=== PATIENT | male | born 1960 | race Caucasian/White ===

== ENCOUNTER 2023-03-22 13:57 | Outpatient (OUT) | payer OTHER, SELFPAY ==
--- NOTE | 2023-03-22 14:00 | CT_ITS ---
[address] [address] Patient Name: ZENA METZGER MRN: [id number] date: 1960 Sex: M Assigned Patient Location: CT Current Patient Location: Accession/Order Number: [id number] Exam Date: 03/22/2023 14:08 Report Date: 03/23/2023 07:26 At the request of: TYSHAWN SALMON Procedure: CT chest wo con EXAMINATION: CT chest wo con HISTORY: Multiple Pulmonary Nodules R91.8 COMPARISON: 09/22/2022 TECHNIQUE: Multi-planar CT images were created with IV contrast. Axial, Coronal, and Sagittal images. Dose reduction techniques were achieved by using automated exposure control and/or adjustment of mA and/or kV according to patient size and/or use of iterative reconstruction technique. FINDINGS: LUNGS: Stable 1.3 x 0.5 cm irregularly shaped solid pulmonary nodule in the left upper lobe best seen on axial images 23 through 25. There is been interval development of subpleural opacity measuring 10.5 x 9.4 mm on axial image 37. New area of subtle groundglass attenuation identified in the right lower lobe measuring 5.1-3.3 cm PLEURA: No pneumothorax or pleural effusion VASCULATURE: No abnormality. KM: No mass or adenopathy. MEDIASTINUM: No mass or adenopathy. CARDIAC: No enlargement or pericardial effusion. Moderate coronary atherosclerosis AORTA: Right-sided aortic arch. Mild atherosclerosis CHEST WALL: No mass or axillary adenopathy. BONES: No bone lesion or fracture. LIMITED ABDOMEN: No suspicious findings. Limited images of the upper abdomen. OTHER: Negative. CT/CT chest wo con IMPRESSION: Stable 1.3 x 0.5 cm left upper lobe nodule New subpleural nodule superior segment right lower lobe New 5.1 cm area of groundglass attenuation the right lower lobe Continued surveillance recommended, consider follow-up CT exam in 3 months Electronically authenticated by: ARMANDO RESENDIZ Date: 03/23/2023 07:26
== END 2023-03-22 13:58 | disposition home or self-care (01) ==
LOC: CT 13:57
PROVIDERS: Visit Provider Internal Medicine
DX: R91.8 Other nonspecific abnormal finding of lung field (principal)
CPT/HCPCS: 71250

== ENCOUNTER 2023-04-21 15:31 | Outpatient (OUT) | payer OTHER, SELFPAY ==
[2023-04-21 15:57] LABS: Basophils Percent Auto 0.5 % (0.2-2.0); Hematocrit 43.1 % (42.0-54.0); Hemoglobin 14.8 g/dL (14.0-18.0); Immature Granulocytes Abs Auto 0.04 10^3/uL (0.00-0.03); Immature Granulocytes Pct Auto 0.5 % (0.0-0.5); Lymphocytes Absolute Auto 1.2 10^3/uL (1.2-3.8); Lymphocytes Percent Auto 16.4 % (20.5-60.0); Mean Corpuscular HGB Conc 34.3 g/dL (29.9-35.2); Mean Corpuscular Hemoglobin 31.8 pg (25.9-34.0); Mean Corpuscular Volume 92.7 fL (80.0-94.0); Mean Platelet Volume 10.1 fL (9.5-13.5); Monocytes Absolute Auto 0.7 10^3/uL (0.3-0.8); Monocytes Percent Auto 8.7 % (1.7-12.0); Neutrophils Absolute Auto 5.6 10^3/uL (1.4-6.5); Neutrophils Percent Auto 73.9 % (43.0-75.0); Platelet Count 213 10^3/uL (150-450); Red Blood Count 4.65 10^6/uL (4.70-6.10); Red Cell Distribution Width 12.9 % (11.0-15.0); White Blood Count 7.5 10^3/uL (4.0-11.0)
[2023-04-21 16:11] LABS: Alanine Aminotransferase 20 U/L (16-63); Albumin Globulin Ratio 1.3; Alkaline Phosphatase 89 U/L (46-116); Anion Gap 9.7; Aspartate Amino Transferase 12 U/L (15-37); BUN Creatinine Ratio 12.9; Bilirubin Total 0.7 mg/dL (0.2-1.0); Calcium 8.4 mg/dL (8.5-10.1); Carbon Dioxide 30.7 mmol/L (21.0-32.0); Chloride 104 mmol/L (98-107); Chol HDL Ratio 2.5; Cholesterol 112 mg/dL (<=200); Estimated GFR (African America >60 (>=60); Estimated GFR (Non-African Ame >60 (>=60); Globulin 3.2 g/dL; Glucose 74 mg/dL (74-106); HDL Cholesterol 45 mg/dL (40-60); LDL Cholesterol Calculated 58.2 mg/dL; Potassium 4.4 mmol/L (3.5-5.1); Sodium 140 mmol/L (136-145); Total Protein 7.2 g/dL (6.4-8.2); Triglycerides 44 mg/dL (<=150); VLDL CHOLESTEROL 8.8 mg/dL
== END 2023-04-21 15:32 | disposition home or self-care (01) ==
PROVIDERS: PCP Family Medicine; Visit Provider Nurse Practitioner Acute Care
DX: I25.10 Atherosclerotic heart disease of native coronary artery without angina pectoris (principal)
CPT/HCPCS: 36415; 80053; 80061; 85025

== ENCOUNTER 2023-06-21 14:36 | Outpatient (OUT) | payer OTHER, SELFPAY ==
--- NOTE | 2023-06-21 14:38 | CT_ITS ---
The [address] [address] Patient Name: ZENA METZGER MRN: [id number] date: 1960 Sex: M Assigned Patient Location: CT Current Patient Location: Accession/Order Number: [id number] Exam Date: 06/21/2023 14:46 Report Date: 06/22/2023 01:57 At the request of: TYSHAWN SALMON Procedure: CT chest wo con EXAMINATION: CT chest wo con HISTORY: Multiple Pulmonary Nodules ; follow-up nodules COMPARISON: CT chest 03/22/2023 TECHNIQUE: Multi-planar CT images were obtained without and/or with IV contrast as indicated by examination type. Axial, Coronal, and Sagittal images. Dose reduction techniques were achieved by using automated exposure control and/or adjustment of mA and/or kV according to patient size and/or use of iterative reconstruction technique. FINDINGS: LUNGS: No suspicious pulmonary nodules or acute infiltrates. Mild emphysematous changes. PLEURA: No mass, effusion, or pneumothorax. VASCULATURE: No abnormality. KM: No mass or adenopathy. MEDIASTINUM: No mass or adenopathy. CARDIAC: No enlargement, pericardial thickening, or significant calcification. AORTA: No aneurysm or dissection. CHEST WALL: No mass or axillary adenopathy. BONES: No bone lesion or fracture. LIMITED ABDOMEN: No suspicious findings Limited images of the upper abdomen. OTHER: Negative. CT/CT chest wo con IMPRESSION: 1. Lung-RADS 2- Benign Appearance or Behavior. Nodules with a very low likelihood of becoming a clinically active cancer due to size or lack of growth. Follow-up CT Chest in 1 year. Electronically authenticated by: ANDREW GIBBONS Date: 06/22/2023 01:57
== END 2023-06-21 14:37 | disposition home or self-care (01) ==
LOC: CT 14:36
PROVIDERS: PCP Family Medicine; Visit Provider Internal Medicine
DX: R91.8 Other nonspecific abnormal finding of lung field (principal)
CPT/HCPCS: 71250

== ENCOUNTER 2023-07-26 07:26 | Outpatient (OUT) | payer OTHER, SELFPAY ==
--- NOTE | 2023-08-01 15:47 | W.PM.PROCNOT ---
Date of procedure: 07/22/23 Procedure: 6-Minute Walk Test Indication: Chronic hypoxic respiratory failure Baseline data: Initial blood pressure: 110/71 Initial heart rate: 96 Initial oxygenation: SpO2 95% on room air. Initial Ancelmo score: 0 MMRC: 2 Procedure: A 6-Minute Walk Test was initiated according to standard protocol. The patient ambulated for a total of 6 minutes with the lowest documented SpO2 measured at 91% on room air with a maximum heart rate of 111. The maximum Ancelmo score was 4, which was at the end of the walk. Symptoms reported: lightheaded . During recovery, blood pressure was 116/69 with a heart rate of 98. SpO2 was 96% on room air, with Ancelmo score 3. Total number of stops: 0. Total distance walked was 308m, which was 67% of predicted walk distance. Impressions: No desaturations during ambulation. Mildly decreased walk distance. Unclear relationship with complaints of lightheaded compared to heart rate, SpO2, or Ancelmo score. Recommendations: No supplemental O2 required with rest and ambulation/activity. Clinical correlation required. Surgeon: Shade Nuñez
== END 2023-07-26 11:22 | disposition home or self-care (01) ==
LOC: CARD 07:26
PROVIDERS: PCP Internal Medicine; Visit Provider Internal Medicine
DX: J96.11 Chronic respiratory failure with hypoxia (principal)
CPT/HCPCS: 94618

== ENCOUNTER 2024-03-11 06:03 | Emergency (ER) | payer OTHER, SELFPAY ==
[2024-03-11 06:06] VITALS: BP 131/70; PULSE 85; TEMP 36.5; O2SAT 97; BMI 23.3
--- OUTSIDE RECORDS SUMMARY | 2024-03-11 06:10 | XMS_ITS | CCD ---
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 Celso Rico Attending Sandi vailable Sam, Dr. Tyshawn Dickson Referring Unavailab le Mel Bansal Primary Care Unavailable MD Dex Mas Attending Unavailable Mel Bansal Primary Care Unavailable Clover, Dr. Celso Rico Referring Sandi MD Dex Mayer Admitting Unavailable DIPESH, PK Attending Unavailable DIPESH, PK Admitting Unavailable BANSAL, DR MEL Calero Primary Care Unavailable DIPESH, PK Consulting Unavailable BANSAL, DR MEL Calero Primary Care Unavailable SAMSA, TYSHAWN Attending Unavailable SAMSA, TYSHAWN Admitting Unavailable WEST, DR ARMANDO Gooden Consulting Unavailable SAMSA, TYSHAWN Consulting Unavailable DIPESH, PK Attending Unavailable DIPESH, PK Admitting Unavailable BANSAL, DR MEL Calero Primary Care Unavailable DIPESH, PK Consulting Unavailable DIPESH, PK Attending Unavailable DPIESH, PK Admitting Unavailable BANSAL, DR MEL Calero Primary Care Unavailable DIPESH, PK Consulting Unavailable DIPESH, PK Admitting Unavailable BANSAL, DR MEL Calero Primary Care Unavailable DIPESH, PK Consulting Unavailable DIPESH, PK Attending Unavailable BANSAL, DR MEL Calero Primary Care Unavailable BANSAL, DR MEL Calero Attending Unavailable BANSAL, DR MEL Calero Admitting Unavailable BANSAL, DR MEL Calero Consulting Unavailable SAMSA, TYSHAWN Consulting Unavailable BANSAL, DR MEL Calero Primary Care Unavailable WEST, DR ARMANDO Gooden Consulting Unavailable SAMSA, TYSHAWN Attending Unavailable SAMSA, TYSHAWN Admitting Unavailable SAMSA, TYSHAWN Consulting Unavailable NIMISHA, DR MEL Calero Primary Care Unavailable ALESSIA DURHAM Attending Unavailable ALESSIA DURHAM Admitting Unavailable MARKER, DR WHITTINGTON Consulting Unavailable ALESSIA DURHAM Consulting Unavailable ARMANDO ZULETA Consulting Unavailable NIMISHA, DR MEL Calero Primary Care Unavailable NIMISHA, DR MEL Calero Consulting Unavailable NIMISHA, DR MEL Calero Attending Unavailable NIMISHA, DR MEL Calero Admitting Unavailable URIOSTEGUI, TAMIE Consulting Unavailable NIMISHA, DR MEL Calero Primary Care Unavailable SAMSA, TYSHAWN Attending Unavailable SAMSA, TYSHAWN Admitting Unavailable SAMSA, TYSHAWN Consulting Unavailable NIMISHA, DR MEL Calero Primary Care Unavailable SAMSA, TYSHAWN Attending Unavailable SAMSA, TYSHAWN Admitting Unavailable SAMSA, TYSHAWN Consulting Unavailable NIMISHA, DR MEL Calero Primary Care Unavailable SAMSA, TYSHAWN Attending Unavailable SAMSA, TYSHAWN Admitting Unavailable SAMSA, TYSHAWN Consulting Unavailable POLICARO, ANGELITO Consulting Unavailable NIMISHA, DR MEL Calero Consulting Unavailable NIMISHA, DR MEL Calero Primary Care Unavailable NIMISHA, DR MEL Calero Attending Unavailable NIMISHA, DR MEL Calero Admitting Unavailable Nimisha, Dr. Mel Fox Primary Care Unavailab jerry Bansal, Dr. Mel Fox Referring Unavailab jerry Marquez, Dr. Luiz Franz Attending Unavail able Mel Bansal MD Primary Care Provider CELSO IBARRA Attending Unavailable MEL BANSAL Primary Care Unavailable MACK HAAS Attending Unavailable CARLEEN HECTOR Attending Unavailable Medications Current Medications Medication Drug Class(es) Dates Sig (Normalized) Sig (Original) [id number] 200 actuat albuterol 0.09 mg/actuat metered dose inhaler (5 sources) beta2-Adrenergic Agonist take 2 puff(s) by inhalation every four hours albuterol (ProAir HFA) 90 mcg/actuation inhaler Inhale 2 puffs every 4 hours if needed. 0 Active take 2 puff(s) by in halation every four hours as needed ProAir HFA 108 (90 Base) MCG/ACT AERS INHALE 2 PUFFS EVERY 4 HOURS NEEDED Quantity: 0 Refills: 0 Ordered: 13-May-2022 DO Active albuterol 0.833 mg/ml / ipratropium bromide 0.167 mg/ml inhalation solution (5 sources) Anticholinergic, beta2-Adrenergic Agonist take 3 mL by inhalation every four hours as needed ipratropium-albuteroL (Duo-Neb) 0.5-2.5 mg/3 mL nebulizer solution Take 3 mL by nebulization every 4 hours if needed. 0 Active take 1 [IU] by inhal ation every four hours as needed Ipratropium-Albuterol 0.5-2.5 (3) MG/3ML Inhalation Solution USE 1 UNIT DOSE IN NEBULIZER EVERY 4 HOURS NEEDED. Quantity: 0 Refills: 0 Ordered: 13-May-2022 DO Active ascorbic acid 1000 mg oral tablet (5 sources) Vitamin C take 1 tablet by mouth once daily ascorbic acid (Vitamin C) 1,000 mg tablet Take 1 tablet (1,000 mg) by mouth once daily. 0 Active aspirin 81 mg delayed release oral tablet (5 sources) Platelet Aggregation Inhibitor, Nonsteroidal Anti-inflammatory Drug take 1 tablet by mouth once daily aspirin 81 mg EC tablet Take 1 tablet (81 mg) by mouth once daily. 0 Active atorvastatin 40 mg oral tablet (5 sources) HMG-CoA Reductase Inhibitor take 1 tablet by mouth once daily atorvastatin (Lipitor) 40 mg tablet Take 1 tablet (40 mg) by mouth once daily. 0 Active empagliflozin 10 mg oral tablet (5 sources) Sodium-Glucose Cotransporter 2 Inhibitor take 1 tablet by mouth once daily empagliflozin (Jardiance) 10 mg Take 1 tablet (10 mg) by mouth once daily. 0 Active 60 actuat formoterol fumarate 0.005 mg/actuat / mometasone furoate 0.2 mg/actuat metered dose inhaler (5 sources) Corticosteroid, beta2-Adrenergic Agonist take 2 puff(s) by inhalation twice daily mometasone-formoterol (Dulera) 200-5 mcg/actuation inhaler Inhale 2 puffs 2 times a day. 0 Active meclizine hydrochloride 25 mg oral tablet (5 sources) Antiemetic meclizine (Antiv ert) 25 mg tablet Take by mouth. TAKE DIRECTED. 0 Active Meclizine HCl - 25 MG Oral Tablet TAKE DIRECTED. Quantity: 0 Refills: 0 Ordered: 13-May-2022 DO Active 24 hr metoprolol succinate 25 mg extended release oral tablet (5 sources) beta-Adrenergic Maverick take 1 tablet by mouth once daily metoprolol succinate XL (Toprol-XL) 25 mg 24 hr tablet Take 1 tablet (25 mg) by mouth once daily. 0 Active sacubitril 24 mg / valsartan 26 mg oral tablet (5 sources) Angiotensin 2 Receptor Maverick take 1 tablet by mouth once daily sacubitriL-valsartan (Entresto) 24-26 mg tablet Take 1 tablet by mouth once daily. 0 Active 10 actuat tiotropium 0.0025 mg/actuat inhalation spray (5 sources) Anticholinergic take 2 puff(s) by inhalation once daily tiotropium (Spiriva Respimat) 2.5 mcg/actuation inhaler Inhale 2 puffs once daily. 0 Active Spiriva Respimat 2.5 MCG/ACT Inhalation Aerosol Solution TAKE 2 INHALATIONS DAILY. Quantity: 0 Refills: 0 Ordered: 13-May-2022 DO Active Problems Active Problems Problem Classification Problem Date Documented Date Episodic/Chronic Biliary tract disease (5 sources) Biliary calculus; Translations: [Calculus of gallbladder without mention of cholecystitis, without mention of obstruction] Onset: 07-10-2023 07-10-2023 Episodic Chronic obstructive pulmonary disease and bronchiectasis (15 sources) Centriacinar emphysema; Translations: [Other emphysema] Onset: 03-29-2022 Chronic Complications of surgical procedures or medical care (2 sources) Hypotension due to drugs; Translations: [Hypotension due to drugs] Onset: 11-21-2023 Episodic Congestive heart failure; nonhypertensive (11 sources) Chronic systolic heart failure; Translations: [Chronic systolic heart failure] Onset: 03-24-2022 Chronic Coronary atherosclerosis and other heart disease (7 sources) Coronary arteriosclerosis; Translations: [Coronary atherosclerosis of unspecified type of vessel, anvik or graft] Onset: 10-25-2022 07-10-2023 Chronic Headache; including migraine (4 sources) Headache; including migraine; Translations: [HEADACHE UNSPECIFIED] Onset: 06-09-2022 Heart valve disorders (1 source) Rheumatic disorders of both mitral and tricuspid valves; Translations: [RHEUMATIC D/O MITRAL TRICUSPID VALV] Onset: 12-02-2021 Chronic Other lower respiratory disease (4 sources) Multiple nodules of lung; Translations: [Other nonspecific abnormal finding of lung field] Episodic Other lower respiratory disease (11 sources) Other nonspecific abnormal finding of lung field; Translations: [Other nonspecific abnormal finding of lung field] Onset: 05-13-2022 Episodic Other lower respiratory disease (2 sources) Nodule of lung; Translations: [Solitary pulmonary nodule] Onset: 07-10-2023 07-12-2023 Episodic Other lower respiratory disease (2 sources) Solitary pulmonary nodule; Translations: [Solitary pulmonary nodule] Onset: 07-12-2023 Episodic Other upper respiratory disease (5 sources) Allergic rhinitis; Translations: [Allergic rhinitis, cause unspecified] Onset: 07-10-2023 07-10-2023 Chronic Respiratory failure; insufficiency; arrest (adult) (10 sources) Chronic hypoxemic respiratory failure; Translations: [Chronic respiratory failure] Onset: 07-10-2023 07-12-2023 Chronic Comment on above: Uses O2 with during heat and humidity; Substance-related disorders (12 sources) Tobacco dependence syndrome; Translations: [Unspecified drug-induced mental disorder] Onset: 10-29-2021 07-12-2023 Chronic Thyroid disorders (5 sources) Hypothyroidism; Translations: [Unspecified acquired hypothyroidism] Onset: 07-10-2023 07-10-2023 Chronic Unclassified (1 source) CONTACT W/AND (SUSP) EXPOS COVID-19; Translations: [CONTACT W/AND (SUSP) EXPOS COVID-19] Onset: 12-23-2021 Past or Other Problems Problem Classification Problem Date Documented Da te Episodic/Chronic Blindness and vision defects (1 source) Unspecified visual disturbance; Translations: [UNSPECIFIED VISUAL DISTURBANCE] Onset: 06-11-2022 Episodic Conditions associated with dizziness or vertigo (1 source) Dizziness and giddiness; Translations: [DIZZINESS AND GIDDINESS] Onset: 06-11-2022 Episodic Nonspecific chest pain (6 sources) Chest pain, unspecified; Translations: [Other chest pain] Onset: 10-14-2021 Episodic Other aftercare (1 source) Other usp (current) drug therapy; Translations: [OTH PRISON CURRENT DRUG THERAPY] Onset: 10-14-2021 Episodic Other connective tissue disease (1 source) Pain in arm, unspecified; Translations: [PAIN IN ARM UNSPECIFIED] Onset: 10-29-2021 Episodic Other ear and sense organ disorders (1 source) Tinnitus, unspecified ear; Translations: [TINNITUS UNSPECIFIED EAR] Onset: 06-11-2022 Episodic Other lower respiratory disease (4 sources) Other forms of dyspnea; Translations: [OTHER FORMS OF DYSPNEA] Onset: 11-27-2021 Episodic Other screening for suspected conditions (not mental disorders or infectious disease) (1 source) Encounter for screening for malignant neoplasm of respiratory organs; Translations: [ENC SCREEN MALIG NEOPLASM RESP ORGN] Onset: 03-29-2022 Episodic Results Test Name Value Interpretation Reference Range Facility Office Visiton 11-21-2023 Follow-up visit [id number] Zena Lopez 1960 M Date Provider Department Center 11/21/2023 [facility]LEEN TINSLEY [facility] Family History Problem Relation Age of Onset Cancer Mother Family Status - Relation Status Age at Mother Level of Service:70069 MD OFFICE/OUTPATIENT ESTABLISHED MOD MDM 30 MIN Normal [facility] Office Visiton 04-21-2023 Follow-up visit [id number] Zena Lopez 1960 M Date Provider Department Center 04/21/2023 [id number] Family History Problem Relation Age of Onset Cancer Mother Family Status - Relation Status Age at Mother Level of Service:51298 MD OFFICE/OUTPATIENT ESTABLISHED LOW MDM 20-29 MIN Reason for Visit and Comments: Follow-up [607298] - 6 month follow up Normal [facility] Office Visit (Thoracic and E sophageal Surgery)on 04-14-2023 Follow-up visit Diagnoses/Problems Assessed Centrilobular emphysema (492.8) (J43.2) Provider Impressions Mr. Lopez is a pleasant 61-year-old male with a significant history of COPD, moderate to severe, who presents with a lateral left upper lobe 1.3 cm nodule new from last March. CT guided bx was non-diagnostic in June. On recent CT from March this ANDRE lesion is stable. New large RLL GGO which is most likely infectious. He has f/up scan scheduled for June with Dr. Nuñez, we will f/up that scan as well and schedule a virtual visit to follow. Chief Complaint A telephone visit (audio only) between the patient (at the originating site) and the provider (at the distant site) was utilized to provide this telehealth service. Virtual visit History of Present IllnessMr. Lopez is a 61-year-old male with a left upper lobe lung nodule (non-diagnostic biopsy in Jun 2022) who presents with surveillance imaging (at OSH). Stable 1.3 x 0.5cm left upper lobe nodule. Patient denies any significant change in his COPD recently (followed by Dr. Nuñez), no worsening cough or worsening dyspnea.Denies recent hospitalizations. By way of review: patient was referred to me in fall; he has a h/o moderate to severe COPD followed by Dr. Nuñez, Pulmonology. Patient was noted on recent imaging to have bilateral upper lobe nodules. Left upper lobe nodule was 1.3 x 0.6 cm in size, right upper lobe nodule with 0.9 x 0.7 cm in size. These were reportedly new compared to March 2021. The left upper lobe nodule is PET avid with SUV of 2.8, right upper lobe nodule was not PET avid. This was discussed with him by Dr. Oliver's office and he was referred to me. Patient is on 3 inhalers for his COPD. He was hospitalized in 2019 with a severe respiratory infection requiring 2-week hospital stay. Patient had been worked up recently for a 'weak heart' with echo that showed EF of 53%, RVSP 22. And reported negative cardiac catheterization. There is some discussion of perhaps a cardiomyopathy. No h/o IL. Patient had a prior drinking history many years ago. Current smoker, several cigarettes per day down from 2 packs/day. Review of Systems Constitutional: not feeling tired. Eyes: no eyesight problems. ENT: no hearing loss and no nosebleeds. Cardiovascular: no intermittent leg claudication and as noted in HPI. Respiratory: no chronic cough and no shortness of breath. Gastrointestinal: no change in bowel habits and no blood in stools. Genitourinary: no urinary frequency and no hematuria. Skin: no skin rashes. Neurological: no seizures and no frequent falls. Psychiatric: no depression and not suicidal. All other systems have been reviewed and are negative for complaint. Active Problems Problems CAD (coronary artery disease) (414.00) (I25.10) Centrilobular emphysema (492.8) (J43.2) Cholelithiasis without cholecystitis (574.20) (K80.20) Chronic respiratory failure with hypoxia, on home O2 therapy (518.83,799.02,V46.2) (J96.11,Z99.81) Uses O2 with during heat and humidity Cigarette nicotine dependence with nicotine-induced disorder (292.9) (F17.219) Hypothyroid (244.9) (E03.9) Multiple pulmonary nodules (793.19) (R91.8) Overt chronic systolic congestive heart failure (428.22,428.0) (I50.22) Rhinitis, allergic (477.9) (J30.9) Surgical History Problems History of Cyst excision R knee History of Knee arthroscopy Right Family History Mother Family history of malignant neoplasm (V16.9) (Z80.9) Father Family history of cardiac disorder (V17.49) (Z82.49) Social History Problems Current smoker (305.1) (F17.200) 2 ppd X 44 yrs, currently 4 cig day(2021) Allergies NoKnown No Known Allergies Updated By: Anastasia Da Silva; 05/06/2022 10:41:13 AM Current Meds Medication NameInstruction Aspirin 81 MG Oral Tablet Delayed ReleaseTAKE 1 TABLET DAILY. Atorvastatin Calcium 40 MG Oral TabletTAKE 1 TABLET DAILY. Dulera 200-5 MCG/ACT Inhalation AerosolINHALE 2 PUFFS, BY MOUTH, TWICE DAILY. Entresto 24-26 MG Oral TabletTake 1 tablet daily Ipratropium-Albuterol 0.5-2.5 (3) MG/3ML Inhalation SolutionUSE 1 UNIT DOSE IN NEBULIZER EVERY 4 HOURS NEEDED. Jardiance 10 MG Oral TabletTAKE 1 TABLET BY MOUTH ONCE DAILY Meclizine HCl - 25 MG Oral TabletTAKE DIRECTED. Metoprolol Succinate ER 25 MG Oral Tablet Extended Release 24 HourTAKE 1 TABLET DAILY. ProAir HFA 108 (90 Base) MCG/ACT AERSINHALE 2 PUFFS EVERY 4 HOURS NEEDED Spiriva Respimat 2.5 MCG/ACT Inhalation Aerosol SolutionTAKE 2 INHALATIONS DAILY. Vitamin C 1000 MG Oral TabletTAKE 1 TABLET DAILY. Physical Exam Virtual visit only Results/Data CT chest personally reviewed Signatures Electronically signed by : Celso Ibarra DO; May 03 2023 10:38AM EST (Author) Normal [facility] Consultation Noteon 02-25- 23 Consultation Note [id number]#[id number] CD:127 Normal [facility] CT CHEST WO CONon 09-22-2022 CT CHEST WO CON EXAMINATION: CT CHES T WO CON HISTORY: Lung field abnormal COMPARISON: 03/12/2019, 03/24/2022, 04/10/2022 TECHNIQUE: Multi-planar CT images were created with IV contrast. Axial, Coronal, and Sagittal images. Dose reduction techniques were achieved by using automated exposure control and/or adjustment of mA and/or kV according to patient size and/or use of iterative reconstruction technique. FINDINGS: LUNGS: Slight decrease in size of an irregularly-shaped solid noncalcified soft tissue left upper lobe nodule, now measuring a maximum of 1.3 x 0.5 cm axial images 19 and 20. Interval resolution of 9 mm subpleural nodule previously identified in the right upper lobe. No new significant pulmonary nodule or mass. PLEURA: No mass, effusion, or pneumothorax. VASCULATURE: No abnormality. KM: No mass or adenopathy. MEDIASTINUM: No mass or adenopathy. CARDIAC: No enlargement or pericardial effusion. Moderate coronary atherosclerosis AORTA: Right-sided aortic arch. Mild atherosclerosis. CHEST WALL: No mass or axillary adenopathy. BONES: No bone lesion or fracture. LIMITED ABDOMEN: No suspicious findings. Limited images of the upper abdomen. OTHER: Negative. IMPRESSION: Slight decrease in size of a left upper lobe solid noncalcified pulmonary nodule, indeterminate. Electronically authenticated by: ARMANDO RESENDIZ Date: 2022-09-22 15:11 Normal [facility] CBCon 06-28-2022 Erythrocyte distribution width (RBC) [Ratio] 12.8 % Normal 11.5 - 14.5 [facility] Comment on above: Performed By: #### C BC #### [address] [address] Hematocrit (Bld) [Volume fraction] 48.1 % Normal 41.0 - 52.0 [facility] Comment on above: Performed By: #### C BC #### [address] [address] Hemoglobin (Bld) [Mass/Vol] 16.4 g/dL Normal 13.5 - 17.5 [facility] Comment on above: Performed By: #### C BC #### [address] [address] MCHC (RBC) [Mass/Vol] 34.1 g/dL Normal 32.0 - 36.0 [facility] Comment on above: Performed By: #### C BC #### [address] [address] MCV (RBC) [Entitic vol] 93 fL Normal 80 - 100 [facility] Comment on above: Performed By: #### C BC #### [address] [address] NUCLEATED RBC 0.0 /100 WBC Normal 0.0 - 0.0 [facility] Comment on above: Performed By: #### C BC #### [address] [address] Platelets (Bld) [#/Vol] 189 10*3/uL Normal 150 - 450 [facility] Comment on above: Performed By: #### C BC #### [address] [address] RBC 5.18 x10E12/L Normal 4.50 - 5.90 [facility] Comment on above: Performed By: #### C BC #### [address] [address] WBC (Bld) [#/Vol] 8.3 10*3/uL Normal 4.4 - 11.3 [facility] Comment on above: Performed By: #### C BC #### [address] [address] CHEST 1 VIEWon 06-28-2022 CHEST 1 VIEW Patient Name: ZENA LOPEZ STUDY: CHEST 1 VIEW; 06/28/2022 2:43 pm INDICATION: left lung biopsy . COMPARISON: 10/12/2021 ACCESSION NUMBER(S): [id number] ORDERING CLINICIAN: DEX MAS FINDINGS: CARDIOMEDIASTINAL SILHOUETTE: Cardiomediastinal silhouette is normal in size and configuration. LUNGS: Patchy opacity left upper lobe, likely combination of the previously noted upper lobe nodule and sequela of interval biopsy. No pneumothorax. No pleural effusion. ABDOMEN: No remarkable upper abdominal findings. BONES: No acute osseous changes. IMPRESSION: 1. Left upper lobe patchy airspace opacity, likely combination of previously noted pulmonary nodule and sequela of biopsy. No pneumothorax. Electronically signed by: RAMONA ONEAL MD [facility] CHEST 1 VIEW Patient Name: ZENA LOPEZ STUDY: CHEST 1 VIEW; 06/28/2022 1:41 pm INDICATION: Left lung biopsy . COMPARISON: 06/28/2022 ACCESSION NUMBER(S): [id number] ORDERING CLINICIAN: DEX MAS FINDINGS: DEVICES: None CARDIOMEDIASTINAL SILHOUETTE: Cardiomediastinal silhouette is normal in size and configuration.Right-si ded aortic arch. No significant atherosclerotic calcification LUNGS: Improved opacity in the left upper lobe since yesterday. No pneumothorax. No pleural effusion. BONES: No acute osseous changes. IMPRESSION: 1. Interval improvement left apical focal opacity since yesterday. No pneumothorax. Electronically signed by: RAMONA ONEAL MD [facility] IN BIOPSY LUNG PERCUTANEOUS NEEDLEon 06-28-2022 IN BIOPSY LUNG PERCUTANEOUS NEEDLE Patient Name: ZENA LOPEZ STUDY: IN BIOPSY LUNG; PERCUTANEOUS NEEDLE; 06/28/2022 12:15 pm INDICATION: CT needle biopsy ANDRE R91.8: Multiple pulmonary nodules. COMPARISON: None. ACCESSION NUMBER(S): [id number] ORDERING CLINICIAN: CELSO IBARRA TECHNIQUE: SEISMOGRAPHER: Dex Mas MD CONSENT: The patient was informed of the nature of the proposed procedure. The purposes, alternatives, risks, and benefits were explained and discussed. All questions were answered and consent was obtained. RADIATION EXPOSURE: Dose: Exam DLP 449 mGy cm SEDATION: Moderate conscious intravenous sedation services (supervision of administration, induction, and maintenance) were provided by the physician performing the procedure with intravenous fentanyl and versed. Total intra-service sedation time from 8644-1218 hours (25 minutes). The physician was assisted by an independent trained observer, an interventional radiology nurse, in the continuous monitoring of the patient level of consciousness and physiologic status. MEDICATION/CONTRAST: None additional TIME OUT: A time out was performed immediately prior to the procedure start with interventional team, correctly identifying the patient using multiple identifiers and ensuring the appropriate procedure and anatomy (including laterality, if applicable) were identified. The procedure consent form and all relevant laboratory and imaging tests were reviewed. The need for antibiotic administration or patient or procedure specific safety precautions or equipment was reviewed. COMPLICATIONS: None immediate FINDINGS: The patient was positioned supine on the CT scan table. A limited CT scan of the chest was obtained. The left upper lobe lung nodule was identified. Utilizing the CT laser, the overlying skin was marked. The skin overlying this site was prepped and draped in sterile fashion. Local anesthesia was achieved using 2% lidocaine. A small skin incision was made with a scalpel. A 19 gauge coaxial needle was then advanced utilizing intermittent CT guidance. When CT confirmed the tip of the needle within the target lesion, the inner stylet was removed and a biopsy sample was obtained with a 20 gauge biopsy needle. A total of 3 samples were obtained. Samples submitted in formalin for surgical pathology. The stylet was replaced and the needle withdrawn. A sterile, occlusive dressing was applied. The patient tolerated the procedure well with no immediate postprocedural complications. A small, expected amount of perilesional hemorrhage is identified. No pneumothorax. IMPRESSION: CT-guided left upper lobe pulmonary nodule biopsy as above. Electronically signed by: DEX MAS MD Normal [facility] PT/INRon 06-28-2022 PT Coag (PPP) [Time] 12.2 s Normal 9.8 - 13.4 [facility] Comment on above: Performed By: #### P TINR #### [place] [address] PT, INR 1.1 Normal 0.9 - 1.1 [facility] Comment on above: Performed By: #### P TINR #### [place] [id number] [facility] Surgical Pathology Depar tmenton 06-28-2022 [facility] [facility] Surgical Pathology Department Name ZENA LOPEZ Pathologist: Katelynn Cyr MD, Ph.D. Date of Procedure: 06/28/2022 Date Received: 06/28/2022 Date Reported 07/01/2022 Submitting Physician: CELSO IBARRA DO Location: [facility] Copy To/Referring/Attending : DEX MAS MD Other External # FINAL DIAGNOSIS LUNG, LEFT UPPER LOBULE NODULE, BIOPSY: --MINUTE FRAGMENT OF LUNG PARENCHYMA WITHOUT SIGNIFICANT PATHOLOGIC FINDINGS, INSUFFICIENT FOR DIAGNOSIS. SEE NOTE Note: Microscopic examination of H AND E sections demonstrates minute fragments of lung parenchyma without significant abnormalities. Findings might not be patient relations representative of the clinically identified lesion. Clinical correlation is recommended Electronically Signed Out By Katelynn Cyr MD, Ph.D./MAC By the signature on this report, the individual or group listed as making the Final Interpretation/Diagnos is certifies that they have reviewed this case. Diagnostic interpretation performed at [address] [place] [address] Clinical History: Physician Contact Number: [phone] Fixative (A): Formalin Clinical Diagnosis History LEFT LUNG NODULE Specimens Submitted As: A: LEFT UPPER LUNG NODULE Gross Description: Received in formalin, labeled with the patient?s name and hospital number and left lung nodule bx , are multiple minute pink-white, soft tissue fragments aggregating to 0.3 x 0.2 x 0.1 cm. The specimen is submitted in toto in one cassette. RCC rcc/06/28/2022 [facility] Department of Pathology [address] [place] [address] Normal [facility] Comment on above: Performed By: #### [facility] #### [facility] Surgical Pathology Department [address] [place] [address] MRI BRAIN WO CONon 2 MRI BRAIN WO CON MRI BRAIN WITHOUT CONTRAST. INDICATION: Persistent headache COMPARISON: None available. TECHNIQUE: MR imaging of the brain using the following unenhanced sequences: Axial diffusion, axial FLAIR, axial T2 weighted, coronal and sagittal T1, coronal gradient-echo T2. FINDINGS: EXTRA-AXIAL SPACE:Age appropriate ventricles. No extra-axial collection. CEREBRUM: There are T2/FLAIR hyperintense signal changes in the periventricular and deep white matter, which is nonspecific but likely reflective of chronic microvascular ischemic disease. No areas of restricted diffusion. No acute infarct, hemorrhage or mass. CEREBELLUM: No signal abnormality. No areas of restricted diffusion. No acute infarct, hemorrhage or mass. BRAINSTEM: No signal abnormality. No areas of restricted diffusion. No acute infarct, hemorrhage or mass. EXTRACRANIAL STRUCTURES:Paranasal sinuses are clear. Mastoid air cells are clear. Globes and orbits are normal. Normal pituitary gland. Normal calvarium. IMPRESSION: 1. No acute intracranial abnormality. No acute infarct, hemorrhage or discrete intraparenchymal mass. 2. Periventricular white matter signal changes likely reflective of mild microvascular ischemic changes Electronically authenticated by: ATMIE URIOSTEGUI Date: 2022-06-09 13:29 Normal [facility] HEMOGLOBINon 05-21-2022 Hemoglobin (Bld) [Mass/Vol] 15.7 g/dL Normal 14.0-18.0 [facility] Comment on above: Performed By: #### B MP #### [facility] [address] [place] [address] [address] Richard Linares Office Visit (Thoracic and E sophageal Surgery)on 05-13-2022 Follow-up visit Diagnoses/Problems Assessed Multiple pulmonary nodules (793.19) (R91.8) Orders Hypothyroid Stop: Multi-Vitamin Oral Tablet Continue: Aspirin 81 MG Oral Tablet Delayed Release; TAKE 1 TABLET DAILY Continue: Atorvastatin Calcium 40 MG Oral Tablet; TAKE 1 TABLET DAILY Continue: Dulera 200-5 MCG/ACT Inhalation Aerosol; INHALE 2 PUFFS, BY MOUTH, TWICE DAILY Continue: Entresto 24-26 MG Oral Tablet; Take 1 tablet daily Continue: Ipratropium-Albuterol 0.5-2.5 (3) MG/3ML Inhalation Solution; USE 1 UNIT DOSE IN NEBULIZER EVERY 4 HOURS NEEDED Continue: Jardiance 10 MG Oral Tablet; TAKE 1 TABLET BY MOUTH ONCE DAILY Continue: Meclizine HCl - 25 MG Oral Tablet; TAKE DIRECTED Continue: Metoprolol Succinate ER 25 MG Oral Tablet Extended Release 24 Hour; TAKE 1 TABLET DAILY Continue: ProAir HFA 108 (90 Base) MCG/ACT Inhalation Aerosol Solution (Albuterol Sulfate HFA); INHALE 2 PUFFS EVERY 4 HOURS NEEDED Continue: Spiriva Respimat 2.5 MCG/ACT Inhalation Aerosol Solution; TAKE 2 INHALATIONS DAILY Continue: Vitamin C 1000 MG Oral Tablet; TAKE 1 TABLET DAILY Multiple pulmonary nodules Diffusion Capacity DLCO; Status:Active - Retrospective Authorization; Requested for:[id number]; Pre/PostBronchodilator Spirometry; Status:Active - Retrospective Authorization; Requested for:[id number]; Provider Impressions Mr. Lopez is a pleasant 61-year-old male with a significant history of COPD, moderate to severe, who presents with a newly has lateral left upper lobe 1.3 cm nodule new from last March. We discussed the potential differential for this but candidly I did tell him about my concern for malignancy in the setting of his COPD and smoking history. We discussed the Options for biopsy?I would like to start with new pulmonary function tests as a think this will help our decision making process. If they are overall not worse than 2019 he could be a candidate for surgical biopsy/wide wedge resection for diagnosis and treatment with MLND at that time if + malignanct. Likely would not proceed with formal lobectomy given his baseline lung functions and the very peripheral location of the lesion. However, if his PFTs have declined he may be a better candidate for an IR guided biopsy and if malignancy is proven SBRT. We will work on obtaining new lung function testing call him with the results Chief Complaint Pt is here for a new pt office visit History of Present IllnessMrNancy Lopez is a 61-year-old male with moderate to severe COPD followed by Dr. Nuñez, Pulmonology. Patient was noted on recent imaging to have bilateral upper lobe nodules. Left upper lobe nodule was 1.3 x 0.6 cm in size, right upper lobe nodule with 0.9 x 0.7 cm in size. These were reportedly new compared to March 2021. The left upper lobe nodule is PET avid with SUV of 2.8, right upper lobe nodule was not PET avid. This was discussed with him by Dr. Oliver's office and he was referred to me. Patient is on 3 inhalers for his COPD. Most recent PFTs are from 2019. FEV1 at that time is 58%, FVC 79%, DLCO 64%. Patient denies any significant change in his COPD recently, no worsening cough or worsening dyspnea. He was hospitalized in 2019 with a severe respiratory infection requiring 2-week hospital stay. Denies recent hospitalizations. Patient has additionally been worked up recently for a 'weak heart' with echo that showed EF of 53%, RVSP 22. And reported negative cardiac catheterization. There is some discussion of perhaps a cardiomyopathy. No h/o [place]. Patient had a prior drinking history many years ago. Current smoker, several cigarettes per day down from 2 packs/day. Review of Systems Constitutional: not feeling tired. Eyes: no eyesight problems. ENT: no hearing loss and no nosebleeds. Cardiovascular: no intermittent leg claudication and as noted in HPI. Respiratory: shortness of breath, but no chronic cough. Gastrointestinal: no change in bowel habits and no blood in stools. Genitourinary: no urinary frequency and no hematuria. Skin: no skin rashes. Neurological: no seizures and no frequent falls. Psychiatric: no depression and not suicidal. All other systems have been reviewed and are negative for complaint. Active Problems Problems CAD (coronary artery disease) (414.00) (I25.10) Centrilobular emphysema (492.8) (J43.2) Cholelithiasis without cholecystitis (574.20) (K80.20) Chronic respiratory failure with hypoxia, on home O2 therapy (518.83,799.02,V46.2) (J96.11,Z99.81) Uses O2 with during heat and humidity Cigarette nicotine dependence with nicotine-induced disorder (292.9) (F17.219) Hypothyroid (244.9) (E03.9) Multiple pulmonary nodules (793.19) (R91.8) Overt chronic systolic congestive heart failure (428.22,428.0) (I50.22) Rhinitis, allergic (477.9) (J30.9) Surgical History Problems History of Cyst excision R knee History of Knee arthroscopy Right Family History Mother Family history of malignant neoplasm (V16.9) (Z80.9) Father (more content not included)... Normal [employer] Tobacco Screening.on 022 Fall risk assessment a) No falls within the last year -Cardiology- [facility] [address] Work Phone: Tobacco use status [facility] a) Yes -Cardiology- [facility] [address] Work Phone: FUNGAL AB QUANTITAIVE DOUBLE IMMUNODIFFUon 04-17-2022 Aspergillus flavus Negative Normal Neg:<1:1 [facility] Comment on above: Performed By: #### C VDTBH #### [facility] [address] [place] [address] Dr. Richard Linares Aspergillus fumigatus Negative Normal Neg:<1:1 [facility] Comment on above: Performed By: #### C VDTBH #### [facility] [address] [place] [address] Dr. Richard Linares Aspergillus niger Negative Normal Neg:<1:1 [facility] Comment on above: Performed By: #### C VDTBH #### [facility] [address] [place] [address] Dr. Richard Linares Blastomyces Negative Normal Neg:<1:1 [facility] Comment on above: Performed By: #### C VDTBH #### [facility] [address] [place] [address] Dr. Richard Linares HISTOPLASMA CAP AB QUANT DID on 04-16-2022 Histoplasma Mycelial CF Ab. Negative Normal Neg:<1:2 [facility] Comment on above: Performed By: #### B MP #### [facility] [address] [place] [address] Dr. Richard Linares Histoplasma Yeast CF Ab 1:2 Normal Neg:<1:2 [facility] Comment on above: Performed By: #### B MP #### [facility] [address] [place] [address] Dr. Richard Linares ANTI NEUTROPHIL CYTOPLASMIC AB (ANCA) PRon 04-15-2022 Anti-MPO Antibodies <0.2 Normal 0.0-0.9 [facility] Comment on above: Result Comment: Perf ormed at: BN Performed By: #### B MP #### [facility] [address] [place] [address] Dr. Richard Linares Anti-PR3 Antibodies <0.2 Normal 0.0-0.9 [facility] Comment on above: Result Comment: Perf ormed at: BN Performed By: #### B MP #### [facility] [address] [place] [address] Dr. Richard Linares Atypical pANCA <1:20 Normal Neg:<1:[address] [facility] Comment on above: Result Comment: The atypical pANCA pattern has been observed in a significant percentage of patients with ulcerative colitis, primary sclerosing cholangitis and autoimmune hepatitis. Performed at: CB Performed By: #### B MP #### [facility] [address] [place] [address] Dr. Richard Linares Cytoplasmic (C-ANCA) <1:20 Normal Neg:<1:20 [facility] Comment on above: Result Comment: Perf ormed at: CB Performed By: #### B MP #### [facility] [address] [place] [address] Dr. Richard Linares Perinuclear (P-ANCA) <1:20 Normal Neg:<1:20 [facility] Comment on above: Result Comment: The presence of positive fluorescence exhibiting P-ANCA or C-ANCA patterns alone is not specific for the diagnosis of Arnulfo's Granulomatosis (WG) or microscopic polyangiitis. Decisions about treatment should not be based solely on ANCA IFA results. The International ANCA Group Consensus recommends follow up testing of positive sera with both MD-3 and MPO-ANCA enzyme immunoassays. As many as 5% serum samples are positive only by EIA. Ref. AM J Clin Pathol 1999;111:507-513. Performed at: CB Performed By: #### B MP #### [facility] [address] [place] [address] Dr. Richard Linares CYCLIC CITRULLINATED PEPTIDE AB (CCP)on 04-15-2022 CCP Antibodies IgG/IgA 1 units Normal 0-19 [facility] Comment on above: Result Comment: Nega tive <20 Weak positive 20 - 39 Moderate positive 40 - 59 Strong positive >59 Performed By: #### C VDTBH #### [facility] [address] [place] [address] Dr. Richard Linares HISTOPLASMA GALACTOMANNAN AG URINEon 04-15-2022 Histoplasma Gal'madhuri Ag <0.5 Normal <0.5 ng/mL [facility] Comment on above: Performed By: #### H ISTGAL #### [facility] [address] [place] [address] Dr. Richard Linares OSCAR EIA W/REFLEX 5 BIOMARKER Son 04-14-2022 OSCAR Direct Negative Normal Negative [facility] Comment on above: Performed By: #### C VDTBH #### [facility] [address] [place] [address] Dr. Richard Linares ANGIOTENSION-CONVERTING ENZY ME (MATT)on 04-14-2022 MATT 15 U/L Normal 14-82 [facility] Comment on above: Performed By: #### A NGIOC #### [facility] [address] [place] [address] Dr. Richard Linares ANTISCLERODERMA ABon 022 Antiscleroderma-70 Antibodies <0.2 Normal 0.0-0.9 [facility] Comment on above: Performed By: #### A NSCLER #### [facility] [address] [place] [address] Dr. Richard Linares RHEUMATOID FACTORon 04-14-20 22 RA Latex Turbid. <10.0 Normal <14.0 [facility] Comment on above: Performed By: #### B MP #### [facility] [address] [place] [address] Dr. Richard Linares SED RATE WESTERGRENon 2021 SED RATE 1 mm/hr Normal <=20 [facility] Comment on above: Performed By: #### S EDR #### [facility] [address] [place] [address] Dr. Richard Linares PET CT SKULL BASE MID THIGHo n 04-12-[address] SKULL BASE MID THIGH NUCLEAR MEDICINE PET/CT HISTORY: Solitary pulmonary nodule. COMPARISON: CT chest 03/24/2022. METHOD: 13.05 mCi of F-18 FDG was administered intravenously. A low-dose, noncontrast CT scan was performed for attenuation correction and anatomical localization. A low dose, noncontrast and nondiagnostic CT scan was performed for attenuation correction and anatomic localization. Mediastinal blood pool SUV max 1.6 using the patient's body weight as the normalization method. FINDINGS: HEAD AND NECK: There are no metabolically active lymph nodes in the neck. CHEST: There are no metabolically active mediastinal, hilar, or axillary lymph nodes. The major airways are patent. There is no pericardial effusion. There is no evidence of abnormal metabolic uptake in the esophagus. There are coronary artery calcifications. There is a left apical metabolically active pulmonary nodule measuring 6 mm with a maximum SUV of 2.8. There are no pleural effusions. There is no pneumothorax. ABDOMEN AND PELVIS: There is no evidence of abnormal metabolic activity in the liver or adrenal glands. There is no evidence of abnormal metabolic active lymph nodes in the abdomen or pelvis. There is no free fluid. There is physiologic uptake in the urinary system and bowel. There are numerous gallstones. MUSCULOSKELETAL: There is no evidence of abnormal metabolically active bony lesions. IMPRESSION: Left apical metabolically active pulmonary nodule measuring 6 mm. Recommend tissue sampling. Numerous gallstones. Electronically authenticated by: ANGELITO MILAN Date: 2022-04-12 14:48 Normal [facility] CT LUNG CANCER SCREENINGon 0 03-25-2022 CT LUNG CANCER SCREENING EXAMINATION: CT LUNG CANCER SCREENING HISTORY: Nicotine dependence , smoker, cough COMPARISON: 03/17/2021 TECHNIQUE: Axial, Coronal, and Sagittal images were created without the administration of IV contrast material. Dose reduction techniques were achieved by using automated exposure control and/or adjustment of mA and/or kV according to patient size and/or use of iterative reconstruction technique. FINDINGS: LUNGS: 1.3 x 0.6 cm left upper lobe solid and semisolid nodule best visualized on axial image #34, new from the prior exam. 0.9 x 0.7 cm subpleural nodule posterior right upper lobe axial image 51, new from the prior exam. Mild centrilobular emphysema. PLEURA: No mass, effusion, or pneumothorax. VASCULATURE: No abnormality. KM: No mass or pathologic adenopathy. MEDIASTINUM: No mass or pathologic adenopathy. CARDIAC: No enlargement or significant pericardial effusion. Mild coronary atherosclerosis AORTA: Right-sided aortic arch. No aortic aneurysm. Mild atherosclerosis. CHEST WALL: No mass or axillary adenopathy BONES: No bone lesion or fracture. LIMITED ABDOMEN: No suspicious findings. Limited images of the upper abdomen. OTHER: Negative. IMPRESSION: 1.3 x 0.6 cm left upper lobe nodule. New 0.9 cm right upper lobe subpleural nodule. PET scan recommended for further evaluation LUNG SCREENING: Lung-RADS Category 4A- Suspicious. Findings for which additional diagnostic testing and/ or tissue sampling is recommended. 3 month LDCT; PET/CT may be used when there is a >= 8 mm solid component. Electronically authenticated by: ARMANDO RESENDIZ Date: 2022-03-25 08:22 Normal [facility] ECHOCARDIO M/2D COMPLETEon 0 03-24-2022 ECHOCARDIO M/2D COMPLETE Patient: ZENA LOPEZ Exam Date: 03/24/2022 : 1960 Gender:M Ordering : PK LANDON Admission #: [id number] Family : DR MEL Valera BANSAL . Order #: [id number] CLICK HERE TO VIEW EXAM ECHOCARDIOGRAM REPORT PROCEDURE: CARDIO PULMONARY ECHOCARDIO M/2D COMP INDICATIONS: Acute on chronic systolic heart failure, COPD COMPARISON: None. DESCRIPTION: COMPLETE ECHOCARDIOGRAM Real-time transthoracic echocardiography with 2D, M-mode, spectral and color flow Doppler performed. QUALITY: Technical quality was good. 72 168# 110/64 HR 89 LEFT VENTRICLE: Normal chamber size. Normal left ventricular wall thickness. LV EF: Global left ventricular systolic function is normal. Calculated left ventricular ejection fraction is 53%. The interventricular septum is abnormal in motion possibly due to bundle branch block DIASTOLIC: Normal diastolic function. ATRIAL SEPTUM: Inadequately seen. LEFT ATRIUM: Normal chamber size. RIGHT ATRIUM: The right atrium is at upper normal limits of normal. RIGHT VENTRICLE: Mild dilatation. Normal right ventricular systolic function. TRICUSPID VALVE: Normal mobility and thickness. No stenosis with trivial regurgitation. No evidence of pulmonary hypertension. RVSP 22 mmHg MITRAL VALVE: Normal mobility and thickness. No evidence of mitral valve stenosis. Trivial mitral regurgitation. AORTIC VALVE: Normal trileaflet appearance. No evidence of aortic valve stenosis. No aortic regurgitation. AORTIC ROOT: Normal diameter and appearance. Ascending aorta is normal in size. PULMONIC VALVE: Not well visualized. No stenosis. Trivial regurgitation. PERICARDIUM: No evidence of pericardial effusion. IVC: Within normal limits. IVC is normal in size. CONCLUSION: Global left ventricular systolic function is normal; visually estimated ejection fraction is 55%. Abnormal septal motion. Normal diastolic function. The right atrium is upper normal limits in size. The right ventricle is mildly dilated with normal systolic function. No significant valvular abnormalities. Adult Echocardiography Procedure Report Left Ventricle Left Atrium Mitral Valve Right Ventricle Aorta Aortic Valve Peak Velocity (Antegrade Flow): 1.25 m/s AoV Area (Peak Emir): 2.15 cm2, 2.15 cm2 Peak Velocity(Antegrade Flow): 1.25 m/s Peak Gradient(Antegrade Flow): 6.28 mm[Hg] Tricuspid Valve Peak Velocity (Regurgitant Flow): 2.17 m/s Peak Velocity: 0.41 m/s Pulmonic Valve PV Max Emir (0.6 - 0.9 m per sec): 0.91 m/s PV Max Gradient: 3.32 mm[Hg] Right Atrium Dictated by: Neel Lu M.D. on 03/24/2022 at 17:28 Approved by: Neel Lu M.D. on 03/24/2022 at 17:32 Normal [facility] PROF CHEM 8 (BAS METB)on Anion gap [Moles/Vol] 13.4 mmol/L Normal [facility] Comment on above: Performed By: #### C VDTBH #### [facility] [address] [place] [address] [address] Richard Linares Calcium [Mass/Vol] 9.0 mg/dL Normal 8.5-10.1 [facility] Comment on above: Performed By: #### C VDTBH #### [facility] [address] [place] [address] Dr. Richard Linares Chloride [Moles/Vol] 102 mmol/L Normal 98-107 [facility] Comment on above: Performed By: #### C VDTBH #### [facility] [address] [place] [address] Dr. Richard Linares CO2 [Moles/Vol] 32.1 mmol/L Critically high 21.0-32.0 [facility] Comment on above: Performed By: #### C VDTBH #### [facility] [address] [place] [address] Dr. Richard Linares Creatinine [Mass/Vol] 1.00 mg/dL Normal 0.70-1.30 [facility] Comment on above: Performed By: #### C VDTBH #### [facility] [address] [place] [address] [address] Richard Linares EGFR-AF VIETNAMESE >=60 Normal >=60 [facility] Comment on above: Performed By: #### C VDTBH #### [facility] [address] [place] [address] Dr. Richard Linares EGFR-NON AF VIETNAMESE >=60 Normal >=60 [facility] Comment on above: Performed By: #### C VDTBH #### [facility] [address] [place] [address] Dr. Richard Linares Glucose [Mass/Vol] 109 mg/dL Critically high 74-106 T [facility] Comment on above: Performed By: #### C VDTBH #### [facility] [address] [place] [address] [address] Richard Linares Potassium [Moles/Vol] 4.5 mmol/L Normal 3.5-5.1 [facility] Comment on above: Performed By: #### C VDTBH #### [facility] [address] [place] [address] [address] Richard Linares Sodium [Moles/Vol] 143 mmol/L Normal 136-145 [facility] Comment on above: Performed By: #### C VDTBH #### [facility] [address] [place] [address] Dr. Richard Linares Urea nitrogen [Mass/Vol] 11.0 mg/dL Normal 7.0-18.0 [facility] Comment on above: Performed By: #### C VDTBH #### [facility] [address] [place] [address] Dr. Richard Linares Urea nitrogen/Creatinine [Mass ratio] 11.0 mg/mg Normal [facility] Comment on above: Performed By: #### C VDTBH #### [facility] [address] [place] [address] Dr. Richard Linares Cardiovascular Lab Reporton 12-22-2021 Cardiovascular Lab Report [facility] Patient Name: Zena Lopez [facility] MR #: [id number] Physician: Carleen Zuniga of [facility] Service Date: 12/21/2021 Division of Birthdate: 1960 Cardiology Room #: [facility] Cardiovascular Services [place] [address] Cardiovascular Laboratory Report INDICATION: The patient is a 61-year-old man who was recently evaluated in Cardiology Clinic because of new onset acute systolic heart failure with an ejection fraction of 35 to 40%. He was referred for cardiac catheterization. PROCEDURES: 1. Right heart catheterization. 2. Access into right internal jugular vein under ultrasound guidance. 3. Bilateral selective coronary angiography from the right radial access. 4. Access into the right radial artery under ultrasound guidance. METHODS: Procedure was explained to the patient with risks and benefits. He signed informed consent. He was brought to lab[employer] wood [employer] in a fasting state. The right neck area was prepped and draped in usual fashion. Micropuncture technique and ultrasound guidance were used for access in the right internal jugular vein. A 6-Greenlandic x 11 cm sheath was placed. A 6-Greenlandic Barboza catheter was used for right catheterization with measurement of pressures and calculation of cardiac output using the estimated Bridget method. Barboza catheter was removed. Modified Tyrone's test was favorable on the right. Access in the right radial artery was obtained using micropuncture technique and ultrasound guidance. A 6-Greenlandic x 11 cm Hydrophilic sheath was advanced. Verapamil was given through the sheath, and heparin was administered intravenously. Bilateral selective coronary angiography was then performed using 6-Greenlandic JL3.5 and JR5 diagnostic catheters. Catheters were removed. Procedure was concluded. The TR band was used for hemostasis in the right radial artery. Manual compression was used for hemostasis in the right internal jugular vein. He will be observed for 3 hours, and then discharged to home. TOTAL SEDATION TIME: 0 minutes. TOTAL FLUORO TIME: 3.42 minutes. TOTAL AIR KERMA: 302 mGy. TOTAL CURRENT VOLUME: 20 mL. HEMODYNAMICS: 1. RA 6. 2. RV 33/-5, 4. 3. PA 35/10, mean 26. 4. Pulmonary capillary wedge pressure 9. 5. AO 119/70, mean 91. 6. Cardiac output 4.52. 7. Cardiac index 2.24. 8. PA sat 67%. 9. AO sat 95%. CORONARY ANGIOGRAPHY: This is a right dominant circulation. 1. Left main: This arises from the left coronary cusp. It bifurcates into left anterior descending and circumflex vessels. The left main has minimal disease. There is evidence of calcification in its distal segment. 2. Left anterior descending: This is a large vessel that has calcifications in its proximal to mid segment with mild diffuse disease in the proximal and mid segment, but no occlusive lesions. 3. Circumflex vessel: This is large and nondominant. It has mild disease in the proximal segment along with calcifications. The rest of the circumflex and branches are free of disease. 4. Right coronary artery: This arises from the right coronary cusp. It is a large and dominant vessel. It has mild luminal irregularities. SUMMARY OF THE FINDINGS: 1. Mild three-vessel coronary artery disease with calcifications noted in the distal left main, proximal and mid LAD, and proximal circumflex with mild atherosclerotic narrowing, but no occlusive lesions. 2. Normal filling pressures. 3. Mild pulmonary hypertension. 4. Mildly reduced cardiac output and cardiac index. RECOMMENDATIONS: 1. Medical therapy for systolic heart failure and nonischemic cardiomyopathy. 2. Medical therapy for mild coronary artery disease. 3. Follow up in Cardiology Clinic. Electronically Signed by: Carleen Hector M.D. 12/26/2021 09:05 A Carleen Hector M.D. Date Dict: 12/21/2021/02:24 P/Carleen Hector M.D. Date Trans: 12/22/2021 04:31 A/lois [id number] cc: Mel Bansal M.D. 1 [facility] [id number] Normal [facility] CBC AUTO DIFFon 12-18-2021 BASO # 0.1 103/ul Normal 0.0-0.1 [facility] Comment on above: Performed By: #### C BC #### [facility] [address] [address] [address] Richard Linares Basophils/100 WBC (Bld) 0.8 % Normal 0.2-2.0 [facility] Comment on above: Performed By: #### C BC #### [facility] [address] [address] [address] Richard Linares EO # 0.0 103/ul Normal 0.0-0.7 [facility] Comment on above: Performed By: #### C BC #### [facility] [address] [address] [address] Richard Linares Eosinophils/100 WBC (Bld) 0.0 % Critically low 0.9-7.0 [facility] Comment on above: Performed By: #### C BC #### [facility] [address] [place] [address] Dr. Richard Linares Erythrocyte distribution width (RBC) [Ratio] 12.9 % Normal 11.0-15.0 [facility] Comment on above: Performed By: #### C BC #### [facility] [address] [place] [address] Dr. Richard Linares Hematocrit (Bld) [Volume fraction] 46.1 % Normal 42.0-54.0 [facility] Comment on above: Performed By: #### C BC #### [facility] [address] [place] [address] Dr. Richard Linares Hemoglobin (Bld) [Mass/Vol] 15.6 g/dL Normal 14.0-18.0 [facility] Comment on above: Performed By: #### C BC #### [facility] [address] [place] [address] Dr. Richard Linares IG # 0.04 10e3/ul Critically high 0.00-0.03 [facility] Comment on above: Performed By: #### C BC #### [facility] [address] [place] [address] Dr. Richard Linares IG % 0.5 % Normal 0.0-0.5 [facility] Comment on above: Performed By: #### C BC #### [facility] [address] [place] [address] Dr. Richard Linares LYMPH # 1.5 103/ul Normal 1.2-3.8 [facility] Comment on above: Performed By: #### C BC #### [facility] [address] [place] [address] Dr. Richard Linares Lymphocytes/100 WBC (Bld) 17.7 % Critically low 20.5-60.0 [facility] Comment on above: Performed By: #### C BC #### [facility] [address] [place] [address] Dr. Richard Linares MANUAL DIFF REQ NO Normal [facility] Comment on above: Performed By: #### C BC #### [facility] [address] [address] [address] Richard Linares MCH (RBC) [Entitic mass] 31.1 pg Normal 25.9-34.0 [facility] Comment on above: Performed By: #### C BC #### [facility] [address] [place] [address] Dr. Richard Linares MCHC (RBC) [Mass/Vol] 33.8 g/dL Normal 29.9-35.2 [facility] Comment on above: Performed By: #### C BC #### [facility] [address] [place] [address] Dr. Richard Linares MCV (RBC) [Entitic vol] 92.0 fL Normal 80.0-94.0 [facility] Comment on above: Performed By: #### C BC #### [facility] [address] [place] [address] Dr. Richard Linares MONO # 0.7 103/ul Normal 0.3-0.8 [facility] Comment on above: Performed By: #### C BC #### [facility] [address] [place] [address] Dr. Richard Linares Monocytes/100 WBC (Bld) 8.7 % Normal 1.7-12.0 [facility] Comment on above: Performed By: #### C BC #### [facility] [address] [place] [address] Dr. Richard Linares NEUT # 6.2 103/ul Normal 1.4-6.5 [facility] Comment on above: Performed By: #### C BC #### [facility] [address] [place] [address] Dr. Richard Linares Neutrophils/100 WBC (Bld) 72.3 % Normal 43.0-75.0 [facility] Comment on above: Performed By: #### C BC #### [facility] [address] [place] [address] Dr. Richard Linares Platelet mean volume (Bld) [Entitic vol] 10.2 fL Normal 9.5-13.5 [facility] Comment on above: Performed By: #### C BC #### [facility] [address] [place] [address] Dr. Richard Linares PLT 197 103/ul Normal 150-450 [facility] Comment on above: Performed By: #### C BC #### [facility] [address] [place] [address] Dr. Richard Linares RBC 5.01 106/ul Normal 4.70-6.10 [facility] Comment on above: Performed By: #### C BC #### [facility] [address] [place] [address] Dr. Richard Linares WBC 8.5 103/ul Normal 4.0-11.0 [facility] Comment on above: Performed By: #### C BC #### [facility] [address] [place] [address] Dr. Richard Linares [facility]on 12-04 SARS-CoV-2 (COVID-19) RNA MOLLY+probe Ql (Unsp spec) Not detected Normal NOT DETECTED [facility] Comment on above: Result Comment: This test is not yet approved or cleared by the [place] FDA. When there are no FDA-approved or cleared tests available, and other criteria are met, FDA can make tests available under an emergency access mechanism called an Emergency Use Authorization (EUA). The EUA for this test is supported by the [place] of Health and Human Service's (HHS's) declaration that circumstances exist to justify the emergency use of in vitro diagnostics for the detection and/or diagnosis of the virus that causes COVID-19. This EUA will remain in effect (meaning this test can be used) for the duration of the COVID-19 declaration justifying emergency of IVDs, unless it is terminated or revoked by FDA (after which the test may no longer be used). When diagnostic testing is negative, the possibility of a false negative should be considered in the context of a patient's recent exposures and the presence of clinical signs and symptoms consistent with SARS-CoV-2. Performed By: #### B MP #### [facility] [address] [place] [address] Dr. Richard Linares PROF CHEM 8 (BAS METB)on Anion gap [Moles/Vol] 6.2 mmol/L Normal [facility] Comment on above: Performed By: #### B MP #### [facility] [address] [address] [address] Richard Linares Calcium [Mass/Vol] 8.2 mg/dL Critically low 8.5-10.1 [facility] Comment on above: Performed By: #### B MP #### [facility] [address] [address] [address] Richard Linares Chloride [Moles/Vol] 102 mmol/L Normal 98-107 [facility] Comment on above: Performed By: #### B MP #### [facility] [address] [place] [address] Dr. Richard Linares CO2 [Moles/Vol] 34.6 mmol/L Critically high 22.0-30.0 [facility] Comment on above: Performed By: #### B MP #### [facility] [address] [place] [address] Dr. Richard Linares Creatinine [Mass/Vol] 0.96 mg/dL Normal 0.66-1.25 [facility] Comment on above: Performed By: #### B MP #### [facility] [address] [place] [address] Dr. Richard Linares EGFR-AF VIETNAMESE >60 Normal >=60 [facility] Comment on above: Performed By: #### B MP #### [facility] [address] [address] [address] Richard Linares EGFR-NON AF VIETNAMESE >60 Normal >=60 [facility] Comment on above: Performed By: #### B MP #### [facility] [address] [address] [address] Richard Linares Glucose [Mass/Vol] 94 mg/dL Normal 74-106 [facility] Comment on above: Performed By: #### B MP #### [facility] [address] [address] [address] Richard Linares Potassium [Moles/Vol] 3.8 mmol/L Normal 3.4-5.0 [facility] Comment on above: Performed By: #### B MP #### [facility] [address] [address] [address] Richard Linares Sodium [Moles/Vol] 139 mmol/L Normal 137-145 [facility] Comment on above: Performed By: #### B MP #### [facility] [address] [address] [address] Richard Linares Urea nitrogen [Mass/Vol] 11.0 mg/dL Normal 7.0-18.0 [facility] Comment on above: Performed By: #### B MP #### [facility] [address] [address] [address] Richard Linares Urea nitrogen/Creatinine [Mass ratio] 11.5 mg/mg Normal [facility] Comment on above: Performed By: #### B MP #### [facility] [address] [address] [address] Richard Linares US carotid doppler BIon 11-05 US carotid doppler BI [facility] [place] [address] Ultrasound Report Signed Patient: Zena Lopez MR#: [id number] : 1960 Acct:[id number] Age/Sex: 61 / M ADM Date: 12/01/21 Loc: Room: Type: [facility] Attending Dr: Pk CASTILLO Ordering Provider: Pk CASTILLO Date of Service: 12/01/21 US/US carotid doppler BI: SYNCOPE AND COLLAPSE Copies to: Pk CASTILLO CAROTID DUPLEX INDICATION: Syncope PROCEDURE: Color-flow duplex scanning is used to interrogate the extracranial carotid arterial system, as well as both vertebral arteries. The proximal right internal carotid artery shows a highest peak systolic velocity of 59.5 cm/s with an end-diastolic velocity of 13.3 cm/s . The mid internal carotid artery measures 77.3 cm/s peak systolic with an end-diastolic velocity of 26.3 cm/s . The distal segment measures 69 cm/s peak systolic with an end diastolic velocity of 22.3 cm/s . The velocities of the right common carotid artery are 105 cm/s peak systolic and 23.6 cm/s end- diastolic proximally and 111 cm/s peak systolic and 30.2 cm/s end-diastolic distally. The peak systolic velocity ratio of the internal to the common carotid artery is 0.7 . The right external carotid artery measures 96.6 cm/s peak systolic. The right vertebral artery is patent at 93.2 cm/s peak systolic and with antegrade flow. The proximal left internal carotid artery shows a highest peak systolic velocity of 77.6 cm/s with an end-diastolic velocity of 22.6 cm/s . The mid internal carotid artery measures 82.6 cm/s peak systolic with an end-diastolic velocity of 31 cm/s . The distal segment measures 75.2 cm/s peak systolic with an end diastolic velocity of 28 cm/s . The velocities of the left common carotid artery are 89 cm/s peak systolic and 19.7 cm/s end-diastolic proximally and 84.5 cm/s peak systolic and 24.6 cm/s end-diastolic distally. The peak systolic velocity ratio of the internal to the common carotid artery is 0.93 . The left external carotid artery measures 92.9 cm/s peak systolic. The left vertebral artery is patent at 67.8 cm/s peak systolic with antegrade flow. US/US carotid doppler BI IMPRESSION: NO HEMODYNAMICALLY SIGNIFICANT STENOSIS OF EITHER EXTRACRANIAL INTERNAL CAROTID ARTERY. BOTH VERTEBRAL ARTERIES ARE PATENT WITH ANTEGRADE FLOW. Impression dictated by: Milton Wei M.D.12/02/2021 4:20 PM Dictation Location: [address] [place] [address] Tech: [facility] Transcribed By: DIANA 12/02/21 1620 Dictated By: Milton Wei MD 12/02/21 1619 Signed By: 12/02/21 1620 [facility] ECHOCARDIO M/2D COMPLETEon 0 11-27-2021 ECHOCARDIO M/2D COMPLETE Patient: ZENA LOPEZ Exam Date: 11/27/2021 : 1960 Gender:M Ordering : PK LANDON Admission #: [id number] Family : Order #: [id number] CLICK HERE TO VIEW EXAM ECHOCARDIOGRAM REPORT PROCEDURE: CARDIO PULMONARY ECHOCARDIO M/2D COMP INDICATIONS: Dyspnea on exertion COMPARISON: None. DESCRIPTION: COMPLETE ECHOCARDIOGRAM Real-time transthoracic echocardiography with 2D, M-mode, spectral and color flow Doppler performed. QUALITY: Technical quality was good. BSA 1.98 LEFT VENTRICLE: Normal chamber size. Thickened septal wall. Global left ventricular systolic function is moderately decreased. Calculated left ventricular ejection fraction is 39% LV EF: Moderately reduced left ventricular ejection fraction, (35-40%). DIASTOLIC: Diastolic function is indeterminate. ATRIAL SEPTUM: LEFT ATRIUM: Mild dilatation. RIGHT ATRIUM: Normal chamber size. RIGHT VENTRICLE: Normal chamber size. Normal right ventricular systolic function. TRICUSPID VALVE: Normal mobility and thickness. No stenosis with mild regurgitation. No evidence of pulmonary hypertension. RVSP 30 mmHg MITRAL VALVE: Normal mobility and thickness. No mitral valve prolapse. No evidence of mitral valve stenosis. There is no mitral annular calcification. Mild to moderate mitral regurgitation. AORTIC VALVE: Normal trileaflet appearance. No visible sclerosis. Normal leaflet mobility. No evidence of aortic valve stenosis. No aortic regurgitation. AORTIC ROOT: Mildly dilated. PULMONIC VALVE: Normal thickness and mobility. No stenosis. No regurgitation. PERICARDIUM: No evidence of pericardial effusion. IVC: Collapses with inspirations. Normal size PLEURA: CONCLUSION: 1. Left ventricular systolic function is moderately reduced. LV ejection fraction is 35 to 40%. 2. Normal right ventricular systolic function. 3. Mild to moderate mitral regurgitation. 4. Mild tricuspid regurgitation. 5. Normal right-sided pressures. 6. No pericardial effusion. Adult Echocardiography Procedure Report Left Ventricle LVEDD (3.7 - 5.6 cm): 5.69 cm LVESD (2.2 - 4.0 cm): 4.85 cm LVIVS thickness (0.6 - 1.2 cm): 1.52 cm LVPW thickness (0.5 - 1.0 cm): 1.25 cm e': 6.69 cm/s E - e': 10 LVOT Area (cm2): 4.15 cm2 LVOT Diameter 2.30 cm Left Ventricular Ejection Fraction: 35-40 % Left Atrium LA Volume Index (2D A2C): 31.80 ml/m2 Left Atrium Systolic Dimension: 3.70 cm Left Atrium Systolic Area(A2C): 19.80 cm2 Left Atrium Systolic Area(A4C): 15.10 cm2 Left Atrium Systolic Volume(A2C): 72120 mm3 Left Atrium Systolic Volume(A4C): 97796 mm3 Mitral Valve MV E to A Ratio: 0.80 Deceleration Borden: 4530 mm/s2 Mitral Valve A-Wave Peak Velocity: 88.80 cm/s Mitral Valve E-Wave Peak Velocity: 66.60 cm/s Right Ventricle RV Internal Diastolic Dimension: 3.12 cm Aorta AO Root Diam: 3.80 cm Aortic Valve AoV Area (Peak Emir): 2.19 cm2 Aortic Valve Cusp Separation: 2.00 cm Peak Velocity(Antegrade Flow): 118.00 cm/s Peak Gradient(Antegrade Flow): 6 mm[Hg] Tricuspid Valve Peak Velocity (Regurgitant Flow): 195.00 cm/s Pulmonic Valve Peak Velocity: 85.50 cm/s Peak Gradient: 3 mm[Hg] Right Atrium Dictated by: Carleen Hector M.D. on 11/30/2021 at 10:30 Approved by: Carleen Hector M.D. on 11/30/2021 at 10:[address] [facility] STRESS/REST MULTIon 10-26 [place] STRESS/REST MULTI Patient: ZENA LOPEZ Exam Date: 10/26/2021 : 1960 Gender:M Ordering : DR MEL BANSAL . Admission #: [id number] Family : Order #: [id number] CLICK HERE TO VIEW EXAM RADIOLOGY REPORT PROCEDURE: RADIONUCLIDE IMAGING STRESS/REST MULTI COMPARISON: None. INDICATIONS: Chest pain, dizziness TECHNIQUE: Exam Description: Stress/Rest two day protocol gated SPECT Rest Imagin.4 mCi Tc-99m Cardiolite IV on 10/26/2021 Stress Imaging 25.1 mCi Tc-99m Cardiolite IV on 11/09/2021 Exercise Protocol: 0.4 mg Lexiscan given IV Heart Rate (bpm): Rest: 82 Max: 109 PMHR: 69 Blood Pressure: Rest: 100/66 Max: 136/80 Symptoms: none Rest and peak stress ECG findings were normal and the exercise portion of the study was normal per attending physician Dr. Bansal . For more details please see separate cardiac stress test report. FINDINGS: QUALITY OF STUDY: Good. PERFUSION DEFECT: LOCATION: Basal inferior. Mid-inferior. Apical inferior. Adams. SIZE: Medium (3-4 segments). SEVERITY: Moderate. TYPE: Persistent. WALL MOTION: Mild hypokinesis: LV SIZE: Enlarged; EDV 159 mL. TID / TCD: None; 1.0 LVEF: Abnormal. Calculated EF 47%. SUMMARY: Myocardial perfusion imaging study has ABNORMAL findings. CONCLUSION: 1. Moderate-sized transmural defect in the inferior wall, RCA distribution. 2. No reversible ischemia 3. Dilated left ventricle, EDV 159 milliliters 4. Low left ventricular ejection fraction of 47% 5. Normal exercise test Dictated by: Armando Resendiz MD on 11/09/2021 at 11:34 Approved by: Armando Resendiz MD on 11/09/2021 at 11:40 Normal [facility] CBC AUTO DIFFon 10-12-2021 BASO # 0.0 103/ul Normal 0.0-0.1 [facility] Comment on above: Performed By: #### B MP #### [facility] [address] [place] [address] Dr. Richard Linares Basophils/100 WBC (Bld) 0.5 % Normal 0.2-2.0 [facility] Comment on above: Performed By: #### B MP #### [facility] [address] [place] [address] Dr. Richard Linares EO # 0.0 103/ul Normal 0.0-0.7 [facility] Comment on above: Performed By: #### B MP #### [facility] [address] [address] [address] Richard Linares Eosinophils/100 WBC (Bld) 0.0 % Critically low 0.9-7.0 [facility] Comment on above: Performed By: #### B MP #### [facility] [address] [address] [address] Richard Linares Erythrocyte distribution width (RBC) [Ratio] 12.8 % Normal 11.0-15.0 [facility] Comment on above: Performed By: #### B MP #### [facility] [address] [place] [address] Dr. Richard Linares Hematocrit (Bld) [Volume fraction] 41.8 % Critically low 42.0-54.0 [facility] Comment on above: Performed By: #### B MP #### [facility] [address] [address] [address] Richard Linares Hemoglobin (Bld) [Mass/Vol] 14.4 g/dL Normal 14.0-18.0 [facility] Comment on above: Performed By: #### B MP #### [facility] [address] [address] [address] Richard Linares IG # 0.01 10e3/ul Normal 0.00-0.03 [facility] Comment on above: Performed By: #### B MP #### [facility] [address] [address] [address] Richard Linares IG % 0.2 % Normal 0.0-0.5 [facility] Comment on above: Performed By: #### B MP #### [facility] [address] [address] [address] Richard Linares LYMPH # 0.9 103/ul Critically low 1.2-3.8 [facility] Comment on above: Performed By: #### B MP #### [facility] [address] [address] [address] Richard Linares Lymphocytes/100 WBC (Bld) 15.0 % Critically low 20.5-60.0 [facility] Comment on above: Performed By: #### B MP #### [facility] [address] [address] [address] Richard Linares MANUAL DIFF REQ NO Normal [facility] Comment on above: Performed By: #### B MP #### [facility] [address] [address] [address] Richard Linares MCH (RBC) [Entitic mass] 31.4 pg Normal 25.9-34.0 [facility] Comment on above: Performed By: #### B MP #### [facility] [address] [address] [address] Richard Linares MCHC (RBC) [Mass/Vol] 34.4 g/dL Normal 29.9-35.2 [facility] Comment on above: Performed By: #### B MP #### [facility] [address] [address] [address] Richard Linares MCV (RBC) [Entitic vol] 91.3 fL Normal 80.0-94.0 [facility] Comment on above: Performed By: #### B MP #### [facility] [address] [address] [address] Richard Linares MONO # 0.4 103/ul Normal 0.3-0.8 [facility] Comment on above: Performed By: #### B MP #### [facility] [address] [address] [address] Richard Linares Monocytes/100 WBC (Bld) 6.4 % Normal 1.7-12.0 [facility] Comment on above: Performed By: #### B MP #### [facility] [address] [address] [address] Richard Linares NEUT # 4.9 103/ul Normal 1.4-6.5 [facility] Comment on above: Performed By: #### B MP #### [facility] [address] [address] [address] Richard Linares Neutrophils/100 WBC (Bld) 77.9 % Critically high 43.0-75.0 [facility] Comment on above: Performed By: #### B MP #### [facility] [address] [address] [address] Richard Linares Platelet mean volume (Bld) [Entitic vol] 9.9 fL Normal 9.5-13.5 [facility] Comment on above: Performed By: #### B MP #### [facility] [address] [address] [address] Richard Linares PLT 208 103/ul Normal 150-450 [facility] Comment on above: Performed By: #### B MP #### [facility] [address] [address] [address] Richard Linares RBC 4.58 106/ul Critically low 4.70-6.10 [facility] Comment on above: Performed By: #### B MP #### [facility] [address] [place] [address] Dr. Richard Linares WBC 6.3 103/ul Normal 4.0-11.0 [facility] Comment on above: Performed By: #### B KORI #### [facility] [address] [place] [address] Dr. Richard Linares Covid-19 PCR ([facility])on SARS-CoV-2 (COVID-19) RNA MOLLY+probe Ql (Unsp spec) Not detected Normal NOT DETECTED [facility] [facility] Comment on above: Result Comment: This test is not yet approved or cleared by the [place] FDA. When there are no FDA-approved or cleared tests available, and other criteria are met, FDA can make tests available under an emergency access mechanism called an Emergency Use Authorization (EUA). The EUA for this test is supported by the Clinical Documentation Consultant of Health and Human Service's (HHS's) declaration that circumstances exist to justify the emergency use of in vitro diagnostics for the detection and/or diagnosis of the virus that causes COVID-19. This EUA will remain in effect (meaning this test can be used) for the duration of the COVID-19 declaration justifying emergency of IVDs, unless it is terminated or revoked by FDA (after which the test may no longer be used). When diagnostic testing is negative, the possibility of a false negative should be considered in the context of a patient's recent exposures and the presence of clinical signs and symptoms consistent with SARS-CoV-2. Performed By: #### C VDTBH #### [facility] [address] [place] [address] Dr. Richard Linares PROF 14(COMP METB)on 022 Albumin [Mass/Vol] 3.6 g/dL Normal 3.5-5.0 [facility] Comment on above: Performed By: #### C LAXMI SHEIKHTROPN #### [facility] [address] [place] [address] Dr. Richard Linares Albumin/Globulin [Mass ratio] 1.3 {ratio} Normal [facility] Comment on above: Performed By: #### C LAXMI SHEIKHTROPN #### [facility] [address] [address] [address] Richard Linares ALP [Catalytic activity/Vol] 65 U/L Normal 38-126 [facility] Comment on above: Performed By: #### C MP, HSTROPN #### [facility] [address] [address] [address] Richard Linares ALT [Catalytic activity/Vol] 12 U/L Critically low 21-72 [facility] Comment on above: Performed By: #### C MP, HSTROPN #### [facility] [address] [place] [address] Dr. Richard Linares Anion gap [Moles/Vol] 10.1 mmol/L Normal [facility] Comment on above: Performed By: #### C MP, HSTROPN #### [facility] [address] [place] [address] Dr. Richard Linares AST [Catalytic activity/Vol] 8 U/L Critically low 17-59 [facility] Comment on above: Performed By: #### C MP, HSTROPN #### [facility] [address] [address] [address] Richard Linares Bilirubin [Mass/Vol] 0.6 mg/dL Normal 0.2-1.3 [facility] Comment on above: Performed By: #### C MP, HSTROPN #### [facility] [address] [place] [address] Dr. Richard Linares Calcium [Mass/Vol] 8.3 mg/dL Critically low 8.4-10.2 [facility] Comment on above: Performed By: #### C MP, HSTROPN #### [facility] [address] [place] [address] Dr. Richard Linares Chloride [Moles/Vol] 106 mmol/L Normal 98-107 [facility] Comment on above: Performed By: #### C MP, HSTROPN #### [facility] [address] [place] [address] Dr. Richard Linares CO2 [Moles/Vol] 29.4 mmol/L Normal 22.0-30.0 [facility] Comment on above: Performed By: #### C MP, HSTROPN #### [facility] [address] [address] [address] Richard Linares Creatinine [Mass/Vol] 0.73 mg/dL Normal 0.66-1.25 [facility] Comment on above: Performed By: #### C MP, HSTROPN #### [facility] [address] [address] [address] Richard Linares EGFR-AF VIETNAMESE >60 Normal >=60 [facility] Comment on above: Performed By: #### C MP, HSTROPN #### [facility] [address] [address] [address] Richard Linares EGFR-NON AF VIETNAMESE >60 Normal >=60 [facility] Comment on above: Performed By: #### C MP, HSTROPN #### [facility] [address] [address] [address] Richard Linares Globulin (S) [Mass/Vol] 2.8 g/dL Normal [facility] Comment on above: Performed By: #### C MP, HSTROPN #### [facility] [address] [address] [address] Richard Linares Glucose [Mass/Vol] 133 mg/dL Critically high 74-106 T [facility] Comment on above: Performed By: #### C MP, HSTROPN #### [facility] [address] [address] [address] Richard Linares Potassium [Moles/Vol] 3.5 mmol/L Normal 3.4-5.0 [facility] Comment on above: Performed By: #### C MP, HSTROPN #### [facility] [address] [address] [address] Richard Linares Protein [Mass/Vol] 6.4 g/dL Normal 6.1-8.2 [facility] Comment on above: Performed By: #### C MP, HSTROPN #### [facility] [address] [address] [address] Richard Linares Sodium [Moles/Vol] 142 mmol/L Normal 137-145 [facility] Comment on above: Performed By: #### C MP, HSTROPN #### [facility] [address] [place] [address] Dr. Richard Linares Urea nitrogen [Mass/Vol] 9.0 mg/dL Normal 9.0-20.0 [facility] Comment on above: Performed By: #### C KORI, HSTROPN #### [facility] [address] [place] [address] Dr. Richard Linares Urea nitrogen/Creatinine [Mass ratio] 12.3 mg/mg Normal [facility] Comment on above: Performed By: #### C KORI, HSTROPN #### [facility] [address] [place] [address] Dr. Richard Linares TROPONIN, HIGH SENSITIVITYon 10-12-2021 HSTROP 6.9 pg/mL Normal 4.0-42.2 [facility] Comment on above: Result Comment: CUT- OFF POINTS HAVE BEEN ESTABLISHED BASED ON THE FOURTH UNIVERSAL DEFINITIONS OF MYOCARDIAL INFARCTION. THE UPPER REFERENCE LIMIT (URL) OF TROPONIN, DEFINED THE 99TH PERCENTILE OF cTnI DISTRIBUTION IN A REFERENCE POPULATION, HAS BEEN CONFIRMED THE DECISION THRESHOLD FOR [place] DIAGNOSIS. Performed By: #### H STROPN #### [facility] [address] [place] [address] Dr. Richard Linares HSTROP 6.0 pg/mL Normal 4.0-42.2 [facility] Comment on above: Result Comment: CUT- OFF POINTS HAVE BEEN ESTABLISHED BASED ON THE FOURTH UNIVERSAL DEFINITIONS OF MYOCARDIAL INFARCTION. THE UPPER REFERENCE LIMIT (URL) OF TROPONIN, DEFINED THE 99TH PERCENTILE OF cTnI DISTRIBUTION IN A REFERENCE POPULATION, HAS BEEN CONFIRMED THE DECISION THRESHOLD FOR [place] DIAGNOSIS. Performed By: #### C MP, HSTROPN #### [facility] [address] [place] [address] Dr. Richard Linares XR CHEST 1 Von 10-12-2021 XR CHEST 1 V EXAMINATION: XR CHES T 1 V HISTORY: Chest pressure and dizziness for 4 days COMPARISON: 08/10/2021 TECHNIQUE: Portable chest FINDINGS: The lung parenchyma is free of consolidation or infiltrate. No pneumothorax or pleural effusion. The cardiac, mediastinal and hilar contours are normal. The visualized osseous structures exhibit no gross acute abnormality. Degenerative changes of the right acromioclavicular joint IMPRESSION: No acute cardiopulmonary abnormality. Electronically authenticated by: ARMANDO ZULETA Date: 2021-10-12 19:22 Normal [facility] Vital Signs Date Time Vital Sign Value Performing Clinician Brennan hardwick 05-13-2022 10:53-0400 Body height 182.88 cm Mel Bansal Work Phone: YR-Nkkgdgigue-Thyq ia 101 Work Phone: 05-13-2022 10:53-0400 Body mass index (BMI) [Ratio] 22.92 kg/m2 Mel Bansal Work Phone: TP-Lisnueygkc-Bvzo ia 101 Work Phone: 05-13-2022 10:53-0400 Body surface area Derived from formula 1.98 m2 Mel Bansal Work Phone: TN-Rxmjarcffd-Onng ia 101 Work Phone: 05-13-2022 10:53-0400 Body temperature 97.1 [degF] Mel Banasl Work Phone: WJ-Jukrsfsvvy-Uhgy ia 101 Work Phone: 05-13-2022 10:53-0400 Body weight 76.66 kg Mel Bansal Work Phone: YP-Tlfytpcaaj-Pkeg ia 101 Work Phone: 05-13-2022 10:53-0400 Diastolic blood pressure 69 mm[Hg] Mel Bansal Work Phone: FQ-Zvvixxpulf-Idcn ia 101 Work Phone: 05-13-2022 10:53-0400 Heart rate 109 /min Mel Bansal Work Phone: XU-Phhgzoktpl-Xwxi ia 101 Work Phone: 05-13-2022 10:53-0400 Respiratory rate 16 /min Mel Bansal Work Phone: KP-Iowtrybsxu-Qfgj ia 101 Work Phone: 05-13-2022 10:53-0400 SaO2% (BldA) [Mass fraction] 94 % Mel Bansal Work Phone: YX-Xrlhzbyfbq-Qzfi ia 101 Work Phone: 05-13-2022 10:53-0400 Systolic blood pressure 107 mm[Hg] Mel Bansal Work Phone: BH-Ygtgiiqndy-Aarf ia 101 Work Phone: Encounters Encounter Date Encounter Type Care Provider Facility Start: 11-21-2023 End: 11-21-2023 ambulatory [facility] Start: 07-12-2023 End: 07-13-2023 ambulatory [facility] Start: 07-12-2023 End: 07-12-2023 Phys/qhp telephone evaluation 11-20 min [facility] Work Phone: [facility] Comment on above: Cigarette nicotine d ependence with nicotine-induced disorder (Primary Dx); Chronic respiratory failure with hypoxia, on home O2 therapy (CMS/HCC); Centrilobular emphysema (CMS/HCC); Lung nodule Start: 04-21-2023 End: 04-21-2023 ambulatory [facility] Start: 04-14-2023 Patient encounter procedure Mel Bansal Work Phone: [facility] Work Phone: Start: 04-14-2023 Phys/qhp telephone evaluation 11-20 min Mel Bansal Work Phone: [facility] [address] Work Phone: Start: 04-14-[address] Mel Grubbs acility:[facility] Start: 02-23-2023 ambulatory Facility: [facility] Start: 09-22-2022 End: 09-23-[address] MEL BANSAL Facility:[facility]1 Start: 06-28-2022 End: 06-28-2022 ambulatory MD Dex Mas Facility:[id number] Start: 06-09-2022 End: 06-10-[address] MEL BANSAL Facility:[facility]1 Start: 05-21-2022 End: 05-22-[address] MEL BANSAL Facility:[facility]1 Start: 05-13-[address] Celso Ibarra Facility:[id number] Start: 05-13-2022 Office outpatient ne w 45 minutes Mel Bansal Work Phone: [facility] Work Phone: Start: 05-13-2022 Patient encounter procedure Mel Bansal Work Phone: AF-Llanvbwkzq-Hxjjqd 101 Work Phone: Start: 04-13-2022 End: 04-14-[address] MEL BANSAL Facility:[facility]1 Start: 04-10-2022 End: 04-11-[address] MEL BANSAL Facility:H1 Start: 03-24-2022 End: 03-25-2022 ambulatory PK LANDON Facility:H1 Start: 02-19-2022 End: 02-20-2022 ambulatory PK LANDON Facility:H1 Start: 12-21-2021 End: 12-22-2021 ambulatory PK LANDON Facility:[facility] Start: 12-18-2021 End: 12-19-2021 ambulatory PK LANDON Facility:H1 Start: 11-27-2021 End: 11-28-2021 ambulatory PK LANDON Facility:H1 Start: 11-09-2021 End: 11-10-[address] MEL BANSAL Facility:H1 Start: 10-26-2021 End: 10-27-[address] MEL BANSAL Facility:H1 Start: 10-12-2021 End: 10-13-[address] MEL BANSAL Facility:H1 Procedures Date Procedure Procedure Detail Performing Clinician Arthroscopy of knee Mel wallace Work Phone: Comment on above: Right; Excision of cyst Mel restrepo Work Phone: Comment on above: R knee; Plan of Treatment Date Care Activity Detail Author Start: 07-03-2024 End: 07-03-2024 Telemedicine consultation with patient 07/03/2024 12:00 PM EDT Telemedicine [facility] [address] [place] [id number] [place] [address] [place] [address] [facility] Start: 05-06-2023 Influenza vaccination Influenza Vaccine (#1) [facility] Start: 2010 Zoster Vaccines (1 of 2) Zoster Vaccines (1 of 2) [facility] Start: 1982 DTaP/Tdap/Td Vaccines (1 - Tdap) DTaP/Tdap/Td Vaccines (1 - Tdap) [facility] Start: 11-08-1979 Hepatitis A Vaccines (1 of 2 - Risk 2-dose series) Hepatitis A Vaccines (1 of 2 - Risk 2-dose series) [facility] Start: 1978 Diabetes mellitus screening Diabetes Screening [facility] Start: 1978 Hepatitis C screening Hepatitis C Screening [facility] Start: 1966 Pneumococcal Vaccine: Pediatrics (0 to 5 Years) and At-Risk Patients (6 to 64 Years) (1 - PCV) Pneumococcal Vaccine: Pediatrics (0 to 5 Years) and At-Risk Patients (6 to 64 Years) (1 - PCV) [facility] Start: 1961 MMR Vaccines (1 of 1 - Standard series) MMR Vaccines (1 of 1 - Standard series) [facility] Start: 05-10-1961 COVID-19 Vaccine (#1) COVID-19 Vaccine (#1) [facility] Start: 1960 Creatinine measurement Creatinine Level [facility] Start: 1960 Echocardiography Echocardiogram [facility] Start: 1960 HIV screening HIV Screening [facility] Start: 1960 Lipid panel Lipid Panel [facility] Start: 1960 Potassium measurement Potassium Level [facility] Start: 1960 Screening for malignant neoplasm of colon [facility] Start: 1960 Thyroid stimulating hormone measurement TSH Level [facility] Start: 1960 Yearly Adult Physical Yearly Adult Physical [facility] Payers Date Payer Category Payer Unknown 2016 Unknown [id number] 1960 Unknown [id number] 2.16.8 [id number] 1960 Unknown [id number] 2.16.8 [id number] 1960 Unknown [id number] 2.16.8 [id number] 1960 Unknown [id number] 2.16.84 [id number] 1960 Unknown [id number] 2.16.84 [id number] 1960 Unknown [id number] 2.16.84 0.1.289663.3.579.2.593 1960 Unknown [id number] 2.16.84 0.1.403465.3.579.2.593 1960 Unknown [id number] 2.16.84 [id number] 1960 Unknown [id number] 2.16.84 0.1.369300.3.579.2.593 1960 Unknown [id number] 2.16.84 0.1.818494.3.579.2.593 1960 Unknown [id number] 2.16.84 0.1.411998.3.579.2.593 1960 Unknown [id number] 2.16.84 0.1.348901.3.579.2.593 1960 Unknown [id number] 2.16.84 0.1.039013.3.579.2.593 1960 Unknown [id number] 2.16.84 0.1.334357.3.579.2.593 1960 Unknown [id number] 2.16.84 0.1.688979.3.579.2.593 1960 Unknown [id number] 2.16.84 0.1.428539.3.579.2.593 1960 Unknown [id number] 2.16.84 0.1.890205.3.579.2.593 1960 Unknown [id number] 2.16. [id number] 1960 Unknown [id number] 2.16.8 [id number] 1959 Self-pay [id number] 1959 Unknown [id number] Social History Date Type Detail Facility Start: 07-07-2023 Current smoker Current smoker [facility] Work Phone: Comment on above: 2 ppd X 44 yrs, curr ently 4 cig day(2021); Start: 07-07-2023 [facility] daily [facility] Work Phone: History of tobacco use Cigarette Smoker [facility] Work Phone: Start: 07-07-2023 Tobacco use panel [facility] Work Phone: Start: 1960 Sex Assigned At Not on file [facility] Work Phone: Start: 07-02-2023 End: 07-12-2023 Exposure to SARS-CoV-2 (event) Not sure [facility] Progress note 11-21-2023 Note Date & Type Note Facility 11-21-2023 Note DC Cardiology - [facility] Subjective Zena Lopez is a 63 y.o. year old male patient being seen for 6 mo follow up chronic systolic heart failure and CAD. Had some tests for pulmonary in the fall. Denies chest pain. Says his WHITE remains unchanged. Still gets dizzy spells with near syncope. Patient Active Problem List Diagnosis Chronic systolic congestive heart failure (CMS/HCC) Coronary artery disease involving anvik coronary artery of anvik heart without angina pectoris Impotence Chronic obstructive lung disease (CMS/HCC) Hypothyroidism Induration penis plastica Right inguinal hernia Rhinitis, allergic Lung nodule Cigarette nicotine dependence with nicotine-induced disorder Chronic respiratory failure with hypoxia, on home O2 therapy (CMS/HCC) Cholelithiasis without cholecystitis Centrilobular emphysema (CMS/HCC) Family History Problem Relation Name Age of Onset Cancer Mother Social History Tobacco Use Smoking status: Every Day Packs/day: .25 Types: Cigarettes HPI Zena is seen in follow-up. He is a 63-year-old man with nonischemic cardiomyopathy and systolic heart failure diagnosed in December 2021, mild coronary artery disease by cardiac catheterization on 12/21/2021. He has COPD and follows with pulmonary. at visit of 10/25/2022 and due to low blood pressure I stopped Jardiance given improvement in ejection fraction. He has no angina. He has shortness of breath on exertion due to his COPD that has been stable. He still does have significant dizziness and lightheadedness. This happens when he stands up. His blood pressure has been borderline low. Review of Systems Cardiovascular: Positive for dyspnea on exertion, near-syncope and palpitations ( sometimes ). Neurological: Positive for dizziness and light-headedness. All other systems reviewed and are negative. Objective Visit Vitals BP 99/67 (BP Location: Left arm, Patient Position: Standing) Pulse 88 Ht 1.829 m (6') Wt 77.6 kg (171 lb) SpO2 95% BMI 23.19 kg/m??? Smoking Status Every Day BSA 1.99 m??? Physical Exam Constitutional: Appearance: He is well-developed. He is not ill-appearing. HENT: Head: Normocephalic and atraumatic. Nose: Nose normal. Eyes: General: No scleral icterus. Pupils: Pupils are equal, round, and reactive to light. Neck: Thyroid: No thyromegaly. Vascular: No JVD. Cardiovascular: Rate and Rhythm: Normal rate and regular rhythm. Pulses: Radial pulses are 2+ on the right side and 2+ on the left side. Heart sounds: Normal heart sounds. No murmur heard. No friction rub. No gallop. Pulmonary: Effort: Pulmonary effort is normal. No respiratory distress. Breath sounds: Normal breath sounds. No wheezing or rales. Chest: Chest wall: No tenderness. Abdominal: General: Bowel sounds are normal. There is no distension. Palpations: Abdomen is soft. Tenderness: There is no abdominal tenderness. Musculoskeletal: General: No swelling. Cervical back: Neck supple. Skin: General: Skin is warm and dry. Neurological: General: No focal deficit present. Mental Status: He is alert and oriented to person, place, and time. Psychiatric: Mood and Affect: Mood normal. Behavior: Behavior is cooperative. Judgment: Judgment normal. Allergies No Known Allergies Medications Current Outpatient Medications: albuterol 90 mcg/actuation inhaler, INHALE 2 PUFFS BY MOUTH EVERY 4 HOURS NEEDED FOR SHORTNESS OF BREATH, Disp: , Rfl: aspirin 81 mg EC tablet, Take 1 tablet every day by oral route., Disp: , Rfl: atorvastatin (Lipitor) 40 mg tablet, TAKE 1 TABLET BY MOUTH EVERY DAY, Disp: 90 tablet, Rfl: 3 meclizine (Antivert) 25 mg tablet, TAKE 1 TABLET BY MOUTH EVERY 6 HOURS NEEDED FOR DIZZINESS, Disp: , Rfl: metoprolol succinate XL (Toprol-XL) 25 mg 24 hr tablet, TAKE 1/2 TABLET BY MOUTH EVERY DAY, Disp: 45 tablet, Rfl: 3 mometasone-formoterol (Dulera 200) 200-5 mcg/actuation inhaler, INHALE 2 PUFFS BY MOUTH TWICE A DAY *RINSE MOUTH AFTER USE*, Disp: , Rfl: tiotropium (Spiriva) 18 mcg inhalation capsule, Place 1 capsule into inhaler and inhale in the morning., Disp: , Rfl: sacubitril-valsartan (Entresto) 24-26 mg tablet, Take 0.5 tablets by mouth in the morning and at bedtime., Disp: , Rfl: Recent Labs No visits with results within 6 Month(s) from this visit. Latest known visit with results is: [facility] Encounter on 12/21/2021 Component Date Value Ventricular Rate 12/21/2021 93 Atrial Rate 12/21/2021 93 MD Interval 12/21/2021 140 QRS DURATION 12/21/2021 90 QT Interval 12/21/2021 330 QTC CALCULATION(BAZETT) 12/21/2021 410 P [place] 12/21/2021 72 R-[place] 12/21/2021 76 T Wave [place] 12/21/2021 57 Diagnosis 12/21/2021 Value:Normal sinus rhythm Normal ECG No previous ECGs available Confirmed by Randolph Chandra ([id number]) on 12/22/2021 8:48:12 AM Blood testing 04/21/2023: Potassium 4.4, BUN 11, creatinine 0.85, LFTs norm (more content not included)... [facility] History of Present illness Narrative 07-12-2023 Celso Ibarra, - 07/12/2023 1:30 PM EST Note Date & Type Note Facility 07-12-2023 History of Present illness Narrative C/C: Follow up visit History Of Present Illness Zena Lopez is a 62 y.o. male presenting for follow up with surveillance imaging for lung nodule. He has a left upper lobe lung nodule (non-diagnostic biopsy in Jun 2022) who presents with surveillance imaging (at OSH). Stable 1.3 x 0.5cm left upper lobe nodule. Patient denies any significant change in his COPD recently (followed by Dr. Nuñez), still using home O2 intermittently. He reports no worsening cough or worsening dyspnea.Denies recent hospitalizations. By way of review: patient was referred to me in fall; he has a h/o moderate to severe COPD followed by Dr. Nuñez, Pulmonology. Patient was noted on recent imaging to have bilateral upper lobe nodules. Left upper lobe nodule was 1.3 x 0.6 cm in size, right upper lobe nodule with 0.9 x 0.7 cm in size. These were reportedly new compared to March 2021. The left upper lobe nodule is PET avid with SUV of 2.8, right upper lobe nodule was not PET avid. This was discussed with him by Dr. Oliver's office and he was referred to me. Patient is on 3 inhalers for his COPD. He was hospitalized in 2019 with a severe respiratory infection requiring 2-week hospital stay. Patient had been worked up for a 'weak heart' with echo that showed EF of 53%, RVSP 22. And reported negative cardiac catheterization. There is some discussion of perhaps a cardiomyopathy. No h/o [place]. Patient had a prior drinking history many years ago. Current smoker, several cigarettes per day down from 2 packs/day. Past Medical History He has a past medical history of CAD (coronary artery disease), Cholelithiasis, COPD (chronic obstructive pulmonary disease) (CMS/[facility]), Emphysema of lung (CMS/[facility]), Heart failure, chronic systolic (CMS/HCC), Lung nodule, and On home O2. Social History He reports that he has been smoking cigarettes. He has been smoking an average of .25 packs per day. He does not have any smokeless tobacco history on file. No history on file for alcohol use and drug use. Medications Current Outpatient Medications: albuterol (ProAir HFA) 90 mcg/actuation inhaler, Inhale 2 puffs every 4 hours if needed., Disp: , Rfl: ascorbic acid (Vitamin C) 1,000 mg tablet, Take 1 tablet (1,000 mg) by mouth once daily., Disp: , Rfl: aspirin 81 mg EC tablet, Take 1 tablet (81 mg) by mouth once daily., Disp: , Rfl: atorvastatin (Lipitor) 40 mg tablet, Take 1 tablet (40 mg) by mouth once daily., Disp: , Rfl: empagliflozin (Jardiance) 10 mg, Take 1 tablet (10 mg) by mouth once daily., Disp: , Rfl: ipratropium-albuteroL (Duo-Neb) 0.5-2.5 mg/3 mL nebulizer solution, Take 3 mL by nebulization every 4 hours if needed., Disp: , Rfl: meclizine (Antivert) 25 mg tablet, Take by mouth. TAKE DIRECTED., Disp: , Rfl: metoprolol succinate XL (Toprol-XL) 25 mg 24 hr tablet, Take 1 tablet (25 mg) by mouth once daily., Disp: , Rfl: mometasone-formoterol (Dulera) 200-5 mcg/actuation inhaler, Inhale 2 puffs 2 times a day., Disp: , Rfl: sacubitriL-valsartan (Entresto) 24-26 mg tablet, Take 1 tablet by mouth once daily., Disp: , Rfl: tiotropium (Spiriva Respimat) 2.5 mcg/actuation inhaler, Inhale 2 puffs once daily., Disp: , Rfl: Allergies Patient has no known allergies. Review of Systems: Review of Systems Constitutional: No fevers, chills, unexpected weight change HENT: No sore throat, congestion, or nasal drainage Eyes: No visual changes or eye itching Respiratory: see HPI. No cough, worsening dyspnea, wheezing Cardiac: No chest pain, palpitations, or lower extremity edema Gastrointestinal: No nausea, vomiting, diarrhea. No abdominal pain Genitourinary: No dysuria or hematuria Musculoskeletal: No back pain. No significant myalgias or arthralgias Neurologic: No headaches, dizziness, or seizures. Hematologic: No east bleeding or bruising. Psychiatric: No anxiety or depression. Physical Exam: Physical Exam There were no vitals taken for this visit. Virtual visit only Pulmonary: Effort: No conversational dyspnea Psychiatric: Mood and Affect: Mood normal. Relevant Results: Pathology: N/A Imagin06/22/2023 CT Chest from OS was personally reviewed Assessment/Plan Diagnoses and all orders for this visit: Cigarette nicotine dependence with nicotine-induced disorder Chronic respiratory failure with hypoxia, on home O2 therapy (CMS/HCC) Centrilobular emphysema (CMS/HCC) Lung nodule Zena Lopez is a 62 y.o. male with a significant history of COPD, moderate to severe, who presents with a lateral left upper lobe 1.[address] guided bx was non-diagnostic in June [address]. [address] from March and most recent from 06/22/23 this ANDRE lesion is stable. Stable RLL GGO as well D/w patient he can get CT chest in [address]. [address] Nuñez will order this and have it done at [place]. Celso Ibarra DO Thoracic & Esophageal Surgery documented in this encounter [facility] Work Phone: Progress note 04-21-2023 Note Date & Type Note Facility 04-21-2023 Note Cardiology Clinic No te Subjective Zena H John is a 62 y.o. year old male patient with non-obstructive coronary artery disease on angiography (12/21/21), NICM HFimpEF from 35-40% (12/01/2021) to 55% (03/24/2022), emphysema with chronic O2 requirements, and tobacco dependence seen in follow-up. Patient Active Problem List Diagnosis Chronic systolic congestive heart failure (CMS/HCC) Coronary artery disease involving anvik coronary artery of anvik heart without angina pectoris Impotence Chronic obstructive lung disease (CMS/HCC) Hypothyroidism Induration penis plastica Right inguinal hernia Family History Problem Relation Name Age of Onset Cancer Mother Social History Tobacco Use Smoking status: Every Day Packs/day: 0.25 Types: Cigarettes HPI He is a 61-year-old man with nonischemic cardiomyopathy and systolic heart failure diagnosed in December 2021, mild coronary artery disease by cardiac catheterization on 12/21/2021. He has COPD and follows with pulmonary. Update: 10/25/2022 He has no angina. He has shortness of breath on exertion due to his COPD that has been stable. He does have significant dizziness or lightheadedness to the extent that it scares him. This happens when he stands up. His blood pressure has been borderline low. Update: 04/21/2023 Jardiance was discontinued last OV due to hypotension with recovery of his LVEF Blood pressure willson improved Smoking about 6 cigarettes/day Uses 2L O2 PRN Denies chest pain, LE edema or worsening dyspneic symptoms Review of Systems Cardiovascular: Positive for dyspnea on exertion. Negative for chest pain, irregular heartbeat, leg swelling, near-syncope, orthopnea, palpitations, paroxysmal nocturnal dyspnea and syncope. Objective Visit Vitals BP 130/70 (BP Location: Left arm, Patient Position: Sitting, BP Cuff Size: Adult) Pulse 94 Resp 11 Ht 1.829 m (6') Wt 77.1 kg (170 lb) SpO2 93% BMI 23.06 kg/m??? Smoking Status Every Day BSA 1.98 m??? Physical Exam General: Awake, alert, NAD Neck: No elevated JVP. No carotid bruit Pulm: Breath sounds clear to ascultation bilaterally with no wheeze, crackles or rhonchi Cards: Regular rate and rhythm, S1, S2. No S3 or S4 gallop. Murmur: none Extr: Lower extremity edema: None. DP pulses:2+ Skin: warm, dry, well perfused Neuro: A&Ox3, No gross deficits Allergies No Known Allergies Medications Current Outpatient Medications: albuterol 90 mcg/actuation inhaler, INHALE 2 PUFFS BY MOUTH EVERY 4 HOURS NEEDED FOR SHORTNESS OF BREATH, Disp: , Rfl: aspirin 81 mg EC tablet, Take 1 tablet every day by oral route., Disp: , Rfl: atorvastatin (Lipitor) 40 mg tablet, TAKE 1 TABLET BY MOUTH EVERY DAY, Disp: 90 tablet, Rfl: 3 meclizine (Antivert) 25 mg tablet, TAKE 1 TABLET BY MOUTH EVERY 6 HOURS NEEDED FOR DIZZINESS, Disp: , Rfl: metoprolol succinate XL (Toprol-XL) 25 mg 24 hr tablet, TAKE 1/2 TABLET BY MOUTH EVERY DAY, Disp: 45 tablet, Rfl: 3 mometasone-formoterol (Dulera 200) 200-5 mcg/actuation inhaler, INHALE 2 PUFFS BY MOUTH TWICE A DAY *RINSE MOUTH AFTER USE*, Disp: , Rfl: sacubitriL-valsartan (Entresto) 24-26 mg tablet, Take 1 tablet by mouth in the morning and at bedtime., Disp: 60 tablet, Rfl: 11 tiotropium (Spiriva) 18 mcg inhalation capsule, Place 1 capsule into inhaler and inhale in the morning., Disp: , Rfl: Recent Labs labs- 02/19/22 BUN 11, CR 1.00- normal, K+ 4.5, BUN 11, CR 0.96, K+ 3.8, CBC normal labs from 10/12/2021 CBC normal, Renal function normal BUN 9 creatinine 0.73, Liver function normal, Potassium level 3.5, High sensitive troponins 6.0 and 6.9 normal Labs from 06/01/2021: Cholesterol 112, HDL 47, triglyceride 80, LDL 49 Blood testing 12/18/2021: CBC within normal limits, potassium 3.8, BUN 11, creatinine 0.96. Imaging and other tests Echocardiogram- 12/01/21 LVSF 35-40% Normal RV size and function Mild to mod MV regurg Mild TV regurg Normal rt sided pressures 12/21/21 CVL report HEMODYNAMICS: 1. RA 6. 2. RV 33/-5, 4. 3. PA 35/10, mean 26. 4. Pulmonary capillary wedge pressure 9. 5. AO 119/70, mean 91. 6. Cardiac output 4.52. 7. Cardiac index 2.24. 8. PA sat 67%. 9. AO sat 95%. SUMMARY OF THE FINDINGS: 1. Mild three-vessel coronary artery disease with calcifications noted in the distal left main, proximal and mid LAD, and proximal circumflex with mild atherosclerotic narrowing, but no occlusive lesions. 2. Normal filling pressures. 3. Mild pulmonary hypertension. 4. Mildly reduced cardiac output and cardiac index. RECOMMENDATIONS: 1. Medical therapy for systolic heart failure and nonischemic cardiomyopathy. 2. Medical therapy for mild coronary artery disease. Lexiscan stress test from 10/26/2021 EKG portion shows no ischemic EKG changes Abnormal myocardial perfusion noted Moderate-sized transmural defect in the inferior wall, RCA distribution No reversible ischemia Dilated LV (more content not included)... [facility] History of Present illness Narrative 06-05-2022 Note Date & Type Note Facility 06-05-2022 History of Present illness Narrative Mr. Lopez is a 61-year-old male with a left upper lobe lung nodule (non-diagnostic biopsy in Jun 2022) who presents with surveillance imaging (at OSH). Stable 1.3 x 0.5cm left upper lobe nodule.Patient denies any significant change in his COPD recently (followed by Dr. Nuñez), no worsening cough or worsening dyspnea.Denies recent hospitalizations.By way of review: patient was referred to me in fall of 2021; he has a h/o moderate to severe COPD followed by Dr. Nuñez, Pulmonology. Patient was noted on recent imaging to have bilateral upper lobe nodules. Left upper lobe nodule was 1.3 x 0.6 cm in size, right upper lobe nodule with 0.9 x 0.7 cm in size. These were reportedly new compared to March 2021. The left upper lobe nodule is PET avid with SUV of 2.8, right upper lobe nodule was not PET avid. This was discussed with him by Dr. Oliver's office and he was referred to me. Patient is on 3 inhalers for his COPD. He was hospitalized in 2019 with a severe respiratory infection requiring 2-week hospital stay.Patient had been worked up recently for a 'weak heart' with echo that showed EF of 53%, RVSP 22. And reported negative cardiac catheterization. There is some discussion of perhaps a cardiomyopathy. No h/o IL. Patient had a prior drinking history many years ago.Current smoker, several cigarettes per day down from 2 packs/day. [facility] [address] Work Phone: History of Present illness Narrative 03-05-2021 Note Date & Type Note Facility 03-05-2021 History of Present illness Narrative Mr. Lopez is a 61-year-old male with moderate to severe COPD followed by Dr. Nuñez, Pulmonology. Patient was noted on recent imaging to have bilateral upper lobe nodules. Left upper lobe nodule was 1.3 x 0.6 cm in size, right upper lobe nodule with 0.9 x 0.7 cm in size. These were reportedly new compared to March 2021. The left upper lobe nodule is PET avid with SUV of 2.8, right upper lobe nodule was not PET avid. This was discussed with him by Dr. Oliver's office and he was referred to me. Patient is on 3 inhalers for his COPD. Most recent PFTs are from 2019. FEV1 at that time is 58%, FVC 79%, DLCO 64%.Patient denies any significant change in his COPD recently, no worsening cough or worsening dyspnea. He was hospitalized in 2019 with a severe respiratory infection requiring 2-week hospital stay. Denies recent hospitalizations. Patient has additionally been worked up recently for a 'weak heart' with echo that showed EF of 53%, RVSP 22. And reported negative cardiac catheterization. There is some discussion of perhaps a cardiomyopathy. No h/o IL. Patient had a prior drinking history many years ago. Current smoker, several cigarettes per day down from 2 packs/day. [facility] Work Phone: Evaluation note Note Date & Type Note Facility Evaluation note Diagnosis Cigarette nicotine dependence with nicotine-induced disorder- Primary Chronic respiratory failure with hypoxia, on home O2 therapy (CMS/HCC) Centrilobular emphysema (CMS/HCC) Lung nodule Other diseases of lung, not elsewhere classified documented in this encounter [facility] Work Phone: Summary Purpose Family History No Family History Records FoundUnknown Family Member Name Dates Details Family history of malignant neoplasm: Mother(V16.9, Z80.9) Status:Active Family history of cardiac di sorder: Father(V17.49, Z82.49) Status:Active Unknown Family Member Name Dates Details Family history of malignant neoplasm: Mother(V16.9, Z80.9) Status:Active Family history of cardiac di sorder: Father(V17.49, Z82.49) Status:Active Unknown Family Member Name Dates Details Family history of malignant neoplasm: Mother(V16.9, Z80.9) Status:Active Family history of cardiac di sorder: Father(V17.49, Z82.49) Status:Active Unknown Family Member Name Dates Details Family history of cardiac di sorder: Father(V17.49, Z82.49) Status:Active Family history of malignant neoplasm: Mother(V16.9, Z80.9) Status:Active Advance Directives No Advanced Directives Records FoundNo Advanced Directives Records FoundNo Advanced Directives Records FoundNo Advanced Directives Records FoundNo Advanced Directives Records FoundNo Advanced Directives Records FoundNo Advanced Directives Records FoundNo Advanced Directives Records FoundNo Advanced Directives Records FoundNo Advanced Directives Records Found Chief Complaint Pt is here for a new pt office visitPt is here for a new pt office visitA telephone visit (audio only) between the patient (at the originating site) and the provider (at the distant site) was utilized to provide this telehealth service.* A telephone visit (audio only) between the patient (at the originating site) and the provider (at the distant site) was utilized to provide this telehealth service. * Virtual visit Additional Source Comments (unrecognized sect ion and content) No Status Records FoundNo Status Records FoundNo Status Records FoundNo Status Records FoundNo Status Records FoundNo Status Records FoundNo Status Records FoundNo Status Records FoundNo Status Records FoundNo Status Records Found INFORMATION SOURCE (unrecogn ized section and content) DATE CREATED AUTHOR 12/16/2021 [facility] DATE CREATED AUTHOR AUTHOR'S ORGANIZ ATION 12/28/2021 [facility] DATE CREATED AUTHOR AUTHOR'S ORGANIZ ATION 06/06/2022 [facility] DATE CREATED AUTHOR AUTHOR'S ORGANIZ ATION 07/02/2022 [facility] DATE CREATED AUTHOR AUTHOR'S ORGANIZ ATION 09/28/2022 [facility] DATE CREATED AUTHOR AUTHOR'S ORGANIZ ATION 02/26/2023 [facility] DATE CREATED AUTHOR AUTHOR'S ORGANIZ ATION 04/15/2023 [facility] DATE CREATED AUTHOR AUTHOR'S ORGANIZ ATION 05/04/2023 [employer] DATE CREATED AUTHOR AUTHOR'S ORGANIZ ATION 07/17/2023 [facility] DATE CREATED AUTHOR AUTHOR'S ORGANIZ ATION 11/22/2023 [facility] Care Teams (unrecognized sec tion and content) 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 This clinical summary was aggregated from multiple sources. Caution should be exercised in using it in the provision of clinical care. This summary normalizes information from multiple sources, and as a consequence, information in this document may materially change the coding, format and clinical context of patient data. In addition, data may be omitted in some cases. CLINICAL DECISIONS SHOULD BE BASED ON THE PRIMARY CLINICAL RECORDS. [facility] ARE [employer] [facility]. provides no warranty or guarantee of the accuracy or completeness of information in this document.
--- NOTE | 2024-03-11 06:21 | ED_ITS ---
HPI - Abdominal Pain General Chief Complaint: Abdominal Pain Stated Complaint: abd pain Time Seen by Provider: 03/11/24 06:16 Source: patient Mode of arrival: walk-in Limitations: no limitations History of Present Illness HPI narrative: 63-year-old male presents to the emergency department for abdominal pain. It is in the right upper quadrant. He has been having trouble for a few days but it got worse during the night, 3 to 4 hours ago. No trauma or fever. No nausea or vomiting. He was told years ago that he has something wrong with his gallbladder but he never had it looked at subsequently. Related Data Home Medications ?Medication ?Instructions ?Recorded ?Confirmed albuterol sulfate 90 mcg/actuation 2 inh inhalation Q4H PRN shortness 03/11/24 03/11/24 aerosol inhaler of breath or wheezing atorvastatin 40 mg tablet 40 mg PO DAILY 03/11/24 03/11/24 ipratropium 0.5 mg-albuterol 3 mg 3 ml inhalation Q6H 03/11/24 03/11/24 (2.5 mg base)/3 mL nebulization soln metoprolol succinate 25 mg 12.5 mg PO DAILY 03/11/24 03/11/24 tablet,extended release 24 hr mometasone-formoterol HFA 200 2 inh inhalation DAILY 03/11/24 03/11/24 mcg-5 mcg/actuation aerosol inhaler (Dulera) sacubitril 24 mg-valsartan 26 mg 0.5 tab PO BID 03/11/24 03/11/24 tablet (Entresto) tiotropium bromide 2.5 2 inh inhalation Q24H 03/11/24 03/11/24 mcg/actuation mist for inhalation (Spiriva Respimat) Allergies Allergy/AdvReac Type Severity Reaction Status Date / Time No Known Drug Allergies Allergy Verified 03/11/24 06:06 Review of Systems ROS Narrative A ten point review of systems is negative except as noted above. Exam Narrative Exam Narrative: Nurses note and vital signs reviewed and patient is not hypoxic. General: The patient appears well and in no apparent distress. Patient is resting comfortably on cart. Skin: Warm, dry, no pallor noted. There is no rash noted. Head: Normocephalic, atraumatic Eye: Normal conjunctiva, no drainage Ears, Nose, Mouth, and Throat: oral mucosa is moist. Nares patent. Cardiovascular: Regular Rate and Rhythm Respiratory: Patient is in no distress, no accessory muscle use, lungs are clear to auscultation, no wheezing, rales or rhonchi Back: non-tender GI: Tenderness present in the right upper quadrant. No mass or distention. No rebound or guarding or tenderness elsewhere. Musculoskeletal: The patient has no evidence of calf tenderness, no pitting edema, symmetrical pulses noted bilaterally Neurological: A&O, normal speech Psychiatric: Cooperative Constitutional Vital Signs, click to edit/add: Last Vital Signs Temp 97.7 F 03/11/24 06:06 Pulse 85 03/11/24 06:06 Resp 16 03/11/24 06:06 BP 131/70 03/11/24 06:06 Pulse Ox 97 03/11/24 06:06 O2 Del Method Room Air 03/11/24 06:06 Course Vital Signs Vital signs: Vital Signs Temperature 97.7 F 03/11/24 06:06 Pulse Rate 85 03/11/24 06:06 Respiratory Rate 16 03/11/24 06:06 Blood Pressure 131/70 03/11/24 06:06 Pulse Oximetry 97 03/11/24 06:06 Oxygen Delivery Method Room Air 03/11/24 06:06 Temperature 97.7 F 03/11/24 06:06 Pulse Rate 85 03/11/24 06:06 Respiratory Rate 16 03/11/24 06:06 Blood Pressure 131/70 03/11/24 06:06 Pulse Oximetry 97 03/11/24 06:06 Oxygen Delivery Method Room Air 03/11/24 06:06 MDM - Abdominal Pain [facility] Narrative Medical decision making narrative: Tests are ordered and the patient is signed out to Dr. Blood. Differential Diagnosis Differential diagnosis: Likely abdominal pain, calculus of kidney, constipation, gastroenteritis, pancreatitis and other (Biliary disease) Discharge Plan Discharge Chief Complaint: Abdominal Pain Clinical Impression: Abdominal pain Patient Disposition: Still a Patient Prescriptions / Home Meds: No Action albuterol sulfate 90 mcg/actuation HFA aerosol inhaler 2 inh INHALATION Q4H PRN (Reason: shortness of breath or wheezing) atorvastatin 40 mg tablet 40 mg PO DAILY ipratropium-albuterol 0.5 mg-3 mg(2.5 mg base)/3 mL solution for nebulization 3 ml INHALATION Q6H metoprolol succinate 25 mg tablet extended release 24 hr 12.5 mg PO DAILY Dulera 200-5 mcg/actuation HFA aerosol inhaler 2 inh INHALATION DAILY Entresto 24-26 mg tablet 0.5 tab PO BID Spiriva Respimat 2.5 mcg/actuation mist 2 inh INHALATION Q24H Print Language: Faroese Referrals: Physician,Non-Staff, MD [Primary Care Provider] - 1 week
--- NOTE | 2024-03-11 06:23 | CT_ITS ---
[address] [address] Patient Name: ZENA METZGER MRN: [id number] date: 1960 Sex: M Assigned Patient Location: ER Current Patient Location: Accession/Order Number: [id number] Exam Date: 03/11/2024 07:27 Report Date: 03/11/2024 08:48 At the request of: CLAUDIA YODER Procedure: CT abdomen pelvis w con EXAMINATION: CT abdomen pelvis w con INDICATION: Right upper quadrant pain. COMPARISON: PET/CT 04/10/2022. TECHNIQUE: Multiple contiguous axial CT images of the abdomen and pelvis were obtained after the administration of intravenous contrast. Sagittal and coronal reconstructions were performed. Dose reduction techniques were achieved by using: automated exposure control and/or adjustment of mA and /or kV according to patient size and/or use of iterative reconstruction technique. FINDINGS: LOWER CHEST: No significant abnormality. ABDOMEN AND PELVIS: LIVER: Tiny right hepatic lobe cysts. BILIARY SYSTEM: Urolithiasis. No biliary ductal dilatation. PANCREAS: Unremarkable. SPLEEN: Unremarkable. ADRENAL GLANDS: Normal. URINARY SYSTEM: Normal kidneys. No hydronephrosis or urolithiasis. Normal bladder. REPRODUCTIVE: Unremarkable. GASTROINTESTINAL TRACT: Normal caliber bowel. No bowel wall thickening or inflammation. Normal appendix. VESSELS: Nonaneurysmal abdominal aorta with moderate atherosclerotic calcifications. Patent abdominal vasculature. LYMPH NODES: No adenopathy. PERITONEUM: No ascites or pneumoperitoneum. MUSCULOSKELETAL: SOFT TISSUES: Tiny fat-containing umbilical hernia. BONES: No acute osseous abnormality or suspicious osseous lesion. PETERS: (series:image) CT/CT abdomen pelvis w con IMPRESSION: 1. No acute abdominal or pelvic process. 2. Cholelithiasis. Electronically authenticated by: BRAYAN RODRIGUEZ Date: 03/11/2024 08:48
[2024-03-11 06:30] VITALS: O2SAT 97
--- NOTE | 2024-03-11 06:30 | PC.NURSE ---
PT STATES HAS SEVERE COPD AND FEELS SOB AND WEARS 1.5-2L O2 AT HOME PRN AND REQUESTED 2 L O2. PT SPO2 97% RA BUT PLACED ON 2L FOR COMFORT
[2024-03-11 06:34] LABS: Basophils Absolute Auto 0.1 10^3/uL (0.0-0.1); Basophils Percent Auto 0.8 % (0.2-2.0); Hematocrit 41.5 % (42.0-54.0); Immature Granulocytes Abs Auto 0.02 10^3/uL (0.00-0.03); Immature Granulocytes Pct Auto 0.3 % (0.0-0.5); Lymphocytes Absolute Auto 1.6 10^3/uL (1.2-3.8); Lymphocytes Percent Auto 25.9 % (20.5-60.0); Mean Corpuscular HGB Conc 33.7 g/dL (29.9-35.2); Mean Corpuscular Hemoglobin 31.7 pg (25.9-34.0); Mean Corpuscular Volume 93.9 fL (80.0-94.0); Mean Platelet Volume 10.5 fL (9.5-13.5); Monocytes Absolute Auto 0.5 10^3/uL (0.3-0.8); Monocytes Percent Auto 8.6 % (1.7-12.0); Neutrophils Percent Auto 64.4 % (43.0-75.0); Platelet Count 182 10^3/uL (150-450); Red Blood Count 4.42 10^6/uL (4.70-6.10); Red Cell Distribution Width 12.6 % (11.0-15.0); White Blood Count 6.3 10^3/uL (4.0-11.0)
[2024-03-11] MEDS: MORPHINE SULFATE 4 MG/ML VIAL IV (06:40)
[2024-03-11 07:10] LABS: Alanine Aminotransferase 20 U/L (16-63); Albumin Globulin Ratio 1.4; Albumin Level 3.7 g/dL (3.4-5.0); Alkaline Phosphatase 75 U/L (46-116); Amylase 41 U/L (25-115); Anion Gap 7.7; Aspartate Amino Transferase 11 U/L (15-37); BUN Creatinine Ratio 17.5; Bilirubin Direct 0.2 mg/dL (0.0-0.2); Bilirubin Total 0.6 mg/dL (0.2-1.0); Calcium 8.4 mg/dL (8.5-10.1); Carbon Dioxide 33.8 mmol/L (21.0-32.0); Chloride 107 mmol/L (98-107); Estimated GFR (African America >60 (>=60); Estimated GFR (Non-African Ame >60 (>=60); Globulin 2.7 g/dL; Glucose 102 mg/dL (74-106); Potassium 3.5 mmol/L (3.5-5.1); Sodium 145 mmol/L (136-145); Total Protein 6.4 g/dL (6.4-8.2)
[2024-03-11] MEDS: KETOROLAC TROMETHAMINE 30 MG/ML VIAL 15 MG IVP (07:14)
[2024-03-11] MEDS: DICYCLOMINE HCL 20 MG/2 ML VIAL IM (07:15)
[2024-03-11 09:18] VITALS: PULSE 74; O2SAT 99
== END 2024-03-11 09:19 | disposition home or self-care (01) ==
PROVIDERS: Emergency Provider Emergency Medicine
DX: K29.70 Gastritis, unspecified, without bleeding (principal); R10.11 Right upper quadrant pain
CPT/HCPCS: 36415; 74177; 80048; 80076; 82150; 83690; 85025; 96372; 96374; 96375; 99284; J0500; J1885; J2270; Q9967

== ENCOUNTER 2024-04-25 13:59 | Outpatient (OUT) | payer OTHER, SELFPAY ==
--- NOTE | 2024-04-25 14:01 | US_ITS ---
The [address] [address] Patient Name: ZENA METZGER MRN: [id number] date: 1960 Sex: M Assigned Patient Location: US Current Patient Location: US Accession/Order Number: [id number] Exam Date: 04/25/2024 14:02 Report Date: 04/25/2024 16:27 At the request of: JAILYN CARNES Procedure: US right upper quadrant EXAMINATION: US right upper quadrant HISTORY: Right Upper Quadrant Pain COMPARISON: CT abdomen pelvis 03/11/2024 TECHNIQUE: Transabdominal evaluation of the right upper quadrant. FINDINGS: LIVER: Normal size and echotexture. Color Doppler demonstrates patent hepatic veins. PORTAL VEIN: Duplex Doppler demonstrates normal hepatopetal flow pattern with flow velocity averaging 29 cm/s. GALLBLADDER: Gallbladder is nearly completely filled with stones. No gallbladder wall thickening or free fluid. Negative sonographic Tena's sign. BILIARY: No abnormal dilation or stones. Common bile duct diameter is within normal limits. PANCREAS: No visible mass, abnormal atrophy, or duct dilation. KIDNEY: No hydronephrosis. No visible mass or stones. Size: 11.8 x 6.2 x 6.1 cm US/US right upper quadrant IMPRESSION: 1. Cholelithiasis without evidence of acute cholecystitis. Electronically authenticated by: ANDREW GIBBONS Date: 04/25/2024 16:27
== END 2024-04-25 14:00 | disposition home or self-care (01) ==
LOC: US 13:59
PROVIDERS: Visit Provider Nurse Practitioner
DX: R10.11 Right upper quadrant pain (principal); K80.20 Calculus of gallbladder without cholecystitis without obstruction
CPT/HCPCS: 76705

== ENCOUNTER 2024-05-23 12:58 | Outpatient (OUT) | payer OTHER, SELFPAY ==
[2024-05-23] MEDS: ALBUTEROL SULFATE 2.5 MG/3 ML VIAL NEB IH (13:59)
--- NOTE | 2024-05-23 13:59 | RT_ITS ---
[facility] Test Date: 2024-05-23 Pat Name: ZENA METZGER Department: Room: - Gender: Male Last Putter Away: Mando Delacruz RRT : 1960 Requested By: Shade Nuñez Order Number: [id number] Reading MD: Shade Nuñez Interpretive Statements Pulmonary function testing was completed according to ATS criteria. Findings were considered accurate and reproducible. Both pre- and post-bronchodilator values utilized for spirometry. Spirometry (based on pre-bronchodilator values): -FEV1/FVC: Reduced @ 49% -FEV1: Severely reduced @ 36% -FVC: Normal @ 55% -There is a positive bronchodilator response in FVC. Lung volumes by plethysmography (based on pre-bronchodilator values): -RV: Increased @ 218% -TLC: Normal @ 112% Diffusion capacity: -DLCO: Moderately-severe reduction @ 54% when corrected for Hb 15g/dL Flow-volume loop: -Severe obstructive pattern Impressions: Spirometry suggests severe obstruction with a positive bronchodilator response. An elevated RV suggests air trapping. There is a moderately-severe reduced diffusion capacity. Overall study would be consistent with asthma-COPD overlap or COPD with a bronchodilator response. Clinical correlation required. Electronically Signed On 05-29-2024 16:47:21 EDT by Shade Nuñez
== END 2024-05-23 12:59 | disposition home or self-care (01) ==
LOC: CARD 12:58
PROVIDERS: Visit Provider Internal Medicine
DX: J43.2 Centrilobular emphysema (principal)
CPT/HCPCS: 36415; 85018; 94060; 94726; 94729

== ENCOUNTER 2024-06-12 14:28 | Outpatient (OUT) | payer OTHER, SELFPAY ==
--- NOTE | 2024-06-12 14:44 | CT_ITS ---
[address] [address] Patient Name: ZENA METZGER MRN: [id number] date: 1960 Sex: M Assigned Patient Location: CT Current Patient Location: Accession/Order Number: [id number] Exam Date: 06/12/2024 14:39 Report Date: 06/13/2024 04:53 At the request of: TYSHAWN SALMON Procedure: CT lung screening low-dose EXAMINATION: CT lung screening low-dose HISTORY: Nicotine Dependence COMPARISON: CT chest 06/21/2023 TECHNIQUE: Axial, Coronal, and Sagittal images were created without the administration of IV contrast material. Dose reduction techniques were achieved by using automated exposure control and/or adjustment of mA and/or kV according to patient size and/or use of iterative reconstruction technique. FINDINGS: LUNGS: No suspicious pulmonary nodules. Mild emphysematous changes. No acute infiltrates. PLEURA: No mass, effusion, or pneumothorax. VASCULATURE: No abnormality. KM: No mass or pathologic adenopathy. MEDIASTINUM: No mass or pathologic adenopathy. CARDIAC: No enlargement, pericardial thickening, or pericardial effusion. Coronary Artery calcifications: Coronary calcifications are mild. AORTA: Developmental variant right side aortic arch. No aneurysm or dissection. CHEST WALL: No mass or axillary adenopathy BONES: No bone lesion or fracture. LIMITED ABDOMEN: No suspicious findings. Limited images of the upper abdomen. OTHER: Negative. CT/CT lung screening low-dose IMPRESSION: 1. Lung-RADS Category 1 Negative. No nodules and definitely benign nodules. Continue annual screening with LDCT in 12 months. Electronically authenticated by: ANDREW GIBBONS Date: 06/13/2024 04:53
--- OUTSIDE RECORDS SUMMARY | 2024-06-12 14:51 | XMS_ITS | CCD ---
Author Organization [facility] CliniSyny Care Team Providers Care Feeder Driver Name Role Phone DIPESHRODRÍGUEZSANIYA M Admitting Unavailable DIPESH, SANIYA M Attending Unavailable SELF, REFERRED Referring Unavailable ELOY BANSAL Primary Care Unavailable Eloy Bansal Unavailable Clover, Dr. Celso Rico Attending Sandi vailable Sam, Dr. Tyshawn Dickson Referring Unavailab le Eloy Bansal Primary Care Unavailable MD Eduardo Mas Attending Unavailable Eloy Bansal Primary Care Unavailable Clover, Dr. Celso Rico Referring Sandi MD Eduardo Mayer Admitting Unavailable DIPESH, SANIYA Attending Unavailable DIPESH, SANIYA Admitting Unavailable BANSAL, DR ELOY Calero Primary Care Unavailable DIPESH, SANIYA Consulting Unavailable BANSAL, DR ELOY Calero Primary Care Unavailable SAMSA, TYSHAWN Attending Unavailable SAMSA, TYSHAWN Admitting Unavailable WEST, DR ARMANDO Gooden Consulting Unavailable SAMSA, TYSHAWN Consulting Unavailable DIPESH, SANIYA Attending Unavailable DIPESH, SANIYA Admitting Unavailable BANSAL, DR ELOY Calero Primary Care Unavailable DIPESH, SANIYA Consulting Unavailable DIPESH, SANIAY Attending Unavailable DIPESH, SANIYA Admitting Unavailable BANSAL, DR ELOY Calero Primary Care Unavailable DIPESH, SANIYA Consulting Unavailable DIPESH, SANIYA Admitting Unavailable BANSAL, DR ELOY Calero Primary Care Unavailable DIPESH, SANIYA Consulting Unavailable DIPESH, SANIYA Attending Unavailable BANSAL, DR ELOY Calero Primary Care Unavailable BANSAL, DR ELOY Calero Attending Unavailable BANSAL, DR ELOY Calero Admitting Unavailable BANSAL, DR ELOY Calero Consulting Unavailable SAMSA, TYSHAWN Consulting Unavailable BANSAL, DR ELOY Calero Primary Care Unavailable WEST, DR ARMANDO Gooden Consulting Unavailable SAMSA, TYSHAWN Attending Unavailable SAMSA, TYSHAWN Admitting Unavailable SAMSA, TYSHAWN Consulting Unavailable NIMISHA, DR ELOY Calero Primary Care Unavailable ALESSIA DURHAM Attending Unavailable ALESSIA DURHAM Admitting Unavailable MARKER, DR WHITTINGTON Consulting Unavailable HERMINIO, ALESSIA Consulting Unavailable ARMANDO ZULETA Consulting Unavailable NIMISHA, DR ELOY Calero Primary Care Unavailable NIMISHA, DR ELOY Calero Consulting Unavailable NIMISHA, DR ELOY Calero Attending Unavailable NIMISHA, DR ELOY Calero Admitting Unavailable URIOSTEGUITAMIE Consulting Unavailable NIMISHA, DR ELOY Calero Primary Care Unavailable SAMSA, TYSHAWN Attending Unavailable SAMSA, TYSHAWN Admitting Unavailable SAMSA, TYSHAWN Consulting Unavailable NIMISHA, DR ELOY Calero Primary Care Unavailable SAMSA, TYSHAWN Attending Unavailable SAMSA, TYSHAWN Admitting Unavailable SAMSA, TYSHAWN Consulting Unavailable NIMISHA, DR ELOY Calero Primary Care Unavailable SAMSA, TYSHAWN Attending Unavailable SAMSA, TYSHAWN Admitting Unavailable SAMSA, TYSHAWN Consulting Unavailable POLICARO, ANGELITO Consulting Unavailable NIMISHA, DR ELOY Calero Consulting Unavailable NIMISHA, DR ELOY Calero Primary Care Unavailable NIMISHA, DR ELOY Calero Attending Unavailable NIMISHA, DR ELOY Calero Admitting Unavailable Nimisha, Dr. Eloy Fox Primary Care Unavailab jerry Bansal, Dr. Eloy Fox Referring Unavailab jerry Marquez, Dr. Luiz Franz Attending Unavail able Eloy Bansal MD Primary Care Provider [phone] CELSO IBARRA Attending Unavailable ELOY BANSAL Primary Care Unavailable Lexie Douglas Primary Care Physician [phone] Benji LINDQUIST Attending Unavailable Misael, DAVIDA Seymour Referring Unavailable Misael, DAVIDA Seymour Attending Unavailable Misael, DAVIDA Seymour Attending Unavailable MOUKACARLEEN OLIVAS Attending Unavailable BULL REZA Attending Unavailable Allergies Allergy Classification Reported Allergen(s) Allergy Type Date of Onset Reaction(s) Facility (1 source) No Known Medication Allergies; Translations: [No Known Medication Allergies] Propensity to adverse reactions (disorder) [facility] Repository Medications Current Medications Medication Drug Class(es) Dates Sig (Normalized) Sig (Original) [id number] 200 actuat albuterol 0.09 mg/actuat metered dose [...] 0 Refills: 0 Ordered: 13-May-2022 DO Active Albuterol (Eqv-Ventolin HFA) 90 mcg/inh inhalation aerosol (1 source) Start: 04-19-2024 take 2 puff(s) by mouth every four hours as needed Albuterol (Eqv-Ventolin HFA) 90 mcg/inh inhalation aerosol INHALE 2 PUFFS BY MOUTH EVERY 4 HOURS NEEDED FOR SHORTNESS OF BREATH Start Date: 04/19/24 Status: Ordered albuterol 0.833 mg/ml / ipratropium bromide 0.167 mg/ml inhalation solution (6 sources) Anticholinergi c, beta2-Adrenerg ic Agonist Start: 04-19-2024 take 1 dose by inhalation four times daily albuterol-ipratropi um Inh Judi 3 mL UD INHALE 1 VIAL VIA NEBULIZER 4 TIMES DAILY Start Date: 04/19/24 Status: Ordered take 3 mL by inhalat ion every four hours as needed ipratropium-albuteroL (Duo-Neb) [...] aspirin 81 mg delayed release oral tablet (6 sources) Platelet Aggregation Inhibitor, Nonsteroidal Anti-inflammatory Drug Start: 04-19-2024 take 1 mg by mouth once daily aspirin 81 mg Oral EC Tab mg tab(s), Oral, Daily, Refills(s) 0 Start Date: 04/19/24 Status: Ordered take 1 tablet by mouth once marisol y aspirin 81 mg EC tablet Take 1 tablet (81 mg) by mouth once daily. 0 Active atorvastatin 40 mg oral tablet (6 sources) HMG-CoA Reductase Inhibitor Start: 04-19-2024 take 1 tablet by mouth once daily atorvastatin 40 mg Tab TAKE 1 TABLET BY MOUTH EVERY DAY Start Date: 04/19/24 Status: Ordered take 1 tablet by mouth once marisol y atorvastatin (Lipitor) 40 mg tablet Take 1 tablet (40 mg) by mouth once daily. 0 Active Dulera 200 mcg-5 mcg/inh inhalation aerosol (1 source) Start: 04-19-2024 take 2 puff(s) by mouth twice daily Dulera 200 mcg-5 mcg/inh inhalation aerosol INHALE 2 PUFFS BY MOUTH TWICE DAILY. RINSE MOUTH AFTER USE 30 Start Date: 04/19/24 Status: Ordered empagliflozin 10 mg oral tablet (5 sources) Sodium-Glucose Cotransporter 2 Inhibitor take 1 tablet by mouth once daily empagliflozin (Jardiance) 10 mg Take 1 tablet (10 mg) by mouth once daily. 0 Active famotidine 20 mg oral tablet (1 source) Histamine-2 Receptor Antagonist Start: 04-19-2024 take 1 tablet by mouth twice daily famotidine 20 mg Tab TAKE 1 TABLET BY MOUTH TWICE A DAY Start Date: 04/19/24 Status: Ordered 60 actuat formoterol fumarate 0.005 mg/actuat / mometasone furoate 0.2 mg/actuat metered dose inhaler (5 sources) Corticosteroid, beta2-Adrenergic Agonist take 2 puff(s) by inhalation twice daily mometasone-formote rol (Dulera) 200-5 mcg/actuation inhaler Inhale 2 puffs 2 times a day. 0 Active meclizine hydrochloride 25 mg oral tablet (5 sources) Antiemetic meclizine (Antivert) 25 mg tablet Take by mouth. TAKE DIRECTED. 0 Active Meclizine HCl - 25 MG Oral Tablet TAKE DIRECTED. Quantity: 0 Refills: 0 Ordered: 13-May-2022 DO Active 24 hr metoprolol succinate 25 mg extended release oral tablet (6 sources) beta-Adrenergic Maverick Start: 04-19-2024 metopr olol succinate 25 mg ER Tab 12.5 mg = 0.5 tab(s), Oral, Daily, Refills(s) 0 Start Date: 04/19/24 Status: Ordered take 1 tablet by mouth once marisol y metoprolol succinate XL (Toprol-XL) 25 mg 24 hr tablet Take 1 tablet (25 mg) by mouth once daily. 0 Active pantoprazole 40 mg delayed release oral tablet (1 source) Proton Pump Inhibitor Start: 04-19-2024 take 1 tablet by mouth once daily Pantoprazole [address] Tab 40 mg = 1 tab(s), Oral, Daily, # 90 tab(s), Refills(s) 1, Pharmacy: [facility]/pharmacy #[id number], 176, cm, 04/19/24 13:00:00 EDT, Height/Length Dosing, 79, kg, 04/19/24 13:00:00 EDT, Weight Dosing Start Date: 04/19/24 Status: Ordered sacubitril 24 mg / valsartan 26 mg oral tablet (6 sources) Angiotensin 2 Receptor Maverick Start: 04-19-2024 take 0.5 tablet by mouth at bedtime Entresto 24 mg-26 mg oral tablet TAKE 1/2 TABLET BY MOUTH IN THE MORNING AND AT BEDTIME. Start Date: 04/19/24 Status: Ordered take 1 tablet by mouth once marisol y sacubitriL-valsartan (Entresto) 24-26 mg tablet Take 1 tablet by mouth once daily. 0 Active 60 actuat tiotropium 0.0025 mg/actuat inhalation spray (6 sources) Anticholinergic Start: 04-19-2024 take 2 puff(s) by inhalation once daily Spiriva Respimat 60 ACT 2.5 mcg/inh inhalation aerosol INHALE 2 PUFFS INTO THE LUNGS EVERY DAY FOR 30 DAYS Start Date: 04/19/24 Status: Ordered take 2 puff(s) by inhalation onc e daily tiotropium (Spiriva Respimat) 2.5 mcg/actuation inhaler Inhale 2 puffs once daily. 0 Active Spiriva Respimat 2.5 MCG/ACT Inhalation Aerosol Solution TAKE 2 INHALATIONS DAILY. Quantity: 0 Refills: 0 Ordered: 13-May-2022 DO Active Problems Active Problems Problem Classification Problem Date Documented Date Episodic/Chronic Abdominal pain (2 sources) Right upper quadrant pain; Translations: [Right upper quadrant pain] Onset: 05-14-2024 Episodic Biliary tract disease (7 sources) Biliary calculus; Translations: [Calculus of gallbladder without mention of cholecystitis, without mention of obstruction] Onset: 07-10-2023 07-10-2023 Episodic Chronic obstructive pulmonary disease and bronchiectasis (14 sources) Centriacinar emphysema; Translations: [Other emphysema] Onset: 03-29-2022 Chronic Conditions associated with dizziness or vertigo (3 sources) Dizziness and giddiness; Translations: [DIZZINESS AND GIDDINESS] Onset: 06-11-2022 Episodic Congestive heart failure; nonhypertensive (12 sources) Chronic systolic heart failure; Translations: [Chronic systolic heart failure] Onset: 03-24-2022 Chronic Coronary atherosclerosis and other heart disease (8 sources) Coronary arteriosclerosis; Translations: [Coronary atherosclerosis of unspecified type of vessel, lumbee or graft] Onset: 10-25-2022 07-10-2023 Chronic Disorders of lipid metabolism (1 source) Hyperlipidemia 04-19-2024 Chronic Esophageal disorders (1 source) Gastroesophageal reflux disease 04-19-2024 Chronic Essential hypertension (1 source) Hypertensive disorder 04-19-2024 Chronic Headache; including migraine (4 sources) Headache; [...] [Solitary pulmonary nodule] Onset: 07-12-2023 Episodic Other male genital disorders (1 source) Impotence Onset: 04-21-2023 05-09-2024 Chronic Other nutritional; endocrine; and metabolic disorders (1 source) Overweight 04-19-2024 Episodic Other nutritional; endocrine; and metabolic disorders (1 source) Overweight in adulthood with body mass index of 25 or more but less than 30 04-19-2024 Episodic Other upper respiratory disease (5 sources) Allergic rhinitis; Translations: [Allergic rhinitis, cause unspecified] Onset: 07-10-2023 07-10-2023 Chronic Respiratory failure; insufficiency; arrest (adult) (11 sources) Chronic hypoxemic respiratory failure; Translations: [Chronic respiratory failure] Onset: 07-10-2023 07-12-2023 Chronic Comment on above: Uses O2 with during heat and humidity; Substance-related disorders (11 sources) Tobacco dependence syndrome; Translations: [Unspecified drug-induced [...] Translations: [UNSPECIFIED VISUAL DISTURBANCE] Onset: 06-11-2022 Episodic Complications of surgical procedures or medical care (2 sources) Hypotension due to drugs; Translations: [Hypotension due to drugs] Onset: 11-21-2023 Episodic Nonspecific chest pain (6 sources) Chest pain, unspecified; Translations: [Other chest pain] Onset: 10-14-2021 Episodic Other aftercare (1 source) Other intermodal 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 (current) drug therapy; Translations: [OTH WOOL HAT HYDRAULICKER CURRENT DRUG THERAPY] Onset: 10-14-2021 Episodic Other [...] Value Interpretation Reference Range Facility Office Visiton 05-23-2024 Follow-up visit [id number] Mike Lopez 1960 M Date Provider Department Center 05/23/2024 BULL HARRSI Riki Koch Family History Problem Relation Age of Onset Cancer Mother Family Status - Relation Status Age at Mother Level of Service:73210 CO OFFICE/OUTPATIENT ESTABLISHED MOD MDM 30 MIN Reason for Visit and Comments: Congestive Heart Failure [127] Normal [facility] Ambulatory Visit Summaryon 0 05-17-2024 Ambulatory Visit Summary Ambulatory Visit Summary LILLIAM LOPEZDelgado Natarajan :1960 Visit Date:05/17/2024 Ambulatory Visit Instructions Your Diagnosis Cholelithiasis BMI 25.0-25.9,adult Overweight Smoker Your Care Team Attending Physician - Lexie Blanc Primary Care Physician - Lexie Blanc This Is Your Medications List albuterol (Albuterol (Eqv-Ventolin HFA) 90 mcg/inh inhalation aerosol) albuterol-ipratropium (albuterol-ipratropium Inh Judi 3 mL UD) aspirin (aspirin 81 mg Oral EC Tab) atorvastatin (atorvastatin 40 mg Tab) famotidine (famotidine 20 mg Tab) formoterol-mometasone (Dulera 200 mcg-5 mcg/inh inhalation aerosol) metoprolol (metoprolol succinate 25 mg ER Tab) pantoprazole (Pantoprazole [address] Tab) sacubitril-valsartan (Entresto 24 mg-26 mg oral tablet) tiotropium (Spiriva Respimat 60 ACT 2.5 mcg/inh inhalation aerosol) Procedures Performed Arthroscopy of knee, Biopsy of lung, Cardiac catheterization, Excision of Villalobos's cyst of knee, Meniscal repair. Discharge Vitals Temperature (Temporal Artery) 37.2 ?C Heart Rate (Peripheral) 75 Respiratory Rate 16 Blood Pressure 122/70 Height 176 cm Height 69 in Weight 78 kg Weight 171.6 lb BMI 25.18 Medications What How Much When Why Instructions Unchanged albuterol (Albuterol (Eqv-Ventolin HFA) 90 mcg/ inh inhalation aerosol) INHALE 2 PUFFS BY MOUTH EVERY 4 HOURS NEEDED FOR SHORTNESS OF BREATH Unchanged albuterol-ipratropium (albuterol-ipratropium Inh Judi 3 mL UD) INHALE 1 VIAL VIA NEBULIZER 4 TIMES DAILY Unchanged aspirin (aspirin 81 mg Oral EC Tab) By Mouth Every day Unchanged atorvastatin (atorvastatin 40 mg Tab) TAKE 1 TABLET BY MOUTH EVERY DAY Unchanged famotidine (famotidine 20 mg Tab) TAKE 1 TABLET BY MOUTH TWICE A DAY Unchanged formoterol-mometasone (Dulera 200 mcg-5 mcg/ inh inhalation aerosol) INHALE 2 PUFFS BY MOUTH TWICE DAILY. RINSE MOUTH AFTER USE 30 Unchanged metoprolol (metoprolol succinate 25 mg ER Tab) 0.5 Tablets By Mouth Every day Unchanged pantoprazole (Pantoprazole [address] Tab) 1 Tablets By Mouth Every day Gallstones Acid reflux BMI 25.0-25.9,adult Overweight Smoker Unchanged sacubitril-valsartan (Entresto 24 mg-26 mg oral tablet) TAKE 1/ 2 TABLET BY MOUTH IN THE MORNING AND AT BEDTIME. Unchanged tiotropium (Spiriva Respimat 60 ACT 2.5 mcg/ inh inhalation aerosol) INHALE 2 PUFFS INTO THE LUNGS EVERY DAY FOR 30 DAYS Allergies No Known Allergies No Known Medication Allergies Problems Ongoing - Any problem that you are currently receiving treatment for. Abdominal pain, right upper quadrant Acid reflux BMI 25.0-25.9,adult Cholelithiasis Chronic hypoxemic respiratory failure Chronic systolic heart failure COPD (chronic obstructive pulmonary disease) Coronary arteriosclerosis Erectile dysfunction Hyperlipidemia Hypertension Overweight Smoker Patient Survey You may receive a survey via text or e-mail asking about your office visit. Please share your experience with us by completing your survey. We appreciate your feedback and thank you for choosing us for your care. Normal Chan [facility] Family Medicine Office/Clini c Noteon 05-17-2024 Family Medicine Office/Clinic Note Family Medicine Office/Clinic Note Chief Complaint Follow up to gallstones [facility] Staff Mike is a 63 year old male presenting with 4 week f/u to gallstones US right upper quadrant @ TB on 04/25/24 was supposed to have gallbladder removed. Currently waiting for Cardiac & Pulmonary Clearance. History of Present Illness pt presents today for follow up on gallstones Review of Systems PHQ Score Initial Depression Screen Score: 0 SCORE Physical Exam Vitals & Measurements T: 37.2 ?C(Temporal Artery) HR: 75(Peripheral) RR: 16 BP: 122/70 SpO2: 95% HT: 69 in HT: 176 cm WT: 78 kg WT: 171.6 lb BMI: 25.18 General: alert, no acute distress ENMT: oral mucosa moist, no pharyngeal erythema or exudate Cardiovascular: regular rate and rhythm, normal peripheral perfusion Respiratory: Lungs CTA, respirations non labored Extremities: no deformity, no trauma Neurological: oriented x 4, LOC appropriate for age, CN II-XII intact, motor strength equal & normal bilaterally, speech normal Assessment/Plan 1. Cholelithiasis (K80.20: Calculus of gallbladder without cholecystitis without obstruction) pt will be scheduled to have gallbladder removed once he is cleared by carido and pulm. his gallbladder is nearly full of stones. pt has pain daily and doesn't eat a whole lot. does not need refills. all questions answered. RTC as needed 2. BMI 25.0-25.9,adult (Z68.25: Body mass index [BMI] 25.0-25.9, adult) BMI education given Ordered: Body Mass Index (BMI) documented 3008F Current tobacco smoker 1034F Depression Screening Negative 3352F Discharge medications reconciled with current medications in outpatient record 1111F Medication list documented in medical record 1159F Most recent diastolic blood pressure <80 mm Hg 3078F Patient screen for fall risk: no falls in last year or 1 fall with no injury in last year 1101F Review of all meds by a prescribing practitioner or clinical pharmacist documented in EHR 1160F Systolic BP <130 mm Hg (Most Recent) 3074F 3. Overweight (E66.3: Overweight) see above 4. Smoker (F17.200: Nicotine dependence, unspecified, uncomplicated) consider not smoking Follow-up No qualifying data available Problem List/Past Medical History Ongoing Abdominal pain, right upper quadrant Acid reflux BMI 25.0-25.9,adult Cholelithiasis Chronic hypoxemic respiratory failure Chronic systolic heart failure COPD (chronic obstructive pulmonary disease) Coronary arteriosclerosis Erectile dysfunction Hyperlipidemia Hypertension Overweight Smoker Historical No qualifying data Procedure/Surgical History Arthroscopy of knee, Biopsy of lung, Cardiac catheterization, Excision of Villalobos's cyst of knee, Meniscal repair. Medications Albuterol (Eqv-Ventolin HFA) 90 mcg/inh inhalation aerosol albuterol-ipratropium Inh Judi 3 mL UD aspirin 81 mg Oral EC Tab, Oral, Daily atorvastatin 40 mg Tab Dulera 200 mcg-5 mcg/inh inhalation aerosol Entresto 24 mg-26 mg oral tablet famotidine 20 mg Tab metoprolol succinate 25 mg ER Tab, 12.5 mg= 0.5 tab(s), Oral, Daily Pantoprazole [address] Tab, 40 mg= 1 tab(s), Oral, Daily, 1 refills Spiriva Respimat 60 ACT 2.5 mcg/inh inhalation aerosol Allergies No Known Allergies No Known Medication Allergies Social History Alcohol - Denies Alcohol Use, 05/14/2024 Substance Abuse Current, Marijuana, 3-5 times per week, 05/14/2024 Tobacco 5-9 cigarettes (between 1/4 to 1/2 pack)/day in last 30 days Tobacco Use:. Never Smokeless Tobacco Use:. Cigarettes, 0.25 per day. Started age 13.0 Years. Ready to change: No. Household tobacco concerns: No. Yes, 05/17/2024 Family History Family history is negative Normal [facility] Comment on above: Result Comment: Elec tronically Signed By: Lexie Blanc\.br\Date and Time Signed: 05/17/24 15:00 EDT Ambulatory Visit Summaryon 0 04-19-2024 Ambulatory Visit Summary Ambulatory Visit Summary DOMENICAMIKE MERCEDES :1960 Visit Date:04/19/2024 Ambulatory Visit Instructions Your Diagnosis Gallstones Acid reflux BMI 25.0-25.9,adult Overweight Smoker Your Care Team Attending Physician - Lexie Blanc Primary Care Physician - MARIELOS TRINIDAD, BINU Subramanian This Is Your Medications List albuterol (Albuterol (Eqv-Ventolin HFA) 90 mcg/inh inhalation aerosol) albuterol-ipratropium (albuterol-ipratropium Inh Judi 3 mL UD) aspirin (aspirin 81 mg Oral EC Tab) atorvastatin (atorvastatin 40 mg Tab) famotidine (famotidine 20 mg Tab) formoterol-mometasone (Dulera 200 mcg-5 mcg/inh inhalation aerosol) metoprolol (metoprolol succinate 25 mg ER Tab) pantoprazole (Pantoprazole [address] Tab) sacubitril-valsartan (Entresto 24 mg-26 mg oral tablet) tiotropium (Spiriva Respimat 60 ACT 2.5 mcg/inh inhalation aerosol) Procedures Performed Biopsy of lung, Knee. Discharge Vitals Temperature (Oral) 36.8 ?C Heart Rate (Peripheral) 98 Respiratory Rate 18 Blood Pressure 112/68 Height 176 cm Height 69 in Weight 79 kg Weight 173.8 lb BMI 25.5 What to do next Scheduled Follow-Up Appointments 2023 2:40 PM EDT With: Lexie Blanc Where: [address] [address]- Medications What How Much When Why Instructions New pantoprazole (Pantoprazole [address] Tab) 1 Tablets By Mouth Every day Gallstones Acid reflux BMI 25.0-25.9,adult Overweight Smoker Refills: 1 Pickup at [facility]/pharmacy #[id number] Unchanged albuterol (Albuterol (Eqv-Ventolin HFA) 90 mcg/ inh inhalation aerosol) INHALE 2 PUFFS BY MOUTH EVERY 4 HOURS NEEDED FOR SHORTNESS OF BREATH Unchanged albuterol-ipratropium (albuterol-ipratropium Inh Judi 3 mL UD) INHALE 1 VIAL VIA NEBULIZER 4 TIMES DAILY Unchanged aspirin (aspirin 81 mg Oral EC Tab) By Mouth Every day Unchanged atorvastatin (atorvastatin 40 mg Tab) TAKE 1 TABLET BY MOUTH EVERY DAY Unchanged famotidine (famotidine 20 mg Tab) TAKE 1 TABLET BY MOUTH TWICE A DAY Unchanged formoterol-mometasone (Dulera 200 mcg-5 mcg/ inh inhalation aerosol) INHALE 2 PUFFS BY MOUTH TWICE DAILY. RINSE MOUTH AFTER USE 30 Unchanged metoprolol (metoprolol succinate 25 mg ER Tab) 0.5 Tablets By Mouth Every day Unchanged sacubitril-valsartan (Entresto 24 mg-26 mg oral tablet) TAKE 1/ 2 TABLET BY MOUTH IN THE MORNING AND AT BEDTIME. Unchanged tiotropium (Spiriva Respimat 60 ACT 2.5 mcg/ inh inhalation aerosol) INHALE 2 PUFFS INTO THE LUNGS EVERY DAY FOR 30 DAYS Pharmacy Information [facility]/pharmacy #[id number]: [address], [place] [id number] [phone] Allergies No Known Medication Allergies Problems Ongoing - Any problem that you are currently receiving treatment for. Acid reflux BMI 25.0-25.9,adult COPD (chronic obstructive pulmonary disease) Gallstones Hyperlipidemia Hypertension Overweight Smoker Patient Survey You may receive a survey via text or e-mail asking about your office visit. Please share your experience with us by completing your survey. We appreciate your feedback and thank you for choosing us for your care. Virgil Chan [facility] Family Medicine Office/Clini c Noteon 04-19-2024 Family Medicine Office/Clinic Note Family Medicine Office/Clinic Note Chief Complaint Establish Care HPI Staff Pt is here today to establish care. Establish Care: History: Any previous diagnosis: COPD, HTN, elevated cholesterol History of seeing any specialist: [facility] [employer] [facility]ist When was your last doctors visit: [facility]- 02/2024 Cardio-10/2023 Last provider: Dr. Bansal Any recent labs: [facility] ER 03/11/24 Health Maintenance UTD: Colonoscopy: denies PSA: denies Acute: Current issues/complaints: abdominal problems: [facility] ER 03/11/24. CC: abdominal pain CT performed. DC'd home /dicyclomine famotidine & Protonix Still having upper abdominal pain Did stop eating red sauces. Now feels like everything he eats upsets his stomach. Stools have been light colored. History of Present Illness pt presents today for ER follow up for abdominal pain Review of Systems PHQ Score Initial Depression Screen Score: 0 SCORE Physical Exam Vitals & Measurements T: 36.8 ?C(Oral) HR: 98(Peripheral) RR: 18 BP: 112/68 SpO2: 95% HT: 69 in HT: 176 cm WT: 79 kg WT: 173.8 lb BMI: 25.5 General: alert, no acute distress ENMT: oral mucosa moist, no pharyngeal erythema or exudate Cardiovascular: regular rate and rhythm, normal peripheral perfusion Respiratory: Lungs CTA, respirations non labored Extremities: no deformity, no trauma Neurological: oriented x 4, LOC appropriate for age, CN II-XII intact, motor strength equal & normal bilaterally, speech normal Assessment/Plan 1. Gallstones (K80.20: Calculus of gallbladder without cholecystitis without obstruction) reviewed ER note and lab results. will order u/s of gallbladder. 4-5 years ago patient was supposed to have his gallbladder removed but surgery was canceled due to covid and he hasn't seen a doctor since. over the last several weeks his right upper quadrant pain has been worsening. he ended up in ER the other night because pain was so bad. CT showed cholelithiasis, pt was given 3 meds and discharged home. pt feels the protonix is helping the best. order for u/s of gallbladder to [facility] [facility] provided and faxed. RTC 1 months for follow up. may consider lipid panel Ordered: pantoprazole, 40 mg = 1 tab(s), Oral, Daily, # 90 tab(s), Refills(s) 1, [id number], 176, cm, 04/19/24 13:00:00 EDT, Height/Length Dosing, 79, kg, 04/19/24 13:00:00 EDT, Weight Dosing Body Mass Index (BMI) documented 3008F Current tobacco smoker 1034F Depression Screening Negative 3352F Discharge medications reconciled with current medications in outpatient record 1111F Falls plan of care documented 0518F Medication list documented in medical record 1159F Review of all meds by a prescribing practitioner or clinical pharmacist documented in EHR 1160F 2. Acid reflux (K21.9: Gastro-esophageal reflux disease without esophagitis) pt feels the Protonix has improved his abdominal pain. will order refills. will send referral to GI for possible scope for further evaluation. Ordered: pantoprazole, 40 mg = 1 tab(s), Oral, Daily, # 90 tab(s), Refills(s) 1, [id number], 176, cm, 04/19/24 13:00:00 EDT, Height/Length Dosing, 79, kg, 04/19/24 13:00:00 EDT, Weight Dosing 3. BMI 25.0-25.9,adult (Z68.25: Body mass index [BMI] 25.0-25.9, adult) BMI education given Ordered: pantoprazole, 40 mg = 1 tab(s), Oral, Daily, # 90 tab(s), Refills(s) 1, [id number], 176, cm, 04/19/24 13:00:00 EDT, Height/Length Dosing, 79, kg, 04/19/24 13:00:00 EDT, Weight Dosing 4. Overweight (E66.3: Overweight) see above Ordered: pantoprazole, 40 mg = 1 tab(s), Oral, Daily, # 90 tab(s), Refills(s) 1, [id number], 176, cm, 04/19/24 13:00:00 EDT, Height/Length Dosing, 79, kg, 04/19/24 13:00:00 EDT, Weight Dosing 5. Smoker (F17.200: Nicotine dependence, unspecified, uncomplicated) consider not smoking Ordered: pantoprazole, 40 mg = 1 tab(s), Oral, Daily, # 90 tab(s), Refills(s) 1, [id number], 176, cm, 04/19/24 13:00:00 EDT, Height/Length Dosing, 79, kg, 04/19/24 13:00:00 EDT, Weight Dosing Follow-up No qualifying data available Problem List/Past Medical History Ongoing Acid reflux BMI 25.0-25.9,adult COPD (chronic obstructive pulmonary disease) Gallstones Hyperlipidemia Hypertension Overweight Smoker Historical No qualifying data Procedure/Surgical History Biopsy of lung, Knee. Medications Albuterol (Eqv-Ventolin HFA) 90 mcg/inh inhalation aerosol albuterol-ipratropium Inh Judi 3 mL UD aspirin 81 mg Oral EC Tab, Oral, Daily atorvastatin 40 mg Tab Dulera 200 mcg-5 mcg/inh inhalation aerosol Entresto 24 mg-26 mg oral tablet famotidine 20 mg Tab metoprolol succinate 25 mg ER Tab, 12.5 mg= 0.5 tab(s), Oral, Daily Pantoprazole [address] Tab, 40 mg= 1 tab(s), Oral, Daily, 1 refills Spiriva Respimat 60 ACT 2.5 mcg/inh inhalation aerosol Allergies No Known Medication Allergies Social History Tobacco 5-9 cigarettes (between 1/4 to 1/2 pack (more content not included)... Normal [facility] Comment on above: Result Comment: Elec tronically Signed By: Lexie Blanc\.br\Date and Time Signed: 04/19/24 13:32 EDT Office Visiton 11-21-2023 Follow-up visit [id number] Mike Lopez 1960 M Date Provider Department Center 11/21/2023 CARLEEN TINSLEY BH GAYATRI [facility] Family History Problem Relation Age of Onset Cancer Mother Family Status - Relation Status Age at Mother Level of Service:82391 CO OFFICE/OUTPATIENT ESTABLISHED MOD MDM 30 MIN Normal [facility] Office Visit (Thoracic and E sophageal Surgery)on [...] for his COPD. He was hospitalized in 2018 with a severe respiratory infection requiring 2-week hospital stay. Patient had been worked up recently for a 'weak heart' with echo that showed EF of 53%, RVSP 22. And reported negative cardiac catheterization. There is some discussion of perhaps a cardiomyopathy. No h/o CT. Patient had a prior drinking history many [...] May 03 2023 10:38AM EST (Author) Normal [facility] CT CHEST WO CONon 09-22-2022 CT CHEST [...] by: ARMANDO RESENDIZ Date: 2022-09-22 15:11 Normal [facility] CBCon 06-28-2022 Erythrocyte distribution width (RBC) [Ratio] 12.8 % Normal 11.5 - 14.5 [facility] Comment on above: Performed By: #### C BC #### [address] [address] Hematocrit (Bld) [Volume fraction] 48.1 % Normal 41.0 - 52.0 [facility] Comment on above: Performed By: #### C BC #### [address] [address] Hemoglobin (Bld) [Mass/Vol] 16.4 g/dL Normal 13.5 - 17.5 [facility] Comment on above: Performed By: #### C BC #### [address] [address] MCHC (RBC) [Mass/Vol] 34.1 g/dL Normal 32.0 - 36.0 [facility] Comment on above: Performed By: #### C BC #### [address] [address] MCV (RBC) [Entitic vol] 93 fL Normal 80 - 100 [facility] Comment on above: Performed By: #### C BC #### [address] [address] NUCLEATED RBC 0.0 /100 WBC Normal 0.0 - 0.0 [facility] Comment on above: Performed By: #### C BC #### [address] [address] Platelets (Bld) [#/Vol] 189 10*3/uL Normal 150 - 450 [facility] Comment on above: Performed By: #### C BC #### [address] [address] RBC 5.18 x10E12/L Normal 4.50 - 5.90 [facility] Comment on above: Performed By: #### C BC #### [place] [address] [place] [address] WBC (Bld) [#/Vol] 8.3 10*3/uL Normal 4.4 - 11.3 [facility] Comment on above: Performed By: #### C BC #### [facility] [address] [place] [address] CHEST 1 VIEWon 06-28-2022 CHEST 1 VIEW Patient Name: MIKE LOPEZ STUDY: CHEST 1 VIEW; 06/28/2022 2:43 pm INDICATION: left lung biopsy . COMPARISON: 10/12/2021 ACCESSION NUMBER(S): [id number] ORDERING CLINICIAN: EDUARDO MAS FINDINGS: CARDIOMEDIASTINAL SILHOUETTE: Cardiomediastinal silhouette is [...] pneumothorax. Electronically signed by: RAMONA ONEAL MD [facility] [place], [place] CHEST 1 VIEW Patient Name: MIKE LOPEZ STUDY: CHEST 1 VIEW; 06/28/2022 1:41 pm INDICATION: Left lung biopsy . COMPARISON: 06/28/2022 ACCESSION NUMBER(S): [id number] ORDERING CLINICIAN: EDUARDO MAS FINDINGS: DEVICES: None CARDIOMEDIASTINAL SILHOUETTE: Cardiomediastinal silhouette is normal in size and configuration.Right-si ded aortic arch. No significant atherosclerotic calcification LUNGS: Improved opacity in the left upper lobe since yesterday. No pneumothorax. No pleural effusion. BONES: No acute osseous changes. IMPRESSION: 1. Interval improvement left apical focal opacity since yesterday. No pneumothorax. Electronically signed by: RAMONA ONEAL MD [facility] [place], [place] IN BIOPSY LUNG PERCUTANEOUS NEEDLEon 06-28-2022 IN BIOPSY LUNG PERCUTANEOUS NEEDLE Patient Name: MIKE LOPEZ STUDY: IN BIOPSY LUNG; PERCUTANEOUS NEEDLE; 06/28/2022 12:15 pm INDICATION: CT needle biopsy ANDRE R91.8: Multiple pulmonary nodules. COMPARISON: None. ACCESSION NUMBER(S): [id number] ORDERING CLINICIAN: CELSO IBARRA TECHNIQUE: SHELL MOLD BONDING MACHINE OPERATOR: Eduardo Mas MD CONSENT: The patient was informed [...] and versed. Total intra-service sedation time from 4483-1329 hours (25 minutes). The physician was assisted [...] nodule biopsy as above. Electronically signed by: EDUARDO MAS MD [facility] [place], [place] PT/INRon 06-28-2022 PT Coag (PPP) [Time] 12.2 s Normal 9.8 - 13.4 [facility] Comment on above: Performed By: #### P TINR #### [address] [place] [address] PT, INR 1.1 Normal 0.9 - 1.1 [facility] Comment on above: Performed By: #### P TINR #### [address] [place] [address] [facility] Surgical Pathology Depar tmenton 06-28-2022 [facility] Surgical Pathology Department Name MIKE LOPEZ Pathologist: Katelynn Cyr MD, Ph.D. Date of Procedure: 06/28/2022 Date Received: 06/28/2022 Date Reported 07/01/2022 Submitting Physician: CELSO IBARRA DO Location: [facility] Copy To/Referring/Attending : EDUARDO MAS MD Other External # FINAL DIAGNOSIS LUNG, LEFT UPPER LOBULE NODULE, BIOPSY: --MINUTE FRAGMENT OF LUNG PARENCHYMA WITHOUT SIGNIFICANT PATHOLOGIC FINDINGS, INSUFFICIENT FOR DIAGNOSIS. SEE NOTE Note: Microscopic examination of H AND E sections demonstrates minute fragments of lung parenchyma without significant abnormalities. Findings might not be underwriting service representative of the clinically identified lesion. Clinical correlation is recommended Electronically Signed Out By Katelynn Cyr MD, Ph.D./MAC By the signature on this report, the individual or group listed as making the Final Interpretation/Diagnos is certifies that they have reviewed this case. Diagnostic interpretation performed at [place] [address] Clinical History: Physician Contact Number: [phone] Fixative (A): Formalin Clinical Diagnosis History LEFT LUNG NODULE Specimens Submitted As: A: LEFT UPPER LUNG NODULE Gross Description: Received in formalin, labeled with the patient?s name and hospital number and left lung nodule bx , are multiple minute pink-white, soft tissue fragments aggregating to 0.3 x 0.2 x 0.1 cm. The specimen is submitted in toto in one cassette. RCC rcc/06/28/2022 [facility] Department of Pathology [address] [place] [address] Normal [facility] Comment on above: Performed By: #### U HCS #### [facility] Surgical Pathology Department [address] [address] [facility] [address] MRI BRAIN WO CONon 2 MRI BRAIN [...] mild microvascular ischemic changes Electronically authenticated by: TAMIE URIOSTEGUI Date: 2022-06-09 13:29 Normal [facility] HEMOGLOBINon 05-21-2022 Hemoglobin (Bld) [Mass/Vol] 15.7 g/dL Normal 14.0-18.0 [facility] Comment on above: Performed By: #### B #### [facility] [address] [place] [address] [address] Richard Linares Office Visit (Thoracic and [...] Capacity DLCO; Status:Active - Retrospective Authorization; Requested for:[id number]; Pre/PostBronchodilator Spirometry; Status:Active - Retrospective Authorization; Requested for:[id number]; Provider Impressions Mr. Lopez is a pleasant [...] new pt office visit History of Present IllnessMr. Lopez is a 61-year-old male with moderate [...] discussion of perhaps a cardiomyopathy. No h/o CT. Patient had a prior drinking history many [...] (Z80.9) Father (more content not included)... Normal [employer] Tobacco Screening.on 022 Fall risk assessment a) No falls within the last year [facility] [place] [address] Work Phone: Tobacco use status [facility] a) Yes [facility] [place] [address] Work Phone: FUNGAL AB QUANTITAIVE DOUBLE IMMUNODIFFUon 04-17-2022 Aspergillus flavus Negative Normal Neg:<1:1 [facility] Comment on above: Performed By: #### C VDTBH #### [facility] [address] [place] [address] Dr. Richard Linares Aspergillus fumigatus Negative Normal Neg:<1:1 [facility] Comment on above: Performed By: #### C VDTBH #### [facility] [address] [place] [address] Dr. Richard Linares Aspergillus niger Negative Normal Neg:<1:1 [facility] Comment on above: Performed By: #### C VDTBH #### [facility] [address] [place] [address] [address] Richard Linares Blastomyces Negative Normal Neg:<1:1 [facility] Comment on above: Performed By: #### C VDTBH #### [facility] [address] [place] [address] Dr. Richard Linares HISTOPLASMA CAP AB QUANT DID on 04-16-2022 Histoplasma Mycelial CF Ab. Negative Normal Neg:<1:2 [facility] Comment on above: Performed By: #### B MP #### [facility] [address] [place] [address] Dr. Richard Linares Histoplasma Yeast CF Ab 1:2 Normal Neg:<1:2 [facility] Comment on above: Performed By: #### B MP #### [facility] [address] [place] [address] Dr. Richard Linares ANTI NEUTROPHIL CYTOPLASMIC AB (ANCA) PRon 04-15-2022 Anti-MPO Antibodies <0.2 Normal 0.0-0.[address] [facility] Comment on above: Result Comment: Perf ormed at: BN Performed By: #### B MP #### [facility] [address] [place] [address] Dr. Richard Linares Anti-PR3 Antibodies <0.2 Normal 0.0-0.[address] [facility] Comment on above: Result Comment: Perf ormed at: BN Performed By: #### B MP #### [facility] [address] [place] [address] Dr. Richard Linares Atypical pANCA <1:20 Normal Neg:<1:20 [facility] Comment on above: Result Comment: The atypical pANCA pattern has been observed in a significant percentage of patients with ulcerative colitis, primary sclerosing cholangitis and autoimmune hepatitis. Performed at: CB Performed By: #### B MP #### [facility] [address] [place] [address] Dr. Richard Linares Cytoplasmic (C-ANCA) <1:20 Normal Neg:<1:20 [facility] Comment on above: Result Comment: Perf ormed at: CB Performed By: #### B MP #### [facility] [address] [place] [address] Dr. Richard Linares Perinuclear (P-ANCA) <1:20 Normal Neg:<1:20 [facility] Comment on above: Result Comment: The presence of positive fluorescence exhibiting P-ANCA or C-ANCA patterns alone is not specific for the diagnosis of Arnulfo's Granulomatosis (WG) or microscopic polyangiitis. Decisions about treatment should not be based solely on ANCA IFA results. The International ANCA Group Consensus recommends follow up testing of positive sera with both CO-3 and MPO-ANCA enzyme immunoassays. As many as 5% serum samples are positive only by EIA. Ref. AM J Clin Pathol 1999;111:507-513. Performed at: CB Performed By: #### B MP #### [facility] [address] [place] [address] Dr. Richard Linares CYCLIC CITRULLINATED PEPTIDE AB (CCP)on 04-15-2022 CCP Antibodies IgG/IgA 1 units Normal 0-19 [facility] Comment on above: Result Comment: Nega tive <20 Weak positive 20 - 39 Moderate positive 40 - 59 Strong positive >59 Performed By: #### C VDTBH #### [facility] [address] [place] [address] Dr. Richard Linares HISTOPLASMA GALACTOMANNAN AG URINEon 04-15-2022 Histoplasma Gal'madhuri Ag <0.5 Normal <0.5 ng/mL [facility] Comment on above: Performed By: #### H ISTGAL #### [facility] [address] [place] [address] Dr. Richard Linares OSCAR EIA W/REFLEX 5 BIOMARKER Son 04-14-2022 OSCAR Direct Negative Normal Negative [facility] Comment on above: Performed By: #### C VDTBH #### [facility] [address] [place] [address] Dr. Richard Linares ANGIOTENSION-CONVERTING ENZY ME (MATT)on 04-14-2022 MATT 15 U/L Normal 14-82 [facility] Comment on above: Performed By: #### A NGIOC #### [facility] [address] [place] [address] Dr. Richard Linares ANTISCLERODERMA ABon 022 Antiscleroderma-70 Antibodies <0.2 Normal 0.0-0.9 [facility] Comment on above: Performed By: #### A NSCLER #### [facility] [address] [place] [address] Dr. Richard Linares RHEUMATOID FACTORon 04-14-20 22 RA Latex Turbid. <10.0 Normal <14.0 [place] Comment on above: Performed By: #### B MP #### [facility] [address] [place] [address] Dr. Richard Linares SED RATE WESTERGRENon 2021 SED RATE 1 mm/hr Normal <=20 [facility] Comment on above: Performed By: #### S EDR #### [facility] [address] [place] [address] Dr. [address] PET CT SKULL BASE [...] by: ANGELITO MILAN Date: 2022-04-12 14:48 Normal [facility] CT LUNG CANCER SCREENINGon 0 [...] by: ARMANDO RESENDIZ Date: 2022-03-25 08:22 Normal [facility] ECHOCARDIO M/2D COMPLETEon 0 03-24-2022 ECHOCARDIO M/2D COMPLETE Patient: MIKE LOPEZ Exam Date: 03/24/2022 : 1960 Gender:M Ordering : SANIYA LANDON Admission #: [id number] Family : DR ELOY BANSAL . Order #: [id number] CLICK HERE TO VIEW EXAM ECHOCARDIOGRAM REPORT [...] Lu M.D. on 03/24/2022 at 17:32 Normal [facility] PROF CHEM 8 (BAS METB)on Anion gap [Moles/Vol] 13.4 mmol/L Normal [facility] Comment on above: Performed By: #### C VDTBH #### [facility] [address] [place] [address] Dr. Richard Linares Calcium [Mass/Vol] 9.0 mg/dL Normal 8.5-10.1 [facility] Comment on above: Performed By: #### C VDTBH #### [facility] [address] [place] [address] Dr. Richard Linares Chloride [Moles/Vol] 102 mmol/L Normal 98-107 [facility] Comment on above: Performed By: #### C VDTBH #### [facility] [address] [place] [address] Dr. Richard Linares CO2 [Moles/Vol] 32.1 mmol/L Critically high 21.0-32.0 [facility] Comment on above: Performed By: #### C VDTBH #### [facility] [address] [place] [address] Dr. Richard Linares Creatinine [Mass/Vol] 1.00 mg/dL Normal 0.70-1.30 [facility] Comment on above: Performed By: #### C VDTBH #### [facility] [address] [place] [address] Dr. Richard Linares EGFR-AF GUATEMALAN >=60 Normal >=60 [place] Comment on above: Performed By: #### C VDTBH #### [facility] [address] [place] [address] Dr. Richard Linares EGFR-NON AF GUATEMALAN >=60 Normal >=60 [facility] Comment on above: Performed By: #### C VDTBH #### [facility] [address] [place] [address] Dr. Richard Linares Glucose [Mass/Vol] 109 mg/dL Critically high 74-106 [facility] Comment on above: Performed By: #### C VDTBH #### [facility] [address] [place] [address] Dr. Richard Linares Potassium [Moles/Vol] 4.5 mmol/L Normal 3.5-5.1 [facility] Comment on above: Performed By: #### C VDTBH #### [facility] [address] [place] [address] Dr. Richard Linares Sodium [Moles/Vol] 143 mmol/L Normal 136-145 [facility] Comment on above: Performed By: #### C VDTBH #### [facility] [address] [place] [address] [address] Richard Linares Urea nitrogen [Mass/Vol] 11.0 mg/dL Normal 7.0-18.0 [facility] Comment on above: Performed By: #### C VDTBH #### [facility] [address] [place] [address] Dr. Richard Linares Urea nitrogen/Creatinine [Mass ratio] 11.0 mg/mg Normal [facility] Comment on above: Performed By: #### C [facility] #### [facility] [address] [place], [place] [address] Dr. Richard Linares Cardiovascular Lab Reporton 12-22-2021 Cardiovascular Lab Report [facility] Patient Name: Mike Lopez [facility] MR #: [id number] Physician: Carleen Zuniga of [facility] Service Date: 12/21/2021 Division of Birthdate: 1960 Cardiology Room #: CC Adult Cardiovascular Services [facility] [address] [place], [place] [address] Cardiovascular Laboratory Report INDICATION: The patient is [...] signed informed consent. He was brought to tailings dam laborer in a fasting state. The right neck area was prepped and draped in usual fashion. Micropuncture technique and ultrasound guidance were used for access in the right internal jugular vein. A 6-Tongan x 11 cm sheath was placed. A 6-Tongan Barboza catheter was used for right catheterization with measurement of pressures and calculation of cardiac output using the estimated Bridget method. Barboza catheter was removed. Modified Tyrone's test was favorable on the right. Access in the right radial artery was obtained using micropuncture technique and ultrasound guidance. A 6-Tongan x 11 cm Hydrophilic sheath was advanced. Verapamil was given through the sheath, and heparin was administered intravenously. Bilateral selective coronary angiography was then performed using 6-Tongan JL3.5 and JR5 diagnostic catheters. Catheters were [...] in Cardiology Clinic. Electronically Signed by: Carleen Valdez M.D. 12/26/2021 09:05 A Carleen Valdez M.D. Date Dict: 12/21/2021/02:24 P/Carleen Valdez M.D. Date Trans: 12/22/2021 04:31 A/lois [id number] cc: Eloy Bansal M.D. [address] [place], [place] [id number] Normal [facility] CBC AUTO DIFFon 12-18-2021 BASO # 0.1 103/ul Normal 0.0-0.1 [facility] Comment on above: Performed By: #### C BC #### [facility] [address] [place] [address] [address] Richard Linares Basophils/100 WBC (Bld) 0.8 % Normal 0.2-2.0 [facility] Comment on above: Performed By: #### C BC #### [facility] [address] [place] [address] [address] Richard Linares EO # 0.0 103/ul Normal 0.0-0.7 [facility] Comment on above: Performed By: #### C BC #### [facility] [address] [place] [address] Dr. Richard Linares Eosinophils/100 WBC (Bld) 0.0 % Critically low 0.9-7.0 [facility] Comment on above: Performed By: #### C BC #### [facility] [address] [place] [address] [address] Richard Linares Erythrocyte distribution width (RBC) [Ratio] 12.9 % Normal 11.0-15.0 [facility] Comment on above: Performed By: #### C BC #### [facility] [address] [place] [address] Dr. Richard Linares Hematocrit (Bld) [Volume fraction] 46.1 % Normal 42.0-54.0 [facility] Comment on above: Performed By: #### C BC #### [facility] [address] [place] [address] [address] Richard Linares Hemoglobin (Bld) [Mass/Vol] 15.6 g/dL Normal 14.0-18.0 [facility] Comment on above: Performed By: #### C BC #### [facility] [address] [place] [address] Dr. Richard Linares IG # 0.04 10e3/ul Critically high 0.00-0.03 [facility] Comment on above: Performed By: #### C BC #### [facility] [address] [place] [address] Dr. Richard Linares IG % 0.5 % Normal 0.0-0.5 [facility] Comment on above: Performed By: #### C BC #### [facility] [address] [place] [address] Dr. Richard Linares LYMPH # 1.5 103/ul Normal 1.2-3.8 [facility] Comment on above: Performed By: #### C BC #### [facility] [address] [place] [address] Dr. Richard Linares Lymphocytes/100 WBC (Bld) 17.7 % Critically low 20.5-60.0 [facility] Comment on above: Performed By: #### C BC #### [facility] [address] [place] [address] Dr. Richard Linares MANUAL DIFF REQ NO Normal [facility] Comment on above: Performed By: #### C BC #### [facility] [address] [place] [address] Dr. Rcihard Linares MCH (RBC) [Entitic mass] 31.1 pg Normal 25.9-34.0 [facility] Comment on above: Performed By: #### C BC #### [facility] [facility] [address] [place] [address] Dr. Richard Linares MCHC (RBC) [Mass/Vol] 33.8 g/dL Normal 29.9-35.2 [facility] Comment on above: Performed By: #### C BC #### [facility] [address] [place] [address] Dr. Richard Linares MCV (RBC) [Entitic vol] 92.0 fL Normal 80.0-94.0 [facility] Comment on above: Performed By: #### C BC #### [facility] [address] [place] [address] Dr. Richard Linares MONO # 0.7 103/ul Normal 0.3-0.8 [facility] Comment on above: Performed By: #### C BC #### [facility] [address] [place] [address] Dr. Richard Linares Monocytes/100 WBC (Bld) 8.7 % Normal 1.7-12.0 [facility] Comment on above: Performed By: #### C BC #### [facility] [address] [place] [address] Dr. Richard Linares NEUT # 6.2 103/ul Normal 1.4-6.5 [facility] Comment on above: Performed By: #### C BC #### [facility] [address] [place] [address] Dr. Richard Linares Neutrophils/100 WBC (Bld) 72.3 % Normal 43.0-75.0 [facility] Comment on above: Performed By: #### C BC #### [facility] [address] [place] [address] Dr. Richard Linares Platelet mean volume (Bld) [Entitic vol] 10.2 fL Normal 9.5-13.5 [facility] Comment on above: Performed By: #### C BC #### [facility] [address] [place] [address] Dr. Richard Linares PLT 197 103/ul Normal 150-450 [facility] Comment on above: Performed By: #### C BC #### [facility] [address] [place] [address] Dr. Richard Linares RBC 5.01 106/ul Normal 4.70-6.10 [facility] Comment on above: Performed By: #### C BC #### [facility] [address] [place] [address] Dr. Richard Linares WBC 8.5 103/ul Normal 4.0-11.0 [facility] Comment on above: Performed By: #### C BC #### [facility] [address] [place] [address] Dr. Richard Linares [facility]on 12-04 SARS-CoV-2 (COVID-19) RNA MOLLY+probe Ql (Unsp spec) Not detected Normal NOT DETECTED [facility] Comment on above: Result Comment: This test is not yet approved or cleared by the [place] FDA. When there are no FDA-approved or cleared tests available, and other criteria are met, FDA can make tests available under an emergency access mechanism called an Emergency Use Authorization (EUA). The EUA for this test is supported by the [place] of Health and Human Service's (HHS's) declaration [...] SARS-CoV-2. Performed By: #### B MP #### [facility] [address] [place] [address] Dr. Richard Linares PROF CHEM 8 (BAS METB)on Anion gap [Moles/Vol] 6.2 mmol/L Normal [facility] Comment on above: Performed By: #### B MP #### [facility] [address] [place] [address] Dr. Richard Linares Calcium [Mass/Vol] 8.2 mg/dL Critically low 8.5-10.1 Th [facility] Comment on above: Performed By: #### B MP #### [facility] [address] [place] [address] Dr. Richard Linares Chloride [Moles/Vol] 102 mmol/L Normal 98-107 [facility] Comment on above: Performed By: #### B MP #### [facility] [address] [place] [address] Dr. Richard Linares CO2 [Moles/Vol] 34.6 mmol/L Critically high 22.0-30.0 [facility] Comment on above: Performed By: #### B MP #### [facility] [address] [place] [address] Dr. Richard Linares Creatinine [Mass/Vol] 0.96 mg/dL Normal 0.66-1.25 [facility] Comment on above: Performed By: #### B MP #### [facility] [address] [address] [address] Richard Linares EGFR-AF GUATEMALAN >60 Normal >=60 [place] Comment on above: Performed By: #### B MP #### [facility] [address] [address] [address] Richard Linares EGFR-NON AF GUATEMALAN >60 Normal >=60 [facility] Comment on above: Performed By: #### B MP #### [facility] [address] [address] [address] Richard Linares Glucose [Mass/Vol] 94 mg/dL Normal 74-106 [facility] Comment on above: Performed By: #### B MP #### [facility] [address] [address] [address] Richard Linares Potassium [Moles/Vol] 3.8 mmol/L Normal 3.4-5.0 [facility] Comment on above: Performed By: #### B MP #### [facility] [address] [address] [address] Richard Linares Sodium [Moles/Vol] 139 mmol/L Normal 137-145 [facility] Comment on above: Performed By: #### B MP #### [facility] [address] [address] [address] Richard Linares Urea nitrogen [Mass/Vol] 11.0 mg/dL Normal 7.0-18.0 [facility] Comment on above: Performed By: #### B MP #### [facility] [address] [address] [address] Richard Linares Urea nitrogen/Creatinine [Mass ratio] 11.5 mg/mg Normal [facility] Comment on above: Performed By: #### B MP #### [facility] [address] [address] [address] Richard Linares US carotid doppler BIon 03-3 US carotid doppler [facility] [place] [address] [place] [address] Ultrasound Report Signed Patient: Mike Lopez MR#: [id number] : 1960 Acct:[id number] Age/Sex: 61 / M ADM Date: 12/01/21 Loc: Room: Type: [facility] Attending Dr: Saniya CASTILLO Ordering Provider: Saniya CASTILLO Date of Service: 12/01/21 US/US carotid doppler BI: SYNCOPE AND COLLAPSE Copies to: Saniya CASTILLO CAROTID DUPLEX INDICATION: Syncope PROCEDURE: Color-flow [...] Milton Wei M.D.12/02/2021 4:20 PM Dictation Location: [place] [address] Tech: [facility] Transcribed By: DIANA 12/02/21 162 Dictated By: Milton Wei MD 12/02/21 161 Signed By: 12/02/21 1620 Normal [facility] ECHOCARDIO M/2D COMPLETEon 0 11-27-2021 ECHOCARDIO M/2D COMPLETE Patient: MIKE LOPEZ Exam Date: 11/27/2021 : 1960 Gender:M Ordering : SANIYA LANDON Admission #: [id number] Family : Order #: [id number] CLICK HERE TO VIEW EXAM ECHOCARDIOGRAM REPORT [...] Area(A4C): 15.10 cm2 Left Atrium Systolic Volume(A2C): 91993 mm3 Left Atrium Systolic Volume(A4C): 16926 mm3 Mitral Valve MV E to A Ratio: 0.80 Deceleration [place]: 4530 mm/s2 Mitral Valve A-Wave Peak Velocity: [...] 3 mm[Hg] Right Atrium Dictated by: Carleen Valdez M.D. on 11/30/2021 at 10:30 Approved by: Carleen Valdez M.D. on 11/30/2021 at 10:35 Normal [facility] NM STRESS/REST MULTIon 10-26 NM STRESS/REST MULTI Patient: DOMENICA MIKE H. Exam Date: 10/26/2021 : 1960 Gender:M Ordering : DR ELOY BANSAL . Admission #: [id number] Family : Order #: [id number] CLICK HERE TO VIEW EXAM RADIOLOGY REPORT [...] DEFECT: LOCATION: Basal inferior. Mid-inferior. Apical inferior. [place]. SIZE: Medium (3-4 segments). SEVERITY: Moderate. TYPE: [...] MD on 11/09/2021 at 11:40 Normal [facility] CBC AUTO DIFFon 10-12-2021 BASO # 0.0 103/ul Normal 0.0-0.1 [facility] Comment on above: Performed By: #### B MP #### [facility] [address] [place] [address] Dr. Richard Linares Basophils/100 WBC (Bld) 0.5 % Normal 0.2-2.0 [facility] Comment on above: Performed By: #### B MP #### [facility] [address] [place] [address] Dr. Richard Linares EO # 0.0 103/ul Normal 0.0-0.7 [facility] Comment on above: Performed By: #### B MP #### [facility] [address] [place] [address] Dr. Richard Linares Eosinophils/100 WBC (Bld) 0.0 % Critically low 0.9-7.0 [facility] Comment on above: Performed By: #### B MP #### [facility] [address] [place] [address] Dr. Richard Linares Erythrocyte distribution width (RBC) [Ratio] 12.8 % Normal 11.0-15.0 [facility] Comment on above: Performed By: #### B MP #### [facility] [address] [place] [address] Dr. Richard Linares Hematocrit (Bld) [Volume fraction] 41.8 % Critically low 42.0-54.0 [facility] Comment on above: Performed By: #### B MP #### [facility] [address] [place] [address] Dr. Richard Linares Hemoglobin (Bld) [Mass/Vol] 14.4 g/dL Normal 14.0-18.0 [facility] Comment on above: Performed By: #### B MP #### [facility] [address] [place] [address] Dr. Richard Linares IG # 0.01 10e3/ul Normal 0.00-0.03 [facility] Comment on above: Performed By: #### B MP #### [facility] [address] [place] [address] Dr. Richard Linares IG % 0.2 % Normal 0.0-0.5 [facility] Comment on above: Performed By: #### B MP #### [facility] [address] [place] [address] Dr. Richard Linares LYMPH # 0.9 103/ul Critically low 1.2-3.8 The [facility] Comment on above: Performed By: #### B MP #### [facility] [address] [place] [address] Dr. Richard Linares Lymphocytes/100 WBC (Bld) 15.0 % Critically low 20.5-60.0 [facility] Comment on above: Performed By: #### B MP #### [facility] [address] [place] [address] Dr. Richard Linares MANUAL DIFF REQ NO Normal [facility] Comment on above: Performed By: #### B MP #### [facility] [address] [place] [address] Dr. Richard Linares MCH (RBC) [Entitic mass] 31.4 pg Normal 25.9-34.0 [facility] Comment on above: Performed By: #### B MP #### [facility] [address] [place] [address] Dr. Richard Linares MCHC (RBC) [Mass/Vol] 34.4 g/dL Normal 29.9-35.2 [facility] Comment on above: Performed By: #### B MP #### [facility] [address] [place] [address] Dr. Richard Linares MCV (RBC) [Entitic vol] 91.3 fL Normal 80.0-94.0 [facility] Comment on above: Performed By: #### B MP #### [facility] [address] [place] [address] Dr. Richard Linares MONO # 0.4 103/ul Normal 0.3-0.8 [facility] Comment on above: Performed By: #### B MP #### [facility] [address] [place] [address] Dr. Richard Linares Monocytes/100 WBC (Bld) 6.4 % Normal 1.7-12.0 [facility] Comment on above: Performed By: #### B MP #### [facility] [address] [place] [address] Dr. Richard Linares NEUT # 4.9 103/ul Normal 1.4-6.5 [facility] Comment on above: Performed By: #### B MP #### [facility] [address] [place] [address] Dr. Richard Linares Neutrophils/100 WBC (Bld) 77.9 % Critically high 43.0-75.0 [facility] Comment on above: Performed By: #### B MP #### [facility] [address] [place] [address] Dr. Richard Linares Platelet mean volume (Bld) [Entitic vol] 9.9 fL Normal 9.5-13.5 [facility] Comment on above: Performed By: #### B MP #### [facility] [address] [place] [address] Dr. Richard Linares PLT 208 103/ul Normal 150-450 [facility] Comment on above: Performed By: #### B MP #### [facility] [address] [place] [address] Dr. Richard Linares RBC 4.58 106/ul Critically low 4.70-6.10 [facility] Comment on above: Performed By: #### B MP #### [facility] [address] [place] [address] Dr. Richard Linares WBC 6.3 103/ul Normal 4.0-11.0 [facility] Comment on above: Performed By: #### B MP #### [facility] [address] [place] [address] Dr. Richard Linares Covid-19 PCR ([facility])on SARS-CoV-2 (COVID-19) RNA MOLLY+probe Ql (Unsp spec) Not detected Normal NOT DETECTED [facility] Comment on above: Result Comment: This test is not yet approved or cleared by the [place] FDA. When there are no FDA-approved or cleared tests available, and other criteria are met, FDA can make tests available under an emergency access mechanism called an Emergency Use Authorization (EUA). The EUA for this test is supported by the [place] of Health and Human Service's (HHS's) declaration [...] SARS-CoV-2. Performed By: #### C VDTBH #### [facility] [address] [place] [address] Dr. Richard Linares PROF 14(COMP METB)on 022 Albumin [Mass/Vol] 3.6 g/dL Normal 3.5-5.0 [facility] Comment on above: Performed By: #### C KORI, HSTROPN #### [facility] [address] [place] [address] Dr. Richard Linares Albumin/Globulin [Mass ratio] 1.3 {ratio} Normal [facility] Comment on above: Performed By: #### C KORI, HSTROPN #### [facility] [address] [place] [address] Dr. Richard Linares ALP [Catalytic activity/Vol] 65 U/L Normal 38-126 [facility] Comment on above: Performed By: #### C KORI, HSTROPN #### [facility] [address] [place] [address] Dr. Richard Linares ALT [Catalytic activity/Vol] 12 U/L Critically low 21-72 [facility] Comment on above: Performed By: #### C KORI, HSTROPN #### [facility] [address] [place] [address] Dr. Richard Linares Anion gap [Moles/Vol] 10.1 mmol/L Normal [facility] Comment on above: Performed By: #### C MP, HSTROPN #### [facility] [address] [place] [address] Dr. Richard Linares AST [Catalytic activity/Vol] 8 U/L Critically low 17-59 [facility] Comment on above: Performed By: #### C MP, HSTROPN #### [facility] [address] [place] [address] Dr. Richard Linares Bilirubin [Mass/Vol] 0.6 mg/dL Normal 0.2-1.3 [facility] Comment on above: Performed By: #### C MP, HSTROPN #### [facility] [address] [address] [address] Richard Linares Calcium [Mass/Vol] 8.3 mg/dL Critically low 8.4-10.2 [facility] Comment on above: Performed By: #### C MP, HSTROPN #### [facility] [address] [address] [address] Richard Linares Chloride [Moles/Vol] 106 mmol/L Normal 98-107 [facility] Comment on above: Performed By: #### C KORI, HSTROPN #### [facility] [address] [place] [address] Dr. Richard Linares CO2 [Moles/Vol] 29.4 mmol/L Normal 22.0-30.[address] [facility] Comment on above: Performed By: #### C KORI, HSTROPN #### [facility] [address] [place] [address] Dr. Richard Linares Creatinine [Mass/Vol] 0.73 mg/dL Normal 0.66-1.25 [facility] Comment on above: Performed By: #### C KORI, HSTROPN #### [facility] [address] [place] [address] Dr. Richard Linares EGFR-AF GUATEMALAN >60 Normal >=[address] [facility] Comment on above: Performed By: #### C MP, HSTROPN #### [facility] [address] [place] [address] Dr. Richard Linares EGFR-NON AF GUATEMALAN >60 Normal >=60 [facility] Comment on above: Performed By: #### C MP, HSTROPN #### [facility] [address] [place] [address] Dr. Richard Linares Globulin (S) [Mass/Vol] 2.8 g/dL Normal [facility] Comment on above: Performed By: #### C KORI, HSTROPN #### [facility] [address] [address] [address] Richard Linares Glucose [Mass/Vol] 133 mg/dL Critically high 74-106 [facility] Comment on above: Performed By: #### C MP, HSTROPN #### [facility] [address] [address] [address] Richard Linares Potassium [Moles/Vol] 3.5 mmol/L Normal 3.4-5.0 [facility] Comment on above: Performed By: #### C MP, HSTROPN #### [facility] [address] [address] [address] Richard Linares Protein [Mass/Vol] 6.4 g/dL Normal 6.1-8.2 [facility] Comment on above: Performed By: #### C MP, HSTROPN #### [facility] [address] [place] [address] Dr. Richard Linares Sodium [Moles/Vol] 142 mmol/L Normal 137-145 [facility] Comment on above: Performed By: #### C MP, HSTROPN #### [facility] [address] [address] [address] Richard Linares Urea nitrogen [Mass/Vol] 9.0 mg/dL Normal 9.0-20.0 [facility] Comment on above: Performed By: #### C MP, HSTROPN #### [facility] [address] [address] [address] Richard Linares Urea nitrogen/Creatinine [Mass ratio] 12.3 mg/mg Normal [facility] Comment on above: Performed By: #### C MP, HSTROPN #### [facility] [address] [address] [address] Richard Linares TROPONIN, HIGH SENSITIVITYon 10-12-2021 HSTROP 6.9 pg/mL Normal 4.0-42.2 [facility] Comment on above: Result Comment: CUT- OFF POINTS HAVE BEEN ESTABLISHED BASED ON THE FOURTH UNIVERSAL DEFINITIONS OF MYOCARDIAL INFARCTION. THE UPPER REFERENCE LIMIT (URL) OF TROPONIN, DEFINED THE 99TH PERCENTILE OF cTnI DISTRIBUTION IN A REFERENCE POPULATION, HAS BEEN CONFIRMED THE DECISION THRESHOLD FOR CT DIAGNOSIS. Performed By: #### H STROPN #### [facility] [address] [place], [place] [address] Dr. Richard Linares HSTROP 6.0 pg/mL Normal 4.0-42.2 [facility] Comment on above: Result Comment: CUT- OFF POINTS HAVE BEEN ESTABLISHED BASED ON THE FOURTH UNIVERSAL DEFINITIONS OF MYOCARDIAL INFARCTION. THE UPPER REFERENCE LIMIT (URL) OF TROPONIN, DEFINED THE 99TH PERCENTILE OF cTnI DISTRIBUTION IN A REFERENCE POPULATION, HAS BEEN CONFIRMED THE DECISION THRESHOLD FOR CT DIAGNOSIS. Performed By: #### C MP, HSTROPN #### [facility] [address] [place], [place] [address] Dr. Richard Linares XR CHEST 1 Von [...] by: ARMANDO ZULETA Date: 2021-10-12 19:22 Normal [facility] Vital Signs Date Time Vital Sign Value Performing Clinician Brennan hardwick 05-14-2024 14:14-0400 Blood Pressure Location Artify It [facility] [place] 05-14-2024 14:14-0400 Diastolic blood pressure 66 mm[Hg] Artify It [facility] [place] 05-14-2024 14:14-0400 Heart rate 72 /min Art[facility] It [facility] [place] 05-14-2024 14:14-0400 Respiratory rate 16 /min Benji Vesta Medical [facility] [place] 05-14-2024 14:14-0400 Systolic blood pressure 102 mm[Hg] Benji NILL [facility] [place] 05-13-2022 10:53-0400 Body height 182.88 cm Eloy Bansal Work Phone: UV-Rirsjvwtig-Pbxh ia 101 Work Phone: 05-13-2022 10:53-0400 Body mass index (BMI) [Ratio] 22.92 kg/m2 Eloy Bansal Work Phone: OR-Kqwbehyqka-Ejqc ia 101 Work Phone: 05-13-2022 10:53-0400 Body surface area Derived from formula 1.98 m2 Eloy Bansal Work Phone: XW-Vnyrbzwswt-Tefn ia 101 Work Phone: 05-13-2022 10:53-0400 Body temperature 97.1 [degF] Eloy Bansal Work Phone: MO-Kuhhlhhodf-Thwb ia [address] Work Phone: 05-13-2022 10:53-0400 Body weight 76.66 kg Eloy Bansal Work Phone: US-Desjpmfwqa-Xobn ia 101 Work Phone: 05-13-2022 10:53-0400 Diastolic blood pressure 69 mm[Hg] Eloy Bansal Work Phone: QQ-Llpuglcvgk-Xuff ia 101 Work Phone: 05-13-2022 10:53-0400 Heart rate 109 /min Eloy Bansal Work Phone: OF-Gtrsdpzwwb-Eeaa ia 101 Work Phone: 05-13-2022 10:53-0400 Respiratory rate 16 /min Eloy Bansal Work Phone: KD-Ptlmiiknam-Tnhn ia 101 Work Phone: 05-13-2022 10:53-0400 SaO2% (BldA) [Mass fraction] 94 % Eloy Bansal Work Phone: UZ-Fxyzutktlb-Dyfn ia 101 Work Phone: 05-13-2022 10:53-0400 Systolic blood pressure 107 mm[Hg] Eloy Bansal Work Phone: UP-Jsrxgshbmx-Gjdb ia 101 Work Phone: Encounters Encounter Date Encounter Type Care Provider Facility Start: 05-23-2024 End: 05-23-2024 ambulatory [facility] Start: 05-23-2024 End: 05-23-2024 Encounter for other preprocedural examination [facility] Start: 05-17-2024 End: 05-17-2024 ambulatory MEDIA COORDINATOR Lexie L Misael Facility:[facility] Start: 05-14-2024 End: 05-14-2024 ambulatory Benji R NILL Facility:[facility] Start: 05-14-2024 End: 05-14-2024 Patient encounter procedure Benji R NILL [facility] [place] Start: 05-04-2024 ambulatory Benji NILL Facility:[facility] [place] Start: 05-04-2024 ambulatory Benji NILL Facility:[facility] Start: 04-19-2024 End: 04-19-2024 ambulatory MEDIA COORDINATOR Lexie L Misael Facility: [facility] [place] Start: 11-21-2023 End: 11-21-2023 ambulatory [facility] Start: 07-12-2023 End: 07-13-2023 ambulatory CELSO Alvarez [facility] Start: 07-12-2023 End: 07-12-2023 Phys/qhp telephone evaluation 11-20 min Celso Ibarra DO Work Phone: [facility] Comment on above: Cigarette nicotine d ependence with nicotine-induced disorder (Primary Dx); Chronic respiratory failure with hypoxia, on home O2 therapy (CMS/HCC); Centrilobular emphysema (CMS/HCC); Lung nodule Start: 04-14-2023 Patient encounter procedure Eloy Bansal Work Phone: [facility] Work Phone: Start: 04-14-2023 Phys/qhp telephone evaluation 11-20 min Eloy Bansal Work Phone: [facility] Work Phone: Start: 04-14-[address] Eloy Bansal F acility:[facility] Start: 09-22-2022 End: 09-23-[address] ELOY BANSAL Facility:[facility] Start: 06-28-2022 End: 06-28-2022 ambulatory MD Eduardo Mas Facility:[id number] Start: 06-09-2022 End: 06-10-[address] ELOY BANSAL Facility:[facility] Start: 05-21-2022 End: 05-22-[address] ELOY BANSAL Facility:[facility] Start: 05-13-[address] Celso santamaria [facility] Facility:[id number] Start: 05-13-2022 Office outpatient ne w 45 minutes Eloy Bansal Work Phone: [facility] Work Phone: Start: 05-13-2022 Patient encounter procedure Eloy Bansal Work Phone: ZH-Mijgwlhxfu-Uxlkrr 101 Work Phone: Start: 04-13-2022 End: 04-14-[address] ELOY BANSAL Facility:[facility] Start: 04-10-2022 End: 04-11-[address] ELOY BANSAL Facility:[facility] Start: 03-24-2022 End: 03-25-2022 ambulatory SANIYA LANDON Facility:[facility] Start: 02-19-2022 End: 02-20-2022 ambulatory SANIYA LANDON Facility:[facility] Start: 12-21-2021 End: 12-22-2021 ambulatory SANIYA LANDON Facility:[facility] Start: 12-18-2021 End: 12-19-2021 ambulatory SANIYA LANDON Facility:[facility] Start: 11-27-2021 End: 11-28-2021 ambulatory SANIYA LANDON Facility:[facility] Start: 11-09-2021 End: 11-10-[address] ELOY BANSAL Facility:[facility] Start: 10-26-2021 End: 10-27-[address] ELOY BANSAL Facility:[facility] Start: 10-12-2021 End: 10-13-[address] ELOY BANSAL Facility:[facility] Procedures Date Procedure Procedure Detail Performing Clinician Arthroscopy of knee Eloy wallace Work Phone: Comment on above: Right; Arthroscopy of knee Benji NILL Biopsy of lung Benji NILL Cardiac catheterization Joe aeabdirizak NILL Excision of Villalobos's cyst of knee Benji NILL Excision of cyst Eloy [employer] Work Phone: Comment on above: R knee; Repair of meniscus Benji Alvarez BELIA Plan of Treatment Date Care Activity Detail Author Start: 07-03-2024 End: 07-03-2024 Telemedicine consultation with patient 07/03/2024 12:00 PM EDT Telemedicine [facility] [address] [place] [address] [phone] [place] [address] [place] [address] [facility] Start: 05-06-2023 Influenza vaccination Influenza Vaccine (#1) [facility] Start: 2010 Zoster Vaccines (1 of 2) Zoster Vaccines (1 of 2) [facility] Start: 1982 DTaP/Tdap/Td Vaccines (1 - Tdap) DTaP/Tdap/Td Vaccines (1 - Tdap) [facility] Start: 11-08-1979 Hepatitis A Vaccines (1 of 2 - Risk 2-dose series) Hepatitis A Vaccines (1 of 2 - Risk 2-dose series) [facility] Start: 1978 Diabetes mellitus screening Diabetes Screening [facility] Start: 1978 Hepatitis C screening Hepatitis C Screening [facility] Start: 1966 Pneumococcal Vaccine: Pediatrics (0 to 5 Years) and At-Risk Patients (6 to 64 Years) (1 - PCV) Pneumococcal Vaccine: Pediatrics (0 to 5 Years) and At-Risk Patients (6 to 64 Years) (1 - PCV) [facility] Start: 1961 MMR Vaccines (1 of 1 - Standard series) MMR Vaccines (1 of 1 - Standard series) [facility] Start: 05-10-1961 COVID-19 Vaccine (#1) COVID-19 Vaccine (#1) [facility] Start: 1960 Creatinine measurement Creatinine Level [facility] Start: 1960 Echocardiography Echocardiogram [facility] Start: 1960 HIV screening HIV Screening [facility] Start: 1960 Lipid panel Lipid Panel [facility] Start: 1960 Potassium measurement Potassium Level [facility] Start: 1960 Screening for malignant neoplasm of colon [facility] Start: 1960 Thyroid stimulating hormone measurement TSH Level [facility] Start: 1960 Yearly Adult Physical Yearly Adult Physical [facility] Payers Date Payer Category Payer Unknown 2016 Unknown [id number] 1960 Unknown [id number] 2.16.8 [id number] 1960 Unknown [id number] 2.16.8 40.1.567142.3.579.2.1068 1960 Unknown [id number] 2.16.8 40.1.963149.3.579.2.1069 1960 Unknown [id number] 2.16.84 0.1.872406.3.579.2.593 1960 Unknown [id number] 2.16.84 0.1.206995.3.579.2.593 1960 Unknown [id number] 2.16.84 0.1.176644.3.579.2.593 1960 Unknown [id number] 2.16.84 0.1.722425.3.579.2.593 1960 Unknown [id number] 2.16.84 0.1.130281.3.579.2.593 1960 Unknown [id number] 2.16.84 0.1.918401.3.579.2.593 1960 Unknown [id number] 2.16.84 0.1.390210.3.579.2.593 1960 Unknown [id number] 2.16.84 0.1.088136.3.579.2.593 1960 Unknown [id number] 2.16.84 0.1.433121.3.579.2.593 1960 Unknown [id number] 2.16.84 0.1.151519.3.579.2.593 1960 Unknown [id number] 2.16.84 0.1.068325.3.579.2.593 1960 Unknown [id number] 2.16.84 0.1.723393.3.579.2.593 1960 Unknown [id number] 2.16.84 0.1.184432.3.579.2.593 1960 Unknown [id number] 2.16.84 0.1.033941.3.579.2.593 1960 Unknown [id number] 2.16. 840.1.335288.3.579.2.356 1960 Unknown [id number] 2.16.8 40.1.867063.3.579.2.1245 1960 Unknown [id number] 2.16.8 40.1.748326.3.579.2.727 1960 Unknown [id number] 2.16.8 40.1.405948.3.579.2.727 1960 Unknown [id number] 2.16.8 40.1.779793.3.579.2.727 1959 Self-pay [id number] 1959 Unknown [id number] Social History Date Type Detail Facility Start: 07-07-2023 Current smoker Current smoker [facility] Work Phone: Comment on above: 2 ppd X 44 yrs, curr ently 4 cig day(2021); Start: 07-07-2023 Tobacco smoking stat [facility] Smokes tobacco daily [facility] Work Phone: History of tobacco use Cigarette Smoker [facility] Work Phone: Start: 07-07-2023 Tobacco use panel [facility] Start: 1960 Sex Assigned At Not on file [facility] Work Phone: Start: 07-02-2023 End: 07-12-2023 Exposure to SARS-CoV-2 (event) Not sure [facility] Start: 05-14-2024 Tobacco smoking status Light t obacco smoker (finding) [facility] Tobacco smoking status Never [facility] Functional Status Date Assessment Result Facility 05-14-2024 Functional Status N/A [facility] Clinical Notes 03-05-2021 to 05-23-2024 Celso Ibarra, DO - 07/12/2023 1:30 PM EST Note Date & Type Note Facility 05-23-2024 Note Pt here for follow u p on chronic systolic heart failure, CAD, COPD. Denies chest pain, SOB palpitations or edema Review of Systems Neurological: Positive for dizziness. [facility] 05-23-2024 Note Cardiovascular Medic ine [facility] SUBJECTIVE Chief Complaint Patient presents with Congestive Heart Failure Mike Lopez is a 63 y.o. male here for follow-up. His Lynette accompanied him today. HPI PMHx: HFrEF, NICM, CAD (mild dz per 12/2021 cath), COPD He is pending surgery for his gallbladder with Dr. Lindquist. He has lots of stones. He has intermittent abdominal pain. BP at home has been running 110-130/70-80s. He has dizziness that is ongoing. He has WHITE - this is unchanged. Denies CP, orthopnea, PND, LE edema, palpitations. Patient Active Problem List Diagnosis Chronic systolic congestive heart failure (CMS/HCC) Coronary artery disease involving lumbee coronary artery of lumbee heart without angina pectoris Impotence Chronic obstructive lung disease (CMS/HCC) Hypothyroidism Induration penis plastica Right inguinal hernia Rhinitis, allergic Lung nodule Cigarette nicotine dependence with nicotine-induced disorder Chronic respiratory failure with hypoxia, on home O2 therapy (CMS/HCC) Cholelithiasis without cholecystitis Centrilobular emphysema (CMS/HCC) Past Medical History: Diagnosis Date CAD (coronary artery disease) COPD (chronic obstructive pulmonary disease) (CMS/HCC) Hypothyroidism Near syncope Systolic heart failure, chronic (CMS/HCC) Family History Problem Relation Name Age of Onset Cancer Mother Social History Tobacco Use Smoking status: Every Day Packs/day: .25 Types: Cigarettes No Known Allergies ROS Neurological: Positive for dizziness. OBJECTIVE Visit Vitals BP 98/65 (BP Location: Right arm, Patient Position: Sitting) Pulse 98 Wt 77.1 kg (170 lb) SpO2 93% BMI 23.06 kg/m??? Smoking Status Every Day BSA 1.98 m??? Medications: Current Outpatient Medications: albuterol 90 mcg/actuation inhaler, INHALE 2 PUFFS BY MOUTH EVERY 4 HOURS NEEDED FOR SHORTNESS OF BREATH, Disp: , Rfl: ascorbic acid (Vitamin C) 1,000 mg tablet, Take 1,000 mg by mouth in the morning., Disp: , Rfl: aspirin 81 mg EC tablet, Take 1 tablet every day by oral route., Disp: , Rfl: atorvastatin (Lipitor) 40 mg tablet, TAKE 1 TABLET BY MOUTH EVERY DAY, Disp: 90 tablet, Rfl: 3 famotidine (Pepcid) 20 mg tablet, Take 20 mg by mouth two times daily., Disp: , Rfl: meclizine (Antivert) 25 mg tablet, TAKE 1 TABLET BY MOUTH EVERY 6 HOURS NEEDED FOR DIZZINESS, Disp: , Rfl: metoprolol succinate XL (Toprol-XL) 25 mg 24 hr tablet, TAKE 1/2 TABLET BY MOUTH ONCE EVERYDAY, Disp: 45 tablet, Rfl: 3 mometasone-formoterol (Dulera 200) 200-5 mcg/actuation inhaler, INHALE 2 PUFFS BY MOUTH TWICE A DAY *RINSE MOUTH AFTER USE*, Disp: , Rfl: pantoprazole (ProtoNix) 40 mg EC tablet, Take 40 mg by mouth before breakfast. Do not crush, chew, or split., Disp: , Rfl: sacubitril-valsartan (Entresto) 24-26 mg tablet, Take 0.5 tablets by mouth in the morning and at bedtime., Disp: 90 tablet, Rfl: 3 tiotropium (Spiriva) 18 mcg inhalation capsule, Place 1 capsule into inhaler and inhale in the morning., Disp: , Rfl: Physical Exam Constitutional: Appearance: Normal appearance. He is normal weight. HENT: Head: Normocephalic and atraumatic. Right Ear: External ear normal. Left Ear: External ear normal. Eyes: Extraocular Movements: Extraocular movements intact. Pupils: Pupils are equal, round, and reactive to light. Neck: Vascular: No carotid bruit. Cardiovascular: Rate and Rhythm: Normal rate and regular rhythm. Pulses: Normal pulses. Heart sounds: Normal heart sounds. Pulmonary: Effort: Pulmonary effort is normal. Breath sounds: Normal breath sounds. Abdominal: General: Bowel sounds are normal. Palpations: Abdomen is soft. Musculoskeletal: General: Normal range of motion. Cervical back: Neck supple. Right lower leg: No edema. Left lower leg: No edema. Skin: General: Skin is warm and dry. Neurological: General: No focal deficit present. Mental Status: He is alert and oriented to person, place, and time. Psychiatric: Mood and Affect: Mood normal. Behavior: Behavior normal. Thought Content: Thought content normal. Judgment: Judgment normal. Labs: Legacy Encounter on 12/21/2021 Component Date Value Ref Range Status Ventricular Rate 12/21/2021 93 BPM Final Atrial Rate 12/21/2021 93 BPM Final CO Interval 12/21/2021 140 ms Final QRS DURATION 12/21/2021 90 ms Final QT Interval 12/21/2021 330 ms Final QTC CALCULATION(BAZETT) 12/21/2021 410 ms Final P [place] 12/21/2021 72 degrees Final R-[place] 12/21/2021 76 degrees Final T Wave [place] 12/21/2021 57 degrees Final Diagnosis 12/21/2021 Final Value:Normal sinus rhythm Normal ECG No previous ECGs available Confirmed by Randolph Chandra ([id number]) on 12/22/2021 8:48:12 AM Blood testing 04/21/2023: Potassium 4.4, BUN 11, creatinine 0.85, LFTs normal, cholesterol 112, HDL 45, triglycerides 44, LDL 58, hemoglobin 14.8, platelets 213. labs- 02/19/22 BUN 11, CR 1.00- nor (more content not included)... [facility] 05-14-2024 Note General Surgery Offi ce/Clinic Note Chief Complaint consultation for cholelithiasis HPI Staff 63 year old male presents on consultation from Lexie Douglas for cholelithiasis. Patient presented to [facility] ED 03/11 with complaint of worsening RUQ pain over several days, denied nausea or vomiting. CT with cholelithiasis. Abdominal US completed 04/25 with cholelithiasis. Reports experiencing RUQ pain for many years. Verbalized pain used to be intermittent. Over the past several months, he's been experiencing daily RUQ pain that waxes and wanes in intensity. Describes pain as being kicked . Denies experiencing nausea, vomiting or diarrhea. History of Present Illness 63 yo male with h/o CAD, htn, hyperlipidemia, COPD, chronic hypoxemic respiratory failure, referred for abd pain and cholelithiasis; patient seen at [facility] ED 2 months ago for several day h/o upper abd pain, no N/V or bowel changes; normal labs; abd/pelvic ct scan with cholelithiasis, no gallbladder inflammation; GB US 3 weeks ago as outpatient with numerous stones, no ductal dilation, no GB wall thickening; patient reports 4 year h/o intermittent abd pain; worse with spicy and acidic foods, carbonated beverages; no h/o jaundice or pancreatitis; currently on Protonix and Pepcid; no abd operations; on baby asa daily, no NSAID use; smokes daily. patient sees [facility] [place] yearly, [facility] at [facility], reported for heart failure; and Physical Medicine Specialist, Dr Nuñez; he reports recent appointment; smokes daily; uses oxygen at night and prn during the day. Review of Systems PHQ Score Initial Depression Screen Score: 0 SCORE ROS - Provider Constitutional: no fever, no sweats, no weight loss. Eyes: no glasses, no blurred vision, no visual loss. ENMT: no dentures, no hoarseness, no swallowing difficulties, no hearing loss, no ear infection(s), no nose bleeds. Cardiovascular: normal blood pressure, no chest pain, regular heartbeat, no heart murmur. Respiratory: no shortness of breath, no cough, no asthma, no wheezing. Gastrointestinal: no nausea, no vomiting, no diarrhea, no constipation, no blood in stool, no change in bowel habits, no abdominal pain, no hepatitis. Genitourinary: no kidney stones, no urine infection, no dysuria. Musculoskeletal: no pain, no weakness. Skin: no changing moles, no rash, no skin lumps. Neurologic: no seizures, no epilepsy, no headache. Psychiatric: no emotional or psychiatric problem. Heme/Lymph: no bleeding problems, no anemia, no blood clots, no transfusions. Allergy/Immunologic: no swollen lymph nodes/glands, no IV drug abuse. Other: Additional ROS info: Except as noted in the above Review of Systems and in the History of Present Illness, all other systems have been reviewed and are negative or noncontributory. Physical Exam Vitals & Measurements HR: 72(Peripheral) RR: 16 BP: 102/66 HT: 69 in HT: 176 cm WT: 77.9 kg WT: 171.38 lb BMI: 25.15 HEENT: normal conjunctiva, sclera clear, no scleral icterus, EOM intact, PERRLA, oral mucosa moist without lesions. Neck: trachea midline, no mass, symmetric, no thyromegaly or nodules, no adenopathy Respiratory: lungs CTA, respirations non labored. Cardiovascular: regular rate and rhythm, no murmur, no pedal edema or varicosities. Gastrointestinal: soft, non distended, mild tenderness, epigastrium and RUQ, no peritoneal signs no masses, no palpable hernias, diastasis recti no, no hepatosplenomegaly; normal bs Lymphatic: no cervical adenopathy, no supraclavicular adenopathy. Musculoskeletal: normal gait, digits and nails without infection, nodes, cyanosis, clubbing. Skin: no rashes, no lesions, no ulcers, no subcutaneous nodules, induration. Psychiatric/Neuro: oriented to time, place, person, judgement normal, affect appropriate for age, insight intact, no focal deficits. Tests: labs reviewed, x-rays reviewed, review of old records completed , Discussed surgical options, risks, and possible complications with patient. Assessment/Plan 1. Abdominal pain, right upper quadrant (R10.11: Right upper quadrant pain) multiple gallstones, no ductal dilation or wall thickening, normal labs; some symptoms more consistent with reflux or gastritis; patient on Protonix and Pepcid; discussed LS cholecystectomy in detail, possible open procedure; patient high risk due to pulmonary and cardiac disease; will obtain cardiac and pulmonary clearance; recommend low fat diet; if worsening pain, fever, nausea/vomiting; return to ED. call with problems/questions. 2. Cholelithiasis (K80.20: Calculus of gallbladder without cholecystitis without obstruction) see # 1 Follow-up No qualifying data available Problem List/Past Medical History Ongoing Abdominal pain, right upper quadrant Acid reflux BMI 25.0-25.9,adult Cholelithiasis Chronic hypoxemic respiratory failure Chronic systolic heart failure COPD (chronic obstructive pulmonary disease) Coronary arteriosclerosis Erectile dysfunction Hyperlipidemia Hypertension Overweight (more content not included)... [facility] Comment on above: Result Comment: Elec tronically Signed By: JAMEL TRINIDAD, Benji Pepper.munir\Date and Time Signed: 05/14/24 16:10 EDT 11-21-2023 Note [place] [facility] Subjective Mike Lopez is a 63 y.o. year old male patient being seen for 6 mo follow up chronic systolic heart failure and CAD. Had some tests for pulmonary in the fall. Denies chest pain. Says his WHITE remains unchanged. Still gets dizzy spells with near syncope. Patient Active Problem List Diagnosis Chronic systolic congestive heart failure (CMS/HCC) Coronary artery disease involving lumbee coronary artery of lumbee heart without angina pectoris Impotence Chronic obstructive [...] Every Day Packs/day: .25 Types: Cigarettes HPI Mike is seen in follow-up. He is a [...] Rate 12/21/2021 93 Atrial Rate 12/21/2021 93 CO Interval 12/21/2021 140 QRS DURATION 12/21/2021 90 QT Interval 12/21/2021 330 QTC CALCULATION(BAZETT) 12/21/2021 410 P [place] 12/21/2021 72 R-[place] 12/21/2021 76 T Wave [place] 12/21/2021 57 Diagnosis 12/21/2021 Value:Normal sinus rhythm Normal ECG No previous ECGs available Confirmed by Randolph Chandra (80) on 12/22/2021 8:48:12 AM Blood testing 04/21/2023: Potassium 4.4, BUN 11, creatinine 0.85, LFTs norm (more content not included)... [facility] 07-12-2023 History of Present illness Narrative C/C: Follow up visit History Of Present Illness Mike Lopez is a 62 y.o. male presenting [...] discussion of perhaps a cardiomyopathy. No h/o CT. Patient had a prior drinking history many years ago. Current smoker, several cigarettes per day down from 2 packs/day. Past Medical History He has a past medical history of CAD (coronary artery disease), Cholelithiasis, COPD (chronic obstructive pulmonary disease) (CMS/HCC), Emphysema of lung (CMS/HCC), Heart failure, chronic systolic (CMS/HCC), Lung nodule, [...] Results: Pathology: N/A Imagin06/22/2023 CT Chest from OSH was personally reviewed Assessment/Plan Diagnoses and all orders for this visit: Cigarette nicotine dependence with nicotine-induced disorder Chronic respiratory failure with hypoxia, on home O2 therapy (CMS/HCC) Centrilobular emphysema (CMS/HCC) Lung nodule Mike Lopez is a 62 y.o. male with [...] order this and have it done at [place]. Celso Ibarra DO Thoracic & Esophageal Surgery documented in this encounter [facility] Work Phone: 06-05-2022 History of Present illness Narrative Mr. [...] discussion of perhaps a cardiomyopathy. No h/o CT. Patient had a prior drinking history many years ago.Current smoker, several cigarettes per day down from 2 packs/day. [facility] Work Phone: 03-05-2021 History of Present illness Narrative Mr. [...] discussion of perhaps a cardiomyopathy. No h/o CT. Patient had a prior drinking history many years ago. Current smoker, several cigarettes per day down from 2 packs/day. [facility] Work Phone: Evaluation + Plan note Future Appointments Appointment Date:05/17/2024 02:40:00 PM Scheduled Provider:Lexie Blanc Location:[facility] Appointment Type:[facility] General Surgery [place] Evaluation note Diagnosis Cigarette nicotine dependence with nicotine-induced disorder- Primary Chronic respiratory failure with hypoxia, on home O2 therapy (CMS/HCC) Centrilobular emphysema (CMS/HCC) Lung nodule Other diseases of lung, not elsewhere classified documented in this encounter [facility] Work Phone: Hospital course Narrative No data available for this section [facility] General Surgery [place] [facility] Discharge instructions No data available for this section [facility] Surgery [place] Progress note No data available for this section [facility] [place] Summary Purpose Family History No Family History [...] section and content) DATE CREATED AUTHOR 12/16/2021 [facility] DATE CREATED AUTHOR AUTHOR'S ORGANIZ ATION 12/28/2021 [facility] DATE CREATED AUTHOR AUTHOR'S ORGANIZ ATION 06/06/2022 [facility] DATE CREATED AUTHOR AUTHOR'S ORGANIZ ATION 07/02/2022 [facility] DATE CREATED AUTHOR AUTHOR'S ORGANIZ ATION 09/28/2022 [facility] DATE CREATED AUTHOR AUTHOR'S ORGANIZ ATION 04/15/2023 [facility] DATE CREATED AUTHOR AUTHOR'S ORGANIZ ATION 05/04/2023 [facility] DATE CREATED AUTHOR AUTHOR'S ORGANIZ ATION 07/17/2023 [facility] DATE CREATED AUTHOR AUTHOR'S ORGANIZ ATION 05/18/2024 [facility] DATE CREATED AUTHOR AUTHOR'S ORGANIZ ATION 05/26/2024 [facility] Care Teams (unrecognized sec tion and content) Feeder Driver Relationship Specialty Start Date End Date Eloy Bansal MD [address] Ritchie MD [facility] [place] [address] PCP - General 05/13/22 FOR RECORDS PERTAINING [...] BE BASED ON THE PRIMARY CLINICAL RECORDS. [facility] provides no warranty or guarantee of the accuracy or completeness of information in this document.
== END 2024-06-12 14:29 | disposition home or self-care (01) ==
LOC: CT 14:28
PROVIDERS: Visit Provider Internal Medicine
DX: F17.219 Nicotine dependence, cigarettes, with unspecified nicotine-induced disorders (principal)
CPT/HCPCS: 71271

== ENCOUNTER 2024-08-08 14:01 | Outpatient (OUT) | payer OTHER, SELFPAY ==
[2024-08-08 14:26] LABS: Basophils Absolute Auto 0.1 10^3/uL (0.0-0.1); Basophils Percent Auto 0.7 % (0.2-2.0); Hematocrit 45.4 % (42.0-54.0); Hemoglobin 15.3 g/dL (14.0-18.0); Immature Granulocytes Abs Auto 0.01 10^3/uL (0.00-0.03); Immature Granulocytes Pct Auto 0.1 % (0.0-0.5); Lymphocytes Absolute Auto 1.2 10^3/uL (1.2-3.8); Lymphocytes Percent Auto 17.8 % (20.5-60.0); Mean Corpuscular HGB Conc 33.7 g/dL (29.9-35.2); Mean Corpuscular Hemoglobin 31.4 pg (25.9-34.0); Mean Platelet Volume 10.3 fL (9.5-13.5); Monocytes Absolute Auto 0.5 10^3/uL (0.3-0.8); Monocytes Percent Auto 7.9 % (1.7-12.0); Neutrophils Percent Auto 73.5 % (43.0-75.0); Platelet Count 216 10^3/uL (150-450); Red Blood Count 4.88 10^6/uL (4.70-6.10); Red Cell Distribution Width 12.9 % (11.0-15.0); White Blood Count 6.9 10^3/uL (4.0-11.0)
[2024-08-08 14:36] LABS: Anion Gap 7.2; Calcium 8.8 mg/dL (8.5-10.1); Carbon Dioxide 32.5 mmol/L (21.0-32.0); Chloride 105 mmol/L (98-107); Estimated GFR (African America >60 (>=60 mL/min/1.73m^2); Estimated GFR (Non-African Ame >60 (>=60 mL/min/1.73m^2); Glucose 108 mg/dL (74-106); Potassium 3.7 mmol/L (3.5-5.1); Sodium 141 mmol/L (136-145)
[2024-08-08 14:39] LABS: INR 1.01; Prothrombin Time 10.7 sec (9.0-11.6)
== END 2024-08-08 14:02 | disposition home or self-care (01) ==
LOC: LAB 14:03
DX: K80.20 Calculus of gallbladder without cholecystitis without obstruction (principal); R23.3 Spontaneous ecchymoses
CPT/HCPCS: 36415; 80048; 85025; 85610

== ENCOUNTER 2025-01-15 14:07 | Outpatient (OUT) | payer OTHER, SELFPAY ==
--- NOTE | 2025-01-15 14:00 | CA_ITS ---
Patient Name: ZENA METZGER MR#: [id number] : 1960 Exam Date: 01/15/2025 Ordering Doctor: DR CARLEEN HECTOR M.D. ECHOCARDIOGRAM REPORT PROCEDURE: CA ECHO DOPPLER COMPLETE INDICATIONS: Heart failure with reduced ejection fraction, hypertension, smoker, COPD COMPARISON: None. DESCRIPTION: COMPLETE ECHOCARDIOGRAM Real-time transthoracic echocardiography with 2D, M-mode, spectral and color flow Doppler performed. QUALITY: Technical quality was good. LEFT VENTRICLE: Normal chamber size. Normal left ventricular wall thickness. LV EF: Global left ventricular systolic function appears mildly reduced; visually estimated ejection fraction is 45-50%. No significant wall motion abnormalities. DIASTOLIC: Unable to assess diastolic function. ATRIAL SEPTUM: Visually appears intact. LEFT ATRIUM: Normal chamber size. RIGHT ATRIUM: Normal chamber size. RIGHT VENTRICLE: Normal chamber size. Normal right ventricular systolic function. TRICUSPID VALVE: Normal mobility and thickness. No stenosis with no regurgitation. Unable to assess right-sided pressures due to lack of measurable tricuspid regurgitation. MITRAL VALVE: Normal mobility and thickness. No evidence of mitral valve stenosis. There is no mitral annular calcification. Mild mitral regurgitation. AORTIC VALVE: Normal trileaflet appearance. No visible sclerosis. Normal leaflet mobility. No evidence of aortic valve stenosis. No aortic regurgitation. AORTIC ROOT: Normal diameter and appearance. Ascending aorta is normal in size. PULMONIC VALVE: Normal thickness and mobility. No stenosis. No regurgitation. PERICARDIUM: Anterior free space; trivial effusion versus fat pad. IVC: Collapses with inspirations. IVC is normal in size. CONCLUSION: 1. Global left ventricular systolic function appears mildly reduced; visually estimated ejection fraction is 45-50% 2. Normal right ventricular size and systolic function 3. Unable to assess diastolic function 4. The left atrium is normal in size 5. Mild mitral regurgitation 6. Anterior free space; trivial effusion versus fat pad Adult Echocardiography Procedure Report Left Ventricle LVEDD (3.7 - 5.6 cm): 5.35 cm LVESD (2.2 - 4.0 cm): 4.41 cm LVIVS thickness (0.6 - 1.2 cm): 0.86 cm LVPW thickness (0.5 - 1.0 cm): 0.79 cm e': 0.06 m/s E - e': 7.37 LVOT Max Gradient: 1.98 mm[Hg] LVOT Area (cm2): 0.70 m/s Peak Velocity (LVOT): 0.70 m/s Mean Velocity (LVOT): 0.50 m/s LVOT Diameter 2.43 cm Left Atrium LA Volume Index (2D A2C): 19.96 ml/m2 Left Atrium Systolic Dimension: 3.80 cm Mitral Valve MV E to A Ratio: 0.60 Mitral Valve A-Wave Peak Velocity: 0.77 m/s Mitral Valve E-Wave Peak Velocity: 0.46 m/s Right Ventricle Aorta AO Root Diam: 3.31 cm Ascending Ao Diam: 3.24 cm Aortic Valve AoV Area (Peak Emir): 2.94 cm2, 2.94 cm2 AoV Area (VTI): 3.39 cm2, 3.39 cm2 Peak Velocity(Antegrade Flow): 1.11 m/s Peak Gradient(Antegrade Flow): 4.91 mm[Hg] Mean Velocity(Antegrade Flow): 0.73 m/s Mean Gradient(Antegrade Flow): 2.48 mm[Hg] Velocity Time Integral: 18.11 cm Tricuspid Valve Pulmonic Valve Mean Gradient: 1.65 mm[Hg] Mean Velocity: 0.61 m/s Peak Velocity: 0.87 m/s, 0.86 m/s Peak Gradient: 2.96 mm[Hg], 3.06 mm[Hg] Right Atrium Right Atrium Systolic Pressure: 41.52 ml, 41.52 ml Dictated by: Neel Lu M.D. on 01/16/2025 at 15:42 Approved by: Neel Lu M.D. on 01/16/2025 at 15:47
== END 2025-01-15 14:08 | disposition home or self-care (01) ==
LOC: CARD 14:07
PROVIDERS: Visit Provider Internal Medicine Interventional Cardiology
DX: I50.32 Chronic diastolic (congestive) heart failure (principal)
CPT/HCPCS: 93306

== ENCOUNTER 2025-02-15 23:11 | Emergency (ER) | payer OTHER, SELFPAY ==
--- OUTSIDE RECORDS SUMMARY | 2024-09-24 12:10 | XMS_ITS ---
Author Organization The [facility] Ma in [place] Address [address] [place] [address] Care Team Providers Care Paper Reclaiming Machine Operator Name Role Phone Luiz Sue MD Primary Care Provider Shade De Anda [phone] REASON FOR VISIT Appointment Reschedule Encounters Encounter Location Date Provider Diagnosis Pulmonary Medicine [place] [address] [place] [address] 09/24/2024 Shade Nuñez Plan Of Treatment Next Appt Details Provider Name:Shade Nuñez, 06/25/2025 01:00:00 PM, [address] [place], [address], Progress Notes * Mike METZGER HDOB:1960 (63 yo M)Acc No.[id number]:09/24/2024 Patient: Meliton Mike CALI :1960 A ge:63 Y S ex:Male Address:[address] [place] [address], [address] * true * Date: Generated for Maximei krista/Lizz/eTransmitting on: 0 02/15/2025 11:16 PM EDT
--- OUTSIDE RECORDS SUMMARY | 2024-10-10 06:30 | XMS_ITS ---
Author Organization The [facility] in [place] Address [address] [place] [address] Care Team Providers Care Supervisor Fish Bait Processing Name Role Phone Luiz Sue MD Primary Care Provider Shade De Anda Unavailable [phone] REASON FOR VISIT 6m COPD Encounters Encounter Location Date Provider Diagnosis Pulmonary Medicine [place] [address] [place] [address] 10/10/2024 Shade Nuñez Plan Of Treatment Next Appt Details Provider Name:Shade Nuñez, 06/25/2025 01:00:00 PM, [address] [place], [address], Progress Notes * Mike METZGER HDOB:1960 (64 yo M)Acc No.[id number]:10/10/2024 UNLOCKED PROGRESS NOTE Follow Up Patient: Meliton MODIMAGO Mike Natarajan Provider: Antonio Nuñez DO :1960 A ge:63 Y S ex:Male Date:10/10/2024 Address:[address] [place], [place] [address] Pcp:Luiz Sue MD Subjective: * Chief Complaints: * 1 . 6m COPD. * Medical History: Objective: * Vitals: Assessment: Plan: * Treatment: * * Electronic signature of Vandana Nuñez DO on 02/15/2025 at 11:16 PM EDT Sign off status: Pending Visit Status: R /S By O/P (Rescheduled by Office/Provider) * Provider: Antonio Nuñez, Date: 0 10/10/2024 Generated for Prabhakar velasco/Lizz/Merrill on: 0 02/15/2025 11:16 PM EDT
--- OUTSIDE RECORDS SUMMARY | 2024-10-17 10:00 | XMS_ITS ---
Author Organization [facility] [place] Address [address] [place] [address] Care Team Providers Care Java Programmer Name Role Phone Luiz Sue MD Primary Care Provider Shade De Anda [phone] Allergies No Known Allergies REASON FOR VISIT [...] Encounter Location Date Provider Diagnosis Pulmonary [facility] [place] [address] [place] [address] 10/17/2024 Shade Nuñez Multiple pulmonary nodules R91.8 ; Centrilobular emphysema J43.2 ; Chronic respiratory failure with hypoxia J96.11 ; Cigarette nicotine dependence with nicotine-induced disorder F17.219 ; Encounter for screening for malignant neoplasm of respiratory organs Z12.2 and MCC (current) use of inhaled steroids Z79.51 Assessments [...] respiratory failure with hypoxia (ICD-10 - J96.11) Msmu-hf-vxyl encounter performed with the patient to document [...] cessation/continued tobacco abstinence. LDCT due 06/2025. 10/17/2024 MCC (current) use of inhaled steroids (ICD-10 - [...] current treatment. Chronic respiratory failure with hypoxia Knal-te-wymj encounter performed with the patient to document [...] smoking cessation/continued tobacco abstinence. LDCT due 06/2025. MCC (current) use of i nhaled steroids Patient was counseled to rinse & gargle with water after inhaled corticosteroid use. Future Test Test Name Order Date CT Chest Low Dose for Screening* 025 Next Appt Details Follow Up: 8 Months, Reason: COPD, LDCT review Provider Name:Shade Nuñez, 06/25/2025 01:00:00 PM, [address] [place], [address], Procedure Notes * Category Sub-Category Detail Notes PFT Data: 05/23/2024-FEV1/F VC: 49%:-FEV1: 36%-FVC: 55%-XBO18-86%: 18%-Bronchodilator response: Positive-RV: 218%-T%-DLCO: 54%-Flow-volume loop: Severe obustruction05/21/2022-FEV1/FVC: 42%:-FEV1: 32%-FVC: 58%-HTC06-39%: 14%-Bronchodilator response: Positive-RV: 215%-T%-DLCO: 51%-Flow-volume loop: Severe obustruction09/14/2018-FEV1/FVC: 48%-FEV1: 40%-FVC: 63%-RMH19-21%: 17%-Bronchodilator response: Positive-RV: 187%-T%-DLCO: 64%-Flow-volume loop: Severe obustruction Progress Notes * Mike METZGER HDOB:1960 (63 yo M)Acc No.[id number]:10/17/2024 Follow Up Patient: Leopoldo HIDALGOneth H Provider: Antonio Nuñez DO :1960 A ge:63 Y S ex:Male Date:10/17/2024 Address:[address] [place], [place] [id number] Pcp:Luiz Sue MD Check In:01:50 PM ESTCheck [...] had his LDCT performed on 06/12/2024 at [facility]. Patient wears 1.5L O2 at home. DME: [facility]. Patient admits to smoking 6 cigarettes per day. Patient states his breathing is unchanged since his last visit. Patient had a Cholecystomy on 08/10/2024 at [facility]. Patient is using Dulera & Spiriva daily with b enefit. Patient reports using Albuterol five times per day. Patient is under the care of [facility] Cardiology. 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 Modified On:02/21/2023U Status:confirmed I25.10 Coronary artery dise ase Modified On:08/22/2023U Status:confirmed J30.9 Allergic rhinitis Modified On:08/22/2023 Status:confirmed [...] tablet Orally Once a day Spiriva Respimat(Tiotropium Saxe Monohydrate) 2.5 MCG/ACT Aerosol Solution 2 puffs [...] Orally Once a day Taking Spiriva Respimat(Tiotropium Saxe Monohydrate) 2.5 MCG/ACT Aerosol Solution 2 puffs Inhalation QD DiscontinuedNystatin 248012 UNIT/ML Suspension 4 mL Mouth/Throat Four times a day Pantoprazole Sodium 40 MG Tablet Delayed Release Oral PriLOSEC OTC(Omeprazole Magnesium) 20 MG Tablet Delayed Release 1 tablet 30 minutes before morning meal Orally Once a day Discontinued Nystatin 444215 UNIT/ML Suspension 4 mL Mouth/Throat Four times [...] C hronic respiratory failure with hypoxia Notes: Cmrx-ul-psqi encounter performed with the patient to document [...] 05/23/2024 -FEV1/FVC: 49%: -FEV1: 36% -FVC: 55% -QYG90-97%: 18% -Bronchodilator response: Positive -RV: 218% -T% -DLCO: 54% -Flow-volume loop: Severe obustruction 05/21/2022 -FEV1/FVC: 42%: -FEV1: 32% -FVC: 58% -NBV75-74%: 14% -Bronchodilator response: Positive -RV: 215% -T% -DLCO: 51% -Flow-volume loop: Severe obustruction 09/14/2018 -FEV1/FVC: 48% -FEV1: 40% -FVC: 63% -IPO34-11%: 17% -Bronchodilator response: Positive -RV: 187% -T% [...] 10/17/2024 Generated for Prabhakar Oswald/Raeitting on: 0 02/15/2025 11:17 PM EDT History and Physical Notes * HPI (History of Present Illness) Category Sub-Category Detail Notes Category Not es General Patient present s for a follow-up for COPD. Patient had his LDCT performed on 06/12/2024 at [facility]. Patient wears 1.5L O2 at home. DME: [facility]. Patient admits to smoking 6 cigarettes per day. Patient states his breathing is unchanged since his last visit. Patient had a Cholecystomy on 08/10/2024 at [facility]. Patient is using Dulera & Spiriva daily with benefit. Patient reports using Albuterol five times per day. Patient is under the care of [facility] Cardiology. Examination Category Sub-Category Detail Notes Category Not es Exam GENERAL APPEARANCE: Appears stated age Skin Normal Mouth [place] and moist. No c andidiasis Trachea Midline [...]
[2025-02-15] VITALS (8 sets, daily range): BP systolic 82–110; BP diastolic 54–61; PULSE 81–103; TEMP 37.1; O2SAT 94–98; BMI 23.4
--- NOTE | 2025-02-15 23:17 | ECG_ITS ---
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 Measurements Intervals [place] Rate: 99 P: 74 MO: 142 QRS: 89 QRSD: 92 T: 76 QT: 324 QTc: 380 Interpretive Statements 1100 Sinus rhythm 1574 with frequent ventricular premature complexes 9140 abnormal rhythm ECG Compared to ECG 10/12/2021 18:30:07 Ventricular premature complex(es) now present Electronically Signed On 02-17-2025 8:41:22 EDT by CARLEEN HECTOR M.D.
--- OUTSIDE RECORDS SUMMARY | 2025-02-15 23:17 | XMS_ITS | Clinical Summary ---
Author Organization [facility] Address [id number] [address] [place] [address] Care Team Providers Care Machine Stripper Cutter Name Role Phone Mel Bansal MD Primary Care Provider [phone] Allergies No known active allergies Medications albuterol (PROVENTIL HFA;VENTOLIN HFA) 90 mcg/actuation inhaler Inhale 2 puffs every 4 (four) hours as needed. 05/14/2021 Active DULERA 200-5 mcg/actuation inhaler Inhale 2 puffs 2 (two) times a day. 05/11/2021 Active SPIRIVA RESPIMAT 2.5 mcg/actuation mist Inhale 2 puffs daily. 05/10/2021 Active ascorbic acid, vitamin C, (vitamin C) 1000 mg tablet Take 1,000 mg by mouth daily. Active oxygen Inhale continuousl y. Active multivit-min/farida haroldo fumarate (MULTI VITAMIN ORAL) Take by mouth. Active Active Problems No known active problems Family History Medical History Relation Name Comments Heart disease Father Cancer Mother Ovarian cancer Mother Relation Name Status Comments Father Mother Social History Tobacco Use Types Packs/Day Years Used Date Smoking Tobacco: Every Day Cigarettes Smokeless Tobacco: Never Comments:6-8 cigarettes a da y Alcohol Use Standard Drinks/Week Comments Not Currently 0 (1 standard drink = 0.6 oz pur e alcohol) Childcare Answer Date Recorded Childcare Unknown 02/14/2019 Employment Answer Date Recorded Employment Unknown 02/14/2019 Sex and Gender Information Value Date Recorded Sex Assigned at Not on file Legal Sex Male 12:06 PM EDT Gender Identity Not on file Sexual Orientation Not on file Last Filed Vital Signs Vital Sign Reading Time Taken Comments Blood Pressure 100/60 07/20/2021 3:08 PM EST Pulse - - Temperature 36.3 C (97.3 F) 07/20/2021 3:08 PM EST Respiratory Rate - - Oxygen Saturation - - Inhaled Oxygen Concentration - - Weight 76.9 kg (169 lb 9.6 oz) 07/20/2021 3:08 P M EST Height 182.9 cm (6') 07/20/2021 3:08 PM EST Body Mass Index 23 07/20/2021 3:08 PM EST Plan of Treatment Health Maintenance Due Date Last Done Comments Depression Screening 1972 Tobacco Screening 1972 Adult BMI Screening 1978 DTaP,Tdap and Td Vaccines (1 - Tdap) 11/08/1979 Zoster (Shingles) Vaccine (1 of 2) 2010 Influenza Vaccine 05/06/2025 Medical Devices Not on file Insurance [employer] Care Teams Machine Stripper Cutter Relationship Specialty Start Date End Date Mel Bansal MD PCP - General Family Medicine 05/08/21
--- OUTSIDE RECORDS SUMMARY | 2025-02-15 23:17 | XMS_ITS | Clinical Summary ---
Author Organization [facility] Address [address] [place] [address] Phone Care Team Providers Care Tenter Frame Operator Name Role Phone Mel Bansal MD Primary Care Provider Allergies No known active allergies Medications tiotropium (Spiriva Respimat) 2.5 mcg/actuation inhaler Inhale 2 puffs once daily. Active sacubitriL-vals loretta (Entresto) 24-26 mg tablet Take 1 tablet by mouth once daily. Active mometasone-form oterol (Dulera) 200-5 mcg/actuation inhaler Inhale 2 puffs 2 times a day. Active metoprolol succinate XL (Toprol-XL) 25 mg 24 hr tablet Take 1 tablet (25 mg) by mouth once daily. Active meclizine (Antivert) 25 mg tablet Take by mouth. TAKE DIRECTED. Active ipratropium-alb uteroL (Duo-Neb) 0.5-2.5 mg/3 mL nebulizer solution Take 3 mL by nebulization every 4 hours if needed. Active empagliflozin (Jardiance) 10 mg Take 1 tablet (10 mg) by mouth once daily. Active atorvastatin (Lipitor) 40 mg tablet Take 1 tablet (40 mg) by mouth once daily. Active aspirin 81 mg EC tablet Take 1 tablet (81 mg) by mouth once daily. Active ascorbic acid (Vitamin C) 1,000 mg tablet Take 1 tablet (1,000 mg) by mouth once daily. Active albuterol (ProAir HFA) 90 mcg/actuation inhaler Inhale 2 puffs every 4 hours if needed. Active Active Problems Problem Noted Date Diagnosed Date CAD (coronary artery disease) 07/10/2023 Centrilobular emphysema (Multi) 07/10/2023 Cholelithiasis without cholecystitis 07/10/2023 Chronic respiratory failure with hypoxia, on home O2 therapy 07/10/2023 Cigarette nicotine dependenc e with nicotine-induced disorder 07/10/2023 Hypothyroid 07/10/2023 Lung nodule 07/10/2023 Overt chronic systolic congestive heart failure 07/10/2023 Rhinitis, allergic 07/10/2023 Family History Medical History Relation Name Comments cardiac disorder Father malignant neoplasm Mother Relation Name Status Comments Father Alive Mother Social History Tobacco Use Types Packs/Day Years Used Date Smoking Tobacco: Every Day Cigarettes Tobacco Cessation:Ready to Q uit: Not Asked; Counseling Given: Not Answered Sex and Gender Information Value Date Recorded Sex Assigned at Not on file Legal Sex Male 2:48 PM EST Gender Identity Not on file Sexual Orientation Not on file Last Filed Vital Signs Vital Sign Reading Time Taken Comments Blood Pressure 107/69 05/13/2022 10:53 AM EDT Pulse 109 05/13/2022 10:53 AM EDT Temperature 36.2 C (97.1 F) 05/13/2022 10:53 AM EDT Respiratory Rate 16 05/13/2022 10:53 AM EDT Oxygen Saturation 94% 05/13/2022 10:53 AM EDT Inhaled Oxygen Concentration - - Weight 77 kg (169 lb 12.1 oz) 06/28/2022 9:45 AM EDT Height 182.8 cm (5' 11.97 ) 06/28/2022 9:45 AM E DT Body Mass Index 23.04 06/28/2022 9:45 AM EDT Plan of Treatment Health Maintenance Due Date Last Done Comments CT Colonography 1960 Colonoscopy 1960 Colorectal Cancer Screening 1960 Creatinine Level 1960 Echocardiogram 1960 FIT-DNA (Cologuard) 1960 FIT 1960 HIV Screening 1960 Lipid Panel 1960 Potassium Level 1960 Sigmoidoscopy 1960 TSH Level 1960 Yearly Adult Physical 1960 MMR Vaccines (1 of 1 - Stand cassidy series) 1961 Hepatitis C Screening 1978 Pneumococcal Vaccine (1 of 2 - PCV) 11/08/1979 DTaP/Tdap/Td Vaccines (1 - Tdap) 1982 Zoster Vaccines (1 of 2) 2010 RSV High Risk: (Elderly (60+ ) or Population) (1 - Risk 60-74 years 1-dose series) 2020 COVID-19 Vaccine (1 - 2023-2 5 season) 2024 Influenza Vaccine (Season Ended) 2025 Diabetes Screening 08/10/2025 08/10/2024 HIB Vaccines Aged Out No longer eligi ble based on patient's age to complete this topic HPV Vaccines Aged Out No longer eligi ble based on patient's age to complete this topic Hepatitis A Vaccines Aged Out No long er eligible based on patient's age to complete this topic Hepatitis B Vaccines Aged Out No long er eligible based on patient's age to complete this topic IPV Vaccines Aged Out No longer eligi ble based on patient's age to complete this topic Meningococcal Vaccine Aged Out No carmen ino eligible based on patient's age to complete this topic Rotavirus Vaccines Aged Out No longer eligible based on patient's age to complete this topic Insurance [employer] Care Teams Tenter Frame Operator Relationship Specialty Start Date End Date Mel Bansal MD [address] [place] [address] PCP - General 05/13/22
--- OUTSIDE RECORDS SUMMARY | 2025-02-15 23:17 | XMS_ITS | Referral Summary ---
Author Organization [facility] Address [address] [place] [address] Care Team Providers Care Slip Cover Maker Name Role Phone Lexie Douglas BROACH TROUBLE SHOOTER-C Primary Care Provider [phone] Encounters Date Type Department Care Team Description 01/21/[address] [address] Bhavna Watkins MA 11/30/2024 2:15 PM EDT Office Visit [facility] [address] [place] [address] Reji Valdez MD Heart failure with improved ejection fraction (HFimpEF) (CMS/FORMERLY [facility]) (Primary Dx); Coronary artery disease involving hoopa coronary artery of hoopa heart without angina pectoris; Shortness of breath from Last 3 Months Allergies No known active allergies Medications albuterol 90 mcg/actuation inhaler INHALE 2 PUFFS BY MOUTH EVERY 4 HOURS NEEDED FOR SHORTNESS OF BREATH 1 Active aspirin 81 mg EC tablet Take 1 tablet every day by oral route. Active meclizine (Antivert) 25 mg tablet TAKE 1 TABLET BY MOUTH EVERY 6 HOURS NEEDED FOR DIZZINESS 2 Active mometasone-form oterol (Dulera 200) 200-5 mcg/actuation inhaler INHALE 2 PUFFS BY MOUTH TWICE A DAY *RINSE MOUTH AFTER USE* 1 Active ascorbic acid (Vitamin C) 1,000 mg tablet Take 1,000 mg by mouth in the morning. Active pantoprazole (ProtoNix) 40 mg EC tablet Take 40 mg by mouth before breakfast. Do not crush, chew, or split. Active famotidine (Pepcid) 20 mg tablet Take 20 mg by mouth two times daily. Active oxygen (O2) gas Inhale 1.5 L/min at bedtime. via nasal canula Active sacubitril-vals loretta (Entresto) 24-26 mg tabletIndicatio ns:Heart failure with improved ejection fraction (HFimpEF) (CMS/HCC) Take 0.5 tablets by mouth two times daily. 90 tablet 3 5 12/01/19 26 Active metoprolol succinate XL (Toprol-XL) 25 mg 24 hr tabletIndicatio ns:Heart failure with improved ejection fraction (HFimpEF) (CMS/HCC) Take 0.5 tablets (12.5 mg) by mouth in the morning. Do not crush or chew. 45 tablet 3 5 12/01/19 26 Active atorvastatin (Lipitor) 40 mg tabletIndicatio ns:Coronary artery disease involving hoopa coronary artery of hoopa heart without angina pectoris Take 1 tablet (40 mg) by mouth in the morning. 90 tablet 3 5 12/01/19 26 Active Active Problems Problem Noted Date Diagnosed Date Abdominal pain, right upper quadrant 11/30/2024 Acid reflux 11/30/2024 BMI 25.0-25.9,adult 11/30/2024 Hyperlipidemia 11/30/2024 Hypertension 11/30/2024 Overweight 11/30/2024 Smoker 11/30/2024 Calculus of gallbladder with out cholecystitis without obstruction 08/07/2024 Assessment & Plan (08/10/2024 1:19 PM EST): Relevant Hx: CAD, CHF Course: stable, controlled Daily Update: none Today's Plan: Laparoscopic cholecystectomy, possible cholangiogram Orders from past 72 hours: Full Code; Standing ceFAZolin in dextrose (iso-os) (Ancef) IVPB 2 g Full Code Rhinitis, allergic 07/10/2023 11/21/2023 Lung nodule 07/10/2023 11/21/2023 Cigarette nicotine dependenc e with nicotine-induced disorder 07/10/2023 11/21/2023 Chronic respiratory failure with hypoxia, on home O2 therapy 07/10/2023 11/21/2023 Cholelithiasis without cholecystitis 07/10/2023 11/21/2023 Centrilobular emphysema 07/10/2023 11/21/19 24 Impotence 04/21/2023 04/21/2023 Chronic obstructive lung disease 04/21/2023 04/21/2023 Hypothyroidism 04/21/2023 04/21/2023 Induration penis plastica 04/21/20232022 Right inguinal hernia 04/21/2023 04/21/2023 Chronic systolic congestive heart failure 2022 Overview (10/25/2022): recovered EF Coronary artery disease invo lving hoopa coronary artery of hoopa heart without angina pectoris 10/25/2022 Social History Tobacco Use Types Packs/Day Years Used Date Smoking Tobacco: Every Day Cigarettes Tobacco Cessation:Ready to Q uit: Not Asked; Counseling Given: Not Answered Alcohol Use Standard Drinks/Week Comments Not Currently 0 (1 standard drink = 0.6 oz pur e alcohol) 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 No 06/26/2024 Emotionally Abused Not on file 06/26/2024 Physically Abused Not on file 06/26/2024 Sexually Abused Not on file 06/26/2024 PHQ-2 Answer Date Recorded Patient Health Questionnaire-2 Score 0 06/26/2024 Sex and Gender Information Value Date Recorded Sex Assigned at Not on file Legal Sex Male 10:28 PM EDT Gender Identity Not on file Sexual Orientation Not on file Last Filed Vital Signs Vital Sign Reading Time Taken Comments Blood Pressure 107/66 11/30/2024 2:22 PM EDT Pulse 87 11/30/2024 2:22 PM EDT Temperature 36.6 C (97.8 F) 08/22/2024 2:09 PM EST Respiratory Rate 10 08/10/2024 5:30 PM EST Oxygen Saturation 92% 11/30/2024 2:22 PM EDT Inhaled Oxygen Concentration - - Weight 74.8 kg (165 lb) 11/30/2024 2:22 PM EDT Height 182.9 cm (6') 11/30/2024 2:22 PM EDT Body Mass Index 22.38 11/30/2024 2:22 PM EDT Plan of Treatment Not on file Insurance [employer] [place] [employer] Advance Directives * Full Code (Latest Code Status on File) Date Activated Date Inactivated Comments 08/10/2024 1:09 PM 08/10/2024 8:08 PM Care Teams Slip Cover Maker Relationship Specialty Start Date End Date Lexie Douglas FNP-C [address] [place] [address] PCP - General Nurse Practitioner 06/26/24
--- OUTSIDE RECORDS SUMMARY | 2025-02-15 23:17 | XMS_ITS | Clinical Summary ---
Author Organization [facility] Address [address] [place] [address] Care Team Providers Care Hvac Design Mechanical Engineer Name Role Phone Lexie Douglas SENIOR JAVA DEVELOPER-C Primary Care Provider [phone] Allergies No known active allergies Medications albuterol [...] 40 mg tabletIndicatio ns:Coronary artery disease involving kotzebue coronary artery of k[place]zebue heart without angina pectoris Take 1 tablet [...] recovered EF Coronary artery disease invo lving kotzebue coronary artery of k[place] heart without angina pectoris 10/25/2022 Encounters Date Type Department Care Team Description 01/21/2025 Refill [facility] [address] [place] [address] Bhavna Watkins MA 11/30/2024 2:15 PM EDT Office Visit [facility] [address] [place] [address] Reji Valdez MD Heart failure with improved ejection fraction (HFimpEF) ([facility]) (Primary Dx); Coronary artery disease involving kotzebue coronary artery of kotzebue heart without angina pectoris; Shortness of breath from Last 3 Months Family History Medical History Relation Name Comments Cancer Mother Relation Name Status Comments Mother Social History Tobacco Use Types Packs/Day [...] 11/30/2024 2:22 PM EDT Plan of Treatment Health Maintenance Due Date Last Done Comments CT Colonography 1960 Colonoscopy 1960 Colorectal Cancer Screening 1960 FIT-DNA 1960 FIT 1960 FOBT 1960 Sigmoidoscopy 1960 Pneumococcal Vaccine: Pediat rics (0 to 5 Years) and At-Risk Patients (6 to 64 Years) (1 of 2 - PCV) 11/08/1979 Adult Tetanus 1982 Zoster Vaccines (1 of 2) 2010 COVID-19 Vaccine ( - 2023-2 5 season) 2024 Influenza Vaccine (Season Ended) 2025 Depression Screening 06/26/2025 06/26/2024 HIB Vaccines Aged Out No longer eligi ble based on patient's age to complete this topic HPV Vaccines Aged Out No longer eligi ble based on patient's age to complete this topic IPV Vaccines Aged Out No longer eligi ble based on patient's age to complete this topic Meningococcal B Vaccine Aged Out No l onger eligible based on patient's age to complete this topic Meningococcal Vaccine Aged Out No carmen ino eligible based on patient's age to complete this topic Rotavirus Vaccines Aged Out No longer eligible based on patient's age to complete this topic Insurance [employer] [place] [employer] Advance Directives * Full Code (Latest Code Status on File) Date Activated Date Inactivated Comments 08/10/2024 1:09 PM 08/10/2024 8:08 PM Care Teams Hvac Design Mechanical Engineer Relationship Specialty Start Date End Date Lexie Douglas FNP-C [address] [place] [address] PCP - General Nurse Practitioner 06/26/24
--- OUTSIDE RECORDS SUMMARY | 2025-02-15 23:17 | XMS_ITS | Encounter Summary ---
Author Organization [facility] Address [address] [facility] [place] [address] Care Team Providers Care Anatomic Pathology Assistant Name Role Phone Misael Lexie KITCHEN AIDE-C Primary Care Provider [phone] Reason for Visit * Reason Comments Med Refill Encounter Details Date Type Department Care Team (Late st Contact Info) Description 03/06/2023 Refill [facility] Cardiology [address] [place] [phone] Saniya Askew, MANAGER CHANNEL [address] [place] [address] Acute on chronic systolic (congestive) heart failure (CMS/HCC) Social History Tobacco Use Types Packs/Day Years Used Date Smoking Tobacco: Every Day Cigarettes Sex and Gender Information Value Date Recorded Sex Assigned at Not on file Legal Sex Male 10:28 PM EDT Gender Identity Not on file Sexual Orientation Not on file documented as of this encounter Plan of Treatment Not on file documented as of this encounter Visit Diagnoses Diagnosis Acute on chronic systolic (congestive) heart failure (CMS/HCC) documented in this encounter Care Teams Anatomic Pathology Assistant Relationship Specialty Start Date End Date Lexie Douglas FNP-C [address] [place] [address] PCP - General Nurse Practitioner 06/26/24 documented as of this encounter
--- OUTSIDE RECORDS SUMMARY | 2025-02-15 23:17 | XMS_ITS | Patient Health Record ---
Author Organization [facility] [place] Address [address] [place] [address] Care Team Providers Care Print Cutter Name Role Phone Luiz Sue MD Primary Care Provider Tyshawn De Anda [phone] Allergies No Known Allergies Results Component Value Reference Range Notes HEMOGLOBIN Reviewed date:05/29/2024 07:58:05 AM Interpretation: Performing Lab: Notes/Report: [facility] , Hemoglobin 15.0 14.0-18.0 g/dL Performing Lab: see note ML - [facility] LB RT pulmonary function test Reviewed date:05/30/2024 07:00:28 AM Interpretation: Performing Lab: Notes/Report: Source Facility: [facility]-[address] [place] [address] [place] [address] Respiratory Report Signed Patient: ZENA METZGER MR#: [id number] : 1960 Acct:[id number] Age/Sex: 63 / M ADM Date: 05/23/24 Loc: CARD Attending Dr: Tyshawn Salmon D.O. Ordering Physician: Tyshawn Salmon D.O. Date of Service: 05/23/24 Procedure(s): RT pulmonary function test Accession Number(s): [id number] cc: [facility] Test Date: 2024-05-23 Pat Name: ZENA METZGER Department: Room: - Gender: Male Soot Blower: Mando Delacruz RRT : 1960 Requested By: Tyshawn Salmon Order Number: [id number] Reading MD: Tyshawn Salmon Interpretive Statements Pulmonary function testing was completed according to ATS criteria. Findings were considered accurate and reproducible. Both pre- and post-bronchodilator values utilized for spirometry. Spirometry (based on pre-bronchodilator values): -FEV1/FVC: Reduced @ 49% -FEV1: Severely reduced @ 36% -FVC: Normal @ 55% -There is a positive bronchodilator response in FVC. Lung volumes by plethysmography (based on pre-bronchodilator values): -RV: Increased @ 218% -TLC: Normal @ 112% Diffusion capacity: -DLCO: Moderately-severe reduction @ 54% when corrected for Hb 15g/dL Flow-volume loop: -Severe obstructive pattern Impressions: Spirometry suggests severe obstruction with a positive bronchodilator response. An elevated RV suggests air trapping. There is a moderately-severe reduced diffusion capacity. Overall study would be consistent with asthma-COPD overlap or COPD with a bronchodilator response. Clinical correlation required. Electronically Signed On 05-29-2024 16:47:21 EDT by Tyshawn Salmon Dictated By: Tyshawn Salmon D.O. Signed By: 05/29/24 1647 DD/ 1317 TD/TT: Mechanical Sound Technician: [place] [address] Respiratory Report Signed Patient: GORDY METZGER MR#: [id number] : 1960 Acct:[id number] Age/Sex: 63 / M ADM Date: 05/23/24 Loc: CARD Attending Dr: Tyshawn Salmon D.O. Ordering Physician: Tyshawn Salmon D.O. Date of Service: 05/23/24 Procedure(s): RT pulmonary function test Accession Number(s): [id number] cc: [facility] Test Date: 2024-05-23 Pat Name: ZENA SUAREZ Department: 12 Room: - Gender: Male Technic kit: Mando Delacruz RRT : 1960 Requ ested By: Tyshawn Salmon Order Number: [id number] Reading MD: Tyshawn Salmon Interpretive Statements Pulmonary function testing was completed according to ATS criteria. Findings were considered accu rate and reproducible. Both pre- and post-bronchodilator values utilized for spirometry. Spirometry (based on pre-bronchodilator values): -FEV1/FVC: Reduced @ 49% -FEV1: Severely redu lo @ 36% -FVC: Normal @ 55% -There is a positive bronchodilator response in FVC. Lung volumes by plethysmography (based on pre-bronchodilator values): -RV: Increased @ 218% -TLC: Normal @ 112% Diffusion capacity: -DLCO: Moderately-se lindsey reduction @ 54% when corrected for Hb 15g/dL Flow-volume loop: -Severe obstructive pattern Impressions: Spirometry suggests severe obstruction with a positive bronchodilator response. An elevate d RV suggests air trapping. There is a moderately-severe reduced diffusion capacity. Overall study would be consistent with asthma-COPD overlap or COPD with a bronchodilator response. Clinical correlation required. Electronically Chiara d On 05-29-2024 16:47:21 EDT by Tyshawn Salmon Dictated By: Antonio Salmon D.O. Signed By: 05/29/24 1647 DD/ 1317 TD/TT: Mechanical Sound Technician: CT lung screening low-dose Reviewed date:06/13/2024 10:05:09 AM Interpretation: Performing Lab: Notes/Report: Source Facility: [place] [address] CT Scan Report Signed Patient: ZENA METZGER MR#: [id number] : 1960 Acct:[id number] Age/Sex: 63 / M ADM Date: 06/12/24 Loc: CT Attending Dr: Tyshawn Salmon D.O. Ordering Physician: Tyshawn Salmon D.O. Date of Service: 06/12/24 Procedure(s): CT lung screening low-dose Accession Number(s): [id number] cc: Physician,Non-Staff [place] [address] Patient Name: ZENA METZGER MRN: [id number] date: 1960 Sex: M Assigned Patient Location: CT Current Patient Location: Accession/Order Number: [id number] Exam Date: 06/12/2024 14:39 Report Date: 06/13/2024 04:53 At the request of: TYSHAWN SALMON Procedure: CT lung screening low-dose EXAMINATION: CT lung screening low-dose HISTORY: Nicotine Dependence COMPARISON: CT chest 06/21/2023 TECHNIQUE: Axial, Coronal, and Sagittal images were created without the administration of IV contrast material. Dose reduction techniques were achieved by using automated exposure control and/or adjustment of mA and/or kV according to patient size and/or use of iterative reconstruction technique. FINDINGS: LUNGS: No suspicious pulmonary nodules. Mild emphysematous changes. No acute infiltrates. PLEURA: No mass, effusion, or pneumothorax. VASCULATURE: No abnormality. KM: No mass or pathologic adenopathy. MEDIASTINUM: No mass or pathologic adenopathy. CARDIAC: No enlargement, pericardial thickening, or pericardial effusion. Coronary Artery calcifications: Coronary calcifications are mild. AORTA: Developmental variant right side aortic arch. No aneurysm or dissection. CHEST WALL: No mass or axillary adenopathy BONES: No bone lesion or fracture. LIMITED ABDOMEN: No suspicious findings. Limited images of the upper abdomen. OTHER: Negative. CT/CT lung screening low-dose IMPRESSION: 1. Lung-RADS Category 1 Negative. No nodules and definitely benign nodules. Continue annual screening with LDCT in 12 months. Electronically authenticated by: AUSTYN DUQUE Date: 06/13/2024 04:53 Dictated By: Austyn Duque M.D. Signed By: 06/13/246 DD/ 2 TD/TT: Mechanical Sound Technician: [place] [address] CT Scan Report Signed Patient: GORDY METZGER MR#: [id number] : 1960 Acct:[id number] Age/Sex: 63 / M ADM Date: 06/12/24 Loc: CT Attending Dr: Tyshawn Salmon D.O. Ordering Physician: Tyshawn Salmon D.O. Date of Service: 06/12/24 Procedure(s): CT yolanda g screening low-dose Accession Number(s): [id number] cc: PhysicianJohnny M.D. [address] [address] Patient Name: ZENA METZGER MRN: [id number] date: 1960 Sex: M Assigned Patient Location: CT Current Patient Location: Accession/Order Numb er: [id number] Exam Date: 14:39 Report Date: 06/13/2024 04:53 At the request of: TYSHAWN SALMON Procedure: CT lung screening low-dose EXAMINATION: CT lung screening low-dose HISTORY: Nicotine Dependence COMPARISON: CT chest 06/21/2023 TECHNIQUE: Axial, Coronal, and Sagittal images were created without the administration of IV contrast material. Dose reduction techniques were achieved by using automated exposure control and/or adjustment of mA and/or kV according to patient size and/ or use of iterative reconstruction technique. FINDINGS: LUNGS: No suspicious pulmonary nodules. Mild emphysematous changes. No acute infiltrates. PLEURA: No mass, effusion, or pneumothorax. VASCULATURE: No abnormality. KM: No mass or pathologic adenopathy. MEDIASTINUM: No mass or pathologic adenopathy. CARDIAC: No enlargem ent, pericardial thickening, or pericardial effusion. Coronary Artery calcifications: Coronary calcifications are mild. AORTA: Developmental variant right side aortic arch. No aneurysm or dissection. CHEST WALL: No mass or axillary adenopathy BONES: No bone lesio n or fracture. LIMITED ABDOMEN: No suspicious findings. Limited images of the upper abdomen. OTHER: Negative. C T/CT lung screening low-dose IMPRESSION: 1. Lung-RADS Categor y 1 Negative. No nodules and definitely benign nodules. Continue annual scre ening with LDCT in 12 months. Electronically authenticated by: AUSTYN DUQUE Date: 06/13/2024 04:53 Dictated By: Austyn Duque M.D. Signed By: 06/13/24 0456 DD/ 2 TD/TT: Mechanical Sound Technician: CT Chest Low Dose for Screen ing* Reviewed date:06/13/2024 06:44:36 AM Interpretation: Performing Lab: Notes/Report: Reason For Referral No Information Medications Medication SIG (Take, Route, Frequency, Duration) Notes Start Date End Date Status Dulera 200-5 MCG/ACT 2 puffs Inhalation BID for 90 days Rinse after use Active Ipratropium-Albuterol 0.5-2.5 (3) MG/3ML 3mL Inhalation QID for 30 days Dispense 120 ampules Active Aspirin 81 MG 1 tablet Orally Once a day Active Albuterol Sulfate HFA 108 (90 Base) MCG/ACT 2 puffs as needed for SOB Inhalation Q4H for 90 days Active Entresto 24-26 MG 1 tablet Orally Twic e a day Active Atorvastatin Calcium 40 MG 1 tablet Oral ly Once a day Active Spiriva Respimat 2.5 MCG/ACT 2 puffs Inhalation QD for 90 days Active Meclizine HCl 25 MG 1 tablet as needed f or dizziness Orally every 6 hours for 30 days Active Metoprolol Succinate ER 25 MG 1 tablet Orally Once a day Active Social History Tobacco Use: Social History Observation Description Date Details (start date - stop date) Current Smoker NA - NA Tobacco Control (Standard) Question Answer Notes Tobacco use: Current every day smoker Additional Findings: Tobacco user Light cigarett e smoker (1-9 cigs/day) Problems Problem Type SNOMED Code ICD Code Onset Dates Problem Status W/U Status Risk Notes Problem Centrilobular emphysema (84566545) Centrilobular emphysema (J43.2) Active confirmed Dulera + Spiriva > Symbicort + Spiriva > Trelegy Problem Chronic respiratory failure (91240102) Chronic respiratory failure with hypoxia (J96.11) Active confirmed Problem Long-term current use of inhaled steroid (650519130) prison (current) use of inhaled steroids (Z79.51) Active confirmed Problem Coronary artery disease (87415637) Coronary artery disease (I25.10) Active confirmed Problem Allergic rhinitis (24833801) Allergic rhinitis (J30.9) Active confirmed Problem Chronic systolic heart failure (721804140) Chronic systolic congestive heart failure (I50.22) Active confirmed 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) Cigarette nicotine dependence with nicotine-induced disorder (F17.219) Active confirmed 2ppd x 44 years minimum Problem Multiple pulmonary nodules (595790820) Multiple pulmonary nodules (R91.8) Active confirmed Vital Signs Heart Rate 101 /min 10/17/2024 Temperature 96.9 degrees Fahrenheit 10/17/2024 Respiratory Rate 18 /min 10/17/2024 Oximetry 93 % 10/17/2024 Blood pressure diastolic 56 mm Hg 10/17/2024 Height 70 in 10/17/2024 Blood pressure systolic 113 mm Hg 10/17/2024 Weight 167.0 lbs 10/17/2024 BMI 23.96 kg/m2 10/17/2024 Procedures Procedure Date Ordered Date Performed Result Body Sit e PFT (61473, 59696, 10799) 05/14/2024 05/23/2024 N/A Encounters Encounter Location Date Provider Diagnosis Pulmonary Medicine [address] [address] 08/20/2024 [facility] Pulmonary [facility] [address] [place] [address] 09/24/2024 [facility] [address] [place] [address] 05/14/2024 [facility] Cholelithiasis K80.2 0 and Centrilobular emphysema J43.[address] [address] 05/30/2024 [facility] Pulmonary [facility] [address] [place] [address] 06/13/2024 [facility] Pulmonary [facility] [address] [place] [address] 06/05/2024 [facility] Encounter for preprocedural respiratory examination Z01.811 ; Centrilobular emphysema J43.2 ; Chronic respiratory failure with hypoxia J96.11 ; Multiple pulmonary nodules R91.8 and Cigarette nicotine dependence with nicotine-induced disorder F17.219 [facility] [address] [place] [address] 02/21/2024 [facility] Multiple pulmonary nodules R91.8 ; Centrilobular emphysema J43.2 ; Chronic respiratory failure with hypoxia J96.11 and Cigarette nicotine dependence with nicotine-induced disorder F17.219 Pulmonary [facility] [address] [place] [address] 10/17/2024 [facility] Multiple pulmonary nodules R91.8 ; Centrilobular emphysema J43.2 ; Chronic respiratory failure with hypoxia J96.11 ; Cigarette nicotine dependence with nicotine-induced disorder F17.219 ; Encounter for screening for malignant neoplasm of respiratory organs Z12.2 and intermission coordinator (current) use of inhaled steroids Z79.51 Assessments Encounter Date Diagnosis (ICD Code) Assessment Notes Treatment Notes Treatment Clinical Notes Section Notes 02/21/2024 Multiple pulmonary nodules (ICD-10 - R91.8) Nodules unchanged on chest CT 06/21/2023 - RADS-2. Next LDCT due is 06/2024. 02/21/2024 Centrilobular emphysema (ICD-10 - J43.2) Dulera + Spiriva > Symbicort + Spiriva > Trelegy Patient continues to have benefit with Dulera + Spiriva. As before, continues to require albuterol multiple times throughout the day, and I expect that to be his norm for as long as she smokes. Refilled inhalers. F/U 6 months or sooner PRN. 06/05/2024 Encounter for preprocedural respiratory examination (ICD-10 - Z01.811) Patient is to be scheduled to have a cholecystectomy for cholelithiasis that is worsening, but there is no set date as of this time. The patient has severe obstruction secondary to COPD and continues to smoke, though his PFT shows actual marginal improvement compared to 2 years ago. Explained that there is risk of perioperative respiratory failure, and he will be intubated for the procedure. Currently, I feel that he is optimized to proceed with surgery. He is doubling over in pain in the office grasping his right upper quadrant. He is still questioning proceeding with the surgery despite having pain; he states his apprehension is regarding respiratory failure. I feel proceeding with surgery now would have less pulmonary risk than waiting until he develops an acute abdomen such as choledocholithiasis requiring emergent surgery. Perioperatively, I recommend that he continue with his Dulera and Spiriva. He may require bronchodilators intraoperatively or postextubation. He does require O2 therapy at night. He develops acute hypoxic respiratory failure, he may be bridged with BiPAP. He was counseled to stop smoking to reduce his risk of both pulmonary failure and impaired wound healing. With these recommendations, I feel he is at an acceptable risk from a pulmonary standpoint to proceed with surgery. If surgery is delayed beyond 30 days of the time of this office visit, he may require reevaluation from a pulmonary standpoint. 06/05/2024 Centrilobular emphysema (ICD-10 - J43.2) Dulera + Spiriva > Symbicort + Spiriva > Trelegy Patient remains on Dulera and Spiriva with voice benefit. His DuoNeb use has decreased over the past several months to only 1-2 times a week. He continues to require albuterol HFA several times throughout the day. He was once again counseled on the importance of smoking cessation. No change in therapy 10/17/2024 Multiple pulmonary nodules (ICD-10 - R91.8) Nodules unchanged on chest CT 06/21/2023 - RADS-2. None identified on 06/12/2024. 05/14/2024 Cholelithiasis (ICD-10 - K80.20) Referred to Dr. Genao in 2020, last seen 07/20/2021; Originally Dr. Arguello recommended lap toni 05/20/2021, but patient did not remember the conversation. Dr. Genao recommended it again this date, pateint wanted to wait until 2021, but nothing ever came of it. 05/14/2024 Centrilobular emphysema (ICD-10 - J43.2) Dulera + Spiriva > Symbicort + Spiriva > Trelegy 10/17/2024 Centrilobular emphysema (ICD-10 - J43.2) Dulera + Spiriva > Symbicort + Spiriva > Trelegy Doing okay on Dulera + Spiriva. Continues to use albuterol up to 5 times a day. Paul discussion that his breathing will unlikely improve until he stops smoking, which he acknowledged. Continue current treatment. 10/17/2024 Chronic respiratory failure with hypoxia (ICD-10 - J96.11) Wqjp-nb-gsns encounter performed with the patient to document [...] requiring O2.-Recommendations: Continue using O2 @ HS. 06/05/2024 Chronic respiratory failure with hypoxia (ICD-10 - J96.11) Vmxv-bt-sxxr encounter performed with the patient to document continued need for supplemental oxygen (O2). -Qualifying study: Nocturnal pulse ox 08/01/2023 -Study findings: SpO2 <89% was 24.2% of sleep time (1:49:52) -Flow & directions: 2L/min @ HS-Patient voices adherence to recommended usage: He states he uses it every night.-Symptom control on O2: He does not have his fragmented sleep with using O2.-Counseled patient not begin, restart, or continue smoking, [...] to the point of requiring O2.-Recommendations: Continue O2 @ HS. 02/21/2024 Chronic respiratory failure with hypoxia (ICD-10 - J96.11) Dljw-wq-ulbk encounter performed with the patient to document continued need for supplemental oxygen (O2). -Qualifying study: Nocturnal pulse ox 08/01/2023 -Study findings: SpO2 <89% was 24.2% of sleep time (1:49:52) -Flow & directions: 2L/min @ HS-Patient voices adherence to recommended usage: Nightly use-Symptom control on O2: Continues to state he feels better sleeping with O2 on.-Counseled patient not begin, restart, or continue smoking, [...] to the point of requiring O2.-Recommendations: Continue O2 @ HS. 02/21/2024 Cigarette nicotine dependence with nicotine-induced disorder (ICD-10 - F17.219) 2ppd x 44 years minimum Discussed smoking cessation yet again. Currently smoking 1/4ppd. He voiced he is not ready to quit today. 06/05/2024 Multiple pulmonary nodules (ICD-10 - R91.8) Nodules unchanged on chest CT 06/21/2023 - RADS-2. Next LDCT due is 06/2024. 10/17/2024 Cigarette nicotine dependence with nicotine-induced disorder [...] smoking cessation/continued tobacco abstinence. LDCT due 06/2025. 06/05/2024 Cigarette nicotine dependence with nicotine-induced disorder (ICD-10 - F17.219) 2ppd x 44 years minimum Once again, I encouraged the patient to stop smoking. He continues to smoke at 1/4 pack a day. 10/17/2024 intermission coordinator (current) use of inhaled steroids (ICD-10 - Z79.51) Patient was counseled to rinse & gargle with water after inhaled corticosteroid use. Plan Of Treatment Next Appt Details Provider Name:Tyshawn Salmon, 06/25/2025 01:00:00 PM, [address] [place], [address], Insurance Providers Payer Name Payer Address Payer Phone Subscriber Number Group Number Insured Name Patient Relationship to Insured Coverage Start Date Coverage End Date [employer] [place] [employer] [address] [place] [phone] [id number] Zena Metzger Self - patient is the insured 3 Medical (General) History Medical History History ICD Code Centrilobular emphysema J43.2 Multiple pulmonary nodules R91.8 Chronic respiratory failure with hypoxia J96.11 Allergic rhinitis J30.9 Coronary artery disease I25.10 Chronic systolic congestive heart failur e I50.22 Hypothyroidism E03.9 Cigarette nicotine dependence with nicot ine-induced disorder F17.219 intermission coordinator (current) use of inhaled stero ids Z79.51 Surgical History Surgery Date(Month/Year) cyst removal right knee arthroscopy Lung Biopsy 06/29/2022 Cardiac Catheterization 12/21/2021 cholecystectomy 08/10/2024
--- OUTSIDE RECORDS SUMMARY | 2025-02-15 23:17 | XMS_ITS | CCD ---
Author Organization [facility] Care Team Providers Care Pasteurizer Helper Name Role Phone DIPESH, SANIYA M Admitting Unavailable DIPESH, SANIYA M Attending Unavailable SELF, REFERRED Referring Unavailable ELOY BANSAL Primary Care Unavailable Eloy Bansal Unavailable Clover, Dr. Celso Rico Attending Sandi vailaviola Nuñez, Dr. Tyshawn Dickson Referring Unavailab le Eloy [...] SANIYA Consulting Unavailable DIPESH, SANIYA Attending Unavailable DIPESH, [...] Consulting Unavailable HERMINIO, ALESSIA Consulting Unavailable ARMANDO ZUELTA Consulting Unavailable NIMISHA, DR ELOY Calero Primary Care Unavailable NIMISHA, DR ELOY Calero Consulting Unavailable NIMISHA, DR ELOY Calero Attending Unavailable NIMISHA, DR ELOY Calero Admitting Unavailable URIOSTEGUI, TAMIE Consulting Unavailable NIMISHA, DR ELOY Calero Primary [...] NIMISHA, DR ELOY Calero Primary Care Unavailable BANSAL, DR ELOY Calero Attending Unavailable NIMISHA, DR ELOY Calero Admitting Unavailable Nimisha, Dr. Eloy Fox Primary Care Unavailab jerry Bansal, Dr. Eloy Fox Referring Unavailab jerry Marquez, Dr. Luiz Franz Attending Unavail able Eloy Bansal MD Primary Care Provider Lexie Douglas Primary Care Physician CELSO IBARRA Attending Unavailable ELOY BANSAL Primary Care Unavailable CELSO IBARRA Attending Unavailable ELOY BANSAL Primary Care Unavailable DENICE MORENO Admitting Unavailable DENICE MORENO Attending Unavailable DENICE MORENO Attending Unavailable DENICE MORENO Attending Unavailable CARLEEN VALDEZ Attending Unavailable BULL LEARY Attending Unavailable DENICE MORENO Referring Unavailable Misael, DAVIDA Seymour Attending Unavailable Misael, DAVIDA Owen L Attending Unavailable Imsael, DAVIDA Owen L Attending Unavailable Misael, BEVEL MILL OPERATOR Lexie L Referring Unavailable Benji MCCULLOUGH Attending Unavailable Allergies Allergy Classification Reported Allergen(s) Allergy Type Date of Onset Reaction(s) Facility (1 source) No Known Medication Allergies; Translations: [No Known Medication Allergies] Propensity to adverse reactions (disorder) [facility] Repository Medications Current Medications Medication Drug Class(es) Dates Sig (Normalized) Sig (Original) [id number] 200 actuat albuterol 0.09 mg/actuat metered dose inhaler (6 sources) beta2-Adrenergic Agonist take 2 puff(s) by inhalation every four hours albuterol (ProAir HFA) 90 mcg/actuation inhaler Inhale 2 puffs every 4 hours if needed. Active take 2 puff(s) by in halation [...] / ipratropium bromide 0.167 mg/ml inhalation solution (7 sources) Anticholinergi c, beta2-Adrenerg ic Agonist Start: [...] nebulization every 4 hours if needed. Active take 1 [IU] by inhal ation every four hours as needed Ipratropium-Albuterol 0.5-2.5 (3) MG/3ML Inhalation Solution USE 1 UNIT DOSE IN NEBULIZER EVERY 4 HOURS NEEDED. Quantity: 0 Refills: 0 Ordered: 13-May-2022 DO Active ascorbic acid 1000 mg oral tablet (6 sources) Vitamin C take 1 tablet by mouth once daily ascorbic acid (Vitamin C) 1,000 mg tablet Take 1 tablet (1,000 mg) by mouth once daily. Active aspirin 81 mg delayed release oral tablet (7 sources) Platelet Aggregation Inhibitor, Nonsteroidal Anti-inflammatory Drug Start: take 1 mg by mouth once daily aspirin 81 mg Oral EC Tab mg tab(s), Oral, Daily, Refills(s) 0 Start Date: 04/19/24 Status: Ordered atorvastatin 40 mg oral tablet (7 sources) HMG-CoA Reductase Inhibitor Start: take 1 tablet by mouth once daily atorvastatin 40 mg Tab TAKE 1 TABLET BY MOUTH EVERY DAY Start Date: 04/19/24 Status: Ordered Dulera 200 mcg-5 mcg/inh inhalation aerosol (1 source) Start: take 2 puff(s) by mouth twice daily Dulera 200 mcg-5 mcg/inh inhalation aerosol INHALE 2 PUFFS BY MOUTH TWICE DAILY. RINSE MOUTH AFTER USE 30 Start Date: 04/19/24 Status: Ordered empagliflozin 10 mg oral tablet (6 sources) Sodium-Glucose Cotransporter 2 Inhibitor take 1 tablet by mouth once daily empagliflozin (Jardiance) 10 mg Take 1 tablet (10 mg) by mouth once daily. Active famotidine 20 mg oral tablet (1 source) Histamine-2 Receptor Antagonist Start: take 1 tablet by mouth twice daily famotidine 20 mg Tab TAKE 1 TABLET BY MOUTH TWICE A DAY Start Date: 04/19/24 Status: Ordered 60 actuat formoterol fumarate 0.005 mg/actuat / mometasone furoate 0.2 mg/actuat metered dose inhaler (6 sources) Corticosteroid, beta2-Adrenergic Agonist take 2 puff(s) by inhalation twice daily mometasone-formotero l (Dulera) 200-5 mcg/actuation inhaler Inhale 2 puffs 2 times a day. Active meclizine hydrochloride 25 mg oral tablet (6 sources) Antiemetic meclizine (Antiv ert) 25 mg tablet Take by mouth. TAKE DIRECTED. Active Meclizine HCl - 25 MG Oral Tablet TAKE DIRECTED. Quantity: 0 Refills: 0 Ordered: 13-May-2022 DO Active 24 hr metoprolol succinate 25 mg extended release oral tablet (7 sources) beta-Adrenergic Maverick Start: 04-19-2024 metopr olol succinate 25 mg ER Tab 12.5 mg = 0.5 tab(s), Oral, Daily, Refills(s) 0 Start Date: 04/19/24 Status: Ordered take 1 tablet by mouth once marisol y metoprolol succinate XL (Toprol-XL) 25 mg 24 hr tablet Take 1 tablet (25 mg) by mouth once daily. Active pantoprazole 40 mg delayed release oral tablet (1 source) Proton Pump Inhibitor Start: 04-19-2024 take 1 tablet by mouth once daily Pantoprazole [address] Tab 40 mg = 1 tab(s), Oral, Daily, # 90 tab(s), Refills(s) 1, Pharmacy: [facility]/pharmacy #[id number], 176, cm, 04/19/24 13:00:00 EDT, Height/Length Dosing, 79, kg, 04/19/24 13:00:00 EDT, Weight Dosing Start Date: 04/19/24 Status: Ordered sacubitril 24 mg / valsartan 26 mg oral tablet (7 sources) Angiotensin 2 Receptor Maverick Start: 04-19-2024 take 0.5 tablet by mouth at bedtime Entresto 24 mg-26 mg oral tablet TAKE 1/2 TABLET BY MOUTH IN THE MORNING AND AT BEDTIME. Start Date: 04/19/24 Status: Ordered take 1 tablet by mouth once marisol y sacubitriL-valsartan (Entresto) 24-26 mg tablet Take 1 tablet by mouth once daily. Active 60 actuat tiotropium 0.0025 mg/actuat inhalation spray (7 sources) Anticholinergic Start: 04-19-2024 take 2 puff(s) by inhalation once daily Spiriva Respimat 60 ACT 2.5 mcg/inh inhalation aerosol INHALE 2 PUFFS INTO THE LUNGS EVERY DAY FOR 30 DAYS Start Date: 04/19/24 Status: Ordered take 2 puff(s) by inhalation onc e daily tiotropium (Spiriva Respimat) 2.5 mcg/actuation inhaler Inhale 2 puffs once daily. Active Spiriva Respimat 2.5 MCG/ACT Inhalation Aerosol Solution TAKE 2 INHALATIONS DAILY. Quantity: 0 Refills: 0 Ordered: 13-May-2022 DO Active Problems Active Problems Problem Classification Problem Date Documented Date Episodic/Chronic Abdominal pain (2 sources) Right upper quadrant pain; Translations: [Right upper quadrant pain] Onset: 05-14-2024 Episodic Chronic obstructive pulmonary disease and bronchiectasis (18 sources) Centriacinar emphysema; Translations: [Other emphysema] Onset: 03-29-2022 Chronic Congestive heart failure; nonhypertensive (15 sources) Chronic systolic heart failure; Translations: [Chronic systolic heart failure] Onset: 03-24-2022 Chronic Coronary atherosclerosis and other heart disease (9 sources) Coronary arteriosclerosis; Translations: [Coronary atherosclerosis of unspecified type of vessel, [place] or graft] Onset: 10-25-2022 07-10-2023 Chronic Disorders [...] Onset: 05-13-2022 Episodic Other lower respiratory disease (4 sources) Nodule of lung; Translations: [Solitary pulmonary nodule] Onset: 07-10-2023 07-12-2023 Episodic Other lower respiratory disease (2 sources) Solitary pulmonary nodule; Translations: [Solitary pulmonary nodule] Onset: 07-12-2023 Episodic Other lower respiratory disease (2 sources) Shortness of breath; Translations: [Shortness of breath] Onset: 11-30-2024 Episodic Other male genital disorders (1 source) Impotence Onset: 04-21-2023 05-09-2024 Chronic Other nutritional; endocrine; and metabolic disorders (1 source) Overweight 04-19-2024 Episodic Other nutritional; endocrine; and metabolic disorders (1 source) Overweight in adulthood with body mass index of 25 or more but less than 30 04-19-2024 Episodic Other upper respiratory disease (6 sources) Allergic rhinitis; Translations: [Allergic rhinitis, cause unspecified] Onset: 07-10-2023 07-10-2023 Chronic Respiratory failure; insufficiency; arrest (adult) (12 sources) Chronic hypoxemic respiratory failure; Translations: [Chronic respiratory failure] Onset: 07-10-2023 07-12-2023 Chronic Comment on above: Uses O2 with during heat and humidity; Substance-related disorders (12 sources) Tobacco dependence syndrome; Translations: [Unspecified drug-induced mental disorder] Onset: 10-29-2021 07-12-2023 Chronic Thyroid disorders (6 sources) Hypothyroidism; Translations: [Unspecified acquired hypothyroidism] Onset: 07-10-2023 07-10-2023 Chronic Unclassified (1 source) CONTACT W/AND (SUSP) EXPOS COVID-19; Translations: [CONTACT W/AND (SUSP) EXPOS COVID-19] Onset: 12-23-2021 Unclassified (2 sources) Post-op; Translations: [Post-op] Onset: 08-22-2024 Past or Other Problems Problem Classification Problem Date Documented Da te Episodic/Chronic Biliary tract disease (10 sources) Biliary calculus; Translations: [Calculus of gallbladder without mention of cholecystitis, without mention of obstruction] Onset: 07-10-2023 07-10-2023 Episodic Blindness and vision defects (1 source) Unspecified visual disturbance; Translations: [UNSPECIFIED VISUAL DISTURBANCE] Onset: 06-11-2022 Episodic Coagulation and hemorrhagic disorders (2 sources) Spontaneous ecchymoses; Translations: [Spontaneous ecchymoses] Onset: 06-26-2024 Episodic Conditions associated with dizziness or vertigo (3 sources) Dizziness and giddiness; Translations: [DIZZINESS AND GIDDINESS] Onset: 06-11-2022 Episodic Nonspecific chest pain (6 sources) Chest pain, unspecified; Translations: [Other chest pain] Onset: 10-14-2021 Episodic Other aftercare (1 source) Other fci (current) drug therapy; Translations: [OTH HALF-WAY CURRENT DRUG THERAPY] Onset: 10-14-2021 Episodic Other [...] Test Name Value Interpretation Reference Range Facility Family Medicine Office/Clini c Noteon 01-30-2025 Family Medicine Office/Clinic Note Family Medicine Office/Clinic Note HPI Staff Mike is a 64 year old male presenting for acute visit Respiratory C/O: Onset: 1 week ago Body aches: no Chest congestion: yes Chills: no Cough: yes Sputum production: yes Sore throat: little bit started with it but is getting better Ear complaints: yes full Eye itching/watering: no Fever: no Headache: yes Nasal congestion: yes Nasal discharge: no Poor appetite: yes Reduced activity: yes Sinus pain/pressure: no Sneezing: yes Wheezing: yes Ill contacts: yes Remedies tried: Mucinex Questions/Concerns: pt hasn't used in nebulizer History of Present Illness pt presents with worsening cough and SOB Review of Systems PHQ Score Initial Depression Screen Score: 0 SCORE Physical Exam Vitals & Measurements T: 37.1 ???C(Tympanic) HR: 100(Peripheral) RR: 20 BP: 110/66 SpO2: 90% HT: 69 in HT: 176.0 cm WT: 164.906 lb WT: 74.80 kg BMI: 24.15 General: alert, no acute distress ENMT: oral mucosa moist, no pharyngeal erythema or exudate Cardiovascular: regular rate and rhythm, normal peripheral perfusion Respiratory: Lungs expiratory wheezes, respirations non labored Extremities: no deformity, no trauma Neurological: oriented x 4, LOC appropriate for age, CN II-XII intact, motor strength equal & normal bilaterally, speech normal Assessment/Plan 1. Wheezing (R06.2: Wheezing) pt has severe wheezing in office today. SOB and pulse ox is low 90's. pt has been using inhalers but has not been using albuterol nebulizer. encouraged him to use that every 4 hours. will give 60mg Kenalog in office and will send in Levaquin. if he is feeling worse do not hesitate to go to ER. RTC 2 weeks Ordered: levofloxacin, 750 mg = 1 tab(s), Oral, Daily, X 7 day(s), # 7 tab(s), Refills(s) 0, Pharmacy: [facility]/pharmacy #[id number], 176, cm, 01/30/25 14:03:00 EDT, Height/Length Dosing, 74.8, kg, 01/30/25 14:03:00 EDT, Weight Dosing 2. COPD (chronic obstructive pulmonary disease) (J44.9: Chronic obstructive pulmonary disease, unspecified) kenalog given in office Ordered: levofloxacin, 750 mg = 1 tab(s), Oral, Daily, X 7 day(s), # 7 tab(s), Refills(s) 0, [id number], 176, cm, 01/30/25 14:03:00 EDT, Height/Length Dosing, 74.8, kg, 01/30/25 14:03:00 EDT, Weight Dosing 3. BMI 24.0-24.9, adult (Z68.24: Body mass index [BMI] 24.0-24.9, adult) BMI education Ordered: levofloxacin, 750 mg = 1 tab(s), Oral, Daily, X 7 day(s), # 7 tab(s), Refills(s) 0, Pharmacy: [id number], 176, cm, 01/30/25 14:03:00 EDT, Height/Length Dosing, 74.8, kg, 01/30/25 14:03:00 EDT, Weight Dosing 4. Non-smoker (Z78.9: Other specified health status) continue not smoking Ordered: levofloxacin, 750 mg = 1 tab(s), Oral, Daily, X 7 day(s), # 7 tab(s), Refills(s) 0, Pharmacy: [facility] #[id number], 176, cm, 01/30/25 14:03:00 EDT, Height/Length Dosing, 74.8, kg, 01/30/25 14:03:00 EDT, Weight Dosing Orders: pantoprazole, See Instructions, TAKE 1 TABLET BY MOUTH EVERY DAY, # 90 tab(s), Refills(s) 1, Pharmacy: [facility] STORE [id number], 176, cm, 05/17/24 14:44:00 EDT, Height/Length Dosing, 78, kg, 05/17/24 14:44:00 EDT, Weight Dosing Follow-up No qualifying data available Problem List/Past Medical History Ongoing Abdominal pain, right upper quadrant Acid reflux BMI 25.0-25.9,adult Cholelithiasis Chronic hypoxemic respiratory failure Chronic systolic heart failure COPD (chronic obstructive pulmonary disease) Coronary arteriosclerosis Erectile dysfunction Hyperlipidemia Hypertension Overweight Smoker Wheezing Historical No qualifying data Procedure/Surgical History Arthroscopy of knee, Biopsy of lung, Cardiac catheterization, Excision of Villalobos's cyst of knee, Meniscal repair. Medications Albuterol (Eqv-Ventolin HFA) 90 mcg/inh inhalation aerosol albuterol-ipratropium Inh Judi 3 mL UD aspirin 81 mg Oral EC Tab, Oral, Daily atorvastatin 40 mg Tab Dulera 200 mcg-5 mcg/inh inhalation aerosol Entresto 24 mg-26 mg oral tablet Levaquin 750 mg Tab, 750 mg= 1 tab(s), Oral, Daily metoprolol succinate 25 mg ER Tab, 12.5 mg= 0.5 tab(s), Oral, Daily Spiriva Respimat 60 ACT 2.5 mcg/inh inhalation aerosol Allergies No Known Allergies No Known Medication Allergies Social History Alcohol - Denies Alcohol Use, 05/14/2024 Past. Beer, Liquor. Several times per day., 01/30/2025 Substance Abuse Current. Marijuana. 3-5 times per week. Previous treatment: None., 01/30/2025 Tobacco 5-9 cigarettes (between 1/4 to 1/2 pack)/day in last 30 days Tobacco Use:., 01/30/2025 Family History Family history is negative [facility] Comment on above: Result Comment: Elec tronically Signed By: Lexie Blanc\.br\Date and Time Signed: 01/30/25 14:21 EDT 36on 01-21-2025 36 Regarding echo resul t from 01/15/2025: MD Bhavna Marinelli MA Please tell him that the cardiac function is relatively stable. I will not make changes at this time and I will see him in follow-up in 1 year. Patient informed. Normal [facility] Office Visiton 11-30-2024 Follow-up visit [id number] JohnMike castrejon 1960 M Date Provider Department Center 11/30/2024 [facility]-CARLEEN VALDEZ CARD [facility] Family History Problem Relation Age of Onset Cancer Mother Family Status - Relation Status Age at Mother Level of Service:04677 RI OFFICE/OUTPATIENT ESTABLISHED MOD MDM 30 MIN Normal [facility] Office Visiton 08-22-2024 Follow-up visit [id number] Mike Lopez H 1960 M Date Provider Department Center 08/22/2024 DENICE DIAZ [facility] SURG [place] Family History Problem Relation Age of Onset Cancer Mother Family Status - Relation Status Age at Mother Level of Service:17375 RI POSTOP FOLLOW UP VISIT RELATED TO ORIGINAL PX Reason for Visit and Comments: Post-op [483] - Mike is here today for post op visit: alculus of gallbladder, s/p 08/10/24 LAP MIGUELINA Normal [facility] Anesthesiaon 08-10-2024 Anesthesia [id number] Mike Lopez H 1960 M Date Provider Department Center 08/10/2024 [id number] [facility] OR [facility] Family History Problem Relation Age of Onset Cancer Mother Family Status - Relation Status Age at Mother Normal [facility] HISTOLOGY - TISSUE EXAMon LAB AP CASE REPORT Normal [facility] Comment on above: Order Comment: Pre-o p diagnosis:Calculus of gallbladder without cholecystitis without obstruction [K80.20] Result Comment: Surg ical Pathology Case: [id number] Authorizing Provider: Denice Moreno MD Collected: 08/10/2024 1443 Ordering Location: [facility] Main Operating Room Received: 08/10/2024 1503 Pathologist: Ese Maher MD Specimen: Gallbladder, GALLBLADDER Performed By: #### L [id number] ####[facility] (BEAKER)[address] [place] [address] LAB AP CLINICAL INFORMATION Normal [facility] Comment on above: Order Comment: Pre-o p diagnosis:Calculus of gallbladder without cholecystitis without obstruction [K80.20] Result Comment: Post -Op Diagnoses K80.20 - Calculus of gallbladder without cholecystitis without obstruction [ICD-10-CM] Performed By: #### L [id number] ####[facility] (BEAKER)[address] [place] [address] LAB AP GROSS DESCRIPTION A. Gallbladder. [facility] Comment on above: Order Comment: Pre-o p diagnosis:Calculus of gallbladder without cholecystitis without obstruction [K80.20] Result Comment: Rece ived in formalin labeled with the patient's name Mike Lopez and gallbladder is a 8.3 x 3.3 x 3.1 cm intact gallbladder. The serosa is pink-purple to yellow, smooth and fatty. The hepatic bed is pink-green and slightly roughened. The attached cystic duct is 0.6 cm in length by 0.2 cm diameter, patent, and received closed with a white plastic clip. No periductal lymph node is identified. The lumen contains a moderate amount of green-yellow, viscous bile admixed with a 5.8 x 3.5 x 0.6 cm aggregate of green-brown, smooth to multifaceted calculi. The mucosa is pink-green and velvety to finely trabeculated with focal denuded areas at the fundus. The wall has an average thickness of 0.1 cm. Executive Account Manager sections are submitted as follows: Cassette summary: A1: Cystic duct margin, en face and neck A2: Body and fundus Yadira Carcamo, Pathologists' Director Career Services Student Performed By: #### L [id number] ####[facility] ([facility])[address] [place] [address] LAB AP MICROSCOPIC DESCRIPTION Microscopic examination performed. [facility] Comment on above: Order Comment: Pre-o p diagnosis:Calculus of gallbladder without cholecystitis without obstruction [K80.20] Performed By: #### L [id number] ####[facility] ([facility])[address] [place] [address] LAB AP REPORT FINAL DIAGNOSIS NARRATIVE [facility] Comment on above: Order Comment: Pre-o p diagnosis:Calculus of gallbladder without cholecystitis without obstruction [K80.20] Result Comment: A. G allbladder, cholecystectomy: - Chronic cholecystitis with cholelithiasis. Performed By: #### L [id number] ####[facility] ([facility])[address] [place] [address] HPon 08-10-2024 HP History Of Present Illness Mike Lopez is a 63 y.o. male presenting with cholelithiasis and chronic cholecystitis. He has been advised to have cholecystectomy. His abdominal pain remains under control at this time, occasionally will have some discomfort. His drafting layout worker has seen him and cleared him for surgery. Past Medical History He has a past medical history of CAD (coronary artery disease), Chronic cholecystitis due to cholelithiasis with choledocholithiasis, Chronic systolic (congestive) heart failure (CMS/HCC), COPD (chronic obstructive pulmonary disease) (CMS/HCC), Hypothyroidism, Near syncope, and Systolic heart failure, chronic (CMS/HCC). Surgical History He has a past surgical history that includes Cardiac catheterization; Knee surgery; and CT guided percutaneous lung (06/28/2022). Social History He reports that he has been smoking cigarettes. He does not have any smokeless tobacco history on file. He reports that he does not currently use alcohol. He reports current drug use. Drug: Marijuana. Family History Family History Problem Relation Name Age of Onset Cancer Mother Allergies Patient has no known allergies. Medications Medications Prior to Admission Medication Sig Dispense Refill Last Dose albuterol 90 mcg/actuation inhaler INHALE 2 PUFFS BY MOUTH EVERY 4 HOURS NEEDED FOR SHORTNESS OF BREATH 08/08/2024 ascorbic acid (Vitamin C) 1,000 mg tablet Take 1,000 mg by mouth in the morning. 08/08/2024 aspirin 81 mg EC tablet Take 1 tablet every day by oral route. 08/08/2024 atorvastatin (Lipitor) 40 mg tablet TAKE 1 TABLET BY MOUTH EVERY DAY 90 tablet 3 08/08/2024 famotidine (Pepcid) 20 mg tablet Take 20 mg by mouth two times daily. 08/08/2024 meclizine (Antivert) 25 mg tablet TAKE 1 TABLET BY MOUTH EVERY 6 HOURS NEEDED FOR DIZZINESS 08/08/2024 metoprolol succinate XL (Toprol-XL) 25 mg 24 hr tablet TAKE 1/2 TABLET BY MOUTH ONCE EVERYDAY 45 tablet 3 08/08/2024 mometasone-formoterol (Dulera 200) 200-5 mcg/actuation inhaler INHALE 2 PUFFS BY MOUTH TWICE A DAY *RINSE MOUTH AFTER USE* 08/08/2024 pantoprazole (ProtoNix) 40 mg EC tablet Take 40 mg by mouth before breakfast. Do not crush, chew, or split. 08/08/2024 sacubitril-valsartan (Entresto) 24-26 mg tablet Take 0.5 tablets by mouth in the morning and at bedtime. 90 tablet 3 08/08/2024 tiotropium (Spiriva) [address] 1 capsule into inhaler and inhale with lunch. 08/08/2024 Review of Systems Constitutional: Negative for appetite change, chills and fever. HENT: Negative. Eyes: Negative. Respiratory: Negative for chest tightness and shortness of breath. Gastrointestinal: Positive for abdominal pain. Negative for abdominal distention, nausea and vomiting. Musculoskeletal: Negative. Skin: Negative for color change and pallor. Neurological: Negative for dizziness and headaches. Psychiatric/Behavioral : Negative for agitation and confusion. Last Recorded Vitals Visit Vitals Temp 36.3 ???C (97.3 ???F) (Temporal) Resp 20 Ht 1.829 m (6') Wt 77 kg (169 lb 12.1 oz) BMI 23.02 kg/m??? Smoking Status Every Day BSA 1.98 m??? Physical Exam Constitutional: General: He is not in acute distress. HENT: Head: Normocephalic and atraumatic. Eyes: Extraocular Movements: Extraocular movements intact. Pupils: Pupils are equal, round, and reactive to light. Cardiovascular: Rate and Rhythm: Normal rate and regular rhythm. Pulses: Normal pulses. Pulmonary: Effort: Pulmonary effort is normal. No respiratory distress. Abdominal: General: Abdomen is flat. There is no distension. Palpations: Abdomen is soft. Tenderness: There is no abdominal tenderness. There is no guarding. Musculoskeletal: General: No swelling or tenderness. Cervical back: Neck supple. No tenderness. Skin: General: Skin is warm and dry. Capillary Refill: Capillary refill takes less than 2 seconds. Neurological: General: No focal deficit present. Mental Status: He is alert and oriented to person, place, and time. Psychiatric: Mood and Affect: Mood normal. Behavior: Behavior normal. Relevant Lab Results No results found for: NA , K , CL , CO2 , BUN , CREATININE , GLUCOSE , CALCIUM , ANIONGAP , EGFR , BCR Relevant Imaging Results CT transfer of outside films This order has been auto-finalized and does not contain a result. Assessment/Plan Assessment & Plan Calculus of gallbladder without cholecystitis without obstruction Relevant Hx: CAD, CHF Course: stable, controlled Daily Update: none Today's Plan: Laparoscopic cholecystectomy, possible cholangiogram Orders from past 72 hours: Full Code; Standing ceFAZolin in dextrose (iso-os) (Ancef) IVPB 2 g Full Code Principal Problem: Calculus of gallbladder without cholecystitis without obstruction Debbie Burgess MD General Surgery Resident [facility] NURSNOTEon 08-10-2024 NURSNOTE Discharge instructio ns discussed with pt and pt's . Stated understanding. Prescription given and sent home with pt. [facility] OPNOTEon 08-10-2024 OPNOTE LAPAROSCOPIC CHOLECYSTECTOMY Operative Note Date: 08/10/2024 Location: [facility] OR Name: Mike Lopez, : 1960, Diagnosis Pre-op Diagnosis * Calculus of gallbladder without cholecystitis without obstruction [K80.20] Post-op Diagnosis * Calculus of gallbladder without cholecystitis without obstruction [K80.20] Procedures LAPAROSCOPIC CHOLECYSTECTOMY 33317 - RI LAPS SURG CHOLECYSTECTOMY W/CHOLANGIOGRAPHY Surgeons Primary: Denice Moreno MD Resident - Assisting: Panfilo Burgess MD Procedure Summary Anesthesia: General ASA: IV Estimated Blood Loss: Minimal Total IV Fluids: 500 mL Drains: * None in log * Specimens ID Source Type Tests Collected By Collected At Frozen? Priority Lab ID A Gallbladder Tissue HISTOLOGY - TISSUE EXAM Denice Moreno MD 08/10/24 1443 No [id number] Description: GALLBLADDER Staff: Asic Engineer: Clark Bonner RN; Osman Jacobs RN Relief Scrub: Vianca Faria CST Scrub Person: Ruba Petty CST Indications: Mike Lopez is an 63 y.o. male who is having surgery for Calculus of gallbladder without cholecystitis without obstruction [K80.20]. Laparoscopic cholecystectomy was offered to the patient, informed consent was obtained. Procedure Details: The patient was seen in the preoperative area. The risks, benefits, complications, treatment options, non-operative alternatives, expected recovery and outcomes were discussed with the patient. The possibilities of reaction to medication, pulmonary aspiration, injury to surrounding structures, bleeding, recurrent infection, the need for additional procedures, failure to diagnose a condition, and creating a complication requiring transfusion or operation were discussed with the patient. The patient concurred with the proposed plan, giving informed consent. The site of surgery was properly noted/marked if necessary per policy. The patient has been actively warmed in preoperative area. Preoperative antibiotics have been ordered and given within 1 hours of incision. Venous thrombosis prophylaxis have been ordered including bilateral sequential compression devices The patient was brought to the operating room, laid on the operating table in supine position. General anesthesia was initiated. Abdomen was prepped and draped in usual sterile fashion. Time-out was completed. A transumbilical 5 mm Optiview trocar was inserted under direct vision. CO2 insufflation was started. Under direct vision, a subxiphoid 12 mm trocar and 2 right subcostal 5 mm trocar were inserted. The gallbladder was visualized as non-distended. Gallbladder wall thickening is not present. Fundus of gallbladder was retracted superiorly. Infundibulum of the gallbladder was retracted laterally. Infundibular blunt and electrocautery dissection to achieve the critical view of Safety. The cystic duct and cystic artery were clearly recognized. Both duct and artery were double clipped proximally, single clipped distally with Hem-O-Carlos and then divided with the scissors. Then the gallbladder was removed from liver bed with electrocautery and put into an EndoCatch bag. The gallbladder was removed from subxiphoid incision inside the EndoCatch bag and sent to pathology in formalin. All the trocars were removed. CO2 was desufflated. The fascia of subxiphoid incision was closed by 0-Vicryl Interrupted suture, which was placed by Missael Macdonald needle. Skin was closed by the 4-0 Vicryl subcuticular suture. Dermabond was applied. The operation was completed without complication. I was present during the entire operation. At end of surgery the instrument count and sponge count were correct. Findings: Cholelithiasis Complications: None; patient tolerated the procedure well. Disposition: PACU - hemodynamically stable. Condition: stable Denice Moreno Normal [facility] POCT GLUCOSE METER UNSOLICIT ED RESULTSon 08-10-2024 Glucose [Mass/Vol] 99 mg/dL Normal 70-105 [facility] Comment on above: Order Comment: Waive d Testing in the ED is performed under the ED CLIA certificate #[id number]. Result Comment: rfit ch2 Performed By: #### L [id number] ####[facility] (SHARI)[address] [address] 36on 07-12-2024 36 ----- Message ----- From: Bull Leary NP Sent: 06/27/2024 2:48 PM EDT To: Julieta Boyd MA Subject: RE: Import I called. They said the time frame for peer to peer is out of the time window. Unfortunately, let the patient know his insurance denied the ECHO and we can try again in a few months. Thanks LM on VM. Normal [facility] Consulton 06-26-2024 Consult [id number] Mike Lopez 1960 M Date Provider Department Center 06/26/2024 Kiera-DENICE MORENO [facility] SURG [place] Family History Problem Relation Age of Onset Cancer Mother Family Status - Relation Status Age at Mother Level of Service:08843 [place] OFFICE/OUTPATIENT NEW LOW MDM 30 MINUTES Reason for Visit and Comments: Consult [484] - Mike is here today for consult: Calculus of gallbladder, S/P CT abdomin and pelvis Normal [facility] Office Visiton 05-23-2024 Follow-up visit [id number] Mike Lopez 1960 M Date Provider Department Center 05/23/2024 Shelby-BULL LEARY GAYATRI [facility] Family History Problem Relation Age of Onset Cancer Mother Family Status - Relation Status Age at Mother Level of Service:76252 [place] OFFICE/OUTPATIENT ESTABLISHED MOD MDM 30 MIN Reason for Visit and Comments: Congestive Heart Failure [127] Normal [facility] Ambulatory Visit Summaryon 0 05-17-2024 Ambulatory Visit Summary Ambulatory Visit Summary MIKE LOPEZ :1960 Visit Date:05/17/2024 Ambulatory Visit Instructions Your [...] choosing us for your care. Normal [facility] Family Medicine Office/Clini c Noteon 05-17-2024 Family Medicine Office/Clinic Note Family Medicine Office/Clinic Note Chief Complaint Follow up to gallstones HPI Staff Mike is a 63 year old male presenting with 4 week f/u to gallstones US right upper quadrant @ [facility] on 04/25/24 was supposed to have gallbladder [...] Family History Family history is negative Normal [facility] Comment on above: Result Comment: Elec tronically Signed By: Lexie Blanc\.br\Date and Time Signed: 05/17/24 15:00 EDT Ambulatory Visit Summaryon 0 04-19-2024 Ambulatory Visit Summary Ambulatory Visit Summary MIKE LOPEZ :1960 Visit Date:04/19/2024 Ambulatory Visit Instructions Your [...] 2:40 PM EDT With: Lexie Blanc Where: [facility] Medicine [address] [address]- Medications What How Much When Why Instructions New pantoprazole (Pantoprazole [address] Tab) 1 Tablets By Mouth Every day Gallstones Acid reflux BMI 25.0-25.9,adult Overweight Smoker Refills: 1 Pickup at [facility]/pharmacy #[id number] Unchanged albuterol (Albuterol [...] EVERY DAY FOR 30 DAYS Pharmacy Information [facility]/pharmacy #[id number]: [address], [place] [id number] [phone] Allergies No Known Medication Allergies Problems Ongoing [...] for choosing us for your care. [facility] Family Medicine Office/Clini c Noteon 04-19-2024 Family Medicine Office/Clinic Note Family Medicine Office/Clinic Note Chief Complaint Establish Care HPI Staff Pt is here today to establish care. 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 Bansal Any recent labs: [facility] ER 03/11/24 Health Maintenance UTD: Colonoscopy: denies PSA: denies Acute: Current issues/complaints: abdominal problems: [facility] ER 03/11/24. CC: abdominal pain CT [...] best. order for u/s of gallbladder to [facility] provided and faxed. RTC 1 months for follow up. may consider lipid panel Ordered: pantoprazole, 40 mg = 1 tab(s), Oral, Daily, # 90 tab(s), Refills(s) 1, Pharmacy: [facility]/pharmacy #[id number], 176, cm, 04/19/24 [...] Daily, # 90 tab(s), Refills(s) 1, [id number] 176, cm, 04/19/24 13:00:00 EDT, Height/Length Dosing, 79, kg, 04/19/24 13:00:00 EDT, Weight Dosing 3. BMI 25.0-25.9,adult (Z68.25: Body mass index [BMI] 25.0-25.9, adult) BMI education given Ordered: pantoprazole, 40 mg = 1 tab(s), Oral, Daily, # 90 tab(s), Refills(s) 1, [id number], 176, cm, 04/19/24 13:00:00 EDT, Height/Length Dosing, 79, kg, 04/19/24 13:00:00 EDT, Weight Dosing 4. Overweight (E66.3: Overweight) see above Ordered: pantoprazole, 40 mg = 1 tab(s), Oral, Daily, # 90 tab(s), Refills(s) 1, Pharmacy: [facility]/pharmacy #[id number], 176, cm, 04/19/24 13:00:00 EDT, Height/Length Dosing, 79, kg, 04/19/24 13:00:00 EDT, Weight Dosing 5. Smoker (F17.200: Nicotine dependence, unspecified, uncomplicated) consider not smoking Ordered: pantoprazole, 40 mg = 1 tab(s), Oral, Daily, # 90 tab(s), Refills(s) 1, Pharmacy: [facility]/pharmacy #[id number], 176, cm, 04/19/24 [...] 1/2 pack (more content not included)... Normal [facility] Comment on above: Result Comment: Elec tronically Signed By: Lexie Blanc\.br\Date and Time Signed: 04/19/24 13:32 EDT Office Visit (Thoracic and E sophageal Surgery)on [...] discussion of perhaps a cardiomyopathy. No h/o OR. Patient had a prior drinking history many [...] May 03 2023 10:38AM EST (Author) Normal [facility] CT CHEST WO CONon 09-22-2022 CT CHEST [...] pulmonary nodule, indeterminate. Electronically authenticated by: ARMANDO GALARZA Date: 2022-09-22 15:11 Normal [facility] CBCon 06-28-2022 Erythrocyte distribution width (RBC) [Ratio] 12.8 % Normal 11.5 - 14.5 [facility] Comment on above: Performed By: #### C BC #### [address] [address] Hematocrit (Bld) [Volume fraction] 48.1 % Normal 41.0 - 52.0 [facility] Comment on above: Performed By: #### C BC #### [address] [address] Hemoglobin (Bld) [Mass/Vol] 16.4 g/dL Normal 13.5 - 17.5 [facility] Comment on above: Performed By: #### C BC #### [address] [address] MCHC (RBC) [Mass/Vol] 34.1 g/dL Normal 32.0 - 36.0 [facility] Comment on above: Performed By: #### C BC #### [address] [address] MCV (RBC) [Entitic vol] 93 fL Normal 80 - 100 [facility] Comment on above: Performed By: #### C BC #### [address] [address] NUCLEATED RBC 0.0 /100 WBC Normal 0.0 - 0.0 [facility] Comment on above: Performed By: #### C BC #### [address] [address] Platelets (Bld) [#/Vol] 189 10*3/uL Normal 150 - 450 [facility] Comment on above: Performed By: #### C BC #### [address] [address] RBC 5.18 x10E12/L Normal 4.50 - 5.90 [facility] Comment on above: Performed By: #### C BC #### [address] [address] WBC (Bld) [#/Vol] 8.3 10*3/uL Normal 4.4 - 11.3 [facility] Comment on above: Performed By: #### C BC #### [address] [address] CHEST 1 VIEWon 06-28-2022 CHEST 1 VIEW Patient Name: MIKE LOPEZ STUDY: CHEST 1 VIEW; 06/28/2022 2:43 pm INDICATION: left lung biopsy . COMPARISON: 10/12/2021 ACCESSION NUMBER(S): [id number] ORDERING CLINICIAN: EDUARDO MAS FINDINGS: CARDIOMEDIASTINAL SILHOUETTE: [...] pneumothorax. Electronically signed by: RAMONA ONEAL MD [facility] CHEST 1 VIEW Patient Name: MIKE LOPEZ STUDY: CHEST 1 VIEW; 06/28/2022 1:41 pm INDICATION: Left lung biopsy . COMPARISON: 06/28/2022 ACCESSION NUMBER(S): [id number] ORDERING CLINICIAN: EDUARDO MAS FINDINGS: DEVICES: None CARDIOMEDIASTINAL SILHOUETTE: Cardiomediastinal silhouette is normal in size and configuration.Right-si ded aortic arch. No significant atherosclerotic calcification LUNGS: Improved opacity in the left upper lobe since yesterday. No pneumothorax. No pleural effusion. BONES: No acute osseous changes. IMPRESSION: 1. Interval improvement left apical focal opacity since yesterday. No pneumothorax. Electronically signed by: RAMONA ONEAL MD [facility] IN BIOPSY LUNG PERCUTANEOUS NEEDLEon 06-28-2022 IN BIOPSY LUNG PERCUTANEOUS NEEDLE Patient Name: MIKE LOPEZ STUDY: IN BIOPSY LUNG; PERCUTANEOUS NEEDLE; 06/28/2022 12:15 pm INDICATION: CT needle biopsy ANDRE R91.8: Multiple pulmonary nodules. COMPARISON: None. ACCESSION NUMBER(S): [id number] ORDERING CLINICIAN: CELSO IBARRA TECHNIQUE: PRODUCT HANDLER: Eduardo Mas MD CONSENT: The patient was [...] and versed. Total intra-service sedation time from 9310-9015 hours (25 minutes). The physician was assisted [...] above. Electronically signed by: EDUARDO MAS MD Normal [facility] PT/INRon 06-28-2022 PT Coag (PPP) [Time] 12.2 s Normal 9.8 - 13.4 [facility] Comment on above: Performed By: #### P TINR #### [place] [address] PT, INR 1.1 Normal 0.9 - 1.1 [facility] Comment on above: Performed By: #### P TINR #### [address] [address] [facility] Surgical Pathology Depar tmenton 06-28-2022 [facility] Surgical Pathology Department Name MIKE LOPEZ Pathologist: Katelynn Cyr MD, Ph.D. Date of Procedure: 06/28/2022 Date Received: 06/28/2022 Date Reported 07/01/2022 Submitting Physician: CELSO IBARRA DO Location: [facility] Copy To/Referring/Attending : EDUARDO MAS MD Other External # FINAL DIAGNOSIS LUNG, LEFT UPPER LOBULE NODULE, BIOPSY: --MINUTE FRAGMENT OF LUNG PARENCHYMA WITHOUT SIGNIFICANT PATHOLOGIC FINDINGS, INSUFFICIENT FOR DIAGNOSIS. SEE NOTE Note: Microscopic examination of H AND E sections demonstrates minute fragments of lung parenchyma without significant abnormalities. Findings might not be advertising representative of the clinically identified lesion. Clinical correlation is recommended Electronically Signed Out By Katelynn Cyr MD, Ph.D./MAC By the signature on this report, the individual or group listed as making the Final Interpretation/Diagnos is certifies that they have reviewed this case. Diagnostic interpretation performed at [address] [place] [address] Clinical History: Physician Contact Number: [phone] Fixative (A): Formalin Clinical Diagnosis History LEFT LUNG NODULE Specimens Submitted As: A: LEFT UPPER LUNG NODULE Gross Description: Received in formalin, labeled with the patient?s name and hospital number and left lung nodule bx , are multiple minute pink-white, soft tissue fragments aggregating to 0.3 x 0.2 x 0.1 cm. The specimen is submitted in toto in one cassette. RCC rcc/06/28/2022 [facility] Department of Pathology [address] [place] [address] Normal [facility] Comment on above: Performed By: #### U [place] #### [facility] Surgical Pathology Department [address] [place] [address] MRI BRAIN WO CONon 2 MRI BRAIN [...] TAMIE URIOSTEGUI Date: 2022-06-09 13:[address] [facility] HEMOGLOBINon 05-21-2022 Hemoglobin (Bld) [Mass/Vol] 15.7 g/dL Normal 14.0-18.0 [facility] Comment on above: Performed By: #### B MP #### [facility] [address] [place] [address] [address] Richard Linares Office Visit (Thoracic and [...] Capacity DLCO; Status:Active - Retrospective Authorization; Requested for:[id number]; Pre/PostBronchodilator Spirometry; Status:Active - Retrospective Authorization; Requested for:[id number]; Provider Impressions Mr. Lopez is a pleasant [...] discussion of perhaps a cardiomyopathy. No h/o OR. Patient had a prior drinking history many [...] (Z80.9) Father (more content not included)... Normal [employer] Tobacco Screening.on 022 Fall risk assessment a) No falls within the last year [facility] Work Phone: Tobacco use status CPHS a) Yes [facility] Work Phone: FUNGAL AB QUANTITAIVE DOUBLE IMMUNODIFFUon 04-17-2022 Aspergillus flavus Negative Normal Neg:<1:1 [facility] Comment on above: Performed By: #### C VDTBH #### [facility] [address] [place] [address] [address] Richard Linares Aspergillus fumigatus Negative Normal Neg:<1:1 [facility] Comment on above: Performed By: #### C VDTBH #### [facility] [address] [place], [place] [address] Dr. Richard Linares Aspergillus niger Negative Normal Neg:<1:1 [facility] Comment on above: Performed By: #### C VDTBH #### [facility] [address] [place] [address] Dr. Richard Linares Blastomyces Negative Normal Neg:<1:1 [facility] Comment on above: Performed By: #### C VDTB #### [facility] [address] [place] [address] Dr. Richard Linares HISTOPLASMA CAP AB QUANT DID on 04-16-2022 Histoplasma Mycelial CF Ab. Negative Normal Neg:<1:2 [facility] Comment on above: Performed By: #### B MP #### [facility] [address] [place] [address] Dr. Richard Linares Histoplasma Yeast CF Ab 1:2 Normal Neg:<1:2 [facility] Comment on above: Performed By: #### B MP #### [facility] [address] [place] [address] Dr. Richard Linares ANTI NEUTROPHIL CYTOPLASMIC AB (ANCA) PRon 04-15-2022 Anti-MPO Antibodies <0.2 Normal 0.0-0.9 [facility] Comment on above: Result Comment: Perf ormed at: BN Performed By: #### B MP #### [facility] [address] [place] [address] Dr. Richard Linares Anti-PR3 Antibodies <0.2 Normal 0.0-0.9 [facility] Comment on above: Result Comment: Perf ormed at: BN Performed By: #### B MP #### [facility] [address] [place] [address] Dr. Richard Linares Atypical pANCA <1:20 Normal Neg:<1:20 [facility] Comment on above: Result Comment: The atypical pANCA pattern has been observed in a significant percentage of patients with ulcerative colitis, primary sclerosing cholangitis and autoimmune hepatitis. Performed at: CB Performed By: #### B MP #### [facility] [address] [place] [address] Dr. Richard Linares Cytoplasmic (C-ANCA) <1:20 Normal Neg:<1:20 [facility] Comment on above: Result Comment: Perf ormed at: CB Performed By: #### B MP #### [facility] [address] [place] [address] [address] Richard Linares Perinuclear (P-ANCA) <1:20 Normal Neg:<1:[address] [facility] Comment on above: Result Comment: The presence of positive fluorescence exhibiting P-ANCA or C-ANCA patterns alone is not specific for the diagnosis of Arnulfo's Granulomatosis (WG) or microscopic polyangiitis. Decisions about treatment should not be based solely on ANCA IFA results. The International ANCA Group Consensus recommends follow up testing of positive sera with both RI-3 and MPO-ANCA enzyme immunoassays. As many as 5% serum samples are positive only by EIA. Ref. AM J Clin Pathol 1999;111:507-513. Performed at: CB Performed By: #### B MP #### [facility] [address] [place] [address] Dr. Richard Linares CYCLIC CITRULLINATED PEPTIDE AB (CCP)on 04-15-2022 CCP Antibodies IgG/IgA 1 units Normal 0-19 [facility] Comment on above: Result Comment: Nega tive <20 Weak positive 20 - 39 Moderate positive 40 - 59 Strong positive >59 Performed By: #### C VDTBH #### [facility] [address] [place] [address] Dr. Richard Linares HISTOPLASMA GALACTOMANNAN AG URINEon 04-15-2022 Histoplasma Gal'madhuri Ag <0.5 Normal <0.5 ng/mL [facility] Comment on above: Performed By: #### H ISTGAL #### [facility] [address] [place] [address] Dr. Richard Linares OSCAR EIA W/REFLEX 5 BIOMARKER Son 04-14-2022 OSCAR Direct Negative Normal Negative [facility] Comment on above: Performed By: #### C VDTBH #### [facility] [address] [place] [address] Dr. Richard Linares ANGIOTENSION-CONVERTING ENZY ME (MATT)on 04-14-2022 MATT 15 U/L Normal 14-82 [facility] Comment on above: Performed By: #### A NGIOC #### [facility] [address] [place] [address] Dr. Richard Linares ANTISCLERODERMA ABon 022 Antiscleroderma-70 Antibodies <0.2 Normal 0.0-0.9 [facility] Comment on above: Performed By: #### A NSCLER #### [facility] [address] [place] [address] Dr. Richard Linares RHEUMATOID FACTORon 04-14-20 22 RA Latex Turbid. <10.0 Normal <14.0 [facility] Comment on above: Performed By: #### B MP #### [facility] [address] [place] [address] [address] Richard Linares SED RATE WESTERGRENon 2021 SED RATE 1 mm/hr Normal <=20 [facility] Comment on above: Performed By: #### S EDR #### [facility] [address] [place] [address] Dr[address] CT SKULL BASE [...] by: ANGELITO MILAN Date: 2022-04-12 14:48 Normal [facility] CT LUNG CANCER SCREENINGon 0 [...] mm solid component. Electronically authenticated by: ARMANDO GALARZA Date: 2022-03-25 08:[address] [facility] ECHOCARDIO M/2D COMPLETEon 0 03-24-2022 ECHOCARDIO M/2D COMPLETE Patient: MIKE LOPEZ Exam Date: 03/24/2022 : 1960 Gender:M Ordering : SANIYA LANDON Admission #: [id number] Family : DR ELOY BANSAL . Order #: [id number] CLICK HERE TO VIEW EXAM ECHOCARDIOGRAM REPORT [...] Lu M.D. on 03/24/2022 at 17:32 Normal [facility] PROF CHEM 8 (BAS METB)on Anion gap [Moles/Vol] 13.4 mmol/L Normal [facility] Comment on above: Performed By: #### C VDTBH #### [facility] [address] [place] [address] [address] Richard Linares Calcium [Mass/Vol] 9.0 mg/dL Normal 8.5-10.1 [facility] Comment on above: Performed By: #### C VDTBH #### [facility] [address] [place] [address] [address] Richard Linares Chloride [Moles/Vol] 102 mmol/L Normal 98-107 [facility] Comment on above: Performed By: #### C VDTBH #### [facility] [address] [place] [address] Dr. Richard Linares CO2 [Moles/Vol] 32.1 mmol/L Critically high 21.0-32.0 [facility] Comment on above: Performed By: #### C VDTBH #### [facility] [address] [place] [address] [address] Richard Linares Creatinine [Mass/Vol] 1.00 mg/dL Normal 0.70-1.30 [facility] Comment on above: Performed By: #### C VDTBH #### [facility] [address] [place] [address] [address] Richard Linares EGFR-AF PITCAIRN ISLANDER >=60 Normal >=60 [facility] Comment on above: Performed By: #### C VDTBH #### [facility] [address] [place] [address] [address] Richard Linares EGFR-NON AF P[place]CA[place]N ISLANDER >=60 Normal >=60 [facility] Comment on above: Performed By: #### C VDTBH #### [facility] [address] [place] [address] [address] Richard Linares Glucose [Mass/Vol] 109 mg/dL Critically high 74-106 [facility] Comment on above: Performed By: #### C VDTBH #### [facility] [address] [place] [address] [address] Richard Linares Potassium [Moles/Vol] 4.5 mmol/L Normal 3.5-5.1 [facility] Comment on above: Performed By: #### C VDTBH #### [facility] [address] [address] [address] Richard Linares Sodium [Moles/Vol] 143 mmol/L Normal 136-145 [facility] Comment on above: Performed By: #### C VDTBH #### [facility] [address] [address] [address] Richard Linares Urea nitrogen [Mass/Vol] 11.0 mg/dL Normal 7.0-18.0 [facility] Comment on above: Performed By: #### C VDTBH #### [facility] [address] [address] [address] Richard Linares Urea nitrogen/Creatinine [Mass ratio] 11.0 mg/mg Normal [facility] Comment on above: Performed By: #### C VDTBH #### [facility] [address] [address] [address] Richard Linares Cardiovascular Lab Reporton 12-22-2021 Cardiovascular Lab Report [facility] Patient Name: Mike Lopez [facility] MR #: [id number] Physician: Carleen Zuniga of [facility] Service Date: 12/21/2021 Division of Birthdate: 1960 Cardiology Room #: [facility] Cardiovascular Services [place] [address] Cardiovascular Laboratory Report INDICATION: The patient is [...] signed informed consent. He was brought to quality assurance qa lab technician in a fasting state. The right neck area was prepped and draped in usual fashion. Micropuncture technique and ultrasound guidance were used for access in the right internal jugular vein. A 6-Azerbaijani x 11 cm sheath was placed. A 6-Azerbaijani Barboza catheter was used for right catheterization with measurement of pressures and calculation of cardiac output using the estimated Bridget method. Barboza catheter was removed. Modified Tyrone's test was favorable on the right. Access in the right radial artery was obtained using micropuncture technique and ultrasound guidance. A 6-Azerbaijani x 11 cm Hydrophilic sheath was advanced. Verapamil was given through the sheath, and heparin was administered intravenously. Bilateral selective coronary angiography was then performed using 6-Azerbaijani JL3.5 and JR5 diagnostic catheters. Catheters were [...] Valdez M.D. Date Trans: 12/22/2021 04:31 A/lois [id number] cc: Eloy Bansal M.D. [address] [place], [place] [id number] Normal [facility] CBC AUTO DIFFon 12-18-2021 BASO # 0.1 103/ul Normal 0.0-0.1 [facility] Comment on above: Performed By: #### C BC #### [facility] [address] [place] [address] Dr. Richard Linares Basophils/100 WBC (Bld) 0.8 % Normal 0.2-2.0 [facility] Comment on above: Performed By: #### C BC #### [facility] [address] [place] [address] Dr. Richard Linares EO # 0.0 103/ul Normal 0.0-0.7 [facility] Comment on above: Performed By: #### C BC #### [facility] [address] [place] [address] Dr. Richard Linares Eosinophils/100 WBC (Bld) 0.0 % Critically low 0.9-7.0 [facility] Comment on above: Performed By: #### C BC #### [facility] [address] [place] [address] Dr. Richard Linares Erythrocyte distribution width (RBC) [Ratio] 12.9 % Normal 11.0-15.0 [facility] Comment on above: Performed By: #### C BC #### [facility] [address] [place] [address] Dr. Richard Linares Hematocrit (Bld) [Volume fraction] 46.1 % Normal 42.0-54.0 [facility] Comment on above: Performed By: #### C BC #### [facility] [address] [place] [address] Dr. Richard Linares Hemoglobin (Bld) [Mass/Vol] 15.6 g/dL Normal 14.0-18.0 [facility] Comment on above: Performed By: #### C BC #### [facility] [address] [place] [address] Dr. Richard Linares IG # 0.04 10e3/ul Critically high 0.00-0.03 [facility] Comment on above: Performed By: #### C BC #### [facility] [address] [place] [address] Dr. Richard Linares IG % 0.5 % Normal 0.0-0.5 [facility] Comment on above: Performed By: #### C BC #### [facility] [address] [place] [address] Dr. Richard Linares LYMPH # 1.5 103/ul Normal 1.2-3.8 [facility] Comment on above: Performed By: #### C BC #### [facility] [address] [place] [address] Dr. Richard Linares Lymphocytes/100 WBC (Bld) 17.7 % Critically low 20.5-60.0 [facility] Comment on above: Performed By: #### C BC #### [facility] [address] [place] [address] Dr. Richard Linares MANUAL DIFF REQ NO Normal [facility] Comment on above: Performed By: #### C BC #### [facility] [address] [place] [address] Dr. Richard Linares MCH (RBC) [Entitic mass] 31.1 pg Normal 25.9-34.0 [facility] Comment on above: Performed By: #### C BC #### [facility] [address] [place] [address] Dr. Richard Linares MCHC (RBC) [Mass/Vol] 33.8 g/dL Normal 29.9-35.2 [facility] Comment on above: Performed By: #### C BC #### [facility] [address] [place] [address] Dr. Richard Linares MCV (RBC) [Entitic vol] 92.0 fL Normal 80.0-94.0 [facility] Comment on above: Performed By: #### C BC #### [facility] [address] [place] [address] Dr. Richard Linares MONO # 0.7 103/ul Normal 0.3-0.8 [facility] Comment on above: Performed By: #### C BC #### [facility] [address] [place] [address] Dr. Richard Linares Monocytes/100 WBC (Bld) 8.7 % Normal 1.7-12.0 [facility] Comment on above: Performed By: #### C BC #### [facility] [address] [place] [address] Dr. Richard Linares NEUT # 6.2 103/ul Normal 1.4-6.5 [facility] Comment on above: Performed By: #### C BC #### [facility] [address] [place] [address] Dr. Richard Linares Neutrophils/100 WBC (Bld) 72.3 % Normal 43.0-75.[address] [facility] Comment on above: Performed By: #### C BC #### [facility] [address] [place] [address] Dr. Richard Linares Platelet mean volume (Bld) [Entitic vol] 10.2 fL Normal 9.5-13.5 [facility] Comment on above: Performed By: #### C BC #### [facility] [address] [place] [address] Dr. Richard Linares PLT 197 103/ul Normal 150-[address] [facility] Comment on above: Performed By: #### C BC #### [facility] [address] [address] [address] Richard Linares RBC 5.01 106/ul Normal 4.70-6.10 [facility] Comment on above: Performed By: #### C BC #### [facility] [address] [id number] Richard Linares WBC 8.5 103/ul Normal 4.0-11.0 [facility] Comment on above: Performed By: #### C BC #### [facility] [address] [address] [address] Richard Linares Covid-19 PCR ([facility])on 12-04 SARS-CoV-2 (COVID-19) RNA MOLLY+probe Ql (Unsp spec) Not detected Normal NOT DETECTED [facility] Comment on above: Result Comment: This test is not yet approved or cleared by the [place] FDA. When there are no FDA-approved or cleared tests available, and other criteria are met, FDA can make tests available under an emergency access mechanism called an Emergency Use Authorization (EUA). The EUA for this test is supported by the Accountant Manager of Health and Human Service's (HHS's) declaration [...] SARS-CoV-2. Performed By: #### B MP #### [facility] [address] [place] [address] Dr. Richard Linares PROF CHEM 8 (BAS METB)on Anion gap [Moles/Vol] 6.2 mmol/L Normal [facility] Comment on above: Performed By: #### B MP #### [facility] [address] [address] [address] Richard Linares Calcium [Mass/Vol] 8.2 mg/dL Critically low 8.5-10.1 [facility] Comment on above: Performed By: #### B MP #### [facility] [address] [address] [address] Richard Linares Chloride [Moles/Vol] 102 mmol/L Normal 98-107 [facility] Comment on above: Performed By: #### B MP #### [facility] [address] [address] [address] Richard Linares CO2 [Moles/Vol] 34.6 mmol/L Critically high 22.0-30.0 [facility] Comment on above: Performed By: #### B MP #### [facility] [address] [place] [address] Dr. Richard Linares Creatinine [Mass/Vol] 0.96 mg/dL Normal 0.66-1.25 [facility] Comment on above: Performed By: #### B MP #### [facility] [address] [address] [address] Richard Linares EGFR-AF PITCAIRN ISLANDER >60 Normal >=60 [facility] Comment on above: Performed By: #### B MP #### [facility] [address] [address] [address] Richard Linares EGFR-NON AF [place] ISLANDER >60 Normal >=60 [facility] Comment on above: Performed By: #### B MP #### [facility] [address] [address] [address] Richard Linares Glucose [Mass/Vol] 94 mg/dL Normal 74-106 [facility] Comment on above: Performed By: #### B MP #### [facility] [address] [address] [address] Richard Linares Potassium [Moles/Vol] 3.8 mmol/L Normal 3.4-5.0 [facility] Comment on above: Performed By: #### B MP #### [facility] [address] [address] [address] Richard Linares Sodium [Moles/Vol] 139 mmol/L Normal 137-145 [facility] Comment on above: Performed By: #### B MP #### [facility] [address] [address] [address] Richard Linares Urea nitrogen [Mass/Vol] 11.0 mg/dL Normal 7.0-18.0 [facility] Comment on above: Performed By: #### B MP #### [facility] [address] [address] [address] Richard Linares Urea nitrogen/Creatinine [Mass ratio] 11.5 mg/mg Normal [facility] Comment on above: Performed By: #### B MP #### [facility] [address] [address] [address] Richard Linares US carotid doppler BIon 11-05 US carotid doppler BI [facility] [address] Ultrasound Report Signed Patient: Mike Lopez MR#: [id number] : 1960 Acct:[id number] Age/Sex: 61 / M ADM Date: 12/01/21 Loc: Room: Type: [facility] Attending Dr: Saniya CASTILLO Ordering Provider: Saniya [...] Milton Wei M.D.12/02/2021 4:20 PM Dictation Location: [address] [address] Tech: [facility] Transcribed By: DIANA 12/02/21 1620 Dictated By: Milton Wei MD 12/02/21 1619 Signed By: 12/02/21 1620 [facility] ECHOCARDIO M/2D COMPLETEon 0 11-27-2021 ECHOCARDIO M/2D COMPLETE Patient: MIKE LOPEZ Exam Date: 11/27/2021 : 1960 Gender:M Ordering : SANIYA LANDON Admission #: [id number] Family : Order #: [id number] CLICK HERE TO VIEW EXAM ECHOCARDIOGRAM REPORT [...] Area(A4C): 15.10 cm2 Left Atrium Systolic Volume(A2C): 76670 mm3 Left Atrium Systolic Volume(A4C): 31402 mm3 Mitral Valve MV E to A Ratio: 0.80 Deceleration [place]: 4530 mm/s2 Mitral Valve A-Wave Peak Velocity: [...] Valdez M.D. on 11/30/2021 at 10:35 Normal [facility] NM STRESS/REST MULTIon 10-26 NM STRESS/REST MULTI Patient: MIKE LOPEZ Exam Date: 10/26/2021 : 1960 Gender:M Ordering : DR ELOY BANSAL . Admission #: [id number] Family : Order #: [id number] CLICK HERE TO VIEW EXAM RADIOLOGY REPORT [...] DEFECT: LOCATION: Basal inferior. Mid-inferior. Apical inferior. [place]. SIZE: Medium (3-4 segments). SEVERITY: Moderate. TYPE: [...] 5. Normal exercise test Dictated by: Armando Galarza MD on 11/09/2021 at 11:34 Approved by: Armando Galarza MD on 11/09/2021 at 11:[address] [facility] CBC AUTO DIFFon 10-12-2021 BASO # 0.0 103/ul Normal 0.0-0.[address] [facility] Comment on above: Performed By: #### B MP #### [facility] [address] [place] [address] Dr. Richard Linares Basophils/100 WBC (Bld) 0.5 % Normal 0.2-2.0 [facility] Comment on above: Performed By: #### B MP #### [facility] [address] [place] [address] Dr. Richard Linares EO # 0.0 103/ul Normal 0.0-0.[address] [facility] Comment on above: Performed By: #### B MP #### [facility] [address] [place] [address] Dr. Richard Linares Eosinophils/100 WBC (Bld) 0.0 % Critically low 0.9-7.0 [facility] Comment on above: Performed By: #### B MP #### [facility] [address] [place] [address] Dr. Richard Linares Erythrocyte distribution width (RBC) [Ratio] 12.8 % Normal 11.0-15.0 [facility] Comment on above: Performed By: #### B MP #### [facility] [address] [place] [address] Dr. Richard Linares Hematocrit (Bld) [Volume fraction] 41.8 % Critically low 42.0-54.0 [facility] Comment on above: Performed By: #### B MP #### [facility] [address] [place] [address] Dr. Richard Linares Hemoglobin (Bld) [Mass/Vol] 14.4 g/dL Normal 14.0-18.0 [facility] Comment on above: Performed By: #### B MP #### [facility] [address] [place] [address] Dr. Richard Linares IG # 0.01 10e3/ul Normal 0.00-0.03 [facility] Comment on above: Performed By: #### B MP #### [facility] [address] [place] [address] Dr. Richard Linares IG % 0.2 % Normal 0.0-0.5 [facility] Comment on above: Performed By: #### B MP #### [facility] [address] [place] [address] Dr. Richard Linares LYMPH # 0.9 103/ul Critically low 1.2-3.8 [facility] Comment on above: Performed By: #### B MP #### [facility] [address] [place] [address] Dr. Richard Linares Lymphocytes/100 WBC (Bld) 15.0 % Critically low 20.5-60.0 [facility] Comment on above: Performed By: #### B MP #### [facility] [address] [place] [address] Dr. Richard Linares MANUAL DIFF REQ NO Normal [facility] Comment on above: Performed By: #### B MP #### [facility] [address] [place] [address] Dr. Richard Linares MCH (RBC) [Entitic mass] 31.4 pg Normal 25.9-34.0 [facility] Comment on above: Performed By: #### B MP #### [facility] [address] [place] [address] Dr. Richard Linares MCHC (RBC) [Mass/Vol] 34.4 g/dL Normal 29.9-35.2 [facility] Comment on above: Performed By: #### B MP #### [facility] [address] [place] [address] Dr. Richard Linares MCV (RBC) [Entitic vol] 91.3 fL Normal 80.0-94.0 [facility] Comment on above: Performed By: #### B MP #### [facility] [address] [place] [address] Dr. Richard Linares MONO # 0.4 103/ul Normal 0.3-0.8 [facility] Comment on above: Performed By: #### B MP #### [facility] [address] [place] [address] Dr. Richard Linares Monocytes/100 WBC (Bld) 6.4 % Normal 1.7-12.0 [facility] Comment on above: Performed By: #### B MP #### [facility] [address] [place] [address] Dr. Richard Linares NEUT # 4.9 103/ul Normal 1.4-6.5 [facility] Comment on above: Performed By: #### B MP #### [facility] [address] [place] [address] Dr. Richard Linares Neutrophils/100 WBC (Bld) 77.9 % Critically high 43.0-75.0 [facility] Comment on above: Performed By: #### B MP #### [facility] [address] [place] [address] Dr. Richard Linares Platelet mean volume (Bld) [Entitic vol] 9.9 fL Normal 9.5-13.5 [facility] Comment on above: Performed By: #### B MP #### [facility] [address] [place] [address] Dr. Richard Linares PLT 208 103/ul Normal 150-[address] [facility] Comment on above: Performed By: #### B MP #### [facility] [address] [place] [address] Dr. Richard Linares RBC 4.58 106/ul Critically low 4.70-6.10 [facility] Comment on above: Performed By: #### B MP #### [facility] [address] [place] [address] Dr. Richard Linares WBC 6.3 103/ul Normal 4.0-11.0 [facility] Comment on above: Performed By: #### B MP #### [facility] [address] [place] [address] Dr. Richard Linares Covid-19 PCR ([facility])on SARS-CoV-2 (COVID-19) RNA MOLLY+probe Ql (Unsp spec) Not detected Normal NOT DETECTED [facility] Comment on above: Result Comment: This test is not yet approved or cleared by the [place] FDA. When there are no FDA-approved or cleared tests available, and other criteria are met, FDA can make tests available under an emergency access mechanism called an Emergency Use Authorization (EUA). The EUA for this test is supported by the [place] of Health and Human Service's (HHS's) declaration [...] consistent with SARS-CoV-2. Performed By: #### C VDTB #### [facility] [address] [place] [address] Dr. Richard Linares PROF 14(COMP METB)on 022 Albumin [Mass/Vol] 3.6 g/dL Normal 3.5-5.0 [facility] Comment on above: Performed By: #### C KORI, HSTROPN #### [facility] [address] [place] [address] Dr. Richard Linares Albumin/Globulin [Mass ratio] 1.3 {ratio} Normal [facility] Comment on above: Performed By: #### C KORI, HSTROPN #### [facility] [address] [place] [address] Dr. Richard Linares ALP [Catalytic activity/Vol] 65 U/L Normal 38-126 [facility] Comment on above: Performed By: #### C MP, HSTROPN #### [facility] [address] [address] [address] Richard Linares ALT [Catalytic activity/Vol] 12 U/L Critically low 21-72 [facility] Comment on above: Performed By: #### C MP, HSTROPN #### [facility] [address] [place] [address] Dr. Richard Linares Anion gap [Moles/Vol] 10.1 mmol/L Normal [facility] Comment on above: Performed By: #### C MP, HSTROPN #### [facility] [address] [place] [address] Dr. Richard Linares AST [Catalytic activity/Vol] 8 U/L Critically low 17-59 [facility] Comment on above: Performed By: #### C MP, HSTROPN #### [facility] [address] [place] [address] Dr. Richard Linares Bilirubin [Mass/Vol] 0.6 mg/dL Normal 0.2-1.3 [facility] Comment on above: Performed By: #### C MP, HSTROPN #### [facility] [address] [place] [address] Dr. Richard Linares Calcium [Mass/Vol] 8.3 mg/dL Critically low 8.4-10.2 [facility] Comment on above: Performed By: #### C MP, HSTROPN #### [facility] [address] [place] [address] Dr. Richard Linares Chloride [Moles/Vol] 106 mmol/L Normal 98-107 [facility] Comment on above: Performed By: #### C MP, HSTROPN #### [facility] [address] [place] [address] Dr. Richard Linares CO2 [Moles/Vol] 29.4 mmol/L Normal 22.0-30.0 [facility] Comment on above: Performed By: #### C MP, HSTROPN #### [facility] [address] [place] [address] Dr. Richard Linares Creatinine [Mass/Vol] 0.73 mg/dL Normal 0.66-1.25 [facility] Comment on above: Performed By: #### C KORI, HSTROPN #### [facility] [address] [address] [address] Richard Linares EGFR-AF [place] ISLANDER >60 Normal >=60 [facility] Comment on above: Performed By: #### C KORI, HSTROPN #### [facility] [address] [address] [address] Richard Linares EGFR-NON AF [place] ISLANDER >60 Normal >=60 [facility] Comment on above: Performed By: #### C KORI, HSTROPN #### [facility] [address] [place] [address] Dr. Richard Linares Globulin (S) [Mass/Vol] 2.8 g/dL Normal [facility] Comment on above: Performed By: #### C KORI, HSTROPN #### [facility] [address] [address] [address] Richard Linares Glucose [Mass/Vol] 133 mg/dL Critically high 74-106 [facility] Comment on above: Performed By: #### C KORI, HSTROPN #### [facility] [address] [address] [address] Richard Linares Potassium [Moles/Vol] 3.5 mmol/L Normal 3.4-5.0 [facility] Comment on above: Performed By: #### C KORI, HSTROPN #### [facility] [address] [address] [address] Richard Linares Protein [Mass/Vol] 6.4 g/dL Normal 6.1-8.2 [facility] Comment on above: Performed By: #### C MP, HSTROPN #### [facility] [address] [place] [address] Dr. Richard Linares Sodium [Moles/Vol] 142 mmol/L Normal 137-145 [facility] Comment on above: Performed By: #### C MP, HSTROPN #### [facility] [address] [address] [address] Richard Linares Urea nitrogen [Mass/Vol] 9.0 mg/dL Normal 9.0-20.[address] [facility] Comment on above: Performed By: #### C MP, HSTROPN #### [facility] [address] [address] [address] Richard Linares Urea nitrogen/Creatinine [Mass ratio] 12.3 mg/mg Normal [facility] Comment on above: Performed By: #### C MP, HSTROPN #### [facility] [address] [address] [address] Richard Linares TROPONIN, HIGH SENSITIVITYon 10-12-2021 HSTROP 6.9 pg/mL Normal 4.0-42.2 [facility] Comment on above: Result Comment: CUT- OFF POINTS HAVE BEEN ESTABLISHED BASED ON THE FOURTH UNIVERSAL DEFINITIONS OF MYOCARDIAL INFARCTION. THE UPPER REFERENCE LIMIT (URL) OF TROPONIN, DEFINED THE 99TH PERCENTILE OF cTnI DISTRIBUTION IN A REFERENCE POPULATION, HAS BEEN CONFIRMED THE DECISION THRESHOLD FOR OR DIAGNOSIS. Performed By: #### H STROPN #### [facility] [address] [address] [address] Richard Linares HSTROP 6.0 pg/mL Normal 4.0-42.[address] [facility] Comment on above: Result Comment: CUT- OFF POINTS HAVE BEEN ESTABLISHED BASED ON THE FOURTH UNIVERSAL DEFINITIONS OF MYOCARDIAL INFARCTION. THE UPPER REFERENCE LIMIT (URL) OF TROPONIN, DEFINED THE 99TH PERCENTILE OF cTnI DISTRIBUTION IN A REFERENCE POPULATION, HAS BEEN CONFIRMED THE DECISION THRESHOLD FOR OR DIAGNOSIS. Performed By: #### C MP, HSTROPN #### [facility] [address] [address] [address] Richard Linares XR CHEST 1 Von [...] by: ARMANDO ZULETA Date: 2021-10-12 19:22 Normal [facility] Vital Signs Date Time Vital Sign Value Performing Clinician Brennan hardwick 05-14-2024 14:14-0400 Blood Pressure Location Benji MCCULLOUGH [facility] [place] 05-14-2024 14:14-0400 Diastolic blood pressure 66 mm[Hg] Benji MARIAL [facility] 05-14-2024 14:14-0400 Heart rate 72 /min Benji MARIAL [facility] 05-14-2024 14:14-0400 Respiratory rate 16 /min Benji MCCULLOUGH [facility] 05-14-2024 14:14-0400 Systolic blood pressure 102 mm[Hg] Benji MCCULLOUGH [facility] 05-13-2022 10:53-0400 Body height 182.88 cm Eloy Bansal Work Phone: HD-Bxbehkssci-Gpqo ia 101 Work Phone: 05-13-2022 10:53-0400 Body mass index (BMI) [Ratio] 22.92 kg/m2 Eloy Bansal Work Phone: IO-Igbyzohlhb-Boaw ia 101 Work Phone: 05-13-2022 10:53-0400 Body surface area Derived from formula 1.98 m2 Eloy Bansal Work Phone: MY-Iwyjaxihxo-Mnkv ia 101 Work Phone: 05-13-2022 10:53-0400 Body temperature 97.1 [degF] Eloy Bansal Work Phone: BS-Lctqzhizis-Tfgf ia 101 Work Phone: 05-13-2022 10:53-0400 Body weight 76.66 kg Eloy Bansal Work Phone: OQ-Qtpnpfffgy-Fqwl ia 101 Work Phone: 05-13-2022 10:53-0400 Diastolic blood pressure 69 mm[Hg] Eloy Bansal Work Phone: PI-Nzatnnasgt-Fefr ia 101 Work Phone: 05-13-2022 10:53-0400 Heart rate 109 /min Eloy Bansal Work Phone: KL-Rfijlbbibf-Cbiy ia 101 Work Phone: 05-13-2022 10:53-0400 Respiratory rate 16 /min Eloy Bansal Work Phone: GN-Imthqjaihs-Qmdj ia 101 Work Phone: 05-13-2022 10:53-0400 SaO2% (BldA) [Mass fraction] 94 % Eloy Bansal Work Phone: XK-Tmfcyhtxcv-Zjzj ia 101 Work Phone: 05-13-2022 10:53-0400 Systolic blood pressure 107 mm[Hg] Eloy Bansal Work Phone: YD-Fdxrlawqsn-Tlja ia 101 Work Phone: Encounters Encounter Date Encounter Type Care Provider Facility Start: 01-30-2025 End: 01-30-2025 ambulatory DAVIDA Douglas Facility:[facility] Start: 11-30-2024 End: 11-30-2024 ambulatory [facility] Start: 08-22-2024 End: 08-22-2024 ambulatory [facility] Start: 08-10-2024 End: 08-10-2024 ambulatory [facility] Start: 07-03-2024 End: 07-03-2024 Phys/qhp telephone evaluation 11-20 min Celso Ibarra DO Work Phone: [facility] Comment on above: Centrilobular emphys veronica (Multi) (Primary Dx); Lung nodule Start: 07-03-2024 ambulatory CELSO Alvarez [facility] Start: 06-26-2024 End: 06-26-2024 ambulatory [facility] Start: 06-25-2024 End: 06-25-2024 ambulatory [facility] Start: 05-23-2024 End: 05-23-2024 ambulatory [facility] Start: 05-23-2024 End: 05-23-2024 Encounter for other preprocedural examination [facility] Start: 05-17-2024 End: 05-17-2024 ambulatory BEVEL MILL OPERATOR Lexie L Misael Facility:[facility] Start: 05-14-2024 End: 05-14-2024 ambulatory BEVEL MILL OPERATOR Lexie L Misael Facility: [place] Start: 05-14-2024 End: 05-14-2024 Patient encounter procedure Benji MCCULLOUGH [facility] [place] Start: 05-04-2024 ambulatory BEVEL MILL OPERATOR Lexie Misael Facilit y:[facility] [place] Start: 05-04-2024 ambulatory BEVEL MILL OPERATOR Lexie Misael Facilit y:[facility] Start: 04-19-2024 End: 04-19-2024 ambulatory BEVEL MILL OPERATOR Lexie L Misael Facility:[facility] Start: 07-12-2023 End: 07-12-2023 Phys/qhp telephone evaluation 11- min Celso Ibarra DO Work Phone: [facility] Comment on above: Cigarette nicotine d ependence with nicotine-induced disorder (Primary Dx); Chronic respiratory failure with hypoxia, on home O2 therapy (CMS/HCC); Centrilobular emphysema (CMS/HCC); Lung nodule Start: 07-12-2023 End: 07-12-2023 ambulatory [facility] Start: 04-14-2023 Patient encounter procedure Eloy Bansal Work Phone: [facility] Work Phone: Start: 04-14-2023 Phys/qhp telephone evaluation 11-20 min Eloy Bansal Work Phone: [facility] [address] Work Phone: Start: 04-14-[address] Eloy Bansal F acility:[facility] Start: 09-22-2022 End: 09-23-[address] ELOY BANSAL Facility:[facility] Start: 06-28-2022 End: 06-28-2022 ambulatory MD Eduardo Mas Facility:[id number] Start: 06-09-2022 End: 06-10-[address] ELOY BANSAL Facility:[facility] Start: 05-21-2022 End: 05-22-[address] ELOY BANSAL Facility:[facility] Start: 05-13-[address] [id number] Start: 05-13-2022 Office outpatient ne w 45 minutes Eloy Bansal Work Phone: [facility] Work Phone: Start: 05-13-2022 Patient encounter procedure Eloy Bansal Work Phone: ML-Uvbxlibzdu-Npkrwb 101 Work Phone: Start: 04-13-2022 End: 04-14-[address] ELOY BANSAL Facility:[facility] Start: 04-10-2022 End: 04-11-[address] ELOY BANSAL Facility:[facility] Start: 03-24-2022 End: 03-25-2022 ambulatory SANIYA LANDON Facility:[facility] Start: 02-19-2022 End: 02-20-2022 ambulatory SANIYA LANDON Facility:[facility] Start: 12-21-2021 End: 12-22-2021 ambulatory SANIYA LANDON Facility:[facility] Start: 12-18-2021 End: 12-19-2021 ambulatory SANIYA LANDON Facility:[facility] Start: 11-27-2021 End: 11-28-2021 ambulatory SANIYA LANDON Facility:[facility] Start: 11-09-2021 End: 11-10-[address] ELOY BANSAL Facility:[facility] Start: 10-26-2021 End: 10-27-[address] ELOY BANSAL Facility:[facility] Start: 10-12-2021 End: 10-13-[address] ELOY BANSAL Facility:[facility] Procedures Date Procedure Procedure Detail Performing Clinician Arthroscopy of knee Eloy Galilea Maria G ight Work Phone: Comment on above: Right; Arthroscopy of knee Benji NILL Biopsy of lung Benji NILL Cardiac catheterization Joe MCCULLOUGH Excision of Villalobos's cyst of knee Benji NILL Excision of cyst Eloy restrepo Work Phone: Comment on above: R knee; Repair of meniscus Benji CELAYA Plan of Treatment Date Care Activity Detail Author Start: 07-03-2024 End: 07-03-2024 Telemedicine consultation with patient 07/03/2024 12:00 PM EDT Telemedicine [facility] [address] [place] [address] [place] [address] [place] [address] [facility] Start: 05-06-2024 COVID-19 Vaccine ( season) COVID-19 Vaccine ( season) [facility] Start: 05-06-2024 Influenza vaccination Influenza Vaccine (#1) [facility] Start: 05-06-2023 Influenza vaccination Influenza Vaccine (#1) [facility] Start: 2020 RSV High Risk: (Elderly (60+) or Population) (1 - Risk 60-74 years 1-dose series) RSV High Risk: (Elderly (60+) or Population) (1 - Risk 60-74 years 1-dose series) [facility] Start: 2010 Zoster Vaccines (1 of 2) Zoster Vaccines (1 of 2) [facility] Start: 1982 DTaP/Tdap/Td Vaccines (1 - Tdap) DTaP/Tdap/Td Vaccines (1 - Tdap) [facility] Start: 11-08-1979 Hepatitis A Vaccines (1 of 2 - Risk 2-dose series) Hepatitis A Vaccines (1 of 2 - Risk 2-dose series) [facility] Start: 1978 Diabetes mellitus screening Diabetes Screening [facility] Start: 1978 Hepatitis C screening Hepatitis C Screening [facility] Start: 1966 Pneumococcal Vaccine: Pediatrics (0 to 5 Years) and At-Risk Patients (6 to 64 Years) (1 - PCV) Pneumococcal Vaccine: Pediatrics (0 to 5 Years) and At-Risk Patients (6 to 64 Years) (1 - PCV) [facility] Start: 1966 Pneumococcal Vaccine: Pediatrics (0 to 5 Years) and At-Risk Patients (6 to 64 Years) (1 of 2 - PCV) Pneumococcal Vaccine: Pediatrics (0 to 5 Years) and At-Risk Patients (6 to 64 Years) (1 of 2 - PCV) [facility] Start: 1961 MMR Vaccines (1 of 1 - Standard series) MMR Vaccines (1 of 1 - Standard series) [facility] Start: 05-10-1961 COVID-19 Vaccine (#1) COVID-19 Vaccine (#1) [facility] Start: 1960 Creatinine measurement Creatinine Level [facility] Start: 1960 Echocardiography Echocardiogram [facility] Start: 1960 HIV screening HIV Screening [facility] Start: 1960 Lipid panel Lipid Panel [facility] Start: 1960 Potassium measurement Potassium Level [facility] Start: 1960 Screening for malignant neoplasm of colon [facility] Start: 1960 Thyroid stimulating hormone measurement TSH Level [facility] Start: 1960 Yearly Adult Physical Yearly Adult Physical [facility] Payers Date Payer Category Payer Medicaid (Managed Care) [employer] [id number] 2016 Unknown 2016 Unknown [id number] 1960 Unknown [id number] 2.16.840.1.100005.3.579.2. 647 1960 Unknown [id number] 2.16.840.1.593819.3.579.2. 1068 1960 Unknown [id number] 2.16.840.1.030693.3.579.2. 1069 1960 Unknown [id number] 2.16.840.1.663390.3.579.2. 593 1960 Unknown [id number] 2.16.840.1.845089.3.579.2. 593 1960 Unknown [id number] 2.16.840.1.071402.3.579.2. 593 1960 Unknown [id number] 2.16.840.1.752755.3.579.2. 593 1960 Unknown [id number] 2.16.840.1.479775.3.579.2. 593 1960 Unknown [id number] 2.16.840.1.587315.3.579.2. 593 1960 Unknown [id number] 2.16.840.1.275712.3.579.2. 593 1960 Unknown [id number] 2.16.840.1.136640.3.579.2. 593 1960 Unknown [id number] 2.16.840.1.244623.3.579.2. 593 1960 Unknown [id number] 2.16.840.1.036063.3.579.2. 593 1960 Unknown [id number] 2.16.840.1.382352.3.579.2. 593 1960 Unknown [id number] 2.16.840.1.849658.3.579.2. 593 1960 Unknown [id number] 2.16.840.1.613649.3.579.2. 593 1960 Unknown [id number] 2.16.840.1.269029.3.579.2. 593 1960 Unknown [id number] 2.16.840.1.196258.3.579.2. 356 1960 Unknown [id number] 2.16.840.1.937468.3.579.2. 1245 1960 Unknown [id number] 2.16.840.1.271418.3.579.2. 1245 1960 Unknown [id number] 2.16.840.1.555629.3.579.2. 727 1960 Unknown [id number] 2.16.840.1.040245.3.579.2. 727 1960 Unknown [id number] 2.16.840.1.141650.3.579.2. 727 1960 Unknown [id number] 2.16.840.1.036060.3.579.2. 727 1959 Self-pay [id number] 1959 Unknown [id number] Social History Date Type Detail Facility Start: 07-07-2023 Current smoker Current smoker [facility] [facility] Work Phone: Comment on above: 2 ppd X 44 yrs, curr ently 4 cig day(2021); Start: 07-07-2023 Tobacco smoking stat us MEIS Smokes tobacco daily [facility] Work Phone: History of tobacco use Cigarette Smoker [facility] Work Phone: Start: 07-07-2023 Tobacco use panel [facility] Start: 1960 Sex Assigned At Not on file [facility] Work Phone: Start: 07-02-2023 End: 07-12-2023 Exposure to SARS-CoV-2 (event) Not sure [facility] Start: 05-14-2024 Tobacco smoking status Light t obacco smoker (finding) [facility] Tobacco smoking status Never [facility] Start: 06-23-2024 End: 07-03-2024 Exposure to SARS-CoV-2 (event) Unable to assess [facility] Work Phone: Functional Status Date Assessment Result Facility 05-14-2024 Functional Status N/A [facility] Clinical Notes 03-05-2021 to 11-30-2024 Celso Ibarra, DO - 07/03/2024 12:45 PM EDTCelso Ibarra, DO - 07/12/2023 1:30 PM EST Note Date & Type Note Facility 11-30-2024 Note PR Cardiology - [facility] Subjective Mike Lopez is a 64 y.o. year old male patient being seen for 6 mo follow. Patient states he is doing fine, with no cardiac complaints at this time. Patient state he does have SOB due to COPD. Patient continues to see Dr. Nuñez every 6 months. Patient Active Problem List Diagnosis Chronic systolic congestive heart failure (CMS/HCC) Coronary artery disease involving [place] coronary artery of [place] heart without angina pectoris Impotence Chronic obstructive lung disease (CMS/HCC) Hypothyroidism Induration penis plastica Right inguinal hernia Rhinitis, allergic Lung nodule Cigarette nicotine dependence with nicotine-induced disorder Chronic respiratory failure with hypoxia, on home O2 therapy (CMS/HCC) Cholelithiasis without cholecystitis Centrilobular emphysema (CMS/HCC) Calculus of gallbladder without cholecystitis without obstruction Abdominal pain, right upper quadrant Acid reflux BMI 25.0-25.9,adult Hyperlipidemia Hypertension Overweight Smoker Family History Problem Relation Name Age of Onset Cancer Mother Social History Tobacco Use Smoking status: Every Day Current packs/day: 0.25 Types: Cigarettes Vaping Use Vaping status: Never Used Substance Use Topics 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 He has COPD and follows with pulmonary. at visit of 10/25/2022 and due to low blood pressure I stopped Jardiance given improvement in ejection fraction. He has no angina. He has shortness of breath on exertion that he thinks is due to his COPD. He does have occasional dizziness and lightheadedness. This happens when he stands up. His blood pressure has been borderline low. Review of Systems Cardiovascular: Positive for dyspnea on exertion (due to COPD) and palpitations ( sometimes ). Negative for near-syncope (at times due to dizzy spells). Musculoskeletal: Negative for joint pain. Neurological: Positive for dizziness and light-headedness. Objective Visit Vitals BP 107/66 (BP Location: Right arm, Patient Position: Sitting) Pulse 87 Ht 1.829 m (6') Wt 74.8 kg (165 lb) SpO2 92% BMI 22.38 kg/m??? Smoking Status Every Day BSA 1.95 m??? Physical Exam Constitutional: Appearance: He is [...] day by oral route., Disp: , Rfl: meclizine (Antivert) 25 mg tablet, TAKE 1 TABLET BY MOUTH EVERY 6 HOURS NEEDED FOR DIZZINESS, Disp: , Rfl: mometasone-formoterol (Dulera 200) 200-5 mcg/actuation inhaler, INHALE 2 PUFFS BY MOUTH TWICE A DAY *RINSE MOUTH AFTER USE*, Disp: , Rfl: oxygen (O2) gas, Inhale 1.5 L/min at bedtime. via nasal canula, Disp: , Rfl: atorvastatin (Lipitor) 40 mg tablet, Take 1 tablet (40 mg) by mouth in the morning., Disp: 90 tablet, Rfl: 3 famotidine (Pepcid) 20 mg tablet, Take 20 mg by mouth two times daily., Disp: , Rfl: metoprolol succinate XL (Toprol-XL) 25 mg 24 hr tablet, Take 0.5 tablets (12.5 mg) by mouth in the morning. Do not crush or chew., Disp: 45 tablet, Rfl: 3 pantoprazole (ProtoNix) 40 mg EC tablet, Take 40 mg by mouth before breakfast. Do not crush, chew, or split., Disp: , Rfl: sacubitril-valsartan (E (more content not included)... [facility] 08-22-2024 Note Subjective Patient ID: Mike Lopez is a 63 y.o. male who presents for Post-op (Mike is here today for post op visit: alculus of gallbladder, s/p 08/10/24 LAP MIGUELINA). HPI He is tolerating to low-fat diet, normal bowel meant, denies of diarrhea. Review of Systems Constitutional: Negative. HENT: Negative. Respiratory: Negative. Cardiovascular: Negative. Gastrointestinal: Negative. Genitourinary: Negative. Musculoskeletal: Negative. Neurological: Negative. Hematological: Negative. Objective Visit Vitals BP 103/61 (BP Location: Right arm, Patient Position: Sitting) Pulse 87 Temp 36.6 ???C (97.8 ???F) (Oral) Physical Exam HENT: Head: Atraumatic. Cardiovascular: Rate and Rhythm: Normal rate. Pulmonary: Effort: Pulmonary effort is normal. Abdominal: General: Abdomen is flat. Palpations: Abdomen is soft. Comments: Incisions are dry, clean, intact. Musculoskeletal: Cervical back: Neck supple. Neurological: Mental Status: He is alert. Final Diagnosis A. Gallbladder, cholecystectomy: - Chronic cholecystitis with cholelithiasis. at 1236 Assessment/Plan Postoperative visit Chronic cholecystitis, cholelithiasis Low-fat diet Follow-up as needed. No diagnosis found. No orders of the defined types were placed in this encounter. No results found for this or any previous visit (from the past 36 hour(s)). No follow-ups on file. [facility] 08-10-2024 Note VM with call back number given. [facility] 08-10-2024 Note Patient: Mike adam Procedure Summary Date: 08/10/24 Room / Location: [facility] OPERATING ROOM 01 / [facility] Operating Room Anesthesia Start: 1351 Anesthesia Stop: 1518 Procedure: LAPAROSCOPIC CHOLECYSTECTOMY (Abdomen) Diagnosis: Calculus of gallbladder without cholecystitis without obstruction (Calculus of gallbladder without cholecystitis without obstruction [K80.20]) Surgeons: Denice Moreno MD Responsible Provider: Freeman Ramirez MD Anesthesia Type: general ASA Status: 4 Anesthesia Type: general Vitals Value Taken Time BP 129/76 08/10/24 1515 Temp 36.6 ???C (97.9 ???F) 08/10/24 1515 Pulse 102 08/10/24 1515 Resp 21 08/10/24 1515 SpO2 100 % 08/10/24 1515 Anesthesia Post Evaluation Patient location during evaluation: PACU Patient participation: complete - patient participated Level of consciousness: awake and alert Pain score: 2 Pain management: adequate Multimodal analgesia pain management approach Airway patency: patent Two or more strategies used to mitigate risk of obstructive sleep apnea Cardiovascular status: hemodynamically stable Respiratory status: room air and nonlabored ventilation Hydration status: euvolemic Patient is hemodynamically stable and is able to be discharged from PACU per anesthesia protocol. There were no known notable events for this encounter. [facility] 08-10-2024 Note Airway Date/Time: 08/10/2024 1:59 PM Urgency: elective Airway not difficult General Information and Staff Patient location during procedure: OR Anesthesiologist: Freeman Ramirez MD Resident/ROAD OILING TRUCK DRIVER/CAA: JONN Mclaughlin Performed: resident/ROAD OILING TRUCK DRIVER/CAA Indications and Patient Condition Indications for airway management: anesthesia Spontaneous Ventilation: absent Sedation level: deep Preoxygenated: yes Patient position: sniffing Mask difficulty assessment: 2 - vent by mask + OA or adjuvant +/- NMBA Planned trial extubation Final Airway Details Final airway type: endotracheal airway Successful airway: ETT Cuffed: yes Successful intubation technique: direct laryngoscopy Endotracheal tube insertion site: oral Blade: Ludwig Blade size: #3 ETT size (mm): 7.5 Cormack-Lehane Classification: grade I - full view of glottis Placement verified by: chest auscultation and capnometry Measured from: lips ETT to lips (cm): 23 Number of attempts at approach: 1 Number of other approaches attempted: 0 [facility] 08-10-2024 Note Patient: Mike adam Procedure Information Date/Time: 08/10/24 1430 Procedure: LAPAROSCOPIC CHOLECYSTECTOMY WITH INTRAOPERATIVE CHOLANGIOGRAM Location: [facility] OPERATING ROOM 01 / [facility] Operating Room Surgeons: Denice Moreno MD Relevant Problems Cardio (+) Chronic systolic congestive heart failure (CMS/HCC) (+) Coronary artery disease involving [place] coronary artery of [place] heart without angina pectoris Endo (+) Hypothyroidism Pulmonary (+) Centrilobular emphysema (CMS/HCC) (+) Chronic obstructive lung disease (CMS/HCC) Expand All Collapse All PR Cardiology - [facility] Subjective Mike Lopez is a 63 y.o. year old male patient being seen for 6 mo follow up chronic systolic heart failure and CAD. Had some tests for pulmonary in the fall. Denies chest pain. Says his WHITE remains unchanged. Still gets dizzy spells with near syncope. Problem List Patient Active Problem List Diagnosis Chronic systolic congestive heart failure (CMS/HCC) Coronary artery disease involving [place] coronary artery of [place] heart without angina pectoris Impotence Chronic obstructive lung disease (CMS/HCC) Hypothyroidism Induration penis plastica Right inguinal hernia Rhinitis, allergic Lung nodule Cigarette nicotine dependence with nicotine-induced disorder Chronic respiratory failure with hypoxia, on home O2 therapy (CMS/HCC) Cholelithiasis without cholecystitis Centrilobular emphysema (CMS/HCC) Family History Family History Problem Relation Name Age of Onset Cancer Mother Social History Social History Tobacco Use Smoking status: Every [...] All other systems reviewed and are negative. Clinical information reviewed: Tobacco Allergies Meds Problems Med Hx Surg Hx Fam Hx Soc Hx Physical Exam Airway Mallampati: I TM distance: >3 FB Neck ROM: full Cardiovascular Rhythm: regular Rate: normal Dental (+) edentulous Pulmonary Abdominal - normal exam Other findings: Longtime smoker, reduced to 6 cigarettes daily; systolic CHF. 05/23/2024 EKG shows sinus tachycardia. 11/21/[address] Norma Valdez says pt. Has mild CAD, nonischemic chronic systolic heart failure. Anesthesia Plan ASA 4 general The patient is a current smoker. Patient was previously instructed to abstain from smoking on day of procedure. Patient did not smoke on day of procedure. intravenous induction Postoperative administration of opioids is intended. Anesthetic plan and risks discussed with patient. Use of blood products discussed with patient who consented to blood products. Plan discussed with CAA. Additional Equipment Requests [facility] 08-10-2024 Note Relevant Hx: CAD, CH F Course: stable, controlled Daily Update: none Today's Plan: Laparoscopic cholecystectomy, possible cholangiogram Orders from past 72 hours: Full Code; Standing ceFAZolin in dextrose (iso-os) (Ancef) IVPB 2 g Full Code [facility] 07-03-2024 History of Present illness Narrative C/C: Follow up visit Telephone visit-- patient agreeable to virtual visit to discuss imaging results and plan of care History Of Present Illness Mike Lopez is a 63 y.o. male presenting for follow up with surveillance imaging for lung nodule. He has a left upper lobe lung nodule (non-diagnostic biopsy in Jun 2022) who presents with surveillance imaging (at [facility]). Followed by Dr. Nuñez, Pulmonology, at [place]. Patient denies any significant change in his COPD recently, still using home O2 intermittently. He reports no worsening cough or worsening dyspnea. Denies recent hospitalizations. Low energy levels, though this is overall unchanged. By way of review: patient was referred [...] discussion of perhaps a cardiomyopathy. No h/o OR. Patient had a prior drinking history many years ago. Current smoker, several cigarettes per day down from 2 packs/day. Past Medical History He has a past medical history of CAD (coronary artery disease), Cholelithiasis, COPD (chronic obstructive pulmonary disease) (Multi), Emphysema of lung (Multi), Heart failure, chronic systolic (Multi), Lung nodule, and On home O2. Social History He reports that he has been smoking cigarettes. He does not have any smokeless tobacco [...] Affect: Mood normal. Relevant Results: Pathology: N/A Imagin06/12/24 CT Chest from [facility] was personally reviewed Assessment/Plan Diagnoses and all orders for this visit: Centrilobular emphysema (Multi) Lung nodule Mike Lopez is a 63 y.o. male with a significant history of COPD, moderate to severe, who presents with a lateral left upper lobe 1.[address] guided bx was non-diagnostic in June 2022. On recent CT from [place] lesions are stable. Plan for repeat CT chest in [address] Nuñez will order this and have it done at [place]. Celso Ibarra DO Thoracic & Esophageal Surgery documented in this encounter [facility] Work Phone: 06-26-2024 Note Subjective Patient ID: Mike Lopez is a 63 y.o. male who presents for Consult (Mike is here today for consult: Calculus of gallbladder, S/P CT abdomin and pelvis ). HPI 63 years old white male is complaining of right upper quadrant pain since 2000. Patient has COPD, chronic systolic congestive heart failure, coronary artery disease. He was referred to [facility] for symptomatic cholelithiasis. Review of Systems Constitutional: Negative. HENT: Negative. Eyes: Negative. Respiratory: Negative. Cardiovascular: Negative. Gastrointestinal: Positive for abdominal pain. Genitourinary: Negative. Musculoskeletal: Negative. Neurological: Positive for dizziness. Hematological: Bruises/bleeds easily. Objective Visit Vitals BP 134/80 (BP Location: Left arm, Patient Position: Sitting) Pulse (!) 117 Temp 36.6 ???C (97.9 ???F) (Oral) Physical Exam HENT: Head: Atraumatic. Cardiovascular: Rate and Rhythm: Normal rate. Pulmonary: Effort: Pulmonary effort is normal. Abdominal: General: Abdomen is flat. Palpations: Abdomen is soft. Musculoskeletal: Cervical back: Neck supple. Neurological: Mental Status: He is alert and oriented to person, place, and time. CT scan from March 2023 showed cholelithiasis. Assessment/Plan Chronic cholecystitis, cholelithiasis Robotic cholecystectomy is indicated, informed consent was obtained. He need cardiac clearance. No diagnosis found. No orders of the defined types were placed in this encounter. No results found for this or any previous visit (from the past 36 hour(s)). No follow-ups on file. [facility] 05-23-2024 Note Cardiovascular Medic [facility] SUBJECTIVE Chief Complaint Patient presents with Congestive Heart Failure Mike Lopez is a 63 y.o. male here for follow-up. His Lynette accompanied him today. HPI PMHx: HFrEF, NICM, CAD (mild dz per 12/2021 cath), COPD He is pending surgery for his gallbladder with Dr. Mccullough. He has lots of stones. He has intermittent abdominal pain. BP at home has been running 110-130/70-80s. He has dizziness that is ongoing. He has WHITE - this is unchanged. Denies CP, orthopnea, PND, LE edema, palpitations. Patient Active Problem List Diagnosis Chronic systolic congestive heart failure (CMS/HCC) Coronary artery disease involving [place] coronary artery of [place] heart without angina pectoris Impotence Chronic obstructive lung disease (CMS/HCC) Hypothyroidism Induration penis plastica Right inguinal hernia Rhinitis, allergic Lung nodule Cigarette nicotine dependence with nicotine-induced disorder Chronic respiratory failure with hypoxia, on home O2 therapy (CMS/HCC) Cholelithiasis without cholecystitis Centrilobular emphysema (CMS/[facility]) Past Medical History: Diagnosis Date CAD (coronary artery disease) COPD (chronic obstructive pulmonary disease) ([facility]) Hypothyroidism Near syncope Systolic heart failure, chronic [...] Final Atrial Rate 12/21/2021 93 BPM Final RI Interval 12/21/2021 140 ms Final QRS DURATION 12/21/2021 90 ms Final QT Interval 12/21/2021 330 ms Final QTC CALCULATION(BAZET[place]) 12/21/2021 410 ms Final P [place] 12/21/2021 72 degrees Final R-[place] 12/21/2021 76 degrees Final T Wave [place] 12/21/2021 57 degrees Final Diagnosis 12/21/2021 Final Value:Normal sinus rhythm Normal ECG No previous ECGs available Confirmed by Randolph Chandra ([id number]) on 12/22/2021 8:48:12 AM Blood testing 04/21/2023: Potassium 4.4, BUN 11, creatinine 0.85, LFTs normal, cholesterol 112, HDL 45, triglycerides 44, LDL 58, hemoglobin 14.8, platelets 213. labs- 02/19/22 BUN 11, CR 1.00- nor (more content not included)... [facility] 05-23-2024 Note Pt here for follow u p on chronic systolic heart failure, CAD, COPD. Denies chest pain, SOB palpitations or edema Review of Systems Neurological: Positive for dizziness. [facility] 05-14-2024 Note General Surgery Offi ce/Clinic Note Chief Complaint consultation for cholelithiasis HPI Staff 63 year old male presents on consultation from Lexie Douglas for cholelithiasis. Patient presented to [facility] ED 03/11 with complaint of worsening [...] abd pain and cholelithiasis; patient seen at [facility] ED 2 months ago for several [...] no NSAID use; smokes daily. patient sees Systems Analysis Manager yearly, [facility], reported for heart failure; and Creping Machine Operator, Dr Nuñez; he reports recent appointment; smokes [...] Hyperlipidemia Hypertension Overweight (more content not included)... [facility] Comment on above: Result Comment: Elec tronically Signed By: JAMEL TRINIDAD, Benji Patricia\Date and Time Signed: 05/14/24 16:10 EDT 07-12-2023 History of Present illness Narrative C/C: [...] discussion of perhaps a cardiomyopathy. No h/o OR. Patient had a prior drinking history many [...] Results: Pathology: N/A Imagin06/22/2023 CT Chest from [facility] was personally reviewed Assessment/Plan Diagnoses and all [...] order this and have it done at [place]. Celso Ibarra DO Thoracic & Esophageal Surgery documented in this encounter [facility] Work Phone: 06-05-2022 History of Present illness [...] discussion of perhaps a cardiomyopathy. No h/o OR. Patient had a prior drinking history many years ago.Current smoker, several cigarettes per day down from 2 packs/day. [facility] Surgery[facility] [address] Work Phone: 03-05-2021 History of Present illness [...] discussion of perhaps a cardiomyopathy. No h/o OR. Patient had a prior drinking history many years ago. Current smoker, several cigarettes per day down from 2 packs/day. [facility]-CT Surgery-[place] Work Phone: Evaluation + Plan note Future Appointments Appointment Date:05/17/2024 02:40:00 PM Scheduled Provider:Lexie Blanc Location:[facility] Appointment Type: [facility] [place] Evaluation note Diagnosis Cigarette nicotine dependence with nicotine-induced disorder- Primary Chronic respiratory failure with hypoxia, on home O2 therapy (CMS/HCC) Centrilobular emphysema (CMS/HCC) Lung nodule Other diseases of lung, not elsewhere classified documented in this encounter [facility] Work Phone: Evaluation note* Diagnosis Centrilobular emphysema (Multi)- Primary Lung nodule Other diseases of lung, not elsewhere classified documented in this encounter [facility] Work Phone: Hospital course Narrative No data available for this section [facility] Hospital Discharge instructions No data available for this section [facility] Progress note No data available for this section [facility] Summary Purpose Family History No Family History [...] section and content) DATE CREATED AUTHOR 12/16/2021 [facility] DATE CREATED AUTHOR AUTHOR'S ORGANIZ ATION 12/28/2021 [facility] DATE CREATED AUTHOR AUTHOR'S ORGANIZ ATION 06/06/2022 [facility] DATE CREATED AUTHOR AUTHOR'S ORGANIZ ATION 07/02/2022 [facility] DATE CREATED AUTHOR AUTHOR'S ORGANIZ ATION 09/28/2022 [facility] DATE CREATED AUTHOR AUTHOR'S ORGANIZ ATION 04/15/2023 [facility] [place] DATE CREATED AUTHOR AUTHOR'S ORGANIZ ATION 05/04/2023 [facility] DATE CREATED AUTHOR AUTHOR'S ORGANIZ ATION 07/09/2024 [facility] DATE CREATED AUTHOR AUTHOR'S ORGANIZ ATION 01/22/2025 [facility] DATE CREATED AUTHOR AUTHOR'S ORGANIZ ATION 02/01/2025 Dustin Lazo [facility] Care Teams (unrecognized sec tion and content) Pasteurizer Helper Relationship Specialty Start Date End Date Eloy Bansal MD [address] [place] [address] PCP - General 05/13/22 Pasteurizer Helper Relationship Specialty Start Date End Date Eloy Bansal MD [address] [place] [address] PCP - General 05/13/22 FOR RECORDS PERTAINING [...] BE BASED ON THE PRIMARY CLINICAL RECORDS. [facility] Resident Research [facility]. provides no warranty or guarantee of the accuracy or completeness of information in this document.
--- OUTSIDE RECORDS SUMMARY | 2025-02-15 23:17 | XMS_ITS | Clinical Summary ---
Author Organization [facility] Address [address] [place] [address] Care Team Providers Care Specification Writer Name Role Phone Unavailable Primary Care Provider Unavailabl e Social History Tobacco Use Types Packs/Day Years Used Date Smoking Tobacco: Never Assessed Sex and Gender Information Value Date Recorded Sex Assigned at Not on file Legal Sex Male 9:51 AM EST Gender Identity Not on file Sexual Orientation Not on file Plan of Treatment Health Maintenance Due Date Last Done Comments Anxiety Screening 1978 Depression Screening 1978 HIV Screening 1978 Hepatitis C Screening 1978 DTaP,Tdap,Td Vaccine (1 - Tdap) 11/08/1979 Lipid Screening 11/08/1995 CT Colonography 2005 Cologuard (FIT-DNA) 2005 Colonoscopy 2005 Colorectal Cancer Screening 2005 Diabetes Screening 2005 Fecal Occult Blood 2005 Prostate Cancer Screening Discussion 2005 Sigmoidoscopy 2005 Pneumococcal Vaccine: 50+ (1 of 1 - PCV) 2010 Shingrix Vaccine (1 of 2) 2010 Covid-19 Vaccine ( - 2023-25 season) 2024 Influenza Vaccine (Season Ended) 2025 RSV Vaccine (1 - 1-dose 75+ series) 11/08/2035 Insurance O [employer] PPO
--- OUTSIDE RECORDS SUMMARY | 2025-02-15 23:17 | XMS_ITS | Encounter Summary ---
Author Organization [facility] Address [address] [place] [address] Care Team Providers Care Videotape Operator Name Role Phone Ruddy Peres MD Primary Care Provider PcpKerry COLOR SPRAYER Primary Care Provider Unavailabl e Source Comments In the event this information is protected by the Federal Confidentiality of Alcohol and Drug AbusePatient Records regulations: The Federal rules restrict any use of the information to criminally investigate or prosecute any alcohol or drug abuse patient.[facility] Encounter Details Date Type Department Care Team (Latest Contact Info) Description 01/09/2003 Prob Sum Review Provider, Cc Social History Tobacco Use Types Packs/Day Years Used Date Smoking Tobacco: Never Assessed Sex and Gender Information Value Date Recorded Sex Assigned at Not on file Legal Sex Male 9:51 AM EST Gender Identity Not on file Sexual Orientation Not on file documented as of this encounter Plan of Treatment Not on file documented as of this encounter Visit Diagnoses Not on filedocumented in this encounter Care Teams Videotape Operator Relationship Specialty Start Date End Date Ruddy Peres MD [address] [address] PCP - General 10/25/02 03/19/22 PcpKerry APRN PCP - General 03/20/22 10/05/22 documented as of this encounter
--- NOTE | 2025-02-15 23:18 | ED.CHESTPAI1 ---
HPI - Chest Pain General Chief Complaint: Chest Pain Stated Complaint: CHEST PAINS Time Seen by Provider: 02/15/25 23:12 History of Present Illness HPI narrative: cc - chest pain 3 days ago began not feeling well . Then developed mid sternal chest pain one day ago. Pain waxed and waned until tonight when it became constant. EMS called - they gave the pt 3 asa and 1 SL nitro in route. Pt also complains of tingling down left arm. No other symptoms. He said that the pain decreased to 6/10 after EMS treatment. No recent injury or illness and no recent activity to account for the pain. No prior cardiac history. PMHx = COPD and HTN Related Data Home Medications ?Medication ?Instructions ?Recorded ?Confirmed albuterol sulfate 90 mcg/actuation 2 inh inhalation Q4H PRN shortness 03/11/24 02/15/25 aerosol inhaler of breath or wheezing atorvastatin 40 mg tablet 40 mg PO DAILY 03/11/24 02/15/25 ipratropium 0.5 mg-albuterol 3 mg 3 ml inhalation Q6H 03/11/24 03/11/24 (2.5 mg base)/3 mL nebulization soln metoprolol succinate 25 mg 12.5 mg PO Q12H 03/11/24 02/15/25 tablet,extended release 24 hr mometasone-formoterol HFA 200 2 inh inhalation DAILY 03/11/24 02/15/25 mcg-5 mcg/actuation aerosol inhaler (Dulera) sacubitril 24 mg-valsartan 26 mg 0.5 tab PO BID 03/11/24 02/15/25 tablet (Entresto) tiotropium bromide 2.5 2 inh inhalation Q24H 03/11/24 03/11/24 mcg/actuation mist for inhalation (Spiriva Respimat) Spiriva Respimat 02/15/25 aspirin 81 mg chewable tablet 81 mg PO DAILY 02/15/25 02/15/25 (Children's Aspirin) Previous Rx's ?Medication ?Instructions ?Recorded dicyclomine 20 mg tablet 20 mg PO QID PRN abdominal pain 03/11/24 #20 tabs famotidine 20 mg tablet (Pepcid) 20 mg PO BID #20 tabs 03/11/24 pantoprazole 40 mg tablet,delayed 40 mg PO DAILY #30 tabs 03/11/24 release (Protonix) nabumetone 750 mg tablet 750 mg PO BID PRN pain #14 tabs 02/16/25 Allergies Allergy/AdvReac Type Severity Reaction Status Date / Time No Known Drug Allergies Allergy Verified 02/15/25 23:20 [facility] Medical History (Updated 02/16/25 @ 01:40 by Alfonzo Stone) FH: cholecystectomy ?Z83.79 - Family history of other diseases of the digestive system (ICD-10) COPD (chronic obstructive pulmonary disease) ?J44.9 - Chronic obstructive pulmonary disease, unspecified (ICD-10) Surgical History (Updated 02/15/25 @ 23:22 by Brandie Livingston) H/O knee surgery ?Z98.890 - Other specified postprocedural states (ICD-10) Social History Little interest or pleasure in doing things: not at all Feeling down, depressed, or hopeless: not at all Exam Narrative Exam Narrative: Nurses notes and vital signs reviewed and patient is not hypoxic. afebrile General: Well-appearing and in no apparent distress. Skin: Warm, dry, no pallor noted. Head: Normocephalic, atraumatic. Eye: Pupils are equal, round and EOMI. No scleral icterus. Ears, Nose, Mouth, and Throat: Oral mucosa is moist Cardiovascular: Regular Rate and Rhythm without murmur, gallop or rub. Respiratory: No accessory muscle use or respiratory distress. Lungs are clear to auscultation, no wheezing, rales or rhonchi Chest Wall: no tenderness, crepitus or subcutaneous emphysema Musculoskeletal: normal ROM, no calf or popliteal tenderness, no lower extremity edema/swelling GI: Abdomen is soft, non-distended. Normal bowel sounds. o tenderness to palpation. No rebound, guarding, or rigidity noted. Neurological: A&O x4. No cranial nerve dysfunction observed. No truncal ataxia. Moves all extremities. Sensation intact. Psychiatric: Cooperative and interactive. Normal mood and affect. Constitutional Vital Signs, click to edit/add: Last Vital Signs Temp 98.7 F 02/15/25 23:14 Pulse 90 02/16/25 01:47 Resp 28 H 02/16/25 01:47 BP 96/82 02/16/25 01:47 Pulse Ox 96 02/16/25 01:47 O2 Del Method Nasal Cannula 02/16/25 01:47 O2 Flow Rate 1.5 02/16/25 01:47 Course Vital Signs Vital signs: Vital Signs Temperature 98.7 F 02/15/25 23:14 Pulse Rate 91 H 02/15/25 23:14 Respiratory Rate 24 H 02/15/25 23:14 Blood Pressure 82/54 L 02/15/25 23:14 Pulse Oximetry 98 02/15/25 23:14 Oxygen Delivery Method Room Air 02/15/25 23:14 Temperature 98.7 F 02/15/25 23:14 Pulse Rate 90 02/16/25 01:47 Respiratory Rate 28 H 02/16/25 01:47 Blood Pressure 96/82 02/16/25 01:47 Pulse Oximetry 96 02/16/25 01:47 Oxygen Delivery Method Nasal Cannula 02/16/25 01:47 Oxygen Delivery Flow Rate 1.5 02/16/25 01:47 MDM - Chest Pain MDM Narrative Medical decision making narrative: 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 Blood drawn and sent for evaluation. Portable chest x-ray obtained. BP was low so he was given 1L NS IVF. EKG was notable for some PVCs but no ST elevation or deep ischemic changes were noted. Chest x-ray unremarkable. Blood tests including troponin and BNP were negative. Repeat troponin obtained and was also negative. Patient was given IV Toradol for pain, which he said did not help. He was given IV Norflex and IV Protonix as well. He was informed of negative results and given reassurance. For some reason, pt is not eating and not drinking appropriately. Recheck of BP was improved but still not normal. He was ordered to receive a 2nd liter of NS IVF. Once that was given, the pt was discharged home with instructions to eat and take in increased fluids. He can follow up with his PCP. Prescribed relafen for pain. Differential Diagnosis Differential diagnosis: Likely pneumothorax, stable angina, unstable angina pectoris, atypical chest pain, st elevation myocardial infarction, costochondritis, chest pain and biliary colic Medical Records Data Attestation: I reviewed the patient's medical records. Lab Data Attestation: I reviewed the patient's lab results. Labs: Lab Results 02/15/25 02/16/25 Range/Units 23:25 00:28 WBC 10.4 (4.0-11.0) 10^3/uL RBC 4.87 (4.70-6.10) 10^6/uL Hgb 15.3 (14.0-18.0) g/dL Hct 44.2 (42.0-54.0) % MCV 90.8 (80.0-94.0) fL MCH 31.4 (25.9-34.0) pg MCHC 34.6 (29.9-35.2) g/dL RDW 12.9 (11.0-15.0) % Plt Count 259 (150-450) 10^3/uL MPV 10.2 (9.5-13.5) fL Neut % (Auto) 76.6 H (43.0-75.0) % Lymph % (Auto) 14.1 L (20.5-60.0) % [place] % (Auto) 8.4 (1.7-12.0) % Eos % (Auto) 0.0 L (0.9-7.0) % Baso % (Auto) 0.5 (0.2-2.0) % Neut # (Auto) 8.0 H (1.4-6.5) 10^3/uL Lymph # (Auto) 1.5 (1.2-3.8) 10^3/uL [place] # (Auto) 0.9 H (0.3-0.8) 10^3/uL Eos # (Auto) 0.0 (0.0-0.7) 10^3/uL Baso # (Auto) 0.1 (0.0-0.1) 10^3/uL Abs Immat Gran (auto) 0.04 H (0.00-0.03) 10^3/uL Imm/Tot Granulo (auto) 0.4 (0.0-0.5) % Sodium 139 (136-145) mmol/L Potassium 3.9 (3.5-5.1) mmol/L Chloride 101 (98-107) mmol/L Carbon Dioxide 30.3 (21.0-32.0) mmol/L Anion Gap 11.6 BUN 12.0 (7.0-18.0) mg/dL Creatinine 0.68 L (0.70-1.30) mg/dL Est GFR ( Amer) >60 (>=60 mL/min/1.73m^2) Est GFR (Non-Af Amer) >60 (>=60 mL/min/1.73m^2) BUN/Creatinine Ratio 17.6 Glucose 104 (74-106) mg/dL Calcium 9.0 (8.5-10.1) mg/dL Troponin I High Sens 5.6 6.4 (4.0-76.1) pg/mL NT-Pro-B Natriuret Pep 162.0 (<=900.0) pg/mL Imaging Data Chest x-ray: Radiologist's impression: Normal heart size, no lobar consolidation or edema, no pleural effusion or pneumothorax, right-sided aortic arch ECG Data Attestation: I personally reviewed and interpreted this ECG as follows: Interpretation: EKG interpretation: Emergency Department physician interpretation. Normal sinus rhythm at 70bpm. Normal axis, normal intervals and no ST segment elevation or depression. PVCs noted Heart Score History: Moderately Suspicious ECG: Normal Age: >45-<65 years Risk Factors: 1 or 2 Risk Factors Troponin: <Normal Limit Total Heart Score Recommendations & Risks:: 3 Discharge Plan Discharge Chief Complaint: Chest Pain Clinical Impression: Chest pain, Malnutrition, Acute hypotension Patient Disposition: Home, Self-Care Time of Disposition Decision: 01:34 Prescriptions / Home Meds: New nabumetone 750 mg tablet 750 mg PO BID PRN (Reason: pain) Qty: 14 0RF No Action albuterol sulfate 90 mcg/actuation HFA aerosol inhaler 2 inh INHALATION Q4H PRN (Reason: shortness of breath or wheezing) atorvastatin 40 mg tablet 40 mg PO DAILY ipratropium-albuterol 0.5 mg-3 mg(2.5 mg base)/3 mL solution for nebulization 3 ml INHALATION Q6H metoprolol succinate 25 mg tablet extended release 24 hr 12.5 mg PO Q12H Dulera 200-5 mcg/actuation HFA aerosol inhaler 2 inh INHALATION DAILY Entresto 24-26 mg tablet 0.5 tab PO BID Spiriva Respimat 2.5 mcg/actuation mist 2 inh INHALATION Q24H famotidine [Pepcid] 20 mg tablet 20 mg PO BID Qty: 20 0RF pantoprazole [Protonix] 40 mg tablet,delayed release (DR/EC) 40 mg PO DAILY Qty: 30 0RF dicyclomine 20 mg tablet 20 mg PO QID PRN (Reason: abdominal pain) Qty: 20 0RF aspirin [Children's Aspirin] 81 mg tablet,chewable 81 mg PO DAILY Spiriva Respimat Print Language: Croatian Instructions: Chest Pain (ED), Malnutrition (DC), Hypotension (ED) Referrals: Physician,Non-Staff, MD [Physician] - 1 week
[2025-02-15] MEDS: 0.9 % SODIUM CHLORIDE 1,000 ML 1000 ML IV (23:33)
[2025-02-15 23:36] LABS: Basophils Absolute Auto 0.1 10^3/uL (0.0-0.1); Basophils Percent Auto 0.5 % (0.2-2.0); Hematocrit 44.2 % (42.0-54.0); Hemoglobin 15.3 g/dL (14.0-18.0); Immature Granulocytes Abs Auto 0.04 10^3/uL (0.00-0.03); Immature Granulocytes Pct Auto 0.4 % (0.0-0.5); Lymphocytes Absolute Auto 1.5 10^3/uL (1.2-3.8); Lymphocytes Percent Auto 14.1 % (20.5-60.0); Mean Corpuscular HGB Conc 34.6 g/dL (29.9-35.2); Mean Corpuscular Hemoglobin 31.4 pg (25.9-34.0); Mean Corpuscular Volume 90.8 fL (80.0-94.0); Mean Platelet Volume 10.2 fL (9.5-13.5); Monocytes Absolute Auto 0.9 10^3/uL (0.3-0.8); Monocytes Percent Auto 8.4 % (1.7-12.0); Neutrophils Percent Auto 76.6 % (43.0-75.0); Platelet Count 259 10^3/uL (150-450); Red Blood Count 4.87 10^6/uL (4.70-6.10); Red Cell Distribution Width 12.9 % (11.0-15.0); White Blood Count 10.4 10^3/uL (4.0-11.0)
[2025-02-16] VITALS (11 sets, daily range): BP systolic 90–105; BP diastolic 57–82; PULSE 69–90; O2SAT 96–97
[2025-02-16] LABS: Anion Gap 11.6; BUN Creatinine Ratio 17.6; Carbon Dioxide 30.3 mmol/L (21.0-32.0); Chloride 101 mmol/L (98-107); Estimated GFR (African America >60 (>=60 mL/min/1.73m^2); Estimated GFR (Non-African Ame >60 (>=60 mL/min/1.73m^2); Glucose 104 mg/dL (74-106); Potassium 3.9 mmol/L (3.5-5.1); Sodium 139 mmol/L (136-145); Troponin I High Sensitivity 5.6 pg/mL (4.0-76.1)
[2025-02-16] MEDS: KETOROLAC TROMETHAMINE 30 MG/ML VIAL IVP (00:36)
[2025-02-16 00:58] LABS: Troponin I High Sensitivity 6.4 pg/mL (4.0-76.1)
[2025-02-16] MEDS: 0.9 % SODIUM CHLORIDE 1,000 ML 1000 ML IV (01:45)
[2025-02-16] MEDS: ORPHENADRINE 60 MG/2 ML VIAL IV (02:02)
[2025-02-16] MEDS: PANTOPRAZOLE SODIUM 40 MG VIAL IV (02:02)
== END 2025-02-16 02:40 | disposition home or self-care (01) ==
PROVIDERS: Emergency Provider Emergency Medicine; PCP Nurse Practitioner
DX: R07.89 Other chest pain (principal); E46 Unspecified protein-calorie malnutrition; I95.9 Hypotension, unspecified; R20.2 Paresthesia of skin
CPT/HCPCS: 36415; 71045; 80048; 83880; 84484; 85025; 93005; 96374; 96375; 99285; J1885; J2360

== ENCOUNTER 2025-04-20 11:20 | Emergency (ER) | payer OTHER, SELFPAY ==
[2025-04-20] VITALS (22 sets, daily range): BP systolic 98–121; BP diastolic 67–73; PULSE 103–116; TEMP 36.9; O2SAT 89–96; BMI 23.4
--- OUTSIDE RECORDS SUMMARY | 2025-04-20 11:31 | XMS_ITS | CCD ---
Author Organization [facility] Care Team Providers Care Preschool Paraprofessional Name Role Phone DIPESH, SANIYA M Admitting [...] SANIYA Attending Unavailable DIPESH, SANIYA Admitting Unavailable BANSLA, DR ELOY Calero Primary Care Unavailable DIPESH, [...] Calero Consulting Unavailable SAMSA, TYSHAWN Consulting Unavailable NIMISHA, DR ELOY Calero Primary Care Unavailable WEST, DR ARMANDO Gooden Consulting Unavailable SAMSA, TYSHAWN Attending Unavailable SAMSA, TYSHAWN Admitting Unavailable SAMSA, TYSHAWN Consulting Unavailable NIMISHA, DR ELOY Calero Primary Care Unavailable ALESSIA DURHAM Attending Unavailable HERMINIO, ALESSIA Admitting Unavailable MARKER, DR WHITTINGTON Consulting Unavailable HERMINIO, ALESSIA Consulting Unavailable ARMANDO ZULETA Consulting Unavailable NIMISHA, DR ELOY Calero Primary Care Unavailable NIMISHA, DR EOLY Calero Consulting Unavailable NIMISHA, DR ELOY Calero Attending Unavailable BANSAL, DR ELOY Calero Admitting Unavailable URIOSTEGUI, TAMIE Consulting Unavailable NIMISHA, DR ELOY Calero Primary Care Unavailable SAMSA, TYSHAWN Attending Unavailable SAMSA, TYSHAWN Admitting Unavailable SAMSA, TYSHAWN Consulting Unavailable NIMISHA, DR ELOY Calero Primary Care Unavailable SAMSA, TYSHAWN Attending Unavailable SAMSA, TYSHAWN Admitting Unavailable SAMSA, TYSHAWN Consulting Unavailable BANSAL, DR [...] able Eloy Bansal MD Primary Care Provider [phone] Jailyn Douglas Primary Care Physician CELSO IBARRA Attending Unavailable ELOY BANSAL Primary Care Unavailable CELSO IBARRA Attending Unavailable ELOY BANSAL Primary Care Unavailable Deyvi, HIGH SCHOOL SPECIAL EDUCATION TEACHER Jailyn L Referring Unavailable NILLBenji Attending Unavailable Deyvi, HIGH SCHOOL SPECIAL EDUCATION TEACHER Jailyn L Attending Unavailable Deyvi, HIGH SCHOOL SPECIAL EDUCATION TEACHER Jailyn Seymour Attending Unavailable Deyvi, HIGH SCHOOL SPECIAL EDUCATION TEACHER Jailyn Seymour Attending Unavailable Deyvi, HIGH SCHOOL SPECIAL EDUCATION TEACHER Jailyn Seymour Attending Unavailable Eloy Bansal MD Primary Care Provider [phone] CARRI MCKEON Attending Unavailable DEYVIFARTUNDI Referring Unavailable CARRI MCKEON Attending Unavailable DENICE MORENO Attending Unavailable DENICE MORENO Admitting Unavailable DENICE MORENO Attending Unavailable DENICE MORENO Referring Unavailable BULL LEARY Attending Unavailable CARLEEN VALDEZ Attending Unavailable DENICE MORENO Attending Unavailable Allergies Allergy Classification Reported Allergen(s) Allergy Type Date of Onset Reaction(s) Facility (1 source) No Known Medication Allergies; Translations: [No Known Medication Allergies] Propensity to adverse reactions (disorder) [facility] Repository Medications Current Medications Medication Drug Class(es) Dates Sig (Normalized) Sig (Original) [id number] 200 actuat albuterol 0.09 mg/actuat metered dose inhaler (9 sources) beta2-Adrenergic Agonist take 2 puff(s) by mouth every four hours as needed albuterol HFA 90 mcg/act inhaler INHALE 2 PUFFS BY MOUTH EVERY 4 HOURS NEEDED FOR SHORTNESS OF BREATH Active take 2 puff(s) by in halation every four hours albuterol (ProAir HFA) 90 [...] aspirin 81 mg delayed release oral tablet (10 sources) Platelet Aggregation Inhibitor, Nonsteroidal Anti-inflammatory Drug Start: 04-19-20 take 1 mg by mouth once daily aspirin 81 mg Oral EC Tab mg tab(s), Oral, Daily, Refills(s) 0 Start Date: 04/19/24 Status: Ordered atorvastatin 40 mg oral tablet (10 sources) HMG-CoA Reductase Inhibitor Start: 04-19-20 End: 12-01-19 take 1 tablet by mouth in the morning atorvastatin (Lipitor) 40 MG tablet Take 40 mg by mouth in the morning. 04/19/2024 11/30/2025 Active Dulera 200 mcg-5 mcg/inh inhalation aerosol (1 source) Start: 04-19-20 take 2 puff(s) by mouth twice daily [...] tablet (1 source) Histamine-2 Receptor Antagonist Start: 04-19-20 take 1 tablet by mouth twice daily famotidine 20 mg Tab TAKE 1 TABLET BY MOUTH TWICE A DAY Start Date: 04/19/24 Status: Ordered 60 actuat formoterol fumarate 0.005 mg/actuat / mometasone furoate 0.2 mg/actuat metered dose inhaler (9 sources) Corticosteroid, beta2-Adrenergic Agonist take 2 puff(s) by mouth twice daily Dulera 200-5 MCG/ACT inhaler INHALE 2 PUFFS BY MOUTH TWICE DAILY. RINSE AFTER USE Active take 2 puff(s) by in halation twice daily mometasone-formoterol (Dulera) 200-5 mcg/actuation inhaler Inhale 2 puffs 2 times a day. Active meclizine hydrochloride 25 m g oral tablet (6 sources) Antiemetic meclizine (Antiv ert) 25 mg tablet Take by mouth. TAKE DIRECTED. Active Meclizine HCl - 25 MG Oral Tablet TAKE DIRECTED. Quantity: 0 Refills: 0 Ordered: 13-May-2022 DO Active 24 hr metoprolol succinate 25 mg extended release oral tablet (10 sources) beta-Adrenergic Maverick Start: 04-19-2024 metopr olol succinate 25 mg ER Tab 12.5 mg = 0.5 tab(s), Oral, Daily, Refills(s) 0 Start Date: 04/19/24 Status: Ordered take 1 tablet by mouth once marisol y metoprolol succinate XL (Toprol-XL) 25 mg 24 hr tablet Take 1 tablet (25 mg) by mouth once daily. Active Oxygen (3 sources) oxygen (O2) gas Inhale 1.5 L/min at bedtime Active pantoprazole 40 mg delayed release oral tablet (1 source) Proton Pump Inhibitor Start: 4 take 1 tablet by mouth once daily Pantoprazole [address] Tab 40 mg = 1 tab(s), Oral, Daily, # 90 tab(s), Refills(s) 1, Pharmacy: [facility]/pharmacy #[id number], 176, cm, 04/19/24 13:00:00 EDT, Height/Length Dosing, 79, kg, 04/19/24 13:00:00 EDT, Weight Dosing Start Date: 04/19/24 Status: Ordered sacubitril 24 mg / valsartan 26 mg oral tablet (10 sources) Angiotensin 2 Receptor Maverick Start: 5 End: 6 take 0.5 tablet by mouth in the morning sacubitril-valsartan (Entresto) 24-26 MG tablet Take 0.5 tablets by mouth in the morning and 0.5 tablets in the evening. 11/30/2024 11/30/2025 Active Start: 04-19-2024 take 0.5 tablet by m outh at bedtime Entresto 24 mg-26 mg oral tablet TAKE 1/2 TABLET BY MOUTH IN THE MORNING AND AT BEDTIME. Start Date: 04/19/24 Status: Ordered take 1 tablet by mouth once marisol y sacubitriL-valsartan (Entresto) 24-26 mg tablet Take 1 tablet by mouth once daily. Active 60 actuat tiotropium 0.0025 mg/actuat inhalation spray (10 sources) Anticholinergic Start: 04-19-2024 take 2 puff(s) by inhalation once daily Spiriva Respimat 60 ACT 2.5 mcg/inh inhalation aerosol INHALE 2 PUFFS INTO THE LUNGS EVERY DAY FOR 30 DAYS Start Date: 04/19/24 Status: Ordered take 2 puff(s) by inhalation onc e daily Spiriva Respimat 2.5 MCG/ACT inhaler 2 puffs Daily Active take 2 puff(s) by inhalation onc e [...] [Coronary atherosclerosis of unspecified type of vessel, [place] or graft] Onset: 10-25-2022 07-10-2023 Chronic Disorders [...] D/O MITRAL TRICUSPID VALV] Onset: 12-02-2021 Chronic Hemorrhoids (6 sources) Thrombosed external hemorrhoids; Translations: [Perianal venous thrombosis] Onset: 03-04-2025 03-04-2025 Episodic Other lower respiratory disease (4 sources) Multiple [...] 10-14-2021 Episodic Other aftercare (1 source) Other residential (current) drug therapy; Translations: [OTH HOSPICE SOCIAL WORKER CURRENT DRUG THERAPY] Onset: 10-14-2021 Episodic Other connective tissue disease (1 source) Pain in arm, unspecified; Translations: [PAIN IN ARM UNSPECIFIED] Onset: 10-29-2021 Episodic Other ear and sense organ disorders (1 source) Tinnitus, unspecified ear; Translations: [TINNITUS UNSPECIFIED EAR] Onset: 06-11-2022 Episodic Other lower respiratory disease (4 sources) Other forms of dyspnea; Translations: [OTHER FORMS OF DYSPNEA] Onset: 11-27-2021 Episodic Other lower respiratory disease (2 sources) Shortness of breath; Translations: [Shortness of breath] Onset: 11-30-2024 Episodic Other screening for suspected conditions (not mental disorders or infectious disease) (1 source) Encounter for screening for malignant neoplasm of respiratory organs; Translations: [ENC SCREEN MALIG NEOPLASM RESP ORGN] Onset: 03-29-2022 Episodic Results Test Name Value Interpretation Reference Range Facility 36on 03-13-2025 36 Pt informed Normal [facility] Ambulatory Visit Summaryon 0 02-26-2025 Ambulatory Visit Summary Ambulatory Visit Summary MIKE LOPEZ :1960 Visit Date:02/26/2025 Ambulatory Visit Instructions Your Diagnosis Thrombosed external hemorrhoid Your Care Team Attending Physician - Jailyn Blanc Primary Care Physician - Jailyn Blanc This Is Your Medications List albuterol (Albuterol (Eqv-Ventolin HFA) 90 mcg/inh inhalation aerosol) albuterol-ipratropium (albuterol-ipratropium Inh Judi 3 mL UD) aspirin (aspirin 81 mg Oral EC Tab) atorvastatin (atorvastatin 40 mg Tab) formoterol-mometasone (Dulera 200 mcg-5 mcg/inh inhalation aerosol) metoprolol (metoprolol succinate 25 mg ER Tab) sacubitril-valsartan (Entresto 24 mg-26 mg oral tablet) tiotropium (Spiriva Respimat 60 ACT 2.5 mcg/inh inhalation aerosol) Procedures Performed Arthroscopy of knee, Biopsy of lung, Cardiac catheterization, Excision of Villalobos's cyst of knee, Meniscal repair. Discharge Vitals Temperature (Oral) 36.6 ???C Heart Rate (Peripheral) 104 Respiratory Rate 18 Blood Pressure 126/70 Height 176.0 cm Height 69 in Weight 72.0 kg Weight 158.733 lb BMI 23.24 What to do next Someone Will Contact You Regarding These Appointments [facility] Ambulatory Referral, Patient choice/referral by family/friend, Surgery, [facility] Surgery-thrombosed hemorrhoid, 02/26/25 13:35:00 EDT, Thrombosed external hemorrhoid Medications What How Much When Instructions Unchanged albuterol (Albuterol (Eqv-Ventolin HFA) 90 [...] 1 TABLET BY MOUTH EVERY DAY Unchanged formoterol-mometasone (Dulera 200 mcg-5 mcg/ [...] arteriosclerosis Erectile dysfunction Hyperlipidemia Hypertension Overweight Smoker Thrombosed external hemorrhoid Wheezing Patient Survey You may receive a survey via text or e-mail asking about your office visit. Please share your experience with us by completing your survey. We appreciate your feedback and thank you for choosing us for your care. Patient Portal You may access all of your results and other medical record information on our secure patient portal. If you are not signed up for this yet, please contact [employer] at [phone] to get signed up today. Language Information Language assistance services are available as needed. Virgil Chan [facility] Family Medicine Office/Clini c Noteon 02-26-2025 Family Medicine Office/Clinic Note Family Medicine Office/Clinic Note HPI Staff Patient is presenting for possible hemorrhoids Onset: late Tuesday into Tuesday Tried nothing History of Present Illness pt presents today with c/o very painful hemorrhoid Review of Systems PHQ Score Initial Depression Screen Score: 0 SCORE Physical Exam Vitals & Measurements T: 36.6 ???C(Oral) HR: 104(Peripheral) RR: 18 BP: 126/70 SpO2: 94% HT: 176.0 cm HT: 69 in WT: 72.0 kg WT: 158.733 lb BMI: 23.24 General: alert, no acute distress ENMT: oral mucosa moist, no pharyngeal erythema or exudate Cardiovascular: regular rate and rhythm, normal peripheral perfusion Respiratory: Lungs CTA, respirations non labored Extremities: no deformity, no trauma Neurological: oriented x 4, LOC appropriate for age, CN II-XII intact, motor strength equal & normal bilaterally, speech normal Assessment/Plan 1. Thrombosed external hemorrhoid (K64.5: Perianal venous thrombosis) pt presents today with severe rectal pain. he thinks it a hemorrhoid but isn't sure. is not having any bleeding or constipation but when he wipes it is very very painful. hemorrhoid the size of a small grape was noted which is purple in color. will send referral to general surgery [facility] for further evaluation. will send in cream to shrink hemorrhoid and to help with pain. all questions answered. RTC as needed Ordered: mineral oil/petrolatum/phenyle phrine topical, 1 chloé, Rectal, BID, 28 gm, Refill(s) 0, clean affected area before application[id number], cm, 02/26/25 13:26:00 EDT, Height/Length Dosing, 72, kg, 02/26/25 13:26:00 EDT, Weight Dosing nitroglycerin, 1 chloé, Rectal, q12hr, 30 gm, Refill(s) 0, wash hands immediately after application, [id number], [facility], cm, 02/26/25 13:26:00 EDT, Height/Length Dosing, 72, kg, 02/26/25 13:26:00 EDT, Weight Dosing [facility] External Ambulatory Referral 2. BMI 23.0-23.9, adult (Z68.23: Body mass index [BMI] 23.0-23.9, adult) BMI education Follow-up No qualifying data available Problem List/Past Medical History Ongoing Abdominal pain, right upper quadrant Acid reflux BMI 23.0-23.9, adult BMI 25.0-25.9,adult Cholelithiasis Chronic hypoxemic respiratory failure Chronic systolic heart failure COPD (chronic obstructive pulmonary disease) Coronary arteriosclerosis Erectile dysfunction Hyperlipidemia Hypertension Overweight Smoker Thrombosed external hemorrhoid Wheezing Historical No qualifying data Procedure/Surgical History Arthroscopy of knee, Biopsy of lung, Cardiac catheterization, Excision of Villalobos's cyst of knee, Meniscal repair. Medications Albuterol (Eqv-Ventolin HFA) 90 mcg/inh inhalation aerosol albuterol-ipratropium Inh Judi 3 mL UD aspirin 81 mg Oral EC Tab, Oral, Daily atorvastatin 40 mg Tab Dulera 200 mcg-5 mcg/inh inhalation aerosol Entresto 24 mg-26 mg oral tablet Hemorrhoidal 14%-74.9%-0.25% rectal ointment, 1 chloé, Rectal, BID metoprolol succinate 25 mg ER Tab, 12.5 mg= 0.5 tab(s), Oral, Daily Rectiv 0.4% rectal ointment, 1 chloé, Rectal, q12hr Spiriva Respimat 60 ACT 2.5 mcg/inh inhalation aerosol Allergies No Known Allergies No Known Medication Allergies Social History Alcohol - Denies Alcohol Use, 05/14/2024 Past. Beer, Liquor. Several times per day., 01/30/2025 Substance Abuse Current. Marijuana. 3-5 times per week. Previous treatment: None., 01/30/2025 Tobacco 5-9 cigarettes (between 1/4 to 1/2 pack)/day in last 30 days Tobacco Use:., 02/26/2025 Family History Family history is negative Normal [facility] Comment on above: Result Comment: Elec tronically Signed By: Jailyn Blanc\.br\Date and Time Signed: 02/26/25 14:53 EDT Family Medicine Office/Clini c Noteon 01-30-2025 Family [...] day(s), # 7 tab(s), Refills(s) 0, Pharmacy: [facility]/pharmacy #[id number], 176, cm, 01/30/25 14:03:00 EDT, Height/Length Dosing, 74.8, kg, 01/30/25 14:03:00 EDT, Weight Dosing 2. COPD (chronic obstructive pulmonary disease) (J44.9: Chronic obstructive pulmonary disease, unspecified) kenalog given in office Ordered: levofloxacin, 750 mg = 1 tab(s), Oral, Daily, X 7 day(s), # 7 tab(s), Refills(s) 0, Pharmacy: [facility]/pharmacy #[id number], 176, cm, 01/30/25 14:03:00 EDT, Height/Length Dosing, 74.8, kg, 01/30/25 14:03:00 EDT, Weight Dosing 3. BMI 24.0-24.9, adult (Z68.24: Body mass index [BMI] 24.0-24.9, adult) BMI education Ordered: levofloxacin, 750 mg = 1 tab(s), Oral, Daily, X 7 day(s), # 7 tab(s), Refills(s) 0, Pharmacy: [facility]/pharmacy #[id number], 176, cm, 01/30/25 14:03:00 EDT, Height/Length Dosing, 74.8, kg, 01/30/25 14:03:00 EDT, Weight Dosing 4. Non-smoker (Z78.9: Other specified health status) continue not smoking Ordered: levofloxacin, 750 mg = 1 tab(s), Oral, Daily, X 7 day(s), # 7 tab(s), Refills(s) 0, Pharmacy: [facility]/pharmacy #[id number], 176, cm, 01/30/25 14:03:00 EDT, Height/Length Dosing, 74.8, kg, 01/30/25 14:03:00 EDT, Weight Dosing Orders: pantoprazole, See Instructions, TAKE 1 TABLET BY MOUTH EVERY DAY, # 90 tab(s), Refills(s) 1, Pharmacy: [id number], 176, cm, 05/17/24 14:44:00 EDT, Height/Length Dosing, [...] 01/30/2025 Family History Family history is negative Normal [facility] Comment on above: Result Comment: Elec tronically Signed By: Jailyn Blanc\.br\Date and Time Signed: 01/30/25 14:21 EDT 36on 01-21-2025 36 Regarding echo resul t from 01/15/2025: MD Bhavna Marinelli MA Please tell him that the cardiac function is relatively stable. I will not make changes at this time and I will see him in follow-up in 1 year. Patient informed. Normal [facility] Office Visiton 11-30-2024 Follow-up visit [id number] Mike Lopez 1960 M Date Provider Department Center 11/30/2024 CARLEEN TINSLEY [facility] Family History Problem Relation Age of Onset Cancer Mother Family Status - Relation Status Age at Mother Level of Service:39491 ND OFFICE/OUTPATIENT ESTABLISHED MOD MDM 30 MIN Normal [facility] Office Visiton 08-22-2024 Follow-up visit [id number] Mike Lopez 1960 M Date Provider Department Center 08/22/2024 454-DENICE MORENO [facility] SURG [place] Family History Problem Relation Age of Onset Cancer Mother Family Status - Relation Status Age at Mother Level of Service:27669 ND POSTOP FOLLOW UP VISIT RELATED TO ORIGINAL PX Reason for Visit and Comments: Post-op [483] - Mike is here today for post op visit: alculus of gallbladder, s/p 08/10/24 LAP MIGUELINA Normal [facility] Anesthesiaon 08-10-2024 Anesthesia [id number] Mike Lopez 1960 Provider Department Center 08/10/2024 TANMAY TIRADO [facility] OR [facility] Family History Problem Relation Age of Onset Cancer Mother Family Status - Relation Status Age at Mother [facility] HISTOLOGY - TISSUE EXAMon LAB AP [facility] Comment on above: Order Comment: Pre-o p diagnosis:Calculus of gallbladder without cholecystitis without obstruction [K80.20] Result Comment: Surg ical Pathology Case: [id number] Authorizing Provider: Denice Moreno MD Collected: 08/10/2024 1443 Ordering Location: [facility] Main Operating Room Received: 08/10/2024 1503 Pathologist: Ese Maher MD Specimen: Gallbladder, GALLBLADDER Performed By: #### L [id number] ####[facility] (BEAKER)[address] [place] [address] LAB AP CLINICAL INFORMATION Normal [facility] Comment on above: Order Comment: Pre-o p diagnosis:Calculus of gallbladder without cholecystitis without obstruction [K80.20] Result Comment: Post -Op Diagnoses K80.20 - Calculus of gallbladder without cholecystitis without obstruction [ICD-10-CM] Performed By: #### L [id number] ####[facility] ([facility])[address] [place] [place] [address] LAB AP GROSS DESCRIPTION A. Gallbladder. [facility] Comment on above: Order Comment: [...] has an average thickness of 0.1 cm. [employer] sections are submitted as follows: Cassette summary: A1: Cystic duct margin, en face and neck A2: Body and fundus Yadira Carcamo, Pathologists' Accredited Legal Secretary Student Performed By: #### L [id number] ####[facility] ([facility])[address] [place] [address] LAB AP MICROSCOPIC DESCRIPTION Microscopic examination performed. [facility] Comment on above: Order Comment: Pre-o p diagnosis:Calculus of gallbladder without cholecystitis without obstruction [K80.20] Performed By: #### L [id number] ####[facility] ([facility])[address] [place] [address] LAB AP REPORT FINAL DIAGNOSIS NARRATIVE [place] Comment on above: Order Comment: Pre-o p diagnosis:Calculus of gallbladder without cholecystitis without obstruction [K80.20] Result Comment: A. G allbladder, cholecystectomy: - Chronic cholecystitis with cholelithiasis. Performed By: #### L [id number] ####[facility] (SHARI)[address] [facility] [place] [address] HPon 08-10-2024 HP History Of Present Illness Mike Lopez is a 63 y.o. male presenting with cholelithiasis and chronic cholecystitis. He has been advised to have cholecystectomy. His abdominal pain remains under control at this time, occasionally will have some discomfort. His special events assistant has seen him and cleared him for [...] obstruction Debbie Burgess MD General Surgery Resident [facility] NURSNOTEon 08-10-2024 NURSNOTE Discharge instructio ns discussed with pt and pt's . Stated understanding. Prescription given and sent home with pt. [facility] OPNOTEon 08-10-2024 OPNOTE LAPAROSCOPIC CHOLECYSTECTOMY Operative Note Date: 08/10/2024 Location: [facility] OR Name: Mike Lopez, : 1960, Diagnosis Pre-op Diagnosis * Calculus of gallbladder without cholecystitis without obstruction [K80.20] Post-op Diagnosis * Calculus of gallbladder without cholecystitis without obstruction [K80.20] Procedures LAPAROSCOPIC CHOLECYSTECTOMY 20819 - ND LAPS SURG CHOLECYSTECTOMY W/CHOLANGIOGRAPHY Surgeons Primary: Denice Moreno MD Resident - Assisting: Panfilo Burgess MD Procedure Summary Anesthesia: General ASA: IV Estimated Blood Loss: Minimal Total IV Fluids: 500 mL Drains: * None in log * Specimens ID Source Type Tests Collected By Collected At Frozen? Priority Lab ID A Gallbladder Tissue HISTOLOGY - TISSUE EXAM Denice Moreno MD 08/10/24 1443 No [id number] Description: GALLBLADDER Staff: Traffic Or System Dispatcher: Clark Bonner RN; Osman Jacobs RN Relief Scrub: Vianca Faria, POPPY Scrub Person: Ruba Petty, POPPY Indications: Mike Lopez is an 63 y.o. [...] - hemodynamically stable. Condition: stable Denice Moreno [facility] POCT GLUCOSE METER UNSOLICIT ED RESULTSon 08-10-2024 Glucose [Mass/Vol] 99 mg/dL Normal 70-105 [facility] Comment on above: Order Comment: Waive d Testing in the ED is performed under the ED CLIA certificate #[id number]. Result Comment: rfit ch2 Performed By: #### L [id number] ####[facility] ([facility]AKER)[address] [place] [address] 36on 07-12-2024 36 ----- Message ----- From: Bull Leary NP Sent: 06/27/2024 2:48 PM EDT To: Julieta Boyd MA Subject: RE: Import I called. They said the time frame for peer to peer is out of the time window. Unfortunately, let the patient know his insurance denied the ECHO and we can try again in a few months. Thanks LM on VM. [facility] Consulton 06-26-2024 Consult [id number] Mike Lopez 1960 M Date Provider Department Center 06/26/2024 DENICE DIAZ [facility] SURG [place] Family History Problem Relation Age of Onset Cancer Mother Family Status - Relation Status Age at Mother Level of Service:85968 ND OFFICE/OUTPATIENT NEW LOW MDM 30 MINUTES Reason for Visit and Comments: Consult [484] - Mike is here today for consult: Calculus of gallbladder, S/P CT abdomin and pelvis [facility] Office Visiton 05-23-2024 Follow-up visit [id number] Mike Lopez 1960 M Date Provider Department Center 05/23/2024 [facility] Family History Problem Relation Age of Onset Cancer Mother Family Status - Relation Status Age at Mother Level of Service:26862 ND OFFICE/OUTPATIENT ESTABLISHED MOD MDM 30 MIN Reason for Visit and Comments: Congestive Heart Failure [127] [facility] Ambulatory Visit Summaryon 0 05-17-2024 Ambulatory Visit Summary Ambulatory Visit Summary MIKE LOPEZ :1960 Visit Date:05/17/2024 Ambulatory Visit Instructions Your Diagnosis Cholelithiasis BMI 25.0-25.9,adult Overweight Smoker Your Care Team Attending Physician - Jailyn Blanc Primary Care Physician - Jailyn Blanc This Is Your Medications List albuterol [...] for choosing us for your care. Normal [facility] Family Medicine Office/Clini c Noteon 05-17-2024 Family [...] gallbladder removed once he is cleared by carnick and pulm. his gallbladder is nearly full [...] Family History Family history is negative Normal [facility] Comment on above: Result Comment: Elec tronically Signed By: Jailyn Blanc\.br\Date and Time Signed: 05/17/24 15:00 EDT Ambulatory Visit Summaryon 0 04-19-2024 Ambulatory Visit Summary Ambulatory Visit Summary MIKE LOPEZ :1960 Visit Date:04/19/2024 Ambulatory Visit Instructions Your Diagnosis Gallstones Acid reflux BMI 25.0-25.9,adult Overweight Smoker Your Care Team Attending Physician - Jailyn Blanc Primary Care Physician - MARIELOS TRINIDAD, [...] Follow-Up Appointments 2023 2:40 PM EDT With: Jailyn Blanc Where: [address] [address]- Medications What How Much When Why Instructions New pantoprazole (Pantoprazole [address] Tab) 1 Tablets By Mouth Every day Gallstones Acid reflux BMI 25.0-25.9,adult Overweight Smoker Refills: 1 Pickup at [facility]/pharmacy #[id number] Unchanged albuterol (Albuterol (Eqv-Ventolin HFA) 90 [...] EVERY DAY FOR 30 DAYS Pharmacy Information [facility]/pharmacy #[id number]: [address], [place] [id number] [phone] Allergies No Known Medication Allergies Problems Ongoing [...] for choosing us for your care. Normal [facility] Family Medicine Office/Clini c Noteon 04-19-2024 Family Medicine Office/Clinic Note Family Medicine Office/Clinic Note Chief Complaint Establish Care HPI Staff Pt is here today to establish care. 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 Bansal Any recent labs: [facility] ER 03/11/24 Health Maintenance UTD: Colonoscopy: denies PSA: denies Acute: Current issues/complaints: abdominal problems: [facility] ER 03/11/24. CC: abdominal pain CT performed. [...] best. order for u/s of gallbladder to [facility] provided and faxed. RTC 1 months for follow up. may consider lipid panel Ordered: pantoprazole, 40 mg = 1 tab(s), Oral, Daily, # 90 tab(s), Refills(s) 1, [id number], 176, cm, 04/19/24 13:00:00 EDT, [...] Daily, # 90 tab(s), Refills(s) 1, [id number], 176, cm, 04/19/24 13:00:00 EDT, Height/Length Dosing, 79, kg, 04/19/24 13:00:00 EDT, Weight Dosing 3. BMI 25.0-25.9,adult (Z68.25: Body mass index [BMI] 25.0-25.9, adult) BMI education given Ordered: pantoprazole, 40 mg = 1 tab(s), Oral, Daily, # 90 tab(s), Refills(s) 1, [id number], 176, cm, 04/19/24 13:00:00 EDT, Height/Length Dosing, 79, kg, 04/19/24 13:00:00 EDT, Weight Dosing 4. Overweight (E66.3: Overweight) see above Ordered: pantoprazole, 40 mg = 1 tab(s), Oral, Daily, # 90 tab(s), Refills(s) 1, [id number], 176, cm, 04/19/24 13:00:00 EDT, Height/Length Dosing, 79, kg, 04/19/24 13:00:00 EDT, Weight Dosing 5. Smoker (F17.200: Nicotine dependence, unspecified, uncomplicated) consider not smoking Ordered: pantoprazole, 40 mg = 1 tab(s), Oral, Daily, # 90 tab(s), Refills(s) 1, Pharmacy: [facility]/pharmacy #[id number], 176, cm, 04/19/24 13:00:00 EDT, Height/Length [...] 1/2 pack (more content not included)... Normal [facility] Comment on above: Result Comment: Elec tronically Signed By: Jailyn Blanc\.munir\Date and Time Signed: 04/19/24 13:32 EDT Office [...] discussion of perhaps a cardiomyopathy. No h/o LA. Patient had a prior drinking history many [...] by: ARMANDO GALARZA Date: 2022-09-22 15:11 Normal [facility] CBCon 06-28-2022 Erythrocyte distribution width (RBC) [Ratio] 12.8 % Normal 11.5 - 14.5 [facility] Comment on above: Performed By: #### C BC #### [address] [address] Hematocrit (Bld) [Volume fraction] 48.1 % Normal 41.0 - 52.0 [facility] Comment on above: Performed By: #### C BC #### [address] [address] Hemoglobin (Bld) [Mass/Vol] 16.4 g/dL Normal 13.5 - 17.5 [facility] Comment on above: Performed By: #### C BC #### [address] [address] MCHC (RBC) [Mass/Vol] 34.1 g/dL Normal 32.0 - 36.0 [facility] Comment on above: Performed By: #### C BC #### [address] [address] MCV (RBC) [Entitic vol] 93 fL Normal 80 - 100 [facility] Comment on above: Performed By: #### C BC #### [address] [address] NUCLEATED RBC 0.0 /100 WBC Normal 0.0 - 0.0 [facility] Comment on above: Performed By: #### C BC #### [address] [address] Platelets (Bld) [#/Vol] 189 10*3/uL Normal 150 - 450 [facility] Comment on above: Performed By: #### C BC #### [address] [address] RBC 5.18 x10E12/L Normal 4.50 - 5.90 [facility] Comment on above: Performed By: #### C BC #### [address] [address] WBC (Bld) [#/Vol] 8.3 10*3/uL Normal 4.4 - 11.3 [facility] Comment on above: Performed By: #### C BC #### [address] [address] CHEST 1 VIEWon 06-28-2022 CHEST 1 VIEW Patient Name: MIKE LOPEZ STUDY: CHEST 1 VIEW; 06/28/2022 2:43 pm INDICATION: left lung biopsy . COMPARISON: 10/12/2021 ACCESSION NUMBER(S): [id number] ORDERING CLINICIAN: EDUARDO MAS FINDINGS: CARDIOMEDIASTINAL SILHOUETTE: [...] pneumothorax. Electronically signed by: RAMONA ONEAL MD [facility] CHEST 1 VIEW Patient Name: MIKE LOPEZ STUDY: CHEST 1 VIEW; 06/28/2022 1:41 pm INDICATION: Left lung biopsy . COMPARISON: 06/28/2022 ACCESSION NUMBER(S): [id number] ORDERING CLINICIAN: EDUARDO MAS FINDINGS: DEVICES: None CARDIOMEDIASTINAL SILHOUETTE: Cardiomediastinal silhouette is normal in size and configuration.Right-si ded aortic arch. No significant atherosclerotic calcification LUNGS: Improved opacity in the left upper lobe since yesterday. No pneumothorax. No pleural effusion. BONES: No acute osseous changes. IMPRESSION: 1. Interval improvement left apical focal opacity since yesterday. No pneumothorax. Electronically signed by: RAMONA ONEAL MD [facility] IN BIOPSY LUNG PERCUTANEOUS NEEDLEon 06-28-2022 IN BIOPSY LUNG PERCUTANEOUS NEEDLE Patient Name: MIKE LOPEZ STUDY: IN BIOPSY LUNG; PERCUTANEOUS NEEDLE; 06/28/2022 12:15 pm INDICATION: CT needle biopsy ANDRE R91.8: Multiple pulmonary nodules. COMPARISON: None. ACCESSION NUMBER(S): [id number] ORDERING CLINICIAN: CELSO IBARRA TECHNIQUE: DINING CAR STEWARD: Eduardo Mas MD CONSENT: The patient was [...] and versed. Total intra-service sedation time from 3899-2635 hours (25 minutes). The physician was assisted [...] Electronically signed by: EDUARDO MAS MD Normal [facility] PT/INRon 06-28-2022 PT Coag (PPP) [Time] 12.2 s Normal 9.8 - 13.4 [facility] Comment on above: Performed By: #### P TINR #### [address] [address] PT, INR 1.1 Normal 0.9 - 1.1 [facility] Comment on above: Performed By: #### P TINR #### [address] [address] [facility] Surgical Pathology Depar tmenton 06-28-2022 [facility] Surgical Pathology Department Name MIKE LOPEZ Pathologist: Katelynn Cyr MD, Ph.D. Date of Procedure: 06/28/2022 Date Received: 06/28/2022 Date Reported 07/01/2022 Submitting Physician: CELSO IBARRA DO Location: [facility] Copy To/Referring/Attending : EDUARDO MAS MD Other External # FINAL DIAGNOSIS LUNG, LEFT UPPER LOBULE NODULE, BIOPSY: --MINUTE FRAGMENT OF LUNG PARENCHYMA WITHOUT SIGNIFICANT PATHOLOGIC FINDINGS, INSUFFICIENT FOR DIAGNOSIS. SEE NOTE Note: Microscopic examination of H AND E sections demonstrates minute fragments of lung parenchyma without significant abnormalities. Findings might not be sales representative electric service of the clinically identified lesion. Clinical correlation is recommended Electronically Signed Out By Katelynn Cyr MD, Ph.D./MAC By the signature on this report, the individual or group listed as making the Final Interpretation/Diagnos is certifies that they have reviewed this case. Diagnostic interpretation performed at [address] [place] [address] Clinical History: Physician Contact Number: [phone] Fixative (A): Formalin Clinical Diagnosis History LEFT LUNG NODULE Specimens Submitted As: A: LEFT UPPER LUNG NODULE Gross Description: Received in formalin, labeled with the patient?s name and hospital number and left lung nodule bx , are multiple minute pink-white, soft tissue fragments aggregating to 0.3 x 0.2 x 0.1 cm. The specimen is submitted in toto in one cassette. RCC rcc/06/28/2022 [facility] Department of Pathology [address] [place] [address] Normal [facility] Comment on above: Performed By: #### U [facility] #### [facility] Surgical Pathology Department [address] [place] [address] MRI BRAIN WO CONon 2 MRI BRAIN [...] by: TAMIE URIOSTEGUI Date: 2022-06-09 13:29 Normal [facility] HEMOGLOBINon 05-21-2022 Hemoglobin (Bld) [Mass/Vol] 15.7 g/dL Normal 14.0-18.0 [facility] Comment on above: Performed By: #### B #### [facility] [address] [place] [address] Dr. Richard Linares Office Visit (Thoracic and [...] Capacity DLCO; Status:Active - Retrospective Authorization; Requested for:13May2022; Pre/PostBronchodilator Spirometry; Status:Active - Retrospective Authorization; Requested for:[id number]; Provider Impressions Mr. Lopez is a pleasant [...] discussion of perhaps a cardiomyopathy. No h/o [place]. Patient had a prior drinking history many [...] (Z80.9) Father (more content not included)... Normal [employer] Tobacco Screening.on 022 Fall risk assessment a) No falls within the last year -Cardiology- [place] [address] Work Phone: Tobacco use status [facility] a) Yes -Cardiology- [place] [address] Work Phone: FUNGAL AB QUANTITAIVE DOUBLE IMMUNODIFFUon 04-17-2022 Aspergillus flavus Negative Normal Neg:<1:[address] [facility] Comment on above: Performed By: #### C [facility] #### [facility] [address] [place] [address] Dr. Richard Linares Aspergillus fumigatus Negative Normal Neg:<1:1 [facility] Comment on above: Performed By: #### C VDTBH #### [facility] [address] [place] [address] Dr. Richard Linares Aspergillus niger Negative Normal Neg:<1:1 [facility] Comment on above: Performed By: #### C VDTBH #### [facility] [address] [place] [address] Dr. Richard Linares Blastomyces Negative Normal Neg:<1:1 [facility] Comment on above: Performed By: #### C VDTBH #### [facility] [address] [place] [address] Dr. Richard Linares HISTOPLASMA CAP AB QUANT DID on 04-16-2022 Histoplasma Mycelial CF Ab. Negative Normal Neg:<1:2 [facility] Comment on above: Performed By: #### B MP #### [facility] [address] [place] [address] Dr. Richard Linares Histoplasma Yeast CF Ab 1:2 Normal Neg:<1:2 [facility] Comment on above: Performed By: #### B MP #### [facility] [address] [place] [address] Dr. Richard Linares ANTI NEUTROPHIL CYTOPLASMIC AB (ANCA) PRon 04-15-2022 Anti-MPO Antibodies <0.2 Normal 0.0-0.9 [facility] Comment on above: Result Comment: Perf ormed at: BN Performed By: #### B MP #### [facility] [address] [place] [address] Dr. Richard Linares Anti-PR3 Antibodies <0.2 Normal 0.0-0.9 [facility] Comment on above: Result Comment: Perf ormed at: BN Performed By: #### B MP #### [facility] [address] [place] [address] Dr. Richard Linares Atypical pANCA <1:20 Normal Neg:<1:20 [facility] Comment on above: Result Comment: The atypical pANCA pattern has been observed in a significant percentage of patients with ulcerative colitis, primary sclerosing cholangitis and autoimmune hepatitis. Performed at: CB Performed By: #### B MP #### [facility] [address] [place] [address] [address] Richard Linares Cytoplasmic (C-ANCA) <1:20 Normal Neg:<1:20 [facility] Comment on above: Result Comment: Perf ormed at: CB Performed By: #### B MP #### [facility] [address] [place] [address] [address] Richard Linares Perinuclear (P-ANCA) <1:20 Normal Neg:<1:20 [facility] Comment on above: Result Comment: The presence of positive fluorescence exhibiting P-ANCA or C-ANCA patterns alone is not specific for the diagnosis of Arnulfo's Granulomatosis (WG) or microscopic polyangiitis. Decisions about treatment should not be based solely on ANCA IFA results. The International ANCA Group Consensus recommends follow up testing of positive sera with both ND-3 and MPO-ANCA enzyme immunoassays. As many as 5% serum samples are positive only by EIA. Ref. AM J Clin Pathol 1999;111:507-513. Performed at: CB Performed By: #### B MP #### [facility] [address] [place] [address] Dr. Richard Linares CYCLIC CITRULLINATED PEPTIDE AB (CCP)on 04-15-2022 CCP Antibodies IgG/IgA 1 units Normal 0-19 [facility] Comment on above: Result Comment: Nega tive <20 Weak positive 20 - 39 Moderate positive 40 - 59 Strong positive >59 Performed By: #### C VDTBH #### [facility] [address] [place] [address] Dr. Richard Linares HISTOPLASMA GALACTOMANNAN AG URINEon 04-15-2022 Histoplasma Gal'madhuri Ag <0.5 Normal <0.5 ng/mL [facility] Comment on above: Performed By: #### H ISTGAL #### [facility] [address] [place] [address] Dr. Richard Linares OSCAR EIA W/REFLEX 5 BIOMARKER Son 04-14-2022 OSCAR Direct Negative Normal Negative [facility] Comment on above: Performed By: #### C VDTBH #### [facility] [address] [place] [address] Dr. Richard Linares ANGIOTENSION-CONVERTING ENZY ME (MATT)on 04-14-2022 MATT 15 U/L Normal 14-82 [facility] Comment on above: Performed By: #### A NGIOC #### [facility] [address] [place] [address] Dr. Richard Linares ANTISCLERODERMA ABon 022 Antiscleroderma-70 Antibodies <0.2 Normal 0.0-0.9 [facility] Comment on above: Performed By: #### A NSCLER #### [facility] [address] [place] [address] Dr. Richard Linares RHEUMATOID FACTORon 04-14-20 22 RA Latex Turbid. <10.0 Normal <14.0 [facility] Comment on above: Performed By: #### B MP #### [facility] [address] [place] [address] Dr. Richard Linares SED RATE WESTERGRENon 2021 SED RATE 1 mm/hr Normal <=20 [facility] Comment on above: Performed By: #### S EDR #### [facility] [address] [place] [address] Dr. Richard Linares PET CT SKULL BASE [...] by: ANGELITO MILAN Date: 2022-04-12 14:48 Normal [facility] CT LUNG CANCER SCREENINGon 0 03-25-2022 CT [...] by: ARMANDO GALARZA Date: 2022-03-25 08:22 Normal [facility] ECHOCARDIO M/2D COMPLETEon 0 03-24-2022 ECHOCARDIO M/2D COMPLETE Patient: MIKE LOPEZ Exam Date: 03/24/2022 : 1960 Gender:M Ordering : SANIYA LANDON Admission #: [id number] Family : DR ELOY BANSAL . Order #: [id number] CLICK HERE TO VIEW EXAM ECHOCARDIOGRAM REPORT [...] Lu M.D. on 03/24/2022 at 17:32 Normal [facility] PROF CHEM 8 (BAS METB)on Anion gap [Moles/Vol] 13.4 mmol/L Normal [facility] Comment on above: Performed By: #### C VDTBH #### [facility] [address] [place] [address] Dr. Richard Linares Calcium [Mass/Vol] 9.0 mg/dL Normal 8.5-10.1 [facility] Comment on above: Performed By: #### C VDTBH #### [facility] [address] [place] [address] Dr. Richard Linares Chloride [Moles/Vol] 102 mmol/L Normal 98-107 [facility] Comment on above: Performed By: #### C VDTBH #### [facility] [address] [place] [address] Dr. Richard Linares CO2 [Moles/Vol] 32.1 mmol/L Critically high 21.0-32.0 [facility] Comment on above: Performed By: #### C VDTBH #### [facility] [address] [place] [address] Dr. Richard Linares Creatinine [Mass/Vol] 1.00 mg/dL Normal 0.70-1.30 [facility] Comment on above: Performed By: #### C VDTBH #### [facility] [address] [place] [address] Dr. Richard Linares EGFR-AF KOSOVAN >=60 Normal >=60 [facility] Comment on above: Performed By: #### C VDTBH #### [facility] [address] [place] [address] Dr. Richard Linares EGFR-NON AF KOSOVAN >=60 Normal >=60 [facility] Comment on above: Performed By: #### C VDTBH #### [facility] [address] [place] [address] [address] Richard Linares Glucose [Mass/Vol] 109 mg/dL Critically high 74-106 T [facility] Comment on above: Performed By: #### C VDTBH #### [facility] [address] [place] [address] [address] Richard Linares Potassium [Moles/Vol] 4.5 mmol/L Normal 3.5-5.1 [facility] Comment on above: Performed By: #### C VDTBH #### [facility] [address] [place] [address] [address] Richard Linares Sodium [Moles/Vol] 143 mmol/L Normal 136-145 [facility] Comment on above: Performed By: #### C VDTBH #### [facility] [address] [place] [address] [address] Richard Linares Urea nitrogen [Mass/Vol] 11.0 mg/dL Normal 7.0-18.0 [facility] Comment on above: Performed By: #### C VDTBH #### [facility] [address] [place] [address] [address] Richard Linares Urea nitrogen/Creatinine [Mass ratio] 11.0 mg/mg Normal [facility] Comment on above: Performed By: #### C VDTBH #### [facility] [address] [place] [address] [address] Richard Linares Cardiovascular Lab Reporton 12-22-2021 Cardiovascular Lab Report [facility] [id number] Physician: Carleen Zuniga of [facility] Medicine Service Date: 12/21/2021 Division of Birthdate: 1960 Cardiology Room #: Adult Cardiovascular Services [place] [address] Cardiovascular Laboratory Report INDICATION: The patient is [...] signed informed consent. He was brought to mine laborer in a fasting state. The right neck area was prepped and draped in usual fashion. Micropuncture technique and ultrasound guidance were used for access in the right internal jugular vein. A 6-Polish x 11 cm sheath was placed. A 6-Polish Barboza catheter was used for right catheterization with measurement of pressures and calculation of cardiac output using the estimated Bridget method. Barboza catheter was removed. Modified Tyrone's test was favorable on the right. Access in the right radial artery was obtained using micropuncture technique and ultrasound guidance. A 6-Polish x 11 cm Hydrophilic sheath was advanced. Verapamil was given through the sheath, and heparin was administered intravenously. Bilateral selective coronary angiography was then performed using 6-Polish JL3.5 and JR5 diagnostic catheters. Catheters were [...] Valdez M.D. Date Trans: 12/22/2021 04:31 A/lois [id number] cc: Eloy Bansal M.D. [address] [place] [id number] Normal [facility] CBC AUTO DIFFon 12-18-2021 BASO # 0.1 103/ul Normal 0.0-0.1 [facility] Comment on above: Performed By: #### C BC #### [facility] [address] [place] [address] Dr. Richard Linares Basophils/100 WBC (Bld) 0.8 % Normal 0.2-2.0 [facility] Comment on above: Performed By: #### C BC #### [facility] [address] [place] [address] [address] Richard Linares EO # 0.0 103/ul Normal 0.0-0.7 [facility] Comment on above: Performed By: #### C BC #### [facility] [address] [place] [address] Dr. Richard Linares Eosinophils/100 WBC (Bld) 0.0 % Critically low 0.9-7.0 [facility] Comment on above: Performed By: #### C BC #### [facility] [address] [place] [address] Dr. Richard Linares Erythrocyte distribution width (RBC) [Ratio] 12.9 % Normal 11.0-15.0 [facility] Comment on above: Performed By: #### C BC #### [facility] [address] [place] [address] Dr. Richard Linares Hematocrit (Bld) [Volume fraction] 46.1 % Normal 42.0-54.0 [facility] Comment on above: Performed By: #### C BC #### [facility] [address] [place] [address] Dr. Richard Linares Hemoglobin (Bld) [Mass/Vol] 15.6 g/dL Normal 14.0-18.0 [facility] Comment on above: Performed By: #### C BC #### [facility] [address] [place] [address] Dr. Richard Linares IG # 0.04 10e3/ul Critically high 0.00-0.03 [facility] Comment on above: Performed By: #### C BC #### [facility] [address] [place] [address] Dr. Richard Linares IG % 0.5 % Normal 0.0-0.5 [facility] Comment on above: Performed By: #### C BC #### [facility] [address] [place] [address] Dr. Richard Linares LYMPH # 1.5 103/ul Normal 1.2-3.8 [facility] Comment on above: Performed By: #### C BC #### [facility] [address] [place] [address] Dr. Richard Linares Lymphocytes/100 WBC (Bld) 17.7 % Critically low 20.5-60.0 [facility] Comment on above: Performed By: #### C BC #### [facility] [address] [place] [address] Dr. Richard Linares MANUAL DIFF REQ NO Normal [facility] Comment on above: Performed By: #### C BC #### [facility] [address] [place] [address] Dr. Richard Linares MCH (RBC) [Entitic mass] 31.1 pg Normal 25.9-34.0 [facility] Comment on above: Performed By: #### C BC #### [facility] [address] [place] [address] Dr. Richard Linares MCHC (RBC) [Mass/Vol] 33.8 g/dL Normal 29.9-35.2 [facility] Comment on above: Performed By: #### C BC #### [facility] [address] [place] [address] Dr. Richard Linares MCV (RBC) [Entitic vol] 92.0 fL Normal 80.0-94.0 [facility] Comment on above: Performed By: #### C BC #### [facility] [address] [place] [address] Dr. Richard Linares MONO # 0.7 103/ul Normal 0.3-0.8 [facility] Comment on above: Performed By: #### C BC #### [facility] [address] [place] [address] Dr. Richard Linares Monocytes/100 WBC (Bld) 8.7 % Normal 1.7-12.0 [facility] Comment on above: Performed By: #### C BC #### [facility] [address] [place] [address] Dr. Richard Linares NEUT # 6.2 103/ul Normal 1.4-6.5 [facility] Comment on above: Performed By: #### C BC #### [facility] [address] [place] [address] Dr. Richard Linares Neutrophils/100 WBC (Bld) 72.3 % Normal 43.0-75.0 [facility] Comment on above: Performed By: #### C BC #### [facility] [address] [address] [address] Richard Linares Platelet mean volume (Bld) [Entitic vol] 10.2 fL Normal 9.5-13.5 [facility] Comment on above: Performed By: #### C BC #### [facility] [address] [address] [address] Richard Linares PLT 197 103/ul Normal 150-450 [facility] Comment on above: Performed By: #### C BC #### [facility] [address] [address] [address] Richard Linares RBC 5.01 106/ul Normal 4.70-6.10 [facility] Comment on above: Performed By: #### C BC #### [facility] [address] [place] [address] Dr. Richard Linares WBC 8.5 103/ul Normal 4.0-11.0 [facility] Comment on above: Performed By: #### C BC #### [facility] [address] [address] [address] Richard [facility]inares [facility]04 SARS-CoV-2 (COVID-19) RNA MOLLY+probe Ql (Unsp spec) Not detected Normal NOT DETECTED [facility] Comment on above: Result Comment: This test is not yet approved or cleared by the [place] FDA. When there are no FDA-approved or cleared tests available, and other criteria are met, FDA can make tests available under an emergency access mechanism called an Emergency Use Authorization (EUA). The EUA for this test is supported by the [place] of Health and Human Service's (HHS's) declaration [...] SARS-CoV-2. Performed By: #### B MP #### [facility] [address] [place] [address] Dr. Richard Linares PROF CHEM 8 (BAS METB)on Anion gap [Moles/Vol] 6.2 mmol/L Normal [facility] Comment on above: Performed By: #### B MP #### [facility] [address] [place] [address] Dr. Richard Linares Calcium [Mass/Vol] 8.2 mg/dL Critically low 8.5-10.1 [facility] Comment on above: Performed By: #### B MP #### [facility] [address] [place] [address] Dr. Richard Linares Chloride [Moles/Vol] 102 mmol/L Normal 98-107 [facility] Comment on above: Performed By: #### B MP #### [facility] [address] [place] [address] Dr. Richard Linares CO2 [Moles/Vol] 34.6 mmol/L Critically high 22.0-30.0 [facility] Comment on above: Performed By: #### B MP #### [facility] [address] [place] [address] Dr. Richard Linares Creatinine [Mass/Vol] 0.96 mg/dL Normal 0.66-1.25 [facility] Comment on above: Performed By: #### B MP #### [facility] [address] [place] [address] Dr. Richard Linares EGFR-AF KOSOVAN >60 Normal >=60 [facility] Comment on above: Performed By: #### B MP #### [facility] [address] [place] [address] Dr. Richard Linares EGFR-NON AF KOSOVAN >60 Normal >=60 [facility] Comment on above: Performed By: #### B MP #### [facility] [address] [place] [address] Dr. Richard Linares Glucose [Mass/Vol] 94 mg/dL Normal 74-106 [facility] Comment on above: Performed By: #### B MP #### [facility] [address] [address] [address] Richard Linares Potassium [Moles/Vol] 3.8 mmol/L Normal 3.4-5.0 [facility] Comment on above: Performed By: #### B MP #### [facility] [address] [address] [address] Richard Linares Sodium [Moles/Vol] 139 mmol/L Normal 137-145 [facility] Comment on above: Performed By: #### B MP #### [facility] [address] [address] [address] Richard Linares Urea nitrogen [Mass/Vol] 11.0 mg/dL Normal 7.0-18.0 [facility] Comment on above: Performed By: #### B MP #### [facility] [address] [address] [address] Richard Linares Urea nitrogen/Creatinine [Mass ratio] 11.5 mg/mg Normal [facility] Comment on above: Performed By: #### B MP #### [facility] [address] [address] [address] Richard Linares US carotid doppler BIon 11-05 US carotid doppler [facility] [address] Ultrasound Report Signed Patient: Mike Lopez MR#: [id number] : 1960 Acct:[id number] Age/Sex: 61 / M ADM Date: 12/01/21 Loc: Room: Type: [facility] Attending Dr: Saniya CASTILLO Ordering Provider: [...] Milton Wei M.D.12/02/2021 4:20 PM Dictation Location: [facility]04 Tech: [facility] Transcribed By: DIANA 12/02/211619 Dictated By: Milton Wei MD 12/02/21 161 Signed By: 12/02/21 1620 [facility] ECHOCARDIO M/2D COMPLETEon 0 11-27-2021 ECHOCARDIO M/2D COMPLETE Patient: MIKE LOPEZ Exam Date: 11/27/2021 : 1960 Gender:M Ordering : SANIYA LANDON Admission #: [id number] Family : Order #: [id number] CLICK HERE TO VIEW EXAM ECHOCARDIOGRAM REPORT [...] Area(A4C): 15.10 cm2 Left Atrium Systolic Volume(A2C): 80275 mm3 Left Atrium Systolic Volume(A4C): 69542 mm3 Mitral Valve MV E to A Ratio: 0.80 Deceleration [place]: 4530 mm/s2 Mitral Valve A-Wave Peak Velocity: [...] Valdez M.D. on 11/30/2021 at 10:35 Normal [facility] NM STRESS/REST MULTIon 10-26 NM STRESS/REST MULTI Patient: MIKE LOPEZ Exam Date: 10/26/2021 : 1960 Gender:M Ordering : DR ELOY BANSAL . Admission #: [id number] Family : Order #: [id number] CLICK HERE TO VIEW EXAM RADIOLOGY REPORT [...] DEFECT: LOCATION: Basal inferior. Mid-inferior. Apical inferior. [place]. SIZE: Medium (3-4 segments). SEVERITY: Moderate. TYPE: [...] MD on 11/09/2021 at 11:40 Normal [facility] CBC AUTO DIFFon 10-12-2021 BASO # 0.0 103/ul Normal 0.0-0.1 [facility] Comment on above: Performed By: #### B MP #### [facility] [address] [place] [address] Dr. Richard Linares Basophils/100 WBC (Bld) 0.5 % Normal 0.2-2.0 [facility] Comment on above: Performed By: #### B MP #### [facility] [address] [place] [address] Dr. Richard Linares EO # 0.0 103/ul Normal 0.0-0.7 [facility] Comment on above: Performed By: #### B MP #### [facility] [address] [place] [address] Dr. Richard Linares Eosinophils/100 WBC (Bld) 0.0 % Critically low 0.9-7.0 [facility] Comment on above: Performed By: #### B MP #### [facility] [address] [place] [address] Dr. Richard Linares Erythrocyte distribution width (RBC) [Ratio] 12.8 % Normal 11.0-15.0 [facility] Comment on above: Performed By: #### B MP #### [facility] [address] [address] [address] Richard Linares Hematocrit (Bld) [Volume fraction] 41.8 % Critically low 42.0-54.0 [facility] Comment on above: Performed By: #### B MP #### [facility] [address] [address] [address] Richard Linares Hemoglobin (Bld) [Mass/Vol] 14.4 g/dL Normal 14.0-18.0 [facility] Comment on above: Performed By: #### B MP #### [facility] [address] [address] [address] Richard Linares IG # 0.01 10e3/ul Normal 0.00-0.03 [facility] Comment on above: Performed By: #### B MP #### [facility] [address] [place] [address] Dr. Richard Linares IG % 0.2 % Normal 0.0-0.5 [facility] Comment on above: Performed By: #### B MP #### [facility] [address] [place] [address] Dr. Richard Linares LYMPH # 0.9 103/ul Critically low 1.2-3.8 [facility] Comment on above: Performed By: #### B MP #### [facility] [address] [place] [address] Dr. Richard Linares Lymphocytes/100 WBC (Bld) 15.0 % Critically low 20.5-60.0 [facility] Comment on above: Performed By: #### B MP #### [facility] [address] [place] [address] Dr. Richard Linares MANUAL DIFF REQ NO Normal [facility] Comment on above: Performed By: #### B MP #### [facility] [address] [place] [address] Dr. Richard Linares MCH (RBC) [Entitic mass] 31.4 pg Normal 25.9-34.0 [facility] Comment on above: Performed By: #### B MP #### [facility] [address] [address] [address] Richard Linares MCHC (RBC) [Mass/Vol] 34.4 g/dL Normal 29.9-35.2 [facility] Comment on above: Performed By: #### B MP #### [facility] [address] [place] [address] Dr. Richard Linares MCV (RBC) [Entitic vol] 91.3 fL Normal 80.0-94.0 [facility] Comment on above: Performed By: #### B MP #### [facility] [address] [place] [address] Dr. Richard Linares MONO # 0.4 103/ul Normal 0.3-0.8 [facility] Comment on above: Performed By: #### B MP #### [facility] [address] [place] [address] Dr. Richard Linares Monocytes/100 WBC (Bld) 6.4 % Normal 1.7-12.0 [facility] Comment on above: Performed By: #### B MP #### [facility] [address] [place] [address] Dr. Richard Linares NEUT # 4.9 103/ul Normal 1.4-6.5 [facility] Comment on above: Performed By: #### B MP #### [facility] [address] [place] [address] Dr. Richard Linares Neutrophils/100 WBC (Bld) 77.9 % Critically high 43.0-75.0 [facility] Comment on above: Performed By: #### B MP #### [facility] [address] [place] [address] Dr. Richard Linares Platelet mean volume (Bld) [Entitic vol] 9.9 fL Normal 9.5-13.5 [facility] Comment on above: Performed By: #### B MP #### [facility] [address] [place] [address] Dr. Richard Linares PLT 208 103/ul Normal 150-450 [facility] Comment on above: Performed By: #### B MP #### [facility] [address] [place] [address] Dr. Richard Linares RBC 4.58 106/ul Critically low 4.70-6.10 [facility] Comment on above: Performed By: #### B MP #### [facility] [address] [place] [address] Dr. Richard Linares WBC 6.3 103/ul Normal 4.0-11.0 [facility] Comment on above: Performed By: #### B MP #### [facility] [address] [place] [address] Dr. Richard Linares Covid-19 PCR ([facility])on SARS-CoV-2 (COVID-19) RNA MOLLY+probe Ql (Unsp spec) Not detected Normal NOT DETECTED [facility] Comment on above: Result Comment: This test is not yet approved or cleared by the [place] FDA. When there are no FDA-approved or cleared tests available, and other criteria are met, FDA can make tests available under an emergency access mechanism called an Emergency Use Authorization (EUA). The EUA for this test is supported by the [place] of Health and Human Service's (HHS's) declaration [...] SARS-CoV-2. Performed By: #### C VDTBH #### [facility] [address] [place] [address] Dr. Richard Linares PROF 14(COMP METB)on 022 Albumin [Mass/Vol] 3.6 g/dL Normal 3.5-5.0 [facility] Comment on above: Performed By: #### C MP, HSTROPN #### [facility] [address] [place] [address] Dr. Richard Linares Albumin/Globulin [Mass ratio] 1.3 {ratio} Normal [facility] Comment on above: Performed By: #### C KORI, HSTROPN #### [facility] [address] [address] [address] Richard Linares ALP [Catalytic activity/Vol] 65 U/L Normal 38-126 [facility] Comment on above: Performed By: #### C MP, HSTROPN #### [facility] [address] [address] [address] Richard Linares ALT [Catalytic activity/Vol] 12 U/L Critically low 21-72 [facility] Comment on above: Performed By: #### C KORI, HSTROPN #### [facility] [address] [place] [address] Dr. Richard Linares Anion gap [Moles/Vol] 10.1 mmol/L Normal [facility] Comment on above: Performed By: #### C KORI, HSTROPN #### [facility] [address] [place] [address] Dr. Richard Linares AST [Catalytic activity/Vol] 8 U/L Critically low 17-59 [facility] Comment on above: Performed By: #### C KORI, HSTROPN #### [facility] [address] [place] [address] Dr. Richard Linares Bilirubin [Mass/Vol] 0.6 mg/dL Normal 0.2-1.3 [facility] Comment on above: Performed By: #### C KORI, HSTROPN #### [facility] [address] [place] [address] Dr. Richard Linares Calcium [Mass/Vol] 8.3 mg/dL Critically low 8.4-10.2 [facility] Comment on above: Performed By: #### C MP, HSTROPN #### [facility] [address] [place] [address] Dr. Richard Linares Chloride [Moles/Vol] 106 mmol/L Normal 98-107 [facility] Comment on above: Performed By: #### C MP, HSTROPN #### [facility] [address] [address] [address] Richard Linares CO2 [Moles/Vol] 29.4 mmol/L Normal 22.0-30.0 [facility] Comment on above: Performed By: #### C MP, HSTROPN #### [facility] [address] [address] [address] Richard Linares Creatinine [Mass/Vol] 0.73 mg/dL Normal 0.66-1.25 [facility] Comment on above: Performed By: #### C MP, HSTROPN #### [facility] [address] [address] [address] Richard Linares EGFR-AF KOSOVAN >60 Normal >=60 [facility] Comment on above: Performed By: #### C MP, HSTROPN #### [facility] [address] [address] [address] Richard Linares EGFR-NON AF KOSOVAN >60 Normal >=60 [facility] Comment on above: Performed By: #### C MP, HSTROPN #### [facility] [address] [address] [address] Richard Linares Globulin (S) [Mass/Vol] 2.8 g/dL Normal [facility] Comment on above: Performed By: #### C MP, HSTROPN #### [facility] [address] [address] [address] Richard Linares Glucose [Mass/Vol] 133 mg/dL Critically high 74-106 T [facility] Comment on above: Performed By: #### C MP, HSTROPN #### [facility] [address] [address] [address] Richard Linares Potassium [Moles/Vol] 3.5 mmol/L Normal 3.4-5.0 [facility] Comment on above: Performed By: #### C MP, HSTROPN #### [facility] [address] [address] [address] Richard Linares Protein [Mass/Vol] 6.4 g/dL Normal 6.1-8.2 [facility] Comment on above: Performed By: #### C MP, HSTROPN #### [facility] [address] [address] [address] Richard Linares Sodium [Moles/Vol] 142 mmol/L Normal 137-145 [facility] Comment on above: Performed By: #### C MP, HSTROPN #### [facility] [address] [place] [address] Dr. Richard Linares Urea nitrogen [Mass/Vol] 9.0 mg/dL Normal 9.0-20.0 [facility] Comment on above: Performed By: #### C MP, HSTROPN #### [facility] [address] [place] [address] Dr. Richard Linares Urea nitrogen/Creatinine [Mass ratio] 12.3 mg/mg Normal [facility] Comment on above: Performed By: #### C MP, HSTROPN #### [facility] [address] [place] [address] Dr. Richard Linares TROPONIN, HIGH SENSITIVITYon 10-12-2021 HSTROP 6.9 pg/mL Normal 4.0-42.2 [facility] Comment on above: Result Comment: CUT- OFF POINTS HAVE BEEN ESTABLISHED BASED ON THE FOURTH UNIVERSAL DEFINITIONS OF MYOCARDIAL INFARCTION. THE UPPER REFERENCE LIMIT (URL) OF TROPONIN, DEFINED THE 99TH PERCENTILE OF cTnI DISTRIBUTION IN A REFERENCE POPULATION, HAS BEEN CONFIRMED THE DECISION THRESHOLD FOR LA DIAGNOSIS. Performed By: #### H STROPN #### [facility] [address] [place] [address] Dr. Richard Linares HSTROP 6.0 pg/mL Normal 4.0-42.2 [facility] Comment on above: Result Comment: CUT- OFF POINTS HAVE BEEN ESTABLISHED BASED ON THE FOURTH UNIVERSAL DEFINITIONS OF MYOCARDIAL INFARCTION. THE UPPER REFERENCE LIMIT (URL) OF TROPONIN, DEFINED THE 99TH PERCENTILE OF cTnI DISTRIBUTION IN A REFERENCE POPULATION, HAS BEEN CONFIRMED THE DECISION THRESHOLD FOR LA DIAGNOSIS. Performed By: #### C MP, HSTROPN #### [facility] [address] [place] [address] Dr. Richard Linares XR CHEST 1 Von [...] by: ARMANDO ZULETA Date: 2021-10-12 19:22 Normal [facility] Vital Signs Date Time Vital Sign Value Performing Clinician Facility 03-11-2025 14:26-0400 Body height 180.3 cm Carri Itzkowitz DO Work Phone: [facility] 03-11-2025 14:26-0400 Body mass index (BMI) [Ratio] 22.18 kg/m2 Carri Itzkowitz DO Work Phone: [facility] 03-11-2025 14:26-0400 Body weight 72.12 kg Carri Itzkowitz DO Work Phone: [facility] 03-04-2025 15:44-0400 Body height 180.3 cm Carri Itzkowitz DO Work Phone: [facility] 03-04-2025 15:44-0400 Body mass index (BMI) [Ratio] 22.18 kg/m2 Carri Itzkowitz DO Work Phone: [facility] 03-04-2025 15:44-0400 Body weight 72.12 kg Carri Itzkowitz DO Work Phone: [facility] 03-04-2025 15:44-0400 Diastolic blood pressure 64 mm[Hg] Carri Itzkowitz DO Work Phone: [facility] 03-04-2025 15:44-0400 Systolic blood pressure 88 mm[Hg] Carri Itzkowitz DO Work Phone: [facility] 05-14-2024 14:14-0400 Blood Pressure Location Benji MCCULLOUGH [facility] [place] 05-14-2024 14:14-0400 Diastolic blood pressure 66 mm[Hg] Benji MARIAL [facility] [place] 05-14-2024 14:14-0400 Heart rate 72 /min Benji NILL [facility] [place] 05-14-2024 14:14-0400 Respiratory rate 16 /min Benji NILL [facility] [place] 05-14-2024 14:14-0400 Systolic blood pressure 102 mm[Hg] Benji NILL [facility] 05-13-2022 10:53-0400 Body height 182.88 cm Eloy Bansal Work Phone: PK-Mcenkrsbwp-Ymgdg a 101 Work Phone: 05-13-2022 10:53-0400 Body mass index (BMI) [Ratio] 22.92 kg/m2 Eloy Bansal Work Phone: BG-Yphjoggdnv-Lxscy a 101 Work Phone: 05-13-2022 10:53-0400 Body surface area Derived from formula 1.98 m2 Eloy Bansal Work Phone: VI-Zjqvztksya-Vnxfn a 101 Work Phone: 05-13-2022 10:53-0400 Body temperature 97.1 [degF] Eloy Bansal Work Phone: LD-Pxcbzgfxqw-Bquor a 101 Work Phone: 05-13-2022 10:53-0400 Body weight 76.66 kg Eloy Bansal Work Phone: AJ-Emodvhvlot-Syifs a 101 Work Phone: 05-13-2022 10:53-0400 Diastolic blood pressure 69 mm[Hg] Eloy Bansal Work Phone: FO-Jqffvkjffp-Rffdv a 361 Work Phone: 05-13-2022 10:53-0400 Heart rate 109 /min Eloy Calero Nimisha Work Phone: NK-Iqvbujugah-Pctrk a 582 Work Phone: 05-13-2022 10:53-0400 Respiratory rate 16 /min Eloy Calero Nimisha Work Phone: GV-Alqctvebxl-Yktcw a 514 Work Phone: 05-13-2022 10:53-0400 SaO2% (BldA) [Mass fraction] 94 % Eloy Calero Nimisha Work Phone: GF-Fgkgdtsary-Hofgt a 730 Work Phone: 05-13-2022 10:53-0400 Systolic blood pressure 107 mm[Hg] Eloy Calero Nimisha Work Phone: OO-Tonpadvuus-Kyzjl a 541 Work Phone: Encounters Encounter Date Encounter Type Care Provider Facility Start: 03-11-2025 End: 03-11-2025 ambulatory CARRI H ITZKOWITZ Not Available Start: 03-11-2025 End: 03-11-2025 Office outpatient visit 15 minutes Carir H Itzkowitz DO Work Phone: [facility] Comment on above: Thrombosed external hemorrhoid (Primary Dx) Start: 03-04-2025 End: 03-04-2025 ambulatory CARRI H ITZKOWITZ Not Available Start: 03-04-2025 End: 03-04-2025 Office outpatient new 45 minutes Carri H Itzkowitz DO Work Phone: [facility] Comment on above: Thrombosed external hemorrhoid Start: 02-26-2025 End: 02-26-2025 ambulatory [employer] Jailyn L Deyvi Facility:[facility] Start: 01-30-2025 End: 01-30-2025 ambulatory [employer] Jailyn L Deyvi Facility:[facility] Start: 11-30-2024 End: 11-30-2024 [facility] Start: 08-22-2024 End: 08-22-2024 ambulatory [facility] Start: 08-10-2024 End: 08-10-2024 ambulatory [facility] Start: 07-03-2024 End: 07-03-2024 Phys/qhp telephone evaluation 11-20 min Celso Ibarra DO Work Phone: [facility] Comment on above: Centrilobular emphys veronica (Multi) (Primary Dx); Lung nodule Start: 07-03-2024 [facility] Start: 06-26-2024 End: 06-26-2024 ambulatory [facility] Start: 06-25-2024 End: 06-25-2024 ambulatory [facility] Start: 05-23-2024 End: 05-23-[address] [facility] Start: 05-23-2024 End: 05-23-2024 Encounter for other preprocedural examination [facility] Start: 05-17-2024 End: 05-17-2024 ambulatory [employer] Jailyn L Deyvi Facility:[facility] Start: 05-14-2024 End: 05-14-2024 ambulatory [employer] Jailyn L Deyvi Facility:[facility] Start: 05-14-2024 End: 05-14-2024 Patient encounter procedure Benji MCCULLOUGH [facility] Start: 05-04-2024 ambulatory [employer] Jailyn Deyvi Facilit y:[facility] Start: 05-04-2024 ambulatory [employer] Jailyn Deyvi Facilit y:[facility] Start: 04-19-2024 End: 04-19-2024 ambulatory [employer] Jailyn L Deyvi Facility:[facility] Start: 07-12-2023 End: 07-12-2023 Phys/qhp telephone evaluation 11-20 min Celso Ibarra DO Work Phone: [facility] Comment on above: Cigarette nicotine d ependence with nicotine-induced disorder (Primary Dx); Chronic respiratory failure with hypoxia, on home O2 therapy (CMS/HCC); Centrilobular emphysema (CMS/HCC); Lung nodule Start: 07-12-2023 End: 07-12-2023 ambulatory CELSO IBARRA [facility] [facility] Start: 04-14-2023 Patient encounter procedure Eloy Bansal Work Phone: [facility] Work Phone: Start: 04-14-2023 Phys/qhp telephone evaluation 11-20 min Eloy Bansal Work Phone: [facility]CT Surgery-[facility] 3[address] Work Phone: Start: 04-14-[address] Eloy Bansal F acility:[facility] Start: 09-22-2022 End: 09-23-[address] ELOY BANSAL Facility:H1 Start: 06-28-2022 End: 06-28-2022 ambulatory MD Eduardo Mas Facility:[id number] Start: 06-09-2022 End: 06-10-[address] ELOY BANSAL Facility:H1 Start: 05-21-2022 End: 05-22-[address] ELOY BANSAL Facility:H1 Start: 05-13-[address] [facility] Facility[id number] Start: 05-13-2022 Office outpatient ne w 45 minutes Eloy Bansal Work Phone: [facility] Work Phone: Start: 05-13-2022 Patient encounter procedure Eloy Bansal Work Phone: [facility] Work Phone: Start: 04-13-2022 End: 04-14-[address] ELOY BANSAL Facility:H1 Start: 04-10-2022 End: 04-11-[address] ELOY BANSAL Facility:H1 Start: 03-24-2022 End: 03-25-2022 ambulatory SANIYA RICCIS Facility:H1 Start: 02-19-2022 End: 02-20-2022 ambulatory SANIYA LANDON Facility:H1 Start: 12-21-2021 End: 12-22-2021 ambulatory SANIYA LANDON Facility:[facility] Start: 12-18-2021 End: 12-19-2021 ambulatory SANIYA LANDON Facility:H1 Start: 11-27-2021 End: 11-28-2021 ambulatory SANIYA RICCIS Facility:H1 Start: 11-09-2021 End: 11-10-[address] [...] above: R knee; Repair of meniscus Benji Antonio CELAYA Plan of Treatment Date Care Activity Detail Author Start: 03-11-2025 End: 03-11-2025 Patient encounter procedure 03/11/2025 2:15 PM EDT Office Visit [facility] [address] [facility] [address] [place] [address] Carri Mckeon DO [address] [facility] [address] [place] [address] [facility] Start: 07-03-2024 End: 07-03-2024 Telemedicine consultation with patient 07/03/2024 12:00 PM EDT Telemedicine [facility] [address] [place] [address] [place] [address] [place] [address] [place] [address] [facility] Start: 05-06-2024 COVID-19 Vaccine ( season) COVID-19 Vaccine ( season) [facility] Start: 05-06-2024 Influenza vaccination Influenza Vaccine (#1) [facility] Start: 05-06-2023 Influenza vaccination Influenza Vaccine (#1) [facility] Start: 2020 RSV High Risk: (Elderly (60+) or Population) (1 - Risk 60-74 years 1-dose series) RSV High Risk: (Elderly (60+) or Population) (1 - Risk 60-74 years 1-dose series) [facility] Start: 2010 Zoster Vaccines (1 of 2) Zoster Vaccines (1 of 2) [facility] Start: 1982 DTaP/Tdap/Td Vaccines (1 - Tdap) DTaP/Tdap/Td Vaccines (1 - Tdap) [facility] Start: 11-08-1979 Hepatitis A Vaccines (1 of 2 - Risk 2-dose series) Hepatitis A Vaccines (1 of 2 - Risk 2-dose series) [facility] Start: 1978 Diabetes mellitus screening Diabetes Screening [facility] Start: 1978 Hepatitis C screening Hepatitis C Screening [facility] Start: 1966 Pneumococcal Vaccine: Pediatrics (0 to 5 Years) and At-Risk Patients (6 to 64 Years) (1 - PCV) Pneumococcal Vaccine: Pediatrics (0 to 5 Years) and At-Risk Patients (6 to 64 Years) (1 - PCV) [facility] Start: 1966 Pneumococcal Vaccine: Pediatrics (0 to 5 Years) and At-Risk Patients (6 to 64 Years) (1 of 2 - PCV) Pneumococcal Vaccine: Pediatrics (0 to 5 Years) and At-Risk Patients (6 to 64 Years) (1 of 2 - PCV) [facility] Start: 1961 MMR Vaccines (1 of 1 - Standard series) MMR Vaccines (1 of 1 - Standard series) [facility] Start: 05-10-1961 COVID-19 Vaccine (#1) COVID-19 Vaccine (#1) [facility] Start: 1960 Creatinine measurement Creatinine Level [facility] Start: 1960 Echocardiography Echocardiogram [facility] Start: 1960 HIV screening HIV Screening [facility] Start: 1960 Lipid panel Lipid Panel [facility] Start: 1960 Potassium measurement Potassium Level [facility] Start: 1960 Screening for malignant neoplasm of colon [facility] Start: 1960 Thyroid stimulating hormone measurement TSH Level [facility] Start: 1960 Yearly Adult Physical Yearly Adult Physical [facility] Payers Date Payer Category Payer Private Health Insurance [facility] MEDICA[facility] [id number] 2016 Medicaid (Managed Care) [facility] [id number] 2016 Unknown 2016 Unknown [id number] 1960 Unknown [id number] 2.16.840.1.619020.3.579.2. 647 1960 Unknown [id number] 2.16.840.1.767107.3.579.2. 1068 1960 Unknown [id number] 2.16.840.1.009916.3.579.2. 1069 1960 Unknown [id number] 2.16.840.1.229446.3.579.2. 593 1960 Unknown [id number] 2.16.840.1.607422.3.579.2. 593 1960 Unknown [id number] 2.16.840.1.609721.3.579.2. 593 1960 Unknown [id number] 2.16.840.1.224591.3.579.2. 593 1960 Unknown [id number] 2.16.840.1.635229.3.579.2. 593 1960 Unknown [id number] 2.16.840.1.098399.3.579.2. 593 1960 Unknown [id number] 2.16.840.1.907342.3.579.2. 593 1960 Unknown [id number] 2.16.840.1.554341.3.579.2. 593 1960 Unknown [id number] 2.16.840.1.901701.3.579.2. 593 1960 Unknown [id number] 2.16.840.1.796736.3.579.2. 593 1960 Unknown [id number] 2.16.840.1.412296.3.579.2. 593 1960 Unknown [id number] 2.16.840.1.176029.3.579.2. 593 1960 Unknown [id number] 2.16.840.1.420980.3.579.2. 593 1960 Unknown [id number] 2.16.840.1.705485.3.579.2. 593 1960 Unknown [id number] 2.16.840.1.403641.3.579.2. 356 1960 Unknown [id number] 2.16.840.1.535571.3.579.2. 1245 1960 Unknown [id number] 2.16.840.1.110301.3.579.2. 1245 1960 Unknown [id number] 2.16.840.1.100575.3.579.2. 727 1960 Unknown [id number] 2.16.840.1.696346.3.579.2. 727 1960 Unknown [id number] 2.16.840.1.357725.3.579.2. 727 1960 Unknown [id number] 2.16.840.1.977703.3.579.2. 727 1960 Unknown [id number] 2.16.840.1.290923.3.579.2. 727 1960 Unknown [id number] 2.16.840.1.574885.3.579.2. 1259 1960 Unknown [id number] 2.16.840.1.315144.3.579.2. 1259 1959 Self-pay [id number] 1959 Unknown [id number] Social History Date Type Detail Facility Start: 07-07-2023 End: 03-11-2025 Current smoker Current smoker [id number] Work Phone: Comment on above: 2 ppd X 44 yrs, curr ently 4 cig day(2021); Start: 07-07-2023 End: 03-04-2025 Tobacco smoking status NHIS Smokes tobacco daily [facility] Work Phone: History of tobacco use Cigarette Smoker U [facility] Work Phone: Start: 07-07-2023 End: 03-11-2025 Tobacco use panel [facility] Start: 1960 Sex Assigned At Not on file [facility] Work Phone: Start: 07-02-2023 End: 07-12-2023 Exposure to SARS-CoV-2 (event) Not sure [facility] Start: 05-14-2024 Tobacco smoking status Light t obacco smoker (finding) [facility] Tobacco smoking status Never [facility] Start: 06-23-2024 End: 07-03-2024 Exposure to SARS-CoV-2 (event) Unable to assess [facility] Work Phone: Start: 03-04-2025 Tobacco use and exposure Smokeless tobacco non-user [facility] Start: 03-04-2025 End: 03-11-2025 Alcoholic beverage intake Ex-drinker (finding) [facility] Functional Status Date Assessment Result Facility 05-14-2024 Functional Status N/A [facility] Clinical Notes 03-05-2021 to 03-11-2025 Carri Mckeon, DO - 03/11/2025 2:15 PM Hadley Mckeon, DO - 03/04/2025 3:30 PM Carl Ibarra, DO - 07/03/2024 12:45 PM Carl Ibarra, DO - 07/12/2023 1:30 PM EST Note Date & Type Note Facility 03-11-2025 History of Present illness Narrative Images from the original note were not included. Mike Lopez is a 64 y.o. male presents for follow up Exc. of thrombosed hemorrhoid in office HPI: GINA Mina presents for follow up from I&D of thrombosed hemorrhoid done in the office last week. OBJECTIVE: Physical Exam Genitourinary: Comments: Thrombectomy incision is healing with resolution of the thrombosed hemorrhoid ASSESSMENT AND PLAN: Assessment/Plan Diagnoses and all orders for this visit: Thrombosed external hemorrhoid He is doing well, I told him that the area will continue to heal but he may be left with a skin tag. If it is an issue in several months he can return and we can discuss resection of th residual skin tag. I'll discharge him and see him PRN. documented in this encounter [facility] 03-04-2025 History of Present illness Narrative Images from the original note were not included. Mike Lopez 1960 Mike Lopez is a 64 y.o. male presents with chief complaint of Possible thrombosed hemorrhoid HPI: HPI Mike states he has rectal pain that started about 1 1/2 weeks ago. It got big and painful, but has not bleed yet. He has no issues going to the bathroom but it is painful to wipe or sit. The pain is a 7/10. He never had a colonoscopy SUBJECTIVE: MEDICATIONS: ALLERGIES No current outpatient medications No Known Allergies PAST MEDICAL HISTORY: SOCIAL HISTORY SURGICAL HISTORY: Past Medical History: Diagnosis Date Acid reflux Centrilobular emphysema (HCC) Cholelithiasis Chronic obstructive lung disease (HCC) Chronic respiratory failure with hypoxia (HCC) Chronic systolic (congestive) heart failure (HCC) Hypertension Hypothyroidism Lung nodule Rhinitis Right inguinal hernia Past Surgical History: Procedure Laterality Date CT GUIDED PERCUTANEOUS BIOPSY LUNG 06/28/2022 CT GUIDED PERCUTANEOUS BIOPSY LUNG 06/28/2022 FAMILY HISTORY No family history on file. REVIEW OF SYMPTOMS: Review of Systems Constitutional: Negative for activity change. HENT: Negative for hearing loss and voice change. Respiratory: Positive for shortness of breath. Cardiovascular: Negative for chest pain. Gastrointestinal: Positive for rectal pain. Negative for abdominal distention, diarrhea, nausea and vomiting. Musculoskeletal: Right knee pain Neurological: Positive for dizziness. Negative for seizures and headaches. Psychiatric/Behavioral: Negative. All other systems reviewed and are negative. OBJECTIVE: There were no vitals taken for this visit. Physical Exam Vitals reviewed. HENT: Head: Normocephalic. Eyes: Pupils: Pupils are equal, round, and reactive to light. Cardiovascular: Rate and Rhythm: Normal rate and regular rhythm. Pulmonary: Effort: Pulmonary effort is normal. Abdominal: General: Bowel sounds are normal. Palpations: Abdomen is soft. Genitourinary: Comments: Thrombosed external hemorrhoid at 3:00 position Musculoskeletal: General: Normal range of motion. Skin: General: Skin is warm. Neurological: General: No focal deficit present. Mental Status: He is alert. ASSESSMENT AND PLAN: Assessment/Plan Diagnoses and all orders for this visit: Thrombosed external hemorrhoid - Ambulatory referral to General Surgery Consent was obtained from the patient. In the left lateral position the external anal canal was prepped with Betadine. The thrombosed hemorrhoid was injected with Xylocaine. A scalpal was used to make an incision in the hemorrhoid and the thrombosed clot was excised. Direct pressure was applied for hemastasis. Wound care instructions were reviewed. The patient tolerated the procedure well. 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 [facility] 12-18-2024 Note Subjective Patient ID: Mike Lopez is [...] past 36 hour(s)). No follow-ups on file. [facility] 08-10-2024 Note with call back number given. [facility] 08-10-2024 Note Patient: Mike adam Procedure Summary Date: 08/10/24 Room / Location: [facility] OPERATING ROOM 01 / [facility] Operating Room Anesthesia Start: 1351 Anesthesia [...] no known notable events for this encounter. [facility] 08-10-2024 Note Airway Date/Time: 08/10/2024 1:59 PM Urgency: elective Airway not difficult General Information and Staff Patient location during procedure: OR Anesthesiologist: Freeman Ramirez MD Resident/BILLING ASSOCIATE/CAA: JONN Mclaughlin Performed: resident/BILLING ASSOCIATE/CAA Indications and Patient Condition Indications for airway [...] 1 Number of other approaches attempted: 0 [facility] 08-10-2024 Note Patient: Mike adam Procedure Information Date/Time: 08/10/24 1430 Procedure: LAPAROSCOPIC CHOLECYSTECTOMY WITH INTRAOPERATIVE CHOLANGIOGRAM Location: [facility] OPERATING ROOM 01 / [facility] Operating Room Surgeons: Denice Moreno MD Relevant Problems Cardio (+) Chronic systolic congestive heart failure (CMS/HCC) (+) Coronary artery disease involving y[place]utat coronary artery of y[place]utat heart without angina pectoris Endo (+) Hypothyroidism Pulmonary (+) Centrilobular emphysema (CMS/HCC) (+) Chronic obstructive lung disease (CMS/HCC) Expand All Collapse All [place] Cardiology - [facility] Subjective Mike Lopez is a 63 [...] heart failure (CMS/HCC) Coronary artery disease involving yakutat coronary artery of yakutat heart without angina pectoris Impotence Chronic obstructive [...] status: Every Day Packs/day: .25 Types: Cigarettes GINA Mckeon is seen in follow-up. He is a [...] Plan discussed with CAA. Additional Equipment Requests [facility] 08-10-2024 Note Relevant Hx: CAD, CH F Course: stable, controlled Daily Update: none Today's Plan: Laparoscopic cholecystectomy, possible cholangiogram Orders from past 72 hours: Full Code; Standing ceFAZolin in dextrose (iso-os) (Ancef) IVPB 2 g Full Code [facility] 07-03-2024 History of Present illness Narrative [...] OSH). Followed by Dr. Nuñez, Pulmonology, at [facility]. Patient denies any significant change in his [...] discussion of perhaps a cardiomyopathy. No h/o LA. Patient had a prior drinking history many [...] Results: Pathology: N/A Imagin06/12/24 CT Chest from [facility] was personally reviewed Assessment/Plan Diagnoses and all orders for this visit: Centrilobular emphysema (Multi) Lung nodule Mike Lopez is a 63 y.o. male with a significant history of COPD, moderate to severe, who presents with a lateral left upper lobe 1.[address] guided bx was non-diagnostic in June 2022. On recent CT from [facility] lesions are stable. Plan for repeat CT chest in [address] Nuñez will order this and have it done at [facility]. Celso Ibarra DO Thoracic & Esophageal Surgery documented in this encounter [facility] Work Phone: 06-26-2024 Note Subjective [...] coronary artery disease. He was referred to [facility] for symptomatic cholelithiasis. Review of Systems Constitutional: [...] past 36 hour(s)). No follow-ups on file. [facility] 05-23-2024 Note Cardiovascular Medic [facility] SUBJECTIVE Chief Complaint Patient presents with [...] heart failure (CMS/HCC) Coronary artery disease involving yakutat coronary artery of yakutat heart without angina pectoris Impotence Chronic obstructive lung disease (CMS/HCC) Hypothyroidism Induration penis plastica Right inguinal hernia Rhinitis, allergic Lung nodule Cigarette nicotine dependence with nicotine-induced disorder Chronic respiratory failure with hypoxia, on home O2 therapy (CMS/HCC) Cholelithiasis without cholecystitis Centrilobular emphysema (CMS/HCC) Past Medical History: Diagnosis Date CAD (coronary artery disease) COPD (chronic obstructive pulmonary disease) (CMS/[facility]) Hypothyroidism Near syncope Systolic heart failure, chronic [...] Final Atrial Rate 12/21/2021 93 BPM Final ND Interval 12/21/2021 140 ms Final QRS DURATION 12/21/2021 90 ms Final QT Interval 12/21/2021 330 ms Final QTC CALCULATION(BAZETT) 12/21/2021 410 ms Final P [place] 12/21/2021 72 degrees Final R-[place] 12/21/2021 76 degrees Final T Wave [place] 12/21/2021 57 degrees Final Diagnosis 12/21/2021 Final Value:Normal sinus rhythm Normal ECG No previous ECGs available Confirmed by Randolph Chandra ([id number]) on 12/22/2021 8:48:12 AM Blood testing 04/21/2023: Potassium 4.4, BUN 11, creatinine 0.85, LFTs normal, cholesterol 112, HDL 45, triglycerides 44, LDL 58, hemoglobin 14.8, platelets 213. labs- 02/19/22 BUN 11, CR 1.00- nor (more content not included)... [facility] 05-23-2024 Note Pt here for follow u p on chronic systolic heart failure, CAD, COPD. Denies chest pain, SOB palpitations or edema Review of Systems Neurological: Positive for dizziness. [facility] 05-14-2024 Note General Surgery Offi ce/Clinic Note Chief Complaint consultation for cholelithiasis HPI Staff 63 year old male presents on consultation from Jailyn Douglas for cholelithiasis. Patient presented to [facility] ED 03/11 with complaint of worsening RUQ [...] abd pain and cholelithiasis; patient seen at [facility] ED 2 months ago for several day [...] no NSAID use; smokes daily. patient sees Workers Compensation Analyst yearly, [facility] at [facility], reported for heart failure; and Open Source Developer, Dr Nuñez; he reports recent appointment; smokes [...] Hyperlipidemia Hypertension Overweight (more content not included)... [facility] Comment on above: Result Comment: Elec [...] discussion of perhaps a cardiomyopathy. No h/o LA. Patient had a prior drinking history many [...] chest in [address] uNñez will order this and have it done at [facility]. Celso Ibarra DO Thoracic & Esophageal Surgery documented in this encounter [facility] Work Phone: 06-05-2022 History of [...] discussion of perhaps a cardiomyopathy. No h/o LA. Patient had a prior drinking history many years ago.Current smoker, several cigarettes per day down from 2 packs/day. [facility] [address] Work Phone: 03-05-2021 History [...] discussion of perhaps a cardiomyopathy. No h/o LA. Patient had a prior drinking history many years ago. Current smoker, several cigarettes per day down from 2 packs/day. [facility] Work Phone: Evaluation + Plan note Future Appointments Appointment Date:05/17/2024 02:40:00 PM Scheduled Provider:Jailyn Blanc Location:[facility] Appointment Type: [facility] General Surgery [place] Evaluation note Diagnosis Cigarette nicotine dependence with nicotine-induced disorder- Primary Chronic respiratory failure with hypoxia, on home O2 therapy (CMS/HCC) Centrilobular emphysema (CMS/HCC) Lung nodule Other diseases of lung, not elsewhere classified documented in this encounter [facility] Work Phone: Evaluation note* Diagnosis Centrilobular emphysema (Multi)- Primary Lung nodule Other diseases of lung, not elsewhere classified documented in this encounter [facility] Work Phone: Evaluation note* Diagnosis Thrombosed external hemorrhoid External thrombosed hemorrhoids documented in this encounter [facility] HealthcareEvaluation note* Diagnosis Thrombosed external hemorrhoid- Primary External thrombosed hemorrhoids documented in this encounter [facility] HealthcareHospital course Narrative No data available for this section [facility] [place] [facility] Discharge instructions No data available for this section [facility] Progress note No data available for this section [facility] [place] Summary Purpose Family History No Family History [...] section and content) DATE CREATED AUTHOR 12/16/2021 [facility] DATE CREATED AUTHOR AUTHOR'S ORGANIZ ATION 12/28/2021 [facility] DATE CREATED AUTHOR AUTHOR'S ORGANIZ ATION 06/06/2022 [facility] DATE CREATED AUTHOR AUTHOR'S ORGANIZ ATION 07/02/2022 [facility] DATE CREATED AUTHOR AUTHOR'S ORGANIZ ATION 09/28/2022 [facility] DATE CREATED AUTHOR AUTHOR'S ORGANIZ ATION 04/15/2023 [facility] DATE CREATED AUTHOR AUTHOR'S ORGANIZ ATION 05/04/2023 [facility] DATE CREATED AUTHOR AUTHOR'S ORGANIZ ATION 07/09/2024 [facility] DATE CREATED AUTHOR AUTHOR'S ORGANIZ ATION 02/27/2025 [place] [facility] DATE CREATED AUTHOR AUTHOR'S ORGANIZ ATION 03/15/2025 [facility] DATE CREATED AUTHOR AUTHOR'S ORGANIZ ATION 03/17/2025 [facility] Care Teams (unrecognized sec tion and content) Preschool Paraprofessional Relationship Specialty Start Date End Date Eloy Bansal MD [address] [place], [place] [id number] PCP - General 05/13/22 Preschool Paraprofessional Relationship Specialty Start Date End Date Eloy Bansal MD [address] [place] [address] PCP - General 05/13/22 Preschool Paraprofessional Relationship Specialty Start Date End Date Eloy Bansal MD [address] [place] [id number] PCP - General Family Medicine 03/04/25 Preschool Paraprofessional Relationship Specialty Start Date End Date Eloy Bansal MD [address] [place] [address] PCP - General Family Medicine 03/04/25 Reason for Visit (unrecogniz ed section and content) Reason Comments Possible thrombosed hemorrhoid Specialty Diagnoses / Procedures Referred By Jocelyne t Referred To Contact General Surgery Diagnoses Thrombosed external hemorrhoid Procedures ND OFFICE/OUTPATIENT [facility] 60 MINUTES Jailyn Douglas NP [address] [place] [address] Phone: tel: fax: [facility] [address] [place] [address] Phone: tel: fax: Referral ID Status Reason Start Date Expiration Date V isits Requested Visits Authorized [id number] Closed Specialty Services Required 02/28/2025 08/27/2025 1 1 Reason Comments follow up Exc. of thrombosed hemorrhoid in office FOR RECORDS PERTAINING TO PATIENTS WHO ARE [...] BE BASED ON THE PRIMARY CLINICAL RECORDS. [employer] provides no warranty or guarantee of the accuracy or completeness of information in this document.
--- NOTE | 2025-04-20 11:42 | ECG_ITS ---
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 Measurements Intervals [place] Rate: 113 P: 41 NM: 232 QRS: 95 QRSD: 92 T: 66 QT: 318 QTc: 385 Interpretive Statements 1120 Sinus tachycardia 1574 with frequent ventricular premature complexes 2231 First degree AV block 4068 Nonspecific Twave abnormality 6230 Left atrial enlargement 7102 Moderate right axis deviation 9150 abnormal ECG Compared to ECG 02/15/2025 23:15:08 First degree AV block now present Atrial abnormality now present Right-axis deviation now present Electronically Signed On 04-20-2025 15:19:47 EDT by CARLEEN HECTOR M.D.
--- NOTE | 2025-04-20 11:47 | XR_ITS ---
The [address] [address] Patient Name: ZENA METZGER MRN: [id number] date: 1960 Sex: M Assigned Patient Location: ER Current Patient Location: ER Accession/Order Number: [id number] Exam Date: 04/20/2025 12:24 Report Date: 04/20/2025 12:25 At the request of: CLAUDIA YODER MD Procedure: XR chest 1V Single view chest: CLINICAL HISTORY: Cough, shortness of breath COMPARISON: Chest 02/15/2025 FINDINGS: Heart normal in size. Mild interstitial changes. No consolidation pneumothorax pleural effusion or free air. XR/XR chest 1V IMPRESSION: MILD INTERSTITIAL CHANGES. NO CONSOLIDATION TO SUGGEST PNEUMONIA. Impression dictated by: Ab Sandhu Jr., D.ONancy 04/20/2025 12:25 PM Dictation Location: [place] [address] Electronically authenticated by: [id number] Y Date: 04/20/2025 12:25
--- NOTE | 2025-04-20 11:48 | ED.GENADUL1 ---
HPI HPI - General Adult General Chief complaint: Upper Respiratory Infection Stated complaint: URTI COMPLAINTS, WEAKNESS Time Seen by Provider: 04/20/25 11:45 Source: patient Mode of arrival: Wheelchair History of Present Illness HPI narrative: 64-year-old male presents to the emergency department for cough and shortness of breath. For 4 days he has been coughing up thick green phlegm. He used his inhaler at home. No known fever no hemoptysis. He is a smoker and has a history of COPD. Related Data Home Medications ?Medication ?Instructions ?Recorded ?Confirmed albuterol sulfate 90 mcg/actuation 2 inh inhalation Q4H PRN shortness 03/11/24 04/20/25 aerosol inhaler of breath or wheezing atorvastatin 40 mg tablet 40 mg PO DAILY 03/11/24 04/20/25 ipratropium 0.5 mg-albuterol 3 mg 3 ml inhalation Q6H 03/11/24 03/11/24 (2.5 mg base)/3 mL nebulization soln metoprolol succinate 25 mg 12.5 mg PO Q12H 03/11/24 04/20/25 tablet,extended release 24 hr mometasone-formoterol HFA 200 2 inh inhalation DAILY 03/11/24 04/20/25 mcg-5 mcg/actuation aerosol inhaler (Dulera) sacubitril 24 mg-valsartan 26 mg 0.5 tab PO BID 03/11/24 04/20/25 tablet (Entresto) tiotropium bromide 2.5 2 inh inhalation Q24H 03/11/24 04/20/25 mcg/actuation mist for inhalation (Spiriva Respimat) aspirin 81 mg chewable tablet 81 mg PO DAILY 02/15/25 04/20/25 (Children's Aspirin) Previous Rx's ?Medication ?Instructions ?Recorded dicyclomine 20 mg tablet 20 mg PO QID PRN abdominal pain 03/11/24 #20 tabs famotidine 20 mg tablet (Pepcid) 20 mg PO BID #20 tabs 03/11/24 azithromycin 250 mg tablet See Rx Instructions PO .COMPLEX #6 04/20/25 (Zithromax Z-Freder[place]) tabs benzonatate 100 mg capsule 100 mg PO TID PRN cough #20 caps 04/20/25 prednisone 10 mg tablet See Rx Instructions .Route 04/20/25 .COMPLEX #30 tabs Allergies Allergy/AdvReac Type Severity Reaction Status Date / Time No Known Drug Allergies Allergy Verified 02/15/25 23:20 Opioid HPI Opioid Management Most Recent Opioid Data: Last Pain Scale 8 02/16/25, 00:36 Review of Systems ROS Narrative A ten point review of systems is negative except as noted above. PFSH PFSH Medical History (Updated 04/20/25 @ 13:39 by Otis Lopez MD) FH: cholecystectomy ?Z83.79 - Family history of other diseases of the digestive system (ICD-10) COPD (chronic obstructive pulmonary disease) ?J44.9 - Chronic obstructive pulmonary disease, unspecified (ICD-10) Surgical History (Updated 02/15/25 @ 23:22 by Brandie Livingston) H/O knee surgery ?Z98.890 - Other specified postprocedural states (ICD-10) Social History Little interest or pleasure in doing things: not at all Feeling down, depressed, or hopeless: not at all Exam Narrative Exam Narrative: Nurses note and vital signs reviewed and patient is not hypoxic. General: The patient appears dyspneic but in no acute distress. Skin: Warm, dry, no pallor noted. There is no rash noted. Head: Normocephalic, atraumatic Eye: Normal conjunctiva, no drainage Ears, Nose, Mouth, and Throat: oral mucosa is moist. Nares patent. Cardiovascular: Regular Rate and Rhythm and mildly tachycardic Respiratory: Breath sounds are equal but quite diminished. Some rhonchi present. Back: non-tender GI: Soft and nontender Musculoskeletal: The patient has no evidence of calf tenderness, no pitting edema, symmetrical pulses noted bilaterally Neurological: A&O, normal speech Psychiatric: Cooperative Constitutional Vital Signs, click to edit/add: Last Vital Signs Temp 98.5 F 04/20/25 11:24 Pulse 107 H 04/20/25 12:18 Resp 22 H 04/20/25 11:24 BP 121/67 04/20/25 13:26 Pulse Ox 96 04/20/25 12:18 O2 Del Method Nasal Cannula 04/20/25 12:18 O2 Flow Rate 2 04/20/25 12:18 Course Vital Signs Vital signs: Vital Signs Temperature 98.5 F 04/20/25 11:24 Pulse Rate 111 H 04/20/25 11:24 Respiratory Rate 22 H 04/20/25 11:24 Blood Pressure 98/69 04/20/25 11:24 Pulse Oximetry 89 L 04/20/25 11:24 Oxygen Delivery Method Room Air 04/20/25 11:24 Temperature 98.5 F 04/20/25 11:24 Pulse Rate 107 H 04/20/25 12:18 Respiratory Rate 22 H 04/20/25 11:24 Blood Pressure 121/67 04/20/25 13:26 Pulse Oximetry 96 04/20/25 12:18 Oxygen Delivery Method Nasal Cannula 04/20/25 12:18 Oxygen Delivery Flow Rate 2 04/20/25 12:18 Medical Decision Making MDM Narrative Medical decision making narrative: Chest x-ray is negative, and his COVID is negative. At this point he does not require admission to the hospital. He was given IV steroid here and aerosol treatment and will be discharged home on prednisone, Zithromax, and Tessalon. Treatment diagnosis and follow-up were discussed with the patient. Differential Diagnosis Differential Diagnosis: Pneumonia, URI, COVID Lab Data Lab results reviewed: Yes I reviewed the patient's lab results Labs: Lab Results 04/20/25 04/20/25 Range/Units 11:31 11:54 WBC 13.3 H (4.0-11.0) 10^3/uL RBC 4.36 L (4.70-6.10) 10^6/uL Hgb 13.9 L (14.0-18.0) g/dL Hct 39.0 L (42.0-54.0) % MCV 89.4 (80.0-94.0) fL MCH 31.9 (25.9-34.0) pg MCHC 35.6 H (29.9-35.2) g/dL RDW 12.7 (11.0-15.0) % Plt Count 235 (150-450) 10^3/uL MPV 10.0 (9.5-13.5) fL Seg Neuts % (Manual) 79.0 H (43.0-75.0) Band Neutrophils % 4.0 (0-5) % Lymphocytes % (Manual) 3.0 L (20.5-60.0) % Monocytes % (Manual) 14.0 H (1.7-12.0) % Eosinophils % (Manual) 0.0 L (0.9-7.0) % Basophils % (Manual) 0.0 L (0.2-2.0) % Neutrophils # (Manual) 10.50 H (1.4-6.5) 10^3/uL Band Neutrophils # 0.5 H (0.0-0.3) 10^3/uL Lymphocytes # (Manual) 0.39 L (1.20-3.80) 10^3/uL Monocytes # (Manual) 1.86 H (0.30-0.80) 10^3/uL Eosinophils # (Manual) 0.00 (0.00-0.70) 10^3/uL Basophils # (Manual) 0.00 (0.00-0.10) 10^3/uL Sodium 131 L (136-145) mmol/L Potassium 3.3 L (3.5-5.1) mmol/L Chloride 92 L (98-107) mmol/L Carbon Dioxide 32.5 H (21.0-32.0) mmol/L Anion Gap 9.8 BUN 6.0 L (7.0-18.0) mg/dL Creatinine 0.80 (0.70-1.30) mg/dL Est GFR ( Amer) >60 (>=60 mL/min/1.73m^2) Est GFR (Non-Af Amer) >60 (>=60 mL/min/1.73m^2) BUN/Creatinine Ratio 7.5 Glucose 164 H (74-106) mg/dL Calcium 8.6 (8.5-10.1) mg/dL Total Bilirubin 1.6 H (0.2-1.0) mg/dL AST 18 (15-37) U/L ALT 23 (16-63) U/L Alkaline Phosphatase 88 (46-116) U/L Total Protein 7.2 (6.4-8.2) g/dL Albumin 3.2 L (3.4-5.0) g/dL Globulin 4.0 g/dL Albumin/Globulin Ratio 0.8 SARS-CoV-2 Ag (CV2AG) Negative (NEGATIVE) Imaging Data Chest x-ray: Radiologist's impression: ITS Impressions Chest X-Ray 04/20/25 11:47 IMPRESSION: MILD INTERSTITIAL CHANGES. NO CONSOLIDATION TO SUGGEST PNEUMONIA. Impression dictated by: Ab Sandhu Jr., D.O. 04/20/2025 12:25 PM Dictation Location: [place] [address] Electronically authenticated by: [id number] Y Date: 04/20/2025 12:25 ECG Data Attestation: I personally reviewed and interpreted this ECG as follows: (EKG on my interpretation shows sinus rhythm with PVCs.) Critical Care Time Critical Care Time Critical Care Time: Yes Total Critical Care Time: 35 Attestation: Due to the high probability of sudden and clinically significant deterioration in the patient's condition he/she required the highest level of my preparedness to intervene urgently I provided critical care time including documentation time, medication orders and management, reevaluation, vital sign assessment, ordering and reviewing of lab tests, ordering and reviewing of x-ray studies, and admission orders. Aggregate critical care time is 35 minutes including only time during which I was engaged in work directly related to his/her care and did not include time spent treating other patients simultaneously. Discharge Plan Discharge Chief Complaint: Upper Respiratory Infection Clinical Impression: Upper respiratory infection Patient Disposition: Home, Self-Care Time of Disposition Decision: 13:39 Condition: Good Mode of Transportation: Private Vehicle Prescriptions / Home Meds: New prednisone 10 mg tablet See Rx Instructions .ROUTE .COMPLEX Qty: 30 0RF Rx Instructions: 4 by mouth daily for three days then 3 by mouth daily for three days then 2 by mouth daily for three days then 1 by mouth daily for three days azithromycin [Zithromax Z-[place]er[place]] 250 mg tablet See Rx Instructions .ROUTE .COMPLEX Qty: 6 0RF Rx Instructions: For 250 mg dose pack: take 500 mg today (day 1), then 250 mg for 4 days (days 2-5) benzonatate 100 mg capsule 100 mg PO TID PRN (Reason: cough) Qty: 20 0RF No Action albuterol sulfate 90 mcg/actuation HFA aerosol inhaler 2 inh INHALATION Q4H PRN (Reason: shortness of breath or wheezing) atorvastatin 40 mg tablet 40 mg PO DAILY ipratropium-albuterol 0.5 mg-3 mg(2.5 mg base)/3 mL solution for nebulization 3 ml INHALATION Q6H metoprolol succinate 25 mg tablet extended release 24 hr 12.5 mg PO Q12H Dulera 200-5 mcg/actuation HFA aerosol inhaler 2 inh INHALATION DAILY sacubitril-valsartan [Entresto] 24-26 mg tablet 0.5 tab PO BID Spiriva Respimat 2.5 mcg/actuation mist 2 inh INHALATION Q24H famotidine [Pepcid] 20 mg tablet 20 mg PO BID Qty: 20 0RF dicyclomine 20 mg tablet 20 mg PO QID PRN (Reason: abdominal pain) Qty: 20 0RF aspirin [Children's Aspirin] 81 mg tablet,chewable 81 mg PO DAILY Print Language: Greek Instructions: Upper Respiratory Infection (ED) Referrals: JAILYN CARNES [Primary Care Provider, CREATIVE DEVELOPER] - 1 week
[2025-04-20 11:53] LABS: SARS-CoV-2 Ag NEGATIVE (NEGATIVE)
[2025-04-20 12:04] LABS: Hematocrit 39.0 % (42.0-54.0); Hemoglobin 13.9 g/dL (14.0-18.0); Mean Corpuscular HGB Conc 35.6 g/dL (29.9-35.2); Mean Corpuscular Hemoglobin 31.9 pg (25.9-34.0); Mean Corpuscular Volume 89.4 fL (80.0-94.0); Platelet Count 235 10^3/uL (150-450); Red Blood Count 4.36 10^6/uL (4.70-6.10); White Blood Count 13.3 10^3/uL (4.0-11.0)
[2025-04-20] MEDS: METHYLPREDNISOLONE SOD SUCC PF 125 MG/2 ML VIAL IVP (12:06)
[2025-04-20 12:14] LABS: Alanine Aminotransferase 23 U/L (16-63); Albumin Globulin Ratio 0.8; Albumin Level 3.2 g/dL (3.4-5.0); Alkaline Phosphatase 88 U/L (46-116); Anion Gap 9.8; Aspartate Amino Transferase 18 U/L (15-37); Blood Urea Nitrogen 6.0 mg/dL (7.0-18.0); Calcium 8.6 mg/dL (8.5-10.1); Carbon Dioxide 32.5 mmol/L (21.0-32.0); Chloride 92 mmol/L (98-107); Estimated GFR (African America >60 (>=60 mL/min/1.73m^2); Estimated GFR (Non-African Ame >60 (>=60 mL/min/1.73m^2); Globulin 4.0 g/dL; Glucose 164 mg/dL (74-106); Potassium 3.3 mmol/L (3.5-5.1); Sodium 131 mmol/L (136-145); Total Protein 7.2 g/dL (6.4-8.2)
[2025-04-20] MEDS: ALBUTEROL SULFATE 2.5 MG/3 ML VIAL NEB IH (12:17)
[2025-04-20 12:19] LABS: Band Neutrophils Absolute 0.5 10^3/uL (0.0-0.3); Basophils Abs Manual 0.00 10^3/uL (0.00-0.10); Basophils Percent Manual 0.0 % (0.2-2.0); Eosinophils Absolute Manual 0.00 10^3/uL (0.00-0.70); Eosinophils Percent Manual 0.0 % (0.9-7.0); Lymphocytes Absolute Manual 0.39 10^3/uL (1.20-3.80); Lymphocytes Percent Manual 3.0 % (20.5-60.0); Monocytes Absolute Manual 1.86 10^3/uL (0.30-0.80); Monocytes Percent Manual 14.0 % (1.7-12.0); Segmented Neut Absolute Manual 10.50 10^3/uL (1.4-6.5); Segmented Neutrophils % Manual 79.0 (43.0-75.0)
--- NOTE | 2025-04-20 14:40 | ECG_ITS ---
The [facility] Test Date: 2025-04-20 Pat Name: ZENA METZGER Department: Room: - Gender: Male Health Information Provider: : 1960 Requested By: 1030 Order Number: [id number] Reading MD: CARLEEN HECTOR M.D. Measurements Intervals [place] Rate: 103 P: 66 NE: 150 QRS: 87 QRSD: 96 T: 54 QT: 352 QTc: 412 Interpretive Statements 1120 Sinus tachycardia 1574 with frequent ventricular premature complexes 9140 abnormal rhythm ECG Compared to ECG 04/20/2025 11:49:49 First degree AV block no longer present Atrial abnormality no longer present Right-axis deviation no longer present Electronically Signed On 04-20-2025 15:20:31 EDT by CARLEEN HECTOR M.D.
== END 2025-04-20 14:09 | disposition home or self-care (01) ==
PROVIDERS: Emergency Provider Emergency Medicine; PCP Nurse Practitioner
DX: J06.9 Acute upper respiratory infection, unspecified (principal); R05.9 Cough, unspecified; R06.02 Shortness of breath; J44.9 Chronic obstructive pulmonary disease, unspecified
CPT/HCPCS: 36415; 71045; 80053; 85007; 85027; 87811; 93005; 94640; 96374; 99285; J2919

== ENCOUNTER 2025-04-22 15:06 | Emergency (ER) | payer OTHER, SELFPAY ==
--- OUTSIDE RECORDS SUMMARY | 2024-10-10 06:30 | XMS_ITS ---
Author Organization The [facility] in [place] Address [address] [place] [address] Care Team Providers Care Clinical Provider Trainer Name Role Phone Luiz Sue MD Primary Care Provider Shade De Anda [phone] REASON FOR VISIT 6m COPD Encounters Encounter Location Date Provider Diagnosis Pulmonary Medicine [place] [address] [place] [address] 10/10/2024 Shade Nuñez Plan Of Treatment Next Appt Details Provider Name:Radiology Prov ider, 06/05/2025 12:00:00 AM, [address], [address] [facility], [place], [address], Progress Notes * Mike METZGER HDOB:1960 (64 yo M)Acc No.[id number]:10/10/2024 UNLOCKED PROGRESS NOTE Follow Up Patient: Meliton MODIMike MERCEDES Provider: Antonio Nuñez DO :1960 A ge:63 Y S ex:Male Date:10/10/2024 Address:[address] [place], [place] [address] Pcp:Luiz Sue MD Subjective: * Chief Complaints: * 1 . 6m COPD. * Medical History: Objective: * Vitals: Assessment: Plan: * Treatment: * * Electronic signature of Vandana Nuñez DO on 04/22/2025 at 03:29 PM EDT Sign off status: Pending Visit Status: R /S By O/P (Rescheduled by Office/Provider) * Provider: Antonio Nuñez, Date: 0 10/10/2024 Generated for Prabhakar velasco/Lizz/Merrill on: 0 04/22/2025 03:29 PM EDT
--- OUTSIDE RECORDS SUMMARY | 2024-10-17 10:00 | XMS_ITS ---
Author Organization [facility] in [place] Address [address] [place] [address] Care Team Providers Care Manager Ui Name Role Phone Luiz Sue MD Primary Care Provider Shade De Anda [phone] Allergies No Known Allergies REASON FOR VISIT 6m COPD Medications Medication SIG (Take, Route, Frequency, Duration) Notes Start Date End Date Status Albuterol Sulfate HFA 108 (90 Base) MCG/ACT 2 puffs as needed for SOB Inhalation Q4H for 90 days Active Meclizine HCl 25 MG 1 tablet as needed f or dizziness Orally every 6 hours for 30 days Active Metoprolol Succinate ER 25 MG 1 tablet Orally Once a day Active Albuterol Sulfate HFA 108 (90 Base) MCG/ACT 2 puffs as needed for SOB Inhalation Q4H for 90 days Active Aspirin 81 MG 1 tablet Orally Once a day Active Entresto 24-26 MG 1 tablet Orally Twic e a day Active Atorvastatin Calcium 40 MG 1 tablet Oral ly Once a day Active Spiriva Respimat 2.5 MCG/ACT 2 puffs Inhalation QD for 90 days Active Dulera 200-5 MCG/ACT 2 puffs Inhalation BID for 90 days Rinse after use Active Ipratropium-Albuterol 0.5-2.5 (3) MG/3ML 3mL Inhalation QID for 30 days Dispense 120 ampules Active Social History Tobacco Use: Social History Observation Description Date Details (start date - stop date) Current Smoker NA - NA Tobacco Control (Standard) Question Answer Notes Tobacco use: Current every day smoker Additional Findings: Tobacco user Light cigarett e smoker (1-9 cigs/day) Vital Signs Temperature 96.9 degrees Fahrenheit 10/17/19 25 Blood pressure systolic 113 mm Hg 10/17/19 25 Blood pressure diastolic 56 mm Hg 025 Heart Rate 101 /min 10/17/2024 Respiratory Rate 18 /min 10/17/2024 Height 70 in 10/17/2024 Weight 167.0 lbs 10/17/2024 BMI 23.96 kg/m2 10/17/2024 Oximetry 93 % 10/17/2024 Encounters Encounter Location Date Provider Diagnosis [facility] [place] [address] [place] [address] 10/17/2024 Shade Nuñez Multiple pulmonary nodules R91.8 ; Centrilobular emphysema J43.2 ; Chronic respiratory failure with hypoxia J96.11 ; Cigarette nicotine dependence with nicotine-induced disorder F17.219 ; Encounter for screening for malignant neoplasm of respiratory organs Z12.2 and prison (current) use of inhaled steroids Z79.51 Assessments Encounter Date Diagnosis (ICD Code) Assessment Notes Treatment Notes Treatment Clinical Notes Section Notes 10/17/2024 Multiple pulmonary nodules (ICD-10 - R91.8) Nodules unchanged on chest CT 06/21/2023 - RADS-2. None identified on 06/12/2024. 10/17/2024 Centrilobular emphysema (ICD-10 - J43.2) Dulera + Spiriva > Symbicort + Spiriva > Trelegy Doing okay on Dulera + Spiriva. Continues to use albuterol up to 5 times a day. Paul discussion that his breathing will unlikely improve until he stops smoking, which he acknowledged. Continue current treatment. 10/17/2024 Chronic respiratory failure with hypoxia (ICD-10 - J96.11) Xmby-tm-ygin encounter performed with the patient to document continued need for supplemental oxygen (O2). -Qualifying study: Nocturnal pulse ox 08/01/2023 -Study findings: SpO2 <89% was 24.2% of sleep time (1:49:52) -Flow & directions: 2L/min @ HS-Patient voices adherence to recommended usage: Yes, @ night-Symptom control on O2: Better restful sleep-Counseled patient not begin, restart, or continue smoking, around the O2 due to risk of fire which could result in damage to the O2 tanks & lines, smoke inhalation and flame damage to the airway, significant gill, potential , property damage, and potential harm & to bystanders. Additionally, counseled it is not arias to begin, restart, or continue smoking given the underlying pulmonary disease that led to the point of requiring O2.-Recommendations : Continue using O2 @ HS. 10/17/2024 Cigarette nicotine dependence with nicotine-induced disorder (ICD-10 - F17.219) 2ppd x 44 years minimum No significant change in his smoking habits. Continues to smoke ~6 cigarettes a day. He voiced he knows he should stop. He will try to work on it. LDCT will be due 06/2025. 10/17/2024 Encounter for screening for malignant neoplasm of respiratory organs (ICD-10 - Z12.2) Low-dose CT (LDCT) was recommended for lung cancer screening. The patient meets criteria including age 50-77, a smoking history of at least 20 pack-years, is currently smoking or has ceased smoking within the past 15 years, and has no signs or symptoms of lung cancer. Shared decision making performed with the patient. After LDCT has been completed, will review report and/or imaging and provide appropriate recommendations for the patient, including additional follow up if needed. Patient was counseled on smoking cessation/continued tobacco abstinence. LDCT due 06/2025. 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 Plan Of Treatment Medication Medication Name Sig Start Date Stop Date Notes Albuterol Sulfate HFA 108 (9 0 Base) MCG/ACT 2 puffs as needed for SOB Inhalation Q4H for 90 days Spiriva Respimat 2.5 MCG/ACT 2 puffs Inh alation QD for 90 days Dulera 200-5 MCG/ACT 2 puffs Inhalation BID for 90 days Ipratropium-Albuterol 0.5-2. 5 (3) MG/3ML 3mL Inhalation QID for 30 days Treatment Notes Assessment Notes Multiple pulmonary nodules Nodules unchanged on chest CT 06/21/2023 - RADS-2. None identified on 06/12/2024. Centrilobular emphysema Doing okay on Dulera + Spiriva. Continues to use albuterol up to 5 times a day. Paul discussion that his breathing will unlikely improve until he stops smoking, which he acknowledged. Continue current treatment. Chronic respiratory failure with hypoxia Pmbb-gu-yufp encounter performed with the patient to document continued need for supplemental oxygen (O2). -Qualifying study: Nocturnal pulse ox 08/01/2023 -Study findings: SpO2 <89% was 24.2% of sleep time (1:49:52) -Flow & directions: 2L/min @ HS-Patient voices adherence to recommended usage: Yes, @ night-Symptom control on O2: Better restful sleep-Counseled patient not begin, restart, or continue smoking, around the O2 due to risk of fire which could result in damage to the O2 tanks & lines, smoke inhalation and flame damage to the airway, significant gill, potential , property damage, and potential harm & to bystanders. Additionally, counseled it is not arias to begin, restart, or continue smoking given the underlying pulmonary disease that led to the point of requiring O2.-Recommendations: Continue using O2 @ HS. Cigarette nicotine dependenc e with nicotine-induced disorder No significant change in his smoking habits. Continues to smoke ~6 cigarettes a day. He voiced he knows he should stop. He will try to work on it. LDCT will be due 06/2025. Encounter for screening for malignant neoplasm of respiratory organs Low-dose CT (LDCT) was recommended for lung cancer screening. The patient meets criteria including age 50-77, a smoking history of at least 20 pack-years, is currently smoking or has ceased smoking within the past 15 years, and has no signs or symptoms of lung cancer. Shared decision making performed with the patient. After LDCT has been completed, will review report and/or imaging and provide appropriate recommendations for the patient, including additional follow up if needed. Patient was counseled on smoking cessation/continued tobacco abstinence. LDCT due 06/2025. prison (current) use of i nhaled steroids Patient was counseled to rinse & gargle with water after inhaled corticosteroid use. Future Test Test Name Order Date CT Chest Low Dose for Screening* 025 Next Appt Details Follow Up: 8 Months, Reason: COPD, LDCT review Provider Name:Radiology [facility] cookie, 06/05/2025 12:00:00 AM, [address], [address] [facility], [place], [address], Procedure Notes * Category Sub-Category Detail Notes PFT Data: 05/23/2024-FEV1/F VC: 49%:-FEV1: 36%-FVC: 55%-RWS56-89%: 18%-Bronchodilator response: Positive-RV: 218%-T%-DLCO: 54%-Flow-volume loop: Severe obustruction05/21/2022-FEV1/FVC: 42%:-FEV1: 32%-FVC: 58%-FIP21-59%: 14%-Bronchodilator response: Positive-RV: 215%-T%-DLCO: 51%-Flow-volume loop: Severe obustruction09/14/2018-FEV1/FVC: 48%-FEV1: 40%-FVC: 63%-FNK86-65%: 17%-Bronchodilator response: Positive-RV: 187%-T%-DLCO: 64%-Flow-volume loop: Severe obustruction Progress Notes * Mike METZGER HDOB:1960 (63 yo M)Acc No.[id number]:10/17/2024 Follow Up Patient: Meliton Mike CALI H Provider: Antonio Nuñez DO :1960 A ge:63 Y S ex:Male Date:10/17/2024 Address:[address] [place], [place] [id number] Pcp:Luiz Sue MD Check In:01:50 PM ESTCheck O ut:02:19 PM EST Subjective: * Chief Complaints: * 6 m COPD * HPI: G eneral: Patient f inallyhad the cholecystectomy performed on 08/10/2024. It was without pulmonary complications. He states he feels much better now that it is out - the abdominal pain has resolved. Reviwed LDCT from 06/12/2024 - reported as no change from 06/21/2023, noted just mild emphysema, RADS-1. There were previously reported pulmonary nodules, but I did not identify any clearly visible nodules on the 06/12/2024 study. His breathing is doing so-so. He is compliant with his Dulera and Spiriva. He has had no exacerbations of his breathing over the past 6 months. He reports no adverse drug effects. He admits to using albuterol up to 5 times a day. He continues to smoke approximately 6 cigarettes a day he does not smoke cigarette. He knows he needs to quit, but states he just does not have a great desire to completely stop. MA Intake Comments:. Patient presents for a follow-up for COPD. Patient had his LDCT performed on 06/12/2024 at [facility]. Patient wears 1.5L O2 at home. DME: [facility]. Patient admits to smoking 6 cigarettes per day. Patient states his breathing is unchanged since his last visit. Patient had a Cholecystomy on 08/10/2024 at [facility]. Patient is using Dulera & Spiriva daily with b enefit. Patient reports using Albuterol five times per day. Patient is under the care of [facility] Cardiology. * ROS: G eneral/Constitutional: Fever or sweats d enies. C hange of appetite d enies. C hills d enies. W eight Change d enies. H EENT: Dry mouth d enies. S ore throat d enies. N osebleed d enies. O ral Ulcers d enies. P ost Nasal Drip D enies. H oarseness?Denies. C ardiovascular: Tachycardia d enies. C hest pain d enies. P alpitations d enies. R espiratory: Chest tightness d enies. P leurisy D enies. D yspnea w ith activity. C ough o ccasionally. H emoptysis d enies. W heezing d enies. G astrointestinal: Acid Reflux/GERD/Heartburn d enies. D ysphagia d enies. A bdominal pain r esolved since cholecystectomy. M usculoskeletal: Arthralgias/joint pain D enies. S kin: Easy bruising d enies. N eurologic: Dizziness/Lightheadedness o ngoing. H eadache a dmits. S eizures d enies. T remor d enies. H ematology: Abnormal Bleeding d enies. P sychiatric: Anxiety d enies. 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 Modified On:02/21/2023U Status:confirmed I25.10 Coronary artery dise ase Modified On:08/22/2023 Status:confirmed J30.9 Allergic rhinitis Modified On:08/22/2023 Status:confirmed I50.22 Chronic systolic con gestive heart failure Modified On:08/22/2023 Status:confirmed F17.219 Cigarette nicotine d ependence with nicotine-induced disorder Modified On:08/22/2023 Status:confirmed R91.8 Multiple pulmonary n odules Modified On:08/22/2023 Status:confirmed * Medical History: * Surgical History: r ight knee arthroscopy cyst removal Lung Biopsy 2Cardiac Catheterization 2cholecystectomy 08/10/2024 * Hospitalization/Major Diagno stic Procedure: D enies Past Hospitalization * Family History: F ather: diagnosed with Unspecified heart disease. M other: diagnosed with Other malignant neoplasm of unspecified site. * Social History: T obacco Use: T obacco Control (Standard) T obacco use: C urrent every day smoker A dditional Findings: Tobacco user L ight cigarette smoker (1-9 cigs/day) Electronic Cigarette use C urrent user N o LM: Additional Tobacco Questions N umber of Years Pt Smoked: 4 4 N umber of Packs per Day: 2 M iscellaneous: O ccupation O ccupation: U nemployed [employer] Pets: cats. D rugs/Alcohol: D rugs H ave you used drugs other than those for medical reasons in the past 12 months? N o D oes the Patient have a History of Drug Abuse in the Past? N o Caffeine I ntake: 1 -2 cups per day Do you drink alcohol?: No. Do you smoke marijuana?: Denies. * Medications: T akingAlbuterol Sulfate HFA 108 (90 Base) MCG/ACT Aerosol Solution 2 puffs as needed for SOB Inhalation Q4H Aspirin 81 MG Tablet Delayed Release 1 tablet Orally Once a day Atorvastatin Calcium 40 MG Tablet 1 tablet Orally Once a day Dulera(Mometasone Furo-Formoterol Fum) 200-5 MCG/ACT Aerosol 2 puffs Inhalation BID Rinse after useEntresto(Sacubitril-Valsartan) 24-26 MG Tablet 1 tablet Orally Twice a day Ipratropium-Albuterol 0.5-2.5 (3) MG/3ML Solution 3mL Inhalation QID Dispense 120 ampulesMeclizine HCl 25 MG Tablet Chewable 1 tablet as needed for dizziness Orally every 6 hours Metoprolol Succinate ER 25 MG Tablet Extended Release 24 Hour 1 tablet Orally Once a day Spiriva Respimat(Tiotropium [place] Monohydrate) 2.5 MCG/ACT Aerosol Solution 2 puffs Inhalation QD Taking Albuterol Sulfate HFA 108 (90 Base) MCG/ACT Aerosol Solution 2 puffs as needed for SOB Inhalation Q4H Taking Aspirin 81 MG Tablet Delayed Release 1 tablet Orally Once a day Taking Atorvastatin Calcium 40 MG Tablet 1 tablet Orally Once a day Taking Dulera(Mometasone Furo-Formoterol Fum) 200-5 MCG/ACT Aerosol 2 puffs Inhalation BID Rinse after useTaking Entresto(Sacubitril-Valsartan) 24-26 MG Tablet 1 tablet Orally Twice a day Taking Ipratropium-Albuterol 0.5-2.5 (3) MG/3ML Solution 3mL Inhalation QID Dispense 120 ampulesTaking Meclizine HCl 25 MG Tablet Chewable 1 tablet as needed for dizziness Orally every 6 hours Taking Metoprolol Succinate ER 25 MG Tablet Extended Release 24 Hour 1 tablet Orally Once a day Taking Spiriva Respimat(Tiotropium [place] Monohydrate) 2.5 MCG/ACT Aerosol Solution 2 puffs Inhalation QD DiscontinuedNystatin 714692 UNIT/ML Suspension 4 mL Mouth/Throat Four times a day Pantoprazole Sodium 40 MG Tablet Delayed Release Oral PriLOSEC OTC(Omeprazole Magnesium) 20 MG Tablet Delayed Release 1 tablet 30 minutes before morning meal Orally Once a day Discontinued Nystatin 601147 UNIT/ML Suspension 4 mL Mouth/Throat Four times a day Discontinued Pantoprazole Sodium 40 MG Tablet Delayed Release Oral Discontinued PriLOSEC OTC(Omeprazole Magnesium) 20 MG Tablet Delayed Release 1 tablet 30 minutes before morning meal Orally Once a day * Allergies: N .K.D.A.no[Allergies Verified] Objective: * Vitals: W t:167.0lbs, Ht: 70 in, BP: sittin/55 mm Hg,repeat:113/56mm Hg, Temp:Forehead:96.9F, HR:101/min, RR:18/min, BMI:23.96Index, Oxygen sat %:Room Air:93%, Ht-cm: 177.8 cm, Wt-k.75 kg. * Examination: E xam: GENERAL APPEARANCE: A ppears stated age. Skin N ormal. Mouth P ink and moist. No candidiasis. Oropharynx/Tongue M allampati Class II. Trachea M idline. Chest N ormal. Respiratory Normal M ovements, E ffort N ormal. Auscultation B reath sounds are diminished but clear to auscultation without wheezes, crackles, or rhonchi. Cardiac R egular rate and rhythm. Gastrointestinal N ormal. Vascular N o edema. Musculoskeletal N ormal posture. Neurological F ocal, intact. Psychiatric A lert and oriented x3. Mentation/Cognition N ormal. Assessment: * Assessment: 1. C entrilobular emphysema - J43.2 (Primary) N otes :Dulera + Spiriva > Symbicort + Spiriva > Trelegy 2 . M ultiple pulmonary nodules - R91.8 3 . C hronic respiratory failure with hypoxia - J96.11 4 . C igarette nicotine dependence with nicotine-induced disorder - F17.219 N otes :2ppd x 44 years minimum 5 . E ncounter for screening for malignant neoplasm of respiratory organs - Z12.2 6 . L fariba term (current) use of inhaled steroids - Z79.51 Plan: * Treatment: 2. M ultiple pulmonary nodules Notes: Nodules unchanged on chest CT 06/21/2023 - RADS-2. None identified on 06/12/2024. 3. C hronic respiratory failure with hypoxia Notes: Yumx-uk-made encounter performed with the patient to document continued need for supplemental oxygen (O2). -Qualifying study: Nocturnal pulse ox 08/01/2023 -Study findings: SpO2 <89% was 24.2% of sleep time (1:49:52) -Flow & directions: 2L/min @ HS-Patient voices adherence to recommended usage: Yes, @ night-Symptom control on O2: Better restful sleep-Counseled patient not begin, restart, or continue smoking, around the O2 due to risk of fire which could result in damage to the O2 tanks & lines, smoke inhalation and flame damage to the airway, significant gill, potential , property damage, and potential harm & to bystanders. Additionally, counseled it is not arias to begin, restart, or continue smoking given the underlying pulmonary disease that led to the point of requiring O2.-Recommendations: Continue using O2 @ HS. 4. C igarette nicotine dependence with nicotine-induced disorder I maging: CT Chest Low Dose for Screening* (Ordered for 06/05/2025) Notes: No significant change in his smoking habits. Continues to smoke ~6 cigarettes a day. He voiced he knows he should stop. He will try to work on it. LDCT will be due 06/2025. 5. E ncounter for screening for malignant neoplasm of respiratory organs I maging: CT Chest Low Dose for Screening* (Ordered for 06/05/2025) Notes: Low-dose CT (LDCT) was recommended for lung cancer screening. The patient meets criteria including age 50-77, a smoking history of at least 20 pack-years, is currently smoking or has ceased smoking within the past 15 years, and has no signs or symptoms of lung cancer. Shared decision making performed with the patient. After LDCT has been completed, will review report and/or imaging and provide appropriate recommendations for the patient, including additional follow up if needed. Patient was counseled on smoking cessation/continued tobacco abstinence. LDCT due 06/2025. 6. L fariba term (current) use of inhaled steroids Notes: Patient was counseled to rinse & gargle with water after inhaled corticosteroid use. * Procedures: P FT: Data: 05/23/2024 -FEV1/FVC: 49%: -FEV1: 36% -FVC: 55% -DPB62-62%: 18% -Bronchodilator response: Positive -RV: 218% -T% -DLCO: 54% -Flow-volume loop: Severe obustruction 05/21/2022 -FEV1/FVC: 42%: -FEV1: 32% -FVC: 58% -JJO30-57%: 14% -Bronchodilator response: Positive -RV: 215% -T% -DLCO: 51% -Flow-volume loop: Severe obustruction 09/14/2018 -FEV1/FVC: 48% -FEV1: 40% -FVC: 63% -VYF27-24%: 17% -Bronchodilator response: Positive -RV: 187% -T% -DLCO: 64% -Flow-volume loop: Severe obustruction. ? * Procedure Codes: * Preventive Medicine: COVID Vaccination: H as patient had COVID Vaccination? COVID Vaccination N o Patient Refused Immunization Status: P neumovacc P t Refused. I nfluenza P t Refused. Screenings/Counseling: F ALL RISK SCREENING Fall Risk Assessment: N o falls in the past year Are you afraid of falling? N o T OBACCO ACTION PLAN Patient counselled on the dangers of tobacco use and urged to quit. 0 10/17/2024 Cessation counseling provided 0 10/17/2024 F KYUNG EXCLUSION Reason: P atient Reason refused/declined Type of Patient Reason: D rug declined by patient * Follow Up: 8 Months (Reason: COPD, LDCT review) * * Sign off status: Completed Visit Status: C HK (Check Out) true * Provider: Antonio Nuñez DO Date: 0 10/17/2024 Generated for Prabhakar Oswald/Raeitting on: 0 04/22/2025 03:28 PM EDT History and Physical Notes * HPI (History of Present Illness) Category Sub-Category Detail Notes Category Not es General Patient present s for a follow-up for COPD. Patient had his LDCT performed on 06/12/2024 at [facility]. Patient wears 1.5L O2 at home. DME: [facility]. Patient admits to smoking 6 cigarettes per day. Patient states his breathing is unchanged since his last visit. Patient had a Cholecystomy on 08/10/2024 at [facility]. Patient is using Dulera & Spiriva daily with benefit. Patient reports using Albuterol five times per day. Patient is under the care of [facility] Cardiology. Examination Category Sub-Category Detail Notes Category Not es Exam GENERAL APPEARANCE: Appears stated age Skin Normal Mouth [place] and moist. No c andidiasis Trachea Midline Chest Normal Respiratory Normal Movements, Ef fort Normal Auscultation Breath sounds are di minished but clear to auscultation without wheezes, crackles, or rhonchi Percussion Egophony Bronchophony Fremitus Whispered pectoriloquy Cardiac Regular rate and rhy thm Gastrointestinal Normal Vascular No edema Musculoskeletal Normal posture Neurological Focal, intact Psychiatric Alert and oriented x 3 Mentation/Cognition Normal Oropharynx/Tongue Mallampati Class II
--- OUTSIDE RECORDS SUMMARY | 2025-03-13 12:10 | XMS_ITS ---
Author Organization [facility] [place] Address [address] [place] [address] Care Team Providers Care Tube Bender Hand Name Role Phone Luiz Sue MD Primary Care Provider Cheri Nuñez, Shade Bautista [phone] REASON FOR VISIT Appointment Encounters Encounter Location Date Provider Diagnosis Pulmonary Medicine [place] [address] [place] [address] 03/13/2025 Shade Nuñez Plan Of Treatment Next Appt Details Provider Name:Radiology Prov ider, 06/05/2025 12:00:00 AM, [address], [address] [facility], [place], [address], Progress Notes * Mike METZGER HDOB:1960 (64 yo M)Acc No.[id number]:03/13/2025 Patient: Meliton Mike CALI :1960 A ge:64 Y S ex:Male Address:[address] [place] [address], [id number] * true * Date: Generated for Maximei krista/Famacg/eTransmitting on: 04/22/2025 03:28 PM EDT
[2025-04-22] VITALS (42 sets, daily range): BP systolic 107–133; BP diastolic 65–80; PULSE 84–114; O2SAT 85–98; BMI 23.4
--- NOTE | 2025-04-22 15:09 | ED_ITS ---
HPI HPI - General Adult General Chief complaint: Shortness of Breath/Dyspnea Stated complaint: SWOLLEN FEET AND ANKLES/ LUNGS BRINGING UP GREEN Time Seen by Provider: 04/22/25 15:09 History of Present Illness HPI narrative: The patient is a 64-year-old male with a history of COPD exacerbation, hypoxia, gastritis, duodenitis who presents to the emergency department for worsening shortness of breath, productive cough, and swelling in his bilateral lower extremities. The patient was just seen in our emergency department on April 20 for the same. He was diagnosed with acute bronchitis and discharged with azithromycin, prednisone, and Tessalon Perles. He already has an albuterol inhaler as well as a long-acting steroid inhaler. He is on as needed oxygen at home. They do not have a portable condenser. The significant other states that she does not think that it is working properly. Patient does still smoke but states he is only smoking 1 cigarette a day. Patient denies any history of intubation. No fever or chills. No sick contacts or recent travel. The patient's significant other states that he has some type of cardiac problem but does not know exactly what problem he has. He is unaware if he has congestive heart failure. He does not know his ejection fraction. He does know his ib[employer] websphere commerce consultant and recommends that I just call the office to get any information about him. The patient denies any sick contacts or recent travel. No fever or chills. He does state however he is getting profoundly weak as of today's past not better. He was taking the prednisone, azithromycin, and Tessalon Perles as directed. Related Data Home Medications ?Medication ?Instructions ?Recorded ?Confirmed albuterol sulfate 90 mcg/actuation 2 inh inhalation Q4 H PRN shortness 03/11/24 04/22/25 aerosol inhaler of breath or wheezing atorvastatin 40 mg tablet 40 mg PO DAILY 03/11/2404/05 metoprolol succinate 25 mg 12.5 mg PO DAILY 03/11/24 0 04/22/25 tablet,extended release 24 hr mometasone-formoterol HFA 200 2 inh inhalation Q12H 04/22/25 mcg-5 mcg/actuation aerosol inhaler (Dulera) sacubitril 24 mg-valsartan 26 mg 0.5 tab PO BID 04/22/25 tablet (Entresto) tiotropium bromide 2.5 2 inh inhalation Q24H 04/22/25 mcg/actuation mist for inhalation (Spiriva Respimat) aspirin 81 mg chewable tablet 81 mg PO DAILY 02/15/25 04/22/25 (Children's Aspirin) Previous Rx's ?Medication ?Instructions ?Recorded dextromethorphan-guaifenesin 10 10 ml PO Q6H cough #23 7 mL 04/22/25 mg-200 mg/5 mL oral liquid levofloxacin 750 mg tablet 750 mg PO DAILY 7 days #7 t abs 04/22/25 Allergies Allergy/AdvReac Type Severity Reaction Status Date / Time No Known Drug Allergies Allergy Verified 04/22/25 15:16 Opioid HPI Opioid Management Most Recent Opioid Data: Last Pain Scale 8 02/16/25, 00:36 Review of Systems ROS Narrative 10 Systems were reviewed, and unless not ed in the HPI, all other systems are reviewed, unremarkable, or noncontributory. [facility] PFS Medical History FH: cholecystectomy ?Z83.79 - Family history of other diseases of the digestive system (ICD-10) COPD (chronic obstructive pulmonary disease) ?J44.9 - Chronic obstructive pulmonary disease, unspecified (ICD-10) Surgical History H/O knee surgery ?Z98.890 - Other specified postprocedural states (ICD-10) Social History Little interest or pleasure in doing things: not at all Feeling down, depressed, or hopeless: not at all Exam Narrative Exam Narrative: Prior to examining the patient, I have washed with hospital approved and provided Antiseptic Hand Fence Repairman and have also applied gloves.? Prior to touching the patient, I asked for consent to examine the patient.? General: Alert and oriented, well nourished, mild distress. Eye: PERRL, EOMI, normal conjunctiva. HENT: Normocephalic, normal hearing, moist oral mucosa, no scleral icterus, no sinus tenderness. Neck: Supple, non-tender, no carotid bruits, no JVD, no lymphadenopathy. Lungs: Clear to auscultation and percussion, non-labored respiration. The patient has coarse breath sounds auscultated bilaterally with an expiratory wheezing in the apices Heart: Normal rate, regular rhythm, no murmur, gallop or edema. Abdomen: Soft, non-tender, non-distended, normal bowel sounds, no masses. Musculoskeletal: Normal range of motion and strength, no tenderness or swelling. Skin: Skin is warm, dry and pink, no rashes or lesions. +1 edema to the bilateral lower extremities to the ankle. Neurologic: Awake, alert, and oriented X3, CN II-XII intact. Psychiatric: Cooperative, appropriate mood and affect.? Following the conclusion of the examination, I have washed my hands thoroughly after removing examination gloves. Constitutional Vital Signs, click to edit/add: Last Vital Signs Pulse 87 04/22/25 19:00 Resp 31 H 04/22/25 19:00 BP 119/65 04/22/25 18:45 Pulse Ox 94 L 04/22/25 19:00 O2 Del Method Nasal Cannula 04/22/25 18:21 O2 Flow Rate 3 04/22/25 18:21 Course Course Hospital Course: The patient is a 64-year-old smoker who presents to the emergency department with shortness of breath and cough. He is in intolerable discomfort and is unable to sleep secondary to the intractable cough. Patient had a chest x-ray that was unremarkable for any acute cardiopulmonary process. CT of the chest was performed. No evidence of pulmonary embolism. No cardiomegaly, no peripheral vascularization, no pneumonia. However, the patient does have evidence of groundglass spots in the lungs which are considered inflammatory granulomatous tissue which was there previously. Therefore nothing new needs to be done upon this visit. Patient was made aware of these by me. Reevaluation(s) Reevaluation #1: Patient received a DuoNeb treatment, methylprednisolone and magnesium. Patient declared that he had some improvement. Patient was also on oxygen the entire time. Patient feels like he wants to go home after the administration of these medications. He was offered hospital admission. Vital Signs Vital signs: Vital Signs Pulse Rate 98 H 04/22/25 15:16 Respiratory Rate 32 H 04/22/25 15:16 Blood Pressure 123/65 04/22/25 15:16 Pulse Oximetry 85 L 04/22/25 15:16 Oxygen Delivery Method Room Air 04/22/25 15:16 Pulse Rate 87 04/22/25 19:00 Respiratory Rate 31 H 04/22/25 19:00 Blood Pressure 119/65 04/22/25 18:45 Pulse Oximetry 94 L 04/22/25 19:00 Oxygen Delivery Method Nasal Cannula 04/22/25 18:21 Oxygen Delivery Flow Rate 3 04/22/25 18:21 Medical Decision Making MDM Narrative Medical decision making narrative: In summary the patient is a 64-year-old smoker who presents with shortness of breath. Patient has been coughing with a productive phlegm. Denies any fever or chills. No known sick contacts or recent travel. Differential Diagnosis Differential Diagnosis: Congestive heart failure, peripheral edema, pulmonary embolism, pneumonia, Medical Records Medical records reviewed: Yes I reviewed the patient's medical records Medical records narrative: I specifically looked at the patient's last visit. His white blood cell count has elevated from his previous visit however the patient is on steroids so this is an expected side effect Lab Data Lab results reviewed: Yes I reviewed the patient's lab results Labs: Lab Results 04/22/25 04/22/25 Range/Units 15:46 18:45 WBC 14.8 H (4.0-11.0) 10^3/uL RBC 4.15 L (4.70-6.10) 10^6/uL Hgb 13.2 L (14.0-18.0) g/dL Hct 37.2 L (42.0-54.0) % MCV 89.6 (80.0-94.0) fL MCH 31.8 (25.9-34.0) pg MCHC 35.5 H (29.9-35.2) g/dL RDW 12.7 (11.0-15.0) % Plt Count 297 (150-450) 10^3/uL MPV 9.4 L (9.5-13.5) fL Seg Neuts % (Manual) 86.0 H (43.0-75.0) Lymphocytes % (Manual) 5.0 L (20.5-60.0) % Monocytes % (Manual) 9.0 (1.7-12.0) % Eosinophils % (Manual) 0.0 L (0.9-7.0) % Basophils % (Manual) 0.0 L (0.2-2.0) % Neutrophils # (Manual) 12.72 H (1.4-6.5) 10^3/uL Lymphocytes # (Manual) 0.74 L (1.20-3.80) 10^3/uL Monocytes # (Manual) 1.33 H (0.30-0.80) 10^3/uL Eosinophils # (Manual) 0.00 (0.00-0.70) 10^3/uL Basophils # (Manual) 0.00 (0.00-0.10) 10^3/uL Sodium 133 L (136-145) mmol/L Potassium 3.4 L (3.5-5.1) mmol/L Chloride 93 L (98-107) mmol/L Carbon Dioxide 38.8 H (21.0-32.0) mmol/L Anion Gap 4.6 BUN 8.0 (7.0-18.0) mg/dL Creatinine 0.78 (0.70-1.30) mg/dL Est GFR ( Amer) >60 (>=60 mL/min/1.73m^2) Est GFR (Non-Af Amer) >60 (>=60 mL/min/1.73m^2) BUN/Creatinine Ratio 10.3 Glucose 130 H (74-106) mg/dL Calcium 8.6 (8.5-10.1) mg/dL Total Bilirubin 0.8 (0.2-1.0) mg/dL AST 24 (15-37) U/L ALT 33 (16-63) U/L Alkaline Phosphatase 94 (46-116) U/L Troponin I High Sens 9.2 8.2 (4.0-76.1) pg/mL NT-Pro-B Natriuret Pep 414.0 (<=900.0) pg/mL Total Protein 6.7 (6.4-8.2) g/dL Albumin 3.0 L (3.4-5.0) g/dL Globulin 3.7 g/dL Albumin/Globulin Ratio 0.8 Imaging Data Chest x-ray: Radiologist's impression: ITS Impressions Chest CTA 04/22/25 15:19 IMPRESSION: No acute pulmonary embolus. Redemonstration of small distribution of small groundglass nodules. May represent infectious or inflammatory etiology, possibly chronic. No developing consolidation. No pulmonary edema. Impression dictated by: Milton Díaz M.D. 04/22/2025 4:37 PM Dictation [facility] Electronically authenticated by: [id number] Y Date: 04/22/2025 16:37 Chest X-Ray 04/22/25 15:19 IMPRESSION: No acute process. Impression dictated by: Milton Díaz M.D. 04/22/2025 4:39 PM Dictation Location: [facility] Electronically authenticated by: [id number] Y Date: 04/22/2025 16:39 ECG Data Attestation: I personally reviewed and interpreted this ECG as follows: Interpretation: Twelve-lead EKG reveals a sinus rhythm with a ventricular of 94 bpm. The [place] interval is normal. QRS duration is normal. QTc is not prolonged. The patient has poor R wave progression in the septal leads. There is baseline wandering. The patient has evidence of a premature atrial complex. Patient also has evidence of 3 premature ventricular complexes. No evidence of ST segment elevation. There is ST segment depression in V6 only. Summary: Abnormal EKG. Smoking Cessation Patient Acknowledges Need for Cessation: No Additional Comments: Patient states he is only smoked 1 yesterday and 1 today. Discharge Plan Discharge Chief Complaint: Shortness of Breath/Dyspnea Clinical Impression: Hypoxia, Asthma exacerbation in COPD Patient Disposition: Home, Self-Care Time of Disposition Decision: 18:41 Condition: Good Mode of Transportation: Private Vehicle Prescriptions / Home Meds: New levofloxacin 750 mg tablet 750 mg PO DAILY 7 Days Qty: 7 0RF dextromethorphan-guaifenesin 10-200 mg/5 mL liquid 10 ml PO Q6H Qty: 237 0RF No Action albuterol sulfate 90 mcg/actuation HFA aerosol inhaler 2 inh INHALATION Q4H PRN (Reason: shortness of breath or wheezing) atorvastatin 40 mg tablet 40 mg PO DAILY metoprolol succinate 25 mg tablet extended release 24 hr 12.5 mg PO DAILY Dulera 200-5 mcg/actuation HFA aerosol inhaler 2 inh INHALATION Q12H sacubitril-valsartan [Entresto] 24-26 mg tablet 0.5 tab PO BID Spiriva Respimat 2.5 mcg/actuation mist 2 inh INHALATION Q24H aspirin [Children's Aspirin] 81 mg tablet,chewable 81 mg PO DAILY Print Language: Filipino Instructions: COPD (Chronic Obstructive Pulmonary Disease) (ED), Hypoxia (ED) Additional Instructions: Thank you for trusting me with your care today. Please stop your benzonate/Tessalon Perles for your cough and please also stop your azithromycin. I really want you to continue to use your prednisone. This is extremely important. I also want you to use 2 sprays of your blue albuterol inhaler every 4 hours. Referrals: JAILYN CARNES [Primary Care Provider, REMELT PAN TANK OPERATOR] - 1 week
--- NOTE | 2025-04-22 15:19 | CT_ITS ---
[address] [address] Patient Name: ZENA METZGER MRN: [id number] date: 1960 Sex: M Assigned Patient Location: ER Current Patient Location: ED.MAIN Accession/Order Number: [id number] Exam Date: 04/22/2025 16:29 Report Date: 04/22/2025 16:37 At the request of: HUBER JAQUEZ DO Procedure: CT angio chest CTA Chest with PE protocol TECHNIQUE: Axial imaging with 2-D and 3-D reconstruction. 100 cc of Omni 350. Administered The CT exam was performed using one or more the following dose reduction techniques: Automated exposure control, adjustment of the MA and/or Kv according to patient size, or use of the iterative reconstruction technique. History: Cough and shortness of breath. Swollen ankles. Worsening. COMPARISON: 06/21/2023 THYROID: Unremarkable TRACHEA AND BRONCHI: Patent ESOPHAGUS: Unremarkable. HEART: Within normal limits PERICARDIAL EFFUSION: Small CORONARY ARTERY CALCIFICATION: Present MEDIASTINUM: No adenopathy. No pneumoperitoneum. No mediastinal hematoma. PULMONARY KM: No hilar mass or adenopathy is seen. THORACIC AORTA Unremarkable PULMONARY EMBOLUS: None LUNG NODULE regions of groundglass nodularity redemonstrated. LUNGS: Lungs are clear PLEURAL EFFUSION: None PNEUMOTHORAX: No pneumothorax seen. CHEST WALL: No abnormality AXILLA: Unremarkable BONY STRUCTURES Intact UPPER ABDOMEN: Images of the upper abdomen are noncontributory. CT/CT angio chest IMPRESSION: No acute pulmonary embolus. Redemonstration of small distribution of small groundglass nodules. May represent infectious or inflammatory etiology, possibly chronic. No developing consolidation. No pulmonary edema. Impression dictated by: Milton Díaz M.D. 04/22/2025 4:37 PM Dictation Location[facility] Electron[facility] authenticated by: [id number] Y Date: 04/22/2025 16:37
--- NOTE | 2025-04-22 15:19 | XR_ITS ---
[address] [address] Patient Name: ZENA METZGER MRN: [id number] date: 1960 Sex: M Assigned Patient Location: ER Current Patient Location: ED.MAIN Accession/Order Number: [id number] Exam Date: 04/22/2025 16:38 Report Date: 04/22/2025 16:39 At the request of: HUBER JAQUEZ DO Procedure: XR chest 1V Plain film chest Single view HISTORY: Cough and shortness of breath for one week. Worsening. COMPARISON: 04/20/2025 FINDINGS: SUPPORT DEVICES: None POSTSURGICAL CHANGES: None HEART: Within normal limits PULMONARY KM: Within normal limits MEDIASTINUM: Unremarkable LUNGS AND PLEURA: No acute lung process, pleural effusion or pneumothorax identified. BONY STRUCTURES: Intact ADDITIONAL FINDINGS None XR/XR chest 1V IMPRESSION: No acute process. Impression dictated by: Milton Díaz M.D. 04/22/2025 4:39 PM Dictation Location: Written Electronically authenticated by: [id number] Y Date: 04/22/2025 16:39
--- NOTE | 2025-04-22 15:19 | ECG_ITS ---
The [facility] Test Date: 2025-04-22 Pat Name: ZENA METZGER Department: Room: - Gender: Male Change Management Analyst: : 1960 Requested By: [id number] Order Number: [id number] Reading MD: CARLEEN HECTOR M.D. Measurements Intervals [place] Rate: 94 P: 72 RI: 166 QRS: 92 QRSD: 102 T: 73 QT: 332 QTc: 383 Interpretive Statements 1100 Sinus rhythm 1574 with frequent ventricular premature complexes 7102 Moderate right axis deviation 9140 abnormal rhythm ECG Compared to ECG 04/20/2025 13:28:10 Right-axis deviation now present Sinus tachycardia no longer present Electronically Signed On 04-22-2025 17:50:28 EDT by CARLEEN HECTOR M.D.
--- OUTSIDE RECORDS SUMMARY | 2025-04-22 15:29 | XMS_ITS | Clinical Summary ---
Author Organization [facility] Address [address] [place] [address] Care Team Providers Care Living Skills Advisor Name Role Phone Unavailable Primary Care Provider [...] 2010 Shingrix Vaccine (1 of 2) 2010 Influenza Vaccine (#1) 2025 RSV Vaccine (1 - 1-dose 75+ series) 11/08/2035 Insurance MMO [employer] PPO
--- OUTSIDE RECORDS SUMMARY | 2025-04-22 15:29 | XMS_ITS | Clinical Summary ---
Author Organization [facility] Address [address] [place] [address] Care Team Providers Care Tv Production Assistant Name Role Phone Lexie Douglas HARVEST CONTRACTOR-C Primary Care Provider [phone] Allergies No known active allergies Medications albuterol [...] 40 mg tabletIndicatio ns:Coronary artery disease involving pala coronary artery of pala heart without angina pectoris Take 1 tablet [...] recovered EF Coronary artery disease invo lving pala coronary artery of pala heart without angina pectoris 10/25/2022 Encounters Date Type Department Care Team Description 03/05/2025 Telephone [facility] [address] [place] [address] Julieta Boyd MA 01/21/2025 Refill [facility] [address] [place] [address] Bhavna Watkins MA from Last 3 Months Family History Medical [...] Vaccines (1 of 2) 2010 COVID-19 Vaccine (1 - 2023-2 5 season) 2024 Influenza Vaccine (#1) 2025 Depression Screening 06/26/2025 06/26/2024 HIB Vaccines [...] 1:09 PM 08/10/2024 8:08 PM Care Teams Tv Production Assistant Relationship Specialty Start Date End Date Lexie Douglas FNP-C [address] [place] [address] PCP - General Nurse Practitioner 06/26/24
--- OUTSIDE RECORDS SUMMARY | 2025-04-22 15:29 | XMS_ITS | Clinical Summary ---
Author Organization [facility] Address [address] [place] [address] Care Team Providers Care Filer Helper Name Role Phone Mel Bansal MD Primary Care Provider [phone] Allergies No known active allergies Medications aspirin 81 MG EC tablet Take 81 mg by mouth in the morning. Active sacubitril-vals loretta (Entresto) 24-26 MG tablet Take 0.5 tablets by mouth in the morning and 0.5 tablets in the evening. 5 12/01/19 26 Active metoprolol succinate XL (Toprol-XL) 25 MG 24 hr tablet TAKE 1/2 TABLET BY MOUTH ONCE EVERYDAY Active atorvastatin (Lipitor) 40 MG tablet Take 40 mg by mouth in the morning. 4 12/01/19 26 Active Dulera 200-5 MCG/ACT inhaler INHALE 2 PUFFS BY MOUTH TWICE DAILY. RINSE AFTER USE Active Spiriva Respimat 2.5 MCG/ACT inhaler 2 puffs Daily Active albuterol HFA 90 mcg/act inhaler INHALE 2 PUFFS BY MOUTH EVERY 4 HOURS NEEDED FOR SHORTNESS OF BREATH Active oxygen (O2) gas Inhale 1.5 L/min at bedtime Active Active Problems Problem Noted Date Diagnosed Date Thrombosed external hemorrhoid 03/04/2025 Encounters Date Type Department Care Team Description 03/11/2025 2:15 PM EDT Office Visit [facility] [address] [facility] [address] [place] [id number] Travis Castillo DO Thrombosed external hemorrhoid (Primary Dx) 03/11/2025 Travel 03/06/2025 Travel 03/04/2025 3:30 PM EDT Consult [facility] [address] [address] Travis Castillo DO Thrombosed external hemorrhoid 03/04/2025 Travel from Last 3 Months Family History Medical History Relation Name Comments Cancer Mother COPD Sister 1 Lung cancer Sister 1 Breast cancer Neg Hx Colon cancer Neg Hx Ovarian cancer Neg Hx Pancreatic cancer Neg Hx Relation Name Status Comments Brother Alive 3 brothers Father Mother Sister 1 2- sisters Sister 2 Alive Social History Tobacco Use Types Packs/Day Years Used Date Smoking Tobacco: Every Day Cigarettes Smokeless Tobacco: Never Tobacco Cessation:Ready to Q uit: No; Counseling Given: Not Answered Alcohol Use Standard Drinks/Week Comments Not Currently 0 (1 standard drink = 0.6 oz pur e alcohol) Sex and Gender Information Value Date Recorded Sex Assigned at Not on file Legal Sex Male 7:11 PM EDT Gender Identity Not on file Sexual Orientation Not on file Last Filed Vital Signs Vital Sign Reading Time Taken Comments Blood Pressure 88/64 03/04/2025 3:44 PM EDT Pulse - - Temperature - - Respiratory Rate - - Oxygen Saturation - - Inhaled Oxygen Concentration - - Weight 72.1 kg (159 lb) 03/11/2025 2:26 PM EDT Height 180.3 cm (5' 11 ) 03/11/2025 2:26 PM EDT Body Mass Index 22.18 03/11/2025 2:26 PM EDT Plan of Treatment Not on file Insurance [employer] Care Teams Filer Helper Relationship Specialty Start Date End Date Mel Bansal MD [address] [place] [address] PCP - General Family Medicine 03/04/25
--- OUTSIDE RECORDS SUMMARY | 2025-04-22 15:29 | XMS_ITS | Encounter Summary ---
Author Organization [facility] Address [address] [place] [address] Care Team Providers Care Hospital Nursing Assistant Name Role Phone Misael Lexie CYLINDER INSPECTOR AND TESTER-C Primary Care Provider [phone] Reason for Visit * Reason Comments Med Refill Encounter Details Date Type Department Care Team (Late st Contact Info) Description 03/06/2023 Refill [facility] Cardiology [address] [place] [id number] Saniya Askew, MEDICAL OR SURGICAL INSTRUMENT MAKER [address] [place] [address] Acute on chronic systolic (congestive) [...] (CMS/HCC) documented in this encounter Care Teams Hospital Nursing Assistant Relationship Specialty Start Date End Date Lexie Douglas FNP-C [address] [place] [address] PCP - General Nurse Practitioner 06/26/24 documented as of this encounter
--- OUTSIDE RECORDS SUMMARY | 2025-04-22 15:29 | XMS_ITS | Encounter Summary ---
Author Organization [facility] Address [address] [place] [address] Phone Care Team Providers Care Manufacturing Quality Manager Name Role Phone Mel Bansal MD Primary Care Provider [phone] Encounter Details Date Type Department Care Team (Late st Contact Info) Description 04/27/2022 Orders Only [facility] [address] [place] [address] Conversion, Onbase Social History Tobacco Use Types Packs/Day Years Used Date Smoking Tobacco: Never Assessed Sex and Gender Information Value Date Recorded Sex Assigned at Not on file Legal Sex Male 2:48 PM EST Gender Identity Not on file Sexual Orientation Not on file documented as of this encounter Plan of Treatment Scheduled Orders Name Type Priority Associated Diagnoses Orde r Schedule OUTSIDE LAB SCAN Lab Ordered: 04/27/2022 documented as of this encounter Visit Diagnoses Not on filedocumented in this encounter Care Teams Manufacturing Quality Manager Relationship Specialty Start Date End Date Mel Bansal MD [address] [place] [address] PCP - General 05/13/22 documented as of this encounter
--- OUTSIDE RECORDS SUMMARY | 2025-04-22 15:29 | XMS_ITS | Patient Health Record ---
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 Role Phone Luiz Sue MD Primary Care Provider Tyshawn De Anda Unavailable [phone] Allergies No Known Allergies Results Component Value Reference Range Notes HEMOGLOBIN Reviewed date:05/29/2024 07:58:05 AM Interpretation: Performing Lab: Notes/Report: [facility] , Hemoglobin 15.0 14.0-18.0 g/dL Performing Lab: see note ML - The [facility] LB CT lung screening low-dose Reviewed date:06/13/2024 10:05:09 AM Interpretation: Performing Lab: Notes/Report: Source Facility: [facility]-[address] [place] [address] [place] [address] CT Scan Report Signed Patient: ZENA METZGER MR#: [id number] : 1960 Acct:[id number] Age/Sex: 63 / M ADM Date: 06/12/24 Loc: CT Attending Dr: Tyshawn Salmon D.O. Ordering Physician: Tyshawn Salmon D.O. Date of Service: 06/12/24 Procedure(s): CT lung screening low-dose Accession Number(s): [id number] cc: Physician,Non-Staff [place] [address] Patient Name: ZENA METZGER MRN: [id number] date: 1960 Sex: M Assigned Patient Location: CT Current Patient Location: Accession/Order Number: [id number] Exam Date: 06/12/2024 14:39 Report Date: 06/13/2024 [...] Duque M.D. Signed By: 06/13/24 0456 DD/ 045 TD/TT: Director Advanced: [place] [address] CT Scan Report Signed Patient: GORDY METZGER MR#: [id number] : 1960 Acct:[id number] Age/Sex: 63 / M ADM Date: 06/12/24 Loc: CT Attending Dr: Tyshawn Salmon D.O. Ordering Physician: Tyshawn Salmon D.O. Date of Service: 06/12/24 Procedure(s): CT yolanda g screening low-dose Accession Number(s): [id number] cc: Johnny Seaman M.D. [place] [id number] Patient Name: ZENA METZGER MRN: [id number] date: 1960 Sex: M Assigned Patient Location: CT Current Patient Location: Accession/Order Numb er: [id number] Exam Date: 14:39 Report Date: 06/13/2024 04:53 [...] Dictated By: Austyn Duque M.D. Signed By: 06/13/24455 DD/ 2 TD/TT: Director Advanced: CT Chest Low Dose for Screen ing* Reviewed date:06/13/2024 06:44:36 AM Interpretation: Performing Lab: Notes/Report: RT pulmonary function test Reviewed date:05/30/2024 07:00:28 AM Interpretation: Performing Lab: Notes/Report: Source Facility: [place] [address] [place] [address] Respiratory Report Signed Patient: ZENA METZGER MR#: [id number] : 1960 Acct:[id number] Age/Sex: 63 / M ADM Date: 05/23/24 Loc: CARD Attending Dr: Tyshawn Salmon D.O. Ordering Physician: Tyshawn Salmon D.O. 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 Ordering Physician: Tyshawn Salmon D.O. Date of Service: 05/23/24 Procedure(s): RT pulmonary function test Accession Number(s): [id number] cc: [facility] Test Date: 2024-05-23 Pat Name: ZENA SUAREZ Department: 12 Room: - Gender: Male Technic kit: Mando Delacruz RRT : 1960 Requ ested By: Tyshawn Salmon Order Number: [id number] Reading MD: Tyshawn Salmon Interpretive Statements Pulmonary [...] By: Antonio Salmon D.O. Signed By: 05/29/24 1267 DD/ 1317 TD/TT: Director Advanced: Reason For Referral No Information Medications Medication [...] W/U Status Risk Notes Problem Centrilobular emphysema (05024553) Centrilobular emphysema (J43.2) Active confirmed Dulera + Spiriva > Symbicort + Spiriva > Trelegy Problem Chronic respiratory failure (00434523) Chronic respiratory failure with hypoxia (J96.11) Active confirmed Problem Long-term current use of inhaled steroid (395890127) retirement (current) use of inhaled steroids (Z79.51) Active confirmed Problem Coronary artery disease (51212512) Coronary artery disease (I25.10) Active confirmed Problem Allergic rhinitis (87048196) Allergic rhinitis (J30.9) Active confirmed Problem Chronic systolic heart failure (458065729) Chronic systolic congestive heart failure (I50.22) Active confirmed Problem 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) Cigarette nicotine dependence with nicotine-induced disorder (F17.219) Active confirmed 2ppd x 44 years minimum Problem Multiple pulmonary nodules (271343593) Multiple pulmonary nodules (R91.8) Active confirmed Vital Signs Heart Rate 101 /min 10/17/2024 Temperature 96.9 degrees Fahrenheit 10/17/2024 Respiratory Rate 18 /min 10/17/2024 Blood pressure diastolic 56 mm Hg 10/17/2024 Oximetry 93 % 10/17/2024 Height 70 in 10/17/2024 Blood pressure systolic 113 mm Hg 10/17/2024 Weight 167.0 lbs 10/17/2024 BMI 23.96 kg/m2 10/17/2024 Procedures Procedure Date Ordered Date Performed Result Body Sit e PFT (03481, 18763, 72091) 05/14/2024 05/23/2024 N/A Encounters Encounter Location Date Provider Diagnosis Pulmonary Medicine [address] [address] 06/05/2024 [facility] Encounter for preprocedural respiratory examination Z01.811 ; Centrilobular emphysema J43.2 ; Chronic respiratory failure with hypoxia J96.11 ; Multiple pulmonary nodules R91.8 and Cigarette nicotine dependence with nicotine-induced disorder F17.219 [facility] Medicine [address] [address] 10/17/2024 [facility] Multiple pulmonary nodules R91.8 ; Centrilobular emphysema J43.2 ; Chronic respiratory failure with hypoxia J96.11 ; Cigarette nicotine dependence with nicotine-induced disorder F17.219 ; Encounter for screening for malignant neoplasm of respiratory organs Z12.2 and 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 Z79.51 Pulmonary Medicine [address] [address] 05/14/2024 [facility] Cholelithiasis K80.2 0 and Centrilobular emphysema J43.[address] [address] 05/30/2024 [facility] Pulmonary [facility] [address] [place] [address] 06/13/2024 [facility] Pulmonary [facility] [address] [place] [address] 08/20/2024 [facility] Pulmonary [address] [address] 09/24/2024 [facility] Pulmonary [facility] [address] [place] [address] 03/13/2025 [facility] Assessments Encounter Date Diagnosis (ICD Code) Assessment Notes Treatment Notes Treatment Clinical Notes Section Notes 06/05/2024 Encounter for preprocedural respiratory examination (ICD-10 [...] respiratory failure with hypoxia (ICD-10 - J96.11) Aysp-sb-ayml encounter performed with the patient to document [...] respiratory failure with hypoxia (ICD-10 - J96.11) Jyct-zt-kjgj encounter performed with the patient to document [...] of requiring O2.-Recommendations: Continue O2 @ HS. 06/05/2024 Multiple pulmonary nodules (ICD-10 - R91.8) [...] smoke at 1/4 pack a day. 10/17/2024 retirement (current) use of inhaled steroids (ICD-10 - Z79.51) Patient was counseled to rinse & gargle with water after inhaled corticosteroid use. Plan Of Treatment Next Appt Details Provider Name:Radiology Leo gary, 06/05/2025 12:00:00 AM, [address], [place], [address], Insurance Providers Payer Name Payer Address Payer Phone Subscriber Number Group Number Insured Name Patient Relationship to Insured Coverage Start Date Coverage End Date [employer] [place] [employer] [address] [place] [address] [id number] Zena Metzger Self - patient is the insured 3 Medical (General) History Medical History History ICD Code Centrilobular emphysema J43.2 Multiple pulmonary nodules R91.8 Chronic respiratory failure with hypoxia J96.11 Allergic rhinitis J30.9 Coronary artery disease I25.10 Chronic systolic congestive heart failur e I50.22 Hypothyroidism E03.9 Cigarette nicotine dependence with nicot ine-induced disorder F17.219 retirement (current) use of inhaled stero ids Z79.51 Surgical History Surgery Date(Month/Year) cyst removal right knee arthroscopy Lung Biopsy 06/29/2022 Cardiac Catheterization 12/21/2021 cholecystectomy 08/10/2024
--- OUTSIDE RECORDS SUMMARY | 2025-04-22 15:29 | XMS_ITS | Encounter Summary ---
Author Organization [facility] Address [address] [place] [address] Care Team Providers Care Manager Office Services Name Role Phone Ruddy Peres MD Primary Care Provider Pcp, No Primary Care Provider Unavailabl e Source Comments In the event this information is protected by the Federal Confidentiality of Alcohol and Drug AbusePatient Records regulations: The Federal rules restrict any use of the information to criminally investigate or prosecute any alcohol or drug abuse patient.[facility] Encounter Details Date Type Department Care Team [...] on filedocumented in this encounter Care Teams Manager Office Services Relationship Specialty Start Date End Date Ruddy Peres MD [address] [place] [address] PCP - General 10/25/02 03/19/22 Pcp, Kerry PCP - General 03/20/22 10/05/22 documented as of this encounter
--- OUTSIDE RECORDS SUMMARY | 2025-04-22 15:29 | XMS_ITS | Clinical Summary ---
Author Organization [facility] Address [address] 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 Name Role Phone Mel Bansal MD Primary Care Provider [phone] Allergies No known active allergies Medications tiotropium [...] 11/08/1979 DTaP/Tdap/Td Vaccines (1 - Tdap) 1982 PSA Prostate Cancer Screening 2010 Zoster Vaccines (1 of 2) 2010 RSV High Risk: (Elderly (60+ ) or Population) (1 - Risk 60-74 years 1-dose series) 2020 COVID-19 Vaccine (1 - 2023-2 5 season) 2024 Influenza Vaccine (#1) 2025 Diabetes Screening 08/10/2025 08/10/2024 HIB Vaccines [...] patient's age to complete this topic [facility] Care Teams Roving Or Yarn Color Checker Relationship Specialty Start Date End Date Mel Bansal MD [address] [facility] [place] [address] PCP - General 05/13/22
[2025-04-22 15:52] LABS: Hematocrit 37.2 % (42.0-54.0); Hemoglobin 13.2 g/dL (14.0-18.0); Mean Corpuscular HGB Conc 35.5 g/dL (29.9-35.2); Mean Corpuscular Hemoglobin 31.8 pg (25.9-34.0); Mean Corpuscular Volume 89.6 fL (80.0-94.0); Platelet Count 297 10^3/uL (150-450); Red Blood Count 4.15 10^6/uL (4.70-6.10); White Blood Count 14.8 10^3/uL (4.0-11.0)
[2025-04-22 16:15] LABS: Alanine Aminotransferase 33 U/L (16-63); Albumin Globulin Ratio 0.8; Albumin Level 3.0 g/dL (3.4-5.0); Alkaline Phosphatase 94 U/L (46-116); Anion Gap 4.6; Aspartate Amino Transferase 24 U/L (15-37); Blood Urea Nitrogen 8.0 mg/dL (7.0-18.0); Calcium 8.6 mg/dL (8.5-10.1); Carbon Dioxide 38.8 mmol/L (21.0-32.0); Chloride 93 mmol/L (98-107); Estimated GFR (African America >60 (>=60 mL/min/1.73m^2); Estimated GFR (Non-African Ame >60 (>=60 mL/min/1.73m^2); Globulin 3.7 g/dL; Glucose 130 mg/dL (74-106); NT Pro B Type Natriuretic Pept 414.0 pg/mL (<=900.0); Potassium 3.4 mmol/L (3.5-5.1); Sodium 133 mmol/L (136-145); Total Protein 6.7 g/dL (6.4-8.2)
[2025-04-22 16:29] LABS: Basophils Abs Manual 0.00 10^3/uL (0.00-0.10); Basophils Percent Manual 0.0 % (0.2-2.0); Eosinophils Absolute Manual 0.00 10^3/uL (0.00-0.70); Eosinophils Percent Manual 0.0 % (0.9-7.0); Lymphocytes Absolute Manual 0.74 10^3/uL (1.20-3.80); Lymphocytes Percent Manual 5.0 % (20.5-60.0); Monocytes Absolute Manual 1.33 10^3/uL (0.30-0.80); Monocytes Percent Manual 9.0 % (1.7-12.0); Segmented Neut Absolute Manual 12.72 10^3/uL (1.4-6.5); Segmented Neutrophils % Manual 86.0 (43.0-75.0)
--- OUTSIDE RECORDS SUMMARY | 2025-04-22 17:12 | XMS_ITS | CCD ---
Author Organization [facility] Care Team Providers Care Trim Die Maker Name Role Phone DIPESH, SANIYA M Admitting [...] Calero Admitting Unavailable URIOSTEGUI, TAMIE Consulting Unavailable NIMSIHA, DR ELOY Calero Primary Care Unavailable SAMSA, [...] able Eloy Bansal MD Primary Care Provider Jailyn Douglas Primary Care Physician [phone] CELSO IBARRA Attending Unavailable ELOY BANSAL Primary Care Unavailable CELSO IBARRA Attending Unavailable ELOY BANSAL Primary Care Unavailable Deyvi, SENIOR TECHNICAL SUPPORT ENGINEER Jailyn L Referring Unavailable NILLBenji Attending Unavailable Deyvi, SENIOR TECHNICAL SUPPORT ENGINEER Jailyn L Attending Unavailable Deyvi, SENIOR TECHNICAL SUPPORT ENGINEER Jailyn Seymour Attending Unavailable Deyvi, SENIOR TECHNICAL SUPPORT ENGINEER Jailyn Seymour Attending Unavailable Deyvi, SENIOR TECHNICAL SUPPORT ENGINEER Jailyn Seymour Attending Unavailable Eloy Bansal MD Primary Care Provider CARRI MCKEON Attending Unavailable DEYVIFARTUNDI Referring Unavailable [...] Medication Allergies] Propensity to adverse reactions (disorder) [facility] Repository Medications Current Medications Medication Drug Class(es) Dates Sig (Normalized) Sig (Original) [id number] 200 actuat albuterol 0.09 mg/actuat metered dose [...] Refills(s) 1, Pharmacy: [facility]/pharmacy #[id number], 176, cm, 04/19/24 13:00:00 EDT, Height/Length [...] [Coronary atherosclerosis of unspecified type of vessel, [place] or graft] Onset: 10-25-2022 07-10-2023 Chronic Disorders [...] Other fci (current) drug therapy; Translations: [[employer] CURRENT DRUG THERAPY] Onset: 10-14-2021 Episodic Other [...] 03-13-2025 36 Pt informed Normal [facility] Ambulatory Visit Summaryon 0 02-26-2025 Ambulatory Visit [...] Someone Will Contact You Regarding These Appointments [facility] External Ambulatory Referral, Patient choice/referral by family/friend, Surgery, [facility] Surgery-thrombosed hemorrhoid, 02/26/25 13:35:00 EDT, Thrombosed external [...] signed up for this yet, please contact [employer] at [phone] to get signed up today. Language Information Language assistance services are available as needed. Virgil Chan [facility] Family Medicine Office/Clini c Noteon 02-26-2025 Family [...] will send referral to general surgery at [facility] for further evaluation. will send in cream to shrink hemorrhoid and to help with pain. all questions answered. RTC as needed Ordered: mineral oil/petrolatum/phenyle phrine topical, 1 chloé, Rectal, BID, 28 gm, Refill(s) 0, clean affected area before application[id number], cm, 02/26/25 13:26:00 EDT, Height/Length Dosing, 72, kg, 02/26/25 13:26:00 EDT, Weight Dosing nitroglycerin, 1 chloé, Rectal, q12hr, 30 gm, Refill(s) 0, wash hands immediately after application, [id number], cm, 02/26/25 13:26:00 EDT, Height/Length Dosing, 72, kg, 02/26/25 13:26:00 EDT, Weight Dosing [facility] External Ambulatory Referral 2. BMI 23.0-23.9, adult [...] Family History Family history is negative Normal [facility] Comment on above: Result Comment: Elec [...] day(s), # 7 tab(s), Refills(s) 0, Pharmacy: [facility]/pharmacy #[id number], 176, cm, 01/30/25 14:03:00 EDT, Height/Length Dosing, 74.8, kg, 01/30/25 14:03:00 EDT, Weight Dosing 2. COPD (chronic obstructive pulmonary disease) (J44.9: Chronic obstructive pulmonary disease, unspecified) kenalog given in office Ordered: levofloxacin, 750 mg = 1 tab(s), Oral, Daily, X 7 day(s), # 7 tab(s), Refills(s) 0, Pharmacy: [facility]/pharmacy #[id number], 176, cm, 01/30/25 14:03:00 EDT, Height/Length Dosing, 74.8, kg, 01/30/25 14:03:00 EDT, Weight Dosing 3. BMI 24.0-24.9, adult (Z68.24: Body mass index [BMI] 24.0-24.9, adult) BMI education Ordered: levofloxacin, 750 mg = 1 tab(s), Oral, Daily, X 7 day(s), # 7 tab(s), Refills(s) 0, Pharmacy: [facility]/pharmacy #[id number], 176, cm, 01/30/25 14:03:00 EDT, Height/Length Dosing, 74.8, kg, 01/30/25 14:03:00 EDT, Weight Dosing 4. Non-smoker (Z78.9: Other specified health status) continue not smoking Ordered: levofloxacin, 750 mg = 1 tab(s), Oral, Daily, X 7 day(s), # 7 tab(s), Refills(s) 0, Pharmacy: [facility]/pharmacy #[id number], 176, cm, 01/30/25 14:03:00 EDT, Height/Length Dosing, 74.8, kg, 01/30/25 14:03:00 EDT, Weight Dosing Orders: pantoprazole, See Instructions, TAKE 1 TABLET BY MOUTH EVERY DAY, # 90 tab(s), Refills(s) 1, Pharmacy: [id number], 176, cm, 05/17/24 14:44:00 EDT, Height/Length Dosing, [...] Family History Family history is negative Normal [facility] Comment on above: Result Comment: Elec [...] 1 year. Patient informed. Normal [facility] Office Visiton 11-30-2024 Follow-up visit [id number] Mike Lopez 1960 M Date Provider Department Center 11/30/2024 CARLEEN TINSLEY [facility] Family History Problem Relation Age of Onset Cancer Mother Family Status - Relation Status Age at Mother Level of Service:59095 [place] OFFICE/OUTPATIENT ESTABLISHED MOD MDM 30 MIN Normal [facility] Office Visiton 08-22-2024 Follow-up visit [id number] Mike Lopez 1960 M Date Provider Department Center 08/22/2024 454-DENICE MORENO [facility] SURG [place] Family History Problem Relation Age of Onset Cancer Mother Family Status - Relation Status Age at Mother Level of Service:78218 [place] POSTOP FOLLOW UP VISIT RELATED TO ORIGINAL PX Reason for Visit and Comments: Post-op [483] - Mike is here today for post op visit: alculus of gallbladder, s/p 08/10/24 LAP MIGUELINA Normal [facility] Anesthesiaon 08-10-2024 Anesthesia [id number] Mike Lopez 1960 Provider Department Center 08/10/2024 TANMAY TIRADO [facility] OR [facility] Family History Problem Relation Age of Onset Cancer Mother Family Status - Relation Status Age at Mother [facility] HISTOLOGY - TISSUE EXAMon LAB AP CASE REPORT Normal [facility] Comment on above: Order Comment: Pre-o p diagnosis:Calculus of gallbladder without cholecystitis without obstruction [K80.20] Result Comment: Surg ical Pathology Case: [id number] Authorizing Provider: Denice Moreno MD Collected: 08/10/2024 1443 Ordering Location: [facility] Main Operating Room Received: 08/10/2024 1503 Pathologist: Ese Maher MD Specimen: Gallbladder, GALLBLADDER Performed By: #### L [id number] ####[facility] LAB (BEAKER)[address] [place] [address] LAB AP CLINICAL INFORMATION Normal [facility] Comment on above: Order Comment: Pre-o p diagnosis:Calculus of gallbladder without cholecystitis without obstruction [K80.20] Result Comment: Post -Op Diagnoses K80.20 - Calculus of gallbladder without cholecystitis without obstruction [ICD-10-CM] Performed By: #### L [id number] ####[facility] ([facility])[address] [place] [address] LAB AP GROSS DESCRIPTION A. Gallbladder. [facility] Comment on above: Order Comment: [...] has an average thickness of 0.1 cm. Senior Logistics Manager sections are submitted as follows: Cassette summary: A1: Cystic duct margin, en face and neck A2: Body and fundus Yadira Carcamo, Pathologists' Key Account Executive Student Performed By: #### L [id number] ####[facility] ([facility])[address] [place] [address] LAB AP MICROSCOPIC DESCRIPTION Microscopic examination performed. [facility] Comment on above: Order Comment: Pre-o p diagnosis:Calculus of gallbladder without cholecystitis without obstruction [K80.20] Performed By: #### L [id number] ####[facility] ([facility])[address] [place] [address] LAB AP REPORT FINAL DIAGNOSIS NARRATIVE [facility] Comment on above: Order Comment: Pre-o p diagnosis:Calculus of gallbladder without cholecystitis without obstruction [K80.20] Result Comment: A. G allbladder, cholecystectomy: - Chronic cholecystitis with cholelithiasis. Performed By: #### L [id number] ####[facility] (SHARI)[address] [address] HPon 08-10-2024 HP History Of Present Illness Mike Lopez is a 63 y.o. male presenting with cholelithiasis and chronic cholecystitis. He has been advised to have cholecystectomy. His abdominal pain remains under control at this time, occasionally will have some discomfort. His used car make ready worker has seen him and cleared him [...] obstruction Debbie Burgess MD General Surgery Resident [facility] NURSNOTEon 08-10-2024 NURSNOTE Discharge instructio ns discussed with pt and pt's . Stated understanding. Prescription given and sent home with pt. [facility] OPNOTEon 08-10-2024 OPNOTE LAPAROSCOPIC CHOLECYSTECTOMY Operative Note Date: 08/10/2024 Location: [facility] OR Name: Mike Lopez, : 1960, Diagnosis Pre-op Diagnosis * Calculus of gallbladder without cholecystitis without obstruction [K80.20] Post-op Diagnosis * Calculus of gallbladder without cholecystitis without obstruction [K80.20] Procedures LAPAROSCOPIC CHOLECYSTECTOMY 52761 - [place] LAPS SURG CHOLECYSTECTOMY W/CHOLANGIOGRAPHY Surgeons Primary: Denice Moreno MD Resident - Assisting: Panfilo Burgess MD Procedure Summary Anesthesia: General ASA: IV Estimated Blood Loss: Minimal Total IV Fluids: 500 mL Drains: * None in log * Specimens ID Source Type Tests Collected By Collected At Frozen? Priority Lab ID A Gallbladder Tissue HISTOLOGY - TISSUE EXAM Denice Moreno MD 08/10/24 1443 No [id number] Description: GALLBLADDER Staff: Step Finisher: Clark Bonner RN; Osman Jacobs RN Relief Scrub: Vianca Faria, POPPY Scrub Person: Ruab Petty, POPPY Indications: Mike Lopez is an [...] - hemodynamically stable. Condition: stable Denice Moreno [facility] POCT GLUCOSE METER UNSOLICIT ED RESULTSon 08-10-2024 Glucose [Mass/Vol] 99 mg/dL Normal 70-105 [facility] Comment on above: Order Comment: Waive d Testing in the ED is performed under the ED CLIA certificate #[id number]. Result Comment: rfit ch2 Performed By: #### L [id number] ####[facility] (BEAKER)[address] [place] [address] 36on 07-12-2024 36 ----- Message ----- From: Bull Leary NP Sent: 06/27/2024 2:48 PM EDT To: Julieta Boyd MA Subject: RE: Import I called. They said the time frame for peer to peer is out of the time window. Unfortunately, let the patient know his insurance denied the ECHO and we can try again in a few months. Thanks LM on VM. [facility] Consulton 06-26-2024 Consult [id number] Mike Lopez 1960 M Date Provider Department Center 06/26/2024 DENICE DIAZ [facility] SURG Second Fl Family History Problem Relation Age of Onset Cancer Mother Family Status - Relation Status Age at Mother Level of Service:[address]25 [place] OFFICE/OUTPATIENT NEW LOW MDM 30 MINUTES Reason for Visit and Comments: Consult [484] - Mike is here today for consult: Calculus of gallbladder, S/P CT abdomin and pelvis [facility] Office Visiton 05-23-2024 Follow-up visit [id number] Mike Lopez 1960 M Date Provider Department Center 05/23/2024 [facility] Family History Problem Relation Age of Onset Cancer Mother Family Status - Relation Status Age at Mother Level of Service:[address]3937 [place] OFFICE/OUTPATIENT ESTABLISHED MOD MDM 30 MIN Reason for Visit and Comments: Congestive Heart Failure [127] [facility] Ambulatory Visit Summaryon 0 05-17-2024 [...] for choosing us for your care. Normal [facility] Family Medicine Office/Clini c Noteon 05-17-2024 [...] Family History Family history is negative Normal [facility] Comment on above: Result Comment: Elec [...] 2:40 PM EDT With: Jailyn Blanc Where: [address] [address]- Medications What How Much When Why Instructions New pantoprazole (Pantoprazole [address] Tab) 1 Tablets By Mouth Every day Gallstones Acid reflux BMI 25.0-25.9,adult Overweight Smoker Refills: 1 Pickup at [facility]/pharmacy #[id number] Unchanged albuterol (Albuterol (Eqv-Ventolin HFA) 90 [...] EVERY DAY FOR 30 DAYS Pharmacy Information [facility]/pharmacy #[id number]: [address], [place] [id number] [phone] Allergies No Known Medication Allergies Problems Ongoing [...] for choosing us for your care. Normal [facility] Family Medicine Office/Clini c Noteon 04-19-2024 Family Medicine Office/Clinic Note Family Medicine Office/Clinic Note Chief Complaint Establish Care HPI Staff Pt is here today to establish care. Establish Care: History: Any previous diagnosis: COPD, HTN, elevated cholesterol History of seeing any specialist: Clinical Support Tech & Community Recreation Coordinator When was your last doctors visit: [facility]- 02/2024 Cardio-10/2023 Last provider: Dr. Bansal Any recent labs: [facility] ER 03/11/24 Health Maintenance UTD: Colonoscopy: denies PSA: denies Acute: Current issues/complaints: abdominal problems: [facility] ER 03/11/24. CC: abdominal pain CT performed. [...] best. order for u/s of gallbladder to [facility] provided and faxed. RTC 1 months for follow up. may consider lipid panel Ordered: pantoprazole, 40 mg = 1 tab(s), Oral, Daily, # 90 tab(s), Refills(s) 1, [id number] 176, cm, 04/19/24 13:00:00 EDT, Height/Length [...] Daily, # 90 tab(s), Refills(s) 1, [facility], 176, cm, 04/19/24 13:00:00 EDT, Height/Length Dosing, 79, kg, 04/19/24 13:00:00 EDT, Weight Dosing 3. BMI 25.0-25.9,adult (Z68.25: Body mass index [BMI] 25.0-25.9, adult) BMI education given Ordered: pantoprazole, 40 mg = 1 tab(s), Oral, Daily, # 90 tab(s), Refills(s) 1, [facility], 176, cm, 04/19/24 13:00:00 EDT, Height/Length Dosing, 79, kg, 04/19/24 13:00:00 EDT, Weight Dosing 4. Overweight (E66.3: Overweight) see above Ordered: pantoprazole, 40 mg = 1 tab(s), Oral, Daily, # 90 tab(s), Refills(s) 1, [id number], 176, cm, 04/19/24 13:00:00 EDT, Height/Length Dosing, 79, kg, 04/19/24 13:00:00 EDT, Weight Dosing 5. Smoker (F17.200: Nicotine dependence, unspecified, uncomplicated) consider not smoking Ordered: pantoprazole, 40 mg = 1 tab(s), Oral, Daily, # 90 tab(s), Refills(s) 1, Pharmacy: [facility]/pharmacy #[id number], 176, cm, 04/19/24 13:00:00 EDT, Height/Length [...] 1/2 pack (more content not included)... Normal [facility] Comment on above: Result Comment: Elec [...] discussion of perhaps a cardiomyopathy. No h/o SC. Patient had a prior drinking history many [...] by: ARMANDO GALARZA Date: 2022-09-22 15:11 Normal [facility] CBCon 06-28-2022 Erythrocyte distribution width (RBC) [Ratio] 12.8 % Normal 11.5 - 14.5 [facility] Comment on above: Performed By: #### C BC #### [address] [address] Hematocrit (Bld) [Volume fraction] 48.1 % Normal 41.0 - 52.0 [facility] Comment on above: Performed By: #### C BC #### [address] [address] Hemoglobin (Bld) [Mass/Vol] 16.4 g/dL Normal 13.5 - 17.5 [facility] Comment on above: Performed By: #### C BC #### [address] [address] MCHC (RBC) [Mass/Vol] 34.1 g/dL Normal 32.0 - 36.0 [facility] Comment on above: Performed By: #### C BC #### [address] [address] MCV (RBC) [Entitic vol] 93 fL Normal 80 - 100 [facility] Comment on above: Performed By: #### C BC #### [address] [address] NUCLEATED RBC 0.0 /100 WBC Normal 0.0 - 0.0 [facility] Comment on above: Performed By: #### C BC #### [address] [address] Platelets (Bld) [#/Vol] 189 10*3/uL Normal 150 - 450 [facility] Comment on above: Performed By: #### C BC #### [address] [address] RBC 5.18 x10E12/L Normal 4.50 - 5.90 [facility] Comment on above: Performed By: #### C BC #### [address] [address] WBC (Bld) [#/Vol] 8.3 10*3/uL Normal 4.4 - 11.3 [facility] Comment on above: Performed By: #### C BC #### [address] [address] CHEST 1 VIEWon 06-28-2022 CHEST 1 VIEW Patient Name: MIKE LOPEZ STUDY: CHEST 1 VIEW; 06/28/2022 2:43 pm INDICATION: left lung biopsy . COMPARISON: 10/12/2021 ACCESSION NUMBER(S): [id number] ORDERING CLINICIAN: EDUARDO MAS FINDINGS: CARDIOMEDIASTINAL SILHOUETTE: [...] pneumothorax. Electronically signed by: RAMONA ONEAL MD [facility] CHEST 1 VIEW Patient Name: MIKE LOPEZ STUDY: CHEST 1 VIEW; 06/28/2022 1:41 pm INDICATION: Left lung biopsy . COMPARISON: 06/28/2022 ACCESSION NUMBER(S): [id number] ORDERING CLINICIAN: EDUARDO MAS FINDINGS: DEVICES: None CARDIOMEDIASTINAL SILHOUETTE: Cardiomediastinal silhouette is normal in size and configuration.Right-si ded aortic arch. No significant atherosclerotic calcification LUNGS: Improved opacity in the left upper lobe since yesterday. No pneumothorax. No pleural effusion. BONES: No acute osseous changes. IMPRESSION: 1. Interval improvement left apical focal opacity since yesterday. No pneumothorax. Electronically signed by: RAMONA ONEAL MD [facility] IN BIOPSY LUNG PERCUTANEOUS NEEDLEon 06-28-2022 IN BIOPSY LUNG PERCUTANEOUS NEEDLE Patient Name: MIKE LOPEZ STUDY: IN BIOPSY LUNG; PERCUTANEOUS NEEDLE; 06/28/2022 12:15 pm INDICATION: CT needle biopsy ANDRE R91.8: Multiple pulmonary nodules. COMPARISON: None. ACCESSION NUMBER(S): [id number] ORDERING CLINICIAN: CELSO IBARRA TECHNIQUE: TEACHING YOUNG: Eduardo Mas MD CONSENT: The patient was [...] and versed. Total intra-service sedation time from 6185-0770 hours (25 minutes). The physician was assisted [...] above: Performed By: #### P TINR #### [address] [address] PT, INR 1.1 Normal 0.9 - 1.1 [facility] Comment on above: Performed By: #### P TINR #### [address] [address] [facility] Surgical Pathology Depar tmenton 06-28-2022 [facility] Surgical Pathology Department Name MIKE LOPEZ Pathologist: Katelynn Cyr MD, Ph.D. Date of Procedure: 06/28/2022 Date Received: 06/28/2022 Date Reported 07/01/2022 Submitting Physician: CELSO IBARRA DO Location: [facility] Copy To/Referring/Attending : EDUARDO MAS MD Other External # FINAL DIAGNOSIS LUNG, LEFT UPPER LOBULE NODULE, BIOPSY: --MINUTE FRAGMENT OF LUNG PARENCHYMA WITHOUT SIGNIFICANT PATHOLOGIC FINDINGS, INSUFFICIENT FOR DIAGNOSIS. SEE NOTE Note: Microscopic examination of H AND E sections demonstrates minute fragments of lung parenchyma without significant abnormalities. Findings might not be corporate sales representative of the clinically identified lesion. Clinical correlation is recommended Electronically Signed Out By Katelynn Cyr MD, Ph.D./MAC By the signature on this report, the individual or group listed as making the Final Interpretation/Diagnos is certifies that they have reviewed this case. Diagnostic interpretation performed at [address] [place] [address] Clinical History: Physician Contact Number: [phone] Fixative (A): Formalin Clinical Diagnosis History LEFT LUNG NODULE Specimens Submitted As: A: LEFT UPPER LUNG NODULE Gross Description: Received in formalin, labeled with the patient?s name and hospital number and left lung nodule bx , are multiple minute pink-white, soft tissue fragments aggregating to 0.3 x 0.2 x 0.1 cm. The specimen is submitted in toto in one cassette. RCC rcc/06/28/2022 [facility] Department of Pathology [address] [place] [address] Normal [facility] Comment on above: Performed By: #### U [facility] #### [facility] Surgical Pathology Department [address] [place] [address] MRI BRAIN WO CONon 2 MRI BRAIN [...] by: TAMIE URIOSTEGUI Date: 2022-06-09 13:29 Normal [facility] HEMOGLOBINon 05-21-2022 Hemoglobin (Bld) [Mass/Vol] 15.7 g/dL Normal 14.0-18.0 [facility] Comment on above: Performed By: #### B #### [facility] [address] [place] [address] Dr. Richard Linares Office Visit (Thoracic and [...] Pre/PostBronchodilator Spirometry; Status:Active - Retrospective Authorization; Requested for:[id number]; Provider Impressions Mr. Lopez is a pleasant [...] discussion of perhaps a cardiomyopathy. No h/o SC. Patient had a prior drinking history many [...] (Z80.9) Father (more content not included)... Normal [facility] Screening.on 022 Fall risk assessment a) No falls within the last year -Cardiology- [place] [address] Work Phone: Tobacco use status [facility] a) Yes -Cardiology- [place] [address] Work Phone: FUNGAL AB QUANTITAIVE DOUBLE IMMUNODIFFUon 04-17-2022 Aspergillus flavus Negative Normal Neg:<1:1 [facility] Comment on above: Performed By: #### C [facility] #### [facility] [address] [place] [address] Dr. Richard Linares Aspergillus fumigatus Negative Normal Neg:<1:1 [facility] Comment on above: Performed By: #### C VDTBH #### [facility] [address] [place] [address] Dr. Richard Linares Aspergillus niger Negative Normal Neg:<1:1 [facility] Comment on above: Performed By: #### C VDTBH #### [facility] [address] [place] [address] Dr. Richard Linares Blastomyces Negative Normal Neg:<1:1 [facility] Comment on above: Performed By: #### C VDTBH #### [facility] [address] [place] [address] Dr. Richard Linares HISTOPLASMA CAP AB QUANT DID on 04-16-2022 Histoplasma Mycelial CF Ab. Negative Normal Neg:<1:2 [facility] Comment on above: Performed By: #### B MP #### [facility] [address] [place] [address] Dr. Richard Linares Histoplasma Yeast CF Ab 1:2 Normal Neg:<1:2 [facility] Comment on above: Performed By: #### B MP #### [facility] [address] [place] [address] Dr. Richard Linares ANTI NEUTROPHIL CYTOPLASMIC AB (ANCA) PRon 04-15-2022 Anti-MPO Antibodies <0.2 Normal 0.0-0.9 [facility] Comment on above: Result Comment: Perf ormed at: BN Performed By: #### B MP #### [facility] [address] [place] [address] Dr. Richard Linares Anti-PR3 Antibodies <0.2 Normal 0.0-0.9 [facility] Comment on above: Result Comment: Perf ormed at: BN Performed By: #### B MP #### [facility] [address] [place] [address] Dr. Richard Linares Atypical pANCA <1:20 Normal Neg:<1:20 [facility] Comment on above: Result Comment: The atypical pANCA pattern has been observed in a significant percentage of patients with ulcerative colitis, primary sclerosing cholangitis and autoimmune hepatitis. Performed at: CB Performed By: #### B MP #### [facility] [address] [place] [address] [address] Richard Linares Cytoplasmic (C-ANCA) <1:20 Normal Neg:<1:20 [facility] Comment on above: Result Comment: Perf ormed at: CB Performed By: #### B MP #### [facility] [address] [place] [address] Dr. Richard Linares Perinuclear (P-ANCA) <1:20 Normal Neg:<1:20 [facility] Comment on above: Result Comment: The presence of positive fluorescence exhibiting P-ANCA or C-ANCA patterns alone is not specific for the diagnosis of Arnulfo's Granulomatosis (WG) or microscopic polyangiitis. Decisions about treatment should not be based solely on ANCA IFA results. The International ANCA Group Consensus recommends follow up testing of positive sera with both NY-3 and MPO-ANCA enzyme immunoassays. As many as 5% serum samples are positive only by EIA. Ref. AM J Clin Pathol 1999;111:507-513. Performed at: CB Performed By: #### B MP #### [facility] [address] [place] [address] Dr. Richard Linares CYCLIC CITRULLINATED PEPTIDE AB (CCP)on 04-15-2022 CCP Antibodies IgG/IgA 1 units Normal 0-19 [facility] Comment on above: Result Comment: Nega tive <20 Weak positive 20 - 39 Moderate positive 40 - 59 Strong positive >59 Performed By: #### C VDTBH #### [facility] [address] [place] [address] Dr. Richard Linares HISTOPLASMA GALACTOMANNAN AG URINEon 04-15-2022 Histoplasma Gal'madhuri Ag <0.5 Normal <0.5 ng/mL [facility] Comment on above: Performed By: #### H ISTGAL #### [facility] [address] [place] [address] Dr. Richard Linares OSCAR EIA W/REFLEX 5 BIOMARKER Son 04-14-2022 OSCAR Direct Negative Normal Negative [facility] Comment on above: Performed By: #### C VDTBH #### [facility] [address] [place] [address] Dr. Richard Linares ANGIOTENSION-CONVERTING ENZY ME (MATT)on 04-14-2022 MATT 15 U/L Normal 14-82 [facility] Comment on above: Performed By: #### A NGIOC #### [facility] [address] [place] [address] Dr. Richard Linares ANTISCLERODERMA ABon 022 Antiscleroderma-70 Antibodies <0.2 Normal 0.0-0.9 [facility] Comment on above: Performed By: #### A NSCLER #### [facility] [address] [place] [address] Dr. Richard Linares RHEUMATOID FACTORon 04-14-20 22 RA Latex Turbid. <10.0 Normal <14.0 [facility] Comment on above: Performed By: #### B MP #### [facility] [address] [place] [address] Dr. Richard Linares SED RATE WESTERGRENon 2021 SED RATE 1 mm/hr Normal <=20 [facility] Comment on above: Performed By: #### S EDR #### [facility] [address] [place] [address] Dr. [address] CT SKULL BASE [...] by: ANGELITO MILAN Date: 2022-04-12 14:48 Normal [facility] CT LUNG CANCER SCREENINGon 0 03-25-2022 [...] by: ARMANDO GALARZA Date: 2022-03-25 08:22 Normal [facility] ECHOCARDIO M/2D COMPLETEon 0 03-24-2022 ECHOCARDIO M/2D COMPLETE Patient: MIKE LOPEZ Exam Date: 03/24/2022 : 1960 Gender:M Ordering : SANIYA LANDON Admission #: [id number] Family : DR ELOY BANSAL . Order #: [id number] CLICK HERE TO VIEW EXAM ECHOCARDIOGRAM REPORT [...] Lu M.D. on 03/24/2022 at 17:32 Normal [facility] PROF CHEM 8 (BAS METB)on Anion gap [Moles/Vol] 13.4 mmol/L Normal [facility] Comment on above: Performed By: #### C VDTBH #### [facility] [address] [place] [address] Dr. Richard Linares Calcium [Mass/Vol] 9.0 mg/dL Normal 8.5-10.1 [facility] Comment on above: Performed By: #### C VDTBH #### [facility] [address] [place] [address] Dr. Richard Linares Chloride [Moles/Vol] 102 mmol/L Normal 98-107 [facility] Comment on above: Performed By: #### C VDTBH #### [facility] [address] [place] [address] Dr. Richard Linares CO2 [Moles/Vol] 32.1 mmol/L Critically high 21.0-32.0 [facility] Comment on above: Performed By: #### C VDTBH #### [facility] [address] [place] [address] Dr. Richard Linares Creatinine [Mass/Vol] 1.00 mg/dL Normal 0.70-1.30 [facility] Comment on above: Performed By: #### C VDTBH #### [facility] [address] [place] [address] Dr. Richard Linares EGFR-AF CUBAN >=60 Normal >=60 [facility] Comment on above: Performed By: #### C VDTBH #### [facility] [address] [place] [address] Dr. Richard Linares EGFR-NON AF CUBAN >=60 Normal >=60 [facility] Comment on above: Performed By: #### C VDTBH #### [facility] [address] [address] [address] Richard Linares Glucose [Mass/Vol] 109 mg/dL Critically high 74-106 [facility] Comment on above: Performed By: #### C VDTBH #### [facility] [address] [address] [address] Richard Linares Potassium [Moles/Vol] 4.5 mmol/L Normal 3.5-5.1 [facility] Comment on above: Performed By: #### C VDTBH #### [facility] [address] [address] [address] Richard Linares Sodium [Moles/Vol] 143 mmol/L Normal 136-145 [facility] Comment on above: Performed By: #### C VDTBH #### [facility] [address] [address] [address] Richard Linares Urea nitrogen [Mass/Vol] 11.0 mg/dL Normal 7.0-18.0 [facility] Comment on above: Performed By: #### C VDTBH #### [facility] [address] [address] [address] Richard Linares Urea nitrogen/Creatinine [Mass ratio] 11.0 mg/mg Normal [facility] Comment on above: Performed By: #### C VDTBH #### [facility] [address] [address] [address] Richard Linares Cardiovascular Lab Reporton 12-22-2021 Cardiovascular Lab Report [facility]: [id number] Physician: Carleen Zuniga of [facility] Service Date: 12/21/2021 Division of Birthdate: 1960 Cardiology Room #: Adult Cardiovascular Services [place] [id number] Cardiovascular Laboratory Report INDICATION: The patient is [...] signed informed consent. He was brought to laboratory monitor in a fasting state. The right neck area was prepped and draped in usual fashion. Micropuncture technique and ultrasound guidance were used for access in the right internal jugular vein. A 6-Slovenian x 11 cm sheath was placed. A 6-Slovenian Barboza catheter was used for right catheterization with measurement of pressures and calculation of cardiac output using the estimated Bridget method. Barboza catheter was removed. Modified Tyrone's test was favorable on the right. Access in the right radial artery was obtained using micropuncture technique and ultrasound guidance. A 6-Slovenian x 11 cm Hydrophilic sheath was advanced. Verapamil was given through the sheath, and heparin was administered intravenously. Bilateral selective coronary angiography was then performed using 6-Slovenian JL3.5 and JR5 diagnostic catheters. Catheters were [...] Valdez M.D. Date Trans: 12/22/2021 04:31 A/lois [id number] cc: Eloy Bansal M.D. [address] [place] [phone] Normal [facility] CBC AUTO DIFFon 12-18-2021 BASO # 0.1 103/ul Normal 0.0-0.1 [facility] Comment on above: Performed By: #### C BC #### [facility] [address] [place] [address] Dr. Richard Linares Basophils/100 WBC (Bld) 0.8 % Normal 0.2-2.0 [facility] Comment on above: Performed By: #### C BC #### [facility] [address] [address] [address] Richard Linares EO # 0.0 103/ul Normal 0.0-0.7 [facility] Comment on above: Performed By: #### C BC #### [facility] [address] [place] [address] Dr. Richard Linares Eosinophils/100 WBC (Bld) 0.0 % Critically low 0.9-7.0 [facility] Comment on above: Performed By: #### C BC #### [facility] [address] [place] [address] Dr. Richard Linares Erythrocyte distribution width (RBC) [Ratio] 12.9 % Normal 11.0-15.0 [facility] Comment on above: Performed By: #### C BC #### [facility] [address] [place] [address] Dr. Richard Linares Hematocrit (Bld) [Volume fraction] 46.1 % Normal 42.0-54.0 [facility] Comment on above: Performed By: #### C BC #### [facility] [address] [place] [address] Dr. Richard Linares Hemoglobin (Bld) [Mass/Vol] 15.6 g/dL Normal 14.0-18.0 [facility] Comment on above: Performed By: #### C BC #### [facility] [address] [place] [address] Dr. Richard Linares IG # 0.04 10e3/ul Critically high 0.00-0.03 [facility] Comment on above: Performed By: #### C BC #### [facility] [address] [place] [address] Dr. Richard Linares IG % 0.5 % Normal 0.0-0.5 [facility] Comment on above: Performed By: #### C BC #### [facility] [address] [place] [address] Dr. Richard Linares LYMPH # 1.5 103/ul Normal 1.2-3.8 [facility] Comment on above: Performed By: #### C BC #### [facility] [address] [place] [address] Dr. Richard Linares Lymphocytes/100 WBC (Bld) 17.7 % Critically low 20.5-60.0 [facility] Comment on above: Performed By: #### C BC #### [facility] [address] [place] [address] Dr. Richard Linares MANUAL DIFF REQ NO Normal [facility] Comment on above: Performed By: #### C BC #### [facility] [address] [place] [address] Dr. Richard Linares MCH (RBC) [Entitic mass] 31.1 pg Normal 25.9-34.0 [facility] Comment on above: Performed By: #### C BC #### [facility] [address] [place] [address] Dr. Richard Linares MCHC (RBC) [Mass/Vol] 33.8 g/dL Normal 29.9-35.2 [facility] Comment on above: Performed By: #### C BC #### [facility] [address] [place] [address] Dr. Richard Linares MCV (RBC) [Entitic vol] 92.0 fL Normal 80.0-94.0 [facility] Comment on above: Performed By: #### C BC #### [facility] [address] [place] [address] Dr. Richard Linares MONO # 0.7 103/ul Normal 0.3-0.8 [facility] Comment on above: Performed By: #### C BC #### [facility] [address] [place] [address] Dr. Richard Linares Monocytes/100 WBC (Bld) 8.7 % Normal 1.7-12.0 [facility] Comment on above: Performed By: #### C BC #### [facility] [address] [place] [address] Dr. Richard Linares NEUT # 6.2 103/ul Normal 1.4-6.5 [facility] Comment on above: Performed By: #### C BC #### [facility] [address] [place] [address] Dr. Richard Linares Neutrophils/100 WBC (Bld) 72.3 % Normal 43.0-75.0 [facility] Comment on above: Performed By: #### C BC #### [facility] [address] [address] [address] Richard Linares Platelet mean volume (Bld) [Entitic vol] 10.2 fL Normal 9.5-13.5 [facility] Comment on above: Performed By: #### C BC #### [facility] [address] [address] [address] Richard Linares PLT 197 103/ul Normal 150-450 [facility] Comment on above: Performed By: #### C BC #### [facility] [address] [address] [address] Richard Linares RBC 5.01 106/ul Normal 4.70-6.10 [facility] Comment on above: Performed By: #### C BC #### [facility] [address] [place] [address] Dr. Richard Linares WBC 8.5 103/ul Normal 4.0-11.0 [facility] Comment on above: Performed By: #### C BC #### [facility] [address] [address] [address] Richard Linares [facility]04 SARS-CoV-2 (COVID-19) RNA MOLLY+probe Ql (Unsp spec) Not detected Normal NOT DETECTED [facility] Comment on above: Result Comment: This test is not yet approved or cleared by the [place] FDA. When there are no FDA-approved or cleared tests available, and other criteria are met, FDA can make tests available under an emergency access mechanism called an Emergency Use Authorization (EUA). The EUA for this test is supported by the [place] of Health and Human Service's (HHS's) declaration [...] SARS-CoV-2. Performed By: #### B MP #### [facility] [address] [place] [address] Dr. Richard Linares PROF CHEM 8 (BAS METB)on Anion gap [Moles/Vol] 6.2 mmol/L Normal [facility] Comment on above: Performed By: #### B MP #### [facility] [address] [place] [address] Dr. Richard Linares Calcium [Mass/Vol] 8.2 mg/dL Critically low 8.5-10.[address] [facility] Comment on above: Performed By: #### B MP #### [facility] [address] [place] [address] Dr. Richard Linares Chloride [Moles/Vol] 102 mmol/L Normal 98-107 [facility] Comment on above: Performed By: #### B MP #### [facility] [address] [place] [address] Dr. Richard Linares CO2 [Moles/Vol] 34.6 mmol/L Critically high 22.0-30.0 [facility] Comment on above: Performed By: #### B MP #### [facility] [address] [place] [address] Dr. Richard Linares Creatinine [Mass/Vol] 0.96 mg/dL Normal 0.66-1.25 [facility] Comment on above: Performed By: #### B MP #### [facility] [address] [place] [address] Dr. Richard Linares EGFR-AF CUBAN >60 Normal >=60 [facility] Comment on above: Performed By: #### B MP #### [facility] [address] [place] [address] Dr. Richard Linares EGFR-NON AF CUBAN >60 Normal >=60 [facility] Comment on above: Performed By: #### B MP #### [facility] [address] [place] [address] Dr. Richard Linares Glucose [Mass/Vol] 94 mg/dL Normal 74-106 [facility] Comment on above: Performed By: #### B MP #### [facility] [address] [address] [address] Richard Linares Potassium [Moles/Vol] 3.8 mmol/L Normal 3.4-5.0 [facility] Comment on above: Performed By: #### B MP #### [facility] [address] [address] [address] Richard Linares Sodium [Moles/Vol] 139 mmol/L Normal 137-145 [facility] Comment on above: Performed By: #### B MP #### [facility] [address] [address] [address] Richard Linares Urea nitrogen [Mass/Vol] 11.0 mg/dL Normal 7.0-18.0 [facility] Comment on above: Performed By: #### B MP #### [facility] [address] [address] [address] Richard Linares Urea nitrogen/Creatinine [Mass ratio] 11.5 mg/mg Normal [facility] Comment on above: Performed By: #### B MP #### [facility] [address] [address] [address] Richard Linares US carotid doppler BIon 11-05 US carotid doppler [place] [address] Ultrasound Report Signed Patient: Mike Lopez MR#: [id number] : 1960 Acct:[id number] Age/Sex: 61 / M ADM Date: 12/01/21 Loc: Room: Type: [facility] Attending Dr: Saniya CASTILLO Ordering Provider: [...] Milton Wei M.D.12/02/2021 4:20 PM Dictation Location: [facility]04 Tech: [facility] Transcribed By: DIANA 12/02/211619 Dictated By: Milton Wei MD 12/02/21 161 Signed By: 12/02/21 1620 [facility] ECHOCARDIO M/2D COMPLETEon 0 11-27-2021 ECHOCARDIO M/2D COMPLETE Patient: MIKE LOPEZ Exam Date: 11/27/2021 : 1960 Gender:M Ordering : SANIYA LANDON Admission #: [id number] Family : Order #: [id number] CLICK HERE TO VIEW EXAM ECHOCARDIOGRAM REPORT [...] Area(A4C): 15.10 cm2 Left Atrium Systolic Volume(A2C): 53475 mm3 Left Atrium Systolic Volume(A4C): 61568 mm3 Mitral Valve MV E to A Ratio: 0.80 Deceleration [place]: 4530 mm/s2 Mitral Valve A-Wave Peak Velocity: [...] Valdez M.D. on 11/30/2021 at 10:35 Normal [facility] NM STRESS/REST MULTIon 10-26 NM STRESS/REST MULTI Patient: MIKE LOPEZ Exam Date: 10/26/2021 : 1960 Gender:M Ordering : DR ELOY BANSAL . Admission #: [id number] Family : Order #: [id number] CLICK HERE TO VIEW EXAM RADIOLOGY REPORT [...] DEFECT: LOCATION: Basal inferior. Mid-inferior. Apical inferior. [place]. SIZE: Medium (3-4 segments). SEVERITY: Moderate. TYPE: [...] MD on 11/09/2021 at 11:40 Normal [facility] CBC AUTO DIFFon 10-12-2021 BASO # 0.0 103/ul Normal 0.0-0.1 [facility] Comment on above: Performed By: #### B MP #### [facility] [address] [place] [address] Dr. Richard Linares Basophils/100 WBC (Bld) 0.5 % Normal 0.2-2.0 [facility] Comment on above: Performed By: #### B MP #### [facility] [address] [place] [address] Dr. Richard Linares EO # 0.0 103/ul Normal 0.0-0.7 [facility] Comment on above: Performed By: #### B MP #### [facility] [address] [place] [address] Dr. Richard Linares Eosinophils/100 WBC (Bld) 0.0 % Critically low 0.9-7.0 [facility] Comment on above: Performed By: #### B MP #### [facility] [address] [place] [address] Dr. Richard Linares Erythrocyte distribution width (RBC) [Ratio] 12.8 % Normal 11.0-15.0 [facility] Comment on above: Performed By: #### B MP #### [facility] [address] [address] [address] Richard Linares Hematocrit (Bld) [Volume fraction] 41.8 % Critically low 42.0-54.0 [facility] Comment on above: Performed By: #### B MP #### [facility] [address] [address] [address] Richard Linares Hemoglobin (Bld) [Mass/Vol] 14.4 g/dL Normal 14.0-18.0 [facility] Comment on above: Performed By: #### B MP #### [facility] [address] [address] [address] Richard Linares IG # 0.01 10e3/ul Normal 0.00-0.03 [facility] Comment on above: Performed By: #### B MP #### [facility] [address] [place] [address] Dr. Richard Linares IG % 0.2 % Normal 0.0-0.5 [facility] Comment on above: Performed By: #### B MP #### [facility] [address] [place] [address] Dr. Richard Linares LYMPH # 0.9 103/ul Critically low 1.2-3.8 [facility] Comment on above: Performed By: #### B MP #### [facility] [address] [place] [address] Dr. Richard Linares Lymphocytes/100 WBC (Bld) 15.0 % Critically low 20.5-60.0 [facility] Comment on above: Performed By: #### B MP #### [facility] [address] [place] [address] Dr. Richard Linares MANUAL DIFF REQ NO Normal [facility] Comment on above: Performed By: #### B MP #### [facility] [address] [place] [address] Dr. Richard Linares MCH (RBC) [Entitic mass] 31.4 pg Normal 25.9-34.0 [facility] Comment on above: Performed By: #### B MP #### [facility] [address] [address] [address] Richard Linares MCHC (RBC) [Mass/Vol] 34.4 g/dL Normal 29.9-35.2 [facility] Comment on above: Performed By: #### B MP #### [facility] [address] [place] [address] Dr. Richard Linares MCV (RBC) [Entitic vol] 91.3 fL Normal 80.0-94.0 [facility] Comment on above: Performed By: #### B MP #### [facility] [address] [place] [address] Dr. Richard Linares MONO # 0.4 103/ul Normal 0.3-0.8 [facility] Comment on above: Performed By: #### B MP #### [facility] [address] [place] [address] Dr. Richard Linares Monocytes/100 WBC (Bld) 6.4 % Normal 1.7-12.0 [facility] Comment on above: Performed By: #### B MP #### [facility] [address] [place] [address] Dr. Richard Linares NEUT # 4.9 103/ul Normal 1.4-6.5 [facility] Comment on above: Performed By: #### B MP #### [facility] [address] [place] [address] Dr. Richard Linares Neutrophils/100 WBC (Bld) 77.9 % Critically high 43.0-75.0 [facility] Comment on above: Performed By: #### B MP #### [facility] [address] [place] [address] Dr. Richard Linares Platelet mean volume (Bld) [Entitic vol] 9.9 fL Normal 9.5-13.5 [facility] Comment on above: Performed By: #### B MP #### [facility] [address] [place] [address] Dr. Richard Linares PLT 208 103/ul Normal 150-450 [facility] Comment on above: Performed By: #### B MP #### [facility] [address] [place] [address] Dr. Richard Linares RBC 4.58 106/ul Critically low 4.70-6.10 [facility] Comment on above: Performed By: #### B MP #### [facility] [address] [place] [address] Dr. Richard Linares WBC 6.3 103/ul Normal 4.0-11.0 [facility] Comment on above: Performed By: #### B MP #### [facility] [address] [place] [address] Dr. Richard Linares Covid-19 PCR ([facility])on SARS-CoV-2 (COVID-19) RNA MOLLY+probe Ql (Unsp spec) Not detected Normal NOT DETECTED [facility] Comment on above: Result Comment: This test is not yet approved or cleared by the [place] FDA. When there are no FDA-approved or cleared tests available, and other criteria are met, FDA can make tests available under an emergency access mechanism called an Emergency Use Authorization (EUA). The EUA for this test is supported by the [place] of Health and Human Service's (HHS's) declaration [...] SARS-CoV-2. Performed By: #### C VDTBH #### [facility] [address] [place] [address] Dr. Richard Linares PROF 14(COMP METB)on 022 Albumin [Mass/Vol] 3.6 g/dL Normal 3.5-5.0 [facility] Comment on above: Performed By: #### C MP, HSTROPN #### [facility] [address] [place] [address] Dr. Richard Linares Albumin/Globulin [Mass ratio] 1.3 {ratio} Normal [facility] Comment on above: Performed By: #### C KORI, HSTROPN #### [facility] [address] [address] [address] Richard Linares ALP [Catalytic activity/Vol] 65 U/L Normal 38-126 [facility] Comment on above: Performed By: #### C MP, HSTROPN #### [facility] [address] [address] [address] Richard Linares ALT [Catalytic activity/Vol] 12 U/L Critically low 21-72 [facility] Comment on above: Performed By: #### C KORI, HSTROPN #### [facility] [address] [place] [address] Dr. Richard Linares Anion gap [Moles/Vol] 10.1 mmol/L Normal [facility] Comment on above: Performed By: #### C KORI, HSTROPN #### [facility] [address] [place] [address] Dr. Richard Linares AST [Catalytic activity/Vol] 8 U/L Critically low 17-59 [facility] [facility] Comment on above: Performed By: #### C KORI, HSTROPN #### [facility] [address] [place] [address] Dr. Richard Linares Bilirubin [Mass/Vol] 0.6 mg/dL Normal 0.2-1.3 [facility] Comment on above: Performed By: #### C KORI, HSTROPN #### [facility] [address] [place] [address] Dr. Richard Linares Calcium [Mass/Vol] 8.3 mg/dL Critically low 8.4-10.[address] [facility] Comment on above: Performed By: #### C MP, HSTROPN #### [facility] [address] [place] [address] Dr. Richard Linares Chloride [Moles/Vol] 106 mmol/L Normal 98-107 [facility] Comment on above: Performed By: #### C MP, HSTROPN #### [facility] [address] [address] [address] Richard Linares CO2 [Moles/Vol] 29.4 mmol/L Normal 22.0-30.0 [facility] Comment on above: Performed By: #### C MP, HSTROPN #### [facility] [address] [address] [address] Richard Linares Creatinine [Mass/Vol] 0.73 mg/dL Normal 0.66-1.25 [facility] Comment on above: Performed By: #### C MP, HSTROPN #### [facility] [address] [address] [address] Richard Linares EGFR-AF CUBAN >60 Normal >=60 [facility] Comment on above: Performed By: #### C MP, HSTROPN #### [facility] [address] [address] [address] Richard Linares EGFR-NON AF CUBAN >60 Normal >=60 [facility] Comment on above: Performed By: #### C MP, HSTROPN #### [facility] [address] [address] [address] Richard Linares Globulin (S) [Mass/Vol] 2.8 g/dL Normal [facility] Comment on above: Performed By: #### C MP, HSTROPN #### [facility] [address] [address] [address] Richard Linares Glucose [Mass/Vol] 133 mg/dL Critically high 74-106 T [facility] Comment on above: Performed By: #### C MP, HSTROPN #### [facility] [address] [address] [address] Richard Linares Potassium [Moles/Vol] 3.5 mmol/L Normal 3.4-5.0 [facility] Comment on above: Performed By: #### C MP, HSTROPN #### [facility] [address] [address] [address] Richard Linares Protein [Mass/Vol] 6.4 g/dL Normal 6.1-8.2 [facility] Comment on above: Performed By: #### C MP, HSTROPN #### [facility] [address] [address] [address] Richard Linares Sodium [Moles/Vol] 142 mmol/L Normal 137-145 [facility] Comment on above: Performed By: #### C MP, HSTROPN #### [facility] [address] [place] [address] Dr. Rihcard Linares Urea nitrogen [Mass/Vol] 9.0 mg/dL Normal 9.0-20.0 [facility] Comment on above: Performed By: #### C MP, HSTROPN #### [facility] [address] [place] [address] Dr. Richard Linares Urea nitrogen/Creatinine [Mass ratio] 12.3 mg/mg Normal [facility] Comment on above: Performed By: #### C MP, HSTROPN #### [facility] [address] [place] [address] Dr. Richard Linares TROPONIN, HIGH SENSITIVITYon 10-12-2021 HSTROP 6.9 pg/mL Normal 4.0-42.2 [facility] Comment on above: Result Comment: CUT- OFF POINTS HAVE BEEN ESTABLISHED BASED ON THE FOURTH UNIVERSAL DEFINITIONS OF MYOCARDIAL INFARCTION. THE UPPER REFERENCE LIMIT (URL) OF TROPONIN, DEFINED THE 99TH PERCENTILE OF cTnI DISTRIBUTION IN A REFERENCE POPULATION, HAS BEEN CONFIRMED THE DECISION THRESHOLD FOR SC DIAGNOSIS. Performed By: #### H STROPN #### [facility] [address] [place] [address] Dr. Richard Linares HSTROP 6.0 pg/mL Normal 4.0-42.2 [facility] Comment on above: Result Comment: CUT- OFF POINTS HAVE BEEN ESTABLISHED BASED ON THE FOURTH UNIVERSAL DEFINITIONS OF MYOCARDIAL INFARCTION. THE UPPER REFERENCE LIMIT (URL) OF TROPONIN, DEFINED THE 99TH PERCENTILE OF cTnI DISTRIBUTION IN A REFERENCE POPULATION, HAS BEEN CONFIRMED THE DECISION THRESHOLD FOR SC DIAGNOSIS. Performed By: #### C MP, HSTROPN #### [facility] [address] [place] [address] Dr. Richard Linares XR CHEST 1 Von [...] by: ARMANDO ZULETA Date: 2021-10-12 19:22 Normal [facility] Vital Signs Date Time Vital Sign Value Performing Clinician Facility 03-11-2025 14:26-0400 Body height 180.3 cm Carri Itzkowitz DO Work Phone: [facility] 03-11-2025 14:26-0400 Body mass index (BMI) [Ratio] 22.18 kg/m2 Carri Itzkowitz DO Work Phone: [facility] 03-11-2025 14:26-0400 Body weight 72.12 kg Carri Itzkowitz DO Work Phone: [facility] 03-04-2025 15:44-0400 Body height 180.3 cm Carri Itzkowitz DO Work Phone: [facility] 03-04-2025 15:44-0400 Body mass index (BMI) [Ratio] 22.18 kg/m2 Carri Itzkowitz DO Work Phone: [facility] 03-04-2025 15:44-0400 Body weight 72.12 kg Carri Itzkowitz DO Work Phone: [facility] 03-04-2025 15:44-0400 Diastolic blood pressure 64 mm[Hg] Carri Itzkowitz DO Work Phone: [facility] 03-04-2025 15:44-0400 Systolic blood pressure 88 mm[Hg] Carri Itzkowitz DO Work Phone: [facility] 05-14-2024 14:14-0400 Blood Pressure Location Benji MCCULLOUGH [facility] [place] 05-14-2024 14:14-0400 Diastolic blood pressure 66 mm[Hg] Benji MARIAL [facility] [place] 05-14-2024 14:14-0400 Heart rate 72 /min Benji NILL [facility] [place] 05-14-2024 14:14-0400 Respiratory rate 16 /min Benji NILL [facility] [place] 05-14-2024 14:14-0400 Systolic blood pressure 102 mm[Hg] Benji NILL [facility] 05-13-2022 10:53-0400 Body height 182.88 cm Eloy Bansal Work Phone: [facility]Gcpgdqckqg-Rehpa a 101 Work Phone: 05-13-2022 10:53-0400 Body mass index (BMI) [Ratio] 22.92 kg/m2 Eloy Bansal Work Phone: GB-Jlldlatbgs-Nlsja a 101 Work Phone: 05-13-2022 10:53-0400 Body surface area Derived from formula 1.98 m2 Eloy Bansal Work Phone: ZN-Qtpsfyxxzr-Mourp a 101 Work Phone: 05-13-2022 10:53-0400 Body temperature 97.1 [degF] Eloy Bansal Work Phone: MO-Nkrajscrcr-Eisri a 101 Work Phone: 05-13-2022 10:53-0400 Body weight 76.66 kg Eloy Bansal Work Phone: TO-Pjawoyptyu-Mhjgh a 101 Work Phone: 05-13-2022 10:53-0400 Diastolic blood pressure 69 mm[Hg] Eloy Bansal Work Phone: MD-Tuixfwargi-Ueajh a 063 Work Phone: 05-13-2022 10:53-0400 Heart rate 109 /min Eloy Calero Nimisha Work Phone: NV-Vnbgqrwocm-Gixfu a 669 Work Phone: 05-13-2022 10:53-0400 Respiratory rate 16 /min Eloy Calero Nimisha Work Phone: ZZ-Qoigjpwhzl-Cyvrr a 242 Work Phone: 05-13-2022 10:53-0400 SaO2% (BldA) [Mass fraction] 94 % Eloy Calero Nimisha Work Phone: TK-Jddgspwkwn-Kexen a 031 Work Phone: 05-13-2022 10:53-0400 Systolic blood pressure 107 mm[Hg] Eloy Calero Nimisha Work Phone: ZK-Vglactltvw-Bbrjg a 023 Work Phone: Encounters Encounter Date Encounter Type Care Provider Facility Start: 03-11-2025 End: 03-11-2025 ambulatory CARRI H ITZKOWITZ Not Available Start: 03-11-2025 End: 03-11-2025 Office outpatient visit 15 minutes Carri H Itzkowitz DO Work Phone: [facility] Comment on above: Thrombosed external hemorrhoid (Primary Dx) Start: 03-04-2025 End: 03-04-2025 ambulatory CARRI H ITZKOWITZ Not Available Start: 03-04-2025 End: 03-04-2025 Office outpatient new 45 minutes Carri H Itzkowitz DO Work Phone: [facility] Comment on above: Thrombosed external hemorrhoid Start: 02-26-2025 End: 02-26-2025 ambulatory SENIOR TECHNICAL SUPPORT ENGINEER Jailyn L Deyvi Facility:[facility] [place] Start: 01-30-2025 End: 01-30-2025 ambulatory SENIOR TECHNICAL SUPPORT ENGINEER Jailyn L Deyvi Facility:[facility] [place] Start: 11-30-2024 End: 11-30-2024 [facility] Start: 08-22-2024 End: 08-22-2024 ambulatory [facility] Start: 08-10-2024 End: 08-10-2024 ambulatory [facility] Start: 07-03-2024 End: 07-03-2024 Phys/qhp telephone evaluation 11-20 min Celso Ibarra DO Work Phone: [facility] Comment on above: Centrilobular emphys veronica (Multi) (Primary Dx); Lung nodule Start: 07-03-2024 [facility] Start: 06-26-2024 End: 06-26-2024 ambulatory [facility] Start: 06-25-2024 End: 06-25-2024 ambulatory [facility] Start: 05-23-2024 End: 05-23-2024 ambulatory [facility] Start: 05-23-2024 End: 05-23-2024 Encounter for other preprocedural examination [facility] Start: 05-17-2024 End: 05-17-2024 ambulatory SENIOR TECHNICAL SUPPORT ENGINEER Jailyn L Deyvi Facility:[facility] [place] Start: 05-14-2024 End: 05-14-2024 ambulatory SENIOR TECHNICAL SUPPORT ENGINEER Jailyn L Deyvi Facility:[facility] Start: 05-14-2024 End: 05-14-2024 Patient encounter procedure Benji MCCULLOUGH [facility] Start: 05-04-2024 ambulatory SENIOR TECHNICAL SUPPORT ENGINEER Jailyn Deyvi Facilit y:[facility] Start: 05-04-2024 ambulatory SENIOR TECHNICAL SUPPORT ENGINEER Jailyn Deyvi Facilit y:[facility] Start: 04-19-2024 End: 04-19-2024 ambulatory SENIOR TECHNICAL SUPPORT ENGINEER Jailyn L Deyvi Facility:[facility] [place] Start: 07-12-2023 End: 07-12-2023 Phys/qhp telephone evaluation 11-20 min Celso Ibarra DO Work Phone: [facility] Comment on above: Cigarette nicotine d ependence with nicotine-induced disorder (Primary Dx); Chronic respiratory failure with hypoxia, on home O2 therapy (CMS/HCC); Centrilobular emphysema (CMS/HCC); Lung nodule Start: 07-12-2023 End: 07-12-2023 ambulatory CELSO IBARRA [facility] Start: 04-14-2023 Patient encounter procedure Eloy Bansal Work Phone: [facility] Work Phone: Start: 04-14-2023 Phys/qhp telephone evaluation 11-20 min Eloy Bansal Work Phone: [facility] [address] Work Phone: Start: 04-14-[address] Eloy Bansal F acility:[facility] Start: 09-22-2022 End: 09-23-[address] ELOY BANSAL Facility:[facility]1 Start: 06-28-2022 End: 06-28-2022 ambulatory MD Eduardo Mas Facility:[id number] Start: 06-09-2022 End: 06-10-[address] ELOY BANSAL Facility:[facility]1 Start: 05-21-2022 End: 05-22-[address] ELOY BANSAL Facility:[facility]1 Start: 05-13-[address] [id number] Start: 05-13-2022 Office outpatient ne w 45 minutes Eloy Bansal Work Phone: [facility] Work Phone: Start: 05-13-2022 Patient encounter procedure Eloy Bansal Work Phone: UD-Tpiphqraor-Cxmewi 101 Work Phone: Start: 04-13-2022 End: 04-14-[address] ELOY BANSAL Facility:[facility]1 Start: 04-10-2022 End: 04-11-[address] ELOY BANSAL Facility:[facility]1 Start: 03-24-2022 End: 03-25-2022 ambulatory SANIYA RICCIS Facility:[facility]1 Start: 02-19-2022 End: 02-20-2022 ambulatory SANIYA LANDON Facility:[facility]1 Start: 12-21-2021 End: 12-22-2021 ambulatory SANIYA LANDON Facility:[facility] Start: 12-18-2021 End: 12-19-2021 ambulatory SANIYA [...] EDT Office Visit [facility] [address] [facility] [address] [place] [address] Carri Mckeon DO [address] [facility] [address] [place] [address] [address] [facility] Start: 07-03-2024 End: 07-03-2024 Telemedicine consultation with patient 07/03/2024 12:00 PM EDT Telemedicine [facility] [address] [place] [address] [place] [address] [place] [address] [place] [address] [facility] Start: 05-06-2024 COVID-19 Vaccine ( season) COVID-19 Vaccine ( season) [facility] Start: 05-06-2024 Influenza vaccination Influenza Vaccine (#1) [facility] Start: 05-06-2023 Influenza vaccination Influenza Vaccine (#1) [facility] Start: 2020 RSV High Risk: (Elderly (60+) or Population) (1 - Risk 60-74 years 1-dose series) RSV High Risk: (Elderly (60+) or Population) (1 - Risk 60-74 years 1-dose series) [facility] Start: 2010 Zoster Vaccines (1 of 2) Zoster Vaccines (1 of 2) [facility] Start: 1982 DTaP/Tdap/Td Vaccines (1 - Tdap) DTaP/Tdap/Td Vaccines (1 - Tdap) [facility] Start: 11-08-1979 Hepatitis A Vaccines (1 of 2 - Risk 2-dose series) Hepatitis A Vaccines (1 of 2 - Risk 2-dose series) [facility] Start: 1978 Diabetes mellitus screening Diabetes Screening [facility] Start: 1978 Hepatitis C screening Hepatitis C Screening [facility] Start: 1966 Pneumococcal Vaccine: Pediatrics (0 to 5 Years) and At-Risk Patients (6 to 64 Years) (1 - PCV) Pneumococcal Vaccine: Pediatrics (0 to 5 Years) and At-Risk Patients (6 to 64 Years) (1 - PCV) [facility] Start: 1966 Pneumococcal Vaccine: Pediatrics (0 to 5 Years) and At-Risk Patients (6 to 64 Years) (1 of 2 - PCV) Pneumococcal Vaccine: Pediatrics (0 to 5 Years) and At-Risk Patients (6 to 64 Years) (1 of 2 - PCV) [facility] Start: 1961 MMR Vaccines (1 of 1 - Standard series) MMR Vaccines (1 of 1 - Standard series) [facility] Start: 05-10-1961 COVID-19 Vaccine (#1) COVID-19 Vaccine (#1) [facility] Start: 1960 Creatinine measurement Creatinine Level [facility] Start: 1960 Echocardiography Echocardiogram [facility] Start: 1960 HIV screening HIV Screening [facility] Start: 1960 Lipid panel Lipid Panel [facility] Start: 1960 Potassium measurement Potassium Level [facility] Start: 1960 Screening for malignant neoplasm of colon [facility] Start: 1960 Thyroid stimulating hormone measurement TSH Level [facility] Start: 1960 Yearly Adult Physical Yearly Adult Physical [facility] Payers Date Payer Category Payer Private Health Insurance [facility] [id number] 2016 Medicaid (Managed Care) [facility] [id number] 2016 Unknown 2016 Unknown [id number] 1960 Unknown [id number] 2.16.840.1.456121.3.579.2. 647 1960 Unknown [id number] 2.16.840.1.387382.3.579.2. 1068 1960 Unknown [id number] 2.16.840.1.922948.3.579.2. 1069 1960 Unknown [id number] 2.16.840.1.513288.3.579.2. 593 1960 Unknown [id number] 2.16.840.1.666016.3.579.2. 593 1960 Unknown [id number] 2.16.840.1.463151.3.579.2. 593 1960 Unknown [id number] 2.16.840.1.711394.3.579.2. 593 1960 Unknown [id number] 2.16.840.1.601001.3.579.2. 593 1960 Unknown [id number] 2.16.840.1.121473.3.579.2. 593 1960 Unknown [id number] 2.16.840.1.400595.3.579.2. 593 1960 Unknown [id number] 2.16.840.1.444928.3.579.2. 593 1960 Unknown [id number] 2.16.840.1.903857.3.579.2. 593 1960 Unknown [id number] 2.16.840.1.807827.3.579.2. 593 1960 Unknown [id number] 2.16.840.1.571901.3.579.2. 593 1960 Unknown [id number] 2.16.840.1.459129.3.579.2. 593 1960 Unknown [id number] 2.16.840.1.167301.3.579.2. 593 1960 Unknown [id number] 2.16.840.1.397270.3.579.2. 593 1960 Unknown [id number] 2.16.840.1.083953.3.579.2. 356 1960 Unknown [id number] 2.16.840.1.404438.3.579.2. 1245 1960 Unknown [id number] 2.16.840.1.169024.3.579.2. 1245 1960 Unknown [id number] 2.16.840.1.968235.3.579.2. 727 1960 Unknown [id number] 2.16.840.1.450354.3.579.2. 727 1960 Unknown [id number] 2.16.840.1.388708.3.579.2. 727 1960 Unknown [id number] 2.16.840.1.307572.3.579.2. 727 1960 Unknown [id number] 2.16.840.1.181287.3.579.2. 727 1960 Unknown [id number] 2.16.840.1.322775.3.579.2. 1259 1960 Unknown [id number] 2.16.840.1.992954.3.579.2. 1259 1959 Self-pay [id number] 1959 Unknown [id number] Social History Date Type Detail Facility Start: 07-07-2023 End: 03-11-2025 Current smoker Current smoker [facility] Work Phone: Comment on above: 2 ppd X 44 yrs, curr ently 4 cig day(2021); Start: 07-07-2023 End: 03-04-2025 Tobacco smoking status NHIS Smokes tobacco daily [facility] Work Phone: History of tobacco use Cigarette Smoker [facility] Work Phone: Start: 07-07-2023 End: 03-11-2025 Tobacco use panel [facility] Start: 1960 Sex Assigned At Not on file [facility] Work Phone: Start: 07-02-2023 End: 07-12-2023 Exposure to SARS-CoV-2 (event) Not sure [facility] Start: 05-14-2024 Tobacco smoking status Light t obacco smoker (finding) [facility] Tobacco smoking status Never [facility] Start: 06-23-2024 End: 07-03-2024 Exposure to SARS-CoV-2 (event) Unable to assess [facility] Work Phone: Start: 03-04-2025 Tobacco use and exposure Smokeless tobacco non-user [facility] Start: 03-04-2025 End: 03-11-2025 Alcoholic beverage intake Ex-drinker (finding) [facility] Functional Status Date Assessment Result Facility 05-14-2024 Functional Status N/A [facility] Clinical Notes 03-05-2021 to 03-11-2025 Carri Mckeon, [...] see him PRN. documented in this encounter [facility] 03-04-2025 History of Present illness Narrative [...] week for recheck documented in this encounter [facility] 11-30-2024 Note [place] [facility] Subjective Mike Lopez is a [...] heart failure (CMS/HCC) Coronary artery disease involving [place] coronary artery of [place] heart without angina pectoris Impotence Chronic obstructive [...] Yes Types: Marijuana Comment: last use 08/08 [facility] Mike is seen for 6 month [...] (E (more content not included)... [facility] 12-18-2024 Note Subjective Patient ID: Mike Lopez [...] hour(s)). No follow-ups on file. [facility] 08-10-2024 Note with call back number given. [facility] 08-10-2024 Note Patient: Mike adam Procedure Summary Date: 08/10/24 Room / Location: [facility] OPERATING ROOM 01 / [facility] Operating Room Anesthesia Start: 1351 Anesthesia Stop: [...] notable events for this encounter. [facility] 08-10-2024 Note Airway Date/Time: 08/10/2024 1:59 PM Urgency: elective Airway not difficult General Information and Staff Patient location during procedure: OR Anesthesiologist: Freeman Ramirez MD Resident/ANIMATION CAMERA OPERATOR/CAA: JONN Mclaughlin Performed: resident/ANIMATION CAMERA OPERATOR/CAA Indications and Patient Condition Indications for airway [...] of other approaches attempted: 0 [facility] 08-10-2024 Note Patient: Mike adam Procedure Information Date/Time: 08/10/24 1430 Procedure: LAPAROSCOPIC CHOLECYSTECTOMY WITH INTRAOPERATIVE CHOLANGIOGRAM Location: [facility] OPERATING ROOM 01 / [facility] Operating Room Surgeons: Denice Moreno MD Relevant Problems Cardio (+) Chronic systolic congestive heart failure (CMS/HCC) (+) Coronary artery disease involving [place] coronary artery of [place] heart without angina pectoris Endo (+) Hypothyroidism Pulmonary (+) Centrilobular emphysema (CMS/HCC) (+) Chronic obstructive lung disease (CMS/HCC) Expand All Collapse All [place] [facility] - [facility] Subjective Mike Lopez is a [...] heart failure (CMS/HCC) Coronary artery disease involving [place] coronary artery of [place] heart without angina pectoris Impotence Chronic obstructive [...] with CAA. Additional Equipment Requests [facility] 08-10-2024 Note Relevant Hx: CAD, CH F Course: stable, controlled Daily Update: none Today's Plan: Laparoscopic cholecystectomy, possible cholangiogram Orders from past 72 hours: Full Code; Standing ceFAZolin in dextrose (iso-os) (Ancef) IVPB 2 g Full Code [facility] 07-03-2024 History of Present illness Narrative C/C: [...] OSH). Followed by Dr. Nuñez, Pulmonology, at [facility]. Patient denies any significant change in his [...] discussion of perhaps a cardiomyopathy. No h/o SC. Patient had a prior drinking history many [...] Results: Pathology: N/A Imagin06/12/24 CT Chest from [facility] was personally reviewed Assessment/Plan Diagnoses and all orders for this visit: Centrilobular emphysema (Multi) Lung nodule Mike Lopez is a 63 y.o. male with a significant history of COPD, moderate to severe, who presents with a lateral left upper lobe 1.[address] guided bx was non-diagnostic in June 2022. On recent CT from [facility] lesions are stable. Plan for repeat CT chest in [address] Nuñez will order this and have it done at [facility]. Celso Ibarra DO Thoracic & Esophageal Surgery documented in this encounter [facility] Work Phone: 06-26-2024 Note Subjective Patient ID: Mike Lopez is a 63 y.o. male who presents for Consult (Mike is here today for consult: Calculus of gallbladder, S/P CT abdomin and pelvis ). HPI 63 years old white male is complaining of right upper quadrant pain since 2000. Patient has COPD, chronic systolic congestive heart failure, coronary artery disease. He was referred to [facility] for symptomatic cholelithiasis. Review of Systems [...] hour(s)). No follow-ups on file. [facility] 05-23-2024 Note Cardiovascular Medic [facility] SUBJECTIVE Chief Complaint Patient presents [...] heart failure (CMS/HCC) Coronary artery disease involving [place] coronary artery of [place] heart without angina pectoris Impotence Chronic obstructive lung disease (CMS/HCC) Hypothyroidism Induration penis plastica Right inguinal hernia Rhinitis, allergic Lung nodule Cigarette nicotine dependence with nicotine-induced disorder Chronic respiratory failure with hypoxia, on home O2 therapy (CMS/HCC) Cholelithiasis without cholecystitis Centrilobular emphysema (CMS/HCC) Past Medical History: Diagnosis Date CAD (coronary artery disease) COPD (chronic obstructive pulmonary disease) (CMS/[facility]) Hypothyroidism Near syncope Systolic heart failure, chronic [...] Final Atrial Rate 12/21/2021 93 BPM Final [place] Interval 12/21/2021 140 ms Final QRS DURATION 12/21/2021 90 ms Final QT Interval 12/21/2021 330 ms Final QTC CALCULATION(BAZETT) 12/21/2021 410 ms Final P [place] 12/21/2021 72 degrees Final R-[place] 12/21/2021 76 degrees Final T Wave [place] 12/21/2021 57 degrees Final Diagnosis 12/21/2021 Final Value:Normal sinus rhythm Normal ECG No previous ECGs available Confirmed by Randolph Chandra ([id number]) on 12/22/2021 8:48:12 AM Blood testing 04/21/2023: Potassium 4.4, BUN 11, creatinine 0.85, LFTs normal, cholesterol 112, HDL 45, triglycerides 44, LDL 58, hemoglobin 14.8, platelets 213. labs- 02/19/22 BUN 11, CR 1.00- nor (more content not included)... [facility] 05-23-2024 Note Pt here for follow u p on chronic systolic heart failure, CAD, COPD. Denies chest pain, SOB palpitations or edema Review of Systems Neurological: Positive for dizziness. [facility] 05-14-2024 Note General Surgery Offi ce/Clinic Note Chief Complaint consultation for cholelithiasis HPI Staff 63 year old male presents on consultation from Jailyn Douglas for cholelithiasis. Patient presented to [facility] ED 03/11 with complaint of worsening RUQ [...] abd pain and cholelithiasis; patient seen at [facility] ED 2 months ago for several day [...] no NSAID use; smokes daily. patient sees Clinical Support Tech yearly, [facility] at [facility], reported for heart failure; and Community Recreation Coordinator, Dr Nuñez; he reports recent appointment; smokes [...] Hyperlipidemia Hypertension Overweight (more content not included)... [place] [facility] Comment on above: Result Comment: Elec [...] in his COPD recently (followed by Dr. Nñuez), still using home O2 intermittently. He reports [...] discussion of perhaps a cardiomyopathy. No h/o SC. Patient had a prior drinking history many [...] order this and have it done at [place]. Celso Ibarra DO Thoracic & Esophageal Surgery documented in this encounter [facility] Work Phone: 06-05-2022 History of Present [...] discussion of perhaps a cardiomyopathy. No h/o SC. Patient had a prior drinking history many years ago.Current smoker, several cigarettes per day down from 2 packs/day. [facility]CT Surgery[facility] Work Phone: 03-05-2021 History of Present [...] discussion of perhaps a cardiomyopathy. No h/o SC. Patient had a prior drinking history many years ago. Current smoker, several cigarettes per day down from 2 packs/day. [facility]-CT Surgery-[place] Work Phone: Evaluation + Plan note Future Appointments Appointment Date:05/17/2024 02:40:00 PM Scheduled Provider:Jailyn Blanc Location:[facility] Appointment Type: Open [facility] General Surgery [place] Evaluation note Diagnosis Cigarette nicotine dependence with nicotine-induced disorder- Primary Chronic respiratory failure with hypoxia, on home O2 therapy (CMS/HCC) Centrilobular emphysema (CMS/HCC) Lung nodule Other diseases of lung, not elsewhere classified documented in this encounter [facility] Work Phone: Evaluation note* Diagnosis Centrilobular emphysema (Multi)- Primary Lung nodule Other diseases of lung, not elsewhere classified documented in this encounter [facility] Work Phone: Evaluation note* Diagnosis Thrombosed external hemorrhoid External thrombosed hemorrhoids documented in this encounter [facility] HealthcareEvaluation note* Diagnosis Thrombosed external hemorrhoid- Primary External thrombosed hemorrhoids documented in this encounter [facility] HealthcareHospital course Narrative No data available for this section [facility] [place] [facility] Discharge instructions No data available for this section [facility] Progress note No data available for this section [facility] Surgery [place] Summary Purpose Family History No Family History [...] section and content) DATE CREATED AUTHOR 12/16/2021 [facility] DATE CREATED AUTHOR AUTHOR'S ORGANIZ ATION 12/28/2021 [facility] DATE CREATED AUTHOR AUTHOR'S ORGANIZ ATION 06/06/2022 [facility] DATE CREATED AUTHOR AUTHOR'S ORGANIZ ATION 07/02/2022 [facility] DATE CREATED AUTHOR AUTHOR'S ORGANIZ ATION 09/28/2022 [facility] DATE CREATED AUTHOR AUTHOR'S ORGANIZ ATION 04/15/2023 [facility] DATE CREATED AUTHOR AUTHOR'S ORGANIZ ATION 05/04/2023 [employer] DATE CREATED AUTHOR AUTHOR'S ORGANIZ ATION 07/09/2024 [facility] DATE CREATED AUTHOR AUTHOR'S ORGANIZ ATION 02/27/2025 [facility] DATE CREATED AUTHOR AUTHOR'S ORGANIZ ATION 03/15/2025 [facility] d[facility] Special[facility] DATE CREATED AUTHOR AUTHOR'S ORGANIZ ATION 03/17/2025 [facility] Care Teams (unrecognized sec tion and content) Trim Die Maker Relationship Specialty Start Date End Date Eloy Bansal MD [address] [place], [place] [id number] PCP - General 05/13/22 Trim Die Maker Relationship Specialty Start Date End Date Eloy Bansal MD [address] [place] [address] PCP - General 05/13/22 Trim Die Maker Relationship Specialty Start Date End Date Eloy Bansal MD [address] [place] [phone] PCP - General Family Medicine 03/04/25 Trim Die Maker Relationship Specialty Start Date End Date Eloy Bansal MD [address] [place] [phone] PCP - General Family Medicine 03/04/25 Reason for Visit (unrecogniz ed section and content) Reason Comments Possible thrombosed hemorrhoid Specialty Diagnoses / Procedures Referred By Jocelyne t Referred To Contact General Surgery Diagnoses Thrombosed external hemorrhoid Procedures [place] OFFICE/OUTPATIENT [facility] 60 MINUTES Jailyn Douglas NP [address] [place] [address] Phone: tel: fax: [address] [place] [address] Phone: tel: fax: Referral ID Status Reason Start Date Expiration Date V isits Requested Visits Authorized [id number] Closed Specialty Services Required 02/28/2025 08/27/2025 1 [...] BE BASED ON THE PRIMARY CLINICAL RECORDS. [employer] provides no warranty or guarantee of the accuracy or completeness of information in this document.
[2025-04-22] MEDS: IPRATROPIUM/ALBUTEROL SULFATE 3 ML AMPUL.NEB IH (18:18)
[2025-04-22] MEDS: MAGNESIUM SULFATE IN WATER 2 GM/50 ML PREMIX IV (18:52)
== END 2025-04-22 20:15 | disposition home or self-care (01) ==
PROVIDERS: Emergency Provider Emergency Medicine; PCP Nurse Practitioner
DX: J45.901 Unspecified asthma with (acute) exacerbation (principal); J44.9 Chronic obstructive pulmonary disease, unspecified; R09.02 Hypoxemia; R06.02 Shortness of breath; F17.210 Nicotine dependence, cigarettes, uncomplicated
CPT/HCPCS: 36415; 71045; 71275; 80053; 83880; 84484; 85007; 85027; 93005; 94640; 96365; 96367; 99285; J0696; J3475; Q9967

== ENCOUNTER 2025-07-18 14:43 | Outpatient (OUT) | payer OTHER, SELFPAY ==
--- OUTSIDE RECORDS SUMMARY | 2024-08-22 09:00 | XMS_ITS ---
Author Organization The [facility] Ma in [place] Address [address] [place] [address] Care Team Providers Care Clip On Sunglasses Inspector Name Role Phone Luiz Sue MD Primary Care Provider Cheri Nuñez Shade Unavailable [phone] REASON FOR VISIT 6m COPD Encounters Encounter Location Date Provider Diagnosis Pulmonary Medicine [place] [address] [place] [address] 08/22/2024 Shade Nuñez Plan Of Treatment No Information Progress Notes * Mike METZGER HDOB:1960 (64 yo M)Acc No.[id number]:08/22/2024 UNLOCKED PROGRESS NOTE Follow Up Patient: Mike HIDALGO :?Shade Nuñez DODOB:1960???Age:63 Y ???Sex:MaleDate:4Phone:[phone]:[address] [place], [place] [address]Pcp:Luiz Sue MD Subjective: * Chief Complaints: * 1 . 6m COPD. * Medical History: Objective: * Vitals: Assessment: Plan: * Treatment: * * Electronic signature of Shade Nuñez DO on 07/18/2025 at 02:47 PM ESTSign off status: PendingVisit Status:?R/S (Rescheduled) * Provider: Antonio Nuñez DO Date: 10/23/2023 Generated for Printing/Faxing/eTransmitting on:?07/18/2025 02:47 PM EST
--- OUTSIDE RECORDS SUMMARY | 2024-10-10 05:30 | XMS_ITS ---
Author Organization The [facility] in [place] Address [address] [place] [address] Care Team Providers Care Codifier Name Role Phone Luiz Sue MD Primary Care Provider Shade De Anda Unavailable [phone] REASON FOR VISIT 6m COPD Encounters Encounter Location Date Provider Diagnosis Pulmonary Medicine [place] [address] [place] [address] 10/10/2024 Shade Nuñez Plan Of Treatment No Information Progress Notes * Robert METZGERh HDOB:1960 (64 yo M)Acc No.[id number]:10/10/2024 UNLOCKED PROGRESS NOTE Follow Up Patient: Mike HIDALGO :?Shade Nuñez DODOB:1960???Age:63 Y ???Sex:MaleDate:10/10/2024Phone:[phone]:[address] [place], [place] [address]Pcp:Luiz Sue MD Subjective: * Chief Complaints: * 1 . 6m COPD. * Medical History: Objective: * Vitals: Assessment: Plan: * Treatment: * * Electronic signature of Shade Nuñez DO on 07/18/2025 at 02:48 PM ESTSign off status: PendingVisit Status:?R/S By O/P (Rescheduled by Office/Provider) * Provider: Antonio Nuñez DO Date: 0 10/10/2024 Generated for Printing/Faxing/eTransmitting on:?07/18/2025 02:48 PM EST
--- OUTSIDE RECORDS SUMMARY | 2025-06-04 19:00 | XMS_ITS ---
Author Organization [facility] in [place] Address [address] [place] [address] Care Team Providers Care Dispatcher Automobile Rental Name Role Phone Luiz Sue MD Primary Care Provider Unavailabl e Provider, Radiology Unavailable [phone] Encounters Encounter Location Date Provider Diagnosis Radiology Main [place] [address] [facility] [address] [place] [address] 06/05/2025 Radiology Provider Plan Of Treatment No Information Progress Notes * Mike METZGER HDOB:1960 (64 yo M)Acc No.[id number]:06/05/2025 UNLOCKED PROGRESS NOTE Progress Note Patient: Mike HIDALGO :?Radiology ProviderDOB:1960???Age:64 Y ???Sex:MaleDate:06/05/2025External Visit ID:[id number]:[phone]: [address] [place] [address]Pcp:Luiz Sue MD Subjective: * Chief Complaints: * * Active Problem List J43.2 Centrilobular emphys veronica Modified On:08/22/2023/U Status:rrueumotvZ36.11Chronic respiratory failure with hypoxia Modified On:08/22/2023/U Status:cpgqduauvJ24.51Long term (current) use of inhaled steroids Modified On:02/21/2023/U Status:zueehhjhiY50.10Coronary artery disease Modified On:08/22/2023/U Status:dwophwikiG12.9Allergic rhinitis Modified On:08/22/2023/U Status:xsxigmqbbE44.22Chronic systolic congestive heart failure Modified On:08/22/2023/U Status:iwbxzfpllI69.219Cigarette nicotine dependence with nicotine-induced disorder Modified On:08/22/2023/U Status:dxtyubhaxC30.8Multiple pulmonary nodules Modified On:08/22/2023/ Status:confirmed * Medical History: Objective: * Vitals: Assessment: Plan: * Treatment: * * Electronic signature of Radiology Provider on 07/18/2025 at 02:48 PM ESTSign off status: PendingVisit Status:?CANC (Cancelled) * Provider: Efrain guzman Provider Date: Generated for Printing/Faxing/eTransmitting on:?07/18/2025 02:48 PM EST
--- OUTSIDE RECORDS SUMMARY | 2025-06-25 08:00 | XMS_ITS ---
Author Organization The [facility] in [place] Address [address] [place] [address] Care Team Providers Care Independent Distributor Name Role Phone Luiz Sue MD Primary Care Provider Cheri Nuñez Shade Unavailable [phone] REASON FOR VISIT 8m F/U - COPD, LDCT Encounters Encounter Location Date Provider Diagnosis Pulmonary Medicine [place] [address] [place] [address] 06/25/2025 Shade Nuñez Plan Of Treatment No Information Progress Notes * Mike METZGER HDOB:1960 (64 yo M)Acc No.[id number]:06/25/2025 UNLOCKED PROGRESS NOTE Follow Up Patient: Mike HIDALGO :?Shadestacie Nuñez DODOB:1960???Age:64 Y ???Sex:MaleDate:06/25/2025Phone:[phone]:[address] [place], [place] [address]Pcp:Luiz Sue MD Subjective: * Chief Complaints: * 1 . 8m F/U - COPD, LDCT. * Medical History: Objective: * Vitals: Assessment: Plan: * Treatment: * * Electronic signature of Shade Nuñez DO on 07/18/2025 at 02:48 PM ESTSign off status: PendingVisit Status:?CANC (Cancelled) * Provider: Antonio Nuñez DO Date: 1 Generated for Printing/Faxing/eTransmitting on:?07/18/2025 02:48 PM EST
--- OUTSIDE RECORDS SUMMARY | 2025-07-16 15:00 | XMS_ITS | Encounter Summary ---
Author Organization [facility] Address [address], [address] [place] [address] Care Team Providers Care Training Developer Name Role Phone Lexie Douglas APRN - [employer]ER Primary Care Provider [phone] Reason for Referral * Imaging (Routine) - OpenSpecialtyDiagnoses / ProceduresReferred By Contact Referred To ContactRadiology Diagnoses Cigarette nicotine dependence with nicotine-induced disorder Encounter for screening for lung cancer Procedures CT LUNG CANCER SCREENING (INITIAL/ANNUAL) CT LUNG CANCER SCREENING (INITIAL/ANNUAL) Shade Nuñez DO [address] [place] [address] [address] [place] [address] Phone: tel: fax: Referral IDStatusReasonStart DateExpiration DateVisits RequestedVisits [id number]/ Reason for Visit * ReasonCommentsFollow-upPatient presents for a follow up for COPD.Patient admits to smoking daily. Patient is using Dulera & Spiriva daily. Patient states his breathing is unchanged since his last visit. Patient wears 1.5L O2 at home. DME: [facility]. Patient is under the care of [facility] Cardiology. 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; Encounter for screening for lung cancer Social History Tobacco UseTypesPacks/DayYears UsedDateSmoking Tobacco: Every DldPuvszpbwmq840 Started: 07/15/1981Smokeless Tobacco: Never Tobacco Cessation:Ready to Q uit: No; Counseling Given: Yes Alcohol UseStandard Drinks/WeekCommentsNot Currently0 (1 standard drink = 0.6 oz pure alcohol)Sex and Gender InformationValueDate RecordedSex Assigned at Male06/13/2025 4:17 PM EDTLegal BzjIwru8910/15/2012 2:57 PM ESTGender IdentityMale 06/13/2025 4:17 PM EDTSexual ZsazjamhvnfQsfkajja65/09/2025 4:17 PM EDTdocumented as of this encounter Last Filed Vital Signs Vital SignReadingTime TakenCommentsBlood Fgoxgroh950/7007/16/2025 3:02 PM EST Gaxuj137907/16/2025 3:02 PM ZQKDxmzvokmasa38.2 ??C (97.1 ??F)07/16/2025 3:02 PM ESTRespiratory Knsx691709/15/2024 3:02 PM ESTOxygen Ukbrglmbmw50%07/16/2025 3:02 PM ESTon room airInhaled Oxygen Concentration--Qsgzyx59.9 kg (156 lb 6.4 oz) 07/16/2025 3:02 PM WJUUxyjlr186.3 cm (5' 11 )07/16/2025 3:02 PM ESTBody Mass Index21.8107/16/2025 3:02 PM ESTdocumented in this encounter Patient Instructions * Patient Instructions* Shade Nuñez DO - 07/16/2025 3:46 PM EST Get labs and CT done. Contact the office with any questions. documented in this encounter Progress Notes * Shade Nuñez DO - 07/16/2025 3:12 PM EST Images from the original note were not included. Date of encounter: 07/16/25 Mike Lopez 1960 (64 y.o.) [address] [place] [id number] Mike Lopez was seen today in the office by me. Below is my assessment and plan of the patient: Assessment & Plan Centrilobular emphysema Prior treatment: Dulera + Spiriva > Symbicort + Spiriva > Trelegy Breathing remains suboptimally controlled, progressively worsening. Exacerbation ~04/22/2025. Already on triple inhaled therapy (ICS/LABA/LAMA). He continues to smoke. Options are somewhat limited. -[place] is currently not covered by managed Medicaid plans -Dupixent - need to check CBC for eosinophils, and if 300 or higher, he would need to have at least2 or more exacerbations within the past 12 months. For now, will check CBC and have him return in 3 months for reassessment. If eosinophils are 300 ormore with another exacerbation, I believe we would have enough data to support prescribing Dupixentwithout a denial. Orders: CBC with Auto Differential; Future albuterol sulfate HFA (PROVENTIL;VENTOLIN;PROAIR) 108 (90 Base) MCG/ACT inhaler; Inhale 2 puffs into the lungs every 4 hours as needed for Shortness of Breath or Wheezing mometasone-formoterol (DULERA) 200-5 MCG/ACT inhaler; Inhale 2 puffs into the lungs in the morning and 2 puffs in the evening. Rinse after use. ipratropium 0.5 mg-albuterol 2.5 mg (DUONEB) 0.5-2.5 (3) MG/3ML SOLN nebulizer solution; Inhale 3 mLs into the lungs every 6 hours tiotropium bromide (SPIRIVA RESPIMAT) 2.5 MCG/ACT AERS inhaler; Inhale 2 puffs into the lungs daily Chronic respiratory failure with hypoxia A gjpy-fk-cuhw encounter was performed with the patient today in order to document continued need for supplemental O2. -Qualifying study: Nocturnal pulse ox 08/01/2023 with SpO2 <89% for 24.4% of sleep time (1:49:52) -Flow & directions: 2L/min at bedtime. -The patient voices adherence to recommended usage: Yes -The patient voices benefit/symptom control on O2: Yes -The patient was counseled patient not begin, restart, or continue smoking due to risk of fire which could result in damage to the O2 tanks & tubing, smoke inhalation and flame damage to the airway, significant gill, property damage, , and potential harm & to bystanders. Additionally, the patient was counseled against beginning, restarting, or continuing to smoke given the unde rlying pulmonary disease that led to the point of requiring O2. -He wants an O2 device to take with him so he can stay overnight somewhere. I am unsure if a portable device would be covered as he has a home concentrator. He did not require any with ambulation - Ioffered to order a 6MW to see if he qualifies for portability, but he declined at this time. He wasadvised to contact his DME for any additional suggestions -This documentation authorizes the renewal, reorder/refill, and replacement of O2 and all associated supplies. Cigarette nicotine dependence with nicotine-induced disorder Discussed smoking cessation. He continues to smoke ~1/4ppd. Explained many times in the past that his breathing may never improve until he quits. He did not request any assistance with smoking cessation today. Orders: CT LUNG CANCER SCREENING (INITIAL/ANNUAL); Future Multiple pulmonary nodules Nodules/GGO unchanged on imaging 06/21/2023, 06/12/2024, and now CTA 04/22/2025. Current Fleischner Society Guidelines recommend monitoring GGO out for 5 years. They will continue to be monitored via annual LDCT. 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 Encounter for screening for lung cancer The patient was evaluated for low-dose CT (LDCT) for lung cancer screening. Current Medicare-accepted eligibility criteria were reviewed. - Age 50-77 years: Patient's age = 64 y.o. - Asymptomatic (no signs or symptoms of lung cancer): Yes - Tobacco Use Smoking status: Every Day Packs/day: 2.00 Years: 2.0 packs/day for 44.0 years (88.0 ttl pk-yrs) Types: Cigarettes Start date: 07/15/1981 Smokeless tobacco: Never Based on the above, he is a candidate for LDCT screening. LDCT screening was strongly recommended. Shared decision-making was made with with the patient who voiced agreement to proceed with LDCT screening. After the LDCT is completed, the findings will be explained to the patient with appropriate recommendations based on those findings. Can cancel LDCT due now (06/2025) and reschedule it for April 2025. Orders: CT LUNG CANCER SCREENING (INITIAL/ANNUAL); Future Planned follow-up: Return in about 3 months (around 10/16/2025) for COPD. Data: Alpha-1 antitrypsin (AAT) -Screening test: 02/21/2023 -Genotype: MM PFT: -Date: 05/23/2024 -Location: [facility] -FEV1/FVC: 49% -FEV1: 36% -FVC: 55% -ISW22-73%: 18% -Bronchodilator response: Positive -RV: 218% -T% -DLCO: 54% -Flow-volume loop: Severe obstruction -Date: 05/21/2022 -Location: [facility] -FEV1/FVC: 42% -FEV1: 32% -FVC: 58% -YEA30-52%: 14% -Bronchodilator response: Positive -RV: 215% -T% -DLCO: 51% -Flow-volume loop: Severe obstruction -Date: 09/14/2018 -Location: [facility] -FEV1/FVC: 48% -FEV1: 40% -FVC: 63% -GZM44-49%: 17% -Bronchodilator response: Positive -RV: 187% -T% -DLCO: 64% -Flow-volume loop: Severe obstruction Subjective: Mike Lopez was previously established with me at [facility] and is now establishing with me at [facility]. He was last seen by me on 10/17/2024. His records from [facility] were reviewed. Patient states his breathing is poor, relatively unchanged. He admits to an exacerbation mid-April 2025, went to [facility] ER. A CTA Chest was done on 04/22/2025 - I reviewed the report. There are some scattered GGO that are unchanged from 06/21/2023. He was offered to be admitted, but he declined and was treated outpatient. He remains on Dulera and Spiriva with some benefit. Using DuoNeb/albuterol ~5 times a day. HPI Follow-up Additional comments: Patient presents for a follow up for COPD.Patient admits to smoking daily. Patient is using Dulera & Spiriva daily. Patient states his breathing is unchanged since his last visit. Patient wears 1.5L O2 at home. DME: [facility]. Patient is under the care of [facility] Cardiology. Last edited by Harris Haskins MA on 07/16/2025 3:15 PM. Review of systems: Review of Systems Constitutional: Positive for fatigue. Negative for chills, diaphoresis, fever and unexpected weightchange. HENT: Negative for sneezing and sore throat. Respiratory: Positive for cough, shortness of breath and wheezing. Cardiovascular: Negative for chest pain. Exam: BP 128/70 (BP Site: Left Upper Arm, Patient Position: Sitting, BP Cuff Size: Medium Adult) Pulse 92 Temp 97.1 ??F (36.2 ??C) (Infrared) Resp 18 Ht 1.803 m (5' 11 ) Wt 70.9 kg (156 lb 6.4 oz) SpO2 95% Comment: on room air BMI 21.81 kg/m?? Physical Exam HENT: Mouth/Throat: Mouth: Mucous membranes are moist. Pharynx: Oropharynx is clear. Pulmonary: Comments: In no distress. Unlabored breathing. Harsh breath sounds with expiratory wheezes and mildrhonchi. Previously clear to auscultation last visit. Neurological: Mental Status: He is alert and oriented to person, place, and time. Psychiatric: Mood and Affect: Mood normal. Behavior: Behavior normal. Medical history: Past Medical History: Diagnosis Date Allergic rhinitis CAD (coronary artery disease) Centrilobular emphysema Chronic respiratory failure with hypoxia Chronic systolic CHF (congestive heart failure) Cigarette nicotine dependence with nicotine-induced disorder GERD (gastroesophageal reflux disease) History of cholelithiasis HLD (hyperlipidemia) HTN (hypertension) Multiple pulmonary nodules Past Surgical History: Procedure Laterality Date CARDIAC CATHETERIZATION 12/21/2021 CHOLECYSTECTOMY 08/10/2024 CT NEEDLE BIOPSY LUNG PERCUTANEOUS W IMAGING GUIDANCE 06/28/2022 CYST REMOVAL KNEE ARTHROSCOPY Right No Known Allergies Current Outpatient Medications Medication Sig Dispense Refill atorvastatin (LIPITOR) 40 MG tablet Take 1 tablet by mouth every morning metoprolol succinate (TOPROL XL) 25 MG extended release tablet Take 1 tablet by mouth daily ENTRESTO 24-26 MG per tablet Take 1 tablet by mouth 2 times daily aspirin 81 MG EC tablet Take 1 tablet by mouth every morning ascorbic acid (VITAMIN C) 1000 MG tablet Take 1 tablet by mouth daily OXYGEN Inhale 1.5 L/min into the lungs nightly albuterol sulfate HFA (PROVENTIL;VENTOLIN;PROAIR) 108 (90 Base) MCG/ACT inhaler Inhale 2 puffs intothe lungs every 4 hours as needed for Shortness of Breath or Wheezing 18 g 12 mometasone-formoterol (DULERA) 200-5 MCG/ACT inhaler Inhale 2 puffs into the lungs in the morning and 2 puffs in the evening. Rinse after use. 13 g 12 ipratropium 0.5 mg-albuterol 2.5 mg (DUONEB) 0.5-2.5 (3) MG/3ML SOLN nebulizer solution Inhale 3 mLs into the lungs every 6 hours 360 mL 12 tiotropium bromide (SPIRIVA RESPIMAT) 2.5 MCG/ACT AERS inhaler Inhale 2 puffs into the lungs daily 1 each 12 No current facility-administered medications for this visit. There is no immunization history on file for this patient. Social History Tobacco Use Smoking status: Every Day Current packs/day: 2.00 Average packs/day: 2.0 packs/day for 44.0 years (88.0 ttl pk-yrs) Types: Cigarettes Start date: 07/15/1981 Smokeless tobacco: Never Substance Use Topics Alcohol use: Not Currently Family History Problem Relation Age of Onset Cancer Mother Heart Disease Father An electronic signature was used to authenticate this note. -Shade Nuñez DO, PharmD, FACOI documented in this encounter Plan of Treatment DateTypeDepartmentCare Team (Latest Contact Info)Ilhmunhrqny69/17/2026 2:00 PM ESTOffice Visit [facility] [address], [address] [place] [address] Shade Nuñez, DO [address] [place] [address] 3 [place]. F/U COPDNameTypePriorityAssociated DiagnosesOrder ScheduleCBC with Auto DifferentialLabRoutine Centrilobular emphysema (HCC) Expected: 07/16/2025, Expires: 07/16/2026T LUNG CANCER SCREENING (INITIAL/ANNUAL)ImagingRoutine Cigarette nicotine dependence with nicotine-induced disorder Encounter for screening for lung cancer Expected: 04/05/2026, Expires: 07/16/2026documented as of this encounter Visit Diagnoses Diagnosis Centrilobular emphysema- Primary Other emphysema Chronic respiratory failure with hypoxia Chronic respiratory failure Cigarette nicotine dependence with nicotine-induced disorder Unspecified drug-induced mental disorder Multiple pulmonary nodules Other nonspecific abnormal finding of lung field 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
--- OUTSIDE RECORDS SUMMARY | 2025-07-18 14:47 | XMS_ITS | Encounter Summary ---
Author Organization [facility] Address [address], [address] [place] [address] Care Team Providers Care Senior Corporate Strategy Manager Name Role Phone Lexie Douglas APRN - FOOD AND BEVERAGE ASSOCIATE Primary Care Provider [phone]- [phone] Encounter Details DateTypeDepartmentCare Team (Latest Contact Info)Sgewruzbebc32/11/2025bstract [facility] [address] [place] [address] [facility] [address] [address] Social History Tobacco UseTypesPacks/DayYears UsedDateSmoking Tobacco: Every MwiMcdeypbjmq526 Started: 07/15/1981Smokeless Tobacco: NeverAlcohol UseStandard Drinks/Week CommentsNot Currently0 (1 standard drink = 0.6 oz pure alcohol)Sex and Gender InformationValueDate RecordedSex Assigned at DxnkyUois34/09/2025 4:17 PM EDT Legal PbdPzll9610/15/2012 2:57 PM ESTGender MsbnicinYtod23/09/2025 4:17 PM EDT Sexual XkefydsqcfmQyqkposm63/09/2025 4:17 PM EDTdocumented as of this encounter Plan of Treatment DateTypeDepartmentCare Team (Latest Contact Info)Qdlhwjvskyy84/17/2026 2:00 PM ESTOffice Visit [facility] [address] [place] [address] [facility], [place], [address] [place] [address] 3 [place]. F/U COPDdocumented as of this encounter Visit Diagnoses Not on filedocumented in this encounter Care Teams Team MemberRelationshipSpecialtyStart DateEnd Date Lexie Douglas APRN - FOOD AND BEVERAGE ASSOCIATE [address] [place] [address] PCP - Wrptqur91/9/25documented as of this encounter
--- OUTSIDE RECORDS SUMMARY | 2025-07-18 14:48 | XMS_ITS | Clinical Summary ---
Author Organization [employer] [facility] tem Address [id number] [place] [address] Care Team Providers Care Cutter [employer] Rolls Name Role Phone Mel Bansal MD Primary Care Provider [phone] Allergies No known active allergies Medications MedicationSigDispense QuantityRefillsLast FilledStart DateEnd DateStatus albuterol (PROVENTIL HFA;VENTOLIN HFA) 90 mcg/actuation inhaler Inhale 2 puffs every 4 (four) hours as needed.05/14/2021ctive DULERA 200-5 mcg/actuation inhaler Inhale 2 puffs 2 (two) times a day.05/11/2021ctive SPIRIVA RESPIMAT 2.5 mcg/actuation mist Inhale 2 puffs daily.05/10/2021ctive ascorbic acid, vitamin C, (vitamin C) 1000 mg tablet Take 1,000 mg by mouth daily.Active oxygen Inhale continuously.Active multivit-min/ferrous fumarate (MULTI VITAMIN ORAL) Take by mouth.Active Active Problems No known active problems Family History Medical HistoryRelationNameCommentsHeart diseaseFatherCancerMotherOvarian cancer MotherRelationNameStatusCommentsFatherDeceasedMotherDeceased Social History Tobacco UseTypesPacks/DayYears UsedDateSmoking Tobacco: Every DayCigarettes Smokeless Tobacco: Never Comments:6-8 cigarettes a da y Alcohol UseStandard Drinks/WeekCommentsNot Currently0 (1 standard drink = 0.6 oz pure alcohol)ChildcareAnswerDate PydpltzdSvomotczfEexvxwt93/12/2019Employment AnswerDate XcojmiahXtdfkfdiehLscdekd34/12/2019Sex and Gender InformationValue Date RecordedSex Assigned at BirthNot on fileLegal VnlVibn4904/10/2015 12:06 PM EDTGender IdentityNot on fileSexual OrientationNot on file Last Filed Vital Signs Vital SignReadingTime TakenCommentsBlood Sqjgpbst488/6007/20/2021 3:08 PM EST Pulse--Zrhgucxydjo87.3 ??C (97.3 ??F)07/20/2021 3:08 PM ESTRespiratory Rate-- Oxygen Saturation--Inhaled Oxygen Concentration--Etiuzb81.9 kg (169 lb 9.6 oz) 07/20/2021 3:08 PM TNRTlaide548.9 cm (6')07/20/2021 3:08 PM ESTBody Mass Index23 07/20/2021 3:08 PM EST Plan of Treatment Health MaintenanceDue DateLast DoneCommentsDepression Gvpmbepyq18/05/1973Tobacco Ozsvocjhg07/05/1973Adult BMI Apkxwrryk80/05/1979DTaP,Tdap and Td Vaccines (1 - Tdap)11/08/1979Zoster (Shingles) Vaccine (1 of 2)2010Influenza Vaccine 05/06/2025RSV ( or age 60+ yrs) (1 - 1-dose 75+ series)11/08/2035 Medical Devices Not on file Insurance Care Teams Team MemberRelationshipSpecialtyStart DateEnd Mel Bansal MD PCP - GeneralFamily Medicine05/08/21
--- OUTSIDE RECORDS SUMMARY | 2025-07-18 14:48 | XMS_ITS | Patient Health Record ---
Author Organization [facility] in [place] Address [address] [place] [address] Care Team Providers Care Content Curator Name Role Phone Luiz Sue MD Primary Care Provider Unavailabl e Provider, Radiology Unavailable [phone] Shade Nuñez Unavailable [phone] Allergies No Known Allergies Reason For Referral No Information Medications Medication SIG (Take, Route, Frequency, Duration) Notes Start Date End Date Status Dulera 200-5 MCG/ACT 2 puffs Inhalation BID; Duration: 90 days Rinse after use ActiveIpratropium-Albuterol 0.5-2.5 (3) MG/3ML 3mL Inhalation QID; Duration: 30 days Dispense 120 ampules ActiveAspirin 81 MG1 tablet Orally Once a dayActiveAlbuterol Sulfate HFA 108 (90 Base) MCG/ACT2 puffs as needed for SOB Inhalation Q4H; Duration: 90 daysActive Entresto 24-26 MG1 tablet Orally Twice a dayActiveAtorvastatin Calcium 40 MG1 tablet Orally Once a dayActiveSpiriva Respimat 2.5 MCG/ACT2 puffs Inhalation QD; Duration: 90 daysActiveMeclizine HCl 25 MG1 tablet as needed for dizziness Orally every 6 hours; Duration: 30 daysActiveMetoprolol Succinate ER 25 MG1 tablet Orally Once a dayActive Social History Tobacco Use: Social History Observation Description Date Details (start date - stop date) Current Smoker NA - NA Tobacco Control (Standard) Question Answer Notes Tobacco use: Current every day smoker Additional Findings: Tobacco userLight cigarette smoker (1-9 cigs/day) Problems Problem Type SNOMED Code ICD Code Onset Dates Problem Status W/U Status Risk Notes Problem Centrilobular emphysema (30908591) Centri lobular emphysema (J43.2) ActiveconfirmedDulera + Spiriva > Symbicort + Spiriva > TrelegyProblemChronic respiratory failure (54328672)Chronic respiratory failure with hypoxia (J96.11) ActiveconfirmedProblemLong-term current use of inhaled steroid (983591468)longterm (current) use of inhaled steroids (Z79.51)ActiveconfirmedProblemCoronary artery disease (67619755)Coronary artery disease (I25.10)ActiveconfirmedProblem Allergic rhinitis (04379200)Allergic rhinitis (J30.9)ActiveconfirmedProblem Chronic systolic heart failure (556190585)Chronic systolic congestive heart failure (I50.22)ActiveconfirmedProblemMental disorder caused by drug (708349110) Cigarette nicotine dependence with nicotine-induced disorder (F17.219)Active ffxjqzpna8qpf x 44 years minimumProblemMultiple pulmonary nodules (628841703) Multiple pulmonary nodules (R91.8)Activeconfirmed Vital Signs Heart Rate 101 /min 10/17/2024 Voolmskwqwt78.9 degrees Djwjqfufid54/12/2025Respiratory Rate18 /min10/17/2024 Bstqssaf36 %10/17/2024lood pressure yihprgckr20 mm Hg10/17/20248364Mxjdfw31 in 10/17/2024lood pressure cvbnijar013 mm Hg10/17/20244748Zvpfve759.0 lbs10/17/2024MI 23.96 kg/m210/17/2024 Encounters Encounter Location Date Provider Diagnosis Pulmonary [facility] [address] [place] [address] 10/17/2024 Shade Nuñez Multiple pulmonary nodules R91.8 ; Centrilobular emphysema J43.2 ; Chronic respiratory failure with hypoxia J96.11 ; Cigarette nicotine dependence with nicotine-induced disorder F17.219 ; Encounter for screening for malignant neoplasm of respiratory organs Z12.2 and 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 None identified on 06/12/2024. 10/17/2024entrilobular emphysema (ICD-10 - J43.2)Dulera + Spiriva > Symbicort + Spiriva > Trelegy Doing okay on Dulera + Spiriva. Continues to use albuterol up to 5 times a day. Paul discussion that his breathing will unlikely improve until he stops smoking, which he acknowledged. Continue current treatment. 10/17/2024hronic respiratory failure with hypoxia (ICD-10 - J96.11) Flhp-ik-vxvo encounter performed with the patient to document [...] it is not arias to begin, restart, orcontinue smoking given the underlying pulmonary disease that led to the point of requiring O2.-Recommendations: Continue using O2 @ HS. 10/17/2024igarette nicotine dependence with nicotine-induced disorder (ICD-10 - F17.219)2ppd x 44 years minimum No significant change in his smoking habits. Continues to smoke ~6 cigarettes a day. He voiced he knows he should stop. He will try to work on it. LDCT will be due 06/2025. 10/17/2024[facility] for screening for malignant neoplasm of respiratory [...] smoking cessation/continued tobacco abstinence. LDCT due 06/2025. 10/17/2024Long term (current) use of inhaled steroids (ICD-10 - Z79.51) Patient was counseled to rinse & gargle with water after inhaled corticosteroid use. Plan Of Treatment Future Test Test Name Order Date CT Chest Low Dose for Screening* 025 Insurance Providers Payer Name Payer Address Payer Phone Subscriber Number Group Number Insured Name Patient Relationship to Insured Coverage Start Date Coverage End Date [employer] [place] [employer] [address] [place] [address] [id number] Javad Lopezelf - patient is the [id number] 2022 Medical (General) History Medical History History ICD Code Centrilobular emphysema J43.2 Multiple pulmonary nodules R91.8 Chronic respiratory failure with hypoxia J96.11 Allergic rhinitis J30.9 Coronary artery disease I25.10 Chronic systolic congestive heart failur e I50.22 Hypothyroidism E03.9 Cigarette nicotine dependence with nicot ine-induced disorder F17.219 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
--- OUTSIDE RECORDS SUMMARY | 2025-07-18 14:48 | XMS_ITS | Clinical Summary ---
Author Organization [facility] Address [address] [place] [address] Phone Care Team Providers Care Specialist Managers Name Role Phone Mel Bansal MD Primary Care Provider [phone] Allergies No known active allergies Medications MedicationSigDispense QuantityRefillsLast FilledStart DateEnd DateStatus tiotropium (Spiriva Respimat) 2.5 mcg/actuation inhaler Inhale 2 puffs once daily.Active sacubitriL-valsartan (Entresto) 24-26 mg tablet Take 1 tablet by mouth once daily.Active mometasone-formoterol (Dulera) 200-5 mcg/actuation inhaler Inhale 2 puffs 2 times a day.Active metoprolol succinate XL (Toprol-XL) 25 mg 24 hr tablet Take 1 tablet (25 mg) by mouth once daily.Active meclizine (Antivert) 25 mg tablet Take by mouth. TAKE DIRECTED.Active ipratropium-albuteroL (Duo-Neb) 0.5-2.5 mg/3 mL nebulizer solution Take 3 mL by nebulization every 4 hours if needed.Active empagliflozin (Jardiance) 10 mg Take 1 tablet (10 mg) by mouth once daily.Active atorvastatin (Lipitor) 40 mg tablet Take 1 tablet (40 mg) by mouth once daily.Active aspirin 81 mg EC tablet Take 1 tablet (81 mg) by mouth once daily.Active ascorbic acid (Vitamin C) 1,000 mg tablet Take 1 tablet (1,000 mg) by mouth once daily.Active albuterol (ProAir HFA) 90 mcg/actuation inhaler Inhale 2 puffs every 4 hours if needed.Active Active Problems ProblemNoted DateDiagnosed DateCAD (coronary artery disease)07/10/2023 Centrilobular vzunbdltz33/05/2023holelithiasis without ervdbrjneqvcg75/05/2023 Chronic respiratory failure with hypoxia, on home O2 kdzjbuo6407/10/2023igarette nicotine dependence with nicotine-induced ebrshkcg84/05/2023Hypothyroid 07/10/2023Lung bhrrzy6707/10/2023Overt chronic systolic congestive heart failure 07/10/2023Rhinitis, lllhmyxt05/05/2023 Family History Medical HistoryRelationNameCommentscardiac disorderFathermalignant neoplasm MotherRelationNameStatusCommentsFatherAliveMother Social History Tobacco UseTypesPacks/DayYears UsedDateSmoking Tobacco: Every DayCigarettes Tobacco Cessation:Ready to Q uit: Not Asked; Counseling Given: Not Answered Sex and Gender InformationValueDate RecordedSex Assigned at BirthNot on file Legal QzqUoil63/26/2022 2:48 PM ESTGender IdentityNot on fileSexual Orientation Not on file Last Filed Vital Signs Vital SignReadingTime TakenCommentsBlood Exqhdauy258/6909 10:53 AM EDT Nbcis23545/08/2022 10:53 AM HGUSkivzvardka04.2 ??C (97.1 ??F)05/13/2022 10:53 AM EDTRespiratory Yjwj852005/13/2022 10:53 AM EDTOxygen Clvimvnufj94%05/13/2022 10:53 AM EDTInhaled Oxygen Concentration--Unbjbd39 kg (169 lb 12.1 oz)06/28/2022 9:45 AM QXVFergqm070.8 cm (5' 11.97 )06/28/2022 9:45 AM EDTBody Mass Index23.04 06/28/2022 9:45 AM EDT Plan of Treatment Health MaintenanceDue DateLast DoneCommentsCT Fqcpqzmsxbqe56/05/1961Colonoscopy 1Colorectal Cancer Eohdqefgg40/05/1961reatinine Level1960 Asjsvoggkkgihe02/05/1961FIT-DNA (Cologuard)1960FIT1960HIV Screening 1960ipid Panel03/05/1961Potassium Level1960 5686Rtghsceftrzau79/05/1961 TSH Level1960Yearly Adult Xisxurde06/05/1961MMR Vaccines (1 of 1 - Standard series)1961Hepatitis C Nwbyjxtlz03/05/1979Pneumococcal Vaccine (1 of 2 - PCV)11/08/1979DTaP/Tdap/Td Vaccines (1 - Tdap)1982PSA Prostate Cancer Lmfnzilii50/05/2011RSV High Risk: (Elderly (60+) or Population) (1 - Risk 50-74 years 1-dose series)2010Zoster Vaccines (1 of 2)2010 Influenza Vaccine (#1)5COVID-19 Vaccine (1 - season)2025 Diabetes Xadhxgurn37HIB VaccinesAged OutNo longer eligible based on patient's age to complete this topicHPV VaccinesAged OutNo longer eligible based on patient's age to complete this topicHepatitis A VaccinesAged OutNo longer eligible based on patient's age to complete this topicHepatitis B VaccinesAged OutNo longer eligible based on patient's age to complete this topic IPV VaccinesAged OutNo longer eligible based on patient's age to complete this topicMeningococcal VaccineAged OutNo longer eligible based on patient's age to complete this topicRotavirus VaccinesAged OutNo longer eligible based on patient's age to complete this topic Insurance Care Teams Team MemberRelationshipSpecialtyStart DateEnd Date Mel Bansal MD [address] [facility] [place] [address] [facility]05/13/22
--- OUTSIDE RECORDS SUMMARY | 2025-07-18 14:48 | XMS_ITS | Clinical Summary ---
Author Organization [facility] Address [address] [place] [address] Care Team Providers Care Sales Floor Team Leader Name Role Phone Unavailable Primary Care Provider Unavailabl e Social History Tobacco UseTypesPacks/DayYears UsedDateSmoking Tobacco: Never AssessedSex and Gender InformationValueDate RecordedSex Assigned at BirthNot on fileLegal Sex Male08/06/2012 9:51 AM ESTGender IdentityNot on fileSexual OrientationNot on file Plan of Treatment Health MaintenanceDue DateLast DoneCommentsAnxiety Evtcwhjva24/05/1979Depression Laretcdfp05/05/1979HIV Rhgrfebcr87/05/1979Hepatitis C Koorutgmk05/05/1979 DTaP,Tdap,Td Vaccine (1 - Tdap)11/08/1979Lipid Yzikbmvfy23/05/1996CT Ixhfxfcnhbnm05/05/2006Cologuard (FIT-DNA)11/07/20053545Zguvcorlkbn85/05/2006 Colorectal Cancer Sybgdecmo92/05/2006Diabetes Wujjvptkz83/05/2006Fecal Occult Blood2005Prostate Cancer Screening Rhrbscctyq72/05/2006Sigmoidoscopy 2005Pneumococcal Vaccine: 50+ (1 of 1 - PCV)2010Shingrix Vaccine (1 of 2)2010Covid-19 Vaccine (1 - 2024- season)2025Influenza Vaccine (#1)2025RSV Vaccine (1 - 1-dose 75+ series)11/08/2035 Insurance
--- OUTSIDE RECORDS SUMMARY | 2025-07-18 14:49 | XMS_ITS | Clinical Summary ---
Author Organization [facility] Address [address], [address] [place] [address] Care Team Providers Care Teletype Or Varitype Keyboard Operator Name Role Phone Lexie Douglas APRN - MARYANNE Primary Care Provider [phone]- [phone] Allergies No known active allergies Medications MedicationSigDispense QuantityRefillsLast FilledStart DateEnd DateStatus atorvastatin (LIPITOR) 40 MG tablet Take 1 tablet by mouth every morningActive metoprolol succinate (TOPROL XL) 25 MG extended release tablet Take 1 tablet by mouth dailyActive ENTRESTO 24-26 MG per tablet Take 1 tablet by mouth 2 times dailyActive aspirin 81 MG EC tablet Take 1 tablet by mouth every morningActive ascorbic acid (VITAMIN C) 1000 MG tablet Take 1 tablet by mouth dailyActive OXYGEN Inhale 1.5 L/min into the lungs nightlyActive albuterol sulfate HFA (PROVENTIL;VENTOLIN;PROAIR) 108 (90 Base) MCG/ACT inhaler Indications:Centrilobular emphysema (HCC)Inhale 2 puffs into the lungs every 4 hours as needed for Shortness of Breath or Wheezing 18 g 5Active mometasone-formoterol (DULERA) 200-5 MCG/ACT inhaler Indications:Centrilobular emphysema (HCC)Inhale 2 puffs into the lungs in the morning and 2 puffs in the evening. Rinse after use. 13 g 5Active ipratropium 0.5 mg-albuterol 2.5 mg (DUONEB) 0.5-2.5 (3) MG/3ML SOLN nebulizer solution Indications:Centrilobular emphysema (HCC)Inhale 3 mLs into the lungs every 6 hours 360 mL 5Active tiotropium bromide (SPIRIVA RESPIMAT) 2.5 MCG/ACT AERS inhaler Indications:Centrilobular emphysema (HCC)Inhale 2 puffs into the lungs daily 1 each 5Active albuterol sulfate HFA (PROVENTIL;VENTOLIN;PROAIR) 108 (90 Base) MCG/ACT inhaler Inhale 2 puffs into the lungs every 4 hours as needed for Shortness of Breath or Thaxjoem75/11/2025Discontinued(REORDER) ipratropium 0.5 mg-albuterol 2.5 mg (DUONEB) 0.5-2.5 (3) MG/3ML SOLN nebulizer solution Inhale 3 mLs into the lungs every 4 hours as ylvaqv7007/16/2025Discontinued (REORDER) DULERA 200-5 MCG/ACT inhaler Inhale 2 puffs into the lungs in the morning and 2 puffs in the evening. 07/16/2025Discontinued(REORDER) SPIRIVA RESPIMAT 2.5 MCG/ACT AERS inhaler Inhale 2 puffs into the lungs daily07/16/2025Discontinued(REORDER) Active Problems ProblemNoted DateDiagnosed DateCentrilobular emphysema Assessment & Plan (07/16/2025 4:28 PM EST): Prior treatment: Dulera + Spiriva > Symbicort + Spiriva > Trelegy Breathing remains suboptimally controlled, progressively worsening. Exacerbation ~04/22/2025. Already on triple inhaled therapy (ICS/LABA/LAMA). He continues to smoke. Options are somewhat limited. -Ohtuvayre is currently not covered by managed Medicaid [...] Inhale 2 puffs into the lungs daily Multiple pulmonary nodules Assessment & Plan (07/16/2025 4:28 PM EST): Nodules/GGO unchanged on imaging 06/21/2023, 06/12/2024, and now CTA 04/22/2025. Current Fleischner Society Guidelines recommend monitoring GGO out for 5 years. They will continue to be monitored via annual LDCT. Chronic respiratory failure with hypoxia Assessment & Plan (07/16/2025 4:28 PM EST): A pvux-vf-tjzl encounter was performed with the patient today [...] supplies. Cigarette nicotine dependence with nicotine-induced disorder Assessment & Plan (07/16/2025 4:28 PM EST): Discussed smoking cessation. He continues to smoke ~1/4ppd. Explained many times in the past that his breathing may never improve until he quits. He did not request any assistance with smoking cessation today. Orders: CT LUNG CANCER SCREENING (INITIAL/ANNUAL); Future Encounters DateTypeDepartmentCare VanaEwxtdjqlbvc38/11/2025 3:00 PM ESTOffice Visit [facility] [address] [facility] [address] [place] [address] Shade Nuñez DO Centrilobular emphysema (Primary Dx); Chronic respiratory failure with hypoxia; Cigarette nicotine dependence with nicotine-induced disorder; Multiple pulmonary nodules; senior living (current) use of inhaled steroids; Encounter for screening for lung qilfgk1207/16/2025bstract [facility] Pulmonology [address], [address] [place] [address] Shade Nuñez DO 06/14/2025bstract [facility] Pulmonology [address] [place] [address] Shade Nuñez DO from Last 3 Months Family History Medical HistoryRelationNameCommentsHeart DiseaseFatherCancerMotherRelationName StatusCommentsFatherMother Social History Tobacco UseTypesPacks/DayYears UsedDateSmoking Tobacco: Every GkqKwcvsiapay554 Started: 07/15/1981Smokeless Tobacco: Never Tobacco Cessation:Ready to Q uit: No; Counseling Given: Yes Alcohol UseStandard Drinks/WeekCommentsNot Currently0 (1 standard drink = 0.6 oz pure alcohol)Sex and Gender InformationValueDate RecordedSex Assigned at Male06/13/2025 4:17 PM EDTLegal TkkIthf1810/15/2012 2:57 PM ESTGender IdentityMale 06/13/2025 4:17 PM EDTSexual GhunmlqkcdtNoceukzk85/09/2025 4:17 PM EDT Last Filed Vital Signs Vital SignReadingTime TakenCommentsBlood Jzsxymth971/7007/16/2025 3:02 PM EST Jnxwq799407/16/2025 3:02 PM BDTBswkxlxltmn51.2 ??C (97.1 ??F)07/16/2025 3:02 PM ESTRespiratory Wxbg142709/15/2024 3:02 PM ESTOxygen Aouilkdmwy51%07/16/2025 3:02 PM ESTon room airInhaled Oxygen Concentration--Exaucv25.9 kg (156 lb 6.4 oz) 07/16/2025 3:02 PM DKLBacxlf038.3 cm (5' 11 )07/16/2025 3:02 PM ESTBody Mass Index21.8107/16/2025 3:02 PM EST Plan of Treatment DateTypeDepartmentCare Team (Latest Contact Info)Dpikqnzfmxz62/17/2026 2:00 PM ESTOffice Visit [facility] Pul[facility]ology [address] [facility] [address] [facility] [address] [place] [address] Shade Nuñ[place] [address] [place] [address] [address] [place] [id number] 3 [place]. F/U COPDHealth MaintenanceDue DateLast SuteVmecpxynUobxyf29/05/1971 Depression Dqtvml1011/07/1972HIV merdza9011/08/1975Hepatitis C kuxexf9911/07/1978 DTaP/Tdap/Td vaccine (1 - Tdap)11/08/1979Pneumococcal 50+ years Vaccine (1 of 2 - PCV)11/08/19792803Utqtuvvkhxu07/05/2006Colorectal Cancer Xuatkm0211/07/2005FIT/FOBT: Average risk2005Fecal-DNA (Cologuard): Average risk2005 Sigmoidoscopy/CT btsewfudldch83/05/2006Shingles vaccine (1 of 2)2010 Respiratory Syncytial Virus (RSV) or age 60 yrs+ (1 - Risk 60-74 years 1-dose series)2020ung Cancer Screening &/or Hjlfwdblzi73/24/2023 06/28/2022Flu vaccine (#1)5COVID-19 Vaccine ( season) 2025Hepatitis A vaccineAged OutNo longer eligible based on patient's age to complete this topicHepatitis B vaccineAged OutNo longer eligible based on patient's age to complete this topicHib vaccineAged OutNo longer eligible based on patient's age to complete this topicMeningococcal (ACWY) vaccineAged OutNo longer eligible based on patient's age to complete this topicMeningococcal B vaccineAged OutNo longer eligible based on patient's age to complete this topic Polio vaccineAged OutNo longer eligible based on patient's age to complete this topic Insurance Care Teams Team MemberRelationshipSpecialtyStart DateEnd Date Lexie Douglas APRN - NP [address] [place] [address] PCP - Xnqqgzp92/9/25
--- OUTSIDE RECORDS SUMMARY | 2025-07-18 14:49 | XMS_ITS | CCD ---
Author Organization [facility] Care Team Providers Care Deputy Probation Officer Name Role Phone DIPESH, SANIYA M Admitting [...] URIOSTEGUI, TAMIE Consulting Unavailable NIMISHA, DR ELOY aClero Primary Care Unavailable SAMSA, TYSHAWN Attending Unavailable [...] Care Provider Jailyn Douglas Primary Care Physician CELSO IBARRA Attending Unavailable ELOY BANSAL Primary Care Unavailable CELSO IBARRA Attending Unavailable ELOY BANSAL Primary Care Unavailable Deyvi, CINDER PITMAN Jailyn L Referring Unavailable NILLBenji Attending Unavailable Deyvi, CINDER PITMAN Jailyn L Attending Unavailable Deyvi, CINDER PITMAN Jailyn Seymour Attending Unavailable Deyvi, CINDER PITMAN Jailyn Seymour Attending Unavailable Deyvi, CINDER PITMAN Jailyn Seymour Attending Unavailable Eloy Bansal MD Primary Care Provider [phone] CARRI MCKEON Attending Unavailable DEYVI JAILYN Referring Unavailable CARRI MCKEON Attending Unavailable DENICE MORENO Attending Unavailable DENICE MORENO Admitting Unavailable DENICE MORENO Attending Unavailable DENICE MORENO Referring Unavailable BULL LEARY Attending Unavailable CARLEEN VALDEZ Attending Unavailable DENICE MORENO Attending Unavailable Allergies Allergy ClassificationReported Allergen(s)Allergy TypeDate of OnsetReaction(s) Facility (1 source)No Known Medication Allergies; Translations: [No Known Medication Allergies]Propensity to adverse reactions (disorder)[facility] Repository Medications Current Medications MedicationDrug Class(es)DatesSig (Normalized)Sig (Original)[id number] 200 actuat albuterol 0.09 mg/actuat metered dose inhaler (9 sources)beta2-Adrenergic Agonisttake 2 puff(s) by mouth every four hours as neededalbuterol HFA 90 mcg/act inhaler INHALE 2 PUFFS BY MOUTH EVERY 4 HOURS NEEDED FOR SHORTNESS OF BREATH Activetake 2 puff(s) by inhalation every four hoursalbuterol (ProAir HFA) 90 mcg/actuation inhaler Inhale 2 puffs every 4 hours if needed. Activetake 2 puff(s) by inhalation every four hours as needed ProAir HFA 108 (90 Base) MCG/ACT AERS INHALE 2 PUFFS EVERY 4 HOURS NEEDED Quantity: 0 Refills: 0Ordered: 13-May-2022 DO ActiveAlbuterol (Eqv-Ventolin HFA) 90 mcg/inh inhalation aerosol (1 source)Start: 55-53-5369bduc 2 puff(s) by mouth every four hours as needed Albuterol (Eqv-Ventolin HFA) 90 mcg/inh inhalation aerosol INHALE 2 PUFFS BY MOUTH EVERY 4 HOURS ASNEEDED FOR SHORTNESS OF BREATH Start Date: 04/19/24 Status: Orderedalbuterol 0.833 mg/ml / ipratropium bromide 0.167 mg/ml inhalation solution (7 sources)Anticholinergic, beta2-Adrenergic AgonistStart: 11-77-2612oigw 1 dose by inhalation four times dailyalbuterol-ipratropium Inh Judi 3 mL UD INHALE 1 VIAL VIA NEBULIZER 4 TIMES DAILY Start Date: 04/19/24Status: Orderedtake 3 mL by inhalation every four hours as neededipratropium-albuteroL (Duo-Neb) 0.5-2.5 mg/3 mL nebulizer solution Take 3 mL by nebulization every 4 hours if needed. Activetake 1 [IU] by inhalation every four hours as neededIpratropium-Albuterol 0.5-2.5 (3) MG/3ML Inhalation Solution USE 1 UNIT DOSE IN NEBULIZER EVERY 4 HO URS NEEDED. Quantity: 0 Refills: 0 Ordered: 13-May-2022 DO Activeascorbic acid 1000 mg oral tablet (6 sources)Vitamin Ctake 1 tablet by mouth once dailyascorbic acid (Vitamin C) 1,000 mg tablet Take 1 tablet (1,000 mg) by mouth once daily. Activeaspirin 81 mg delayed release oral tablet (10 sources)Platelet Aggregation Inhibitor, Nonsteroidal Anti-inflammatory Drug Start: 80-47-2091gtoj 1 mg by mouth once dailyaspirin 81 mg Oral EC Tab mg tab(s), Oral, Daily, Refills(s) 0 Start Date: 04/19/24 Status: Ordered atorvastatin 40 mg oral tablet (10 sources)HMG-CoA Reductase InhibitorStart: 04-19-2024 End: 06-48-6968kldv 1 tablet by mouth in the morningatorvastatin (Lipitor) 40 MG tablet Take 40 mg by mouth in the morning. 04/19/2024 11/30/2025 ActiveDulera 200 mcg-5 mcg/inh inhalation aerosol (1 source)Start: 37-06-2588pvfc 2 puff(s) by mouth twice dailyDulera 200 mcg-5 mcg/inh inhalation aerosol INHALE 2 PUFFS BY MOUTH TWICE DAILY. RINSE MOUTH AFTER USE 30 Start Date: 04/19/24 Status: Orderedempagliflozin 10 mg oral tablet (6 sources)Sodium-Glucose Cotransporter 2 Inhibitortake 1 tablet by mouth once dailyempagliflozin (Jardiance) 10 mg Take 1 tablet (10 mg) by mouth once daily. Activefamotidine 20 mg oral tablet (1 source)Histamine-2 Receptor AntagonistStart: 70-94-4614mphn 1 tablet by mouth twice dailyfamotidine 20 mg Tab TAKE 1 TABLET BY MOUTH TWICE A DAY Start Date: 04/19/24 Status: Xarsvkv05 actuat formoterol fumarate 0.005 mg/actuat / mometasone furoate 0.2 mg/actuat metered dose inhaler (9 sources)Corticosteroid, beta2-Adrenergic Agonisttake 2 puff(s) by mouth twice dailyDulera 200-5 MCG/ACT inhaler INHALE 2 PUFFS BY MOUTH TWICE DAILY. RINSE AFTER USE Activetake 2 puff(s) by inhalation twice dailymometasone-formoterol (Dulera) 200-5 mcg/actuation inhaler Inhale 2 puffs 2 times a day. Active meclizine hydrochloride 25 mg oral tablet (6 sources)Antiemeticmeclizine (Antivert) 25 mg tablet Take by mouth. TAKE DIRECTED. ActiveMeclizine HCl - 25 MG Oral Tablet TAKE DIRECTED. Quantity: 0 Refills: 0 Ordered: 13-May-2022 DO Acfusb23 hr metoprolol succinate 25 mg extended release oral tablet (10 sources)beta-Adrenergic BlockerStart: 39-44-7204xqirixdsgk succinate 25 mg ER Tab 12.5 mg = 0.5 tab(s), Oral, Daily, Refills(s) 0 Start Date: 04/19/24 Status: Orderedtake 1 tablet by mouth once dailymetoprolol succinate XL (Toprol- XL) 25 mg 24 hr tablet Take 1 tablet (25 mg) by mouth once daily. ActiveOxygen (3 sources)oxygen (O2) gas Inhale 1.5 L/min at bedtime Activepantoprazole 40 mg delayed release oral tablet (1 source)Proton Pump InhibitorStart: 35-56-8869mrif 1 tablet by mouth once dailyPantoprazole [address] Tab 40 mg = 1 tab(s), Oral, Daily, # 90 tab(s), Refills(s) 1, [id number], 176, cm, 04/19/24 13:00:00 EDT, Height/Length Dosing, 79, kg, 04/19/24 13:00:00 EDT, Weight Dosing Start Date: 04/19/24 Status: Orderedsacubitril 24 mg / valsartan 26 mg oral tablet (10 sources)Angiotensin 2 Receptor BlockerStart: 11-30-2024 End: 51-17-4079ebhj 0.5 tablet by mouth in the morningsacubitril-valsartan (Entresto) 24-26 MG tablet Take 0.5 tablets by mouth in the morning and 0.5 tab lets in the evening. 11/30/2024 11/30/2025 ActiveStart: 14-47-2213iixr 0.5 tablet by mouth at bedtimeEntresto 24 mg-26 mg oral tablet TAKE 1/2 TABLET BY MOUTH IN THE MORNING AND AT BEDTIME. Start Date: 04/19/24 Status: Orderedtake 1 tablet by mouth once dailysacubitriL-valsartan (Entresto) 24-26 mg tablet Take 1 tablet by mouth once daily. Npeuzb61 actuat tiotropium 0.0025 mg/actuat inhalation spray (10 sources)AnticholinergicStart: 06-45-2405mxzz 2 puff(s) by inhalation once dailySpiriva Respimat 60 ACT 2.5 mcg/inh inhalation aerosol INHALE 2 PUFFS INTO THE LUNGS EVERY DAY FOR 30 DAYS Start Date: 04/19/24 Status: Orderedtake 2 puff(s) by inhalation once dailySpiriva Respimat 2.5 MCG/ACT inhaler 2 puffs Daily Activetake 2 puff(s) by inhalation once dailytiotropium (Spiriva Respimat) 2.5 mcg/actuation inhaler Inhale 2 puffs once daily. ActiveSpiriva Respimat 2.5 MCG/ACT Inhalation Aerosol Solution TAKE 2 INHALATIONS DAILY. Quantity: 0 Refil ls: 0 Ordered: 13-May-2022 DO Active Problems Active Problems Problem ClassificationProblemDateDocumented DateEpisodic/ChronicAbdominal pain (2 sources)Right upper quadrant pain; Translations: [Right upper quadrant pain] Onset: 21-38-4335CorbecrsIqnrkry obstructive pulmonary disease and bronchiectasis (18 sources)Centriacinar emphysema; Translations: [Other emphysema]Onset: 37-37-0389EqtdtxoXqlecymlrn heart failure; nonhypertensive (15 sources)Chronic systolic heart failure; Translations: [Chronic systolic heart failure]Onset: 30-01-1827TmcaragUflatanh atherosclerosis and other heart disease (9 sources)Coronary arteriosclerosis; Translations: [Coronary atherosclerosis of unspecified type of vessel, resighini or graft]Onset: 932387-10-8480Kivxkzm Disorders of lipid metabolism (1 source)Alikhezpmwdxko28-94-0085BxamhwaPosgavgbyj disorders (1 source)Gastroesophageal reflux cchgidh66-16-8417MzndqhtWecazpwgo hypertension (1 source)Hypertensive jjnagbat70-40-7653HgyqlhdNybdbals; including migraine (4 sources)Headache; including migraine; Translations: [HEADACHE UNSPECIFIED] Onset: 45-24-8097Aktzf valve disorders (1 source)Rheumatic disorders of both mitral and tricuspid valves; Translations: [RHEUMATIC D/O MITRAL TRICUSPID VALV]Onset: 03-65-8518JkgquicEbrryrlfjrj (6 sources)Thrombosed external hemorrhoids; Translations: [Perianal venous thrombosis]Onset: 917748-54-4399VgvupreeDdoqn lower respiratory disease (4 sources)Multiple nodules of lung; Translations: [Other nonspecific abnormal finding of lung field]EpisodicOther lower respiratory disease (11 sources)Other nonspecific abnormal finding of lung field; Translations: [Other nonspecific abnormal findingof lung field]Onset: 38-54-7256ZfgzuvpwHemmx lower respiratory disease (4 sources)Nodule of lung; Translations: [Solitary pulmonary nodule]Onset: 779711-39-5046RmzmczsvSpxce lower respiratory disease (2 sources)Solitary pulmonary nodule; Translations: [Solitary pulmonary nodule] Onset: 71-07-7428FkzoskjlRiqcv male genital disorders (1 source)ImpotenceOnset: 182094-40-8896NkpxxtfUqfku nutritional; endocrine; and metabolic disorders (1 source)Wtswornlxa34-84-1365PcvwpjntDiurh nutritional; endocrine; and metabolic disorders (1 source)Overweight in adulthood with body mass index of 25 or more but less than 6366-11-9508ZmcohrpiKfmwi upper respiratory disease (6 sources)Allergic rhinitis; Translations: [Allergic rhinitis, cause unspecified]Onset: 030514-15-0357ZnlsyuoUzljnpapmcv failure; insufficiency; arrest (adult) (12 sources)Chronic hypoxemic respiratory failure; Translations: [Chronic respiratory failure]Onset: 781047-89-7860ObblsclKlrfvkm on above:Uses O2 with during heat and humidity;Substance-related disorders (12 sources)Tobacco dependence syndrome; Translations: [Unspecified drug-induced mental disorder]Onset: 432015-03-3398KmygglzSfexqel disorders (6 sources)Hypothyroidism; Translations: [Unspecified acquired hypothyroidism] Onset: 396094-54-9108QjhwhksSshsmjzsoqfm (1 source)CONTACT W/AND (SUSP) EXPOS COVID-19; Translations: [CONTACT W/AND (SUSP) EXPOS COVID-19]Onset: 29-55-9142Jyohcxjbckvv (2 sources)Post-op; Translations: [Post-op]Onset: 08-22-2024 Past or Other Problems Problem ClassificationProblemDateDocumented DateEpisodic/ChronicBiliary tract disease (10 sources)Biliary calculus; Translations: [Calculus of gallbladder without mention of cholecystitis, without mention of obstruction]Onset: 07-10-2023 83-74-4065LzatkvnlUsoctzfqz and vision defects (1 source)Unspecified visual disturbance; Translations: [UNSPECIFIED VISUAL DISTURBANCE]Onset: 82-91-0736ZmijeagrDelhkjrduzk and hemorrhagic disorders (2 sources)Spontaneous ecchymoses; Translations: [Spontaneous ecchymoses]Onset: 90-11-4200YiqgqqzfOpnaeezdff associated with dizziness or vertigo (3 sources)Dizziness and giddiness; Translations: [DIZZINESS AND GIDDINESS] Onset: 08-03-1781OtlxbexeQtenthoylzc chest pain (6 sources)Chest pain, unspecified; Translations: [Other chest pain]Onset: 27-18-2472EqngwzhgBqzau aftercare (1 source)Other penitentiary (current) drug therapy; Translations: [OTH RADIOGRAPHER ANGIOGRAM CURRENT DRUG THERAPY]Onset: 35-31-7624OiuqjephZslqc connective tissue disease (1 source)Pain in arm, unspecified; Translations: [PAIN IN ARM UNSPECIFIED] Onset: 72-74-2976ZtpnaistQobim ear and sense organ disorders (1 source)Tinnitus, unspecified ear; Translations: [TINNITUS UNSPECIFIED EAR] Onset: 66-97-0368HboajbpvQvqwp lower respiratory disease (4 sources)Other forms of dyspnea; Translations: [OTHER FORMS OF DYSPNEA]Onset: 90-11-7444SscnfzuuYdkvf lower respiratory disease (2 sources)Shortness of breath; Translations: [Shortness of breath]Onset: 82-99-9584CwlilskbQevwn screening for suspected conditions (not mental disorders or infectious disease) (1 source)Encounter for screening for malignant neoplasm of respiratory organs; Translations: [ENC SCREEN MALIG NEOPLASM RESP ORGN]Onset: 85-77-6540Posvvbwn Results Test NameValueInterpretationReference SyrqgXnmmttqq44mm 74-64-164303Br informed NormalCleveland Clinic FoundationAmbulatory Visit Summaryon 02-26-2025 Ambulatory Visit SummaryAmbulatory Visit Summary MIKE LOPEZ :1960 Visit Date:02/26/2025 [...] Someone Will Contact You Regarding These Appointments [facility] [place] Referral, Patient choice/referral by family/friend, Surgery, [facility] Surgery-thrombosed hemorrhoid, 02/26/25 13:35:00 EDT, Thrombosed external hemorrhoid Medications What How Much When Instructions Unchanged albuterol (Albuterol (Eqv-Ventolin HFA) 90 mcg/ inh inhalation aerosol) INHALE 2 PUFFS BYMOUTH EVERY 4 HOURS NEEDED FOR SHORTNESS OF BREATH Unchanged albuterol-ipratropium (albuterol-ipratropium Inh Judi 3 mL UD) INHALE 1 VIAL VIA NEBULIZER4 TIMES DAILY Unchanged aspirin (aspirin 81 mg [...] signed up for this yet, please contact [employer] at [phone] to get signed up today. Language Information Language assistance services are available as needed. [facility] Medicine Office/Clinic Noteon 26-67-3917Klnhox Medicine Office/Clinic NoteFajamaica plain [facility] Medicine Office/Clinic Note HPI Staff Patient is [...] will send referral to general surgery at [facility] for further evaluation. will send in cream to shrink hemorrhoid and to help with pain. all questions answered. RTC as needed Ordered: mineral oil/petrolatum/phenylephrine topical, 1 chloé, Rectal, BID, 28 gm, Refill(s) 0, clean affected area before application, [facility] #[id number], 176, cm, 02/26/25 13:26:00 EDT, Height/Length Dosing,72, kg, 02/26/25 13:26:00 EDT, Weight Dosing nitroglycerin, 1 chloé, Rectal, q12hr, 30 gm, Refill(s) 0, wash hands immediately after application, [facility] #[id number], 176, cm, 02/26/25 13:26:00 EDT, Height/Length Dosing, 72, kg, 02/26/25 13:26:00 EDT, Weight Dosing [facility] [place]ulatory Referral 2. BMI 23.0-23.9, adult [...] Use:., 02/26/2025 Family History Family history is negativeSouthern Ohio Medical CenterComment on above: Result Comment: Electronically Signed By: Jailyn Blanc\.br\Date and Time Signed: 02/26/25 14:53 EDTFamily Medicine Office/Clinic Noteon 51-52-6034Gudsfg Medicine Office/Clinic NoteFamily Medicine Office/Clinic Note HPI Staff Mike is [...] day(s), # 7 tab(s), Refills(s) 0, [id number], cm, 01/30/25 14:03:00 EDT, Height/Length Dosing, 74.8, kg, 01/30/25 14:03:00 EDT, Weight Dosing 2. COPD (chronic obstructive pulmonary disease) (J44.9: Chronic obstructive pulmonary disease, unspecified) kenalog given in office Ordered: levofloxacin, 750 mg = 1 tab(s), Oral, Daily, X 7 day(s), # 7 tab(s), Refills(s) 0, [id number], 176, cm, 01/30/25 14:03:00 EDT, Height/Length Dosing, 74.8, kg, 01/30/25 14:03:00 EDT, Weight Dosing 3. BMI 24.0-24.9, adult (Z68.24: Body mass index [BMI] 24.0-24.9, adult) BMI education Ordered: levofloxacin, 750 mg = 1 tab(s), Oral, Daily, X 7 day(s), # 7 tab(s), Refills(s) 0, Pharmacy: [id number], 176, cm, 01/30/25 14:03:00 EDT, Height/Length Dosing, 74.8, kg, 01/30/25 14:03:00 EDT, Weight Dosing 4. Non-smoker (Z78.9: Other specified health status) continue not smoking Ordered: levofloxacin, 750 mg = 1 tab(s), Oral, Daily, X 7 day(s), # 7 tab(s), Refills(s) 0, Pharmacy: [id number], 176, cm, 01/30/25 14:03:00 EDT, Height/Length Dosing, 74.8, kg, 01/30/25 14:03:00 EDT, Weight Dosing Orders: pantoprazole, See Instructions, TAKE 1 TABLET BY MOUTH EVERY DAY, # 90 tab(s), Refills(s) 1, Pharmacy: [id number], 176, cm, 05/17/24 14:44:00 EDT, Height/Length Dosing, 78, kg, 05/17/24 14:44:00EDT, Weight Dosing Follow-up No qualifying data available [...] Use:., 01/30/2025 Family History Family history is negativeSouthern Ohio Medical CenterComment on above: Result Comment: Electronically Signed By: Jailyn Blanc\Date and Time Signed: 01/30/25 14:21 [id number] 37-86-681818Orlriszug echo result from 01/15/2025: MD Bhavna Marinelli MA Please tell him that the cardiac function is relatively stable. I will not make changes at this time and I will see him in follow-up in 1 year. Patient informed.[facility] HospitalOffice Visiton 56-85-7659Ixedgr-up [id number] Mike Lopez 1960 Date Provider Department Center 11/30/2024 Zan-CARLE[facility] VALDEZ [facility] Family History Problem Relation Age of Onset Cancer Mother Family Status - Relation Status Age at Mother Level of Service:08643 [place] OFFICE/OUTPATIENT ESTABLISHED MOD MDM [facility] 98-19-5650Dniosa-up visit [id number] Mike Lopez 1960 Provider Department Center 08/22/2024 Kiera-DENICE MORENO [facility] SURG Second Fl Family History Problem Relation Age of Onset Cancer Mother Family Status - Relation Status Age at Mother Level of Service:80434 [place] POSTOP FOLLOW UP VISIT RELATED TO ORIGINAL PX Reason for Visit and Comments: Post-op [483] - Mike is here today for post op visit: alculus of gallbladder, s/p 08/10/24 LAP CHOLENormalUniversSelect Medical Specialty [facility] Anesthesiaon [id number] Mike Lopez 1960 Provider Department Center 08/10/2024 [id number] DOUGLAS [facility] [place] Medical C Family History Problem Relation Age of Onset Cancer Mother Family Status - Relation Status Age at MotherNormalUniversSelect Medical Specialty Hospital - YoungstownHISTOLOGY - TISSUE EXAMon [id number] AP CASE REPORTNormalUniversSelect Medical Specialty Hospital - YoungstownComment on above:Order Comment: Pre-op diagnosis:Calculus of gallbladder without cholecystitis without obstruction [K80.20]Result Comment: Surgical Pathology Case: [id number] Authorizing Provider: Denice Moreno MD Collected: 08/10/2024 1443 Ordering Location: [facility] Main Operating Room Received: 08/10/2024 1503 Pathologist: Ese Maher MD Specimen: Gallbladder, GALLBLADDERPerformed By: #### [id number] ####[facility] ([facility])[address] [facility], [place] [address]UON AP CLINICAL INFORMATIONNormal [facility] Clinic FoundationComment on above:Order Comment: Pre-op diagnosis:Calculus of gallbladder without cholecystitis without obstruction [K 80.20]Result Comment: Post-Op Diagnoses K80.20 - Calculus of gallbladder without cholecystitis without obstruction [ICD-10-CM]Performed By: #### [id number] ####[facility] ([facility])[address] [facility], [place] [address]TGE AP GROSS DESCRIPTIONA. Gallbladder.Normal [facility] Clinic FoundationComment on above:Order Comment: Pre-op diagnosis:Calculus of gallbladder without cholecystitis without obstruction [K 80.20]Result Comment: Received in formalin labeled with the patient's name Mike Lopez and gallbladder is a 8.3 x 3.3 x 3.1 cm intact gallbladder. The serosa is pink-purple to yellow, smooth and fatty. The hepatic bed is pink- green and slightly roughened. The attached cystic duct is 0.6 cm in length by 0.2 cm diameter, patent, and received closed with a white plastic clip. No periductal lymph node is identified. The lumen contains a moderate amount of green-yellow, viscous bile admixed with a 5.8 x 3.5 x 0.6 cm aggregate of green- brown, smooth to multifaceted calculi. The mucosa is pink-greenand velvety to finely trabeculated with focal denuded areas at the fundus. The wall has an average thickness of 0.1 cm. Conference Director sections are submitted as follows: Cassette summary: A1: Cystic duct margin, en face and neck A2: Body and fundus Yadira Carcamo, Pathologists' Rn Surgery StudentPerformed By: #### [id number] ####[facility] ([facility])[address] [facility], [place] [address]TOA AP MICROSCOPIC DESCRIPTIONMicroscopic examination performed.[facility] Jewish HospitalComment on above:Order Comment: Pre-op diagnosis:Calculus of gallbladder without cholecystitis without obstruction [K80.20]Performed By: #### [id number] ####[facility] ([facility])[address] [facility], [place] [address]IKV AP REPORT FINAL DIAGNOSIS NARRATIVENoalUniSalem Regional Medical Center Comment on above:Order Comment: Pre-op diagnosis:Calculus of gallbladder without cholecystitis without obstruction [K80.20]Result Comment: A. Gallbladder, cholecystectomy: - Chronic cholecystitis with cholelithiasis. Performed By: #### [id number] ####[facility] ([facility] [place], [place] [address]UNfw 38-89-7066LAQcmradf Of Present Illness Mike Lopez is a 63 y.o. male presenting with cholelithiasis and chronic cholecystitis. He has been advised to have cholecystectomy. His abdominal pain remains under control at this time, occasionally will have some discomfort. His drawer upfitter has seen him and cleared him for [...] pallor. Neurological: Negative for dizziness and headaches. Psychiatric/Behavioral: Negative for agitation and confusion. Last Recorded [...] without obstruction Debbie Burgess MD General Surgery ResidentNormalUniversity Coshocton Regional Medical CenterNURSNOTEon 57-54-4426BVSUDDJJZzpzztmhw instructions discussed with pt and pt's . Stated understanding. Prescription given and sent home with pt.NormalUnDunlap Memorial HospitalOPNOTEon [id number] CHOLECYSTECTOMY Operative Note Date: 08/10/2024 Location: [facility] OR Name: Mike Lopez, : 1960, Diagnosis Pre-op Diagnosis * Calculus of gallbladder without cholecystitis without obstruction [K80.20] Post-op Diagnosis * Calculus of gallbladder without cholecystitis without obstruction [K80.20] Procedures LAPAROSCOPIC CHOLECYSTECTOMY 27754 - [place] LAPS SURG CHOLECYSTECTOMY W/CHOLANGIOGRAPHY Surgeons Primary: Denice Moreno MD Resident - Assisting: Panfilo Burgess MD Procedure Summary Anesthesia: General ASA: IV Estimated Blood Loss: Minimal Total IV Fluids: 500 mL Drains: * None in log * Specimens ID Source Type Tests Collected By Collected At Frozen? Priority Lab ID A Gallbladder Tissue HISTOLOGY - TISSUE EXAM Denice Moreno MD 08/10/24 1443 No [id number] Description: GALLBLADDER Staff: Windows Vmware Administrator: Clark Bonner RN; Osman Jacobs RN Relief Scrub: Vianca Faria, EVENT SERVICES MANAGER Scrub Person: Ruba Petty CST Indications: Mike [...] - hemodynamically stable. Condition: stable Denice Moreno PoeikiHscyaxolmiOur Lady of Mercy Hospital - AndersonCT GLUCOSE METER UNSOLICITED RESULTSon 88-90-9204Mjkhdpr [Mass/Vol]99 mg/bBZbovbl97-450 [facility] FoundationComment on above:Order Comment: Waived Testing in the ED is performed under the ED CLIA certificate #[id number].Result Comment: [id number] By: #### [id number] ####[facility] ([facility])[address] [place], [place] [address]so ----- Message ----- From: Bull Leary NP Sent: 06/27/2024 2:48 PM EDT To: Julieta Boyd MA Subject: RE: Import I called. They said the time frame for peer to peer is out of the time window. Unfortunately, let the patient know his insurance denied the ECHO and we can try again in a few months. Thanks LM on VM.NormalUnDunlap Memorial HospitalConsulton [phone] [id number] Mike Lopez 1960 M Date Provider Department Center 06/26/2024 Kiera-DENICE MORENO [facility] SURG Second Fl Family History Problem Relation Age of Onset Cancer Mother Family Status - Relation Status Age at Mother Level of Service:87086 [place] OFFICE/OUTPATIENT NEW LOW MDM 30 MINUTES Reason for Visit and Comments: Consult [484] - Mike is here today for consult: Calculus of gallbladder, S/P CT abdomin and pelvisNormalUniversSelect Medical Specialty Hospital - YoungstownOffice Visiton [id number]-up [id number] Mike Lopez 1960 M Date Provider Department Center 05/23/2024 Shelby-[facility]ULL LE[facility] Family History Problem Relation Age of Onset Cancer Mother Family Status - Relation Status Age at Mother Level of Service:[address]708 [place] OFFICE/OUTPATIENT ESTABLISHED MOD MDM 30 MIN Reason for Visit and Comments: Congestive Heart Failure [127]NormalUnDun[facility] Ambulatory Visit Summaryon 59-42-9319Esegmeesnd Visit SummaryAmbulatory Visit Summary MIKE LOPEZ :1960 Visit Date:05/17/2024 [...] mcg/ inh inhalation aerosol) INHALE 2 PUFFS BYMOUTH EVERY 4 HOURS NEEDED FOR SHORTNESS OF BREATH Unchanged albuterol-ipratropium (albuterol-ipratropium Inh Judi 3 mL UD) INHALE 1 VIAL VIA NEBULIZER4 TIMES DAILY Unchanged aspirin (aspirin 81 mg [...] you for choosing us for your care. [facility] [place] [facility] Medicine Office/Clinic Noteon 71-03-6386Nwbeuy Medicine Office/Clinic NoteFajamaica [facility] Medicine Office/Clinic Note Chief Complaint Follow up to gallstones HPI Staff Mike is a 63 year old male presenting with 4 week f/u to gallstones US right upper quadrant @ [facility] on 04/25/24 was supposed to have gallbladder [...] eat a whole lot. does not need refills.all questions answered. RTC as needed 2. BMI [...] Yes, 05/17/2024 Family History Family history is negativeSouthern [place] Medical CenterComment on above: Result Comment: Electronically Signed By: Jailyn Blanc\.br\Date and Time Signed: 05/17/24 15:00 EDTAmbulatory Visit Summaryon 41-91-6699Yujgnltujp Visit SummaryAmbulatory Visit Summary MIKE LOPEZ :1960 Visit Date:04/19/2024 [...] 2:40 PM EDT With: Jailyn Blanc Where: [place] [id number]- Medications What How Much When Why Instructions New pantoprazole (Pantoprazole [address] Tab) 1 Tablets By Mouth Every day Gallstones Acid reflux BMI 25.0-25.9,adult Overweight Smoker Refills: 1 Pickup at [id number] Unchanged albuterol (Albuterol (Eqv-Ventolin HFA) 90 mcg/ inh inhalation aerosol) INHALE 2 PUFFS BYMOUTH EVERY 4 HOURS NEEDED FOR SHORTNESS OF BREATH Unchanged albuterol-ipratropium (albuterol-ipratropium Inh Judi 3 mL UD) INHALE 1 VIAL VIA NEBULIZER4 TIMES DAILY Unchanged aspirin (aspirin 81 mg [...] EVERY DAY FOR 30 DAYS Pharmacy Information [facility] #[id number]: [address], [place] [phone] Allergies No Known Medication Allergies Problems Ongoing [...] you for choosing us for your care. [facility] Medicine Office/Clinic Noteon 13-60-5105Zbdcqv Medicine Office/Clinic NoteFajamaica [facility] Medicine Office/Clinic Note Chief Complaint Establish Care HPI Staff Pt is here today to establish care. Establish Care: History: Any previous diagnosis: COPD, HTN, elevated cholesterol History of seeing any specialist: [employer] When was your last doctors visit: [facility]- 02/2024 Cardio-10/2023 Last provider: Dr. Bansal Any recent labs: [facility] ER 03/11/24 Health Maintenance UTD: Colonoscopy: denies PSA: denies Acute: Current issues/complaints: abdominal problems: [facility] ER 03/11/24. CC: abdominal pain CT [...] of gallbladder. 4-5 years ago patient was supposedto have his gallbladder removed but surgery was [...] best. order for u/s of gallbladder to [facility] provided and faxed. RTC 1 months for follow up. may consider lipid panel Ordered: pantoprazole, 40 mg = 1 tab(s), Oral, Daily, # 90 tab(s), Refills(s) 1, [id number], 176, cm, 04/19/24 13:00:00 EDT, Height/Length [...] will order refills. will send referral to GIfor possible scope for further evaluation. Ordered: pantoprazole, 40 mg = 1 tab(s), Oral, Daily, # 90 tab(s), Refills(s) 1, [id number], 176, cm, 04/19/24 13:00:00 EDT, Height/Length Dosing, 79, kg, 04/19/24 13:00:00 EDT, Weight Dosing 3. BMI 25.0-25.9,adult (Z68.25: Body mass index [BMI] 25.0-25.9, adult) BMI education given Ordered: pantoprazole, 40 mg = 1 tab(s), Oral, Daily, # 90 tab(s), Refills(s) 1, [id number] 176, cm, 04/19/24 13:00:00 EDT, Height/Length Dosing, 79, kg, 04/19/24 13:00:00 EDT, Weight Dosing 4. Overweight (E66.3: Overweight) see above Ordered: pantoprazole, 40 mg = 1 tab(s), Oral, Daily, # 90 tab(s), Refills(s) 1, [id number], 176, cm, 04/19/24 13:00:00 EDT, Height/Length Dosing, 79, kg, 04/19/24 13:00:00 EDT, Weight Dosing 5. Smoker (F17.200: Nicotine dependence, unspecified, uncomplicated) consider not smoking Ordered: pantoprazole, 40 mg = 1 tab(s), Oral, Daily, # 90 tab(s), Refills(s) 1, [id number], 176, cm, 04/19/24 13:00:00 EDT, [...] Allergies Social History Tobacco 5-9 cigarettes (between 09/08 to 1/2 pack (more content not included)...Normal [facility] HospitalComment on above:Result Comment: Electronically Signed By: Jailyn Blanc\Date and Time Signed: 04/19/24 13:32 EDTOffice Visit (Thoracic and Esophageal Surgery)on 52-77-6644Lcbrif-up visit Diagnoses/Problems Assessed Centrilobular emphysema (492.8) (J43.2) [...] on recent imaging to have bilateral upper lobenodules. Left upper lobe nodule was 1.3 x 0.6 cm in size, right upper lobe nodule with 0.9 x 0.7 cmin size. These were reportedly new compared to [...] discussion of perhaps a cardiomyopathy. No h/o FL. Patient had a prior drinking history many [...] Ibarra DO; May 03 2023 10:38AM EST (Author)[facility] TouchworksCT CHEST WO CONon 83-25-0597CI CHEST WO CON EXAMINATION: CT CHEST WO CON HISTORY: Lung field abnormal COMPARISON: [...] noncalcified pulmonary nodule, indeterminate. Electronically authenticated by: ARMADNO GALARZA Date: 2022-09-22 15:[address] [place], [place] [address]Con 05-62-1134Dovihnyhywc distribution width (RBC) [Ratio] 12.8 %Emapjb96.5 - 14.5St. [facility] HospitalComment on above:Performed By: #### CBC #### [address] [address]Fwhchukidk (Bld) [Volume fraction]48.1 %Lsryus36.0 - 52.0St. [facility] HospitalComment on above:Performed By: #### CBC #### [address] [address]Hsgiyjhjci (Bld) [Mass/Vol]16.4 g/gMDjxzsq06.5 - 17.5St. [facility] HospitalComment on above:Performed By: #### CBC #### [address] [address]UTYI (RBC) [Mass/Vol]34.1 g/vYIgwcvw46.0 - 36.0St. [facility] HospitalComment on above:Performed By: #### CBC #### [address] [address]KFC (RBC) [Entitic vol]93 oUSiecho52 - 100St. [facility] HospitalComment on above:Performed By: #### CBC #### [address] [address]RQDMQUXVV RBC0.0 /100 WBCNormal0.0 - 0.0St. [facility] HospitalComment on above:Performed By: #### CBC #### [address] [address]Blopyfhdm (Bld) [#/Vol]189 10*3/mEXxpllo389 - 450St. [facility] HospitalComment on above:Performed By: #### CBC #### [address] [address]OVI7.18 x10E12/LNormal4.50 - 5.90[facility] Comment on above:Performed By: #### CBC #### [address] [place] [address]RZJ (Bld) [#/Vol]8.3 10*3/uLNormal4.4 - 11.3St. [facility] HospitalComment on above:Performed By: #### CBC #### [address] [place] [address]JMRXQ 1 VIEWon 81-32-1728JIXBX 1 VIEWMRN: [id number] Patient Name: MIKE LOPEZ STUDY: CHEST 1 VIEW; 06/28/2022 2:43 pm INDICATION: left lung biopsy . COMPARISON: 10/12/2021 ACCESSION NUMBER(S): [id number] ORDERING CLINICIAN: EDUARDO MAS FINDINGS: CARDIOMEDIASTINAL SILHOUETTE: [...] of biopsy. No pneumothorax. Electronically signed by: Emelia HANSEN. [facility] 1 VIEWMRN: [id number] Patient Name: MIKE LOPEZ STUDY: CHEST 1 VIEW; 06/28/2022 1:41 pm INDICATION: Left lung biopsy . COMPARISON: 06/28/2022 ACCESSION NUMBER(S): [id number] ORDERING CLINICIAN: EDUARDO MAS FINDINGS: DEVICES: None CARDIOMEDIASTINAL SILHOUETTE: Cardiomediastinal silhouette is normal in size and configuration.Right-sided aortic arch. No significant atherosclerotic calcification LUNGS: Improved opacity in the left upper lobe since yesterday. No pneumothorax. No pleural effusion. BONES: No acute osseous changes. IMPRESSION: 1. Interval improvement left apical focal opacity since yesterday. No pneumothorax. Electronically signed by: Emelia HANSEN. [facility] CenterIN BIOPSY LUNG PERCUTANEOUS NEEDLEon [id number] BIOPSY LUNG PERCUTANEOUS NEEDLE Patient Name: MIKE LOPEZ STUDY: IN BIOPSY LUNG; PERCUTANEOUS NEEDLE; 06/28/2022 12:15 pm INDICATION: CT needle biopsy ANDRE R91.8: Multiple pulmonary nodules. COMPARISON: None. ACCESSION NUMBER(S): [id number] ORDERING CLINICIAN: CELSO IBARRA TECHNIQUE: LOSS PREVENTION AGENT: Eduardo Mas MD CONSENT: The patient was [...] and versed. Total intra-service sedation time from 6510-8736 hours (25 minutes). The physician was assisted [...] as above. Electronically signed by: EDUARDO MAS MDNormalSt. [facility] Specialty HospitalPT/INRon 05-42-9194PY Coag (PPP) [Time]12.2 sNormal9.8 - 13.4St. [facility] HospitalComment on above:Performed By: #### PTINR #### [address] [place], [place] [address]GG, INR1.5Ybklnv7.9 - 1.1St. [facility] HospitalComment on above:Performed By: #### PTINR #### [address] [place], [place] [address]NJO Surgical Pathology Departmenton 86-71-4644EKT Surgical Pathology DepartmentName MIKE LOPEZ Pathologist: Katelynn Cyr MD, Ph.D. Date of Procedure: 06/28/2022 Date Received: 06/28/2022 Date Reported 07/01/2022 Submitting Physician: CELSO IBARRA DO Location: [facility] Copy To/Referring/Attending: EDUARDO MAS MD Other External # FINAL DIAGNOSIS LUNG, LEFT UPPER LOBULE NODULE, BIOPSY: --MINUTE FRAGMENT OF LUNG PARENCHYMA WITHOUT SIGNIFICANT PATHOLOGIC FINDINGS, INSUFFICIENT FOR DIAGNOSIS. SEE NOTE Note: Microscopic examination of H AND E sections demonstrates minute fragments of lung parenchyma without significant abnormalities. Findings might not be entry level account representative of the clinically identified lesion. Clinical correlation is recommended Electronically Signed Out By Katelynn Cyr MD, Ph.D./MAC By the signature on this report, the individual or group listed as making the Final Interpretation/Diagnosis certifies that they have reviewed this case. Diagnostic interpretation performed at [facility] [address] [facility] [address] Clinical History: Physician Contact Number: [phone] Fixative (A): Formalin Clinical Diagnosis History LEFT LUNG NODULE Specimens Submitted As: A: LEFT UPPER LUNG NODULE Gross Description: Received in formalin, labeled with the patient?s name and hospital number and left lung nodule bx , are multiple minute pink-white, soft tissue fragments aggregating to 0.3 x 0.2 x 0.1 cm. The specimen is submitted in toto in one cassette. RCC rcc/06/28/2022 [facility] Department of Pathology [address] [place], [place] [address]YbmnwjYGNorthern Colorado Rehabilitation HospitalComment on above:Performed By: #### [facility] #### [facility] Surgical Pathology Department [address] [facility] [address]PJW BRAIN WO CONon 45-11-5778QNX BRAIN WO CONMRI BRAIN WITHOUT CONTRAST. INDICATION: Persistent headache COMPARISON: [...] Electronically authenticated by: TAMIE URIOSTEGUI Date: 2022-06-09 13:29[facility] CenterHEMOGLOBINon 11-96-5032Bysaylgwqd (Bld) [Mass/Vol]15.7 g/dL Ctkpsm90.0-18.0TrihealthComment on above:Performed By: #### BMP #### [facility] [place] [facility] [address] [place] [address] [address] Richard Bower Visit (Thoracic and Esophageal Surgery)on 05-13-2022 Follow-up visitDiagnoses/Problems Assessed Multiple pulmonary nodules (793.19) (R91.8) Orders [...] Capacity DLCO; Status:Active - Retrospective Authorization; Requested for:[id number]; Pre/PostBronchodilator Spirometry; Status:Active - Retrospective Authorization; Requested for:[id number]; Provider Impressions Mr. Lopez is a pleasant 61-year-old male with a significant history of COPD, moderate to severe, who presents with a newly has lateral left upper lobe 1.3 cm nodule new from last March. We discussedthe potential differential for this but candidly I [...] declined he may be a better candidate malik IR guided biopsy and if malignancy is [...] And reported negative cardiac catheterization. There is somediscussion of perhaps a cardiomyopathy. No h/o FL. Patient had a prior drinking history many [...] neoplasm (V16.9) (Z80.9) Father (more content not included)...NormalUH TouchworksTobacco Screening.on 33-91-9017Zjbp risk assessmenta) No falls within the last year ZX-Rlvwdvybor-Rnwzug 101 Work Phone: Tobacco use status CPHSa) XbxDH-Lnuxxkynzs-Gazymm 101 Work Phone: FUNGAL AB QUANTITAIVE DOUBLE IMMUNODIFFUon 04-17-2022 Aspergillus flavusNegativeNormalNeg:<1:1TrihealthComment on above: Performed By: #### CVDTBH #### [facility] [place] [facility] [address] [place] [address] Dr. Richard Wright fumigatusNegativeNormalNeg:<1:1[facility] Comment on above:Performed By: #### CVDTBH #### [facility] [place] [facility] [address] [place] [address] Dr. Richard Wright nigerNegativeNormalNeg:<1:1[facility] Comment on above:Performed By: #### CVDTBH #### [facility] [place] [facility] [address] [place] [address] Dr. Richard LinaresBlastomycesNegativeNormalNeg:<1:1TrihealthComment on above:Performed By: #### CVDTBH #### [facility] [place] [facility] [address] [place] [address] Dr. Richard Banerjee CAP AB QUANT DIDon 29-11-0821Bbnshwlrjov Mycelial CF Ab.NegativeNormalNeg:<1:2TrihealthComment on above:Performed By: #### BMP #### [facility] [place] [facility] [address] [place] [address] Dr. Yilan ChangHistoplasma Yeast CF Ab1:2NormalNeg:<1:2[facility] Comment on above:Performed By: #### BMP #### [facility] [place] [facility] [address] [place] [address] Dr. Richard Delacruz NEUTROPHIL CYTOPLASMIC AB (ANCA) PRon 48-87-5474Pcyv-MPO Antibodies<0.6Haxfzp4.0-0.9TrihealthComment on above:Result Comment: Performed at: BNPerformed By: #### BMP #### [facility] [place] [facility] [address] [place] [address] Dr. Richard Delacruz-PR3 Antibodies<0.3Xoiphp8.0-0.9TrihealthComment on above:Result Comment: Performed at: BNPerformed By: #### BMP #### [facility] [place] [facility] [address] [place] [address] Dr. Richard LinaresAtypical pANCA<1:20NormalNeg:<1:20ThUniversity Hospit[address]. John Medical CenterComment on above:Result Comment: The atypical pANCA pattern has been observed in a significant percentage of patients with ulcerative colitis, primary sclerosing cholangitis and autoimmune hepatitis. Performed at: CBPerformed By: #### BMP #### [facility] [place] [facility] [address] [place] [address] Dr. Richard LinaresCytoplasmic (C-ANCA)<1:20NormalNeg:<1:20ThUniversity [address] John Medical Center Comment on above:Result Comment: Performed at: CBPerformed By: #### BMP #### [facility] [place] [facility] [address] [place] [address] Dr. Richard LinaresPerinuclear (P-ANCA)<1:20NormalNeg:<1:20ThUniversity Hospit[address] John Medical Center Comment on above:Result Comment: The presence of positive fluorescence exhibiting P-ANCA or C-ANCA patterns alone is not specific for the diagnosis of Arnulfo's Granulomatosis (WG) or microscopic polyangiitis. Decisions about treatment should not be based solely on ANCA IFA results. The International ANCA Group Consensus recommends follow up testing of positive sera with both NH-3 and MPO-ANCA enzyme immunoassays. As many as 5% serum samples are positive only by EIA. Ref. AM J Clin Pathol 1999;111:507-513. Performed at: CBPerformed By: #### BMP #### [facility] [place] [facility] [address] [place] [address] Dr. Richard LinaresCYCLIC CITRULLINATED PEPTIDE AB (CCP)on 81-18-0522SNR Antibodies IgG/IgA1 unitsNormal0-19The [facility] [place] [facility] HospitalComment on above:Result Comment: Negative <20 Weak positive 20 - 39 Moderate positive 40 - 59 Strong positive >59Performed By: #### CVDTBH #### [facility] [place] [facility] [address] [place] [address] Dr. Richard LinaresHISTOPLASMA GALACTOMANNAN AG URINEon 89-29-0014Oxknuqecqfo Gal'madhuri Ag<0.5Normal<0.5 ng/mLThe [facility] [place] [facility] HospitalComment on above:Performed By: #### HISTGAL #### [facility] [address] [place] [address] Dr. Richard Boykin EIA W/REFLEX 5 BIOMARKERSon 68-70-0574NEM DirectNegative NormalNegativeTrihealthComment on above:Performed By: #### CVDTBH #### [facility] [place] [facility] [address] [place] [address] Dr. Richard PriceOTENSION-CONVERTING ENZYME (MATT)on 29-18-9301NDR94 U/LNormal 14-82The [facility] [place] [facility] HospitalComment on above:Performed By: #### ANGIOC #### [facility] [address] [place] [address] Dr. Richard LinaresANTISCLERODERMA ABon 35-44-3781Gfjrsdsevybzlis-70 Antibodies<0.2 Normal0.0-0.9The [place] [facility] HospitalComment on above:Performed By: #### ANSCLER #### [facility] [address] [place] [address] Dr. Richard LinaresRHEUMATOID FACTORon 73-50-8080RR Latex Turbid.<10.0Normal<14.0The [facility] [place] [facility] HospitalComment on above:Performed By: #### BMP #### [facility] [address] [place], [place] [address] Dr. Richard Asher RATE WESTERGRENon 54-82-8148MHD RATE1 mm/hrNormal<=20The [facility] [place] [facility] HospitalComment on above:Performed By: #### SEDR #### [facility] [place] [facility] [address] [place], [place] [address] SKULL BASE MID THIGHon 11-46-9138UPO CT SKULL BASE MID THIGHNOHIOHEALTH HARDIN [facility] MEDICINE PET/CT HISTORY: Solitary pulmonary nodule. COMPARISON: [...] Electronically authenticated by: ANGELITO MILAN Date: 2022-04-12 14:48NormOhioHealth Berger Hospital LUNG CANCER SCREENINGon 43-78-1846RW LUNG CANCER SCREENING EXAMINATION: CT LUNG CANCER [...] Electronically authenticated by: ARMANDO GALARZA Date: 2022-03-25 08:[address] [place], [place] [address]ECHOCARDIO M/2D COMPLETEon 03-59-1115NZKTVWEBBX M/2D COMPLETE Patient: MIKE LOPEZ Exam Date: 03/24/2022 : 1960 Gender:M Ordering : SANIYA LANDON Admission #: [id number] Family : DR ELOY BANSAL . Order #: [id number] CLICK HERE TO VIEW EXAM ECHOCARDIOGRAM REPORT [...] by: Neel Lu M.D. on 03/24/2022 at 17:32[facility] Health CenterPROF CHEM 8 (BAS METB)on 31-53-3406Pqloj gap [Moles/Vol]13.4 mmol/L NormalThe [facility] [place] [facility] HospitalComment on above:Performed By: #### CVDTBH #### [facility] [place] [facility] [address] [place] [address] Dr. Richard LinaresCalcium [Mass/Vol]9.0 mg/dLNormal8.5-10.1[facility] Comment on above:Performed By: #### CVDTBH #### [facility] [place] [facility] [address] [place] [address] [address] Richard LinaresChloride [Moles/Vol]102 mmol/XSvrsch46-995Rcz [facility] [place] [facility] Comment on above:Performed By: #### CVDTBH #### [facility] [address] [place] [address] [address] Richard LinaresCO2 [Moles/Vol]32.1 mmol/LCritically high21.0-32.0The [facility] [place] [facility] HospitalComment on above:Performed By: #### CVDTBH #### [facility] [address] [place] [address] Dr. Richard LinaresCreatinine [Mass/Vol]1.00 mg/dLNormal0.70-1.30The [facility] [place] [facility] HospitalComment on above:Performed By: #### CVDTBH #### [facility] [address] [place] [address] Dr. Richard PaceGFR-AF PALAUAN>=60Normal>=60The [facility] [place] [facility] HospitalComment on above:Performed By: #### CVDTBH #### [facility] [address] [place] [address] Dr. Richard PaceGFR-NON AF PALAUAN>=60Normal>=60The [facility] [place] [facility] HospitalComment on above:Performed By: #### CVDTBH #### [facility] [address] [place] [address] Dr. Richard LinaresGlucose [Mass/Vol]109 mg/dLCritically fduf02-496Ikr [facility] [place] [facility] HospitalComment on above:Performed By: #### CVDTBH #### [facility] [address] [place] [address] Dr. Richard LinaresPotassium [Moles/Vol]4.5 mmol/LNormal3.5-5.1The [facility] [place] [facility] Comment on above:Performed By: #### CVDTBH #### [facility] [address] [place] [address] Dr. Richard LinaresSodium [Moles/Vol]143 mmol/XNleazc187-617Chr [facility] [place] [facility] Comment on above:Performed By: #### CVDTBH #### [facility] [address] [place] [address] [address] Richard Mackay nitrogen [Mass/Vol]11.0 mg/dLNormal7.0-18.0The [facility] [place] [facility] HospitalComment on above:Performed By: #### CVDTBH #### [facility] [place] [facility] [address] [place], [place] [address] Dr. Richard LinaresUrea nitrogen/Creatinine [Mass ratio]11.0 mg/mgNormalThe [facility] [place] [facility] HospitalComment on above:Performed By: #### CVDTBH #### [facility] [address] [place] [address] [address] Richard LinaresCardiovascular Lab Reporton 08-73-1530Csyewdderpggam Lab Report [facility] #: [id number] Physician: Carleen Bonilla Department of [facility] Medicine Service Date: 12/21/2021 Division of Birthdate: 1960 Cardiology Room #: Adult Cardiovascular Services [place] [address] Cardiovascular Laboratory Report INDICATION: The patient is [...] signed informed consent. He was brought to lab associate in a fasting state. The right neck area was prepped and draped in usual fashion. Micropuncture technique and ultrasound guidance were used for access in the right internal jugular vein. A 6-Belgian x 11 cm sheath was placed. A 6-Belgian Barboza catheter was used for right catheterization with measurement of pressures and calculation of cardiac output using the estimated Bridget method. Barboza catheter was removed. Modified Tyrone's test was favorable on the right. Access in the right radial artery was obtained using micropuncture technique and ultrasound guidance. A 6-Belgian x 11 cm Hydrophilic sheath was advanced. Verapamil was given through the sheath, and heparin was administered intravenously. Bilateral selective coronary angiography was then performed using 6-Belgian JL3.5 and JR5 diagnostic catheters. Catheters were [...] P/Carleen Valdez M.D. Date Trans: 12/22/2021 04:31 A/neymaro DN_JN:[id number] cc: Eloy Bansal M.D. 1 [facility] A [facility] [address]GoiamzUwsSelect Medical Specialty Hospital - CincinnatiCBC AUTO DIFF on 11-04-9982PXFI #0.1 103/ulNormal0.0-0.1The [facility] [place] [facility] HospitalComment on above: Performed By: #### CBC #### [facility] [place] [facility] [address] [address] [address] Richard LinaresBasophils/100 WBC (Bld)0.8 %Normal0.2-2.0[facility] Comment on above:Performed By: #### CBC #### [facility] [place] [facility] [address] [address] [address] Richard Garland #0.0 103/ulNormal0.0-0.7The [facility] [place] [facility] HospitalComment on above: Performed By: #### CBC #### [facility] [place] [facility] [address] [address] [address] Richard Paceosinophils/100 WBC (Bld)0.0 %Critically low0.9-7.0The [facility] [place] [facility] HospitalComment on above:Performed By: #### CBC #### [facility] [place] [facility] [address] [address] [address] Richard Pacerythrocyte distribution width (RBC) [Ratio]12.9 %Wmxvya44.0-15.0 The [facility] [place] [facility] HospitalComment on above:Performed By: #### CBC #### [facility] [place] [facility] [address] [place] [address] Dr. Richard LinaresHematocrit (Bld) [Volume fraction]46.1 %Zerpyz17.0-54.0The [facility] [place] [facility] HospitalComment on above:Performed By: #### CBC #### [facility] [place] [facility] [address] [place] [address] Dr. Richard LinaresHemoglobin (Bld) [Mass/Vol]15.6 g/fQCimgul72.0-18.0The Sherwood HospitalComment on above:Performed By: #### CBC #### [facility] [place] [facility] [address] [place] [address] Dr. Richard Lubin #0.04 10e3/ulCritically high0.00-0.03The [facility] [place] [facility] Comment on above:Performed By: #### CBC #### [facility] [place] [facility] [address] [place] [address] Dr. Richard Lubin %0.5 %Normal0.0-0.5The [facility] [place] [facility] HospitalComment on above: Performed By: #### CBC #### [facility] [place] [facility] [address] [place] [address] Dr. Richard Taveras #1.5 103/ulNormal1.2-3.8The [facility] [place] [facility] HospitalComment on above:Performed By: #### CBC #### [facility] [place] [facility] [address] [place] [address] Dr. Richard Quickhocytes/100 WBC (Bld)17.7 %Critically low20.5-60.0The [facility] [place] [facility] HospitalComment on above:Performed By: #### CBC #### [facility] [place] [facility] [address] [place] [address] Dr. Richard LeosUAL DIFF REQNONormalThe [facility] [place] [facility] HospitalComment on above: Performed By: #### CBC #### [facility] [place] [facility] [address] [place] [address] Dr. Richard Polk (RBC) [Entitic mass]31.1 poNapimn06.9-34.0The [facility] [place] [facility] HospitalComment on above:Performed By: #### CBC #### [facility] [place] [facility] [address] [place] [address] Dr. Richard Dueñas (RBC) [Mass/Vol]33.8 g/yKOqhsfs58.9-35.2The [facility] [place] [facility] HospitalComment on above:Performed By: #### CBC #### [facility] [place] [facility] [address] [place] [address] Dr. Richard DueñasV (RBC) [Entitic vol]92.0 nISyhywj12.0-94.0The [facility] [place] [facility] HospitalComment on above:Performed By: #### CBC #### [facility] [place] [facility] [address] [place] [address] Dr. Richard Hinojosa #0.7 103/ulNormal0.3-0.8The [facility] [place] [facility] HospitalComment on above:Performed By: #### CBC #### [facility] [place] [facility] [address] [place] [address] Dr. Richard Lynneocytes/100 WBC (Bld)8.7 %Normal1.7-12.0The [facility] [place] [facility] Comment on above:Performed By: #### CBC #### [facility] [place] [facility] [address] [place] [address] Dr. Richard Farley #6.2 103/ulNormal1.4-6.5The [facility] [place] [facility] HospitalComment on above:Performed By: #### CBC #### [facility] [place] [facility] [address] [place] [address] Dr. Richard Sanchezutrophils/100 WBC (Bld)72.3 %Rghsxu82.0-75.0The [facility] [place] [facility] HospitalComment on above:Performed By: #### CBC #### [facility] [place] [facility] [address] [place] [address] Dr. Richard Riveralet mean volume (Bld) [Entitic vol]10.2 fLNormal9.5-13.5The [facility] [place] [facility] HospitalComment on above:Performed By: #### CBC #### [facility] [place] [facility] [address] [place] [address] Dr. Richard PatelT197 103/hzAilecq574-746Zxv [facility] [place] [facility] HospitalComment on above: Performed By: #### CBC #### [facility] [place] [facility] [address] [place] [address] Dr. Richard TilleyC5.01 106/ulNormal4.70-6.10The [facility] [place] [facility] HospitalComment on above:Performed By: #### CBC #### [facility] [place] [facility] [address] [place] [address] Dr. Richard LinaresWBC8.5 103/ulNormal4.0-11.0The [facility] [place] [facility] HospitalComment on above: Performed By: #### CBC #### [facility] [place] [facility] [address] [place] [address] Dr. Richard LinaresCovid-19 PCR ([facility])on 04-60-4287GTQQ-CoV-2 (COVID-19) RNA MOLLY+probe Ql (Unsp spec)Not detectedNormalNOT DETECTEDThe [facility] [place] [facility] Comment on above:Result Comment: This test is not yet approved or cleared by the [place] FDA. When there are no FDA-approved or cleared tests available, and other criteria are met, FDA can make tests available under an emergency access mechanism called an Emergency Use Authorization (EUA). The EUA for this test is supported by the [employer] Installer of Health and Human Service's (HHS's) declaration that circumstances exist to justify the emergency use of in vitro diagnostics for the detection and/or diagnosis of the virus that causes COVID- 19. This EUA will remain in effect (meaning [...] of clinical signs and symptoms consistent with SARS-CoV-2.Performed By: #### BMP #### [facility] [place] [facility] [address] [place] [address] Dr. Richard LinaresPROF CHEM 8 (BAS METB)on 73-27-8393Ztist gap [Moles/Vol]6.2 mmol/LNormalThe [facility] [place] [facility] HospitalComment on above:Performed By: #### BMP #### [facility] [place] [facility] [address] [place] [address] Dr. Richard LinaresCalcium [Mass/Vol]8.2 mg/dLCritically low8.5-10.1TrihealthComment on above:Performed By: #### BMP #### [facility] [place] [facility] [address] [address] [address] Richard LinaresChloride [Moles/Vol]102 mmol/TUkkidi77-137Tyy [facility] [place] [facility] Comment on above:Performed By: #### BMP #### [facility] [place] [facility] [address] [address] [address] Richard LinaresCO2 [Moles/Vol]34.6 mmol/LCritically high22.0-30.0The [facility] [place] [facility] HospitalComment on above:Performed By: #### BMP #### [facility] [place] [facility] [address] [place] [address] Dr. Richard LinaresCreatinine [Mass/Vol]0.96 mg/dLNormal0.66-1.25The [facility] [place] [facility] HospitalComment on above:Performed By: #### BMP #### [facility] [place] [facility] [address] [address] [address] Richard PaceGFR-AF PALAUAN>60Normal>=60The [facility] [place] [facility] HospitalComment on above:Performed By: #### BMP #### [facility] [place] [facility] [address] [place] [address] Dr. Richard PaceGFR-NON AF PALAUAN>60Normal>=60The [facility] [place] [facility] HospitalComment on above:Performed By: #### BMP #### [facility] [place] [facility] [address] [address] [address] Richard LinaresGlucose [Mass/Vol]94 mg/kHWuciiy40-795TbjTrihealth Comment on above:Performed By: #### BMP #### [facility] [place] [facility] [address] [address] [address] Richard LinaresPotassium [Moles/Vol]3.8 mmol/LNormal3.4-5.0The [facility] [place] [facility] Comment on above:Performed By: #### BMP #### [facility] [place] [facility] [address] [address] [address] Richard LinaresSodium [Moles/Vol]139 mmol/ZFntpkp860-674Kkp [facility] [place] [facility] Comment on above:Performed By: #### BMP #### [facility] [place] [facility] [address] [place], [place] [address] Dr. Richard Mackay nitrogen [Mass/Vol]11.0 mg/dLNormal7.0-18.0The [facility] [place] [facility] HospitalComment on above:Performed By: #### BMP #### [facility] [place] [facility] [address] [place], [place] [address] Dr. Richard LinaresUrea nitrogen/Creatinine [Mass ratio]11.5 mg/mgNormalThe [facility] [place] [facility] HospitalComment on above:Performed By: #### BMP #### [facility] [place] [facility] [address] [address] [address] Richard LinaresUS carotid doppler BIon 48-24-7052YJ carotid doppler [facility] [place] [address] [place] [address] Ultrasound Report Signed Patient: Mike Lopez MR#: [id number] : 1960 Acct:[id number] Age/Sex: 61 / M ADM Date: 12/01/21 Loc: Room: Type: [facility] Attending Dr: Saniya CASTILLO Ordering Provider: Saniya [...] Milton Wei M.D.12/02/2021 4:20 PM Dictation Location: [place] [address] Tech: [facility] Transcribed By: DIANA 12/02/21 1620 Dictated By: Milton Wei MD 12/02/21 1619 Signed By: 12/02/21 1620[facility] HospitalECHOCARDIO M/2D COMPLETEon 20-63-1753UVRAZMXFGO M/2D COMPLETEPatient: DOMENICAMIKE CoelhoNancy Exam Date: 11/27/2021 : 1960 Gender:M Ordering : SANIYA LANDON Admission #: [id number] Family : Order #: [id number] CLICK HERE TO VIEW EXAM ECHOCARDIOGRAM REPORT [...] Area(A4C): 15.10 cm2 Left Atrium Systolic Volume(A2C): 52579 mm3 Left Atrium Systolic Volume(A4C): 63473 mm3 Mitral Valve MV E to A Ratio: 0.80 Deceleration Schley: 4530 mm/s2 Mitral Valve A-Wave Peak Velocity: [...] by: Carleen Valdez M.D. on 11/30/2021 at 10:35[facility] STRESS/REST MULTIon 58-07-4596UW STRESS/REST MULTIPatient: MIKE LOPEZ Exam Date: 10/26/2021 : 1960 Gender:M Ordering : DR ELOY BANSAL . Admission #: [id number] Family : Order #: [id number] CLICK HERE TO VIEW EXAM RADIOLOGY REPORT [...] DEFECT: LOCATION: Basal inferior. Mid-inferior. Apical inferior. Gentry. SIZE: Medium (3-4 segments). SEVERITY: Moderate. TYPE: [...] by: Armando Galarza MD on 11/09/2021 at 11:40NormalTh[address] [facility] AUTO DIFFon 04-79-6197HDWK #0.0 103/ulNormal0.0-0.1The [facility] [place] [facility] HospitalComment on above:Performed By: #### BMP #### [facility] [place] [facility] [address] [place] [address] Dr. Richard LinaresBasophils/100 WBC (Bld)0.5 %Normal0.2-2.0[facility] Comment on above:Performed By: #### BMP #### [facility] [place] [facility] [address] [place] [address] Dr. Richard Garland #0.0 103/ulNormal0.0-0.7The [facility] [place] [facility] HospitalComment on above: Performed By: #### BMP #### [facility] [place] [facility] [address] [place] [address] Dr. Richard Paceosinophils/100 WBC (Bld)0.0 %Critically low0.9-7.0The [facility] [place] [facility] HospitalComment on above:Performed By: #### BMP #### [facility] [place] [facility] [address] [place] [address] Dr. Richard Pacerythrocyte distribution width (RBC) [Ratio]12.8 %Rriwky71.0-15.0 TrihealthComment on above:Performed By: #### BMP #### [facility] [place] [facility] [address] [place] [address] Dr. Richard LinaresHematocrit (Bld) [Volume fraction]41.8 %Critically low42.0-54.0 TrihealthComment on above:Performed By: #### BMP #### [facility] [place] [facility] [address] [place] [address] Dr. Richard LinaresHemoglobin (Bld) [Mass/Vol]14.4 g/bRQnyvkl31.0-18.0The [facility] [place] [facility] HospitalComment on above:Performed By: #### BMP #### [facility] [place] [facility] [address] [place] [address] Dr. Richard Lubin #0.01 10e3/ulNormal0.00-0.03The [facility] [place] [facility] HospitalComment on above:Performed By: #### BMP #### [facility] [place] [facility] [address] [place] [address] Dr. Richard Lubin %0.2 %Normal0.0-0.5The [facility] [place] [facility] HospitalComment on above: Performed By: #### BMP #### [facility] [place] [facility] [address] [place] [address] Dr. Richard Taveras #0.9 103/ulCritically low1.2-3.8The [facility] [place] [facility] Comment on above:Performed By: #### BMP #### [facility] [place] [facility] [address] [place] [address] Dr. Richard Quickhocytes/100 WBC (Bld)15.0 %Critically low20.5-60.0The [facility] [place] [facility] HospitalComment on above:Performed By: #### BMP #### [facility] [place] [facility] [address] [place] [address] Dr. Richard LeosUAL DIFF REQNONormalThe [facility] [place] [facility] HospitalComment on above: Performed By: #### BMP #### [facility] [place] [facility] [address] [place] [address] Dr. Richard Dueñas (RBC) [Entitic mass]31.4 gfPbrdjt01.9-34.0The [facility] [place] [facility] HospitalComment on above:Performed By: #### BMP #### [facility] [place] [facility] [address] [place] [address] Dr. Richard Dueñas (RBC) [Mass/Vol]34.4 g/oQKffxce28.9-35.2The [facility] [place] [facility] HospitalComment on above:Performed By: #### BMP #### [facility] [place] [facility] [address] [place] [address] Dr. Richard DueñasV (RBC) [Entitic vol]91.3 dDWosjdk04.0-94.0The [facility] [place] [facility] HospitalComment on above:Performed By: #### BMP #### [facility] [place] [facility] [address] [place] [address] Dr. Richard Hinojosa #0.4 103/ulNormal0.3-0.8The [facility] [place] [facility] HospitalComment on above:Performed By: #### BMP #### [facility] [place] [facility] [address] [address] [address] Richard Lynneocytes/100 WBC (Bld)6.4 %Normal1.7-12.0The [facility] [place] [facility] Comment on above:Performed By: #### BMP #### [facility] [place] [facility] [address] [place] [address] Dr. Richard Farley #4.9 103/ulNormal1.4-6.5The [facility] [place] [facility] HospitalComment on above:Performed By: #### BMP #### [facility] [place] [facility] [address] [place] [address] Dr. Richard Sanchezutrophils/100 WBC (Bld)77.9 %Critically high43.0-75.0The [facility] [place] [facility] HospitalComment on above:Performed By: #### BMP #### [facility] [place] [facility] [address] [place] [address] Dr. Richard Riveralet mean volume (Bld) [Entitic vol]9.9 fLNormal9.5-13.5The [facility] [place] [facility] HospitalComment on above:Performed By: #### BMP #### [facility] [place] [facility] [address] [place] [address] Dr. Richard LinaresPLT208 103/luLugupr428-560Wwa [facility] [place] [facility] HospitalComment on above: Performed By: #### BMP #### [facility] [place] [facility] [address] [place] [address] Dr. Richard LinaresRBC4.58 106/ulCritically low4.70-6.10The [facility] [place] [facility] HospitalComment on above:Performed By: #### BMP #### [facility] [place] [facility] [address] [place] [address] Dr. Richard LinaresWBC6.3 103/ulNormal4.0-11.0The [facility] [place] [facility] HospitalComment on above: Performed By: #### BMP #### [facility] [place] [facility] [address] [place] [address] Dr. Richard LinaresCovid-19 PCR ([facility])on 73-98-7517XXUF-CoV-2 (COVID-19) RNA MOLLY+probe Ql (Unsp spec)Not detectedNormalNOT DETECTEDThe [facility] [place] [facility] Comment on above:Result Comment: This test is not yet approved or cleared by the [place] FDA. When there are no FDA-approved or cleared tests available, and other criteria are met, FDA can make tests available under an emergency access mechanism called an Emergency Use Authorization (EUA). The EUA for this test is supported by the Agness of Health and Human Service's (HHS's) declaration that circumstances exist to justify the emergency use of in vitro diagnostics for the detection and/or diagnosis of the virus that causes COVID- 19. This EUA will remain in effect (meaning [...] of clinical signs and symptoms consistent with SARS-CoV-2.Performed By: #### CVDTBH #### [facility] [place] [facility] [address] [place] [address] Dr. Richard LinaresPROF 14(COMP METB)on 40-39-0896Jqgngqw [Mass/Vol]3.6 g/dLNormal 3.5-5.0The [facility] [place] [facility] HospitalComment on above:Performed By: #### LUBNA HSTROPN #### [facility] [place] [facility] [address] [place] [address] Dr. Richard LinaresAlbumin/Globulin [Mass ratio]1.3 {ratio}NormalThe [facility] [place] [facility] HospitalComment on above:Performed By: #### LUBNA HSTROPN #### [facility] [place] [facility] [address] [address] [address] Richard SingletaryP [Catalytic activity/Vol]65 U/FRoqbaq29-527Ffn [facility] [place] [facility] HospitalComment on above:Performed By: #### CMP, HSTROPN #### [facility] [place] [facility] [address] [place] [address] Dr. Richard SingletaryT [Catalytic activity/Vol]12 U/LCritically swg52-93Gwl [facility] [place] [facility] HospitalComment on above:Performed By: #### CMP, HSTROPN #### [facility] [place] [facility] [address] [place] [address] Dr. Richard Penaon gap [Moles/Vol]10.1 mmol/LNormalThe [facility] [place] [facility] Comment on above:Performed By: #### CMP, HSTROPN #### [facility] [place] [facility] [address] [place] [address] Dr. Richard LinaresAST [Catalytic activity/Vol]8 U/LCritically mbf27-19Pil [facility] [place] [facility] HospitalComment on above:Performed By: #### CMP, HSTROPN #### [facility] [place] [facility] [address] [place] [address] Dr. Richard LinaresBilirubin [Mass/Vol]0.6 mg/dLNormal0.2-1.3TUniversity Hospitals Conne[facility] Comment on above:Performed By: #### CMP, HSTROPN #### [facility] [place] [facility] [address] [place] [address] Dr. Richard LinaresCalcium [Mass/Vol]8.3 mg/dLCritically low8.4-10.2The [facility] [place] [facility] HospitalComment on above:Performed By: #### CMP, HSTROPN #### [facility] [place] [facility] [address] [place] [address] Dr. Richard LinaresChloride [Moles/Vol]106 mmol/WYtewga25-817Qdp [facility] [place] [facility] Comment on above:Performed By: #### CMP, HSTROPN #### [facility] [place] [facility] [address] [place] [address] Dr. Richard LinaresCO2 [Moles/Vol]29.4 mmol/OKorsyj35.0-30.0The [facility] [place] [facility] Comment on above:Performed By: #### CMP, HSTROPN #### [facility] [place] [facility] [address] [address] [address] Richard LinaresCreatinine [Mass/Vol]0.73 mg/dLNormal0.66-1.25The [facility] [place] [facility] HospitalComment on above:Performed By: #### CMP, HSTROPN #### [facility] [place] [facility] [address] [address] [address] Richard PaceGFR-AF PALAUAN>60Normal>=60The [facility] [place] [facility] HospitalComment on above:Performed By: #### CMP, HSTROPN #### [facility] [place] [facility] [address] [place] [address] Dr. Richard Stephen-NON AF PALAUAN>60Normal>=60The [facility] [place] [facility] HospitalComment on above:Performed By: #### CMP, HSTROPN #### [facility] [place] [facility] [address] [place] [address] Dr. Richard LinaresGlobulin (S) [Mass/Vol]2.8 g/dLNormalThe [facility] [place] [facility] HospitalComment on above:Performed By: #### CMP, HSTROPN #### [facility] [place] [facility] [address] [place] [address] Dr. Richard LinaresGlucose [Mass/Vol]133 mg/dLCritically bqzx76-835Evt [facility] [place] [facility] HospitalComment on above:Performed By: #### CMP, HSTROPN #### [facility] [place] [facility] [address] [place] [address] Dr. Richard LinaresPotassium [Moles/Vol]3.5 mmol/LNormal3.4-5.0[facility] Comment on above:Performed By: #### CMP, HSTROPN #### [facility] [place] [facility] [address] [place] [address] Dr. Richard LinaresProtein [Mass/Vol]6.4 g/dLNormal6.1-8.2[facility] Comment on above:Performed By: #### CMP, HSTROPN #### [facility] [place] [facility] [address] [place] [address] Dr. Richard LinaresSodium [Moles/Vol]142 mmol/XUrhtwe660-293Pvb [facility] [place] [facility] Comment on above:Performed By: #### CMP, HSTROPN #### [facility] [place] [facility] [address] [place] [address] Dr. Richard Mackay nitrogen [Mass/Vol]9.0 mg/dLNormal9.0-20.0The [facility] [place] [facility] HospitalComment on above:Performed By: #### CMP, HSTROPN #### [facility] [place] [facility] [address] [place] [address] Dr. Richard LinaresUrea nitrogen/Creatinine [Mass ratio]12.3 mg/mgNormalThe [facility] [place] [facility] HospitalComment on above:Performed By: #### CMP, HSTROPN #### [facility] [place] [facility] [address] [place] [address] Dr. Richard Villa, HIGH SENSITIVITYon 35-76-6469YONYQI2.9 pg/mLNormal 4.0-42.2The [facility] [place] [facility] HospitalComment on above:Result Comment: CUT-OFF POINTS HAVE BEEN ESTABLISHED BASED ON THE FOURTH UNIVERSAL DEFINITIONS OF MYOCARDIAL INFARCTION. THE UPPER REFERENCE LIMIT (URL) OF TROPONIN, DEFINED THE 99TH PERCENTILE OF cTnI DISTRIBUTION IN A REFERENCE POPULATION, HAS BEEN CONFIRMED THE DECISION THRESHOLD FOR FL DIAGNOSIS.Performed By: #### HSTROPN #### [facility] [place] [facility] [address] [place] [address] Dr. Richard LinaresHSTROP6.0 pg/mLNormal4.0-42.2The [facility] [place] [facility] HospitalComdetroit receiving hospital on above:Result Comment: CUT-OFF POINTS HAVE BEEN ESTABLISHED BASED ON THE FOURTH UNIVERSAL DEFINITIONS OF MYOCARDIAL INFARCTION. THE UPPER REFERENCE LIMIT (URL) OF TROPONIN, DEFINED THE 99TH PERCENTILE OF cTnI DISTRIBUTION IN A REFERENCE POPULATION, HAS BEEN CONFIRMED THE DECISION THRESHOLD FOR FL DIAGNOSIS.Performed By: #### CMP, HSTROPN #### [facility] [place] [facility] [address] [place] [address] Dr. Richard LinaresXR CHEST 1 Von 30-46-0701BF CHEST 1 VEXAMINATION: XR CHEST 1 V HISTORY: Chest pressure and dizziness [...] Electronically authenticated by: ARMANDO ZULETA Date: 2021-10-12 19:22[facility] Vital Signs Date TimeVital SignValuePerforming ScugkazjhItkxqjhq80-90-6643 14:26-0400Body ijfwsq371.3 cmFredric Itzkowitz DO Work Phone: [facility] CenterTvjkiqrwcq63-39-8682 14:26-0400Body mass index (BMI) [Ratio]22.18 kg/i7Pzgqgea Itzkowitz DO Work Phone: [facility] CenterDiudxxsvvs16-53-6017 14:26-0400Body .12 kgFredric Itzkowitz DO Work Phone: [facility] CenterUhfvtvdxvo00-31-2426 15:44-0400Body pzaykp813.3 cmFredric Itzkowitz DO Work Phone: [phone] CenterTxutkxfikj72-08-0837 15:44-0400Body mass index (BMI) [Ratio]22.18 kg/w4Cbqalqb Itzkowitz DO Work Phone: [facility] CenterRpnwlkimte58-99-6830 15:44-0400Body muuxlw06.12 kgFredric Itzkowitz DO Work Phone: [phone] CenterGafzyhcgoy29-66-8291 15:44-0400Diastolic blood mm[Hg]Carri Itzkowitz DO Work Phone: [phone] CenterHezkftlzrd14-43-6743 15:44-0400Systolic blood zzyfhbqy73 mm[Hg]Carri Itzkowitz DO Work Phone: [facility] CenterRinwbdvrkt82-85-2612 14:14-0400Blood Pressure LocationMichael NILL [phone]-UhqelK[facility] [place] 05-14-2024 14:14-0400Diastolic blood vmwusouq03 mm[Hg]Benji MCCULLOUGH [phone]-WttbcSumma Health [facility] [place] 05-14-2024 14:14-0400Heart rate72 /minMichael NILL [phone]-BwbaoSumma Health [facility] [place] 05-14-2024 14:14-0400Respiratory rate16 /minMichael NILL [phone]-WdsupSumma Health [facility] [place] 05-14-2024 14:14-0400Systolic blood eyjeunem050 mm[Hg]Benji MCCULLOUGH [phone]-BwsjhMer[facility] 05-13-2022 10:53-0400Body lzixgw698.88 cmKiana Bansal Work Phone: [phone]-Jiswehqjnr-[place] [address] Work Phone: [phone]) [phone] 10:53-0400Body mass index (BMI) [Ratio] 22.92 kg/m2Bandarana Bansal Work Phone: [phone]-Gmwtughvco-[place] [place] [address] Work Phone: [phone] 10:53-0400Body surface area Derived from formula1.98 m2Bandarana Galilea Bansal Work Phone: [phone]-Iwdpwammcz-[place] [address] Work Phone: [phone] 10:53-0400Body .1 [degF]Eloy Calero Bansal Work Phone: [phone]-Eminnkxyic-[place] [place] [address] Work Phone: [phone] 460-818109-08-2022 10:53-0400Body gplcyi57.66 kgKiana Galilea Bansal Work Phone: [phone]-Lepmctonjv-[place] [address] Work Phone: [phone] 10:53-0400Diastolic blood encldumt02 mm[Hg] Eloy Galilea Bansal Work Phone: mg209-8658PD-Gmthiifqwl-[place] [address] Work Phone: [phone] 421-847009-08-2022 10:53-0400Heart ffhf896 /minKim Galilea Bansal Work Phone: mg980-0224UI-Sfenmpgetb-[place] [address] Work Phone: [phone] 10:53-0400Respiratory rate16 /minKim Galilea Bansal Work Phone: mg187-1479UH-Dtjbnbpayq-[place] [address] Work Phone: [phone] 10:53-4803QbF5% (BldA) [Mass fraction]94 % Eloy Galilea Bansal Work Phone: mg295-1065UQ-Vndjcrbpit-[place] [address] Work Phone: [phone] 10:53-0400Systolic blood zontdcah345 mm[Hg] Eloy Galilea Bansal Work Phone: [phone]-Kigpxefvtt-[place] [address] Work Phone: Encounters Encounter DateEncounter Type[facility] ProviderFacilityStart: 03-11-2025 End: 20-12-5000mwimqfhnrmCJJHFIP H ITZKOWITZNot AvailableStart: 03-11-2025 End: 94-71-4718Asclib outpatient visit 15 minutesFredric H Itzkowitz DO Work Phone: [facility] ST GENSComment on above:Thrombosed external hemorrhoid (Primary Dx)Start: 03-04-2025 End: 66-63-1138tfykvpyybnJOPXORD H ITZKOWITZNot AvailableStart: 03-04-2025 End: 27-02-8211Laphzp outpatient new 45 minutesFredric H Itzkowitz DO Work Phone: noms ST GENSComment on above:Thrombosed external hemorrhoidStart: 02-26-2025 End: 24-51-0783mgkdtroownHJD Jailyn Seymour SchwabFacility:FT FM BellevueStart: 01-30-2025 End: 70-77-3753qlbkwkdeqgEHR Jodi L SchwabFacility:FT BellevueStart: 11-30-2024 End: 47-32-4709waexjzklhgVTBBCN [facility]ol[facility] Start: 08-22-2024 End: 50-83-3337dkpvmbxpugGRPPILBFlower Hospitaltart: 08-10-2024 End: 02-51-6498zchagqwvxmQGQOZRMFlower Hospitaltart: 07-03-2024 End: 08-11-0950Ryxn/qhp telephone evaluation 07-25 [facility] Work Phone: [facility] SystemComment on above: Centrilobular emphysema (Multi) (Primary Dx); Lung noduleStart: 13-08-1606vmlcigeqqhHDGJSZUSt. Charles Hospitaltart: 06-26-2024 End: 05-19-5442lnivggrazrLSQKMDKFlower Hospitaltart: 06-25-2024 End: 08-84-0085plkmhoifewULEABIGFlower Hospitaltart: 05-23-2024 End: 84-27-9868kxnduoflybYEPNFSBWadsworth-Rittman Hospitaltart: 05-23-2024 End: 25-32-8899Cinjvrnje for other preprocedural examinationLima Memorial Hospitaltart: 05-17-2024 End: 30-86-8441ssbvgghupuJNU Jodi L SchwabFacility:FT BellevueStart: 05-14-2024 End: 26-52-0927towzufvnuaXCN Jodi L SchwabFacility: Farooqtart: 05-14-2024 End: 92-56-5440Pfniwvb encounter procedureMichael R NILL [phone]-QjqcoK[facility] [place] Start: 46-81-5036ditzfsouarXEZ Jailyn SchwabFacility:GS NorbibianakStart: 58-49-7504uihawwnkzkWLJ Jailyn SchwabFacility:GS BellevueStart: 04-19-2024 End: 50-85-9083nogeqyazeyDEB Jailyn Seymour SchwabFacility:[facility] BellevueStart: 07-12-2023 End: 53-79-3734Czxd/qhp telephone evaluation 07-25 Franci Alvarez [facility] Work Phone: [facility] SystemComment on above: Cigarette nicotine dependence with nicotine-induced disorder (Primary Dx); Chronic respiratory failure with hypoxia, on home O2 therapy (CMS/HCC); Centrilobular emphysema (CMS/HCC); Lung noduleStart: 07-12-2023 End: 85-00-0278thlmagxtbeOLOQTIBOhio State Health Systemtart: 57-26-2295Lvcngci encounter Mendy Bansal Work Phone: mg-CT Surgery-[facility] Work Phone: Start: 73-60-7543Skdv/qhp telephone evaluation 07-25 Alfonzo Bansal Work Phone: mg-CT Surgery-[facility] [address] Work Phone: Start: 99-24-7236eqiqyjpdtpEoNancy Bansal Facility:UHCStart: 09-22-2022 End: 98-60-2537xahixlewtlLZ KIM E KNIGHTFacility:A9Jgbav: 06-28-2022 End: 65-37-4588jifpteyzztQVMD Eduardo MasFacility:9537Start: 06-09-2022 End: 40-37-5311fjkpejnxkgSR KIM E KNIGHTFacility:R6Odnjw: 05-21-2022 End: 51-88-4123iscernshbgIP KIM E KNIGHTFacility:W5Wsoqm: 59-73-9790hdwksblivp Dr. Celso SchafferiFacility:9520Start: 25-58-1930Wtnxar outpatient new 45 minutesEloy Bansal Work Phone: mg-CT Surgery-[place] Work Phone: Start: 86-69-7929Satzymd encounter procedureEloy Bansal Work Phone: [phone]-Cufeawbrdk-[place] [address] Work Phone: Start: 04-13-2022 End: 81-26-7113hxbztapzpaAB KIM E KNIGHTFacility:M8Dtjhj: 04-10-2022 End: 15-26-7249vslsdvpkvjTN ELOY BANSALFacility:M4Tgiqz: 03-24-2022 End: 89-74-9949tljiwwsvdyMZFXWZI BOESFacility:E5Ogmtf: 02-19-2022 End: 95-59-3281nruwwlhspuMVLYKUI BOESFacility:X0Qtyqi: 12-21-2021 End: 42-06-4921eyqrrswdmrZCVPUMH Ana BOESFacility:UTMCStart: 12-18-2021 End: 04-31-4423anjzfqtveoLZBNNUT BOESFacility:J8Ksucu: 11-27-2021 End: 73-66-4185tqdbjtlpsgIMGGXBK BOESFacility:N1Otbkc: 11-09-2021 End: 10-30-0599ntrmrmikoeRY ELOY BANSALFacility:D2Sexld: 10-26-2021 End: 11-97-0269uyfkfwwbznNW KIM E KNIGHTFacility:F7Xcsjo: 10-12-2021 End: 47-81-8208lbajxvuklzHF KIM E KNIGHTFacility:H1 Procedures DateProcedureProcedure DetailPerforming ClinicianArthroscopy of Dominique Bansal Work Phone: Comment on above:Right;Arthroscopy of kneeMichael NILL Biopsy of lungMichael NILL Cardiac catheterizationMichael NILL Excision of Villalobos's cyst of kneeMichael NILL Excision of cystKim Galilea Bansal Work Phone: Comment on above:R knee;Repair of meniscusMichael NILL Plan of Treatment DateCare ActivityDetailAuthorStart: 03-11-2025 End: 66-15-0715Pijmnhb encounter uydxkyooo54/07/2025 2:15 PM EDT Office Visit LACHELLE MALONEY [address] [facility] [address] [place] [address] Carri Mckeon, DO [address] [facility] [address] [place] [address] NOMMeliton SEARS GENSStart: 07-03-2024 End: 54-35-6566Okabtavlxzxb consultation with lgcpbhj6107/03/2024 12:00 PM EDT Telemedicine [facility] [address] [place] [phone] [place] [address] [place] [address] [facility]tart: 87-07-9835XRZBC-19 Vaccine ( season)COVID-19 Vaccine ( season)[facility] view: 05-06-2024 Influenza vaccinationInfluenza Vaccine (#1)[facility] Start: 80-78-7582Oofhmvwih vaccinationInfluenza Vaccine (#1)[facility]: 98-59-0247QGC High Risk: (Elderly (60+) or Population) (1 - Risk 60-74 years 1-dose series)RSV High Risk: (Elderly (60+) or Population) (1 - Risk 60-74 years 1-dose series)[facility]: 31-54-5033Ejufgo Vaccines (1 of 2)Zoster Vaccines (1 of 2) [facility]: 11-85-7816YHpC/Tdap/Td Vaccines (1 - Tdap)DTaP/Tdap/Td Vaccines (1 - Tdap)[facility]: 48-77-8843Snjgymmkd A Vaccines (1 of 2 - Risk 2-dose series)Hepatitis A Vaccines (1 of 2 - Risk 2-dose series)[facility]: 1978 Diabetes mellitus screeningDiabetes ScreeningDelaware County Hospital Start: 88-75-5571Wqukbditd C screeningHepatitis C ScreeningUnOhioHealth: 74-83-9601Dqrrcizzgopm Vaccine: Pediatrics (0 to 5 Years) and At-Risk Patients (6 to 64 Years) (1 - PCV)Pneumococcal Vaccine: Pediatrics (0 to 5 Years) and At-Risk Patients (6 to 64 Years) (1 - PCV)[facility]: 88-18-1585Wzlccvxgjwgp Vaccine: Pediatrics (0 to 5 Years) and At-Risk Patients (6 to 64 Years) (1 of 2 - PCV)Pneumococcal Vaccine: Pediatrics (0 to 5 Years) and At-Risk Patients (6 to 64 Years) (1 of 2 - PCV)[facility]: 24-59-9522GDI Vaccines (1 of 1 - Standard series) MMR Vaccines (1 of 1 - Standard series)[facility]: 93-25-1993CAPPZ-19 Vaccine (#1)COVID-19 Vaccine (#1)[facility]: 78-13-7735Yiksnizxen measurementCreatinine LevelParkwood Hospital: 99-58-3303BfmfaxdcwkdhwcnwCsruhioohssomqYjbyxtpyyt [facility]Start: 00-76-8522WWO screeningHIV ScreeningParkwood Hospital: 03-52-7279Ucfiu panelLipid PanelUnOhioHealth: 04-43-6419Egnkrohai measurementPotassium Level [facility]: 06-11-3364Mnxybnmzn for malignant neoplasm of colonUnOhioHealth: 07-87-2321Swfzpdj stimulating hormone measurementTSH LevelUnOhioHealth: 19-17-3174Vqvxrw Adult PhysicalYearly Adult PhysicalUnMagruder Memorial Hospital Payers DatePayer CategoryPayerPolicy [id number] Health InsuranceSCHOOLCRAFT [facility] [place] [id number] 2016Medicaid (Managed Care) [employer] [id number] [id number] 2.0.1.019805.3.579.2.647 [id number] 2.0.1.530864.3.579.2.873484-87-9572Ufpydfu [id number] 2.160.1.611587.3.57[id number] 2.16840.1.730012.3.579.[id number] 2.0.1.882066.3.57[id number] 2.16.840.1.852867.3.57[id number] 2.16.840.1.807520.3.579.2.33041-96-6657Orihwfr9053216 2.16.840.1.218989.3.579.2.80227-15-7793Izwoejy6972513 2.16.840.1.075135.3.579.2.21756-98-3417Uzdofng0857222 2.16.840.1.558406.3.579.2.69007-66-2344Cenlnwt2759825 2.16.840.1.335639.3.579.2.62041-78-5412Glorbim0066132 2.840.1.828042.3.57[id number] 2.840.1.108870.3.579.2.66832-32-8924Rrqhhvr2486263 2.16.840.1.971676.3.579.2.28837-34-4100Nodfnqp0192351 2.840.1.656800.3.579.2.04221-98-2415Gmgxjkh7780356 2.840.1.272486.3.57[id number] 2.16.840.1.141483.3.57[id number] 2.16840.1.106364.3.57[id number] 2.16.840.1.842404.3.579.2.625009-91-8027Prskryc20190150 2.16.840.1.035513.3.579.[id number] 2.16.840.1.518217.3.579.2.40709-21-3533Lomjmci81386613 2.16.840.1.380585.3.57[id number] 2.16.840.1.813484.3.579.2.66110-07-8342Akcmkry03546680 2.16.840.1.526343.3.579.2.16061-23-5395Rdidcxs00360013 2.16.840.1.761526.3.579.2.62196-46-4869Zplghyb09114879 2.16.840.1.467489.3.57[id number] 2.16.840.1.186964.3.579.2.217910-55-9138Ekot-mgc90513311185-61-0941Cprctyx [id number] Social History DateTypeDetailFacilityStart: 07-07-2023 End: 92-59-5074Mtvjist smokerCurrent jlnxwkCZ-Tyopyjqnxc-Jrvcfn 101 Work Phone: Comment on above:2 ppd X 44 yrs, currently 4 cig day(2021);Start: 07-07-2023 End: 75-38-2020Vpzbyva smoking status NHISSmokes tobacco dailyUnMagruder Memorial Hospital Work Phone: History of tobacco useCigarette SmokerUnMagruder Memorial Hospital Work Phone: Start: 07-07-2023 End: 47-78-2534Pumixgj use panelWooster Community Hospitaltart: 1960 Sex Assigned At BirthNot on fileUnMagruder Memorial Hospital Work Phone: Start: 07-02-2023 End: 12-08-2793Vkexkhoj to SARS-CoV-2 (event)Not sureDelaware County HospitalStart: 73-32-8248Wghuwha smoking statusLight tobacco smoker (finding) [facility] CenterkTobacco smoking statusNever [facility] Hospitaltart: 06-23-2024 End: 49-74-4475Folykwxq to SARS-CoV-2 (event)Unable to assessDelaware County Hospital Work Phone: Start: 06-26-2345Drotlxq use and exposureSmokeless tobacco non-userNOMS HealthcareStart: 03-04-2025 End: 76-42-8919Wrjuxkamj beverage intakeEx-drinker (finding)[facility] Functional Status TdkuXnnnuhlkxkBgzptzSfugvoii19-96-9695Cygjbvxdhm StatusN/AFGlenbeigh Hospital Clinical Notes 03-05-2021 to 03-11-2025 Note Date & KhurMvuuJrelrone70-75-0018 History of Present illness Narrative* Carri Mckeon DO - 03/11/2025 2:15 PM EDT Images from the original note were not included. Mike Lopez is a 64 y.o. male presents for follow up Exc. of thrombosed hemorrhoid in office HPI: HPI Leopoldo presents for follow up from I&D of [...] we can discuss resection of th residual skintag. I'll discharge him and see him PRN. documented in this encounterNOCox BransonClvubtvdmk35-96-7624 History of Present illness Narrative* Carri Mckeon, - 03/04/2025 3:30 PM EDT Images from the original note were not [...] pain. Negative for abdominal distention, diarrhea, nausea andvomiting. Musculoskeletal: Right knee pain Neurological: Positive for [...] clot was excised. Direct pressure was applied forhemastasis. Wound care instructions were reviewed. The patient tolerated the procedure well. I'll see him next week for recheck documented in this encounterSSM Saint Mary's Health CenterZhkbvzcdqx43-32-8868 NoteUT Cardiology - [facility] Subjective Mike Lopez is a [...] heart failure (CMS/HCC) Coronary artery disease involving resighini coronary artery of resighini heart without angina pectoris Impotence Chronic obstructive [...] Yes Types: Marijuana Comment: last use 08/08 [facility] Mike is seen for 6 month [...] , Rfl: sacubitril-valsartan (E (more content not included)...[facility]12-18-2024 NoteSubjective Patient ID: Mike Lopez is a 63 [...] the past 36 hour(s)). No follow-ups on file.[facility]12-06-2024 NoteVM with call back number given.[facility]12-06-2024 Note Patient: Mike Lopez Procedure Summary Date: 08/10/24 Room / Location: [facility] OPERATING ROOM 01 / [facility] Operating Room Anesthesia Start: 1351 Anesthesia Stop: [...] were no known notable events for this encounter.[facility]12-06-2024 NoteAirway Date/Time: 08/10/2024 1:59 PM Urgency: elective Airway not difficult General Information and Staff Patient location during procedure: OR Anesthesiologist: Freeman Ramirez MD Resident/WOMEN'S ACTIVITIES ADVISER/CAA: JONN Mclaughlin Performed: resident/WOMEN'S ACTIVITIES ADVISER/CAA Indications and Patient Condition Indications for airway [...] approach: 1 Number of other approaches attempted: 0UnDunlap [facility] Hospital 08-10-2024 NotePatient: Mike Lopez Procedure Information Date/Time: 08/10/24 1430 Procedure: LAPAROSCOPIC CHOLECYSTECTOMY WITH INTRAOPERATIVE CHOLANGIOGRAM Location: [facility] OPERATING ROOM 01 / [facility] Operating Room Surgeons: Denice Moreno MD Relevant Problems Cardio (+) Chronic systolic congestive heart failure (CMS/HCC) (+) Coronary artery disease involving resighini coronary artery of resighini heart without angina pectoris Endo (+) Hypothyroidism Pulmonary (+) Centrilobular emphysema (CMS/HCC) (+) Chronic obstructive lung disease (CMS/HCC) Expand All Collapse All [place] [facility] - [facility] Subjective Mike Lopez is a [...] heart failure (CMS/HCC) Coronary artery disease involving resighini coronary artery of resighini heart without angina pectoris Impotence Chronic obstructive [...] products. Plan discussed with CAA. Additional Equipment RequestsC[facility] Clinic Foundation12-06-2024 Note Relevant Hx: CAD, CHF Course: stable, controlled Daily Update: none Today's Plan: Laparoscopic cholecystectomy, possible cholangiogram Orders from past 72 hours: Full Code; Standing ceFAZolin in dextrose (iso-os) (Ancef) IVPB 2 g Full CodeCleveland Clinic Foundation10-29-2024 History of Present illness Narrative* Celso Ibarra, - 07/03/2024 12:45 PM EDT C/C: Follow up visit Telephone visit-- patient [...] OSH). Followed by Dr. Nuñez, Pulmonology, at [facility]. Patient denies any significant change in his [...] on recent imaging to have bilateral upper lobenodules. Left upper lobe nodule was 1.3 x 0.6 cm in size, right upper lobe nodule with 0.9 x 0.7 cmin size. These were reportedly new compared to [...] discussion of perhaps a cardiomyopathy. No h/o FL.Patient had a prior drinking history many years [...] nebulizer solution, Take 3 mL by nebulization every4 hours if needed., Disp: , Rfl: meclizine (Antivert) 25 mg tablet, Take by mouth. TAKE DIRECTED., Disp: , Rfl: metoprolol succinate XL (Toprol-XL) 25 mg 24 hr tablet, Take 1 tablet (25 mg) by mouth once daily.,Disp: , Rfl: mometasone-formoterol (Dulera) 200-5 mcg/actuation inhaler, [...] Results: Pathology: N/A Imagin06/12/24 CT Chest from [facility] was personally reviewed Assessment/Plan Diagnoses and all orders for this visit: Centrilobular emphysema (Multi) Lung nodule Mike Lopez is a 63 y.o. male with a significant history of COPD, moderate to severe, who presents with a lateral left upper lobe 1.[address] guided bx was non-diagnostic in June 2022. Onrecent CT from [facility] lesions are stable. Plan for repeat CT chest in [address] Nuñez will order this and have it done at [facility]. Celso Ibarra DO Thoracic & Esophageal Surgery documented in this [facility] Work Phone: 1(135) 987-714210-22-2024 NoteSubjective Patient ID: Mike Lopez is a 63 y.o. male who presents for Consult (Mike is here today for consult: Calculus of gallbladder, S/P CT abdomin and pelvis ). HPI 63 years old white male is complaining of right upper quadrant pain since 2000. Patient has COPD, chronic systolic congestive heart failure, coronary artery disease. He was referred to [facility] for symptomatic cholelithiasis. Review of [...] the past 36 hour(s)). No follow-ups on file.[facility]09-18-2024 Note Cardiovascular Medicine [facility] SUBJECTIVE Chief Complaint Patient presents with [...] heart failure (CMS/HCC) Coronary artery disease involving resighini coronary artery of resighini heart without angina pectoris Impotence Chronic obstructive [...] Final Atrial Rate 12/21/2021 93 BPM Final NH Interval 12/21/2021 140 ms Final QRS DURATION 12/21/2021 90 ms Final QT Interval 12/21/2021 330 ms Final QTC CALCULATION(BAZETT) 12/21/2021 410 ms Final P [place] 12/21/2021 72 degrees Final R-[place] 12/21/2021 76 degrees Final T Wave [place] 12/21/2021 57 degrees Final Diagnosis 12/21/2021 Final Value:Normal sinus rhythm Normal ECG No previous ECGs available Confirmed by Randolph Chandra ([id number]) on 12/22/2021 8:48:12 AM Blood testing 04/21/2023: Potassium 4.4, BUN 11, creatinine 0.85, LFTs normal, cholesterol 112, HDL 45, triglycerides 44, LDL 58, hemoglobin 14.8, platelets 213. labs- 02/19/22 BUN 11, CR 1.00- nor (more content not included)...[facility]09-18-2024 NotePt here for follow up on chronic systolic heart failure, CAD, COPD. Denies chest pain, SOB palpitations or edema Review of Systems Neurological: Positive for dizziness.[facility] 05-14-2024 NoteGeneral Surgery Office/Clinic Note Chief Complaint consultation for cholelithiasis HPI Staff 63 year old male presents on consultation from Jailyn Douglas for cholelithiasis. Patient presented toT ED 03/11 with complaint of worsening RUQ [...] htn, hyperlipidemia, COPD, chronic hypoxemic respiratory failure, referredfor abd pain and cholelithiasis; patient seen at [facility] ED 2 months ago for several day h/o upper abd pain, no N/V or bowel changes; normal labs; abd/pelvic ct scan with cholelithiasis, no gallbladder in flammation; GB US 3 weeks ago as outpatient with numerous stones, no ductal dilation, no GB wall thickening; patient reports 4 year h/o intermittent abd pain; worse with spicy and acidic foods, carbonated beverages; no h/o jaundice or pancreatitis; currently on Protonix and Pepcid; no abd operations; on baby asa daily, no NSAID use; smokes daily. patient sees Responder yearly, [facility] at [facility], reported for heart failure; and [employer], Dr Nuñez; he reports recent appointment; smokes daily; uses oxygen at night and prn during the day. Review of Systems PHQ Score Initial Depression Screen Score: 0 SCORE ROS - Provider Constitutional: no fever, no sweats, no weight loss. Eyes: no glasses, no blurred vision, no visual loss. ENMT: no dentures, no hoarseness, no swallowing difficulties, no hearing loss, no ear infection(s),no nose bleeds. Cardiovascular: normal blood pressure, no [...] tenderness, epigastrium and RUQ, no peritoneal signs nomasses, no palpable hernias, diastasis recti no, no [...] dysfunction Hyperlipidemia Hypertension Overweight (more content not included)...[facility] HospitalComment on above:Result Comment: Electronically Signed By: JAMEL TRINIDAD, Benji Patricia\Date and Time Signed: 05/14/24 16:10 [id number] History of Present illness Narrative* Celso Ibarra, DO - 07/12/2023 1:30 PM EST C/C: Follow up visit History Of Present [...] on recent imaging to have bilateral upper lobenodules. Left upper lobe nodule was 1.3 x 0.6 cm in size, right upper lobe nodule with 0.9 x 0.7 cmin size. These were reportedly new compared to [...] discussion of perhaps a cardiomyopathy. No h/o FL.Patient had a prior drinking history many years [...] nebulizer solution, Take 3 mL by nebulization every4 hours if needed., Disp: , Rfl: meclizine (Antivert) 25 mg tablet, Take by mouth. TAKE DIRECTED., Disp: , Rfl: metoprolol succinate XL (Toprol-XL) 25 mg 24 hr tablet, Take 1 tablet (25 mg) by mouth once daily.,Disp: , Rfl: mometasone-formoterol (Dulera) 200-5 mcg/actuation inhaler, [...] guided bx was non-diagnostic in June 2022. Onrecent CT from March and most recent from 06/22/23 this ANDRE lesion is stable. Stable RLL GGO as well D/w patient he can get CT chest in [address]. [address] Nuñez will order this and have it done at [facility]. Celso Ibarra DO Thoracic & Esophageal Surgery documented in this [facility] Work Phone: 1(699) 168-258410-01-2022 History of Present illness Narrative* Mr. Lopez is a 61-year-old male with a left upper lobe lung nodule (non- diagnostic biopsy in Jun 2022) who presents with surveillance imaging (at OSH). Stable 1.3 x 0.5cm left upper lobe nodule. * Patient denies any significant change in his COPD recently (followed by Dr. Nuñez), no worsening cough or worsening dyspnea.Denies recent hospitalizations. * By way of review: patient was referred to me in fall; he has a h/o moderate to severe COPD followed by Dr. Nuñez, Pulmonology. Patient was noted on recent imaging to have bilateral upper lobenodules. Left upper lobe nodule was 1.3 x 0.6 cm in size, right upper lobe nodule with 0.9 x 0.7 cmin size. These were reportedly new compared to [...] severe respiratory infection requiring 2-week hospital stay. * Patient had been worked up recently for a 'weak heart' with echo that showed EF of 53%, RVSP 22. And reported negative cardiac catheterization. There is some discussion of perhaps a cardiomyopathy. No h/o FL. Patient had a prior drinking history many years ago. * Current smoker, several cigarettes per day down from 2 packs/day. [facility] [address] Work Phone: 1(992) 540-947407-01-2021 History of Present illness Narrative* Mr. Lopez is a 61-year-old male with moderate to severe COPD followed by Dr. Nuñez, Pulmonology. Patient was noted on recent imaging to have bilateral upper lobe nodules. Left upper lobe nodule was1.3 x 0.6 cm in size, right upper lobe nodule with 0.9 x 0.7 cm in size. These were reportedly new c ompared to March 2021. The left upper lobe nodule is PET avid with SUV of 2.8, right upper lobe nodule was not PET avid. This was discussed with him by Dr. Oliver's office and he was referred to me. Patient is on 3 inhalers for his COPD. Most recent PFTs are from 2019. FEV1 at that time is 58%, FVC 79%, DLCO 64%. * Patient denies any significant change in his COPD recently, no worsening cough or worsening dyspnea. He was hospitalized in 2019 with a severe respiratory infection requiring 2-week hospital stay. Denies recent hospitalizations. Patient has additionally been worked up recently for a 'weak heart' with echo that showed EF of 53%, RVSP 22. And reported negative cardiac catheterization. There is somediscussion of perhaps a cardiomyopathy. No h/o FL. Patient had a prior drinking history many years ago. Current smoker, several cigarettes per day down from 2 packs/day. [facility] Work Phone: Evaluation + Plan note Future Appointments Appointment Date:05/17/2024 02:40:00 PM Scheduled Provider:Jailyn Blanc Location:[facility] Appointment Type: Open [facility] [place] Evaluation note* Diagnosis Cigarette nicotine dependence with nicotine-induced disorder- Primary Chronic respiratory failure with hypoxia, on home O2 therapy (CMS/HCC) Centrilobular emphysema (CMS/HCC) Lung nodule Other diseases of lung, not elsewhere classified documented in this encounter [facility] Work Phone: Evaluation note* Diagnosis Centrilobular emphysema (Multi)- Primary Lung nodule Other diseases of lung, not elsewhere classified documented in this encounter [facility] Work Phone: Evaluation note* Diagnosis Thrombosed external hemorrhoid External thrombosed hemorrhoids documented in this encounter [facility] HealthcareEvaluation note* Diagnosis Thrombosed external hemorrhoid- Primary External thrombosed hemorrhoids documented in this encounter [facility] HealthcareHospital course Narrative No data available for this section [facility] [place] [facility] Discharge instructions No data available for this section [facility] [place] Progress note No data available for this section [facility] [place] Summary Purpose Family History No Family History Records FoundUnknown Family Member Name Dates Details Family history of malignant neoplasm: Mother(V16.9, Z80.9) Status:ActiveFamily history of cardiac disorder: Father(V17.49, Z82.49) Status:Active Unknown Family Member Name Dates Details Family history of malignant neoplasm: Mother(V16.9, Z80.9) Status:ActiveFamily history of cardiac disorder: Father(V17.49, Z82.49) Status:Active Unknown Family Member Name Dates Details Family history of malignant neoplasm: Mother(V16.9, Z80.9) Status:ActiveFamily history of cardiac disorder: Father(V17.49, Z82.49) Status:Active Unknown Family Member Name Dates Details Family history of cardiac di sorder: Father(V17.49, Z82.49) Status:ActiveFamily history of malignant neoplasm: Mother(V16.9, Z80.9) Status:Active [...] section and content) DATE CREATED AUTHOR 12/16/2021 [facility] DATE CREATED AUTHOR AUTHOR'S ORGANIZ ATION 12/28/2021 [facility] DATE CREATED AUTHOR AUTHOR'S ORGANIZ ATION 06/06/2022 [facility] DATE CREATED AUTHOR AUTHOR'S ORGANIZ ATION 07/02/2022 [facility] DATE CREATED AUTHOR AUTHOR'S ORGANIZ ATION 09/28/2022 [facility] DATE CREATED AUTHOR AUTHOR'S ORGANIZ ATION 04/15/2023 [facility] DATE CREATED AUTHOR AUTHOR'S ORGANIZ ATION 05/04/2023 [facility] DATE CREATED AUTHOR AUTHOR'S ORGANIZ ATION 07/09/2024 [facility] DATE CREATED AUTHOR AUTHOR'S ORGANIZ ATION 02/27/2025 [facility] DATE CREATED AUTHOR AUTHOR'S ORGANIZ ATION 03/15/2025 [facility] DATE CREATED AUTHOR AUTHOR'S ORGANIZ ATION 03/17/2025 [facility] Care Teams (unrecognized sec tion and content) Team MemberRelationshipSpecialtyStart DateEnd Date Eloy Bansal MD [address] [facility] [place] [address] PCP - General05/13/22Team MemberRelationshipSpecialtyStart DateEnd Date Eloy Bansal MD [address] [facility] [place] [address] PCP - General05/13/22Team MemberRelationshipSpecialtyStart DateEnd [facility] Eloy Bansal MD [address] [place] [phone] PCP - GeneralFamily Medicine03/04/25Team MemberRelationshipSpecialtyStart DateEnd [facility] Eloy Bansal MD [address] [place] [address] PCP - GeneralFami Medicine03/04/25 Reason for Visit (unrecogniz ed section and content) ReasonCommentsPossible thrombosed hemorrhoidSpecialtyDiagnoses / Procedures Referred By ContactReferred To ContactGeneral Surgery Diagnoses Thrombosed external hemorrhoid Procedures [facility] OFFICE/OUTPATIENT [facility] 60 MINUTES Jailyn Douglas, MARYANNE [address] [place] [address] Phone: tel: fax: [facility] [address] [address] Phone: tel: fax: Referral IDStatusReasonStart DateExpiration DateVisits RequestedVisits [id number] [facility]ty Services Required [id number] up Exc. of thrombosed hemorrhoid in office [...] BE BASED ON THE PRIMARY CLINICAL RECORDS. [facility] [employer] [facility]. provides no warranty or guarantee of the accuracy or completeness of information in this document.
--- OUTSIDE RECORDS SUMMARY | 2025-07-18 14:49 | XMS_ITS | Clinical Summary ---
Author Organization [facility] Address [address] [place] [address] Care Team Providers Care Imaging Nurse Name Role Phone Mel Bansal MD Primary Care Provider [phone] Allergies No known active allergies Medications MedicationSigDispense QuantityRefillsLast FilledStart DateEnd DateStatus aspirin 81 MG EC tablet Take 81 mg by mouth in the morning.Active sacubitril-valsartan (Entresto) 24-26 MG tablet Take 0.5 tablets by mouth in the morning and 0.5 tablets in the evening. ctive metoprolol succinate XL (Toprol-XL) 25 MG 24 hr tablet TAKE 1/2 TABLET BY MOUTH ONCE EVERYDAYActive atorvastatin (Lipitor) 40 MG tablet Take 40 mg by mouth in the morning./ctive Dulera 200-5 MCG/ACT inhaler INHALE 2 PUFFS BY MOUTH TWICE DAILY. RINSE AFTER USEActive Spiriva Respimat 2.5 MCG/ACT inhaler 2 puffs DailyActive albuterol HFA 90 mcg/act inhaler INHALE 2 PUFFS BY MOUTH EVERY 4 HOURS NEEDED FOR SHORTNESS OF BREATHActive oxygen (O2) gas Inhale 1.5 L/min at bedtimeActive Active Problems ProblemNoted DateDiagnosed DateThrombosed external gluvzaynlm79/30/2025 Family History Medical HistoryRelationNameCommentsCancerMotherCOPDSister 1Lung cancerSister 1 Breast cancerNeg HxColon cancerNeg HxOvarian cancerNeg HxPancreatic cancerNeg Hx RelationNameStatusCommentsBrotherAlive3 brothersFatherDeceasedMotherDeceased Sister 3Eyhhbevo3- sistersSister 2Alive Social History Tobacco UseTypesPacks/DayYears UsedDateSmoking Tobacco: Every DayCigarettes Smokeless Tobacco: Never Tobacco Cessation:Ready to Q uit: No; Counseling Given: Not Answered Alcohol UseStandard Drinks/WeekCommentsNot Currently0 (1 standard drink = 0.6 oz pure alcohol)Sex and Gender InformationValueDate RecordedSex Assigned at Not on fileLegal MjoNsmm5611/17/2022 7:11 PM EDTGender IdentityNot on fileSexual OrientationNot on file Last Filed Vital Signs Vital SignReadingTime TakenCommentsBlood Mjfpvuen21/64003/04/2025 3:44 PM EDT Pulse--Temperature--Respiratory Rate--Oxygen Saturation--Inhaled Oxygen Concentration--Gggpva07.1 kg (159 lb)03/11/2025 2:26 PM EIALagmdv358.3 cm (5' 11 )03/11/2025 2:26 PM EDTBody Mass Index22.18003/11/2025 2:26 PM EDT Plan of Treatment Not on file Insurance Care Teams Team MemberRelationshipSpecialtyStart DateEnd Mel Bansal MD [address] [place] [phone] PCP - GeneralFamily Medicine03/04/25
--- OUTSIDE RECORDS SUMMARY | 2025-07-18 14:49 | XMS_ITS | Clinical Summary ---
Author Organization [facility] Address [address] [place] [address] Care Team Providers Care Tune Up Mechanic Name Role Phone Lexie Douglas LEAD MECHANIC-C Primary Care Provider [phone] Allergies No known active allergies Medications MedicationSigDispense QuantityRefillsLast FilledStart DateEnd DateStatus albuterol 90 mcg/actuation inhaler INHALE 2 PUFFS BY MOUTH EVERY 4 HOURS NEEDED FOR SHORTNESS OF BREATH 05/14/2021ctive aspirin 81 mg EC tablet Take 1 tablet every day by oral route.Active meclizine (Antivert) 25 mg tablet TAKE 1 TABLET BY MOUTH EVERY 6 HOURS NEEDED FOR HXCYLUCBT72/09/2022ctive mometasone-formoterol (Dulera 200) 200-5 mcg/actuation inhaler INHALE 2 PUFFS BY MOUTH TWICE A DAY *RINSE MOUTH AFTER USE*05/11/2021ctive ascorbic acid (Vitamin C) 1,000 mg tablet Take 1,000 mg by mouth in the morning.Active pantoprazole (ProtoNix) 40 mg EC tablet Take 40 mg by mouth before breakfast. Do not crush, chew, or split.Active famotidine (Pepcid) 20 mg tablet Take 20 mg by mouth two times daily.Active oxygen (O2) gas Inhale 1.5 L/min at bedtime. via nasal canulaActive sacubitril-valsartan (Entresto) 24-26 mg tablet Indications:Heart failure with improved ejection fraction (HFimpEF) (CMS/HCC) Take 0.5 tablets by mouth two times daily. 90 tablet [id number]/ctive metoprolol succinate XL (Toprol-XL) 25 mg 24 hr tablet Indications:Heart failure with improved ejection fraction (HFimpEF) (CMS/HCC) Take 0.5 tablets (12.5 mg) by mouth in the morning. Do not crush or chew. 45 tablet ctive atorvastatin (Lipitor) 40 mg tablet Indications:Coronary artery disease involving standing rock coronary artery of standing rock heart without angina pectorisTake 1 tablet (40 mg) by mouth in the morning. 90 tablet ctive Active Problems ProblemNoted DateDiagnosed DateAbdominal pain, right upper sqtxwney55/28/2025 Acid fwydjm8411/30/2024MI 25.0-25.9,adult11/30/20243255Ynsofyibhpipbv52/28/2025 Iroiophdupvj80/28/8079Ykawtwyhjj05/28/1554Kpqiyv87/28/2025alculus of gallbladder without cholecystitis without zhfmsjoqfno21/03/2024 Assessment & Plan (08/10/2024 1:19 PM EST): Relevant Hx: CAD, CHF Course: stable, controlled Daily Update: none Today's Plan: Laparoscopic cholecystectomy, possible cholangiogram Orders from past 72 hours: Full Code; Standing ceFAZolin in dextrose (iso-os) (Ancef) IVPB 2 g Full Code Rhinitis, gaoemmvb85Lung scvjnx23igarette nicotine dependence with nicotine-induced tvwwmndw89hronic respiratory failure with hypoxia, on home O2 ixzhecf87 Cholelithiasis without niafowvpvkaub20entrilobular emphysema Impotencehronic obstructive lung mpmwowq16HypothyroidismInduration penis qrazqden79Right inguinal eevfom03hronic systolic congestive heart ctyesnp2410/25/2022 Overview (10/25/2022): recovered EF Coronary artery disease involving standing rock coronary artery of standing rock heart without angina / Family History Medical HistoryRelationNameCommentsCancerMotherRelationNameStatusCommentsMother Social History Tobacco UseTypesPacks/DayYears UsedDateSmoking Tobacco: Every DayCigarettes Tobacco Cessation:Ready to Q uit: Not Asked; Counseling Given: Not Answered Alcohol UseStandard Drinks/WeekCommentsNot Currently0 (1 standard drink = 0.6 oz pure alcohol)20 years soberHumiliation, Afraid, Rape, and Kick questionnaire AnswerDate RecordedWithin the last year, have you been afraid of your partner or ex-partner?No06/26/2024Emotionally AbusedNot on file06/26/2024hysically Abused Not on 06/26/2024Sexually AbusedNot on file06/26/2024HQ-2AnswerDate RecordedPatient Health Questionnaire-2 Mdjcs248UT Safety & Environment AnswerDate RecordedFear of Current or Ex-PartnerNot on file10/27/2023Emotionally AbusedNot on file10/27/2023hysically AbusedNot on file10/27/2023Sexually Abused Not on file10/27/2023hysically or Sexually AbusedNot on file10/27/2023Sex and Gender InformationValueDate RecordedSex Assigned at BirthNot on fileLegal Sex Male03/03/2022 10:28 PM EDTGender IdentityNot on fileSexual OrientationNot on file Last Filed Vital Signs Vital SignReadingTime TakenCommentsBlood Zxqcolqg306/6603 2:22 PM EDT Dtqkh878611/30/2024 2:22 PM DOCZujwklsxtyv40.6 ??C (97.8 ??F)08/22/2024 2:09 PM ESTRespiratory Scxj365110/11/2023 5:30 PM ESTOxygen Bbenknzdgw78%11/30/2024 2:22 PM EDTInhaled Oxygen Concentration--Lghmte27.8 kg (165 lb)11/30/2024 2:22 PM EDT Bccccv465.9 cm (6')11/30/2024 2:22 PM EDTBody Mass Index22.38011/30/2024 2:22 PM EDT Plan of Treatment Health MaintenanceDue DateLast DoneCommentsCT Fycnsfishezi42/05/1961Colonoscopy 1960olorectal Cancer Afzccqmzx29/05/1961FIT-DNA1960FIT1960 FOBT1960Medicare Initial Physical (IPPE)1960 0375Lcgwfigzdnqgt31/05/1961 Depression Jmxtzbanq83/05/1973Pneumococcal Vaccine: Pediatrics (0 to 5 Years) and At-Risk Patients (6 to 64 Years) (1 of 2 - PCV)11/08/1979Adult Tetanus 1982Zoster Vaccines (1 of 2)2010COVID-19 Vaccine (1 - season)2025Influenza Vaccine (#1)2025HIB VaccinesAged OutNo longer eligible based on patient's age to complete this topicHPV VaccinesAged OutNo longer eligible based on patient's age to complete this topicIPV VaccinesAged OutNo longer eligible based on patient's age to complete this topicMeningococcal B VaccineAged OutNo longer eligible based on patient's age to complete this topicMeningococcal VaccineAged OutNo longer eligible based on patient's age to complete this topicRotavirus VaccinesAged OutNo longer eligible based on patient's age to complete this topic Insurance Advance Directives * Full Code (Latest Code Status on File) Date ActivatedDate ZkywtubwvsgOaxyaelu86/6/2024 1:09 PM08/10/2024 8:08 PM Care Teams Team MemberRelationshipSpecialtyStart DateEnd Date Lexie Douglas FNP-C [address] [place] [address] PCP - GeneralNurse Dhtotxjfuzqp40/22/24
[2025-07-18 15:29] LABS: Hematocrit 42.4 % (42.0-54.0); Hemoglobin 14.3 g/dL (14.0-18.0); Immature Granulocytes Abs Auto 0.01 10^3/uL (0.00-0.03); Immature Granulocytes Pct Auto 0.2 % (0.0-0.5); Lymphocytes Absolute Auto 0.9 10^3/uL (1.2-3.8); Mean Corpuscular HGB Conc 33.7 g/dL (29.9-35.2); Mean Corpuscular Hemoglobin 31.4 pg (25.9-34.0); Mean Corpuscular Volume 93.2 fL (80.0-94.0); Platelet Count 196 10^3/uL (150-450); Red Blood Count 4.55 10^6/uL (4.70-6.10); White Blood Count 5.8 10^3/uL (4.0-11.0)
== END 2025-07-18 14:44 | disposition home or self-care (01) ==
LOC: LAB 14:44
PROVIDERS: PCP Nurse Practitioner; Visit Provider Internal Medicine
DX: J43.2 Centrilobular emphysema (principal)
CPT/HCPCS: 36415; 85025

== ENCOUNTER 2025-08-19 23:45 | Emergency (ER) | payer OTHER, SELFPAY ==
--- OUTSIDE RECORDS SUMMARY | 2024-08-22 09:00 | XMS_ITS ---
Author Organization The [facility] in [place] Address [address] [place] [address] Care Team Providers Care Cream Maker Name Role Phone Luiz Sue MD Primary Care Provider Cheri Nuñez Shade Unavailable [phone] REASON FOR VISIT 6m COPD Encounters Encounter Location Date Provider Diagnosis Pulmonary Medicine [place] [address] [place] [address] 08/22/2024 Shade Nuñez Plan Of Treatment No Information Progress Notes * Mike METZGER HDOB:1960 (64 yo M)Acc No.[id number]:08/22/2024 UNLOCKED PROGRESS NOTE Follow Up Patient: Mike HIDALGO :?Shade Nuñez DODOB:1960???Age:63 Y ???Sex:MaleDate:4Phone:[phone]:[address] [place], [place] [id number]:Luiz Sue MD Subjective: * Chief Complaints: * 1 . 6m COPD. * Medical History: Objective: * Vitals: Assessment: Plan: * Treatment: * * Electronic signature of Shade Nuñez DO on 08/20/2025 at 12:16 AM ESTSign off status: PendingVisit Status:?R/S (Rescheduled) * Provider: Antonio Nuñez DO Date: 10/23/2023 Generated for Printing/Faxing/eTransmitting on:?08/20/2025 12:16 AM EST
--- OUTSIDE RECORDS SUMMARY | 2024-10-10 05:30 | XMS_ITS ---
Author Organization The [facility] in [place] Address [address] [place] [address] Care Team Providers Care Life Specialist Name Role Phone Luiz Sue MD Primary Care Provider Shade De Anda Unavailable [phone] REASON FOR VISIT 6m COPD Encounters Encounter Location Date Provider Diagnosis Pulmonary Medicine [place] [address] [place] [address] 10/10/2024 Shade Nuñez Plan Of Treatment No Information Progress Notes * Mike METZGER HDOB:1960 (64 yo M)Acc No.[id number]:10/10/2024 UNLOCKED PROGRESS NOTE Follow Up Patient: Mike HIDALGO :?Shade Nuñez DODOB:1960???Age:63 Y ???Sex:MaleDate:10/10/2024Phone:[phone]:[address] [place], [place] [address]Pcp:Luiz Sue MD Subjective: * Chief Complaints: * 1 . 6m COPD. * Medical History: Objective: * Vitals: Assessment: Plan: * Treatment: * * Electronic signature of Shade Nuñez DO on 08/20/2025 at 12:18 AM ESTSign off status: PendingVisit Status:?R/S By O/P (Rescheduled by Office/Provider) * Provider: Antonio Nuñez DO Date: 0 10/10/2024 Generated for Printing/Faxing/eTransmitting on:?08/20/2025 12:18 AM EST
--- OUTSIDE RECORDS SUMMARY | 2025-06-04 19:00 | XMS_ITS ---
Author Organization The [facility] in [place] Address [address] [place] [address] Care Team Providers Care Supervisor Abattoir Name Role Phone Luiz Sue MD Primary Care Provider Unavailabl e Provider, Radiology Unavailable [phone] Encounters Encounter Location Date Provider Diagnosis Radiology Main [place] [address] [facility] 1 [place] [address] 06/05/2025 Radiology Provider Plan Of Treatment No Information Progress Notes * Mike METZGER HDOB:1960 (64 yo M)Acc No.[id number]:06/05/2025 UNLOCKED PROGRESS NOTE Progress Note Patient: Mike HIDALGO :?Radiology ProviderDOB:1960???Age:64 Y ???Sex:MaleDate:06/05/2025External Visit ID:[id number]:[phone]: [address] [place] [address]Pcp:Luiz Sue MD Subjective: * Chief Complaints: * * Active Problem List J43.2 Centrilobular emphys veronica Modified On:08/22/2023/U Status:swknqeenkZ09.11Chronic respiratory failure with hypoxia Modified On:08/22/2023/U Status:cwskqzhhvJ66.51Long term (current) use of inhaled steroids Modified On:02/21/2023/U Status:csznsjhvvK17.10Coronary artery disease Modified On:08/22/2023/U Status:dlptxtoyyO82.9Allergic rhinitis Modified On:08/22/2023/U Status:zpaopghtcF77.22Chronic systolic congestive heart failure Modified On:08/22/2023/U Status:cbbxyhnalC36.219Cigarette nicotine dependence with nicotine-induced disorder Modified On:08/22/2023/U Status:axilgnfqjZ49.8Multiple pulmonary nodules Modified On:08/22/2023/U Status:confirmed * Medical History: Objective: * Vitals: Assessment: Plan: * Treatment: * * Electronic signature of Radiology Provider on 08/20/2025 at 12:18 AM ESTSign off status: PendingVisit Status:?CANC (Cancelled) * Provider: Efrain guzman Provider Date: Generated for Printing/Faxing/eTransmitting on:?08/20/2025 12:18 AM EST
--- OUTSIDE RECORDS SUMMARY | 2025-06-25 08:00 | XMS_ITS ---
Author Organization The [facility] in [place] Address [address] [place] [address] Care Team Providers Care Birth Attendant Name Role Phone Luiz Sue MD Primary Care Provider Shade De Anda Unavailable [phone] REASON FOR VISIT 8m F/U - COPD, LDCT Encounters Encounter Location Date Provider Diagnosis Pulmonary Medicine [place] [address] [place] [address] 06/25/2025 Shade Nuñez Plan Of Treatment No Information Progress Notes * Mike METZGER HDOB:1960 (64 yo M)Acc No.[id number]:06/25/2025 UNLOCKED PROGRESS NOTE Follow Up Patient: Mike HIDALGO :?Shadestacie Nuñez DODOB:1960???Age:64 Y ???Sex:MaleDate:06/25/2025Phone:[phone]:[address] [place], [place] [address]Pcp:Luiz Sue MD Subjective: * Chief Complaints: * 1 . 8m F/U - COPD, LDCT. * Medical History: Objective: * Vitals: Assessment: Plan: * Treatment: * * Electronic signature of Shade Nuñez DO on 08/20/2025 at 12:17 AM ESTSign off status: PendingVisit Status:?CANC (Cancelled) * Provider: Antonio Nuñez DO Date: Generated for Printing/Faxing/eTransmitting on:?08/20/2025 12:17 AM EST
[2025-08-19 23:48] VITALS: BP 117/70; PULSE 114; TEMP 37.1; O2SAT 93; BMI 22.3
--- NOTE | 2025-08-20 00:07 | ED.FALL1 ---
HPI HPI - Fall General Chief Complaint: Fall Stated Complaint: FALL Time Seen by Provider: 08/20/25 00:02 Source: patient Mode of arrival: Wheelchair History of Present Illness HPI Narrative: history of COPD -2 dependent. takes ASA daily . slipped and fell onto the ground striking his left posterior rib cage and flank about 5 hours ago. Also struck his head. No LOC. No nausea. Presents because of rib and flank pain Related Data Home Medications ?Medication ?Instructions ?Recorded ?Confirmed albuterol sulfate 90 mcg/actuation 2 inh inhalation Q4H PRN shortness 03/11/24 08/19/25 aerosol inhaler of breath or wheezing atorvastatin 40 mg tablet 40 mg PO DAILY 03/11/24 08/19/25 metoprolol succinate 25 mg 12.5 mg PO DAILY 03/11/24 08/19/25 tablet,extended release 24 hr mometasone-formoterol HFA 200 2 inh inhalation Q12H 03/11/24 08/19/25 mcg-5 mcg/actuation aerosol inhaler (Dulera) sacubitril 24 mg-valsartan 26 mg 0.5 tab PO BID 03/11/24 08/19/25 tablet (Entresto) tiotropium bromide 2.5 2 inh inhalation Q24H 03/11/24 08/19/25 mcg/actuation mist for inhalation (Spiriva Respimat) aspirin 81 mg chewable tablet 81 mg PO DAILY 02/15/25 08/19/25 (Children's Aspirin) ipratropium 0.5 mg-albuterol 3 mg 3 ml inhalation Q6H PRN shortness 08/19/25 08/19/25 (2.5 mg base)/3 mL nebulization of breath or wheezing soln oxygen-air delivery systems 08/19/25 08/19/25 Allergies Allergy/AdvReac Type Severity Reaction Status Date / Time No Known Drug Allergies Allergy Verified 08/19/25 23:53 Opioid HPI Opioid Management Most Recent Pain and Opioid Data: Last Pain Scale 10 Today, 00:00 Review of Systems ROS Status of ROS 10 or more systems reviewed and unremarkable except as noted in history and below PFS PFS Medical History FH: cholecystectomy ?Z83.79 - Family history of other diseases of the digestive system (ICD-10) COPD (chronic obstructive pulmonary disease) ?J44.9 - Chronic obstructive pulmonary disease, unspecified (ICD-10) Surgical History H/O knee surgery ?Z98.890 - Other specified postprocedural states (ICD-10) Social History Little interest or pleasure in doing things: not at all Feeling down, depressed, or hopeless: not at all Exam Constitutional Vital Signs, click to edit/add: Last Vital Signs Temp 98.7 F 08/19/25 23:48 Pulse 81 08/20/25 02:58 Resp 20 08/20/25 02:58 BP 112/66 08/20/25 02:58 Pulse Ox 96 08/20/25 02:58 O2 Del Method Nasal Cannula 08/20/25 00:09 O2 Flow Rate 1.5 08/20/25 02:58 Common normals: no apparent distress, average body habitus, oriented x3, no limitations, healthy appearing, alert and well nourished [facility] Common normals: normocephalic and head/scalp atraumatic Eye Common normals: EOMs intact bilaterally and conjunctivae normal Neck & C-Spine Common normals: full ROM Chest Other: inferior pos. rib cage tenderness-Left Respiratory Common normals: normal respiratory effort, no retractions and no use of accessory muscles Cardio Common normals: regular rate, regular rhythm, S1 normal heart sound and S2 normal heart sound Back & Pelvis General back: CVA tenderness CVA tenderness: left Extremity Common normals: normal to inspection and full ROM Neuro Common normals: oriented x3, CN's II-XII intact bilaterally, moves all extremities and no focal motor deficits Psych Appearance: grossly normal Course Vital Signs Vital signs: Vital Signs Temperature 98.7 F 08/19/25 23:48 Pulse Rate 114 H 08/19/25 23:48 Respiratory Rate 20 08/19/25 23:48 Blood Pressure 117/70 08/19/25 23:48 Pulse Oximetry 93 L 08/19/25 23:48 Oxygen Delivery Method Room Air 08/19/25 23:48 Temperature 98.7 F 08/19/25 23:48 Pulse Rate 81 08/20/25 02:58 Respiratory Rate 20 08/20/25 02:58 Blood Pressure 112/66 08/20/25 02:58 Pulse Oximetry 96 08/20/25 02:58 Oxygen Delivery Method Nasal Cannula 08/20/25 00:09 Oxygen Delivery Flow Rate 1.5 08/20/25 02:58 MDM - Fall MDM Narrative Medical decision making narrative: patient fell and presents complaining of pain of left posterior rib cage and left CVA area. Exam with tenderness at these sites. No ecchymosis or crepitus. CT with findings of L2left transverse process fracture Lab Data Labs: Lab Results 08/20/25 08/20/25 Range/Units 00:20 03:10 WBC 13.0 H (4.0-11.0) 10^3/uL RBC 4.65 L (4.70-6.10) 10^6/uL Hgb 15.0 (14.0-18.0) g/dL Hct 42.9 (42.0-54.0) % MCV 92.3 (80.0-94.0) fL MCH 32.3 (25.9-34.0) pg MCHC 35.0 (29.9-35.2) g/dL RDW 13.2 (11.0-15.0) % Plt Count 202 (150-450) 10^3/uL MPV 11.5 (9.5-13.5) fL Neut % (Auto) 81.8 H (43.0-75.0) % Lymph % (Auto) 10.1 L (20.5-60.0) % [place] % (Auto) 7.3 (1.7-12.0) % Eos % (Auto) 0.0 L (0.9-7.0) % Baso % (Auto) 0.5 (0.2-2.0) % Neut # (Auto) 10.7 H (1.4-6.5) 10^3/uL Lymph # (Auto) 1.3 (1.2-3.8) 10^3/uL [place] # (Auto) 1.0 H (0.3-0.8) 10^3/uL Eos # (Auto) 0.0 (0.0-0.7) 10^3/uL Baso # (Auto) 0.1 (0.0-0.1) 10^3/uL Abs Immat Gran (auto) 0.04 H (0.00-0.03) 10^3/uL Imm/Tot Granulo (auto) 0.3 (0.0-0.5) % Sodium 140 (136-145) mmol/L Potassium 3.9 (3.5-5.1) mmol/L Chloride 100 (98-107) mmol/L Carbon Dioxide 30.8 (21.0-32.0) mmol/L Anion Gap 13.1 BUN 12.0 (7.0-18.0) mg/dL Creatinine 0.88 (0.70-1.30) mg/dL Est GFR ( Amer) >60 (>=60 mL/min/1.73m^2) Est GFR (Non-Af Amer) >60 (>=60 mL/min/1.73m^2) BUN/Creatinine Ratio 13.6 Glucose 128 H (74-106) mg/dL Lactate 1.2 (0.4-2.0) mmol/L Calcium 8.8 (8.5-10.1) mg/dL Total Bilirubin 1.3 H (0.2-1.0) mg/dL AST 17 (15-37) U/L ALT 28 (16-63) U/L Alkaline Phosphatase 97 (46-116) U/L Total Protein 6.8 (6.4-8.2) g/dL Albumin 4.0 (3.4-5.0) g/dL Globulin 2.8 g/dL Albumin/Globulin Ratio 1.4 Urine Color Lt. yellow (YELLOW) Urine Clarity Clear (CLEAR) Urine pH 7.0 (5.0-9.0) Ur Specific [place] <=1.005 A (1.005-1.025) Urine Protein Negative (NEG/TRACE) mg/dL Urine Glucose (UA) Negative (NEGATIVE) mg/dL Urine Ketones Negative (NEGATIVE) mg/dL Urine Occult Blood Negative (NEGATIVE) Urine Nitrite Negative (NEGATIVE) Urine Bilirubin Negative (NEGATIVE) Urine Urobilinogen 1.0 (0.2-1.0) EU/dL Ur Leukocyte Esterase Negative (NEGATIVE) Urine RBC None seen (0-2) #/HPF Urine WBC None seen (NONE SEEN) #/HPF Ur Squamous Epith Cells None seen (NONE/RARE) #/LPF Urine Crystals None seen (None Seen) #/HPF Urine Bacteria None seen (NONE SEEN) #/HPF Urine Casts None seen (NONE SEEN) #/LPF Urine Mucus None seen (NONE SEEN) Ur Culture Indicated? No Discharge Plan Discharge Chief Complaint: Fall Clinical Impression: Closed fracture of transverse process of lumbar vertebra, Contusion of rib Patient Disposition: Home, Self-Care Prescriptions / Home Meds: No Action albuterol sulfate 90 mcg/actuation HFA aerosol inhaler 2 inh INHALATION Q4H PRN (Reason: shortness of breath or wheezing) atorvastatin 40 mg tablet 40 mg PO DAILY metoprolol succinate 25 mg tablet extended release 24 hr 12.5 mg PO DAILY Dulera 200-5 mcg/actuation HFA aerosol inhaler 2 inh INHALATION Q12H sacubitril-valsartan [Entresto] 24-26 mg tablet 0.5 tab PO BID Spiriva Respimat 2.5 mcg/actuation mist 2 inh INHALATION Q24H aspirin [Children's Aspirin] 81 mg tablet,chewable 81 mg PO DAILY ipratropium-albuterol 0.5 mg-3 mg(2.5 mg base)/3 mL solution for nebulization 3 ml INHALATION Q6H PRN (Reason: shortness of breath or wheezing) (DME) oxygen-air delivery systems Device See Rx Instructions .ROUTE Rx Instructions: As directed Print Language: Upper Sorbian Instructions: Rib Contusion (ED), Transverse Process Fracture (ED) Additional Instructions: follow up with your doctor this week for recheck Referrals: JAILYN CARNES [Primary Care Provider, MILL CRANE OPERATOR] - 1 week
[2025-08-20 00:09] VITALS: O2SAT 94
[2025-08-20 00:10] VITALS: PULSE 110
--- OUTSIDE RECORDS SUMMARY | 2025-08-20 00:17 | XMS_ITS | Patient Health Record ---
Author Organization [facility] [place] Address [address] [place] [address] Care Team Providers Care Food Service Assistant Name Role Phone Luiz Sue MD Primary Care Provider Unavailabl e Provider, Radiology Unavailable [phone] Shade Nuñez Unavailable [phone] Allergies No Known Allergies Results Component Value Reference Range Notes CBC AUTO DIFF (Not yet revie wed by provider) Interpretation: Performing Lab: Notes/Report: [facility] , White Blood Count 5.8 4.0-11.0 10 3/uL Red Blood Count4.554.70-6.10 10 6/yYYbkqvrdzuj08.314.0-18.0 g/pKIzzuywndde86.4 42.0-54.0 %Mean Corpuscular Henclz80.280.0-94.0 fLMean Corpuscular Hemoglobin 31.425.9-34.0 pgMean Corpuscular HGB Conc33.729.9-35.2 g/dLRed Cell Distribution Width13.211.0-15.0 %Platelet Qezjf612472-374 10 3/uLMean Platelet Ltwtbj56.89.5- 13.5 fLNeutrophils Percent Auto73.743.0-75.0 %Lymphocytes Percent Auto16.220.5- 60.0 %Monocytes Percent Auto9.21.7-12.0 %Eosinophils Percent Auto0.00.9-7.0 % Basophils Percent Auto0.70.2-2.0 %Immature Granulocytes Pct Auto0.20.0-0.5 % Neutrophils Absolute Auto4.21.4-6.5 10 3/uLLymphocytes Absolute Auto0.91.2-3.8 10 3/uLMonocytes Absolute Auto0.50.3-0.8 10 3/uLEosinophils Absolute Auto0.00.0- 0.7 10 3/uLBasophils Absolute Auto0.00.0-0.1 10 3/uLImmature Granulocytes Abs Auto0.010.00-0.03 10 3/uLPerforming Lab:see noteML - [facility] Reason For Referral No Information Medications Medication [...] W/U Status Risk Notes Problem Centrilobular emphysema (70290846) Centri lobular emphysema (J43.2) ActiveconfirmedDulera + Spiriva > Symbicort + Spiriva > TrelegyProblemChronic respiratory failure (61597487)Chronic respiratory failure with hypoxia (J96.11) ActiveconfirmedProblemLong-term current use of inhaled steroid (272809266)termination clerk (current) use of inhaled steroids (Z79.51)ActiveconfirmedProblemCoronary artery disease (34895298)Coronary artery disease (I25.10)ActiveconfirmedProblem Allergic rhinitis (42232055)Allergic rhinitis (J30.9)ActiveconfirmedProblem Chronic systolic heart failure (102536145)Chronic systolic congestive heart failure (I50.22)ActiveconfirmedProblemMental disorder caused by drug (695661313) Cigarette nicotine dependence with nicotine-induced disorder (F17.219)Active vhfqgqzcn4ehe x 44 years minimumProblemMultiple pulmonary nodules (107404939) Multiple pulmonary nodules (R91.8)Activeconfirmed Vital Signs Heart Rate 101 /min 10/17/2024 Zueqaavxztt16.9 degrees Qfeheqpnbg07/12/2025Respiratory Rate18 /min10/17/2024 Ombswogr32 %10/17/2024lood pressure dxrhebdbd56 mm Hg10/17/20249591Rlxbpo44 in 10/17/2024lood pressure rqewfdcl039 mm Hg10/17/20249399Lhpsxi136.0 lbs10/17/2024MI 23.96 kg/m210/17/2024 Encounters Encounter Location Date Provider Diagnosis Pulmonary Medicine [address] [place] [address] 10/17/2024 [facility] Multiple pulmonary nodules R91.8 ; Centrilobular emphysema J43.2 ; Chronic respiratory failure with hypoxia J96.11 ; Cigarette nicotine dependence with nicotine-induced disorder F17.219 ; Encounter for screening for malignant neoplasm of respiratory organs Z12.2 and assisted (current) use of inhaled steroids Z79.51 Pul[facility] [address] [place] [address] 08/20/2024 [facility] Pulmonary Medicine [address] [place] [address]/20/2025 [facility] [address] [place] [address] 03/13/2025[facility] Assessments Encounter Date Diagnosis (ICD Code) Assessment [...] respiratory failure with hypoxia (ICD-10 - J96.11) Ypgs-ys-uckp encounter performed with the patient to document [...] on it. LDCT will be due 06/2025. 10/17/2024[facility] for screening for malignant neoplasm of respiratory [...] after inhaled corticosteroid use. Plan Of Treatment Pending Test Test Name Order Date CBC AUTO DIFF 07/18/2025 Future Test Test Name Order Date CT Chest Low Dose for Screening* 025 Insurance Providers Payer Name Payer Address Payer Phone Subscriber Number Group Number Insured Name Patient Relationship to Insured Coverage Start Date Coverage End Date [employer] [place] [employer] [address] [place] [address] [id number] Javad Lopezelf - patient is the [id number] 2022 Medical (General) History Medical History History ICD Code Centrilobular emphysema J43.2 Multiple pulmonary nodules R91.8 Chronic respiratory failure with hypoxia J96.11 Allergic rhinitis J30.9 Coronary artery disease I25.10 Chronic systolic congestive heart failur e I50.22 Hypothyroidism E03.9 Cigarette nicotine dependence with nicot ine-induced disorder F17.219 assisted (current) use of inhaled stero ids Z79.51 Surgical History Surgery Date(Month/Year) cyst removal right knee arthroscopyLung Zjrdfy0706/29/2022ardiac Olrawomlqpzlnhz17/18/2022 nvzptwrnvvhjyky59/06/2024
--- OUTSIDE RECORDS SUMMARY | 2025-08-20 00:17 | XMS_ITS | Clinical Summary ---
Author Organization [facility] Address [address] [place] [address] Phone Care Team Providers Care Calender Worker Helper Name Role Phone Mel Bansal MD Primary Care Provider [phone] Allergies No known active allergies Medications MedicationSigDispense [...] ProblemNoted DateDiagnosed DateCAD (coronary artery disease)07/10/2023 Centrilobular jhukwwdon15/05/2023holelithiasis without ghytiiulcbgmo54/05/2023 Chronic respiratory failure with hypoxia, on home O2 jvtjngj8707/10/2023igarette nicotine dependence with nicotine-induced umhvshdi20/05/2023Hypothyroid 07/10/2023Lung dtfxwe4007/10/2023Overt chronic systolic congestive heart failure 07/10/2023Rhinitis, muzwsfom74/05/2023 Encounters DateTypeDepartmentCare TmpsWwacnjifuni17/18/2025 4:01 PM EST - 07/23/2025 11:59 PM ESTHospital Encounter [facility] [address] [facility] [place] [address] Discharge Disposition: Home07/22/2025bstract [facility] [address] [place] [address] Shahla Galo DO from Last 3 Months Family History Medical HistoryRelationNameCommentscardiac disorderFathermalignant neoplasm MotherRelationNameStatusCommentsFatherAliveMother Social History Tobacco UseTypesPacks/DayYears UsedDateSmoking Tobacco: Every DayCigarettes Tobacco Cessation:Ready to Q uit: Not Asked; Counseling Given: Not Answered Sex and Gender InformationValueDate RecordedSex Assigned at BirthNot on file Legal YwoOlze31/26/2022 2:48 PM ESTGender IdentityNot on fileSexual Orientation Not on file Last Filed Vital Signs Vital SignReadingTime TakenCommentsBlood Vbsjbaik608/6909 10:53 AM EDT Nwryl65375/08/2022 10:53 AM RSVRwmkplfnsdo02.2 ??C (97.1 ??F)05/13/2022 10:53 AM EDTRespiratory Mrko917105/13/2022 10:53 AM EDTOxygen Qgbzjdjmqi67%05/13/2022 10:53 AM EDTInhaled Oxygen Concentration--Zoqkkx76 kg (169 lb 12.1 oz)06/28/2022 9:45 AM OJYPkqltx305.8 cm (5' 11.97 )06/28/2022 9:45 AM EDTBody Mass Index23.04 06/28/2022 9:45 AM EDT Plan of Treatment Health MaintenanceDue DateLast DoneCommentsCT Ndynssqvsswo66/05/1961Colonoscopy 1960olorectal Cancer Waevaebjy53/05/1961Creatinine Level1960 Pvfxirqjlrlodj96/05/1961FIT-DNA (Cologuard)1960FIT1960HIV Screening 1960ipid Panel1960otassium Level1960 9199Ocxhgshqbohnk17/05/1961 TSH Level1960Yearly Adult Wswicuqj39/05/1961MMR Vaccines (1 of 1 - Standard series)1961Hepatitis C Nhajryrfd72/05/1979Pneumococcal Vaccine (1 of 2 - PCV)11/08/1979DTaP/Tdap/Td Vaccines (1 - Tdap)1982PSA Prostate Cancer Lkkxzlplx71/05/2011RSV High Risk: (Elderly (60+) or Population) (1 - Risk 50-74 years 1-dose series)2010Zoster Vaccines (1 of 2)2010 Influenza Vaccine (#1)5COVID-19 Vaccine (1 - season)2025 Diabetes Gegpiweqq46HIB VaccinesAged OutNo longer eligible based on patient's [...] on patient's age to complete this topic Procedures Procedure NamePriorityDate/TimeAssociated DiagnosisCommentsCT TRANSFER OF OUTSIDE URJBEPdkyfgj75/18/2025 4:02 PM EST from Last 3 Months Results * CT transfer of outside films (07/23/2025 4:02 PM EST)Specimen (Source) Anatomical Location / LateralityCollection Method / VolumeCollection Time Received Time Narrative IMAGING - 07/23/2025 4:05 PM EST Outside images for comparison or treatment purposes, not interpreted by Radiologists. Authorizing ProviderResult TypeResult StatusJillian N Sintuani DOIMG CT PROCEDURESFinal ResultPerforming OrganizationAddressCity/State/ZIP CodePhone Number IMAGING from Last 3 Months Insurance Care Teams Team MemberRelationshipSpecialtyStart DateEnd Mel Bansal MD [address] [place] [address] [facility]05/13/22
--- OUTSIDE RECORDS SUMMARY | 2025-08-20 00:18 | XMS_ITS | Clinical Summary ---
Author Organization [facility] Address [address] [place] [address] Care Team Providers Care Gunner'S Mate M Name Role Phone Lexie Douglas GROUT PUMP OPERATOR-C Primary Care Provider [phone] Allergies No known active allergies Medications MedicationSigDispense QuantityRefillsLast FilledStart DateEnd DateStatus albuterol 90 mcg/actuation inhaler INHALE 2 PUFFS BY MOUTH EVERY 4 HOURS NEEDED FOR SHORTNESS OF BREATH 05/14/2021ctive aspirin 81 mg EC tablet Take 1 tablet every day by oral route.Active meclizine (Antivert) 25 mg tablet TAKE 1 TABLET BY MOUTH EVERY 6 HOURS NEEDED FOR YCFRFAADE39/09/2022ctive mometasone-formoterol (Dulera 200) 200-5 mcg/actuation inhaler INHALE [...] by mouth two times daily. 90 tablet 303//[id number]/ctive metoprolol succinate XL (Toprol-XL) 25 mg 24 hr tablet Indications:Heart failure with improved ejection fraction (HFimpEF) (CMS/HCC) Take 0.5 tablets (12.5 mg) by mouth in the morning. Do not crush or chew. 45 tablet ctive atorvastatin (Lipitor) 40 mg tablet Indications:Coronary artery disease involving little traverse coronary artery of little traverse heart without angina pectorisTake 1 tablet (40 mg) by mouth in the morning. 90 tablet ctive Active Problems ProblemNoted DateDiagnosed DateAbdominal pain, right upper kccbcyjf46/28/2025 Acid svpysz0211/30/2024MI 25.0-25.9,adult11/30/20246515Qrrlkerokbyrnf64/28/2025 Jixnilvvbjqs60/28/3461Hmvxgmqjby34/28/4904Nwcbay20/28/2025alculus of gallbladder without cholecystitis without lqjmzrxttua25/03/2024 Assessment & Plan (08/10/2024 1:19 PM EST): Relevant Hx: CAD, CHF Course: stable, controlled Daily Update: none Today's Plan: Laparoscopic cholecystectomy, possible cholangiogram Orders from past 72 hours: Full Code; Standing ceFAZolin in dextrose (iso-os) (Ancef) IVPB 2 g Full Code Rhinitis, cvgdnbmd34Lung ykugni45igarette nicotine dependence with nicotine-induced zxsourmo70hronic respiratory failure with hypoxia, on home O2 iyyhdym89 Cholelithiasis without omlnaiaywevzo49entrilobular emphysema Impotencehronic obstructive lung lejvbcn95HypothyroidismInduration penis jenngije05Right inguinal cqzhpe42hronic systolic congestive heart txovrqa0010/25/2022 Overview (10/25/2022): recovered EF Coronary artery disease involving little traverse coronary artery of little traverse heart without angina ojntjdok71/ Family History Medical HistoryRelationNameCommentsCancerMotherRelationNameStatusCommentsMother Social History Tobacco [...] 06/26/2024Sexually AbusedNot on file06/26/2024HQ-2AnswerDate RecordedPatient Health Questionnaire-2 Vrdme470UT Safety & Environment AnswerDate RecordedFear of Current or Ex-PartnerNot on file10/27/2023Emotionally AbusedNot on file10/27/2023hysically AbusedNot on file10/27/2023Sexually Abused Not on file10/27/2023hysically or Sexually AbusedNot on file10/27/2023Sex and Gender InformationValueDate RecordedSex Assigned at BirthNot on fileLegal Sex Male03/03/2022 10:28 PM EDTGender IdentityNot on fileSexual OrientationNot on file Last Filed Vital Signs Vital SignReadingTime TakenCommentsBlood Xtgfqiog513/6603 2:22 PM EDT Ztibm931411/30/2024 2:22 PM TOXBehcayrqscm61.6 ??C (97.8 ??F)08/22/2024 2:09 PM ESTRespiratory Obms843910/11/2023 5:30 PM ESTOxygen Jyycvxqlnu23%11/30/2024 2:22 PM EDTInhaled Oxygen Concentration--Skmofv08.8 kg (165 lb)11/30/2024 2:22 PM EDT Hubwjd521.9 cm (6')11/30/2024 2:22 PM EDTBody Mass Index22.38011/30/2024 2:22 PM EDT Plan of Treatment Health MaintenanceDue DateLast DoneCommentsCT Acanzmrqtxto85/05/1961Colonoscopy 1960olorectal Cancer Kcesbolyn22/05/1961FIT-DNA1960FIT1960 FOBT1960Medicare Initial Physical (IPPE)1960 3153Rpjxobvwjsfke14/05/1961 Depression Rbsfsurgc90/05/1973Pneumococcal Vaccine: Pediatrics (0 to 5 Years) and [...] (Latest Code Status on File) Date ActivatedDate MzcyiufjhbxGkresbnn21/6/2024 1:09 PM08/10/2024 8:08 PM Care Teams Team MemberRelationshipSpecialtyStart DateEnd Date Lexie Douglas FNP-C [address] [place] [address] PCP - GeneralNurse Hzhoaijohsuq20/22/24
--- OUTSIDE RECORDS SUMMARY | 2025-08-20 00:18 | XMS_ITS | Clinical Summary ---
Author Organization [facility] Address [address], [address] [place] [address] Care Team Providers Care Software Engineer Kernel Name Role Phone Lexie Douglas APRN - MARYANNE Primary Care Provider [phone] Allergies No known active allergies Medications MedicationSigDispense [...] into the lungs daily 1 each 5Active Active Problems ProblemNoted DateDiagnosed DateCentrilobular emphysema Assessment [...] & Plan (07/16/2025 4:28 PM EST): A yitm-ki-wadu encounter was performed with the patient today [...] LUNG CANCER SCREENING (INITIAL/ANNUAL); Future Encounters DateTypeDepartmentCare GuxpDglfvtuzkgf96/14/2025Orders Only [facility] Pulmonology [address], [address] [place] [address] Harris Haskins MA Centrilobular emphysema (HCC)07/16/2025 3:00 PM ESTOffice Visit [facility] Pul[facility] [address], [address] [place] [address] Shade Nuñez DO Centrilobular emphysema (Primary Dx); Chronic respiratory failure with hypoxia; Cigarette nicotine dependence with nicotine-induced disorder; Multiple pulmonary nodules; nursing home (current) use of inhaled steroids; Encounter for screening for lung dtvjjx7507/16/2025bstract [facility] Pulmonology [address], [address] [place] [address] Shade Nuñez DO 06/14/2025bstract [facility] Pulmonology [address] [place] [address] Shade Nuñez DO from Last 3 Months Family History Medical HistoryRelationNameCommentsHeart DiseaseFatherCancerMotherRelationName StatusCommentsFatherMother Social History Tobacco UseTypesPacks/DayYears UsedDateSmoking Tobacco: Every DovCpdcdjwcbr567.1 Started: 07/15/1981Smokeless Tobacco: Never Tobacco Cessation:Ready to Q uit: No; Counseling Given: Yes Alcohol UseStandard Drinks/WeekCommentsNot Currently0 (1 standard drink = 0.6 oz pure alcohol)Sex and Gender InformationValueDate RecordedSex Assigned at Male06/13/2025 4:17 PM EDTLegal NuvSxqb0910/15/2012 2:57 PM ESTGender IdentityMale 06/13/2025 4:17 PM EDTSexual NjcvwtlveezJdsgdxug53/09/2025 4:17 PM EDT Last Filed Vital Signs Vital SignReadingTime TakenCommentsBlood Thbhfqph307/7007/16/2025 3:02 PM EST Opsqf087607/16/2025 3:02 PM CUSFwbqnlhtuus44.2 ??C (97.1 ??F)07/16/2025 3:02 PM ESTRespiratory Nune456309/15/2024 3:02 PM ESTOxygen Wabgrekews59%07/16/2025 3:02 PM ESTon room airInhaled Oxygen Concentration--Ddrfdt80.9 kg (156 lb 6.4 oz) 07/16/2025 3:02 PM XRKVzolrg940.3 cm (5' 11 )07/16/2025 3:02 PM ESTBody Mass Index21.8107/16/2025 3:02 PM EST Plan of Treatment DateTypeDepartmentCare Team (Latest Contact Info)Rwwhynxvfvd61/17/2026 2:00 PM ESTOffice Visit [facility] Pul[facility] [address], [address] [place], [place] [address] Shade Nuñez DO [address] [place] [address] 3 MO. F/U COPDHealth MaintenanceDue DateLast FdksNufuffszSnhyjo79/05/1971 Depression Ckyogf8911/07/1972HIV adxjkt6111/08/1975Hepatitis C nqcscn7111/07/1978 DTaP/Tdap/Td vaccine (1 - Tdap)11/08/1979Pneumococcal 50+ years Vaccine (1 of 2 - PCV)11/08/19791181Ltqpowvwkmv79/05/2006Colorectal Cancer Ghhkeu4511/07/2005FIT/FOBT: Average risk2005Fecal-DNA (Cologuard): Average risk2005 Sigmoidoscopy/CT vtowndwretgm86/05/2006Shingles vaccine (1 of 2)2010 Respiratory Syncytial Virus (RSV) or age 60 yrs+ (1 - Risk 60-74 years 1-dose series)2020ung Cancer Screening &/or Lteifhlvuv33/24/2023 06/28/2022Flu vaccine (#1)04/05/2025OVID-19 Vaccine ( season) 2025Hepatitis A vaccineAged OutNo [...] to complete this topic Procedures Procedure NamePriorityDate/TimeAssociated DiagnosisCommentsCBC WITH AUTO JZWYLBUFHXIRUxhjeiy37/13/2025 2:53 PM EST Centrilobular emphysema (HCC) from Last 3 Months Results * CBC with Auto Differential (07/18/2025 2:53 PM EST)ComponentValueRef RangeTest MethodAnalysis TimePerformed AtPathologist SignatureWBCOUTSIDE LAB, SEE SCANNED ORDERSRBCOUTSIDE LAB, SEE SCANNED ORDERSHemoglobinOUTSIDE LAB, SEE SCANNED ORDERSHematocritOUTSIDE LAB, SEE SCANNED ORDERSMCVOUTSIDE LAB, SEE SCANNED ORDERSMCHOUTSIDE LAB, SEE SCANNED ORDERSMCHCOUTSIDE LAB, SEE SCANNED ORDERSPlateletsOUTSIDE LAB, SEE SCANNED ORDERSRDWOUTSIDE LAB, SEE SCANNED ORDERSMPVOUTSIDE LAB, SEE SCANNED ORDERSNeutrophils %OUTSIDE LAB, SEE SCANNED ORDERSLymphocytes %OUTSIDE LAB, SEE SCANNED ORDERSMonocytes %OUTSIDE LAB, SEE SCANNED ORDERSEosinophils %OUTSIDE LAB, SEE SCANNED ORDERSBasophils %OUTSIDE LAB, SEE SCANNED ORDERSNeutrophils AbsoluteOUTSIDE LAB, SEE SCANNED ORDERS Lymphocytes AbsoluteOUTSIDE LAB, SEE SCANNED ORDERSMonocytes AbsoluteOUTSIDE LAB, SEE SCANNED ORDERSEosinophils AbsoluteOUTSIDE LAB, SEE SCANNED ORDERS Basophils AbsoluteOUTSIDE LAB, SEE SCANNED ORDERSSpecimen (Source)Anatomical Location / LateralityCollection Method / VolumeCollection TimeReceived Time BloodBLOOD SPECIMEN / Umhkclv3807/18/2025 2:53 PM EST Narrative Authorizing ProviderResult TypeResult StatusNathan Samsa DOHEMATOLOGY ORDERABLES Final ResultPerforming OrganizationAddressCity/State/ZIP CodePhone Number OUTSIDE LAB, SEE SCANNED ORDERS from Last 3 Months Insurance Care Teams Team MemberRelationshipSpecialtyStart DateEnd Date Lexie Douglas APRN - MARYANNE [address] [place] [address] PCP - Ujgsfty12/9/25
--- OUTSIDE RECORDS SUMMARY | 2025-08-20 00:18 | XMS_ITS | Clinical Summary ---
Author Organization [facility] Address [address] [place] [address] Care Team Providers Care Crepe Sole Scourer Name Role Phone Mel Bansal MD Primary Care Provider [phone] Allergies No known active allergies Medications MedicationSigDispense [...] bedtimeActive Active Problems ProblemNoted DateDiagnosed DateThrombosed external sqxipntyid63/30/2025 Family History Medical HistoryRelationNameCommentsCancerMotherCOPDSister 1Lung cancerSister 1 Breast cancerNeg HxColon cancerNeg HxOvarian cancerNeg HxPancreatic cancerNeg Hx RelationNameStatusCommentsBrotherAlive3 brothersFatherDeceasedMotherDeceased Sister 4Irpnetsq2- sistersSister 2Alive Social History Tobacco UseTypesPacks/DayYears UsedDateSmoking Tobacco: Every DayCigarettes Smokeless Tobacco: Never Tobacco Cessation:Ready to Q uit: No; Counseling Given: Not Answered Alcohol UseStandard Drinks/WeekCommentsNot Currently0 (1 standard drink = 0.6 oz pure alcohol)Sex and Gender InformationValueDate RecordedSex Assigned at Not on fileLegal NdqYexe5511/17/2022 7:11 PM EDTGender IdentityNot on fileSexual OrientationNot on file Last Filed Vital Signs Vital SignReadingTime TakenCommentsBlood Evhtrkvq92/64003/04/2025 3:44 PM EDT Pulse--Temperature--Respiratory Rate--Oxygen Saturation--Inhaled Oxygen Concentration--Xbfhdi47.1 kg (159 lb)03/11/2025 2:26 PM JWFIzwlmb432.3 cm (5' 11 )03/11/2025 2:26 PM EDTBody Mass Index22.18003/11/2025 2:26 PM EDT Plan of Treatment Not on file Insurance Care Teams Team MemberRelationshipSpecialtyStart DateEnd Mel Bansal MD [address] [place] [id number] PCP - GeneralFamily Medicine03/04/25
--- OUTSIDE RECORDS SUMMARY | 2025-08-20 00:18 | XMS_ITS | Clinical Summary ---
Author Organization [facility] Address [address] [place] [address] Care Team Providers Care Inorganic Chemical Technician Name Role Phone Unavailable Primary Care Provider Unavailabl e Social History Tobacco UseTypesPacks/DayYears UsedDateSmoking Tobacco: Never AssessedSex and Gender InformationValueDate RecordedSex Assigned at BirthNot on fileLegal Sex Male08/06/2012 9:51 AM ESTGender IdentityNot on fileSexual OrientationNot on file Plan of Treatment Health MaintenanceDue DateLast DoneCommentsAnxiety Pbhplrknh39/05/1979Depression Jgewydfex12/05/1979HIV Clhodbpii50/05/1979Hepatitis C Fqdeaozgl14/05/1979 DTaP,Tdap,Td Vaccine (1 - Tdap)11/08/1979Lipid Qdyadoskh33/05/1996CT Kpuczsfivman32/05/2006Cologuard (FIT-DNA)11/07/20050019Pvsxstryaem73/05/2006 Colorectal Cancer Gdfdfffjr19/05/2006Diabetes Fakzyzoqx59/05/2006Fecal Occult Blood2005Prostate Cancer Screening Doqxxpibpu35/05/2006Sigmoidoscopy 2005Pneumococcal Vaccine: 50+ (1 of 1 - PCV)2010Shingrix Vaccine (1 of 2)2010Covid-19 Vaccine (1 - 2024- season)2025Influenza Vaccine (#1)2025RSV Vaccine (1 - 1-dose 75+ series)11/08/2035 Insurance
[2025-08-20] MEDS: 0.9 % SODIUM CHLORIDE 1,000 ML 999 ML IV (00:24)
[2025-08-20] MEDS: FENTANYL CITRATE/PF 100 MCG/2 ML VIAL IV (00:26)
[2025-08-20 00:43] LABS: Hematocrit 42.9 % (42.0-54.0); Hemoglobin 15.0 g/dL (14.0-18.0); Immature Granulocytes Abs Auto 0.04 10^3/uL (0.00-0.03); Immature Granulocytes Pct Auto 0.3 % (0.0-0.5); Lymphocytes Absolute Auto 1.3 10^3/uL (1.2-3.8); Mean Corpuscular HGB Conc 35.0 g/dL (29.9-35.2); Mean Corpuscular Hemoglobin 32.3 pg (25.9-34.0); Mean Corpuscular Volume 92.3 fL (80.0-94.0); Platelet Count 202 10^3/uL (150-450); Red Blood Count 4.65 10^6/uL (4.70-6.10); White Blood Count 13.0 10^3/uL (4.0-11.0)
[2025-08-20 00:59] LABS: Alanine Aminotransferase 28 U/L (16-63); Albumin Globulin Ratio 1.4; Albumin Level 4.0 g/dL (3.4-5.0); Alkaline Phosphatase 97 U/L (46-116); Anion Gap 13.1; Aspartate Amino Transferase 17 U/L (15-37); Blood Urea Nitrogen 12.0 mg/dL (7.0-18.0); Calcium 8.8 mg/dL (8.5-10.1); Carbon Dioxide 30.8 mmol/L (21.0-32.0); Chloride 100 mmol/L (98-107); Estimated GFR (African America >60 (>=60 mL/min/1.73m^2); Estimated GFR (Non-African Ame >60 (>=60 mL/min/1.73m^2); Globulin 2.8 g/dL; Glucose 128 mg/dL (74-106); Potassium 3.9 mmol/L (3.5-5.1); Sodium 140 mmol/L (136-145); Total Protein 6.8 g/dL (6.4-8.2)
[2025-08-20 01:02] LABS: Lactate/Lactic Acid 1.2 mmol/L (0.4-2.0)
[2025-08-20 02:58] VITALS: BP 112/66; PULSE 81; O2SAT 96
[2025-08-20 03:21] LABS: Glucose Urine UA NEGATIVE (NEGATIVE)
[2025-08-20 03:26] LABS: Cast Seen? NONE SEEN #/LPF (NONE SEEN); Crystals Seen? None Seen #/HPF (None Seen); Urine Culture Indicated NO
[2025-08-20] MEDS: HYDROCODONE/ACET 5-325 MG TABLET 2 TAB PO (04:09)
== END 2025-08-20 04:19 | disposition home or self-care (01) ==
PROVIDERS: Emergency Provider Internal Medicine; PCP Nurse Practitioner
DX: S32.029A Unspecified fracture of second lumbar vertebra, initial encounter for closed fracture (principal); S20.212A Contusion of left front wall of thorax, initial encounter; J44.9 Chronic obstructive pulmonary disease, unspecified; Z99.81 Dependence on supplemental oxygen; Z79.82 Long term (current) use of aspirin; W01.0XXA Fall on same level from slipping, tripping and stumbling without subsequent striking against object, initial encounter
CPT/HCPCS: 36415; 70450; 71260; 72125; 74177; 76376; 80053; 81001; 83605; 85025; 96374; 99284; J3010; Q9967

== ENCOUNTER 2025-08-23 10:24 | Outpatient (OUT) | payer OTHER, SELFPAY ==
--- OUTSIDE RECORDS SUMMARY | 2024-08-22 09:00 | XMS_ITS ---
Author Organization [facility] in [place] Address [address] [place] [address] Care Team Providers Care Special Education Paraprofessional Name Role Phone Luiz Seu MD Primary Care Provider Cheri Nuñez Shade Unavailable [phone] REASON FOR VISIT 6m COPD Encounters Encounter Location Date Provider Diagnosis Pulmonary Medicine [place] [address] [place] [address] 08/22/2024 Shade Nuñez Plan Of Treatment No Information Progress Notes * Mike METZGER HDOB:1960 (64 yo M)Acc No.[id number]:08/22/2024 UNLOCKED PROGRESS NOTE Follow Up Patient: Mike HIDALGO :?Shade Nuñez DODOB:1960???Age:63 Y ???Sex:MaleDate:4Phone:[phone]:[address] [place], [place] [id number]:Luiz Sue MD Subjective: * Chief Complaints: * 1 . 6m COPD. * Medical History: Objective: * Vitals: Assessment: Plan: * Treatment: * * Electronic signature of Shade Nuñez DO on 08/23/2025 at 10:28 AM ESTSign off status: PendingVisit Status:?R/S (Rescheduled) * Provider: Antonio Nuñez DO Date: 10/23/2023 Generated for Printing/Faxing/eTransmitting on:?08/23/2025 10:28 AM EST
--- OUTSIDE RECORDS SUMMARY | 2024-10-10 05:30 | XMS_ITS ---
Author Organization The [facility] in [place] Address [address] [place] [address] Care Team Providers Care Director Peoplesoft Name Role Phone Luiz Sue MD Primary Care Provider Shade De Anda Unavailable [phone] REASON FOR VISIT 6m COPD Encounters Encounter Location Date Provider Diagnosis Pulmonary Medicine [place] [address] [place] [address] 10/10/2024 Shade Nuñez Plan Of Treatment No Information Progress Notes * Mike METZGER HDOB:1960 (64 yo M)Acc No.[id number]:10/10/2024 UNLOCKED PROGRESS NOTE Follow Up Patient: Mike HIDALGO :?Shade Nuñez DODOB:1960???Age:63 Y ???Sex:MaleDate:10/10/2024Phone:[phone]:[address] [place], [place] [id number]:Luiz Sue MD Subjective: * Chief Complaints: * 1 . 6m COPD. * Medical History: Objective: * Vitals: Assessment: Plan: * Treatment: * * Electronic signature of Shade Nuñez DO on 08/23/2025 at 10:29 AM ESTSign off status: PendingVisit Status:?R/S By O/P (Rescheduled by Office/Provider) * Provider: Antonio Nuñez DO Date: 0 10/10/2024 Generated for Printing/Faxing/eTransmitting on:?08/23/2025 10:29 AM EST
--- OUTSIDE RECORDS SUMMARY | 2025-06-04 19:00 | XMS_ITS ---
Author Organization The [facility] in [place] Address [address] [place] [address] Care Team Providers Care Lab Associate Name Role Phone Luiz Sue MD Primary Care Provider Unavailabl e Provider, Radiology Unavailable [phone] Encounters Encounter Location Date Provider Diagnosis Radiology Main [place] [address] [facility] 1 [place] [address] 06/05/2025 Radiology Provider Plan Of Treatment No Information Progress Notes * Mike METZGER HDOB:1960 (64 yo M)Acc No.[id number]:06/05/2025 UNLOCKED PROGRESS NOTE Progress Note Patient: Mike HIDALGO :?Radiology ProviderDOB:1960???Age:64 Y ???Sex:MaleDate:06/05/2025External Visit ID:[id number]:[phone]: [address] [place] [address]Pcp:Luiz Sue MD Subjective: * Chief Complaints: * * Active Problem List J43.2 Centrilobular emphys veronica Modified On:08/22/2023/U Status:pbwioerwbD95.11Chronic respiratory failure with hypoxia Modified On:08/22/2023/U Status:oaahjohjuV27.51Long term (current) use of inhaled steroids Modified On:02/21/2023/U Status:xzovapuadR02.10Coronary artery disease Modified On:08/22/2023/U Status:pypgtnclhA35.9Allergic rhinitis Modified On:08/22/2023/U Status:lnvrwpqjiR41.22Chronic systolic congestive heart failure Modified On:08/22/2023/U Status:xbtcalpfiD64.219Cigarette nicotine dependence with nicotine-induced disorder Modified On:08/22/2023/U Status:sjxwharybU32.8Multiple pulmonary nodules Modified On:08/22/2023/U Status:confirmed * Medical History: Objective: * Vitals: Assessment: Plan: * Treatment: * * Electronic signature of Radiology Provider on 08/23/2025 at 10:29 AM ESTSign off status: PendingVisit Status:?CANC (Cancelled) * Provider: Efrain guzman Provider Date: Generated for Printing/Faxing/eTransmitting on:?08/23/2025 10:29 AM EST
--- OUTSIDE RECORDS SUMMARY | 2025-06-25 08:00 | XMS_ITS ---
Author Organization The [facility] in [place] Address [address] [place] [address] Care Team Providers Care Conference Director Name Role Phone Luiz Sue MD Primary Care Provider Shade De Anda Unavailable [phone] REASON FOR VISIT 8m F/U - COPD, LDCT Encounters Encounter Location Date Provider Diagnosis Pulmonary Medicine [place] [address] [place] [address] 06/25/2025 Shade Nuñez Plan Of Treatment No Information Progress Notes * Mike METZGER HDOB:1960 (64 yo M)Acc No.[id number]:06/25/2025 UNLOCKED PROGRESS NOTE Follow Up Patient: Mike HIDALGO :?Shadestacie Nuñez DODOB:1960???Age:64 Y ???Sex:MaleDate:06/25/2025Phone:[phone]:[address] [place], [place] [address]Pcp:Luiz Sue MD Subjective: * Chief Complaints: * 1 . 8m F/U - COPD, LDCT. * Medical History: Objective: * Vitals: Assessment: Plan: * Treatment: * * Electronic signature of Shade Nuñez DO on 08/23/2025 at 10:29 AM ESTSign off status: PendingVisit Status:?CANC (Cancelled) * Provider: Antonio Nuñez DO Date: Generated for Printing/Faxing/eTransmitting on:?08/23/2025 10:29 AM EST
--- OUTSIDE RECORDS SUMMARY | 2025-08-23 10:28 | XMS_ITS | Clinical Summary ---
Author Organization [facility] Address [address] [place] [address] Phone Care Team Providers Care Can Capper Name Role Phone Mel Bansal MD Primary Care Provider [phone] Allergies No known active allergies Medications MedicationSigDispense [...] ProblemNoted DateDiagnosed DateCAD (coronary artery disease)07/10/2023 Centrilobular uxvezbbua21/05/2023holelithiasis without ctpqpywjnqxgy71/05/2023 Chronic respiratory failure with hypoxia, on home O2 oywabvj7207/10/2023igarette nicotine dependence with nicotine-induced uvqhzcvg23/05/2023Hypothyroid 07/10/2023Lung upjoun0707/10/2023Overt chronic systolic congestive heart failure 07/10/2023Rhinitis, xpecpsbm25/05/2023 Encounters DateTypeDepartmentCare FmvuFqgwrmluhiz37/18/2025 4:01 PM EST - 07/23/2025 11:59 PM ESTHospital Encounter [facility] [address] [place] [address] Discharge Disposition: Home07/22/2025bstract [facility] [address] [place] [address] Shahla Galo DO from Last 3 Months Family History Medical HistoryRelationNameCommentscardiac disorderFathermalignant neoplasm MotherRelationNameStatusCommentsFatherAliveMother Social History Tobacco UseTypesPacks/DayYears UsedDateSmoking Tobacco: Every DayCigarettes Tobacco Cessation:Ready to Q uit: Not Asked; Counseling Given: Not Answered Sex and Gender InformationValueDate RecordedSex Assigned at BirthNot on file Legal EbyIjgb27/26/2022 2:48 PM ESTGender IdentityNot on fileSexual Orientation Not on file Last Filed Vital Signs Vital SignReadingTime TakenCommentsBlood Aolzgwki254/6909 10:53 AM EDT Bbdds63403/08/2022 10:53 AM YBVZgfpsarprft27.2 ??C (97.1 ??F)05/13/2022 10:53 AM EDTRespiratory Sytm535805/13/2022 10:53 AM EDTOxygen Eodolzlvmw61%05/13/2022 10:53 AM EDTInhaled Oxygen Concentration--Pczuei12 kg (169 lb 12.1 oz)06/28/2022 9:45 AM GGNMoplwk334.8 cm (5' 11.97 )06/28/2022 9:45 AM EDTBody Mass Index23.04 06/28/2022 9:45 AM EDT Plan of Treatment Health MaintenanceDue DateLast DoneCommentsCT Zpypzjemjhcb74/05/1961Colonoscopy 1960olorectal Cancer Xnunwksms26/05/1961reatinine Level1960 Oxzdsgtemblpjq98/05/1961FIT-DNA (Cologuard)1960FIT1960HIV Screening 1960ipid Panel1960otassium Level1960 7295Ioqxzskdjvfvo66/05/1961 TSH Level1960Yearly Adult Icraqgjn39/05/1961MMR Vaccines (1 of 1 - Standard series)1961Hepatitis C Xwfidvkuv68/05/1979Pneumococcal Vaccine (1 of 2 - PCV)11/08/1979DTaP/Tdap/Td Vaccines (1 - Tdap)1982PSA Prostate Cancer Ppjybgedd33/05/2011RSV High Risk: (Elderly (60+) or Population) (1 - Risk 50-74 years 1-dose series)2010Zoster Vaccines (1 of 2)2010 COVID-19 Vaccine (1 - season)2025Influenza Vaccine (#1)2025 Diabetes Mvffolfzu81HIB VaccinesAged OutNo longer eligible based on patient's [...] Procedures Procedure NamePriorityDate/TimeAssociated DiagnosisCommentsCT TRANSFER OF OUTSIDE NCIWVRavxxoi09/18/2025 4:02 PM EST from Last 3 Months Results * CT transfer of outside films (07/23/2025 4:02 PM EST)Specimen (Source) Anatomical Location / LateralityCollection Method / VolumeCollection Time Received Time Narrative IMAGING - 07/23/2025 4:05 PM EST Outside images for comparison or treatment purposes, not interpreted by Radiologists. Authorizing ProviderResult TypeResult StatusJillian N Clover DOIMG CT PROCEDURESFinal ResultPerforming OrganizationAddressCity/State/ZIP CodePhone Number IMAGING from Last 3 Months Insurance Care Teams Team MemberRelationshipSpecialtyStart DateEnd Mel Bansal MD [address] [place] [address] [facility] - [facility]05/13/22
--- OUTSIDE RECORDS SUMMARY | 2025-08-23 10:28 | XMS_ITS | Clinical Summary ---
Author Organization [facility] tem Address [facility] [address] [place] [address] Care Team Providers Care Tax Clerk Name Role Phone Mel Bansal MD Primary Care Provider [phone] Allergies No known active allergies Medications MedicationSigDispense [...] standard drink = 0.6 oz pure alcohol)ChildcareAnswerDate MwedqyasWvuuwrrtjMortxyq76/12/2019Employment AnswerDate DowyknfgJrypnpzplpAtwdhzy71/12/2019Sex and Gender InformationValue Date RecordedSex Assigned at BirthNot on fileLegal KzfKrof7404/10/2015 12:06 PM EDTGender IdentityNot on fileSexual OrientationNot on file Last Filed Vital Signs Vital SignReadingTime TakenCommentsBlood Ewvzjdrz041/6007/20/2021 3:08 PM EST Pulse--Umrxdtdvdtf49.3 ??C (97.3 ??F)07/20/2021 3:08 PM ESTRespiratory Rate-- Oxygen Saturation--Inhaled Oxygen Concentration--Ymmckn26.9 kg (169 lb 9.6 oz) 07/20/2021 3:08 PM GRDEyixxh627.9 cm (6')07/20/2021 3:08 PM ESTBody Mass Index23 07/20/2021 3:08 PM EST Plan of Treatment Health MaintenanceDue DateLast DoneCommentsDepression Oehoggtdy82/05/1973Tobacco Vdaicnaur41/05/1973Adult BMI Ohkrospsj29/05/1979DTaP,Tdap and Td Vaccines (1 - Tdap)11/08/1979Zoster (Shingles) Vaccine (1 of 2)2010Influenza Vaccine 05/06/2025RSV ( or age 60+ yrs) (1 - 1-dose 75+ series)11/08/2035 [employer] Not on file Insurance Care Teams Team MemberRelationshipSpecialtyStart DateEnd eMl Bansal MD PCP - GeneralFamily Medicine05/08/21
--- OUTSIDE RECORDS SUMMARY | 2025-08-23 10:29 | XMS_ITS | Clinical Summary ---
Author Organization [facility] Address [address] [place] [address] Care Team Providers Care Pullman Car Clerk Name Role Phone Unavailable Primary Care Provider Unavailabl e Social History Tobacco UseTypesPacks/DayYears UsedDateSmoking Tobacco: Never AssessedSex and Gender InformationValueDate RecordedSex Assigned at BirthNot on fileLegal Sex Male08/06/2012 9:51 AM ESTGender IdentityNot on fileSexual OrientationNot on file Plan of Treatment Health MaintenanceDue DateLast DoneCommentsAnxiety Hcrtqxfwk56/05/1979Depression Smvtclhcu78/05/1979HIV Pskpgrvsi77/05/1979Hepatitis C Ghjtblyqq75/05/1979 DTaP,Tdap,Td Vaccine (1 - Tdap)11/08/1979Lipid Hctbjvikl32/05/1996CT Ywiqxlpdioyj66/05/2006Cologuard (FIT-DNA)11/07/20055537Ugkipozolsm23/05/2006 Colorectal Cancer Vcqwpxtab86/05/2006Diabetes Xzvthdfin39/05/2006Fecal Occult Blood2005Prostate Cancer Screening Cgdouitcff20/05/2006Sigmoidoscopy 2005Pneumococcal Vaccine: 50+ (1 of 1 - PCV)2010Shingrix Vaccine (1 of 2)2010Covid-19 Vaccine (1 - 2024- season)2025Influenza Vaccine (#1)2025RSV Vaccine (1 - 1-dose 75+ series)11/08/2035 Insurance
--- OUTSIDE RECORDS SUMMARY | 2025-08-23 10:29 | XMS_ITS | Clinical Summary ---
Author Organization [facility] Address [address], [address] [place] [address] Care Team Providers Care Brand Manager Name Role Phone Lexie Douglas APRN - MARYANNE Primary Care Provider [phone] Allergies No known active allergies Medications MedicationSigDispense [...] & Plan (07/16/2025 4:28 PM EST): A cipq-gu-oiby encounter was performed with the patient today [...] LUNG CANCER SCREENING (INITIAL/ANNUAL); Future Encounters DateTypeDepartmentCare RijeNvddsoftztg59/14/2025Orders Only [facility] [address], [address] [place] [address] Harris Haskins MA Centrilobular emphysema (HCC)07/16/2025 3:00 PM ESTOffice Visit [facility] [address], [address] [place] [address] Shade Nuñez DO Centrilobular emphysema (Primary Dx); Chronic respiratory failure with hypoxia; Cigarette nicotine dependence with nicotine-induced disorder; Multiple pulmonary nodules; skilled nursing (current) use of inhaled steroids; Encounter for screening for lung qqlqry3007/16/2025bstract [facility] [address], [address] [place] [address] Shade Nuñez DO 06/14/2025bstract [facility] [address] [place] [address] Shade Nuñez DO from Last 3 Months Family History Medical HistoryRelationNameCommentsHeart DiseaseFatherCancerMotherRelationName StatusCommentsFatherMother Social History Tobacco UseTypesPacks/DayYears UsedDateSmoking Tobacco: Every IakIqurxcldyq381.1 Started: 07/15/1981Smokeless Tobacco: Never Tobacco Cessation:Ready to Q uit: No; Counseling Given: Yes Alcohol UseStandard Drinks/WeekCommentsNot Currently0 (1 standard drink = 0.6 oz pure alcohol)Sex and Gender InformationValueDate RecordedSex Assigned at Male06/13/2025 4:17 PM EDTLegal RywAjkc8010/15/2012 2:57 PM ESTGender IdentityMale 06/13/2025 4:17 PM EDTSexual GyddinjlcuzCihyryul31/09/2025 4:17 PM EDT Last Filed Vital Signs Vital SignReadingTime TakenCommentsBlood Bplqhpol961/7007/16/2025 3:02 PM EST Azsnz684807/16/2025 3:02 PM JGVUcspxexmyxf58.2 ??C (97.1 ??F)07/16/2025 3:02 PM ESTRespiratory Jcsc066309/15/2024 3:02 PM ESTOxygen Izeeawwpaq69%07/16/2025 3:02 PM ESTon room airInhaled Oxygen Concentration--Imicko09.9 kg (156 lb 6.4 oz) 07/16/2025 3:02 PM HGITcntrm898.3 cm (5' 11 )07/16/2025 3:02 PM ESTBody Mass Index21.8107/16/2025 3:02 PM EST Plan of Treatment DateTypeDepartmentCare Team (Latest Contact Info)Kpcwdgkrxtn39/17/2026 2:00 PM ESTOffice Visit [facility] [address], [address] [place], [place] [id number] Shade Nuñez DO [address] [place] [address] 3 MO. F/U COPDHealth MaintenanceDue DateLast RpteBhpuezqgIzbkfu36/05/1971 Depression Yhvxji2711/07/1972HIV vyiect1611/08/1975Hepatitis C lhaszf3711/07/1978 DTaP/Tdap/Td vaccine (1 - Tdap)11/08/1979Pneumococcal 50+ years Vaccine (1 of 2 - PCV)11/08/19795895Qcykfqmgbms27/05/2006Colorectal Cancer Ulntic6511/07/2005FIT/FOBT: Average risk2005Fecal-DNA (Cologuard): Average risk2005 Sigmoidoscopy/CT rkuqainpdtns36/05/2006Shingles vaccine (1 of 2)2010 Respiratory Syncytial Virus (RSV) or age 60 yrs+ (1 - Risk 60-74 years 1-dose series)2020ung Cancer Screening &/or Nyzjxxwove10/24/2023 06/28/2022Flu vaccine (#1)04/05/2025OVID-19 Vaccine ( season) 2025Hepatitis [...] topic Procedures Procedure NamePriorityDate/TimeAssociated DiagnosisCommentsCBC WITH AUTO LXRSTEDNUVJSJogsmly45/13/2025 2:53 PM EST Centrilobular emphysema (HCC) from [...] / VolumeCollection TimeReceived Time BloodBLOOD SPECIMEN / Tnzcmlr9607/18/2025 2:53 PM EST Narrative Authorizing ProviderResult TypeResult StatusNathan Samsa DOHEMATOLOGY ORDERABLES Final ResultPerforming OrganizationAddressCity/State/ZIP CodePhone Number OUTSIDE LAB, SEE SCANNED ORDERS from Last 3 Months Insurance Care Teams Team MemberRelationshipSpecialtyStart DateEnd Date Lexie Douglas APRN - MARYANNE [address] [place] [address] PCP - Qgafbbl38/9/25
--- OUTSIDE RECORDS SUMMARY | 2025-08-23 10:29 | XMS_ITS | Patient Health Record ---
Author Organization [facility] [place] Address [address] [place] [address] Care Team Providers Care Foundry Finisher Name Role Phone Luiz Sue MD Primary Care Provider Unavailabl e Provider, Radiology Unavailable [phone] Shade Nuñez Unavailable [phone] Allergies No Known Allergies Results Component Value Reference Range Notes CBC AUTO DIFF (Not yet revie wed by provider) Interpretation: Performing Lab: Notes/Report: [facility] , White Blood Count 5.8 4.0-11.0 10 3/uL Red Blood Count4.554.70-6.10 10 6/iAXotzgnwlki93.314.0-18.0 g/hDPtxsjcngeq24.4 42.0-54.0 %Mean Corpuscular Luhznm30.280.0-94.0 fLMean Corpuscular Hemoglobin 31.425.9-34.0 pgMean Corpuscular HGB Conc33.729.9-35.2 g/dLRed Cell Distribution Width13.211.0-15.0 %Platelet Tkiwd960816-035 10 3/uLMean Platelet Aboeqd80.89.5- 13.5 fLNeutrophils Percent Auto73.743.0-75.0 %Lymphocytes Percent Auto16.220.5- 60.0 %Monocytes Percent Auto9.21.7-12.0 %Eosinophils Percent Auto0.00.9-7.0 % Basophils Percent Auto0.70.2-2.0 %Immature Granulocytes Pct Auto0.20.0-0.5 % Neutrophils Absolute Auto4.21.4-6.5 10 3/uLLymphocytes Absolute Auto0.91.2-3.8 10 3/uLMonocytes Absolute Auto0.50.3-0.8 10 3/uLEosinophils Absolute Auto0.00.0- 0.7 10 3/uLBasophils Absolute Auto0.00.0-0.1 10 3/uLImmature Granulocytes Abs Auto0.010.00-0.03 10 3/uLPerforming Lab:see noteML - [facility] Reason For Referral No Information Medications Medication [...] W/U Status Risk Notes Problem Centrilobular emphysema (41815434) Centri lobular emphysema (J43.2) ActiveconfirmedDulera + Spiriva > Symbicort + Spiriva > TrelegyProblemChronic respiratory failure (00054758)Chronic respiratory failure with hypoxia (J96.11) ActiveconfirmedProblemLong-term current use of inhaled steroid (133142532)roasterman (current) use of inhaled steroids (Z79.51)ActiveconfirmedProblemCoronary artery disease (20748280)Coronary artery disease (I25.10)ActiveconfirmedProblem Allergic rhinitis (08410210)Allergic rhinitis (J30.9)ActiveconfirmedProblem Chronic systolic heart failure (287393179)Chronic systolic congestive heart failure (I50.22)ActiveconfirmedProblemMental disorder caused by drug (048939488) Cigarette nicotine dependence with nicotine-induced disorder (F17.219)Active cthixtqus6yjl x 44 years minimumProblemMultiple pulmonary nodules (211333717) Multiple pulmonary nodules (R91.8)Activeconfirmed Vital Signs Heart Rate 101 /min 10/17/2024 Aalsizwkrjv25.9 degrees Ocmmxwmyxg82/12/2025Respiratory Rate18 /min10/17/2024 Cjklkyll44 %10/17/2024lood pressure rtpyeyqsa77 mm Hg10/17/20245406Bdukmp11 in 10/17/2024lood pressure nzczhcuj810 mm Hg10/17/20242745Cdcoso250.0 lbs10/17/2024MI 23.96 kg/m210/17/2024 Encounters Encounter Location Date Provider Diagnosis Pulmonary Medicine [facility] [address] [place] [address] 09/24/2024 [facility] [address] [place] [address]/09/2025 [facility] [address] [place] [address] [facility] R91.8 ; Centrilobular emphysema J43.2 ; Chronic respiratory failure withhypoxia J96.11 ; Cigarette nicotine dependence with nicotine-induced disorder F17.219 ; Encounter for screening for malignant neoplasm of respiratory organs Z12.2 and jail (current) use of inhaled steroids Z79.51 Assessments [...] respiratory failure with hypoxia (ICD-10 - J96.11) Hrax-za-ldaj encounter performed with the patient to document [...] on it. LDCT will be due 06/2025. 10/17/2024[facility] for screening for malignant neoplasm of [...] Date [employer] [place] [employer] [address] [place] [address] [id number] Javad Lopezelf - patient is the xwbyaqd02 2022 Medical (General) History Medical History History ICD Code Centrilobular emphysema J43.2 Multiple pulmonary nodules R91.8 Chronic respiratory failure with hypoxia J96.11 Allergic rhinitis J30.9 Coronary artery disease I25.10 Chronic systolic congestive heart failur e I50.22 Hypothyroidism E03.9 Cigarette nicotine dependence with nicot ine-induced disorder F17.219 jail (current) use of inhaled stero ids Z79.51 Surgical History Surgery Date(Month/Year) Lung Biopsy 06/29/2022 Cardiac Catheterization 12/21/2021 cholecystectomy 08/10/2024 right knee arthroscopy cyst removal
--- OUTSIDE RECORDS SUMMARY | 2025-08-23 10:29 | XMS_ITS | Clinical Summary ---
Author Organization [facility] Address [address] [place] [address] Care Team Providers Care Implementation Technician Name Role Phone Lexie Douglas DEMENTIA PROGRAM DIRECTOR-C Primary Care Provider [phone] Allergies No known active allergies Medications MedicationSigDispense QuantityRefillsLast FilledStart DateEnd DateStatus albuterol 90 mcg/actuation inhaler INHALE 2 PUFFS BY MOUTH EVERY 4 HOURS NEEDED FOR SHORTNESS OF BREATH 05/14/2021ctive aspirin 81 mg EC tablet Take 1 tablet every day by oral route.Active meclizine (Antivert) 25 mg tablet TAKE 1 TABLET BY MOUTH EVERY 6 HOURS NEEDED FOR CJTRQXRDJ36/09/2022ctive mometasone-formoterol (Dulera 200) 200-5 mcg/actuation inhaler INHALE [...] by mouth two times daily. 90 tablet 303//226258/ctive metoprolol succinate XL (Toprol-XL) 25 mg 24 hr tablet Indications:Heart failure with improved ejection fraction (HFimpEF) (CMS/HCC) Take 0.5 tablets (12.5 mg) by mouth in the morning. Do not crush or chew. 45 tablet ctive atorvastatin (Lipitor) 40 mg tablet Indications:Coronary artery disease involving [place] coronary artery of [place] heart without angina pectorisTake 1 tablet (40 mg) by mouth in the morning. 90 tablet ctive Active Problems ProblemNoted DateDiagnosed DateAbdominal pain, right upper jphwoamz25/28/2025 Acid wibooj7611/30/2024MI 25.0-25.9,adult11/30/20244135Bberaibwzddubp08/28/2025 Iqloavkomyxf11/28/8401Vnqztlssxc39/28/2984Xqkoku27/28/2025alculus of gallbladder without cholecystitis without omlkyiznoxi76/03/2024 Assessment & Plan (08/10/2024 1:19 PM EST): Relevant Hx: CAD, CHF Course: stable, controlled Daily Update: none Today's Plan: Laparoscopic cholecystectomy, possible cholangiogram Orders from past 72 hours: Full Code; Standing ceFAZolin in dextrose (iso-os) (Ancef) IVPB 2 g Full Code Rhinitis, xwxenxhv47Lung wdever86igarette nicotine dependence with nicotine-induced bdsdsljp39hronic respiratory failure with hypoxia, on home O2 bjfmdio12 Cholelithiasis without vkjmqpzqgtmqx15entrilobular emphysema Impotencehronic obstructive lung qwswpql24HypothyroidismInduration penis erhvfstd43Right inguinal ynkezx46hronic systolic congestive heart hkrkfav0610/25/2022 Overview (10/25/2022): recovered EF Coronary artery disease involving [place] coronary artery of [place] heart without angina xcfacwmj00/ Family History Medical HistoryRelationNameCommentsCancerMotherRelationNameStatusCommentsMother Social History Tobacco [...] 06/26/2024Sexually AbusedNot on file06/26/2024HQ-2AnswerDate RecordedPatient Health Questionnaire-2 Ofhca452UT Safety & Environment AnswerDate RecordedFear of Current or Ex-PartnerNot on file10/27/2023Emotionally AbusedNot on file10/27/2023hysically AbusedNot on file10/27/2023Sexually Abused Not on file10/27/2023hysically or Sexually AbusedNot on file10/27/2023Sex and Gender InformationValueDate RecordedSex Assigned at BirthNot on fileLegal Sex Male03/03/2022 10:28 PM EDTGender IdentityNot on fileSexual OrientationNot on file Last Filed Vital Signs Vital SignReadingTime TakenCommentsBlood Qfvxjpnj744/6603 2:22 PM EDT Kwyla553911/30/2024 2:22 PM NDTLorjmbvvvyr01.6 ??C (97.8 ??F)08/22/2024 2:09 PM ESTRespiratory Tect218010/11/2023 5:30 PM ESTOxygen Xngrmmubza26%11/30/2024 2:22 PM EDTInhaled Oxygen Concentration--Kwzisc33.8 kg (165 lb)11/30/2024 2:22 PM EDT Waqopd509.9 cm (6')11/30/2024 2:22 PM EDTBody Mass Index22.38011/30/2024 2:22 PM EDT Plan of Treatment Health MaintenanceDue DateLast DoneCommentsCT Boljangumlav18/05/1961Colonoscopy 1960olorectal Cancer Uqtfhmkge92/05/1961FIT-DNA1960FIT1960 FOBT1960Medicare Initial Physical (IPPE)1960 0948Gmcwypnrqqgxb00/05/1961 Depression Goujhymvx88/05/1973Pneumococcal Vaccine: Pediatrics (0 to 5 Years) and [...] (Latest Code Status on File) Date ActivatedDate EwriivjzjxzNdtimhjf08/6/2024 1:09 PM08/10/2024 8:08 PM Care Teams Team MemberRelationshipSpecialtyStart DateEnd Date Lexie Douglas FNP-C [address] [place] [address] PCP - GeneralNurse Nenjrpyaxidi82/22/24
--- OUTSIDE RECORDS SUMMARY | 2025-08-23 10:29 | XMS_ITS | Clinical Summary ---
Author Organization [facility] Address [address] [place] [address] Care Team Providers Care Card Hanger Name Role Phone Mel Bansal MD Primary Care Provider [phone] Allergies No known active allergies Medications MedicationSigDispense [...] bedtimeActive Active Problems ProblemNoted DateDiagnosed DateThrombosed external verqvzaxpu77/30/2025 Family History Medical HistoryRelationNameCommentsCancerMotherCOPDSister 1Lung cancerSister 1 Breast cancerNeg HxColon cancerNeg HxOvarian cancerNeg HxPancreatic cancerNeg Hx RelationNameStatusCommentsBrotherAlive3 brothersFatherDeceasedMotherDeceased Sister 5Idbmzwmc1- sistersSister 2Alive Social History Tobacco UseTypesPacks/DayYears UsedDateSmoking Tobacco: Every DayCigarettes Smokeless Tobacco: Never Tobacco Cessation:Ready to Q uit: No; Counseling Given: Not Answered Alcohol UseStandard Drinks/WeekCommentsNot Currently0 (1 standard drink = 0.6 oz pure alcohol)Sex and Gender InformationValueDate RecordedSex Assigned at Not on fileLegal ZxeAoro6411/17/2022 7:11 PM EDTGender IdentityNot on fileSexual OrientationNot on file Last Filed Vital Signs Vital SignReadingTime TakenCommentsBlood Cqwvkufi23/64003/04/2025 3:44 PM EDT Pulse--Temperature--Respiratory Rate--Oxygen Saturation--Inhaled Oxygen Concentration--Xdsgsx26.1 kg (159 lb)03/11/2025 2:26 PM GHZPlrnfb647.3 cm (5' 11 )03/11/2025 2:26 PM EDTBody Mass Index22.18003/11/2025 2:26 PM EDT Plan of Treatment Not on file Insurance Care Teams Team MemberRelationshipSpecialtyStart DateEnd Mel Bansal MD [address] [place] [id number] PCP - GeneralFamily Medicine03/04/25
--- NOTE | 2025-08-23 10:33 | XR_ITS ---
The [address] [address] Patient Name: ZENA METZGER MRN: [id number] date: 1960 Sex: M Assigned Patient Location: [facility] Current Patient Location: [facility] Accession/Order Number: [id number] Exam Date: 08/23/2025 10:40 Report Date: 08/23/2025 11:13 At the request of: JAILYN CARNES Procedure: XR ribs LT 2V LEFT RIBS - 3 views: CLINICAL HISTORY: Left-sided chest pain. History of recent fall. COMPARISON: CT 08/20/2025 AP and both oblique views of the left ribs show no displaced fractures or bony destruction. Patient has a right-sided aortic arch. The heart is normal size. Lungs are clear. No effusion or pneumothorax is seen. XR/XR ribs LT 2V IMPRESSION: NO ACUTE FINDINGS. Impression dictated by: Khushboo Cahves M.D. 08/23/2025 11:13 AM Dictation Location: [place] [address] Electronically authenticated by: [id number] Y Date: 08/23/2025 11:13
== END 2025-08-23 10:25 | disposition home or self-care (01) ==
LOC: RAD 10:25
PROVIDERS: PCP Nurse Practitioner; Visit Provider Nurse Practitioner
DX: R07.89 Other chest pain (principal); Z91.81 History of falling
CPT/HCPCS: 71100

== ENCOUNTER 2025-09-01 16:26 | Emergency (ER) | payer OTHER, SELFPAY ==
--- OUTSIDE RECORDS SUMMARY | 2024-08-22 09:00 | XMS_ITS ---
Author Organization [facility] in [place] Address [address] [place] [address] Care Team Providers Care Lumber Press Operator Name Role Phone Luiz Sue MD Primary Care Provider Cheri Nuñez Shade Unavailable [phone] REASON FOR VISIT 6m COPD Encounters Encounter Location Date Provider Diagnosis Pulmonary Medicine [place] [address] [place] [address] 08/22/2024 Shade Nuñez Plan Of Treatment No Information Progress Notes * Mike METZGER HDOB:1960 (64 yo M)Acc No.[id number]:08/22/2024 UNLOCKED PROGRESS NOTE Follow Up Patient: Mike HIDALGO :?Shade Nuñez DODOB:1960???Age:63 Y ???Sex:MaleDate:4Phone:[phone]:[address] [place], [place] [id number]:Luiz Sue MD Subjective: * Chief Complaints: * 1 . 6m COPD. * Medical History: Objective: * Vitals: Assessment: Plan: * Treatment: * * Electronic signature of Shade Nuñez DO on 09/01/2025 at 06:23 PM ESTSign off status: PendingVisit Status:?R/S (Rescheduled) * Provider: Antonio Nuñez DO Date: 10/23/2023 Generated for Printing/Faxing/eTransmitting on:?09/01/2025 06:23 PM EST
--- OUTSIDE RECORDS SUMMARY | 2024-10-10 05:30 | XMS_ITS ---
Author Organization The [facility] in [place] Address [address] [place] [address] Care Team Providers Care Rig Builder Helper Name Role Phone Luiz Sue MD Primary Care Provider Shade De Anda Unavailable [phone] REASON FOR VISIT 6m COPD Encounters Encounter Location Date Provider Diagnosis Pulmonary Medicine [place] [address] [place] [address] 10/10/2024 Shade Nuñez Plan Of Treatment No Information Progress Notes * Robert METZGERh HDOB:1960 (64 yo M)Acc No.[id number]:10/10/2024 UNLOCKED PROGRESS NOTE Follow Up Patient: Mike HIDALGO :?Shade Nuñez DODOB:1960???Age:63 Y ???Sex:MaleDate:10/10/2024Phone:[phone]:[address] [place], [place] [address]Pcp:Luiz Sue MD Subjective: * Chief Complaints: * 1 . 6m COPD. * Medical History: Objective: * Vitals: Assessment: Plan: * Treatment: * * Electronic signature of Shade Nuñez DO on 09/01/2025 at 06:24 PM ESTSign off status: PendingVisit Status:?R/S By O/P (Rescheduled by Office/Provider) * Provider: Antonio Nuñez DO Date: 0 10/10/2024 Generated for Printing/Faxing/eTransmitting on:?09/01/2025 06:24 PM EST
--- OUTSIDE RECORDS SUMMARY | 2025-06-04 19:00 | XMS_ITS ---
Author Organization [facility] in [place] Address [address] [place] [address] Care Team Providers Care Welder Assistant Name Role Phone Luiz Sue MD Primary Care Provider Unavailabl e Provider, Radiology Unavailable [phone] Encounters Encounter Location Date Provider Diagnosis Radiology Main [place] [address] [facility] 1 [place] [address] 06/05/2025 Radiology Provider Plan Of Treatment No Information Progress Notes * Mike METZGER HDOB:1960 (64 yo M)Acc No.[id number]:06/05/2025 UNLOCKED PROGRESS NOTE Progress Note Patient: Mike HIDALGO :?Radiology ProviderDOB:1960???Age:64 Y ???Sex:MaleDate:06/05/2025External Visit ID:[id number]:[phone]: [address] [place] [address]Pcp:Luiz Sue MD Subjective: * Chief Complaints: * * Active Problem List J43.2 Centrilobular emphys veronica Modified On:08/22/2023/U Status:sassfdtfuV54.11Chronic respiratory failure with hypoxia Modified On:08/22/2023/U Status:qgnesssomC04.51Long term (current) use of inhaled steroids Modified On:02/21/2023/U Status:vobchzqgwF31.10Coronary artery disease Modified On:08/22/2023/U Status:jlrdxhtivG32.9Allergic rhinitis Modified On:08/22/2023/U Status:efzyeemzrQ73.22Chronic systolic congestive heart failure Modified On:08/22/2023/U Status:vieamnycrF77.219Cigarette nicotine dependence with nicotine-induced disorder Modified On:08/22/2023/U Status:fgpfwovejQ31.8Multiple pulmonary nodules Modified On:08/22/2023/ Status:confirmed * Medical History: Objective: * Vitals: Assessment: Plan: * Treatment: * * Electronic signature of Radiology Provider on 09/01/2025 at 06:24 PM ESTSign off status: PendingVisit Status:?CANC (Cancelled) * Provider: Efrain guzman Provider Date: Generated for Printing/Faxing/eTransmitting on:?09/01/2025 06:24 PM EST
--- OUTSIDE RECORDS SUMMARY | 2025-06-25 08:00 | XMS_ITS ---
Author Organization The [facility] in [place] Address [address] [place] [address] Care Team Providers Care Tie Inspector Name Role Phone Luiz Sue MD Primary Care Provider Cheri Nuñez Shade Unavailable [phone] REASON FOR VISIT 8m F/U - COPD, LDCT Encounters Encounter Location Date Provider Diagnosis Pulmonary Medicine [place] [address] [place] [address] 06/25/2025 Shade Nuñez Plan Of Treatment No Information Progress Notes * Mike METZGER HDOB:1960 (64 yo M)Acc No.[id number]:06/25/2025 UNLOCKED PROGRESS NOTE Follow Up Patient: Mike HIDALGO :?Shadestacie Nuñez DODOB:1960???Age:64 Y ???Sex:MaleDate:06/25/2025Phone:[phone]:[address] [place], [place] [address]Pcp:Luiz Sue MD Subjective: * Chief Complaints: * 1 . 8m F/U - COPD, LDCT. * Medical History: Objective: * Vitals: Assessment: Plan: * Treatment: * * Electronic signature of Shade Nuñez DO on 09/01/2025 at 06:23 PM ESTSign off status: PendingVisit Status:?CANC (Cancelled) * Provider: Antonio Nuñez DO Date: Generated for Printing/Faxing/eTransmitting on:?09/01/2025 06:23 PM EST
--- OUTSIDE RECORDS SUMMARY | 2025-08-23 23:59 | XMS_ITS | Continuity of Care Document ---
Author Organization [facility] Address [address] [place] [address] Care Team Providers Care Enrichment Specialist Name Role Phone Lexie Douglas Primary Care Physician Encounter FT_AMBFIN [id number] Date(s): 08/23/25 - 08/23/25 [facility] [address] [place] [address]- Encounter Diagnosis BMI 23.0-23.9, adult(Discharge Diagnosis) - 08/23/25 Smoker(Discharge Diagnosis) - 08/23/25 Rib contusion(Discharge Diagnosis) - 08/23/25 Discharge Disposition: Home (Routine DC) Attending Physician: Lexie Blanc Encounter Type: Clinic Allergies, Adverse Reactions, Alerts No Known Allergies Treatment Plan Functional Status 08/23/25 Symptomatic After Exposure to ContagionNoSymptomatic After Travel High-Risk Area NoDroplet, Contact Isolation VerificationN/AAirborne,Contact Isolation VerificationN/A Medications acetaminophen-hydrocodone 325 mg-5 mg oral tablet 1 tab(s), Oral, q6hr for pain, 20 tab(s), Refill(s) 0, [id number], 176, cm, 02/26/25 13:26:00 EDT, Height/Length Dosing, 72, kg, 02/26/25 13:26:00 EDT, Weight Dosing Start Date: 08/21/25 Status: Ordered Medication Dispense Status: Completed Quantity: 20.0 Unit: tab(s) Total Allowed Fills: 1 Fills Dispensed: 0 Albuterol (Eqv-Ventolin HFA) 90 mcg/inh inhalation aerosol INHALE 2 PUFFS BY MOUTH EVERY 4 HOURS NEEDED FOR SHORTNESS OF BREATH Start Date: 04/19/24 Status: Ordered Medication Dispense Status: Completed Total Allowed Fills: 1 Fills Dispensed: 0 albuterol-ipratropium Inh Judi 3 mL UD INHALE 1 VIAL VIA NEBULIZER 4 TIMES DAILY Start Date: 04/19/24 Status: Ordered Medication Dispense Status: Completed Total Allowed Fills: 1 Fills Dispensed: 0 aspirin 81 mg Oral EC Tab mg tab(s), Oral, Daily, Refills(s) 0 Start Date: 04/19/24 Status: Ordered Medication Dispense Status: Completed Total Allowed Fills: 1 Fills Dispensed: 0 atorvastatin 40 mg Tab TAKE 1 TABLET BY MOUTH EVERY DAY Start Date: 04/19/24 Status: Ordered Medication Dispense Status: Completed Total Allowed Fills: 1 Fills Dispensed: 0 Dulera 200 mcg-5 mcg/inh inhalation aerosol INHALE 2 PUFFS BY MOUTH TWICE DAILY. RINSE MOUTH AFTER USE 30 Start Date: 04/19/24 Status: Ordered Medication Dispense Status: Completed Total Allowed Fills: 1 Fills Dispensed: 0 Entresto 24 mg-26 mg oral tablet TAKE 1/2 TABLET BY MOUTH IN THE MORNING AND AT BEDTIME. Start Date: 04/19/24 Status: Ordered Medication Dispense Status: Completed Total Allowed Fills: 1 Fills Dispensed: 0 metoprolol succinate 25 mg ER Tab 12.5 mg = 0.5 tab(s), Oral, Daily, Refills(s) 0 Start Date: 04/19/24 Status: Ordered Medication Dispense Status: Completed Total Allowed Fills: 1 Fills Dispensed: 0 Percocet 7.5/325 oral tablet 1 tab(s), Oral, q6hr for pain, 20 tab(s), Refill(s) 0, [id number], 176, cm, 08/23/25 9:05:00 EST, Height/Length Dosing, 72.2, kg, 08/23/25 9:05:00 EST, Weight Dosing Start Date: 08/27/25 Status: Ordered Medication Dispense Status: Completed Quantity: 20.0 Unit: tab(s) Total Allowed Fills: 1 Fills Dispensed: 0 Indications: Unspecified fracture of unspecified lumbar vertebra, initial encounter for closed fracture; Spiriva Respimat 60 ACT 2.5 mcg/inh inhalation aerosol INHALE 2 PUFFS INTO THE LUNGS EVERY DAY FOR 30 DAYS Start Date: 04/19/24 Status: Ordered Medication Dispense Status: Completed Total Allowed Fills: 1 Fills Dispensed: 0 Problem List ConditionConfirmationCourseEffective DatesStatusHealth StatusInformant CholelithiasisConfirmedActiveBMI 23.0-23.9, adultConfirmedActiveChronic hypoxemic respiratory iwglozjIqdladmjf93/5/23ActiveCOPD (chronic obstructive pulmonary disease)ConfirmedActiveChronic systolic heart ruyyatrCdhunykcs77/5/23 ActiveRib contusionConfirmedActiveCoronary holoryetzayxsidyMcxxypbcj70/5/23 ActiveErectile dysfunctionConfirmed04/21/23ActiveAcid refluxConfirmedActive HyperlipidemiaConfirmedActiveHypertensionConfirmedActiveOverweightConfirmed ActiveBMI 25.0-25.9,adultConfirmedActiveAbdominal pain, right upper quadrant ConfirmedActiveSmokerConfirmedActiveThrombosed external hemorrhoidConfirmed ActiveWheezingConfirmedActive Procedures ProcedureDateRelated DiagnosisBody SiteStatusArthroscopy of kneeCompletedBiopsy of lungCompletedCardiac catheterizationCompletedExcision of Villalobos's cyst of knee CompletedMeniscal repairCompleted Vital Signs Most recent to oldest [Reference Range]:1Temperature Temporal Artery [36.3-37.8 DegC]36.0 DegC *LOW* (08/23/25 8:57 AM)Peripheral Pulse Rate [60-100 bpm]92 bpm (08/23/25 8:57 AM)Respiratory Rate [14-20 br/min]18 br/min (08/23/25 8:57 AM)Blood Pressure [89-139/59-89 mmHg]126/84mmHg (08/23/25 8:57 AM)Blood Pressure LocationLeft arm (08/23/25 8:57 AM)SpO2 [89 %]97 % (08/23/25 8:57 AM) Social History Social History TypeResponseSmoking Status5-9 cigarettes (between 1/4 to 1/2 pack)/day in last 30 days entered on: 08/23/25Birth SexMaleSex RepresentationMale (finding) Reason for Referral Referred ByEffective DateStatusIndicationReasonReferred by: Lexie Blanc 1432-50-35A73:56:19.000-05:00ActiveUnspecified fracture of unspecified lumbar vertebra, initial encounter for closed fracture Referred by: Lexie Blanc P5203-82-75V28:56:19.000-05:00ActiveOther chest pain Other specified injuries of thorax, initial encounter History of falling Unspecified fracture of unspecified lumbar vertebra, initial encounter for closed fracture Patient Care team information Care Team Personnel Name: Lexie Blanc Position: [facility] Ambulatory - Primary Care - LAZARO Member Role: Primary Care Physician Address: [address] [place] [address]- Telecom: Care Team Related Persons Name: ANGELA METZGER Name: ANGELA METZGER Insurance Providers Guarantor name: ZENA PRESTONYERS [facility] Plan Information #: 1 Payer: [facility] Payer Identifier: [id number] Member Number: [id number] Group Number: [id number] Subscriber Identifier: [id number] Relationship to Subscriber: self Coverage Type: MEDICAID Coverage Verification Date: 25 Telecom: [phone] Address: [facility] [address] [place] [phone]
[2025-09-01 16:35] VITALS: BP 103/62; PULSE 49; TEMP 36.6; O2SAT 96; BMI 22.2
--- NOTE | 2025-09-01 17:27 | XR_ITS ---
The [address] [address] Patient Name: ZENA METZGER MRN: [id number] date: 1960 Sex: M Assigned Patient Location: ER Current Patient Location: ER Accession/Order Number: [id number] Exam Date: 09/01/2025 17:47 Report Date: 09/01/2025 18:14 At the request of: GENIE CORRALES DO Procedure: XR ribs LT min 3V w CXR1V Left Rib series withSingle View Chest HISTORY: left rib pain. Popping sensation. Difficulty breathing COMPARISON: None MEDIASTINUM: Cardiac, mediastinal hilar silhouettes are within normal limits. LUNGS AND PLEURA: No acute lung process, pleural effusion or pneumothorax identified. ACUTE FINDINGS: Lateral left ninth rib fracture DEGENERATIVE CHANGE: Unremarkable SOFT TISSUE: Unremarkable POSTOP CHANGES: None XR/XR ribs LT min 3V w CXR1V IMPRESSION: Lateral left ninth rib fracture No acute chest findings. Impression dictated by: Milton Díaz M.D. 09/01/2025 6:14 PM Dictation Location: [place] [address] Electronically authenticated by: [id number] Y Date: 09/01/2025 18:14
[2025-09-01] MEDS: HYDROCODONE/ACET 5-325 MG TABLET 1 TAB PO (17:37)
--- OUTSIDE RECORDS SUMMARY | 2025-09-01 18:22 | XMS_ITS | CCD ---
Author Organization [facility] Care Team Providers Care Frame Table Operator Name Role Phone DIPESH, SANIYA M Admitting [...] BANSAL, DR ELOY Calero Consulting Unavailable SAMSA, TYSHWAN Consulting Unavailable NIMISHA, DR ELOY Calero Primary [...] able Eloy Bansal MD Primary Care Provider [phone] Jailyn Douglas Primary Care Physician [phone] CELSO IBARRA Attending Unavailable ELOY BANSAL Primary Care Unavailable CELSO IBARRA Attending Unavailable ELOY BANSAL Primary Care Unavailable Deyvi, WEAVE DEFECT CHARTING CLERK Jailyn L Referring Unavailable NILLBenji Attending Unavailable Deyvi, WEAVE DEFECT CHARTING CLERK Jailyn L Attending Unavailable Deyvi, WEAVE DEFECT CHARTING CLERK Jailyn Seymour Attending Unavailable Deyvi, WEAVE DEFECT CHARTING CLERK Jailyn Seymour Attending Unavailable Deyvi, WEAVE DEFECT CHARTING CLERK Jailyn Seymour Attending Unavailable Eloy Bansal MD Primary Care Provider CARRI MCKEON Attending Unavailable DEYVI JAILYN Referring Unavailable CARRI MCKEON Attending Unavailable DENICE MORENO Attending Unavailable DENICE MORENO Admitting Unavailable DENICE MORENO Attending Unavailable DENICE MORENO Referring Unavailable BULL LEARY Attending Unavailable CARLEEN VALDEZ Attending Unavailable DENICE MORENO Attending Unavailable Allergies Allergy ClassificationReported Allergen(s)Allergy TypeDate of OnsetReaction(s) Facility (1 source)No Known Medication Allergies; Translations: [No Known Medication Allergies]Propensity to adverse reactions (disorder)[facility] Repository Medications Current Medications MedicationDrug Class(es)DatesSig (Normalized)Sig (Original)[id number] 200 actuat albuterol 0.09 mg/actuat metered dose [...] HFA) 90 mcg/inh inhalation aerosol (1 source)Start: 70-43-7731dhoz 2 puff(s) by mouth every four hours as needed Albuterol (Eqv-Ventolin HFA) 90 mcg/inh inhalation aerosol INHALE 2 PUFFS BY MOUTH EVERY 4 HOURS ASNEEDED FOR SHORTNESS OF BREATH Start Date: 04/19/24 Status: Orderedalbuterol 0.833 mg/ml / ipratropium bromide 0.167 mg/ml inhalation solution (7 sources)Anticholinergic, beta2-Adrenergic AgonistStart: 34-19-5457wzpy 1 dose by inhalation four times dailyalbuterol-ipratropium [...] sources)Platelet Aggregation Inhibitor, Nonsteroidal Anti-inflammatory Drug Start: 55-55-0373qxcg 1 mg by mouth once dailyaspirin 81 mg Oral EC Tab mg tab(s), Oral, Daily, Refills(s) 0 Start Date: 04/19/24 Status: Ordered atorvastatin 40 mg oral tablet (10 sources)HMG-CoA Reductase InhibitorStart: 04-19-2024 End: 74-04-2503yhny 1 tablet by mouth in the morningatorvastatin (Lipitor) 40 MG tablet Take 40 mg by mouth in the morning. 04/19/2024 11/30/2025 ActiveDulera 200 mcg-5 mcg/inh inhalation aerosol (1 source)Start: 89-27-2896zldw 2 puff(s) by mouth twice dailyDulera 200 [...] mg oral tablet (1 source)Histamine-2 Receptor AntagonistStart: 39-43-9746eode 1 tablet by mouth twice dailyfamotidine 20 mg Tab TAKE 1 TABLET BY MOUTH TWICE A DAY Start Date: 04/19/24 Status: Tcyxyxg69 actuat formoterol fumarate 0.005 mg/actuat / mometasone [...] Quantity: 0 Refills: 0 Ordered: 13-May-2022 DO Yglekq03 hr metoprolol succinate 25 mg extended release oral tablet (10 sources)beta-Adrenergic BlockerStart: 92-26-6427affjwlound succinate 25 mg ER Tab 12.5 mg [...] release oral tablet (1 source)Proton Pump InhibitorStart: 99-27-5984nqeh 1 tablet by mouth once dailyPantoprazole [address] Tab 40 mg = 1 tab(s), Oral, Daily, # 90 tab(s), Refills(s) 1, [facility]: [facility]/pharmacy #[id number], 176, cm, 04/19/24 13:00:00 EDT, Height/Length Dosing, 79, kg, 04/19/24 13:00:00 EDT, Weight Dosing Start Date: 04/19/24 Status: Orderedsacubitril 24 mg / valsartan 26 mg oral tablet (10 sources)Angiotensin 2 Receptor BlockerStart: 11-30-2024 End: 42-47-5700nazn 0.5 tablet by mouth in the morningsacubitril-valsartan (Entresto) 24-26 MG tablet Take 0.5 tablets by mouth in the morning and 0.5 tab lets in the evening. 11/30/2024 11/30/2025 ActiveStart: 33-27-5722vsot 0.5 tablet by mouth at bedtimeEntresto 24 mg-26 mg oral tablet TAKE 1/2 TABLET BY MOUTH IN THE MORNING AND AT BEDTIME. Start Date: 04/19/24 Status: Orderedtake 1 tablet by mouth once dailysacubitriL-valsartan (Entresto) 24-26 mg tablet Take 1 tablet by mouth once daily. Mfinoa03 actuat tiotropium 0.0025 mg/actuat inhalation spray (10 sources)AnticholinergicStart: 71-62-5383lxil 2 puff(s) by inhalation once dailySpiriva Respimat [...] pain; Translations: [Right upper quadrant pain] Onset: 44-39-8655WweyykhnEbcnhvh obstructive pulmonary disease and bronchiectasis (18 sources)Centriacinar emphysema; Translations: [Other emphysema]Onset: 27-94-8015RpxpwwjNithxtzvnb heart failure; nonhypertensive (15 sources)Chronic systolic heart failure; Translations: [Chronic systolic heart failure]Onset: 69-56-8438ZdmreydAognhzck atherosclerosis and other heart disease (9 sources)Coronary arteriosclerosis; Translations: [Coronary atherosclerosis of unspecified type of vessel, [place] or graft]Onset: 064022-51-0143Zcmhawk Disorders of lipid metabolism (1 source)Kviyrcfzihudcv45-89-7397IsrtvhbKagiqjqarb disorders (1 source)Gastroesophageal reflux -71-6980IyxvfqtGqvtpyezj hypertension (1 source)Hypertensive zlvyrhej48-00-0717VaohhlcKxdlgzxo; including migraine (4 sources)Headache; including migraine; Translations: [HEADACHE UNSPECIFIED] Onset: 04-39-7502Uowxo valve disorders (1 source)Rheumatic disorders of both mitral and tricuspid valves; Translations: [RHEUMATIC D/O MITRAL TRICUSPID VALV]Onset: 87-13-9673DeuryvuHrmrwuplbbg (6 sources)Thrombosed external hemorrhoids; Translations: [Perianal venous thrombosis]Onset: 660724-34-8842KiorxxkeLuyuc lower respiratory disease (4 sources)Multiple nodules of lung; Translations: [Other nonspecific abnormal finding of lung field]EpisodicOther lower respiratory disease (11 sources)Other nonspecific abnormal finding of lung field; Translations: [Other nonspecific abnormal findingof lung field]Onset: 11-57-8556ScqkwfapZzfaq lower respiratory disease (4 sources)Nodule of lung; Translations: [Solitary pulmonary nodule]Onset: 542099-18-3990VfhjgnfkKwwgz lower respiratory disease (2 sources)Solitary pulmonary nodule; Translations: [Solitary pulmonary nodule] Onset: 78-52-0272FwvtjcdfOovra male genital disorders (1 source)ImpotenceOnset: 095367-62-2858PaoazpwGigzn nutritional; endocrine; and metabolic disorders (1 source)Brcdjmwiwv66-29-9704NjlxqavoBbllj nutritional; endocrine; and metabolic disorders (1 source)Overweight in adulthood with body mass index of 25 or more but less than 0784-16-6657QmcbrpfmBjqfr upper respiratory disease (6 sources)Allergic rhinitis; Translations: [Allergic rhinitis, cause unspecified]Onset: 719552-34-7272BpmevtcLlbvcqoznox failure; insufficiency; arrest (adult) (12 sources)Chronic hypoxemic respiratory failure; Translations: [Chronic respiratory failure]Onset: 628815-38-4488MswvktvNybxyay on above:Uses O2 with during heat and humidity;Substance-related disorders (12 sources)Tobacco dependence syndrome; Translations: [Unspecified drug-induced mental disorder]Onset: 854204-60-3789OboqfdrZmmjmiw disorders (6 sources)Hypothyroidism; Translations: [Unspecified acquired hypothyroidism] Onset: 531730-17-4619YaotdlpJlbxqvcppcfx (1 source)CONTACT W/AND (SUSP) EXPOS COVID-19; Translations: [CONTACT W/AND (SUSP) EXPOS COVID-19]Onset: 72-36-2824Jkdldulmtlnf (2 sources)Post-op; Translations: [Post-op]Onset: 08-22-2024 Past or Other Problems Problem ClassificationProblemDateDocumented DateEpisodic/ChronicBiliary tract disease (10 sources)Biliary calculus; Translations: [Calculus of gallbladder without mention of cholecystitis, without mention of obstruction]Onset: 07-10-2023 17-34-2006UvvxsbqxBtlmlszcv and vision defects (1 source)Unspecified visual disturbance; Translations: [UNSPECIFIED VISUAL DISTURBANCE]Onset: 50-71-7838FyuwrapaPqnycomplzs and hemorrhagic disorders (2 sources)Spontaneous ecchymoses; Translations: [Spontaneous ecchymoses]Onset: 03-96-1250XeszvckdMvqguxesgv associated with dizziness or vertigo (3 sources)Dizziness and giddiness; Translations: [DIZZINESS AND GIDDINESS] Onset: 66-67-8667YixidsmfFtecgsbcnum chest pain (6 sources)Chest pain, unspecified; Translations: [Other chest pain]Onset: 45-30-1412JzfxqgfdNzdnr aftercare (1 source)Other penitentiary (current) drug therapy; Translations: [OTH CANDY PULLER CURRENT DRUG THERAPY]Onset: 20-09-7109DnapdkagXxnlm connective tissue disease (1 source)Pain in arm, unspecified; Translations: [PAIN IN ARM UNSPECIFIED] Onset: 54-99-2037UgtuchtcPvsou ear and sense organ disorders (1 source)Tinnitus, unspecified ear; Translations: [TINNITUS UNSPECIFIED EAR] Onset: 99-17-9892FlpthxibYlbsy lower respiratory disease (4 sources)Other forms of dyspnea; Translations: [OTHER FORMS OF DYSPNEA]Onset: 65-51-8375KmpukymtZtotc lower respiratory disease (2 sources)Shortness of breath; Translations: [Shortness of breath]Onset: 83-79-6415XxsrfqigYvylv screening for suspected conditions (not mental disorders or infectious disease) (1 source)Encounter for screening for malignant neoplasm of respiratory organs; Translations: [ENC SCREEN MALIG NEOPLASM RESP ORGN]Onset: 48-91-0193Xzojguke Results Test NameValueInterpretationReference WdgwzMtyspuvb90dm 30-63-499622Md informed NormalMedina HospitalAmbulatory Visit Summaryon 02-26-2025 Ambulatory Visit SummaryAmbulatory Visit [...] Someone Will Contact You Regarding These Appointments [facility] External Ambulatory Referral, Patient choice/referral by family/friend, Surgery, [facility] Surgery-thrombosed hemorrhoid, 02/26/25 13:35:00 EDT, Thrombosed external [...] signed up for this yet, please contact [facility] at [phone] to get signed up today. Language Information Language assistance services are available as needed. [facility] Medicine Office/Clinic Noteon 21-47-4898Evvmin Medicine Office/Clinic NoteFawhitinsville hospital Medicine Office/Clinic Note HPI Staff Patient is [...] will send referral to general surgery at [facility] for further evaluation. will send in cream to shrink hemorrhoid and to help with pain. all questions answered. RTC as needed Ordered: mineral oil/petrolatum/phenylephrine topical, 1 chloé, Rectal, BID, 28 gm, Refill(s) 0, clean affected area before application, [facility]/pharmacy #[id number], 176, cm, 02/26/25 13:26:00 EDT, Height/Length Dosing,72, kg, 02/26/25 13:26:00 EDT, Weight Dosing nitroglycerin, 1 chloé, Rectal, q12hr, 30 gm, Refill(s) 0, wash hands immediately after application, [facility]/pharmacy #[id number], 176, cm, 02/26/25 13:26:00 EDT, Height/Length Dosing, 72, kg, 02/26/25 13:26:00 EDT, Weight Dosing [facility] External Ambulatory Referral 2. BMI 23.0-23.9, adult [...] Use:., 02/26/2025 Family History Family history is negativeSelect [facility] Specialty Hospital - YoungstownComment on above: Result Comment: Electronically Signed By: Jailyn Blanc\.br\Date and Time Signed: 02/26/25 14:53 EDTFamily Medicine Office/Clinic Noteon 28-97-8597Wwhuar Medicine Office/Clinic NoteFamily Medicine Office/Clinic Note HPI [...] day(s), # 7 tab(s), Refills(s) 0, [id number], 176, cm, 01/30/25 14:03:00 EDT, Height/Length Dosing, 74.8, kg, 01/30/25 14:03:00 EDT, Weight Dosing 2. COPD (chronic obstructive pulmonary disease) (J44.9: Chronic obstructive pulmonary disease, unspecified) kenalog given in office Ordered: levofloxacin, 750 mg = 1 tab(s), Oral, Daily, X 7 day(s), # 7 tab(s), Refills(s) 0, [id number], 176, cm, 01/30/25 14:03:00 EDT, Height/Length Dosing, 74.8, kg, 01/30/25 14:03:00 EDT, Weight Dosing 3. BMI 24.0-24.9, adult (Z68.24: Body mass index [BMI] 24.0-24.9, adult) BMI education Ordered: levofloxacin, 750 mg = 1 tab(s), Oral, Daily, X 7 day(s), # 7 tab(s), Refills(s) 0, Pharmacy: [facility]/pharmacy #[id number], 176, cm, 01/30/25 14:03:00 EDT, Height/Length Dosing, 74.8, kg, 01/30/25 14:03:00 EDT, Weight Dosing 4. Non-smoker (Z78.9: Other specified health status) continue not smoking Ordered: levofloxacin, 750 mg = 1 tab(s), Oral, Daily, X 7 day(s), # 7 tab(s), Refills(s) 0, Pharmacy: [facility]/pharmacy #[id number], 176, cm, 01/30/25 14:03:00 EDT, Height/Length Dosing, 74.8, kg, 01/30/25 14:03:00 EDT, Weight Dosing Orders: pantoprazole, See Instructions, TAKE 1 TABLET BY MOUTH EVERY DAY, # 90 tab(s), Refills(s) 1, Pharmacy: [id number], 176, cm, 05/17/24 14:44:00 EDT, Height/Length Dosing, [...] Use:., 01/30/2025 Family History Family history is negativeSelect Medical Specialty Hospital - YoungstownComment on above: Result Comment: Electronically Signed By: Jailyn Blanc\Date and Time Signed: 01/30/25 14:21 FHO40gy 17-71-021540Xwgfpqigu echo result from 01/15/2025: MD Bhavna Marinelli MA Please tell him that the cardiac function is relatively stable. I will not make changes at this time and I will see him in follow-up in 1 year. Patient informed.[facility] HospitalOffice Visiton 81-66-3374Npilqa-up [id number] Mike Lopez 1960 Date Provider Department Center 11/30/2024 Zan-CARLEEN VALDEZ [facility] Family History Problem Relation Age of Onset Cancer Mother Family Status - Relation Status Age at Mother Level of Service:33469 [place] OFFICE/OUTPATIENT ESTABLISHED MOD MDM [address] [facility] CenterOffice Visiton 94-00-8704Glzhap-up visit [id number] Mike Lopez 1960 Provider Department Center 08/22/2024 Kiera-DENICE MORENO [facility] Fl Family History Problem Relation Age of Onset Cancer Mother Family Status - Relation Status Age at Mother Level of Service:90874 [place] POSTOP FOLLOW UP VISIT RELATED TO ORIGINAL PX Reason for Visit and Comments: Post-op [483] - Mike is here today for post op visit: alculus of gallbladder, s/p 08/10/24 LAP CHOLENormalUniversCincinnati VA Medical Center Anesthesiaon [id number] Mike Lopez 1960 Provider Department Center 08/10/2024 67520-MRELWTANMAY DOUGLAS [facility] Family History Problem Relation Age of Onset Cancer Mother Family Status - Relation Status Age at MotherNormalUniversCincinnati VA Medical CenterHISTOLOGY - TISSUE EXAMon 47-20-3216JZT AP CASE REPORTNormalUniversCincinnati VA Medical CenterComment on above:Order Comment: Pre-op diagnosis:Calculus of gallbladder without cholecystitis without obstruction [K80.20]Result Comment: Surgical Pathology Case: [id number] Authorizing Provider: Denice Moreno MD Collected: 08/10/2024 1443 Ordering Location: [facility] Main Operating Room Received: 08/10/2024 1503 Pathologist: Ese Maher MD Specimen: Gallbladder, GALLBLADDERPerformed By: #### [id number] ####[facility] (BEAKER)[address] [facility], [place] [address]FOO AP CLINICAL INFORMATIONNormal Medina HospitalComment on above:Order Comment: Pre-op diagnosis:Calculus of gallbladder without cholecystitis without obstruction [K 80.20]Result Comment: Post-Op Diagnoses K80.20 - Calculus of gallbladder without cholecystitis without obstruction [ICD-10-CM]Performed By: #### [id number] ####[facility] (BEAKER)[address] [facility], [place] [address]NEA AP GROSS DESCRIPTIONA. Gallbladder.Normal Medina HospitalComment on above:Order Comment: Pre-op diagnosis:Calculus of [...] has an average thickness of 0.1 cm. Water Valve Mechanic sections are submitted as follows: Cassette summary: A1: Cystic duct margin, en face and neck A2: Body and fundus Yadira Carcamo, Pathologists' Business Support StudentPerformed By: #### [id number] ####[facility] (BE[facility])[address] [facility], [place] [address]POJ AP MICROSCOPIC DESCRIPTIONMicroscopic examination performed.[facility] HospitalComment on above:Order Comment: Pre-op diagnosis:Calculus of gallbladder without cholecystitis without obstruction [K80.20]Performed By: #### [id number] ####[facility] ([facility])[address] [facility], [place] [address]OIU AP REPORT FINAL DIAGNOSIS NARRATIVENoalUniMary Rutan Hospital Comment on above:Order Comment: Pre-op diagnosis:Calculus of gallbladder without cholecystitis without obstruction [K80.20]Result Comment: A. Gallbladder, cholecystectomy: - Chronic cholecystitis with cholelithiasis. Performed By: #### [id number] ####[facility] ([facility] [place], [place] [address]ILcj 11-55-2626YOQibhbko Of Present Illness Mike Lopez is a 63 y.o. male presenting with cholelithiasis and chronic cholecystitis. He has been advised to have cholecystectomy. His abdominal pain remains under control at this time, occasionally will have some discomfort. His cargo inspector has seen him and cleared him for [...] obstruction Debbie Burgess MD General Surgery ResidentNormalUniversity UK HealthcareNURSNOTEon 94-15-1904BJTMWNZUVqddcxoda instructions discussed with pt and pt's . Stated understanding. Prescription given and sent home with pt.NormalUnMagruder Memorial HospitalOPNOTEon 98-53-6189OUUPLSFZBZELMKWBIA CHOLECYSTECTOMY Operative Note Date: 08/10/2024 Location: [facility] Name: Mike Lopez, : 1960, Diagnosis Pre-op Diagnosis * Calculus of gallbladder without cholecystitis without obstruction [K80.20] Post-op Diagnosis * Calculus of gallbladder without cholecystitis without obstruction [K80.20] Procedures LAPAROSCOPIC CHOLECYSTECTOMY 78139 - [place] LAPS SURG CHOLECYSTECTOMY W/CHOLANGIOGRAPHY Surgeons Primary: Denice Moreno MD Resident - Assisting: Panfilo Burgess MD Procedure Summary Anesthesia: General ASA: IV Estimated Blood Loss: Minimal Total IV Fluids: 500 mL Drains: * None in log * Specimens ID Source Type Tests Collected By Collected At Frozen? Priority Lab ID A Gallbladder Tissue HISTOLOGY - TISSUE EXAM Denice Moreno MD 08/10/24 1443 No [id number] Description: GALLBLADDER Staff: E Commerce Marketing Analyst: Clark Bonner RN; Osman Jacobs RN Relief Scrub: Vianca Faria, LAYER OUT PLATE GLASS Scrub Person: Ruba Petty CST Indications: Mike [...] - hemodynamically stable. Condition: stable Denice Moreno DvvpwyYbrccrratiMercer County Community HospitalCT GLUCOSE METER UNSOLICITED RESULTSon 62-16-5085Sqjmstd [Mass/Vol]99 mg/aAQwvztv30-661 Medina HospitalComment on above:Order Comment: Waived Testing in the ED is performed under the ED CLIA certificate #[id number].Result Comment: rnfujr2Sdbinowob By: #### [id number] ####[facility] ([facility])[address] [place], [place] [address]do ----- Message ----- From: Bull Leary NP Sent: 06/27/2024 2:48 PM EDT To: Julieta Boyd MA Subject: RE: Import I called. They said the time frame for peer to peer is out of the time window. Unfortunately, let the patient know his insurance denied the ECHO and we can try again in a few months. Thanks LM on VM.NormalUnMagruder Memorial HospitalConsulton 42-85-5989Zwrrpgv [id number] Mike Lopez 1960 M Date Provider Department Center 06/26/2024 Kiera-DENICE MORENO [facility] Fl Family History Problem Relation Age of Onset Cancer Mother Family Status - Relation Status Age at Mother Level of Service:36817 [place] OFFICE/OUTPATIENT NEW LOW MDM 30 MINUTES Reason for Visit and Comments: Consult [484] - Mike is here today for consult: Calculus of gallbladder, S/P CT abdomin and pelvisNormalUniversCincinnati VA Medical CenterOffice Visiton 35-92-3364Qsvlzs-up [id number] Mike Lopez 1960 M Date Provider Department Center 05/23/2024 Shelby-BULL LEARY [facility] Family History Problem Relation Age of Onset Cancer Mother Family Status - Relation Status Age at Mother Level of Service:80461 [place] OFFICE/OUTPATIENT ESTABLISHED MOD MDM 30 MIN Reason for Visit and Comments: Congestive Heart Failure [127]NormalUnMagruder Memorial Hospital Ambulatory Visit Summaryon 32-86-1221Hycetokngx Visit SummaryAmbulatory Visit Summary MIKE LOPEZ :1960 [...] you for choosing us for your care. [facility] YoungstownFawhitinsville hospital Medicine Office/Clinic Noteon 86-67-3958Oxqyns Medicine Office/Clinic NoteFawhitinsville hospital Medicine Office/Clinic Note Chief Complaint Follow up to gallstones HPI Staff Mike is a 63 year old male presenting with 4 week f/u to gallstones US right upper quadrant @ [facility] on 04/25/24 was supposed to have [...] Yes, 05/17/2024 Family History Family history is negativeSelect Medical Specialty Hospital - YoungstownComment on above: Result Comment: Electronically Signed By: Jailyn Blanc\.br\Date and Time Signed: 05/17/24 15:00 EDTAmbulatory Visit Summaryon 36-27-2135Zkuwelzdko Visit SummaryAmbulatory Visit Summary MIKE LOPEZ :1960 [...] 2:40 PM EDT With: Jailyn Blanc Where: [place] [id number]- Medications What How Much When Why Instructions New pantoprazole (Pantoprazole [address] Tab) 1 Tablets By Mouth Every day Gallstones Acid reflux BMI 25.0-25.9,adult Overweight Smoker Refills: 1 Pickup at [facility]/pharmacy #[id number] Unchanged albuterol (Albuterol (Eqv-Ventolin HFA) 90 mcg/ [...] EVERY DAY FOR 30 DAYS Pharmacy Information [facility]/pharmacy #[id number]: [address] [place], [place] [id number] [phone] Allergies No Known Medication Allergies Problems Ongoing [...] you for choosing us for your care. [facility] Medicine Office/Clinic Noteon 54-28-9048Dxetoj Medicine Office/Clinic NoteFawhitinsville hospital Medicine Office/Clinic Note Chief Complaint Establish Care HPI Staff Pt is here today to establish care. 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 Bansal Any recent labs: [facility] ER 03/11/24 Health Maintenance UTD: Colonoscopy: denies PSA: denies Acute: Current issues/complaints: abdominal problems: [facility] ER 03/11/24. CC: abdominal pain CT [...] best. order for u/s of gallbladder to [facility] provided and faxed. RTC 1 months for follow up. may consider lipid panel Ordered: pantoprazole, 40 mg = 1 tab(s), Oral, Daily, # 90 tab(s), Refills(s) 1, [id number] 176, cm, 04/19/24 13:00:00 EDT, Height/Length [...] Daily, # 90 tab(s), Refills(s) 1, [id number], 176, cm, 04/19/24 13:00:00 EDT, Height/Length Dosing, 79, kg, 04/19/24 13:00:00 EDT, Weight Dosing 3. BMI 25.0-25.9,adult (Z68.25: Body mass index [BMI] 25.0-25.9, adult) BMI education given Ordered: pantoprazole, 40 mg = 1 tab(s), Oral, Daily, # 90 tab(s), Refills(s) 1, [id number] 176, cm, 04/19/24 13:00:00 EDT, Height/Length Dosing, 79, kg, 04/19/24 13:00:00 EDT, Weight Dosing 4. Overweight (E66.3: Overweight) see above Ordered: pantoprazole, 40 mg = 1 tab(s), Oral, Daily, # 90 tab(s), Refills(s) 1, [id number] 176, cm, 04/19/24 13:00:00 EDT, Height/Length Dosing, 79, kg, 04/19/24 13:00:00 EDT, Weight Dosing 5. Smoker (F17.200: Nicotine dependence, unspecified, uncomplicated) consider not smoking Ordered: pantoprazole, 40 mg = 1 tab(s), Oral, Daily, # 90 tab(s), Refills(s) 1, [id number] 176, cm, 04/19/24 13:00:00 EDT, [...] to 1/2 pack (more content not included)...Normal [facility] HospitalComment on above:Result Comment: Electronically Signed By: Jailyn Blanc\Date and Time Signed: 04/19/24 13:32 EDTOffice Visit (Thoracic and Esophageal Surgery)on 48-10-5452Akqnie-up visit Diagnoses/Problems Assessed Centrilobular emphysema (492.8) (J43.2) [...] discussion of perhaps a cardiomyopathy. No h/o RI. Patient had a prior drinking history many [...] Ibarra DO; May 03 2023 10:38AM EST (Author)[facility] TouchworksCT CHEST WO CONon 46-36-4532HE CHEST WO CON EXAMINATION: CT CHEST WO [...] Electronically authenticated by: ARMANDO GALARZA Date: 2022-09-22 15:[address] [place], [place] [address]Con 05-70-9628Rlvfnjaiqyo distribution width (RBC) [Ratio] 12.8 %Kyalgv00.5 - 14.5St. Infirmary WestComment on above:Performed By: #### CBC #### [address] [address]Vszyivvdaa (Bld) [Volume fraction]48.1 %Fpopdt69.0 - 52.0St. Infirmary WestComment on above:Performed By: #### CBC #### [address] [address]Rqmlktpowy (Bld) [Mass/Vol]16.4 g/sHJipilg15.5 - 17.5St. Infirmary WestComment on above:Performed By: #### CBC #### [address] [address]UDIA (RBC) [Mass/Vol]34.1 g/eVIxsbsv52.0 - 36.0St. Infirmary WestComment on above:Performed By: #### CBC #### [address] [address]LFI (RBC) [Entitic vol]93 fOCpvybo98 - 100St. Infirmary WestComment on above:Performed By: #### CBC #### [address] [address]EDJNHVGRX RBC0.0 /100 WBCNormal0.0 - 0.0St. Infirmary WestComment on above:Performed By: #### CBC #### [address] [address]Qvvrmxbup (Bld) [#/Vol]189 10*3/rLVkulmj532 - 450St. Infirmary WestComment on above:Performed By: #### CBC #### [address] [address]CAB9.18 x10E12/LNormal4.50 - 5.90[facility] Comment on above:Performed By: #### CBC #### [address] [place] [address]NWJ (Bld) [#/Vol]8.3 10*3/uLNormal4.4 - 11.3St. Infirmary WestComment on above:Performed By: #### CBC #### [address] [place] [address]OUQPK 1 VIEWon 96-49-4795KXZHN 1 VIEWMRN: [id number] Patient Name: MIKE LOPEZ STUDY: CHEST 1 VIEW; 06/28/2022 2:43 pm INDICATION: left lung biopsy . COMPARISON: 10/12/2021 ACCESSION NUMBER(S): [id number] ORDERING CLINICIAN: EDUARDO MAS FINDINGS: CARDIOMEDIASTINAL SILHOUETTE: [...] No pneumothorax. Electronically signed by: Emelia HANSEN. [facility] 1 VIEWMRN: [id number] Patient Name: MIKE LOPEZ STUDY: CHEST 1 VIEW; 06/28/2022 1:41 pm INDICATION: Left lung biopsy . COMPARISON: 06/28/2022 ACCESSION NUMBER(S): [id number] ORDERING CLINICIAN: EDUARDO MAS FINDINGS: DEVICES: None [...] [facility] CenterIN [facility] PERCUTANEOUS NEEDLEon 40-50-1074LW BIOPSY LUNG PERCUTANEOUS NEEDLE Patient Name: MIKE LOPEZ STUDY: IN BIOPSY LUNG; PERCUTANEOUS NEEDLE; 06/28/2022 12:15 pm INDICATION: CT needle biopsy ANDRE R91.8: Multiple pulmonary nodules. COMPARISON: None. ACCESSION NUMBER(S): [id number] ORDERING CLINICIAN: CELSO IBARRA TECHNIQUE: PHOTOENGRAVING HELPER: Eduardo Mas MD CONSENT: The patient was [...] and versed. Total intra-service sedation time from 1720-7605 hours (25 minutes). The physician was assisted [...] above. Electronically signed by: EDUARDO MAS MDNormalSt. Infirmary WestPT/INRon 78-44-7218GK Coag (PPP) [Time]12.2 sNormal9.8 - 13.4St. Infirmary WestComment on above:Performed By: #### PTINR #### [address] [place], [place] [address]DJ, INR1.4Khtaaz5.9 - 1.1St. Infirmary WestComment on above:Performed By: #### PTINR #### [address] [place], [place] [address]HAO Surgical Pathology Departmenton [id number] Surgical Pathology DepartmentName MIKE LOPEZ Pathologist: Katelynn Cyr MD, Ph.D. Date of Procedure: 06/28/2022 Date Received: 06/28/2022 Date Reported 07/01/2022 Submitting Physician: CELSO IBARRA DO Location: [facility] Copy To/Referring/Attending: EDUARDO MAS MD Other External # FINAL DIAGNOSIS LUNG, LEFT UPPER LOBULE NODULE, BIOPSY: --MINUTE FRAGMENT OF LUNG PARENCHYMA WITHOUT SIGNIFICANT PATHOLOGIC FINDINGS, INSUFFICIENT FOR DIAGNOSIS. SEE NOTE Note: Microscopic examination of H AND E sections demonstrates minute fragments of lung parenchyma without significant abnormalities. Findings might not be customer support representative of the clinically identified lesion. Clinical correlation is recommended Electronically Signed Out By Katelynn Cyr MD, Ph.D./MAC By the signature on this report, the individual or group listed as making the Final Interpretation/Diagnosis certifies that they have reviewed this case. Diagnostic interpretation performed at [facility] [address] [facility] [address] Clinical History: Physician Contact Number: [phone] Fixative (A): Formalin Clinical Diagnosis History LEFT LUNG NODULE Specimens Submitted As: A: LEFT UPPER LUNG NODULE Gross Description: Received in formalin, labeled with the patient?s name and hospital number and left lung nodule bx , are multiple minute pink-white, soft tissue fragments aggregating to 0.3 x 0.2 x 0.1 cm. The specimen is submitted in toto in one cassette. RCC rcc/06/28/2022 [facility] Department of Pathology [address] [place], [place] [address]EknvybHUSan Luis Valley Regional Medical CenterComment on above:Performed By: #### [facility] #### [facility] Surgical Pathology Department [address] [facility] [address]EQB BRAIN WO CONon 07-31-9796SXB BRAIN WO CONMRI BRAIN WITHOUT CONTRAST. INDICATION: [...] Electronically authenticated by: TAMIE URIOSTEGUI Date: 2022-06-09 13:29[facility] HospitalHEMOGLOBINon 86-46-4416Jicgtfimle (Bld) [Mass/Vol]15.7 g/dL Rpqhlq48.0-18.0[facility]aut Medical CenterComment on above:Performed By: #### BMP #### [facility] [address] [address] [address] Richard Bower Visit (Thoracic and Esophageal [...] Capacity DLCO; Status:Active - Retrospective Authorization; Requested for:[id number]; Pre/PostBronchodilator Spirometry; Status:Active - Retrospective Authorization; Requested for:[id number]; Provider Impressions Mr. Lopez is a pleasant [...] somediscussion of perhaps a cardiomyopathy. No h/o RI. Patient had a prior drinking history many [...] Father (more content not included)...NormalUH TouchworksTobacco Screening.on 89-19-3481Xezk risk assessmenta) No falls within the last year LO-Ykgjokpwvv-Deddzq 101 Work Phone: Tobacco use status CPHSa) CgsCP-Wwnuecmhuj-Nlwkrn 101 Work Phone: FUNGAL AB QUANTITAIVE DOUBLE IMMUNODIFFUon 04-17-2022 Aspergillus flavusNegativeNormalNeg:<1:1[facility] Medical CenterComment on above: Performed By: #### CVDTBH #### [facility] [address] [place] [address] Dr. Richard Wright fumigatusNegativeNormalNeg:<1:1[facility] Comment on above:Performed By: #### CVDTBH #### [facility] [address] [place] [address] Dr. Richard Wright nigerNegativeNormalNeg:<1:1[facility] Comment on above:Performed By: #### CVDTBH #### [facility] [address] [place] [address] Dr. Richard LinaresBlastomycesNegativeNormalNeg:<1:1[facility] CenterComment on above:Performed By: #### CVDTBH #### [facility] [address] [place] [address] Dr. Richard Banerjee CAP AB QUANT DIDon 52-32-2701Thshfnmnkzg Mycelial CF Ab.NegativeNormalNeg:<1:2[facility] CenterComment on above:Performed By: #### BMP #### [facility] [address] [place] [address] Dr. Yilan ChangHistoplasma Yeast CF Ab1:2NormalNeg:<1:2[facility] Comment on above:Performed By: #### BMP #### [facility] [address] [place] [address] Dr. Richard Delacruz NEUTROPHIL CYTOPLASMIC AB (ANCA) PRon 01-89-2292Sard-MPO Antibodies<0.5Rhetyi7.0-0.9[facility] CenterComment on above:Result Comment: Performed at: BNPerformed By: #### BMP #### [facility] [address] [place] [address] Dr. Richard Delacruz-PR3 Antibodies<0.2Nkkijs9.0-0.9[facility] CenterComment on above:Result Comment: Performed at: BNPerformed By: #### BMP #### [facility] [address] [place] [address] Dr. Richard LinaresAtypical pANCA<1:20NormalNeg:<1:20ThJoint Township District Memorial HospitalComment on above:Result Comment: The atypical pANCA pattern has been observed in a significant percentage of patients with ulcerative colitis, primary sclerosing cholangitis and autoimmune hepatitis. Performed at: CBPerformed By: #### BMP #### [facility] [address] [place] [address] Dr. Richard LinaresCytoplasmic (C-ANCA)<1:20NormalNeg:<1:20ThJoint [facility] District Memorial Hospital Comment on above:Result Comment: Performed at: CBPerformed By: #### BMP #### [facility] [address] [place] [address] Dr. Richard LinaresPerinuclear (P-ANCA)<1:20NormalNeg:<1:20ThJoint [facility] District Memorial Hospital Comment on above:Result Comment: The presence of positive fluorescence exhibiting P-ANCA or C-ANCA patterns alone is not specific for the diagnosis of Arnulfo's Granulomatosis (WG) or microscopic polyangiitis. Decisions about treatment should not be based solely on ANCA IFA results. The International ANCA Group Consensus recommends follow up testing of positive sera with both WA-3 and MPO-ANCA enzyme immunoassays. As many as 5% serum samples are positive only by EIA. Ref. AM J Clin Pathol 1999;111:507-513. Performed at: CBPerformed By: #### BMP #### [facility] [address] [place] [address] Dr. Richard LinaresCYCLIC CITRULLINATED PEPTIDE AB (CCP)on 23-37-6511VQU Antibodies IgG/IgA1 unitsNormal0-19The [facility] Community HospitalComment on above:Result Comment: Negative <20 Weak positive 20 - 39 Moderate positive 40 - 59 Strong positive >59Performed By: #### CVDTBH #### [facility] [address] [place] [address] Dr. Richard LinaresHISTOPLASMA GALACTOMANNAN AG URINEon 23-48-9829Igfzwuveedf Gal'madhuri Ag<0.5Normal<0.5 ng/mLThe [facility] HospitalComment on above:Performed By: #### HISTGAL #### [facility] [address] [place] [address] Dr. Richard Boykin EIA W/REFLEX 5 BIOMARKERSon 27-27-8151RPR DirectNegative NormalNegativeUniversity Hospitals Conneaut Medical CenterComment on above:Performed By: #### CVDTBH #### [facility] [address] [place] [address] Dr. Richard PriceOTENSION-CONVERTING ENZYME (MATT)on 71-50-0607WCW23 U/LNormal 14-82The [facility] HospitalComment on above:Performed By: #### ANGIOC #### [facility] [address] [place] [address] Dr. Richard LinaresANTISCLERODERMA ABon 74-11-2386Hzxyfjpfycatfif-70 Antibodies<0.2 Normal0.0-0.9The [facility] HospitalComment on above:Performed By: #### ANSCLER #### [facility] [address] [place] [address] Dr. Richard LinaresRHEUMATOID FACTORon 73-32-5795EX Latex Turbid.<10.0Normal<14.0The [facility] HospitalComment on above:Performed By: #### BMP #### [facility] [address], [place] [address] Dr. Richard Asher RATE WESTERGRENon 46-45-3557TYS RATE1 mm/hrNormal<=20The [facility] HospitalComment on above:Performed By: #### SEDR #### [facility] [address], [place] [address] SKULL BASE MID THIGHon 99-10-5914HNI CT SKULL BASE [facility] THIGHNLUTHERAN [facility] MEDICINE PET/CT HISTORY: Solitary pulmonary nodule. [...] Electronically authenticated by: ANGELITO MILAN Date: 2022-04-12 14:48NormMercy Health Tiffin Hospital LUNG CANCER SCREENINGon 44-69-5216WU LUNG CANCER SCREENING EXAMINATION: CT LUNG CANCER [...] Electronically authenticated by: ARMANDO GALARZA Date: 2022-03-25 08:[address] [place], [place] [address]ECHOCARDIO M/2D COMPLETEon 51-89-3445MTCBLJSBYR M/2D COMPLETE Patient: MIKE LOPEZ Exam Date: 03/24/2022 : 1960 Gender:M Ordering : SANIYA LANDON Admission #: [id number] Family : DR ELOY BANSAL . Order #: [id number] CLICK HERE TO VIEW EXAM ECHOCARDIOGRAM REPORT [...] by: Neel Lu M.D. on 03/24/2022 at 17:32[facility] HospitalPROF CHEM 8 (BAS METB)on 27-07-9632Mavlh gap [Moles/Vol]13.4 mmol/L NormalThe [facility] HospitalComment on above:Performed By: #### CVDTBH #### [facility] [address] [place] [address] Dr. Richard LinaresCalcium [Mass/Vol]9.0 mg/dLNormal8.5-10.1[facility] Comment on above:Performed By: #### CVDTBH #### [facility] [address] [address] [address] Richard LinaresChloride [Moles/Vol]102 mmol/DYbetzu02-228Hlx [facility] Comment on above:Performed By: #### CVDTBH #### [facility] [address] [address] [address] Richard LinaresCO2 [Moles/Vol]32.1 mmol/LCritically high21.0-32.0The [facility] HospitalComment on above:Performed By: #### CVDTBH #### [facility] [address] [place] [address] Dr. Richard LinaresCreatinine [Mass/Vol]1.00 mg/dLNormal0.70-1.30The [facility] HospitalComment on above:Performed By: #### CVDTBH #### [facility] [address] [place] [address] Dr. Richard PaceGFR-AF CITIZEN [place]>=60Normal>=60The [facility] HospitalComment on above:Performed By: #### CVDTBH #### [facility] [address] [place] [address] Dr. Richard PaceGFR-NON AF CITIZEN OF [place]>=60Normal>=60The [facility] Community HospitalComment on above:Performed By: #### CVDTBH #### [facility] [address] [place] [address] Dr. Richard LinaresGlucose [Mass/Vol]109 mg/dLCritically nmnq53-856Oph [facility] HospitalComment on above:Performed By: #### CVDTBH #### [facility] [address] [place] [address] Dr. Richard LinaresPotassium [Moles/Vol]4.5 mmol/LNormal3.5-5.1The [facility] Comment on above:Performed By: #### CVDTBH #### [facility] [address] [place] [address] Dr. Richard LinaresSodium [Moles/Vol]143 mmol/WSueljs488-454Fnq [facility] Comment on above:Performed By: #### CVDTBH #### [facility] [address] [address] [address] Richard Mackay nitrogen [Mass/Vol]11.0 mg/dLNormal7.0-18.0The [facility] HospitalComment on above:Performed By: #### CVDTBH #### [facility] [address], [place] [address] Dr. Richard LinaresUrea nitrogen/Creatinine [Mass ratio]11.0 mg/mgNormalThe [facility] HospitalComment on above:Performed By: #### CVDTBH #### [facility] [address] [address] [address] Richard LinaresCardiovascular Lab Reporton 28-70-6365Rtppswpftvbskd Lab Report [facility]: [id number] Physician: Carleen Bonilla Department of [facility] Service Date: 12/21/2021 Division of Birthdate: 1960 Cardiology Room #: Adult Cardiovascular Services [place] [address] Cardiovascular Laboratory Report INDICATION: The patient is [...] signed informed consent. He was brought to medical lab director in a fasting state. The right neck area was prepped and draped in usual fashion. Micropuncture technique and ultrasound guidance were used for access in the right internal jugular vein. A 6-Micronesian x 11 cm sheath was placed. A 6-Micronesian Barboza catheter was used for right catheterization with measurement of pressures and calculation of cardiac output using the estimated Bridget method. Barboza catheter was removed. Modified Tyrone's test was favorable on the right. Access in the right radial artery was obtained using micropuncture technique and ultrasound guidance. A 6-Micronesian x 11 cm Hydrophilic sheath was advanced. Verapamil was given through the sheath, and heparin was administered intravenously. Bilateral selective coronary angiography was then performed using 6-Micronesian JL3.5 and JR5 diagnostic catheters. Catheters were [...] Valdez M.D. Date Trans: 12/22/2021 04:31 A/neymaro DN_JN:[id number] cc: Eloy Bansal M.D. 1 [facility] A [facility] [id number] HealthCBC AUTO DIFF on 65-35-8206CTEF #0.1 103/ulNormal0.0-0.1The [facility] HospitalComment on above: Performed By: #### CBC #### [facility] [address] [address] [address] Richard LinaresBasophils/100 WBC (Bld)0.8 %Normal0.2-2.0[facility] Comment on above:Performed By: #### CBC #### [facility] [address] [address] [address] Richard Garland #0.0 103/ulNormal0.0-0.7The [facility] HospitalComment on above: Performed By: #### CBC #### [facility] [address] [address] [address] Richard Paceosinophils/100 WBC (Bld)0.0 %Critically low0.9-7.0The [facility] HospitalComment on above:Performed By: #### CBC #### [facility] [address] [address] [address] Richard Pacerythrocyte distribution width (RBC) [Ratio]12.9 %Htldvk52.0-15.0 The [facility] HospitalComment on above:Performed By: #### CBC #### [facility] [address] [place] [address] Dr. Richard LinaresHematocrit (Bld) [Volume fraction]46.1 %Ijivds19.0-54.0The [facility] HospitalComment on above:Performed By: #### CBC #### [facility] [address] [place] [address] Dr. Richard LinaresHemoglobin (Bld) [Mass/Vol]15.6 g/dKGxjhkt02.0-18.0The [facility] HospitalComment on above:Performed By: #### CBC #### [facility] [address] [place] [address] Dr. Richard Lubin #0.04 10e3/ulCritically high0.00-0.03The [facility] Comment on above:Performed By: #### CBC #### [facility] [address] [place] [address] Dr. Richard Lubin %0.5 %Normal0.0-0.5The [facility] HospitalComment on above: Performed By: #### CBC #### [facility] [address] [place] [address] Dr. Richard Taveras #1.5 103/ulNormal1.2-3.8The [facility] HospitalComment on above:Performed By: #### CBC #### [facility] [address] [place] [address] Dr. Richard Quickhocytes/100 WBC (Bld)17.7 %Critically low20.5-60.0The [facility] HospitalComment on above:Performed By: #### CBC #### [facility] [address] [place] [address] Dr. Richard LeosUAL DIFF REQNONormalThe [facility] HospitalComment on above: Performed By: #### CBC #### [facility] [address] [place] [address] Dr. Richard Polk (RBC) [Entitic mass]31.1 hoHytnub93.9-34.0The [facility] HospitalComment on above:Performed By: #### CBC #### [facility] [address] [place] [address] Dr. Richard Dueñas (RBC) [Mass/Vol]33.8 g/lELnxzcj65.9-35.2The [facility] HospitalComment on above:Performed By: #### CBC #### [facility] [address] [place] [address] Dr. Richard DueñasV (RBC) [Entitic vol]92.0 uFJgesng94.0-94.0The [facility] HospitalComment on above:Performed By: #### CBC #### [facility] [address] [place] [address] Dr. Richard Hinojosa #0.7 103/ulNormal0.3-0.8The [facility] HospitalComment on above:Performed By: #### CBC #### [facility] [address] [place] [address] Dr. Richrad Lynneocytes/100 WBC (Bld)8.7 %Normal1.7-12.0The [facility] Comment on above:Performed By: #### CBC #### [facility] [address] [place] [address] Dr. Richard Farley #6.2 103/ulNormal1.4-6.5The [facility] HospitalComment on above:Performed By: #### CBC #### [facility] [address] [place] [address] Dr. Richard Sanchezutrophils/100 WBC (Bld)72.3 %Vnoysz43.0-75.0The [facility] HospitalComment on above:Performed By: #### CBC #### [facility] [address] [place] [address] Dr. Richard Riveralet mean volume (Bld) [Entitic vol]10.2 fLNormal9.5-13.5The [facility] HospitalComment on above:Performed By: #### CBC #### [facility] [address] [place] [address] Dr. Richard PatelT197 103/keWjqwps227-895Izp [facility] HospitalComment on above: Performed By: #### CBC #### [facility] [address] [place] [address] Dr. Richard TilleyC5.01 106/ulNormal4.70-6.10The [facility] Community HospitalComment on above:Performed By: #### CBC #### [facility] [address] [place] [address] Dr. Richard LinaresWBC8.5 103/ulNormal4.0-11.0The [facility] HospitalComment on above: Performed By: #### CBC #### [facility] [address] [place] [address] Dr. Richard LinaresCovid-19 PCR ([facility])on 45-85-0281GZKS-CoV-2 (COVID-19) RNA MOLLY+probe Ql (Unsp spec)Not detectedNormalNOT DETECTEDThe [facility] Comment on above:Result Comment: This test is not yet approved or cleared by the [place] FDA. When there are no FDA-approved or cleared tests available, and other criteria are met, FDA can make tests available under an emergency access mechanism called an Emergency Use Authorization (EUA). The EUA for this test is supported by the [employer] Worker of Health and Human Service's (HHS's) declaration [...] consistent with SARS-CoV-2.Performed By: #### BMP #### [facility] [address] [place] [address] Dr. Richard LinaresPROF CHEM 8 (BAS METB)on 16-86-9840Swzrg gap [Moles/Vol]6.2 mmol/LNormalThe [facility] HospitalComment on above:Performed By: #### BMP #### [facility] [address] [place] [address] Dr. Richard LinaresCalcium [Mass/Vol]8.2 mg/dLCritically low8.5-10.1[facility] CenterComment on above:Performed By: #### BMP #### [facility] [address] [address] [address] Richard LinaresChloride [Moles/Vol]102 mmol/XRtyung00-971Nhv [facility] Comment on above:Performed By: #### BMP #### [facility] [address] [address] [address] Richard LinaresCO2 [Moles/Vol]34.6 mmol/LCritically high22.0-30.0The [facility] HospitalComment on above:Performed By: #### BMP #### [facility] [address] [place] [address] Dr. Richard LinaresCreatinine [Mass/Vol]0.96 mg/dLNormal0.66-1.25The [facility] HospitalComment on above:Performed By: #### BMP #### [facility] [address] [address] [address] Richard PaceGFR-AF CITIZEN OF [place]>60Normal>=60The [facility] HospitalComment on above:Performed By: #### BMP #### [facility] [address] [place] [address] Dr. Richard PaceGFR-NON AF CITIZEN [place]>60Normal>=60The [facility] HospitalComment on above:Performed By: #### BMP #### [facility] [address] [address] [address] Richard LinaresGlucose [Mass/Vol]94 mg/eARgmlck51-564PfmUniversity Hospitals Conneaut Medical Center Comment on above:Performed By: #### BMP #### [facility] [address] [address] [address] Richard LinaresPotassium [Moles/Vol]3.8 mmol/LNormal3.4-5.0The [facility] Comment on above:Performed By: #### BMP #### [facility] [address] [address] [address] Richard LinaresSodium [Moles/Vol]139 mmol/KClqmpq531-912Xab [facility] Comment on above:Performed By: #### BMP #### [facility] [address], [place] [address] Dr. Richard Mackay nitrogen [Mass/Vol]11.0 mg/dLNormal7.0-18.0The [facility] HospitalComment on above:Performed By: #### BMP #### [facility] [address], [place] [address] Dr. Richard LinaresUrea nitrogen/Creatinine [Mass ratio]11.5 mg/mgNormalThe [facility] HospitalComment on above:Performed By: #### BMP #### [facility] [address] [address] [address] Richard LinaresUS carotid doppler BIon 82-79-7348FG carotid doppler [facility] [place] [address] [place] [address] Ultrasound Report Signed Patient: Mike Lopez MR#: [id number] : 1960 Acct:[id number] Age/Sex: 61 / M ADM Date: 12/01/21 Loc: Room: Type: [facility] Attending Dr: Saniya CASTILLO Ordering Provider: [...] Milton Wei M.D.12/02/2021 4:20 PM Dictation Location: [place] [address] Tech: [facility] Transcribed By: DIANA 12/02/21 1620 Dictated By: Milton Wei MD 12/02/21 1619 Signed By: 12/02/21 1620[facility] CenterECHOCARDIO M/2D COMPLETEon 91-67-0882QGVNFYAOAZ M/2D COMPLETEPatient: DOMENICAMIKE CoelhoNancy Exam Date: 11/27/2021 : 1960 Gender:M Ordering : SANIYA LANDON Admission #: [id number] Family : Order #: [id number] CLICK HERE TO VIEW EXAM ECHOCARDIOGRAM REPORT [...] Area(A4C): 15.10 cm2 Left Atrium Systolic Volume(A2C): 90959 mm3 Left Atrium Systolic Volume(A4C): 65720 mm3 Mitral Valve MV E to A Ratio: 0.80 Deceleration [place]: 4530 mm/s2 Mitral Valve A-Wave Peak Velocity: [...] by: Carleen Valdez M.D. on 11/30/2021 at 10:35[facility] STRESS/REST MULTIon 75-28-2162RH STRESS/REST MULTIPatient: MIKE LOPEZ Exam Date: 10/26/2021 : 1960 Gender:M Ordering : DR ELOY BANSAL . Admission #: [id number] Family : Order #: [id number] CLICK HERE TO VIEW EXAM RADIOLOGY REPORT [...] DEFECT: LOCATION: Basal inferior. Mid-inferior. Apical inferior. [place]. SIZE: Medium (3-4 segments). SEVERITY: Moderate. TYPE: [...] by: Armando Galarza MD on 11/09/2021 at 11:40NormalThAdams County [facility] AUTO DIFFon 81-81-9265WDLK #0.0 103/ulNormal0.0-0.1The [facility] HospitalComment on above:Performed By: #### BMP #### [facility] [address] [place] [address] Dr. Richard LinaresBasophils/100 WBC (Bld)0.5 %Normal0.2-2.0[facility] Comment on above:Performed By: #### BMP #### [facility] [address] [place] [address] Dr. Richard Garland #0.0 103/ulNormal0.0-0.7The [facility] HospitalComment on above: Performed By: #### BMP #### [facility] [address] [place] [address] Dr. Richard Paceosinophils/100 WBC (Bld)0.0 %Critically low0.9-7.0The [facility] HospitalComment on above:Performed By: #### BMP #### [facility] [address] [place] [address] Dr. Richard Pacerythrocyte distribution width (RBC) [Ratio]12.8 %Gcmzya29.0-15.0 [facility] CenterComment on above:Performed By: #### BMP #### [facility] [address] [place] [address] Dr. Richard LinaresHematocrit (Bld) [Volume fraction]41.8 %Critically low42.0-54.0 [facility] CenterComment on above:Performed By: #### BMP #### [facility] [address] [place] [address] Dr. Richard LinaresHemoglobin (Bld) [Mass/Vol]14.4 g/lTSicfjb69.0-18.0The [facility] HospitalComment on above:Performed By: #### BMP #### [facility] [address] [place] [address] Dr. Richard Lubin #0.01 10e3/ulNormal0.00-0.03The [facility] HospitalComment on above:Performed By: #### BMP #### [facility] [address] [place] [address] Dr. Richard Lubin %0.2 %Normal0.0-0.5The [facility] HospitalComment on above: Performed By: #### BMP #### [facility] [address] [place] [address] Dr. iRchard Taveras #0.9 103/ulCritically low1.2-3.8[facility] Comment on above:Performed By: #### BMP #### [facility] [address] [place] [address] Dr. Richard Quickhocytes/100 WBC (Bld)15.0 %Critically low20.5-60.0The [facility] HospitalComment on above:Performed By: #### BMP #### [facility] [address] [place] [address] Dr. Richard LeosUAL DIFF REQNONormalThe [facility] HospitalComment on above: Performed By: #### BMP #### [facility] [address] [place] [address] Dr. Richard Dueñas (RBC) [Entitic mass]31.4 kkXxhmhh65.9-34.0The [facility] HospitalComment on above:Performed By: #### BMP #### [facility] [address] [place] [address] Dr. Richard Dueñas (RBC) [Mass/Vol]34.4 g/uMAsnfft92.9-35.2The [facility] HospitalComment on above:Performed By: #### BMP #### [facility] [address] [place] [address] Dr. Richard DueñasV (RBC) [Entitic vol]91.3 qVEjcyqf16.0-94.0The [facility] HospitalComment on above:Performed By: #### BMP #### [facility] [address] [place] [address] Dr. Richard Hinojosa #0.4 103/ulNormal0.3-0.8The [facility] HospitalComment on above:Performed By: #### BMP #### [facility] [address] [address] [address] Richard Lynneocytes/100 WBC (Bld)6.4 %Normal1.7-12.0[facility] Comment on above:Performed By: #### BMP #### [facility] [address] [place] [address] Dr. Richard Farley #4.9 103/ulNormal1.4-6.5The [facility] HospitalComment on above:Performed By: #### BMP #### [facility] [address] [place] [address] Dr. Richard Sanchezutrophils/100 WBC (Bld)77.9 %Critically high43.0-75.0The [facility] HospitalComment on above:Performed By: #### BMP #### [facility] [address] [place] [address] Dr. Richard Riveralet mean volume (Bld) [Entitic vol]9.9 fLNormal9.5-13.5The [facility] HospitalComment on above:Performed By: #### BMP #### [facility] [address] [place] [address] Dr. Richard LinaresPLT208 103/zaIyxvmz362-241Kai [facility] HospitalComment on above: Performed By: #### BMP #### [facility] [address] [place] [address] Dr. Richard LinaresRBC4.58 106/ulCritically low4.70-6.10The [facility] HospitalComment on above:Performed By: #### BMP #### [facility] [address] [place] [address] Dr. Richard LinaresWBC6.3 103/ulNormal4.0-11.0The [facility] HospitalComment on above: Performed By: #### BMP #### [facility] [address] [place] [address] Dr. Richard LinaresCovid-19 PCR ([facility]VDADDISON [facility])on 82-30-5561JCHI-CoV-2 (COVID-19) RNA MOLLY+probe Ql (Unsp spec)Not detectedNormalNOT DETECTEDThe [facility] Comment on above:Result Comment: This test is not yet approved or cleared by the [place] FDA. When there are no FDA-approved or cleared tests available, and other criteria are met, FDA can make tests available under an emergency access mechanism called an Emergency Use Authorization (EUA). The EUA for this test is supported by the [place] of Health and Human Service's (HHS's) declaration [...] consistent with SARS-CoV-2.Performed By: #### CVDTBH #### [facility] [address] [place] [address] Dr. Richard LinaresPROF 14(COMP METB)on 70-29-2189Acnxwqu [Mass/Vol]3.6 g/dLNormal 3.5-5.0The [facility] HospitalComment on above:Performed By: #### LUBNA HSTROPN #### [facility] [address] [place] [address] Dr. Richard LinaresAlbumin/Globulin [Mass ratio]1.3 {ratio}NormalThe [facility] Community HospitalComment on above:Performed By: #### LUBNA HSTROPN #### [facility] [address] [address] [address] Richard SingletaryP [Catalytic activity/Vol]65 U/PEpwtpn28-966Nhy [facility] HospitalComment on above:Performed By: #### CMP, HSTROPN #### [facility] [address] [place] [address] Dr. Richard SingletaryT [Catalytic activity/Vol]12 U/LCritically any81-05Fze [facility] HospitalComment on above:Performed By: #### CMP, HSTROPN #### [facility] [address] [place] [address] Dr. Richard Penaon gap [Moles/Vol]10.1 mmol/LNormalThe [facility] Comment on above:Performed By: #### CMP, HSTROPN #### [facility] [address] [place] [address] Dr. Richard LinaresAST [Catalytic activity/Vol]8 U/LCritically ccw05-68Hyp [facility] HospitalComment on above:Performed By: #### CMP, HSTROPN #### [facility] [address] [place] [address] Dr. Richard LinaresBilirubin [Mass/Vol]0.6 mg/dLNormal0.2-1.3TThe [facility] Comment on above:Performed By: #### CMP, HSTROPN #### [facility] [address] [place] [address] Dr. Richard LinaresCalcium [Mass/Vol]8.3 mg/dLCritically low8.4-10.2The [facility] HospitalComment on above:Performed By: #### CMP, HSTROPN #### [facility] [address] [place] [address] Dr. Richard LinaresChloride [Moles/Vol]106 mmol/YBgkdve57-532Obb [facility] Comment on above:Performed By: #### CMP, HSTROPN #### [facility] [address] [place] [address] Dr. Richard LinaresCO2 [Moles/Vol]29.4 mmol/NOthjff72.0-30.0The [facility] Comment on above:Performed By: #### CMP, HSTROPN #### [facility] [address] [address] [address] Richard LinaresCreatinine [Mass/Vol]0.73 mg/dLNormal0.66-1.25The [facility] HospitalComment on above:Performed By: #### CMP, HSTROPN #### [facility] [address] [address] [address] Richard PaceGFR-AF CITIZEN OF [place]>60Normal>=60The [facility] Community HospitalComment on above:Performed By: #### CMP, HSTROPN #### [facility] [address] [place] [address] Dr. Richard Stephen-NON AF CITIZEN OF [place]>60Normal>=60The [facility] HospitalComment on above:Performed By: #### CMP, HSTROPN #### [facility] [address] [place] [address] Dr. Richard LinaresGlobulin (S) [Mass/Vol]2.8 g/dLNormalThe [facility] HospitalComment on above:Performed By: #### CMP, HSTROPN #### [facility] [address] [place] [address] Dr. Richard LinaresGlucose [Mass/Vol]133 mg/dLCritically epbp06-648Jlq [facility] HospitalComment on above:Performed By: #### CMP, HSTROPN #### [facility] [address] [place] [address] Dr. Richard LinaresPotassium [Moles/Vol]3.5 mmol/LNormal3.4-5.0[facility] Comment on above:Performed By: #### CMP, HSTROPN #### [facility] [address] [place] [address] Dr. Richard LinaresProtein [Mass/Vol]6.4 g/dLNormal6.1-8.2[facility] Comment on above:Performed By: #### CMP, HSTROPN #### [facility] [address] [place] [address] Dr. Richard LinaresSodium [Moles/Vol]142 mmol/KMzubgl201-289Deo [facility] Comment on above:Performed By: #### CMP, HSTROPN #### [facility] [address] [place] [address] Dr. Richard Mackay nitrogen [Mass/Vol]9.0 mg/dLNormal9.0-20.0The [facility] HospitalComment on above:Performed By: #### CMP, HSTROPN #### [facility] [address] [place] [address] Dr. Richard LinaresUrea nitrogen/Creatinine [Mass ratio]12.3 mg/mgNormalThe [facility] HospitalComment on above:Performed By: #### CMP, HSTROPN #### [facility] [address] [place] [address] Dr. Richard Villa, HIGH SENSITIVITYon 34-36-7693ZTMGGJ9.9 pg/mLNormal 4.0-42.2The [facility] HospitalComment on above:Result Comment: CUT-OFF POINTS HAVE BEEN ESTABLISHED BASED ON THE FOURTH UNIVERSAL DEFINITIONS OF MYOCARDIAL INFARCTION. THE UPPER REFERENCE LIMIT (URL) OF TROPONIN, DEFINED THE 99TH PERCENTILE OF cTnI DISTRIBUTION IN A REFERENCE POPULATION, HAS BEEN CONFIRMED THE DECISION THRESHOLD FOR RI DIAGNOSIS.Performed By: #### HSTROPN #### [facility] [address] [place] [address] Dr. Richard LinaresHSTROP6.0 pg/mLNormal4.0-42.2The [facility] HospitalComascension macomb on above:Result Comment: CUT-OFF POINTS HAVE BEEN ESTABLISHED BASED ON THE FOURTH UNIVERSAL DEFINITIONS OF MYOCARDIAL INFARCTION. THE UPPER REFERENCE LIMIT (URL) OF TROPONIN, DEFINED THE 99TH PERCENTILE OF cTnI DISTRIBUTION IN A REFERENCE POPULATION, HAS BEEN CONFIRMED THE DECISION THRESHOLD FOR RI DIAGNOSIS.Performed By: #### CMP, HSTROPN #### [facility] [address] [place] [address] Dr. Richard LinaresXR CHEST 1 Von 17-18-9991ZD CHEST 1 VEXAMINATION: XR CHEST 1 V [...] Electronically authenticated by: ARMANDO ZULETA Date: 2021-10-12 19:22[facility] Vital Signs Date TimeVital SignValuePerforming JebziafwhYbxdhnit59-62-1330 14:26-0400Body mkkfpi835.3 cmFredric Itzkowitz DO Work Phone: [facility] SystemDnnibgegtx11-06-3081 14:26-0400Body mass index (BMI) [Ratio]22.18 kg/n3Mxwwwfp Itzkowitz DO Work Phone: [facility] SystemXymgvdrjje18-00-3972 14:26-0400Body .12 kgFredric Itzkowitz DO Work Phone: [facility] SystemGuuczbirow54-13-1814 15:44-0400Body ambnbj563.3 cmFredric Itzkowitz DO Work Phone: [phone] SystemKsebyzkqvh23-45-9089 15:44-0400Body mass index (BMI) [Ratio]22.18 kg/d5Kwfesvl Itzkowitz DO Work Phone: [facility] SystemEjbfjihran06-31-2575 15:44-0400Body koviir79.12 kgFredric Itzkowitz DO Work Phone: [phone] SystemFblkmmqaka38-34-0553 15:44-0400Diastolic blood sfanwjzi03 mm[Hg]Carri Itzkowitz DO Work Phone: [phone] SystemVgcbihqhzk37-22-4491 15:44-0400Systolic blood janafnii43 mm[Hg]Carri Itzkowitz DO Work Phone: [facility] SystemOxtjlqsryz77-30-9785 14:14-0400Blood Pressure LocationMichael NILL 025-2700Ozryqr-Tnkqw [facility] [place] 05-14-2024 14:14-0400Diastolic blood xutmnkyh08 mm[Hg]Benji MCCULLOUGH 181-9932Dcddrb-ZattuUc [facility] [place] 05-14-2024 14:14-0400Heart rate72 /minMichael NILL [phone]-DyzfkUc [facility] [place] 05-14-2024 14:14-0400Respiratory rate16 /minMichael NILL 321-1146Qjlgnq-VvhriUc [facility] [place] 05-14-2024 14:14-0400Systolic blood mm[Hg]Benji MCCULLOUGH [phone]-TnpltAshtabula County Medical Center 05-13-2022 10:53-0400Body .88 cmKiana Bansal Work Phone: [phone]-Nuqxzprvyk-[place] [address] Work Phone: [phone] 160-417909-08-2022 10:53-0400Body mass index (BMI) [Ratio] 22.92 kg/m2Bandarana Bansal Work Phone: [phone]-Pyufrfirbz-[place] [address] Work Phone: [phone] 10:53-0400Body surface area Derived from formula1.98 m2Bandarana Galilea Bansal Work Phone: [phone]-Vteyzfnssx-[place] [address] Work Phone: [phone] 10:53-0400Body oogphxefcci87.1 [degF]Eloy Calero Bansal Work Phone: [phone]-Giudmvhhou-[place] [address] Work Phone: [phone] 10:53-0400Body ohiegc85.66 kgKiana Galilea Bansal Work Phone: [phone]-Emkmmeescd-[place] [address] Work Phone: [phone] 462-299809-08-2022 10:53-0400Diastolic blood zkydvdrg21 mm[Hg] Eloy Galilea Bansal Work Phone: mg628-5029VI-Ziwakkhvnq-[place] [address] Work Phone: 1(369) 283-123609-08-2022 10:53-0400Heart wwde946 /minKim Galilea Bansal Work Phone: mg008-2485RN-Kfnqtkblut-[place] [address] Work Phone: [phone] 340-848109-08-2022 10:53-0400Respiratory rate16 /minKim Galilea Bansal Work Phone: mg153-5265GW-Wipiqjdxuc-[place] [address] Work Phone: [phone] 10:53-9350LyF4% (BldA) [Mass fraction]94 % Eloy Galilea Bansal Work Phone: [phone]-Jsjnqsjtis-[place] [address] Work Phone: [phone]) [phone] 10:53-0400Systolic blood oxxpwqxt748 mm[Hg] Eloy Galilea Bansal Work Phone: [phone]-Ymzypdjplj-[place] [address] Work Phone: Encounters Encounter DateEncounter TypeCare ProviderFacilityStart: 03-11-2025 End: 58-57-4969dxbllsjvixEFBOUGT H ITZKOWITZNot AvailableStart: 03-11-2025 End: 97-84-0863Mvombw outpatient visit 15 minutesFredric H Itzkowitz DO Work Phone: noms ST GENSComment on above:Thrombosed external hemorrhoid (Primary Dx)Start: 03-04-2025 End: 68-44-2061jaxwtpzwqxCLIVJBA H ITZKOWITZNot AvailableStart: 03-04-2025 End: 17-60-1758Xkokce outpatient new 45 minutesFredric H Itzkowitz DO Work Phone: noms ST GENSComment on above:Thrombosed external hemorrhoidStart: 02-26-2025 End: 31-19-6879tfgaydcazdPFX Jailyn Seymour SchwabFacility:FT FM BellevueStart: 01-30-2025 End: 20-66-2036vieidckogrESR Jodi L SchwabFacility:FT BellevueStart: 11-30-2024 End: 46-13-9108cwfvcdxhqxMLOAIX MOCleveland [facility] Start: 08-22-2024 End: 88-25-0097ixqszxxedfTQMMAVLSelect Medical TriHealth Rehabilitation Hospitaltart: 08-10-2024 End: 88-67-3608skuvzqcxwxNRLRZTVSelect Medical TriHealth Rehabilitation Hospitaltart: 07-03-2024 End: 94-52-3658Miyr/qhp telephone evaluation 07-25 [facility] Work Phone: [facility] HospitalComment on above: Centrilobular emphysema (Multi) (Primary Dx); Lung noduleStart: 90-74-2982betreirpitYWTTRWJCleveland Clinic Marymount Hospitaltart: 06-26-2024 End: 37-68-4455cphfxdfhitZNRJRKZSelect Medical TriHealth Rehabilitation Hospitaltart: 06-25-2024 End: 44-69-7585ricisinpvjZIGXIKUSelect Medical TriHealth Rehabilitation Hospitaltart: 05-23-2024 End: 39-40-2683rcpkrjbsxtIODKSJQFayette County Memorial Hospitaltart: 05-23-2024 End: 57-39-4398Tiunfxdgm for other preprocedural examinationMarymount Hospitaltart: 05-17-2024 End: 89-27-9534rwuermyqimMVG Jodi L SchwabFacility:FT BellevueStart: 05-14-2024 End: 43-00-7750pqmyzxzsmzNXC Jodi L SchwabFacility: Farooqtart: 05-14-2024 End: 39-43-5574Aqmhvur encounter procedureMichael R NILL [phone]-Vbizb [facility] [place] Start: 89-15-0574vnlpyshcjzPZO Jailyn SchwabFacility:GS NorbibianakStart: 28-12-6819kgaswdbllvUOX Jailyn SchwabFacility:GS BellevueStart: 04-19-2024 End: 54-07-1442myfobqobhyFFU Jailyn Seymour SchwabFacility:[facility] BellevueStart: 07-12-2023 End: 50-05-4005Vtjj/qhp telephone evaluation 07-25 Franci Alvarez [facility] Work Phone: [facility] HospitalComment on above: Cigarette nicotine dependence with nicotine-induced disorder (Primary Dx); Chronic respiratory failure with hypoxia, on home O2 therapy (CMS/HCC); Centrilobular emphysema (CMS/HCC); Lung noduleStart: 07-12-2023 End: 96-24-6764dkvdldiizqQPKWVFBUniversity Hospitals Parma Medical Centertart: 81-25-5345Skmgnxu encounter Mendy Bansal Work Phone: mg-[facility] Work Phone: Start: 18-71-2582Ysio/qhp telephone evaluation 07-25 Alfonzo Bansal Work Phone: mg-CT Surgery-[facility] [address] Work Phone: Start: 95-80-3452rfebbeyvtyAsNancy Bansal Facility:UHCStart: 09-22-2022 End: 57-87-4116jxggnwcdwrPQ KIM E KNIGHTFacility:E2Jryhn: 06-28-2022 End: 69-94-4346trwsvyzdyaPOMD Eduardo MasFacility:9537Start: 06-09-2022 End: 87-16-0709jgsbvagdnuZK KIM E KNIGHTFacility:Z8Mrlbm: 05-21-2022 End: 74-92-4982edfucalkstZO KIM E KNIGHTFacility:X4Ruvzd: 88-65-6910rhtfrefxnu Dr. Celso SchafferiFacility:9520Start: 79-03-8427Njzvsw outpatient new 45 minutesEloy Bansal Work Phone: mg-CT Surgery-[place] Work Phone: Start: 20-52-8159Qgaewws encounter procedureEloy Bansal Work Phone: [phone]-Xgjzhamobp-[place] [address] Work Phone: Start: 04-13-2022 End: 59-24-5736smesznikjvRS KIM E KNIGHTFacility:G8Kodmp: 04-10-2022 End: 28-87-0195dqpppztukeQB ELOY BANSALFacility:H8Btorj: 03-24-2022 End: 67-04-5887dzvnzwouggVNVOLDW BOESFacility:O0Qtjby: 02-19-2022 End: 61-40-3972cgeimdzwslYLWBMRO BOESFacility:B3Hmivp: 12-21-2021 End: 89-81-4763chhqmuwgyqVSPHHII Ana BOESFacility:UTMCStart: 12-18-2021 End: 41-25-6645apjbhtpgqcENEWRPS BOESFacility:W3Ridks: 11-27-2021 End: 67-53-4829qwjlikkvqpSTBGTOK BOESFacility:X4Rptno: 11-09-2021 End: 68-15-4103karzkzpmiyOK ELOY BANSALFacility:H7Dwxxl: 10-26-2021 End: 79-39-3455fzcigdllakNG KIM E KNIGHTFacility:O8Nlphi: 10-12-2021 End: 84-25-6471uigydfmyodPK KIM E KNIGHTFacility:H1 Procedures DateProcedureProcedure DetailPerforming ClinicianArthroscopy of Dominique Bansal Work Phone: Comment on above:Right;Arthroscopy of kneeMichael NILL Biopsy of lungMichael NILL Cardiac catheterizationMichael NILL Excision of Villalobos's cyst of kneeMichael NILL Excision of cystKim Galilea Bansal Work Phone: Comment on above:R knee;Repair of meniscusMichael NILL Plan of Treatment DateCare ActivityDetailAuthorStart: 03-11-2025 End: 79-91-0218Ejgnbjf encounter rqlzgejjw99/07/2025 2:15 PM EDT Office Visit LACHELLE MALONEY [address] [facility] [address] [place] [address] Carri Mckeon, DO [address] [facility] [address] [place] [address] NOMMeliton SEARS GENSStart: 07-03-2024 End: 04-57-3651Gyojwlwmmixy consultation with juphxak6007/03/2024 12:00 PM EDT Telemedicine [facility] [address] [place] [id number] [place] [address] [place] [address] [facility] Hospitaltart: 29-25-2755LJVEU-19 Vaccine ( season)COVID-19 Vaccine ( season)[facility] CenterStdallas: 05-06-2024 Influenza vaccinationInfluenza Vaccine (#1)[facility] Start: 94-67-7952Fzjurnzbp vaccinationInfluenza Vaccine (#1)[facility]: 39-08-6950MDM High Risk: (Elderly (60+) or Population) (1 - Risk 60-74 years 1-dose series)RSV High Risk: (Elderly (60+) or Population) (1 - Risk 60-74 years 1-dose series)[facility]: 98-98-2296Jttypr Vaccines (1 of 2)Zoster Vaccines (1 of 2) [facility]: 26-25-6658GAyA/Tdap/Td Vaccines (1 - Tdap)DTaP/Tdap/Td Vaccines (1 - Tdap)[facility]: 87-19-2014Lymdowaof A Vaccines (1 of 2 - Risk 2-dose series)Hepatitis A Vaccines (1 of 2 - Risk 2-dose series)[facility]: 1978 Diabetes mellitus screeningDiabetes ScreeningMercy Health [facility] Medical Center Start: 94-43-6455Eqdukxbin C screeningHepatitis C ScreeningUnKettering Health Hamilton: 15-71-3771Fuwgaepkbxrm Vaccine: Pediatrics (0 to 5 Years) and At-Risk Patients (6 to 64 Years) (1 - PCV)Pneumococcal Vaccine: Pediatrics (0 to 5 Years) and At-Risk Patients (6 to 64 Years) (1 - PCV)[facility]: 86-61-5749Ltjcelrkjgah Vaccine: Pediatrics (0 to 5 Years) and At-Risk Patients (6 to 64 Years) (1 of 2 - PCV)Pneumococcal Vaccine: Pediatrics (0 to 5 Years) and At-Risk Patients (6 to 64 Years) (1 of 2 - PCV)[facility]: 09-58-4630ZYF Vaccines (1 of 1 - Standard series) MMR Vaccines (1 of 1 - Standard series)[facility]: 80-98-9654VFUDS-19 Vaccine (#1)COVID-19 Vaccine (#1)[facility]: 04-17-9187Mfznshrseg measurementCreatinine LevelSt. Francis Hospital: 39-54-2030KdeilcmkumvfbysyFxbaetuxggeefyCjslmhfmig [facility] ClevelandStart: 48-50-8865GRT screeningHIV ScreeningSt. Francis Hospital: 77-06-7350Rdjwr panelLipid PanelUnKettering Health Hamilton: 45-81-3513Diowccapc measurementPotassium Level [facility]: 18-86-2139Phelurwgc for malignant neoplasm of colonUnKettering Health Hamilton: 54-85-6445Lnpvixu stimulating hormone measurementTSH LevelUnKettering Health Hamilton: 59-50-1787Bcshdi Adult PhysicalYearly Adult PhysicalUnReg[facility] Payers DatePayer CategoryPayerPolicy [id number] Health InsuranceSTURGIS HOSPITALSOCIMARR[facility] MEDICAID [id number] 2016Medicaid (Managed Care) [employer] [id number] [id number] 2.0.1.763162.3.579.2.647 [id number] 2.0.1.959415.3.579.2.574064-02-4419Bieznih [id number] 2.160.1.326247.3.57[id number] 2.16840.1.771077.3.57[id number] 2.0.1.599653.3.57[id number] 2.16.840.1.242976.3.57[id number] 2.16.840.1.790137.3.57[id number] 2.16.840.1.974436.3.57[id number] 2.16.840.1.968137.3.579.2.18110-50-0461Gtqhbob6200872 2.16.840.1.833692.3.579.2.93426-27-0153Ujbubvr1708420 2.16.840.1.144904.3.579.2.24982-21-9258Bvtymyp4014169 2.840.1.715461.3.579.2.06850-27-1862Esbrvxt4117312 2.840.1.355501.3.579.2.09820-59-8359Atavmcg5616945 2.16.840.1.306022.3.57[id number] 2.840.1.676398.3.57[id number] 2.840.1.858337.3.579.[id number] 2.16.840.1.359414.3.579.2.[id number] 2.16840.1.448542.3.57[id number] 2.16.840.1.122120.3.579.[id number] 2.16.840.1.515342.3.579.2.4[id number] 2.16.840.1.053847.3.579.[id number] 2.16.840.1.516094.3.579.[id number] 2.16.840.1.208655.3.579.[id number] 2.16.840.1.801921.3.579.[id number] 2.16.840.1.395301.3.57[id number] 2.16.840.1.135199.3.579.[id number] 2.16.840.1.783822.3.579.2.639524-21-2980Ocwa-rmp19897851366-05-1941Jhaymky [id number] Social History DateTypeDetailFacilityStart: 07-07-2023 End: 21-91-1389Bvsebrr smokerCurrent qhjhdaEA-Jqhclvvlfw-Attxkh 101 Work Phone: Comment on above:2 ppd X 44 yrs, currently 4 cig day(2021);Start: 07-07-2023 End: 01-75-1631Wmbcygl smoking status NHISSmokes tobacco dailyUnRegency Hospital [facility] East Work Phone: History of tobacco useCigarette SmokerUnRegency Hospital [facility] Work Phone: Start: 07-07-2023 End: 41-38-8859Amlaspp use panelJoint Township District Memorial Hospitaltart: 1960 Sex Assigned At BirthNot on fileUnRegency Hospital [facility] East Work Phone: Start: 07-02-2023 End: 72-49-2590Mmqucsww to SARS-CoV-2 (event)Not sureMercy Health Springfield Regional Medical CenterStart: 01-35-2340Txrznhf smoking statusLight tobacco smoker (finding) [facility] TownshipkTobacco smoking statusNever [facility] Hospitaltart: 06-23-2024 End: 85-45-0251Uyfkpzse to SARS-CoV-2 (event)Unable to assessMercy Health Springfield Regional Medical Center Work Phone: Start: 04-98-3949Mgassnk use and exposureSmokeless tobacco non-userNOMS HealthcareStart: 03-04-2025 End: 81-31-5451Apwlxfyaw beverage intakeEx-drinker (finding)[facility] Functional Status RpbnGzfjklkoxqEboewlNvxzrmjy08-52-1787Kqqyaoovfn StatusN/AFTwin [facility] Hospital Clinical Notes 03-05-2021 to 03-11-2025 Note Date & AxftMuebJyucdxzd17-01-6941 History of Present illness Narrative* Carri Mckeon [...] and see him PRN. documented in this encounterNOSamaritan HospitalHanunsmrti81-44-6404 History of Present illness Narrative* Carri Mckeon, [...] next week for recheck documented in this encounterSaint John's Health SystemCzdfmwbcha77-30-8811 NoteUT Cardiology - [facility] Subjective Mike Lopez is a [...] heart failure (CMS/HCC) Coronary artery disease involving grand ronde tribes coronary artery of grand ronde tribes heart without angina pectoris Impotence Chronic obstructive [...] Yes Types: Marijuana Comment: last use 08/08 [facility] Mike is seen for 6 month [...] , Rfl: sacubitril-valsartan (E (more content not included)...[facility]12-18-2024 NoteSubjective Patient ID: Mike Lopez is a [...] the past 36 hour(s)). No follow-ups on file.[facility]12-06-2024 NoteVM with call back number given.[facility]12-06-2024 Note Patient: Mike Lopez Procedure Summary Date: 08/10/24 Room / Location: [facility] 01 / [facility] Operating Room Anesthesia Start: 1351 Anesthesia [...] were no known notable events for this encounter.[facility]12-06-2024 NoteAirway Date/Time: 08/10/2024 1:59 PM Urgency: elective Airway not difficult General Information and Staff Patient location during procedure: OR Anesthesiologist: Freeman Ramirez MD Resident/PHYSICS INSTRUCTOR/CAA: JONN Mclaughlin Performed: resident/PHYSICS INSTRUCTOR/CAA Indications and Patient Condition Indications for airway [...] approach: 1 Number of other approaches attempted: 0UnMagruder Memorial Hospital 08-10-2024 NotePatient: Mike Lopez Procedure Information Date/Time: 08/10/24 1430 Procedure: LAPAROSCOPIC CHOLECYSTECTOMY WITH INTRAOPERATIVE CHOLANGIOGRAM Location: [facility] 01 / [facility] Operating Room Surgeons: Denice Moreno MD Relevant Problems Cardio (+) Chronic systolic congestive heart failure (CMS/HCC) (+) Coronary artery disease involving grand ronde tribes coronary artery of grand ronde tribes heart without angina pectoris Endo (+) Hypothyroidism Pulmonary (+) Centrilobular emphysema (CMS/HCC) (+) Chronic obstructive lung disease (CMS/HCC) Expand All Collapse All [place] [facility] - [facility] Subjective Mike Lopez is a [...] heart failure (CMS/HCC) Coronary artery disease involving grand ronde tribes coronary artery of grand ronde tribes heart without angina pectoris Impotence Chronic obstructive [...] products. Plan discussed with CAA. Additional Equipment RequestsMedina Hospital12-06-2024 Note Relevant Hx: CAD, CHF Course: stable, controlled Daily Update: none Today's Plan: Laparoscopic cholecystectomy, possible cholangiogram Orders from past 72 hours: Full Code; Standing ceFAZolin in dextrose (iso-os) (Ancef) IVPB 2 g Full CodeMedina Hospital10-29-2024 History of Present illness Narrative* Celso Ibarra, [...] OSH). Followed by Dr. Nuñez, Pulmonology, at [place]. Patient denies any significant change in his [...] discussion of perhaps a cardiomyopathy. No h/o RI.Patient had a prior drinking history many years [...] Results: Pathology: N/A Imagin06/12/24 CT Chest from [facility] was personally reviewed Assessment/Plan Diagnoses and all orders for this visit: Centrilobular emphysema (Multi) Lung nodule Mike Lopez is a 63 y.o. male with a significant history of COPD, moderate to severe, who presents with a lateral left upper lobe 1.[address] guided bx was non-diagnostic in June 2022. Onrecent CT from [place] lesions are stable. Plan for repeat CT chest in [address] Nuñez will order this and have it done at [place]. Celso Ibarra DO Thoracic & Esophageal Surgery documented in this [facility] Work Phone: 1(659) 796-476110-22-2024 NoteSubjective Patient ID: Mike Lopez is a 63 y.o. male who presents for Consult (Mike is here today for consult: Calculus of gallbladder, S/P CT abdomin and pelvis ). HPI 63 years old white male is complaining of right upper quadrant pain since 2000. Patient has COPD, chronic systolic congestive heart failure, coronary artery disease. He was referred to [facility] for symptomatic cholelithiasis. Review of Systems Constitutional: [...] the past 36 hour(s)). No follow-ups on file.[facility]09-18-2024 Note Cardiovascular Medicine [place] [facility] SUBJECTIVE Chief Complaint Patient presents with [...] heart failure (CMS/HCC) Coronary artery disease involving grand ronde tribes coronary artery of grand ronde tribes heart without angina pectoris Impotence Chronic obstructive [...] Final Atrial Rate 12/21/2021 93 BPM Final WA Interval 12/21/2021 140 ms Final QRS DURATION 12/21/2021 90 ms Final QT Interval 12/21/2021 330 ms Final QTC CALCULATION(BAZETT) 12/21/2021 410 ms Final P Kulm 12/21/2021 72 degrees Final R-Kulm 12/21/2021 76 degrees Final T Wave Kulm 12/21/2021 57 degrees Final Diagnosis 12/21/2021 Final Value:Normal sinus rhythm Normal ECG No previous ECGs available Confirmed by Randolph Chandra (80) on 12/22/2021 8:48:12 AM Blood testing 04/21/2023: Potassium 4.4, BUN 11, creatinine 0.85, LFTs normal, cholesterol 112, HDL 45, triglycerides 44, LDL 58, hemoglobin 14.8, platelets 213. labs- 02/19/22 BUN 11, CR 1.00- nor (more content not included)...[facility]09-18-2024 NotePt here for follow up on chronic systolic heart failure, CAD, COPD. Denies chest pain, SOB palpitations or edema Review of Systems Neurological: Positive for dizziness.[facility] 05-14-2024 NoteGeneral Surgery Office/Clinic Note Chief Complaint [...] abd pain and cholelithiasis; patient seen at [facility] 2 months ago for several [...] no NSAID use; smokes daily. patient sees Controls Technician yearly, [facility] at [facility], reported for heart failure; and Psychology Tech, Dr Nuñez; he reports recent appointment; smokes [...] dysfunction Hyperlipidemia Hypertension Overweight (more content not included)...[facility] HospitalComment on above:Result Comment: Electronically Signed By: JAMEL TRINIDAD, Benji Patricia\Date and Time Signed: 05/14/24 16:10 [id number] History of Present illness Narrative* Celso Ibarra, [...] discussion of perhaps a cardiomyopathy. No h/o RI.Patient had a prior drinking history many years [...] order this and have it done at [place]. Celso Ibarra DO Thoracic & Esophageal Surgery documented in this [facility] Work Phone: 1(986) 340-817110-01-2022 History of Present illness Narrative* Mr. Lopez [...] discussion of perhaps a cardiomyopathy. No h/o RI. Patient had a prior drinking history many years ago. * Current smoker, several cigarettes per day down from 2 packs/day. [facility] [address] Work Phone: 1(158) 562-390107-01-2021 History of Present illness Narrative* Mr. Lopez [...] somediscussion of perhaps a cardiomyopathy. No h/o RI. Patient had a prior drinking history many years ago. Current smoker, several cigarettes per day down from 2 packs/day. [facility] Work Phone: Evaluation + Plan note Future Appointments Appointment Date:05/17/2024 02:40:00 PM Scheduled Provider:Jailyn Blanc Location:[facility] Appointment Type: Open General Surgery [place] Evaluation note* Diagnosis Cigarette nicotine dependence with nicotine-induced disorder- Primary Chronic respiratory failure with hypoxia, on home O2 therapy (CMS/HCC) Centrilobular emphysema (CMS/HCC) Lung nodule Other diseases of lung, not elsewhere classified documented in this encounter [facility] Work Phone: Evaluation note* Diagnosis Centrilobular emphysema (Multi)- Primary Lung nodule Other diseases of lung, not elsewhere classified documented in this encounter [facility] Work Phone: Evaluation note* Diagnosis Thrombosed external hemorrhoid External thrombosed hemorrhoids documented in this encounter [facility] HealthcareEvaluation note* Diagnosis Thrombosed external hemorrhoid- Primary External thrombosed hemorrhoids documented in this encounter [facility] HealthcareHospital course Narrative No data available for this section General Surgery [facility] Discharge instructions No data available for this section General Surgery [facility] Progress note No data available for this section General Surgery [place] Summary Purpose Family History No Family History [...] section and content) DATE CREATED AUTHOR 12/16/2021 [facility] DATE CREATED AUTHOR AUTHOR'S ORGANIZ ATION 12/28/2021 [facility] DATE CREATED AUTHOR AUTHOR'S ORGANIZ ATION 06/06/2022 [facility] DATE CREATED AUTHOR AUTHOR'S ORGANIZ ATION 07/02/2022 [facility] DATE CREATED AUTHOR AUTHOR'S ORGANIZ ATION 09/28/2022 [facility] DATE CREATED AUTHOR AUTHOR'S ORGANIZ ATION 04/15/2023 [facility] DATE CREATED AUTHOR AUTHOR'S ORGANIZ ATION 05/04/2023 [facility] DATE CREATED AUTHOR AUTHOR'S ORGANIZ ATION 07/09/2024 [facility] DATE CREATED AUTHOR AUTHOR'S ORGANIZ ATION 02/27/2025 [facility] DATE CREATED AUTHOR AUTHOR'S ORGANIZ ATION 03/15/2025 [facility] DATE CREATED AUTHOR AUTHOR'S ORGANIZ ATION 03/17/2025 [facility] Care Teams (unrecognized sec tion and content) Team MemberRelationshipSpecialtyStart DateEnd Date Eloy Bansal MD [address] [facility] Eloy [place] [address] PCP - General05/13/22Team MemberRelationshipSpecialtyStart DateEnd Date Eloy Bansal MD [address] [facility] [place] [address] PCP - General05/13/22Team MemberRelationshipSpecialtyStart DateEnd [facility] Eloy Bansal MD [address] [place] [phone] PCP - GeneralFamily Medicine03/04/25Team MemberRelationshipSpecialtyStart DateEnd [facility] Eloy Bansal MD [address] [place] [address] PCP - GeneralFami Medicine03/04/25 Reason for Visit (unrecogniz ed section and content) ReasonCommentsPossible thrombosed hemorrhoidSpecialtyDiagnoses / Procedures Referred By ContactReferred To ContactGeneral Surgery Diagnoses Thrombosed external hemorrhoid Procedures [place] OFFICE/OUTPATIENT [facility] 60 MINUTES Jailyn Douglas, MARYANNE [address] [place] [address] Phone: tel: fax: [facility] [address] [address] Phone: tel: fax: Referral IDStatusReasonStart DateExpiration DateVisits RequestedVisits [id number] Specialty Services Required [id number] up Exc. of thrombosed hemorrhoid in office [...] BE BASED ON THE PRIMARY CLINICAL RECORDS. [facility]. provides no warranty or guarantee of the accuracy or completeness of information in this document.
--- OUTSIDE RECORDS SUMMARY | 2025-09-01 18:23 | XMS_ITS | Clinical Summary ---
Author Organization [facility] tem Address [id number] [address] [place] [address] Care Team Providers Care Enterprise Applications Manager Name Role Phone Mel Bansal MD Primary Care Provider [phone] Allergies No known active allergies Medications MedicationSigDispense [...] standard drink = 0.6 oz pure alcohol)ChildcareAnswerDate DzuqccszCiqdarrcoVbubjuq13/12/2019Employment AnswerDate EalsulkuZydkkkeecdUqtvmfq24/12/2019Sex and Gender InformationValue Date RecordedSex Assigned at BirthNot on fileLegal CqqUjxu6304/10/2015 12:06 PM EDTGender IdentityNot on fileSexual OrientationNot on file Last Filed Vital Signs Vital SignReadingTime TakenCommentsBlood Snutktgt691/6007/20/2021 3:08 PM EST Pulse--Pierbosocam53.3 ??C (97.3 ??F)07/20/2021 3:08 PM ESTRespiratory Rate-- Oxygen Saturation--Inhaled Oxygen Concentration--Jtjbeq29.9 kg (169 lb 9.6 oz) 07/20/2021 3:08 PM YREIcfrag516.9 cm (6')07/20/2021 3:08 PM ESTBody Mass Index23 07/20/2021 3:08 PM EST Plan of Treatment Health MaintenanceDue DateLast DoneCommentsDepression Zwdixnlzy59/05/1973Tobacco Qnylbqlsv99/05/1973Adult BMI Ppjbjmbat40/05/1979DTaP,Tdap and Td Vaccines (1 - Tdap)11/08/1979Zoster (Shingles) Vaccine (1 of 2)2010Influenza Vaccine 05/06/2025RSV ( or age 60+ yrs) (1 - 1-dose 75+ series)11/08/2035 [employer] Not on file Insurance Care Teams Team MemberRelationshipSpecialtyStart DateEnd Mel Bansal MD PCP - GeneralFamily Medicine05/08/21
--- OUTSIDE RECORDS SUMMARY | 2025-09-01 18:23 | XMS_ITS | Clinical Summary ---
Author Organization [facility] Address [address] [place] [address] Phone Care Team Providers Care Building Maintenance Technician Name Role Phone Mel Bansal MD Primary Care Provider [phone] Allergies No known active allergies Medications MedicationSigDispense [...] ProblemNoted DateDiagnosed DateCAD (coronary artery disease)07/10/2023 Centrilobular aytjiutnx18/05/2023holelithiasis without scrhbrolzldew82/05/2023 Chronic respiratory failure with hypoxia, on home O2 nneuwid2907/10/2023igarette nicotine dependence with nicotine-induced lrrsxwem07/05/2023Hypothyroid 07/10/2023Lung zmatpx6507/10/2023Overt chronic systolic congestive heart failure 07/10/2023Rhinitis, houtdwkp63/05/2023 Encounters DateTypeDepartmentCare GaupLilwavrnknz82/18/2025 4:01 PM EST - 07/23/2025 11:59 PM ESTHospital Encounter [facility] [address] [place] [address] Discharge Disposition: Home07/22/2025bstract [facility] [address] [place] [address] [place] [address] Shahla Galo DO from Last 3 Months Family History Medical HistoryRelationNameCommentscardiac disorderFathermalignant neoplasm MotherRelationNameStatusCommentsFatherAliveMother Social History Tobacco UseTypesPacks/DayYears UsedDateSmoking Tobacco: Every DayCigarettes Tobacco Cessation:Ready to Q uit: Not Asked; Counseling Given: Not Answered Sex and Gender InformationValueDate RecordedSex Assigned at BirthNot on file Legal QpnIcoq45/26/2022 2:48 PM ESTGender IdentityNot on fileSexual Orientation Not on file Last Filed Vital Signs Vital SignReadingTime TakenCommentsBlood Styasicj686/6909 10:53 AM EDT Brtpn41019/08/2022 10:53 AM TAEVlpjiwvqiiz85.2 ??C (97.1 ??F)05/13/2022 10:53 AM EDTRespiratory Kqsb390305/13/2022 10:53 AM EDTOxygen Ozjovjhsoe02%05/13/2022 10:53 AM EDTInhaled Oxygen Concentration--Jvdgnb70 kg (169 lb 12.1 oz)06/28/2022 9:45 AM BCLCalemk315.8 cm (5' 11.97 )06/28/2022 9:45 AM EDTBody Mass Index23.04 06/28/2022 9:45 AM EDT Plan of Treatment Health MaintenanceDue DateLast DoneCommentsCT Bownsdgtgeah84/05/1961Colonoscopy 1960olorectal Cancer Wdafvnukh72/05/1961reatinine Level1960 Kawsgpbgtgdmmo36/05/1961FIT-DNA (Cologuard)1960FIT1960HIV Screening 1960ipid Panel1960otassium Level1960 5752Jrugpvmwsuwfs52/05/1961 TSH Level1960Yearly Adult Fzxoogvx79/05/1961MMR Vaccines (1 of 1 - Standard series)1961Hepatitis C Dukkjwfky66/05/1979Pneumococcal Vaccine (1 of 2 - PCV)11/08/1979DTaP/Tdap/Td Vaccines (1 - Tdap)1982PSA Prostate Cancer Jdrfkmhuz12/05/2011RSV High Risk: (Elderly (60+) or Population) (1 - Risk 50-74 years 1-dose series)2010Zoster Vaccines (1 of 2)2010 COVID-19 Vaccine (1 - season)2025Influenza Vaccine (#1)2025 Diabetes Cnlyzuqbu66HIB VaccinesAged OutNo longer eligible based on patient's [...] Procedures Procedure NamePriorityDate/TimeAssociated DiagnosisCommentsCT TRANSFER OF OUTSIDE ECIETEzpbelf58/18/2025 4:02 PM EST from Last 3 Months [...] Bansal MD [address] [place] [address] [facility]05/13/22
--- OUTSIDE RECORDS SUMMARY | 2025-09-01 18:24 | XMS_ITS | Patient Health Record ---
Author Organization [facility] [place] Address [address] [place] [address] Care Team Providers Care Insurance Underwriter Name Role Phone Luiz Sue MD Primary Care Provider Unavailabl e Provider, Radiology Unavailable [phone] Shade Nuñez Unavailable [phone] Allergies No Known Allergies Results Component Value Reference Range Notes CBC AUTO DIFF (Not yet revie wed by provider) Interpretation: Performing Lab: Notes/Report: [facility] , White Blood Count 5.8 4.0-11.0 10 3/uL Red Blood Count4.554.70-6.10 10 6/tQXshwonryvt87.314.0-18.0 g/bRKvvxnnnrmn46.4 42.0-54.0 %Mean Corpuscular Anjqxj30.280.0-94.0 fLMean Corpuscular Hemoglobin 31.425.9-34.0 pgMean Corpuscular HGB Conc33.729.9-35.2 g/dLRed Cell Distribution Width13.211.0-15.0 %Platelet Sdstg006077-394 10 3/uLMean Platelet Ezeslf62.89.5- 13.5 fLNeutrophils Percent Auto73.743.0-75.0 %Lymphocytes Percent Auto16.220.5- 60.0 %Monocytes Percent Auto9.21.7-12.0 %Eosinophils Percent Auto0.00.9-7.0 % Basophils Percent Auto0.70.2-2.0 %Immature Granulocytes Pct Auto0.20.0-0.5 % Neutrophils Absolute Auto4.21.4-6.5 10 3/uLLymphocytes Absolute Auto0.91.2-3.8 10 3/uLMonocytes Absolute Auto0.50.3-0.8 10 3/uLEosinophils Absolute Auto0.00.0- 0.7 10 3/uLBasophils Absolute Auto0.00.0-0.1 10 3/uLImmature Granulocytes Abs Auto0.010.00-0.03 10 3/uLPerforming Lab:see noteML - [facility] Reason For Referral No Information Medications Medication [...] W/U Status Risk Notes Problem Centrilobular emphysema (59772103) Centri lobular emphysema (J43.2) ActiveconfirmedDulera + Spiriva > Symbicort + Spiriva > TrelegyProblemChronic respiratory failure (98432438)Chronic respiratory failure with hypoxia (J96.11) ActiveconfirmedProblemLong-term current use of inhaled steroid (122317891)termite helper (current) use of inhaled steroids (Z79.51)ActiveconfirmedProblemCoronary artery disease (78596542)Coronary artery disease (I25.10)ActiveconfirmedProblem Allergic rhinitis (89117852)Allergic rhinitis (J30.9)ActiveconfirmedProblem Chronic systolic heart failure (557506231)Chronic systolic congestive heart failure (I50.22)ActiveconfirmedProblemMental disorder caused by drug (206866367) Cigarette nicotine dependence with nicotine-induced disorder (F17.219)Active dqjhawftd3xaz x 44 years minimumProblemMultiple pulmonary nodules (654175346) Multiple pulmonary nodules (R91.8)Activeconfirmed Vital Signs Heart Rate 101 /min 10/17/2024 Afoclwrzsjq18.9 degrees Jxjepfwvfc17/12/2025Respiratory Rate18 /min10/17/2024 Mmltgred43 %10/17/2024lood pressure mm Hg10/17/20249895Gzfzjq52 in 10/17/2024lood pressure dhmhboqt534 mm Hg10/17/20249924Sjqvrm443.0 lbs10/17/2024MI 23.96 kg/m210/17/2024 Encounters Encounter Location Date Provider Diagnosis Pulmonary Medicine [place] [address] [place] [address] 10/17/2024 [facility] Multiple pulmonary nodules R91.8 ; Centrilobular emphysema J43.2 ; Chronic respiratory failure with hypoxia J96.11 ; Cigarette nicotine dependence with nicotine-induced disorder F17.219 ; Encounter for screening for malignant neoplasm of respiratory organs Z12.2 and assisted (current) use of inhaled steroids Z79.51 Pul[facility] [place] [address] [place] [address] 09/24/2024 [facility] Pulmonary Medicine [address] [place] [address]/09/2025 [facility] Assessments Encounter Date Diagnosis (ICD Code) Assessment [...] respiratory failure with hypoxia (ICD-10 - J96.11) Mydj-to-juym encounter performed with the patient to document [...] on it. LDCT will be due 06/2025. 10/17/2024[facility] for screening for malignant neoplasm of [...] Date [employer] [place] [employer] [address] [place] [address] [id number] Javad Lopezelf - patient is the pigollw90 2022 Medical (General) History Medical History History [...]
--- OUTSIDE RECORDS SUMMARY | 2025-09-01 18:24 | XMS_ITS | Clinical Summary ---
Author Organization [facility] Address [address], [address] [place] [address] Care Team Providers Care Primary Clinician Name Role Phone Lexie Douglas APRN - MARYANNE Primary Care Provider [phone] Allergies No known active allergies Medications MedicationSigDispense [...] & Plan (07/16/2025 4:28 PM EST): A hzkj-ha-ognp encounter was performed with the patient today [...] LUNG CANCER SCREENING (INITIAL/ANNUAL); Future Encounters DateTypeDepartmentCare VtdzLwqtdwdwsjr52/14/2025Orders Only [facility] [address], [address] [place] [address] Harris Haskins MA Centrilobular emphysema (HCC)07/16/2025 3:00 PM ESTOffice Visit [place] [facility] [address], [address] [place] [address] Shade Nuñez DO Centrilobular emphysema (Primary Dx); Chronic respiratory failure with hypoxia; Cigarette nicotine dependence with nicotine-induced disorder; Multiple pulmonary nodules; intermediate (current) use of inhaled steroids; Encounter for screening for lung gwltjm4807/16/2025bstract [facility] [address], [address] [place] [address] Shade Nuñez DO 06/14/2025bstract [facility] [address] [place] [address] Shade Nuñez DO from Last 3 Months Family History Medical HistoryRelationNameCommentsHeart DiseaseFatherCancerMotherRelationName StatusCommentsFatherMother Social History Tobacco UseTypesPacks/DayYears UsedDateSmoking Tobacco: Every PzkEjiluqncdi457.1 Started: 07/15/1981Smokeless Tobacco: Never Tobacco Cessation:Ready to Q uit: No; Counseling Given: Yes Alcohol UseStandard Drinks/WeekCommentsNot Currently0 (1 standard drink = 0.6 oz pure alcohol)Sex and Gender InformationValueDate RecordedSex Assigned at Male06/13/2025 4:17 PM EDTLegal UsgBpaa4410/15/2012 2:57 PM ESTGender IdentityMale 06/13/2025 4:17 PM EDTSexual UfeygamqhryTlnhalgm97/09/2025 4:17 PM EDT Last Filed Vital Signs Vital SignReadingTime TakenCommentsBlood Ukqovaup687/7007/16/2025 3:02 PM EST Hnxcs789107/16/2025 3:02 PM PXRMedkqtcmlqs98.2 ??C (97.1 ??F)07/16/2025 3:02 PM ESTRespiratory Itnc840909/15/2024 3:02 PM ESTOxygen Tdexpbdzgj93%07/16/2025 3:02 PM ESTon room airInhaled Oxygen Concentration--Diigjq21.9 kg (156 lb 6.4 oz) 07/16/2025 3:02 PM GVFYjkwyu167.3 cm (5' 11 )07/16/2025 3:02 PM ESTBody Mass Index21.8107/16/2025 3:02 PM EST Plan of Treatment DateTypeDepartmentCare Team (Latest Contact Info)Ravdcyorgsn56/17/2026 2:00 PM ESTOffice Visit [place] [facility] [address], [address] [place], [place] [id number] Shade Nuñez DO [address] [facility] [address] [place] [address] 3 MO. F/U COPDHealth MaintenanceDue DateLast PyzhBhdvvzzwYnvjio28/05/1971 Depression Vtezbf5311/07/1972HIV nzklln0511/08/1975Hepatitis C gxhpyk9311/07/1978 DTaP/Tdap/Td vaccine (1 - Tdap)11/08/1979Pneumococcal 50+ years Vaccine (1 of 2 - PCV)11/08/19799503Ilqhylxqfre51/05/2006Colorectal Cancer Korvgv2011/07/2005FIT/FOBT: Average risk2005Fecal-DNA (Cologuard): Average risk2005 Sigmoidoscopy/CT /05/2006Shingles vaccine (1 of 2)2010 Respiratory Syncytial Virus (RSV) or age 60 yrs+ (1 - Risk 60-74 years 1-dose series)2020ung Cancer Screening &/or Wgxhetjtvw93/24/2023 06/28/2022Flu vaccine (#1)04/05/2025OVID-19 Vaccine ( season) 2025Hepatitis [...] topic Procedures Procedure NamePriorityDate/TimeAssociated DiagnosisCommentsCBC WITH AUTO DMVUCSMITCIWUniqzyd32/13/2025 2:53 PM EST Centrilobular emphysema (HCC) from [...] / VolumeCollection TimeReceived Time BloodBLOOD SPECIMEN / Njypvfx7407/18/2025 2:53 PM EST Narrative Authorizing ProviderResult TypeResult StatusNathan Samsa DOHEMATOLOGY ORDERABLES Final ResultPerforming OrganizationAddressCity/State/ZIP CodePhone Number OUTSIDE LAB, SEE SCANNED ORDERS from Last 3 Months Insurance Care Teams Team MemberRelationshipSpecialtyStart DateEnd Date Lexie Douglas APRN - MARYANNE [address] [place] [address] PCP - Ifgpaem01/9/25
--- OUTSIDE RECORDS SUMMARY | 2025-09-01 18:24 | XMS_ITS | Clinical Summary ---
Author Organization [facility] Address [address] [place] [address] Care Team Providers Care Employment Service Specialist Name Role Phone Unavailable Primary Care Provider Unavailabl e Social History Tobacco UseTypesPacks/DayYears UsedDateSmoking Tobacco: Never AssessedSex and Gender InformationValueDate RecordedSex Assigned at BirthNot on fileLegal Sex Male08/06/2012 9:51 AM ESTGender IdentityNot on fileSexual OrientationNot on file Plan of Treatment Health MaintenanceDue DateLast DoneCommentsAnxiety Szitwasjp10/05/1979Depression Fvudaszse56/05/1979HIV Hwzqrwtbh52/05/1979Hepatitis C Czlguyfyy29/05/1979 DTaP,Tdap,Td Vaccine (1 - Tdap)11/08/1979Lipid Uwvguzbwb29/05/1996CT Vlhletnqdfst69/05/2006Cologuard (FIT-DNA)11/07/20059959Yykclewyxpf24/05/2006 Colorectal Cancer Eqaarsrxd05/05/2006Diabetes Qzozeokor97/05/2006Fecal Occult Blood2005Prostate Cancer Screening Qhmorszchq60/05/2006Sigmoidoscopy 2005Pneumococcal Vaccine: 50+ (1 of 1 - PCV)2010Shingrix Vaccine (1 of 2)2010Covid-19 Vaccine (1 - 2024- season)2025Influenza Vaccine (#1)2025RSV Vaccine (1 - 1-dose 75+ series)11/08/2035 Insurance
--- OUTSIDE RECORDS SUMMARY | 2025-09-01 18:24 | XMS_ITS | Clinical Summary ---
Author Organization [facility] Address [address] [place] [address] Care Team Providers Care Cattle Alley Worker Name Role Phone Mel Bansal MD Primary Care Provider [phone] Allergies No known active allergies Medications MedicationSigDispense [...] bedtimeActive Active Problems ProblemNoted DateDiagnosed DateThrombosed external qcasgquyeg44/30/2025 Family History Medical HistoryRelationNameCommentsCancerMotherCOPDSister 1Lung cancerSister 1 Breast cancerNeg HxColon cancerNeg HxOvarian cancerNeg HxPancreatic cancerNeg Hx RelationNameStatusCommentsBrotherAlive3 brothersFatherDeceasedMotherDeceased Sister 8Drteevxi8- sistersSister 2Alive Social History Tobacco UseTypesPacks/DayYears UsedDateSmoking Tobacco: Every DayCigarettes Smokeless Tobacco: Never Tobacco Cessation:Ready to Q uit: No; Counseling Given: Not Answered Alcohol UseStandard Drinks/WeekCommentsNot Currently0 (1 standard drink = 0.6 oz pure alcohol)Sex and Gender InformationValueDate RecordedSex Assigned at Not on fileLegal KafBlhu2411/17/2022 7:11 PM EDTGender IdentityNot on fileSexual OrientationNot on file Last Filed Vital Signs Vital SignReadingTime TakenCommentsBlood Ecygswgo78/64003/04/2025 3:44 PM EDT Pulse--Temperature--Respiratory Rate--Oxygen Saturation--Inhaled Oxygen Concentration--Eixein52.1 kg (159 lb)03/11/2025 2:26 PM JZLBgqozu704.3 cm (5' 11 )03/11/2025 2:26 PM EDTBody Mass Index22.18003/11/2025 2:26 PM EDT Plan of Treatment Not on file Insurance Care Teams Team MemberRelationshipSpecialtyStart DateEnd Mel Bansal MD [address] [place] [id number] PCP - GeneralFamily Medicine03/04/25
--- OUTSIDE RECORDS SUMMARY | 2025-09-01 18:24 | XMS_ITS | Clinical Summary ---
Author Organization [facility] Address [address] [place] [address] Care Team Providers Care Automobile Inspector Name Role Phone Lexie Douglas FRANCHISE SALES REPRESENTATIVE-C Primary Care Provider [phone] Allergies No known active allergies Medications MedicationSigDispense QuantityRefillsLast FilledStart DateEnd DateStatus albuterol 90 mcg/actuation inhaler INHALE 2 PUFFS BY MOUTH EVERY 4 HOURS NEEDED FOR SHORTNESS OF BREATH 05/14/2021ctive aspirin 81 mg EC tablet Take 1 tablet every day by oral route.Active meclizine (Antivert) 25 mg tablet TAKE 1 TABLET BY MOUTH EVERY 6 HOURS NEEDED FOR EHODLVUSC86/09/2022ctive mometasone-formoterol (Dulera 200) 200-5 mcg/actuation inhaler INHALE [...] by mouth two times daily. 90 tablet 303/113069/ctive metoprolol succinate XL (Toprol-XL) 25 mg 24 hr tablet Indications:Heart failure with improved ejection fraction (HFimpEF) (CMS/HCC) Take 0.5 tablets (12.5 mg) by mouth in the morning. Do not crush or chew. 45 tablet ctive atorvastatin (Lipitor) 40 mg tablet Indications:Coronary artery disease involving [place] coronary artery of winneb[place] heart without angina pectorisTake 1 tablet (40 mg) by mouth in the morning. 90 tablet ctive Active Problems ProblemNoted DateDiagnosed DateAbdominal pain, right upper qerdfkuu65/28/2025 Acid mifddv2711/30/2024MI 25.0-25.9,adult11/30/20244909Lslyhtboxxvyqw26/28/2025 Ycquyfsiitre42/28/4762Tdzkqnqest12/28/9017Okoxho41/28/2025alculus of gallbladder without cholecystitis without eufjrxdliay07/03/2024 Assessment & Plan (08/10/2024 1:19 PM EST): Relevant Hx: CAD, CHF Course: stable, controlled Daily Update: none Today's Plan: Laparoscopic cholecystectomy, possible cholangiogram Orders from past 72 hours: Full Code; Standing ceFAZolin in dextrose (iso-os) (Ancef) IVPB 2 g Full Code Rhinitis, xusxanek41Lung yrkosm60igarette nicotine dependence with nicotine-induced zgwbyvxj41hronic respiratory failure with hypoxia, on home O2 lkagmim77 Cholelithiasis without jsnqotgemzkjp09entrilobular emphysema Impotencehronic obstructive lung eqzsnmq85HypothyroidismInduration penis mwzhtirh74Right inguinal vrpzoi23hronic systolic congestive heart bbkkffd2810/25/2022 Overview (10/25/2022): recovered EF Coronary artery disease involving winnebago coronary artery of win[place] heart without angina pkwidpym28/ Family History Medical HistoryRelationNameCommentsCancerMotherRelationNameStatusCommentsMother Social History Tobacco [...] 06/26/2024Sexually AbusedNot on file06/26/2024HQ-2AnswerDate RecordedPatient Health Questionnaire-2 Aztao945UT Safety & Environment AnswerDate RecordedFear of Current or Ex-PartnerNot on file10/27/2023Emotionally AbusedNot on file10/27/2023hysically AbusedNot on file10/27/2023Sexually Abused Not on file10/27/2023hysically or Sexually AbusedNot on file10/27/2023Sex and Gender InformationValueDate RecordedSex Assigned at BirthNot on fileLegal Sex Male03/03/2022 10:28 PM EDTGender IdentityNot on fileSexual OrientationNot on file Last Filed Vital Signs Vital SignReadingTime TakenCommentsBlood Bktigglh442/6603 2:22 PM EDT Duogp239611/30/2024 2:22 PM LLHFbhbcouksgn16.6 ??C (97.8 ??F)08/22/2024 2:09 PM ESTRespiratory Paet447310/11/2023 5:30 PM ESTOxygen Erbkwlvkwy80%11/30/2024 2:22 PM EDTInhaled Oxygen Concentration--Uftsre05.8 kg (165 lb)11/30/2024 2:22 PM EDT Opjhmc276.9 cm (6')11/30/2024 2:22 PM EDTBody Mass Index22.38011/30/2024 2:22 PM EDT Plan of Treatment Health MaintenanceDue DateLast DoneCommentsCT Wjccluiviuak65/05/1961Colonoscopy 1960olorectal Cancer Corbguviz17/05/1961FIT-DNA1960FIT1960 FOBT1960Medicare Initial Physical (IPPE)1960 7628Ulnmqgfuijocb53/05/1961 Depression Jelokutsw62/05/1973Pneumococcal Vaccine: Pediatrics (0 to 5 Years) and [...] (Latest Code Status on File) Date ActivatedDate ObzanorejtqRbmbvgpu32/6/2024 1:09 PM08/10/2024 8:08 PM Care Teams Team MemberRelationshipSpecialtyStart DateEnd Date Lexie Douglas FNP-C [address] [place] [address] PCP - GeneralNurse Ixxzoryvzvhq04/22/24
--- NOTE | 2025-09-01 19:32 | ED.GENADUL1 ---
HPI HPI - General Adult General Chief complaint: Back Pain/Injury Stated complaint: Shortness of Breath Time Seen by Provider: 09/01/25 16:41 Source: patient Mode of arrival: Wheelchair Limitations: no limitations History of Present Illness HPI narrative: Patient is a 64-year-old male presenting to the emergency department with left-sided rib pain. Patient had a fall a few days ago and landed on his left side. He was diagnosed with a rib contusion and discharged home on oral pain meds. Today, he twisted in bed awkwardly and felt a pop in the left side of his ribs. He states it is painful to take deep breath. He does have a history of COPD. No flulike symptoms. No fevers. No chest pain. No nausea or vomiting. Related Data Home Medications ?Medication ?Instructions ?Recorded ?Confirmed albuterol sulfate 90 mcg/actuation 2 inh inhalation Q4H PRN shortness 03/11/24 08/19/25 aerosol inhaler of breath or wheezing atorvastatin 40 mg tablet 40 mg PO DAILY 03/11/24 08/19/25 metoprolol succinate 25 mg 12.5 mg PO DAILY 03/11/24 08/19/25 tablet,extended release 24 hr mometasone-formoterol HFA 200 2 inh inhalation Q12H 03/11/24 08/19/25 mcg-5 mcg/actuation aerosol inhaler (Dulera) sacubitril 24 mg-valsartan 26 mg 0.5 tab PO BID 03/11/24 08/19/25 tablet (Entresto) tiotropium bromide 2.5 2 inh inhalation Q24H 03/11/24 08/19/25 mcg/actuation mist for inhalation (Spiriva Respimat) aspirin 81 mg chewable tablet 81 mg PO DAILY 02/15/25 08/19/25 (Children's Aspirin) ipratropium 0.5 mg-albuterol 3 mg 3 ml inhalation Q6H PRN shortness 08/19/25 08/19/25 (2.5 mg base)/3 mL nebulization of breath or wheezing soln oxygen-air delivery systems 08/19/25 08/19/25 Allergies Allergy/AdvReac Type Severity Reaction Status Date / Time No Known Drug Allergies Allergy Verified 09/01/25 16:35 Opioid HPI Opioid Management Most Recent Opioid Data: Last Pain Scale 10 Today, 16:35 Review of Systems ROS Status of ROS 10 or more systems reviewed and unremarkable except as noted in history and below PFSH PFS Medical History FH: cholecystectomy ?Z83.79 - Family history of other diseases of the digestive system (ICD-10) COPD (chronic obstructive pulmonary disease) ?J44.9 - Chronic obstructive pulmonary disease, unspecified (ICD-10) Surgical History H/O knee surgery ?Z98.890 - Other specified postprocedural states (ICD-10) Social History Little interest or pleasure in doing things: not at all Feeling down, depressed, or hopeless: not at all Exam Narrative Exam Narrative: CONSTITUTIONAL: Appears uncomfortable but in nontoxic, speaking full sentences, in no respiratory distress, answering questions and following commands appropriately SKIN: Was warm and dry. EYES: Sclerae white. EARS, NOSE, THROAT: Moist oral mucosa. RESPIRATORY: Mild bilateral expiratory wheezing. No use of accessory muscles. CARDIOVASCULAR: Normal rate and regular rhythm. There is no S3, S4, murmur, rub. GASTROINTESTINAL: Abdomen is nondistended. MUSCULOSKELETAL: There is point tenderness over the posterior lower rib. No crepitus. No step-offs. No overlying skin changes such as ecchymosis or rashes. NEUROLOGIC: Patient is awake and alert. Facies were symmetrical. Constitutional Vital Signs, click to edit/add: Last Vital Signs Temp 97.8 F 09/01/25 16:35 Pulse 49 L 09/01/25 16:35 Resp 20 09/01/25 16:35 BP 103/62 09/01/25 16:35 Pulse Ox 96 09/01/25 16:35 O2 Del Method Room Air 09/01/25 16:35 Course Vital Signs Vital signs: Vital Signs Temperature 97.8 F 09/01/25 16:35 Pulse Rate 49 L 09/01/25 16:35 Respiratory Rate 20 09/01/25 16:35 Blood Pressure 103/62 09/01/25 16:35 Pulse Oximetry 96 09/01/25 16:35 Oxygen Delivery Method Room Air 09/01/25 16:35 Temperature 97.8 F 09/01/25 16:35 Pulse Rate 49 L 09/01/25 16:35 Respiratory Rate 20 09/01/25 16:35 Blood Pressure 103/62 09/01/25 16:35 Pulse Oximetry 96 09/01/25 16:35 Oxygen Delivery Method Room Air 09/01/25 16:35 Medical Decision Making MDM Narrative Medical decision making narrative: Patient is a 64 male, history significant for COPD, presenting to the emergency department for evaluation of left rib pain after twisting awkwardly in bed. History significant for recent fall and left-sided rib contusions. His vital signs on arrival are within normal limits. He is afebrile hemodynamically stable. He is saturating 96% on room air and in no respiratory distress. Examination as noted above. Differential diagnosis includes rib fracture, pneumothorax, or pneumonia. X-rays were obtained. He was given oral [place] for pain. X-rays independently reviewed and interpreted by myself and radiology demonstrated nondisplaced lateral ninth rib fracture without other acute cardiopulmonary findings. I do believe the patient is stable for discharge. They were instructed to follow up with his PCP for further care. Return precautions were given including any new or worsening symptoms, including fevers, cough, shortness of breath. He was instructed on proper pulmonary hygiene. He has a prescription for analgesics already filled at home. Patient understands and agrees to the plan. FINAL IMPRESSION: #Acute left ninth rib fracture DISPOSITION: Discharged home CONDITION: Good Imaging Data Chest x-ray: Attestation: I personally reviewed and interpreted this imaging study as follows: Radiologist's impression: ITS Impressions Ribs X-Ray 09/01/25 17:27 IMPRESSION: Lateral left ninth rib fracture No acute chest findings. Impression dictated by: Milton Díaz M.D. 09/01/2025 6:14 PM Dictation Location[facility]ENTERCard[facility] Pharmaceuticals Electronically authenticated by: [id number] Y Date: 09/01/2025 18:14 Discharge Plan Discharge Chief Complaint: Back Pain/Injury Clinical Impression: Closed rib fracture Patient Disposition: Home, Self-Care Time of Disposition Decision: 18:30 Condition: Good Mode of Transportation: Private Vehicle Prescriptions / Home Meds: No Action albuterol sulfate 90 mcg/actuation HFA aerosol inhaler 2 inh INHALATION Q4H PRN (Reason: shortness of breath or wheezing) atorvastatin 40 mg tablet 40 mg PO DAILY metoprolol succinate 25 mg tablet extended release 24 hr 12.5 mg PO DAILY Dulera 200-5 mcg/actuation HFA aerosol inhaler 2 inh INHALATION Q12H sacubitril-valsartan [Entresto] 24-26 mg tablet 0.5 tab PO BID Spiriva Respimat 2.5 mcg/actuation mist 2 inh INHALATION Q24H aspirin [Children's Aspirin] 81 mg tablet,chewable 81 mg PO DAILY ipratropium-albuterol 0.5 mg-3 mg(2.5 mg base)/3 mL solution for nebulization 3 ml INHALATION Q6H PRN (Reason: shortness of breath or wheezing) (DME) oxygen-air delivery systems Device See Rx Instructions .ROUTE Rx Instructions: As directed Print Language: Vietnamese Instructions: Rib Fracture (ED) Additional Instructions: Follow-up with PCP as needed Discharge Date/Time: 09/01/25 19:03
== END 2025-09-01 19:03 | disposition home or self-care (01) ==
PROVIDERS: Emergency Provider Student in an Organized Health Care Education/Training Program; PCP Nurse Practitioner
DX: S22.32XA Fracture of one rib, left side, initial encounter for closed fracture (principal); J44.9 Chronic obstructive pulmonary disease, unspecified; W19.XXXA Unspecified fall, initial encounter; X50.1XXA Overexertion from prolonged static or awkward postures, initial encounter
CPT/HCPCS: 71101; 99283